=== PATIENT | female | born 1930 | race Caucasian/White ===

== ENCOUNTER 2017-05-22 21:32 | Emergency (ER) | payer OTHER ==
--- NOTE | 2017-05-22 21:51 | PDOC ---
Rapid Medical Evaluation Time Seen by Provider: 05/22/17 21:44 Medical Evaluation: Allergies Allergy/AdvReac Type Severity Reaction Status Date / Time No Known Allergies Allergy Verified 11/16/16 09:17 05/22/17 21:44 I have performed a brief in-person evaluation of this patient. The patient presents with a chief complaint of: Dry cough x3 days. Body aches, fevers, sore throat. Pertinent physical exam findings: PULM:crackles to right base NECK: JVD HEENT: tonsillar swelling. No erythema or exudates. I have ordered the following: CXR, influenza The patient will proceed to the ED for further evaluation. Discharge Disposition - Diagnosis Cough - Referrals Referrals: Diaz Johnson MD [Primary Care Provider] - - Patient Instructions - Post Discharge Activity
[2017-05-22 21:53] VITALS: BP 160/95; PULSE 60; TEMP 98.4; BMI 24.8
[2017-05-22 22:04] LABS: EOS % 9.1 % (0-4.5); HEMATOCRIT 40.8 % (32.4-45.2); HEMOGLOBIN 13.4 GM/dL (10.7-15.3); LYMPH % 23.2 % (8-40); MCH 28.7 pg (25.7-33.7); MCHC 32.8 g/dl (32.0-36.0); MEAN CELL VOLUME 87.4 fl (80-96); MEAN PLT VOLUME 7.7 fl (7.5-11.1); NEUT % 53.7 % (42.8-82.8); RBC 4.67 M/mm3 (3.60-5.2); RDW 13.8 % (11.6-15.6); WHITE BLOOD COUNT 7.1 K/mm3 (4.0-10.0)
[2017-05-22 22:42] LABS: ALBUMIN 3.4 g/dl (3.4-5.0); ALK PHOS 108 U/L (45-117); ANION GAP 7 (8-16); BILIRUBIN,TOTAL 0.4 mg/dL (0.2-1.0); BLOOD UREA NITROGEN 34 mg/dL (7-18); CALCIUM 8.9 mg/dL (8.5-10.1); CHLORIDE 102 mmol/L (98-107); CO2 29 mmol/L (21-32); GLUCOSE,RANDOM 100 mg/dL (74-106); POTASSIUM 3.8 mmol/L (3.5-5.1); SGOT/AST 19 U/L (15-37); SGPT/ALT 9 U/L (12-78); SODIUM 138 mmol/L (136-145); TOT PROT 8.1 g/dl (6.4-8.2)
[2017-05-22] MEDS ORDERED: ALBUTEROL SO4 2.5/IPRATROPIUM 0.5 INH SOL 3 ML VIAL.NEB. NEB ONE (23:09)
--- NOTE | 2017-05-22 23:09 | PDOC ---
History of Present Illness - General Chief Complaint: Respiratory Stated Complaint: COUGH Time Seen by Provider: 05/22/17 21:44 History Source: Patient Exam Limitations: No Limitations - History of Present Illness Initial Comments: This is an 86 YOF with h/o asthma, COPD, a-fib, gastritis, HTN, CO, and CVA, who presents c/o dry cough, sore throat, mild SOB, diffuse body aches, and headache for the past three days. She has been using her normal Advair inhaler as per usual at home, and also uses her home 3 LPM oxygen as needed (not all the time), but has not been taking any additional medications for her symptoms. She denies any fever, chills, nausea, vomiting, diarrhea, constipation, chest pain, new palpitations, leg swelling, or other new symptoms. She is not prone to getting pneumonia. She has gotten bronchitis in the past, but not since 2011. She had the pneumococcal vaccination in 2011. She also had her flu vaccination this year. She denies any current smoking. Past History - Past Medical History Allergies/Adverse Reactions: Allergies Allergy/AdvReac Type Severity Reaction Status Date / Time No Known Allergies Allergy Verified 05/22/17 21:49 Home Medications: Ambulatory Orders Amiodarone HCl 200 mg PO DAILY 05/22/17 Amlodipine Besylate [Norvasc -] 5 mg PO DAILY 05/22/17 Apixaban [Eliquis] 2.5 mg PO BID 05/22/17 Calcium Carbonate/Vitamin D3 [Calcium 600+D Softgel] 1 each PO DAILY 05/22/17 Fluticasone/Salmeterol [Advair Hfa 230-21 Mcg Inhaler] 12 gm IH DAILY 05/22/17 Furosemide [Lasix -] 40 mg PO DAILY 05/22/17 Lipase/Protease/Amylase [Clair Mcgee 36,000 Units Capsule] 1 each PO Q8H 05/22/17 Metoprolol Succinate 25 mg PO BID 05/22/17 Omeprazole 20 mg PO DAILY 05/22/17 Simvastatin 40 mg PO DAILY 05/22/17 Tiotropium [place] [Spiriva] 18 mcg IH PRN 05/22/17 Valsartan [Diovan] 160 mg PO DAILY 05/22/17 Azithromycin 250 mg PO DAILY 4 Days #4 tablet 05/23/17 Asthma: Yes Cancer: No Cardiac Disorders: Yes CVA: Yes (2012 - NO RESIDUAL) COPD: Yes CHF: No Dementia: No Diabetes: No GI Disorders: Yes (GASTRITIS) Disorders: No HTN: Yes Hypercholesterolemia: Yes Liver Disease: No Seizures: No Thyroid Disease: No - Surgical History Abdominal Surgery: No Appendectomy: No Cardiac Surgery: No Cholecystectomy: No Lung Surgery: No Neurologic Surgery: No Orthopedic Surgery: No - Immunization History Immunization Up to Date: No - Suicide/Smoking/Psychosocial Hx Smoking Status: Yes Smoking History: Never smoked Have you smoked in the past 12 months: No Number of Cigarettes Smoked Daily: 0 If you are a former smoker, when did you quit?: 1994 Information on smoking cessation initiated: No Hx Alcohol Use: No Drug/Substance Use Hx: No Substance Use Type: None Hx Substance Use Treatment: No Respiratory Specific PMHX - Complaint Specific PMHX Angina: No Review of Systems - Review of Systems Able to Perform ROS?: Yes Constitutional: Yes: Malaise. No: Chills, Fever, Unexplained wgt Loss HEENTM: Yes: Nose Congestion, Throat Pain Respiratory: Yes: Cough, Shortness of Breath (mild). No: Productive cough Cardiac (ROS): No: Chest Pain, Palpitations ABD/GI: No: Constipated, Diarrhea, Nausea, Vomiting : No: Burning, Dysuria Musculoskeletal: No: Back Pain, Neck Pain Integumentary: No: Bruising, Rash Neurological: Yes: Headache. No: Numbness, Tingling, Weakness, Dizziness Endocrine: No: Unexplained Weight Gain, Unexplained Weight Loss *Physical Exam - Vital Signs Last Vital Signs Temp Pulse Resp BP Pulse Ox 98.4 F 60 20 160/95 91 L 05/22/17 21:50 05/22/17 21:50 05/22/17 21:50 05/22/17 21:50 05/22/17 21:50 - Physical Exam General Appearance: Yes: Nourished, Appropriately Dressed. No: Apparent Distress HEENT: positive: EOMI, Normal Voice, Hearing Grossly Normal. negative: Scleral Icterus (R), Scleral Icterus (L), Nasal Congestion Neck: positive: Trachea midline, Supple. negative: Tender, Rigid Respiratory/Chest: positive: Lungs Clear, Normal Breath Sounds, Decreased Breath Sounds, Wheezing (mild bilateral expiratory). negative: Respiratory Distress, Crackles, Rhonchi, Stridor Cardiovascular: positive: Regular Rhythm, Regular Rate. negative: Edema, JVD, Murmur Gastrointestinal/Abdominal: positive: Normal Bowel Sounds, Soft. negative: Tender, Organomegaly, Pulsatile Mass, Guarding Musculoskeletal: positive: Normal Inspection. negative: Decreased Range of Motion, Vertebral Tenderness Extremity: positive: Normal Capillary Refill, Normal Inspection, Normal Range of Motion. negative: Tender, Cyanosis Integumentary: positive: Normal Color, Dry, Warm. 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 (grossly), Fully Oriented, Alert, Normal Mood/Affect, Normal Response, Motor Strength 09/07 ED Treatment Course - LABORATORY CBC & Chemistry Diagram: 05/22/17 21:50 05/22/17 21:50 - ADDITIONAL ORDERS Additional order review: Laboratory Results 05/22/17 21:50 Sodium 138 Potassium 3.8 Chloride 102 Carbon Dioxide 29 Anion Gap 7 L BUN 34 H Creatinine 2.0 H Creat Clearance w eGFR 23.74 Random Glucose 100 Calcium 8.9 Total Bilirubin 0.4 D AST 19 ALT 9 L Alkaline Phosphatase 108 Total Protein 8.1 Albumin 3.4 05/22/17 21:50 RBC 4.67 MCV 87.4 MCHC 32.8 RDW 13.8 MPV 7.7 Neutrophils % 53.7 Lymphocytes % 23.2 D Monocytes % 13.0 H Eosinophils % 9.1 H D Basophils % 1.0 Medical Decision Making - Medical Decision Making 05/23/17 00:21 On exam she has frequent non-productive cough, decreased breath sounds with faint wheezes. 2+ tonsils but no erythema or exudates, otherwise normal exam. DDX IBNLT bronchitis with concurrent COPD/asthma exacerbation, PNA, URI, etc. Ordered is CBCD, CMP, flu swab, CXR, DuoNebx2. 05/23/17 00:50 Lab work unremarkable, CXR without focal consolidations but with perihilar prominence. On repeat lung exam patient's breath sounds are improved; moving more air. Azithromycin dose ordered for here in the ED and patient will be DCed home with Z-pack Rx. Return precautions are discussed. *DC/Admit/Observation/Transfer Diagnosis at time of Disposition: Bronchitis, History of COPD Asthma Qualifiers: Asthma severity: unspecified severity Asthma persistence: unspecified Asthma complication type: unspecified Qualified Code(s): J45.909 - Unspecified asthma, uncomplicated - Discharge Dispostion Disposition: HOME Condition at time of disposition: Stable Admit: No - Prescriptions Prescriptions: Azithromycin 250 mg PO DAILY 4 Days #4 tablet - Referrals Referrals: Diaz Johnson MD [Primary Care Provider] - - Patient Instructions Printed Discharge Instructions: DI for Acute Bronchitis Additional Instructions: You were seen in the ER for cough and body aches. We did lab work and a chest x- ray as well as a flu swab. The lab work and flu swab do not have concerning results, but the chest x-ray results are consistent with bronchitis. We gave you two breathing treatments and a dose of antibiotics here in the ER. 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 Follow up with your regular doctor in the next two days, or return to the ER with any new or worsening symptoms. Print Language: VIETNAMESE - Post Discharge Activity
[2017-05-22 23:11] LABS: PLATELET COUNT 241 K/MM3 (134-434); PLATELET ESTIMATE ADEQUATE
--- NOTE | 2017-05-22 23:47 | PDOC ---
Attending Attestation - [facility] HPI: 05/22/17 23:56 The patient is a 86 year old female, with a significant past medical history of COPD/asthma, CVA, gastritis, Afib s/p pacemaker, CAD, (3L for 3 minutes PRN), who presents to the emergency department with sore throat, shortness of breath, dry cough, and generalized body aches which has been progressively worsening over the past 3 days. She states this feels like her prior bronchitis experiences. She uses Advair with little to no relief. She denies chest pain, headache and dizziness. She denies fever, chills, nausea , vomit, diarrhea and constipation. She denies dysuria, frequency, urgency and hematuria. PCP: Dr. Franklin - Physicial Exam PE: 05/22/17 23:56 GENERAL: Well developed, well nourished. Awake and alert. No acute distress. HEENT: (+) 2+ Tonsils without exudate or erythema. Normocephalic, atraumatic. PERRLA, EOMI. No conjunctival pallor. Sclera are non-icteric. Moist mucous membranes. NECK: Supple. Full ROM. No JVD. Carotid pulses 2+ and symmetric, without bruits. No thyromegaly. No lymphadenopathy. CARDIOVASCULAR: (+) Left upper hest wall pacemaker. Regular rate and rhythm. No murmurs, rubs, or gallops. Distal pulses are 2+ and symmetric. PULMONARY: (+) Decreased breath sounds bilaterally, persistent dry cough on exam. No wheezing, rales or rhonchi. ABDOMINAL: Soft. Non-tender. Non-distended. No rebound or guarding. No organomegaly. Normoactive bowel sounds. MUSCULOSKELETAL Normal range of motion at all joints. No bony deformities or tenderness. No CVA tenderness. EXTREMITIES: No cyanosis. No clubbing. No edema. No calf tenderness. SKIN: Warm and dry. Normal capillary refill. No rashes. No jaundice. NEUROLOGICAL: Alert, awake, appropriate. Cranial nerves 2-12 intact. Normoreflexic in the upper and lower extremities. Normal speech. Toes are down-going bilaterally. Gait is normal without ataxia. PSYCHIATRIC: Cooperative. Good eye contact. Appropriate mood and affect. __ Documentation prepared by Catina Joel, acting as manager medical affairs for Francisco Javier Anderson DO <Catina Joel - Last Filed: 05/22/17 23:56> - Resident Resident Name: Kasia Nesbitt - ED Attending Attestation I have performed the following: I have examined & evaluated the patient, The case was reviewed & discussed with the resident, I agree w/resident's findings & plan, Exceptions are as noted - Medical Decision Making 05/23/17 20:29 Pt treated and released. <Francisco Javier Anderson - Last Filed: 05/23/17 20:29>
[2017-05-23] MEDS ORDERED: AZITHROMYCIN 500 MG TABLET PO ONE (00:49)
[2017-05-23] MEDS ORDERED: AZITHROMYCIN 500 MG TABLET ONE (01:12)
== END 2017-05-23 01:25 | disposition home or self-care (01) ==
LOC: JER 21:32
PROC: 3E0F7GC Introduction of Other Therapeutic Substance into Respiratory Tract, Via Natural or Artificial Opening (ICD-10-PCS; principal; 2017-05-22)
DX: J40 Bronchitis, not specified as acute or chronic (principal); J44.1 Chronic obstructive pulmonary disease with (acute) exacerbation; J45.909 Unspecified asthma, uncomplicated; I48.91 Unspecified atrial fibrillation; Z79.01 Long term (current) use of anticoagulants; I10 Essential (primary) hypertension; I25.2 Old myocardial infarction; E78.00 Pure hypercholesterolemia, unspecified; Z86.73 Personal history of transient ischemic attack (TIA), and cerebral infarction without residual deficits
CPT/HCPCS: 36415; 71046-TC; 80053; 85025; 87804; 99282-25

== ENCOUNTER 2017-12-11 12:20 | Emergency (ER) | payer OTHER ==
[2017-12-11 12:33] VITALS: PULSE 60; TEMP 97.9; BMI 25.5
--- NOTE | 2017-12-11 13:45 | PDOC ---
History of Present Illness - General Chief Complaint: Pain Stated Complaint: R/O DVT (PCP SENT) Time Seen by Provider: 12/11/17 13:45 History Source: Patient Exam Limitations: No Limitations - History of Present Illness Initial Comments: 12/11/17 19:53 Ms. Owen is a 87 yo F with a hx of COPD, afib, CAD s/p pacemaker and gastritis who presents to the emergency department after referral from PCP for cellulitis vs DVT rule out of right lower extremity. She states the pain began in her distal leg portion 2 weeks ago and a rash appeared 3 days ago. The pain is 8/10 when sitting and 0/10 when standing. Concurrent to this, she developed pain in her left leg without rash. She states she tried using a cream (unknown name) and it provided mild relief for the left leg, but not the right. She denies bugs in the home. Denies the following: recent tracel, prolonged sitting , increased SOB, recent surgery, DVT hx, and prolonged immobilization. Shx: pacemaker 1 year ago Meds: metoprolol, eliquis, furosemide, spirivia, amlodipine, and simvastatin. Allergies: NKDA Social: denies smoking, alcohol, and drug use. 12/11/17 19:55 12/13/17 09:13 Past History - Past Medical History Allergies/Adverse Reactions: Allergies Allergy/AdvReac Type Severity Reaction Status Date / Time No Known Allergies Allergy Verified 12/11/17 12:29 Home Medications: Ambulatory Orders Amiodarone HCl 100 mg PO DAILY 05/22/17 Amlodipine Besylate [Norvasc -] 5 mg PO DAILY 05/22/17 Apixaban [Eliquis] 2.5 mg PO BID 05/22/17 Calcium Carbonate/Vitamin D3 [Calcium 600+D Softgel] 1 each PO DAILY 05/22/17 Fluticasone/Salmeterol [Advair Hfa 230-21 Mcg Inhaler] 12 gm IH DAILY 05/22/17 Furosemide [Lasix -] 40 mg PO DAILY 05/22/17 Lipase/Protease/Amylase [[place]air [place] 36,000 Units Capsule] 1 each PO Q8H 05/22/17 Metoprolol Succinate 25 mg PO BID 05/22/17 Omeprazole 40 mg PO DAILY 05/22/17 Simvastatin 40 mg PO DAILY 05/22/17 Tiotropium [place] [Spiriva] 18 mcg IH PRN 05/22/17 Valsartan [Diovan] 160 mg PO DAILY 05/22/17 Cephalexin [Keflex] 500 mg PO BID #14 capsule 12/11/17 Asthma: Yes Cancer: No Cardiac Disorders: Yes CVA: Yes (2011 - NO RESIDUAL) COPD: Yes CHF: No Dementia: No Diabetes: No GI Disorders: Yes (GASTRITIS) Disorders: No HTN: Yes Hypercholesterolemia: Yes Liver Disease: No Seizures: No Thyroid Disease: No - Surgical History Abdominal Surgery: No Appendectomy: No Cardiac Surgery: No Cholecystectomy: No Lung Surgery: No Neurologic Surgery: No Orthopedic Surgery: No - Immunization History Immunization Up to Date: No - Suicide/Smoking/Psychosocial Hx Smoking Status: Yes Smoking History: Former smoker Have you smoked in the past 12 months: No Number of Cigarettes Smoked Daily: 0 If you are a former smoker, when did you quit?: 1994 Information on smoking cessation initiated: No Hx Alcohol Use: No Drug/Substance Use Hx: No Substance Use Type: None Hx Substance Use Treatment: No Review of Systems - Review of Systems Constitutional: No: Chills, Diaphoresis, Fever HEENTM: No: Recent change in vision, Nose Pain, Throat Pain, Mouth Pain Respiratory: No: Cough, Shortness of Breath Cardiac (ROS): No: Chest Pain, Palpitations ABD/GI: No: Constipated, Diarrhea, Nausea, Rectal Bleeding, Vomiting, Tarry Stools : No: Burning, Dysuria, Hematuria Musculoskeletal: Yes: Muscle Pain (legs right and left). No: Back Pain Integumentary: Yes: Pruritus (left leg), Rash (right leg). No: Bruising Neurological: No: Headache Psychiatric: No: Change in Appetite Endocrine: No: Unexplained Weight Gain Hematologic/Lymphatic: No: Anemia *Physical Exam - Vital Signs Last Vital Signs Temp Pulse Resp BP Pulse Ox 97.9 F 60 20 147/68 93 L 12/11/17 12:29 12/11/17 12:29 12/11/17 12:29 12/11/17 12:29 12/11/17 12:29 - Physical Exam General Appearance: Yes: Nourished, Appropriately Dressed HEENT: positive: EOMI, JANETT Neck: negative: Lymphadenopathy (R), Lymphadenopathy (L) Respiratory/Chest: positive: Lungs Clear, Normal Breath Sounds Cardiovascular: positive: Regular Rhythm, Regular Rate, S1, S2 Vascular Pulses: Dorsalis-Pedis (R): 3+, Doralis-Pedis (L): 3+ Gastrointestinal/Abdominal: positive: Normal Bowel Sounds. negative: Tender Lymphatic: negative: Adenopathy Musculoskeletal: negative: CVA Tenderness Extremity: positive: Normal Capillary Refill, Calf Tenderness (tenderness to palpation in the right calf and mild tenderness to palpation on the left. ), Other (no swelling noted bilaterally. erythamatous rash located distal tibia to proximal foot on left side. 3 raised papule lesions consistent with insect bites on left leg in the proximal tibia. 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 OK interval 164 ms, qtc 462 ms, qrs 112 ms. av dual paced. no st elevations. ED Treatment Course - LABORATORY CBC & Chemistry Diagram: 12/11/17 16:57 12/11/17 16:57 Medical Decision Making - Medical Decision Making 12/13/17 09:20 Ms. Owen is a 87 yo F with a hx of afib, CAD, COPD, and gastritis presenting today for LLE rash and pain after referral from PCP for DVT vs cellulitis r/o. Based on hx and exam, ddx includes cellulitis vs DVT vs atopic dermatitis 2/2 insect bite vs nec fasc r/o. Initial vitals: Initial Vital Signs Temp Pulse Resp BP Pulse Ox 97.9 F 60 20 147/68 93 L 12/11/17 12:29 12/11/17 12:29 12/11/17 12:29 12/11/17 12:29 12/11/17 12:29 Work up: Laboratory Tests 12/11/17 12/11/17 16:57 16:57 WBC 9.9 RBC 4.75 Hgb 14.0 Hct 42.3 MCV 89.0 MCH 29.5 MCHC 33.1 RDW 13.4 Plt Count 229 MPV 8.5 D Absolute Neuts (auto) 6.5 Neutrophils % 65.6 D Lymphocytes % 19.3 Monocytes % 10.7 H Eosinophils % 3.4 Basophils % 1.0 Nucleated RBC % 0 Sodium 145 Potassium 3.9 Chloride 104 Carbon Dioxide 28 Anion Gap 13 BUN 37 H Creatinine 1.9 H Creat Clearance w eGFR 25.12 Random Glucose 81 Calcium 9.6 Total Bilirubin 0.4 AST 26 ALT 10 L Alkaline Phosphatase 101 Total Protein 8.3 H Albumin 3.6 Xray studies showed no abnormalities. Duplex US bilateral showed no DVT. Discharged to home with follow up care and keflex abx outpatient course. 12/13/17 09:20 *DC/Admit/Observation/Transfer Diagnosis at time of Disposition: Cellulitis Qualifiers: Site of cellulitis: extremity Site of cellulitis of extremity: lower extremity Laterality: right Qualified Code(s): L03.115 - Cellulitis of right lower limb - Discharge Dispostion Disposition: HOME Decision to Admit order: No - Prescriptions Prescriptions: Cephalexin [Keflex] 500 mg PO BID #14 capsule - Referrals Referrals: Diaz Johnson MD [Primary Care Provider] - - Patient Instructions Printed Discharge Instructions: DI for Cellulitis -- Adult Additional Instructions: You have been diagnosed with cellulitis. Please see your primary care doctor within 1 day after discharge for follow up care. If symptoms worsen or new concerning symptoms arise, please return to the emergency department. Print Language: ESTONIAN - Post Discharge Activity
--- NOTE | 2017-12-11 15:24 | PDOC ---
Attending Attestation - Resident Resident Name: Bandar Vaca - ED Attending Attestation I have performed the following: I have examined & evaluated the patient, The case was reviewed & discussed with the resident, I agree w/resident's findings & plan, Exceptions are as noted - HPI HPI: 12/11/17 15:24 87 yo F h/o Afib, COPD, CAD s/p PPM, gastritis p/w RLE rash Sent be PMD (Dr Franklin) Pain x 2 weeks, burning pain x 2 days No h/o DVT No immobilization No fevers or chills 12/11/17 18:26 - Physicial Exam PE: 12/11/17 15:23 GENERAL: The patient is in no acute distress. LUNGS: Breath sounds equal, clear to auscultation bilaterally. HEART:Regular rate and rhythm, normal S1 and S2 ABDOMEN: Soft, nontender EXTREMITIES: Normal range of motion, no edema. Right lower leg with erythema, tenderness, NEUROLOGICAL: Cranial nerves II through XII grossly intact. Normal speech. No focal neurological deficits. MUSCULOSKELETAL: Back non-tender to palpation, no CVA tenderness SKIN: Multiple arthropod lesions noted to right leg 12/11/17 18:27 - Medical Decision Making 12/11/17 18:28 EKG: Paced 60 bpm 87 yo F with right leg swelling and erythema (pt on NOAC) Duplex negative Xray pending Skin changes consistent with cellulitis Keflex upon discharge Clinical Impression: Cellulitis, initial presentation Arthropod bites, initial presentation
[2017-12-11 17:13] LABS: EOS % 3.4 % (0-4.5); HEMATOCRIT 42.3 % (32.4-45.2); LYMPH % 19.3 % (8-40); MCH 29.5 pg (25.7-33.7); MCHC 33.1 g/dl (32.0-36.0); MEAN PLT VOLUME 8.5 fl (7.5-11.1); MONO % 10.7 % (3.8-10.2); NEUT % 65.6 % (42.8-82.8); PLATELET COUNT 229 K/MM3 (134-434); RBC 4.75 M/mm3 (3.60-5.2); RDW 13.4 % (11.6-15.6); WHITE BLOOD COUNT 9.9 K/mm3 (4.0-10.0)
[2017-12-11 18:08] LABS: ALBUMIN 3.6 g/dl (3.4-5.0); ANION GAP 13 (8-16); BLOOD UREA NITROGEN 37 mg/dL (7-18); CALCIUM 9.6 mg/dL (8.5-10.1); CHLORIDE 104 mmol/L (98-107); CO2 28 mmol/L (21-32); GLUCOSE,RANDOM 81 mg/dL (74-106); SODIUM 145 mmol/L (136-145)
[2017-12-11 18:13] LABS: ALK PHOS 101 U/L (45-117); BILIRUBIN,TOTAL 0.4 mg/dL (0.2-1.0); CREATININE 1.9 mg/dL (0.55-1.02); SGPT/ALT 10 U/L (12-78); TOT PROT 8.3 g/dl (6.4-8.2)
[2017-12-11 18:21] LABS: POTASSIUM 3.9 mmol/L (3.5-5.1); SGOT/AST 26 U/L (15-37)
[2017-12-11 19:22] VITALS: BP 165/69
--- NOTE | 2017-12-12 16:49 | EKG ---
Test Reason : Blood Pressure : / mmHG Vent. Rate : 060 BPM Atrial Rate : 060 BPM P-R Int : 164 ms QRS Dur : 112 ms QT Int : 462 ms P-R-T Axes : 070 -60 074 degrees QTc Int : 462 ms AV dual-paced rhythm Biventricular pacemaker detected ABNORMAL ECG WHEN COMPARED WITH ECG OF 15-AUG-2015 22:08, ELECTRONIC VENTRICULAR PACEMAKER HAS REPLACED ATRIAL FIBRILLATION VENT. RATE HAS DECREASED BY 83 BPM Confirmed by JUSTEN THIBODEAUX MD ([id number]) on 12/12/2017 3:49:27 PM Referred By: Confirmed By:JUSTEN THIBODEAUX MD
== END 2017-12-11 20:11 | disposition home or self-care (01) ==
LOC: JER 12:20
DX: L03.115 Cellulitis of right lower limb (principal); I48.91 Unspecified atrial fibrillation; I25.10 Atherosclerotic heart disease of native coronary artery without angina pectoris; J44.9 Chronic obstructive pulmonary disease, unspecified
CPT/HCPCS: 36415; 71046-TC-FY; 73590-TC-LT-FY; 73590-TC-RT-FY; 73610-TC-LT-FY; 73610-TC-RT-FY; 73630-TC-LT; 73630-TC-RT-FY; 80053; 85025; 93005; 93010; 93970-TC; 99282-25

== ENCOUNTER 2018-05-18 11:17 | Inpatient (IN) | payer OTHER ==
[2018-05-18] MEDS ORDERED: ALBUTEROL SO4 2.5/IPRATROPIUM 0.5 INH SOL 3 ML VIAL.NEB. NEB ONE (11:35)
[2018-05-18] MEDS: ALBUTEROL SO4 2.5/IPRATROPIUM 0.5 INH SOL 3 ML VIAL.NEB. NEB SCH ×3 (11:59→12:30)
--- NOTE | 2018-05-18 12:00 | PDOC ---
History of Present Illness - General Chief Complaint: Respiratory Stated Complaint: DIFFICULTY BREATHING Time Seen by Provider: 05/18/18 11:37 History Source: Patient Exam Limitations: Language Barrier - History of Present Illness Initial Comments: 87 yo F w a pmh of COPD, afib, HTN, UT, CVA, CAD s/p pacemaker, Cellulitis of lower extremities and gastritis who presents to the emergency department with shortness of breath and difficulty breathing. The patient has no complaints and says she feels well. She does not look well and looks short of breath and having a hard time breathing. Her daughter and granddaughter at bedside say she is not a woman who complains and she has been sick and feeling unwell since April 28. She has had on and off chest pain associated with SOB. The chest pain occurs when she coughs, and the cough is productive. She has also had fevers, muscle aches, rigors, and diarrhea. Patient also endorses eye, lip and facial swelling recently. On re-assessment - I walked into the room and the patient was sitting comfortably eating a chicken panini and sami fries. She has no current complaints. She denies having a headache, blurry vision, neck pain, current chest pain, n/v/ c/d, back pain, abdominal pain. PSH: pacemaker 1 year ago, Unclog a clot from a vein, Femoral popliteal bypass, tubal ligation bladder lift( ?) Allergies: NKDA, NKA Social: denies current smoking, alcohol, and drug use. Former smoker (21 years ago). PCP: Diaz Johnson Urologist: Dr Hao Kincaid Past History - Past Medical History Allergies/Adverse Reactions: Allergies Allergy/AdvReac Type Severity Reaction Status Date / Time No Known Allergies Allergy Verified 05/18/18 11:21 Home Medications: Ambulatory Orders Amlodipine Besylate [Norvasc -] 5 mg PO DAILY 05/22/17 Apixaban [Eliquis] 2.5 mg PO BID 05/22/17 Calcium Carbonate/Vitamin D3 [Calcium 600+D Softgel] 1 each PO DAILY 05/22/17 Fluticasone/Salmeterol [Advair Hfa 230-21 Mcg Inhaler] 12 gm IH DAILY 05/22/17 Furosemide [Lasix -] 40 mg PO DAILY 05/22/17 Lipase/Protease/Amylase [Clair Mcgee 36,000 Units Capsule] 1 each PO Q8H 05/22/17 Metoprolol Succinate 25 mg PO BID 05/22/17 Omeprazole 40 mg PO DAILY 05/22/17 Simvastatin 40 mg PO DAILY 05/22/17 Tiotropium [place] [Spiriva] 18 mcg IH PRN 05/22/17 Valsartan [Diovan] 160 mg PO DAILY 05/22/17 Asthma: Yes Cancer: No Cardiac Disorders: Yes CVA: Yes (2011 - NO RESIDUAL) COPD: Yes CHF: No Dementia: No Diabetes: No GI Disorders: Yes (GASTRITIS) Disorders: No HTN: Yes Hypercholesterolemia: Yes Liver Disease: No Seizures: No Thyroid Disease: No - Surgical History Abdominal Surgery: No Appendectomy: No Cardiac Surgery: No Cholecystectomy: No Lung Surgery: No Neurologic Surgery: No Orthopedic Surgery: No - Immunization History Immunization Up to Date: No - Suicide/Smoking/Psychosocial Hx Smoking Status: Yes Smoking History: Former smoker Have you smoked in the past 12 months: No Number of Cigarettes Smoked Daily: 0 If you are a former smoker, when did you quit?: 1994 Information on smoking cessation initiated: No Hx Alcohol Use: No Drug/Substance Use Hx: No Substance Use Type: None Hx Substance Use Treatment: No Review of Systems - Review of Systems Able to Perform ROS?: Yes Comments:: CONSTITUTIONAL: Absent: fever, no chills, no fatigue EYES: Absent: visual changes ENT: Absent: ear pain, no sore throat CARDIOVASCULAR: Absent: chest pain, no palpitations RESPIRATORY: Absent: cough, no SOB GI: Absent: abdominal pain, no nausea, no vomiting, no constipation, no diarrhea GENITOURINARY: Absent: dysuria, no frequency, no hematuria MUSKULOSKELETAL: Absent: back pain, no arthralgia, no myalgia SKIN: Absent: rash NEURO: Absent: headache *Physical Exam - Vital Signs Last Vital Signs Temp Pulse Resp BP Pulse Ox 97.9 F 71 20 149/51 L 72 L 05/18/18 11:18 05/18/18 11:18 05/18/18 11:18 05/18/18 11:18 05/18/18 11:18 Patient is satting at 90% on 2L NC at bedside. - Physical Exam Comments: GENERAL: Well-appearing, well-nourished. No apparent distress. HEENT: Normocephalic, atraumatic. PERRL, EOM intact. CARDIOVASCULAR: Normal S1, S2. Tachycardic rate and regular rhythm. PULMONARY: Diffuse expiratory wheezes. No crackles, rales, or rhonchi. ABDOMEN: Soft, non-distended, non-tender. EXTREMITIES: Normal ROM in all four extremities. No gross deformities. SKIN: Warm, dry. No rash NEUROLOGICAL: No focal neurological deficits. Moderate Sedation - Procedure Monitoring Vital Signs: Procedure Monitoring Vital Signs Temperature 97.9 F 05/18/18 11:18 Pulse Rate 71 05/18/18 11:18 Respiratory Rate 20 05/18/18 11:18 Blood Pressure 149/51 L 05/18/18 11:18 O2 Sat by Pulse Oximetry (%) 72 L 05/18/18 11:18 ED Treatment Course - LABORATORY CBC & Chemistry Diagram: 05/18/18 12:00 05/18/18 13:35 Medical Decision Making - Medical Decision Making 87 yo F w a pmh of COPD, afib, HTN, UT, CVA, CAD s/p pacemaker, Cellulitis of lower extremities and gastritis who presents to the emergency department with shortness of breath and difficulty breathing. - Productive cough for 2 weeks. DDx IBNLT: COPD, CHF, ACS/UT, PNA, sepsis, gastroenteritis. Plan: Labs, EKG, CXR, Breathing treatments, Re-assess. EKG is Atrial sensed ventricular paced rhythm. CXR is very congested. productive cough and recent fevers. I suspect her recent URI/Bronchitis events triggered her COPD exacerbation. - There can also be an element of CHF in this picture. - Patient did better after breathing treatment. Bronchitis: Starting Abx with Ceftriaxone in ED. *DC/Admit/Observation/Transfer Diagnosis at time of Disposition: Bronchitis, COPD exacerbation - Discharge Dispostion Decision to Admit order: Yes - Referrals - Patient Instructions - Post Discharge Activity
[2018-05-18 12:30] LABS: BASO % 1.1 % (0-2.0); EOS % 2.9 % (0-4.5); HEMOGLOBIN 12.3 GM/dL (10.7-15.3); LYMPH % 19.5 % (8-40); MCH 29.4 pg (25.7-33.7); MCHC 33.2 g/dl (32.0-36.0); MEAN CELL VOLUME 88.7 fl (80-96); MEAN PLT VOLUME 8.2 fl (7.5-11.1); MONO % 8.6 % (3.8-10.2); NEUT % 67.9 % (42.8-82.8); PLATELET COUNT 263 K/MM3 (134-434); RBC 4.17 M/mm3 (3.60-5.2); RDW 14.8 % (11.6-15.6); WHITE BLOOD COUNT 8.8 K/mm3 (4.0-10.0)
[2018-05-18 12:39] LABS: INR 1.23 (0.83-1.09); PROTHROMBIN TIME (PATIENT) 14.6 SEC (9.7-13.0)
--- NOTE | 2018-05-18 12:51 | PDOC ---
Attending Attestation - HPI HPI: 05/18/18 12:53 The patient is a 87 year old female, with a significant past medical history of COPD (3L @ home O2), asthma, CVA, gastritis, Afib (s/p pacemaker), CAD, and [place], who presents to the emergency department with, worsening shortness of breath with associated orthopnea. As per patients family at bedside, she had been sick with a cough and chills for a month and over the course of the past few days she has become increasingly short of breath despite the use of her supplemental oxygen. Family notes she has been unable to sleep well at night secondary to her shortness of breath thus, she has been falling asleep sitting upright. She denies recent headache or dizziness. She denies recent diarrhea or constipation. She denies recent dysuria, frequency, urgency or hematuria. She denies recent chest pain or palpitations. Allergies: NKA Past surgical history: None reported. Social history: > Former smoker (21 years ago) Primary Care Physician: Dr. Diaz Johnson Urologist: Dr. Hao Kincaid <Karen Valdez - Last Filed: 05/18/18 12:53> - Resident Resident Name: Kristofer Vides - ED Attending Attestation I have performed the following: I have examined & evaluated the patient, The case was reviewed & discussed with the resident, I agree w/resident's findings & plan, Exceptions are as noted - Physicial Exam PE: GENERAL: Awake, alert, and fully oriented, in no acute distress HEAD: No signs of trauma EYES: PERRLA, EOMI, sclera anicteric, conjunctiva clear ENT: Auricles normal inspection, hearing grossly normal, nares patent, oropharynx clear without exudates. Moist mucosa NECK: Normal ROM, supple, no lymphadenopathy, JVD, or masses LUNGS: Dec air entry B/L with exp wheezes. HEART: Regular rate and rhythm, normal S1 and S2, no murmurs, rubs or gallops ABDOMEN: Soft, nontender, normoactive bowel sounds. No guarding, no rebound. No masses EXTREMITIES: Normal range of motion, 1+ pitting edema BLE. No clubbing or cyanosis. No cords, erythema, or tenderness NEUROLOGICAL: Cranial nerves II through XII grossly intact. Normal speech. Motor and sensation intact SKIN: Warm, Dry, normal turgor, no rashes or lesions noted. - Medical Decision Making Pt with dec air entry and wheezes on arrival in ED, but also with signs of CHF. Desatting on arrival, improved with initial neb. Will treat for asthma/COPD, await labs. Likely admit. <Martina White - Last Filed: 05/18/18 14:29> Attestations - Attestations 05/18/18 12:54 Documentation prepared by Karen Valdez, acting as certified medical records coder for Martina White MD. <Karen Valdez - Last Filed: 05/18/18 12:53>
[2018-05-18 14:25] LABS: ALBUMIN 2.8 g/dl (3.4-5.0); ALK PHOS 94 U/L (45-117); ANION GAP 6 MMOL/L (8-16); BILIRUBIN,TOTAL 0.3 mg/dL (0.2-1); BLOOD UREA NITROGEN 30 mg/dL (7-18); CALCIUM 8.9 mg/dL (8.5-10.1); CHLORIDE 102 mmol/L (98-107); CO2 32 mmol/L (21-32); CREATININE 1.9 mg/dL (0.55-1.3); GLUCOSE,RANDOM 148 mg/dL (74-106); N-TERMINAL BNP 1315.7 pg/ml (5-450); SGOT/AST 18 U/L (15-37); SGPT/ALT 9 U/L (13-61); SODIUM 141 mmol/L (136-145); TOT PROT 7.3 g/dl (6.4-8.2)
[2018-05-18] MEDS ORDERED: FUROSEMIDE 40 MG/4 ML INJECTABLE VIAL IVPUSH ONE (15:55)
[2018-05-18] MEDS ORDERED: CEFTRIAXONE 1,000 MG in DEXTROSE 5%-WATER - 50 ML IVPB ONE (15:58)
[2018-05-18] MEDS ORDERED: FUROSEMIDE 40 MG/4 ML INJECTABLE VIAL ONE (16:01)
[2018-05-18] MEDS ORDERED: CEFTRIAXONE 1 GM/50 ML BAG ONE (16:22)
[2018-05-18] MEDS ORDERED: methylPREDNISolone NA SUCC 125 MG/2 ML VIAL IVPB ONE (16:37)
[2018-05-18] MEDS ORDERED: methylPREDNISolone NA SUCC 125 MG/2 ML VIAL ONE (16:40)
--- NOTE | 2018-05-18 17:30 | HP ---
CHIEF COMPLAINT: Shortness of breath PCP: Dr. Franklin HISTORY OF PRESENT ILLNESS: Patient is an 87 year old female with history of asthma, COPD, Afib on eliquis, hypertension, prior HI and CVA presents with complaint of shortness of breath. Symptoms have been ongoing since the last week of April when patient endorses subjective fevers, chills, cough productive with whitish sputum. The patient had been hesitant to see a physician sooner, anticipating the symptoms would spontaneously resolve. Today, she continues to endorse worsening shortness of breath associated dry cough and chills. She endorses sharp chast pain associated with repeated coughing episodes. She denies hemoptysis, or stridor. She denies abdominal pain, nausea, vomiting, diarrhea, constipation, dysuria, hematuria. At baseline she ambulates with walker, and is able to walk approx. 1-2 blocks before becoming short of breath. She uses at least three pillows to sleep at night. ER course was notable for: (1) SoluMedrol 125mg IV push, Lasix 40mg IV push, DuoNebs, (2) Rocephin 1 gram IV (3) Chest radiograph Recent Travel: PAST MEDICAL HISTORY: asthma, COPD, Afib on eliquis, CAD s/p poaceamker, hypertension, prior HI and CVA PAST SURGICAL HISTORY: pacemaker placement 1 year ago, urethral sling, Social History: Smoking: former 1 pack per day smoker quit 20 years ago. 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 Family History: Mother: [place], at 82 years old Father: Patient unable to provide history as she never knew her father Allergies: Aspirin- patient reprots hives, and abdominal pain No Known Allergies Allergy (Verified 05/18/18 11:21) HOME MEDICATIONS: Home Medications Medication Instructions Recorded Amlodipine Besylate [Norvasc -] 5 mg PO DAILY 05/22/17 Apixaban [Eliquis] 2.5 mg PO BID 05/22/17 Calcium Carbonate/Vitamin D3 1 each PO DAILY 05/22/17 [Calcium 600+D Softgel] Fluticasone/Salmeterol [Advair Hfa 12 gm IH DAILY 05/22/17 230-21 Mcg Inhaler] Furosemide [Lasix -] 40 mg PO DAILY 05/22/17 Lipase/Protease/Amylase [Clair Mcgee 1 each PO Q8H 05/22/17 36,000 Units Capsule] Metoprolol Succinate 25 mg PO BID 05/22/17 Omeprazole 40 mg PO DAILY 05/22/17 Simvastatin 40 mg PO DAILY 05/22/17 Tiotropium [place] [Spiriva] 18 mcg IH PRN 05/22/17 Valsartan [Diovan] 160 mg PO DAILY 05/22/17 REVIEW OF SYSTEMS CONSTITUTIONAL: Admits: chills, malaise. Absent: fever, diaphoresis, generalized weakness, loss of appetite, weight change HEENT: Absent: rhinorrhea, nasal congestion, throat pain, throat swelling, difficulty swallowing, mouth swelling, ear pain, eye pain, visual changes CARDIOVASCULAR: Admits: chest pain (with coughing) Absent: syncope, palpitations, irregular heart rate, lightheadedness, peripheral edema RESPIRATORY: Admits: cough, shortness of breath, dyspnea with exertion, orthopnea, wheezing. Absent: stridor, hemoptysis GASTROINTESTINAL: Absent: abdominal pain, abdominal distension, nausea, vomiting, diarrhea, constipation, melena, hematochezia GENITOURINARY: Absent: dysuria, frequency, urgency, hesitancy, hematuria, flank pain, genital pain MUSCULOSKELETAL: Absent: myalgia, arthralgia, joint swelling, back pain, neck pain SKIN: Absent: rash, itching, pallor HEMATOLOGIC/IMMUNOLOGIC: Absent: easy bleeding, easy bruising, lymphadenopathy, frequent infections ENDOCRINE: Absent: unexplained weight gain, unexplained weight loss, heat intolerance, cold intolerance NEUROLOGIC: Absent: headache, focal weakness or paresthesias, dizziness, unsteady gait, seizure, mental status changes, bladder or bowel incontinence PSYCHIATRIC: Absent: anxiety, depression, suicidal or homicidal ideation, hallucinations. PHYSICAL EXAMINATION Vital Signs - 24 hr 05/18/18 05/18/18 05/18/18 11:18 12:42 13:14 Temperature 97.9 F Pulse Rate 71 Pulse Rate [ 66 Apical] Respiratory 20 24 H Rate Blood Pressure 149/51 L Blood Pressure 149/71 [Right Arm] O2 Sat by Pulse 72 L 90 L 93 L Oximetry (%) GENERAL: Awake, alert, and fully oriented, in no acute distress. HEAD: Normal with no signs of trauma. EYES: Pupils equal, round and reactive to light, extraocular movements intact, sclera anicteric. EARS, NOSE, THROAT: Oropharynx clear without exudates. Dry mucous membranes. NECK: Normal range of motion, supple without lymphadenopathy. LUNGS: Poor air entry B/L. Faint rhonchi, and expiratory wheezes auscultated at B/L lower lobes. No accessory muscle use. HEART: Regular rate and rhythm, normal S1 and S2 without murmur, rub or gallop. Chest pain reproducible upon palpation. ABDOMEN: Soft, nontender, not distended. Normoactive bowel sounds, no guarding, no rebound, no masses. No hepatomegaly or splenomegaly. MUSCULOSKELETAL: Normal range of motion at all joints. No bony deformities or tenderness. No CVA tenderness. UPPER EXTREMITIES: 2+ radial pulses, warm, well-perfused. LOWER EXTREMITIES: 2+ dorsalis pedis pulses, warm, well-perfused. No calf tenderness. 1+ peripheral edema B/L. NEUROLOGICAL: Cranial nerves II-XII intact. Normal speech. Strength 5/5 b/l upper and lower extremities. PSYCHIATRIC: Cooperative. Appropriate mood and affect upon my encounter SKIN: Warm, dry, Laboratory Results - last 24 hr 05/18/18 05/18/18 05/18/18 12:00 12:00 12:00 WBC 8.8 RBC 4.17 Hgb 12.3 Hct 37.0 MCV 88.7 MCH 29.4 MCHC 33.2 RDW 14.8 D Plt Count 263 MPV 8.2 Absolute Neuts (auto) 6.0 Neutrophils % 67.9 Lymphocytes % 19.5 Monocytes % 8.6 Eosinophils % 2.9 Basophils % 1.1 Nucleated RBC % 0 PT with INR 14.60 H INR 1.23 H Sodium Cancelled Potassium Cancelled Chloride Cancelled Carbon Dioxide Cancelled Anion Gap Cancelled BUN Cancelled Creatinine Cancelled Creat Clearance w eGFR Cancelled Random Glucose Cancelled Calcium Cancelled Total Bilirubin Cancelled AST Cancelled ALT Cancelled Alkaline Phosphatase Cancelled Creatine Kinase Cancelled Troponin I Cancelled B-Natriuretic Peptide Cancelled Total Protein Cancelled Albumin Cancelled Influenza A (Rapid) Influenza B (Rapid) 05/18/18 05/18/18 12:04 13:35 WBC RBC Hgb Hct MCV MCH MCHC RDW Plt Count MPV Absolute Neuts (auto) Neutrophils % Lymphocytes % Monocytes % Eosinophils % Basophils % Nucleated RBC % PT with INR INR Sodium 141 Potassium 4.0 Chloride 102 Carbon Dioxide 32 Anion Gap 6 L BUN 30 H Creatinine 1.9 H Creat Clearance w eGFR 25.12 Random Glucose 148 H Calcium 8.9 Total Bilirubin 0.3 AST 18 ALT 9 L Alkaline Phosphatase 94 Creatine Kinase 99 Troponin I < 0.02 B-Natriuretic Peptide 1315.7 H Total Protein 7.3 Albumin 2.8 L Influenza A (Rapid) Negative Influenza B (Rapid) Negative ASSESSMENT/PLAN: Patient is an 87 year old female with history of asthma, COPD, Afib on eliquis, hypertension, prior HI and CVA presents with complaint of shortness of breath. COPD exacerbation -Likely secondary to bronchitis vs. community acquired pneumonia. There may also be element of CHF exacerbation contributing to her shortness of breath. -Chest Xray shows B/L infiltrates -Influenza A, B negative -Patient received Ceftriaxone 1 gram IV in ED -Ceftriaxone 1 gram IV daily -Azithromycin 500mg IV daily -Patient received Solu-Medrol 125mg IV in ED -Solu-Medrol 60mg IV -Advair 1 puff IH daily -Spiriva 2 puffs IH daily -Albuterol nebulizer Q6H PRN -Nasal canula 2L. Maintain oxygen saturation greater than 90% Costochondritis -Chest pain reproducible upon palpation. Secondary to prolonged coughing -First troponin negative. Will follow troponins. -F/U EKG Congestive heart failure -BNP is 1315.7 (9747 on prior admission 08/2015) -Cardiac ECHO -Continue Lasix 40mg PO daily -Metoprolol 25mg PO BID Atrial fibrillation -[id number] score 7-8 -Metoprolol 25mg PO BID -Eliquis 2.5mg PO BID Hypertension -Amlodipine 5mg PO daily -Valsartan 160mg PO daily Hyperlipidemia -Simvastatin 40mg PO daily Acute on chronic kidney injury -BUN 30, Cr 1.9 (at baseline Cr) -Follow BMP GERD -Omeprazole 40mg PO daily FEN -No IV fluids -Within normal limits. Follow CMP -Sodium controlled diet. Prophylaxis -Patient is on Eliquis 2.5mg PO BID -Omeprazole 40mg PO daily Disposition -Admit to medical surgical floor Visit type - Emergency Visit Emergency Visit: Yes ED Registration Date: 05/18/18 Care time: The patient presented to the Emergency Department on the above date and was hospitalized for further evaluation of their emergent condition. - New Patient This patient is new to me today: Yes Date on this admission: 05/18/18 - Critical Care Critical Care patient: No
[2018-05-18] MEDS ORDERED: PATIENT'S OWN MEDICATION (NON-FORMULARY) (Tiotropium Bromide [Spiriva] 18 MCG) IH SCH (17:45)
--- NOTE | 2018-05-18 17:49 | PN ---
Teaching Attending Note Name of Resident: Heri Sampson ATTENDING PHYSICIAN STATEMENT I saw and evaluated the patient. I reviewed the resident's note and discussed the case with the resident. I agree with the resident's findings and plan as documented. SUBJECTIVE: OBJECTIVE: ASSESSMENT AND PLAN: Pt came with shortness of breath she has acute copd possible pneumonia chf htn atrial fibrillation hyperlipidemia OA Plan is dictated and see orders
--- NOTE | 2018-05-18 19:10 | HP ---
DATE OF ADMISSION: 05/18/2018 CHIEF COMPLAINT: Shortness of breath. HISTORY OF PRESENT ILLNESS: This is an 87-year-old female with a history of COPD, asthma, atrial fibrillation, on blood thinner, cardiac disease, status post pacemaker, hypertension, history of WI and CVA, lives with the family, came to the ER with shortness of breath, going on for a few days, and she was having cough with whitish sputum. She had not seen any physician in the last few days yet and she just tried to manage herself. She came to the ER. In the ER, she was found to have severe shortness of breath and she was immediately given a nebulizer treatment and IV Lasix push and DuoNeb and she quickly improved then. A repeat chest x-ray done in the ER also much different from the last one. Past medical as above. Ex-smoker, quit 20 years ago. The rest of the things are reviewed in the history by the resident. EXAMINATION: General: An elderly woman. She looks very comfortable at this time but mildly short of breath. HEENT: Neck supple. Negative JVD. Lungs: Bilateral she has rales, which are fine, all the way up to the mid lung, and mild wheezing expiratory. Extremities: Negative cyanosis, clubbing, edema. Abdomen: Soft, nontender. No organomegaly and no other symptoms. Neurological: She is alert and awake, oriented, and she is nonfocal. Her labs in the ER are pretty good, which is her white count is normal, hemoglobin normal, so is platelet count. Her PT/INR is slightly elevated but she is taking Eliquis. Her labs showed that her BUN and creatinine is slightly elevated, BUN 30 and creatinine 1.9. We reviewed the old chart. She is always on this number above 2, 2.1, and this is better than before. Her BNP is 1315, which is lower side for the heart failure. Her troponin is negative. In the past, on an old admission, she had BNP in the range of 15,000. Chest x-ray shows chronic congestion and possibly a mild effusion, both sides. ASSESSMENT: 1. Acute shortness of breath, possibly acute chronic obstructive pulmonary disease, possibly pneumonia or respiratory tract infection. 2. Atrial fibrillation. 3. Hypertension. 4. Chronic kidney disease. 5. History of heart failure. 6. Chronic esophageal reflux disease. 7. Osteoporosis. PLAN: Admit to the hospital, start on her dose of Lasix which she is taking at home, at 40 mg. Will continue her home medications including the Eliquis and amlodipine for blood pressure and also Spiriva and Advair, simvastatin, omeprazole, metoprolol, and also the valsartan for blood pressure. We will give IV Solu-Medrol, IV antibiotic with ceftriaxone, nebulizer treatment, and also Zithromax, and physical therapy also, a pulmonary consult with Dr. Pena, and we will follow her up after that. The case has been discussed with resident in detail. KERRIE DUTTON M.D. [id number]
[2018-05-18 20:04] VITALS: BMI 28.1
[2018-05-18] MEDS ORDERED: FLUTICASONE/SALMETEROL 100 MCG/50 MCG DISKUS IH SCH (22:00)
[2018-05-18] MEDS ORDERED: HEPARIN NA (PORCINE) 5,000 UNITS/ML 1ML VIAL SQ SCH (22:00)
[2018-05-18] MEDS: methylPREDNISolone NA SUCC 40 MG/1 ML VIAL IVPUSH SCH (22:25)
[2018-05-18] MEDS: APIXABAN 2.5 MG TABLET PO SCH (22:26)
[2018-05-18] MEDS: metoPROLOL SUCCINATE 25 MG TAB.SR.24H (FP) PO SCH (22:26)
--- NOTE | 2018-05-18 22:27 | EKG ---
Test Reason : Blood Pressure : / mmHG Vent. Rate : 067 BPM Atrial Rate : 067 BPM P-R Int : 106 ms QRS Dur : 110 ms QT Int : 434 ms P-R-T Axes : 032 -77 081 degrees QTc Int : 458 ms Atrial-sensed ventricular-paced rhythm Biventricular pacemaker detected ABNORMAL ECG WHEN COMPARED WITH ECG OF 11-DEC-2017 15:02, VENT. RATE HAS INCREASED BY 7 BPM Confirmed by ARTUR STATON, DILCIA ([id number]) on 05/18/2018 10:27:18 PM Referred By: Confirmed By:DILCIA SIDDIQUI MD
[2018-05-18] MEDS: FLUTICASONE/SALMETEROL 100 MCG/50 MCG DISKUS IH SCH (23:15)
[2018-05-19] MEDS: methylPREDNISolone NA SUCC 40 MG/1 ML VIAL IVPUSH SCH ×4 (02:24→21:31)
[2018-05-19 06:55] LABS: HEMATOCRIT 41.9 % (32.4-45.2); HEMOGLOBIN 13.1 GM/dL (10.7-15.3); MCH 27.9 pg (25.7-33.7); MCHC 31.2 g/dl (32.0-36.0); MEAN CELL VOLUME 89.6 fl (80-96); MEAN PLT VOLUME 8.1 fl (7.5-11.1); PLATELET COUNT 271 K/MM3 (134-434); RBC 4.68 M/mm3 (3.60-5.2); RDW 14.4 % (11.6-15.6); WHITE BLOOD COUNT 8.6 K/mm3 (4.0-10.0)
[2018-05-19 07:43] LABS: ALBUMIN 3.3 g/dl (3.4-5.0); ALK PHOS 117 U/L (45-117); ANION GAP 10 MMOL/L (8-16); BILIRUBIN,TOTAL 0.3 mg/dL (0.2-1); BLOOD UREA NITROGEN 39 mg/dL (7-18); CALCIUM 9.8 mg/dL (8.5-10.1); CHLORIDE 97 mmol/L (98-107); CO2 33 mmol/L (21-32); CREATININE 2.3 mg/dL (0.55-1.3); GLUCOSE,RANDOM 147 mg/dL (74-106); PHOSPHOROUS 4.5 mg/dL (2.5-4.9); POTASSIUM 3.8 mmol/L (3.5-5.1); SGOT/AST 20 U/L (15-37); SGPT/ALT 9 U/L (13-61); SODIUM 140 mmol/L (136-145); TOT PROT 8.6 g/dl (6.4-8.2)
[2018-05-19] MEDS: ALBUTEROL SO4 0.083% IH SOL 2.5 MG/3 ML VIAL.NEB. NEB PRN (08:16)
[2018-05-19] MEDS ORDERED: cefTRIAXone SODIUM 1 GM VIAL ONE (08:36)
[2018-05-19] MEDS ORDERED: PT OWN MED DRAWER 7, Y5N ONE (08:36)
[2018-05-19] MEDS ORDERED: DEXTROSE 5%-WATER - 50 ML IVPB ONE (08:37)
[2018-05-19] MEDS: LIPASE/PROTEASE/AMYLASE 36,000 UNIT CAPSULE PO SCH ×3 (08:46→17:56)
--- NOTE | 2018-05-19 09:15 | PN ---
Physical Exam: SUBJECTIVE: Patient seen and examined at bedside this morning. She is saturating well on 2L nasal canula, and endorses some improvement of her shortness of breath. Denies subjective fevers, chills, shortness of breath, chest pain, palpitations, abdominal pain, nausea, vomiting. OBJECTIVE: Vital Signs Period Temp Pulse Resp BP Sys/Perez Pulse Ox Last 24 Hr 97.6 F-98.1 F 20-80 20-24 133-149/51-75 72-93 GENERAL: Awake, alert, and fully oriented, in no acute distress. HEAD: Normal with no signs of trauma. EYES: Pupils equal, round and reactive to light, extraocular movements intact, sclera anicteric. EARS, NOSE, THROAT: Oropharynx clear without exudates. Dry mucous membranes. NECK: Normal range of motion, supple without lymphadenopathy. LUNGS: Poor air entry B/L. Faint rhonchi, and expiratory wheezes auscultated at B/L lower lobes. No accessory muscle use. HEART: Regular rate and rhythm, normal S1 and S2 without murmur, rub or gallop. Chest pain reproducible upon palpation. ABDOMEN: Soft, nontender, not distended. Normoactive bowel sounds, no guarding, no rebound, no masses. No hepatomegaly or splenomegaly. MUSCULOSKELETAL: Normal range of motion at all joints. No bony deformities or tenderness. No CVA tenderness. UPPER EXTREMITIES: 2+ radial pulses, warm, well-perfused. LOWER EXTREMITIES: 2+ dorsalis pedis pulses, warm, well-perfused. No calf tenderness. Trace peripheral edema B/L. NEUROLOGICAL: Cranial nerves II-XII intact. Normal speech. Strength 5/5 b/l upper and lower extremities. PSYCHIATRIC: Cooperative. Appropriate mood and affect upon my encounter SKIN: Warm, dry. Laboratory Results - last 24 hr 05/18/18 05/18/18 05/18/18 12:00 12:00 12:00 WBC 8.8 RBC 4.17 Hgb 12.3 Hct 37.0 MCV 88.7 MCH 29.4 MCHC 33.2 RDW 14.8 D Plt Count 263 MPV 8.2 Absolute Neuts (auto) 6.0 Neutrophils % 67.9 Lymphocytes % 19.5 Monocytes % 8.6 Eosinophils % 2.9 Basophils % 1.1 Nucleated RBC % 0 PT with INR 14.60 H INR 1.23 H Sodium Cancelled Potassium Cancelled Chloride Cancelled Carbon Dioxide Cancelled Anion Gap Cancelled BUN Cancelled Creatinine Cancelled Creat Clearance w eGFR Cancelled Random Glucose Cancelled Calcium Cancelled Phosphorus Magnesium Total Bilirubin Cancelled AST Cancelled ALT Cancelled Alkaline Phosphatase Cancelled Creatine Kinase Cancelled Troponin I Cancelled B-Natriuretic Peptide Cancelled Total Protein Cancelled Albumin Cancelled Influenza A (Rapid) Influenza B (Rapid) 05/18/18 05/18/18 05/18/18 12:04 13:35 19:45 WBC RBC Hgb Hct MCV MCH MCHC RDW Plt Count MPV Absolute Neuts (auto) Neutrophils % Lymphocytes % Monocytes % Eosinophils % Basophils % Nucleated RBC % PT with INR INR Sodium 141 Potassium 4.0 Chloride 102 Carbon Dioxide 32 Anion Gap 6 L BUN 30 H Creatinine 1.9 H Creat Clearance w eGFR 25.12 Random Glucose 148 H Calcium 8.9 Phosphorus Magnesium Total Bilirubin 0.3 AST 18 ALT 9 L Alkaline Phosphatase 94 Creatine Kinase 99 Troponin I < 0.02 0.02 B-Natriuretic Peptide 1315.7 H Total Protein 7.3 Albumin 2.8 L Influenza A (Rapid) Negative Influenza B (Rapid) Negative 05/19/18 05/19/18 06:00 06:00 WBC 8.6 RBC 4.68 Hgb 13.1 Hct 41.9 MCV 89.6 MCH 27.9 MCHC 31.2 L RDW 14.4 Plt Count 271 MPV 8.1 Absolute Neuts (auto) Neutrophils % Lymphocytes % Monocytes % Eosinophils % Basophils % Nucleated RBC % PT with INR INR Sodium 140 Potassium 3.8 Chloride 97 L Carbon Dioxide 33 H Anion Gap 10 BUN 39 H Creatinine 2.3 H Creat Clearance w eGFR 20.15 Random Glucose 147 H Calcium 9.8 Phosphorus 4.5 Magnesium 2.0 Total Bilirubin 0.3 AST 20 ALT 9 L Alkaline Phosphatase 117 Creatine Kinase Troponin I B-Natriuretic Peptide Total Protein 8.6 H Albumin 3.3 L Influenza A (Rapid) Influenza B (Rapid) Active Medications Generic Name Dose Route Start Last Admin Trade Name Freq PRN Reason Stop Dose Admin Albuterol Sulfate 1 amp 05/18/18 17:45 05/19/18 08:16 Ventolin 0.083% Nebulizer Soln - NEB 1 amp Q6H PRN Administration SHORT OF BREATH/WHEEZING Amlodipine Besylate 5 mg 05/19/18 10:00 Norvasc - PO DAILY [facility] Apixaban 2.5 mg 05/18/18 22:00 05/18/18 22:26 Eliquis - PO 2.5 mg BID [facility] Administration Atorvastatin Calcium 20 mg 05/19/18 22:00 Lipitor - PO HS [facility] Calcium Carbonate/Cholecalciferol 1 tab 05/19/18 10:00 Os-Russ 500+D - PO DAILY [facility] Furosemide 40 mg 05/19/18 10:00 Lasix - PO DAILY [facility] Azithromycin 500 mg in 250 mls @ 250 mls/hr 05/19/18 10:00 Zithromax 500mg Ivpb (Pre-Docked) IVPB DAILY [facility] Ceftriaxone Sodium 1 gm/ 50 mls @ 100 mls/hr 05/19/18 10:00 Dextrose IVPB DAILY [facility] Protocol Methylprednisolone Sodium Succinate 60 mg 05/18/18 21:00 05/19/18 08:46 Solu-Medrol - IVPUSH 60 mg Q6H-IV [facility] Administration Metoprolol Succinate 25 mg 05/18/18 22:00 05/18/18 22:26 Toprol Xl - PO 25 mg BID [facility] Administration Pancrelipase 1 cap 05/19/18 08:00 05/19/18 08:[address] 36,000 Units Capsule PO 1 cap TIDCM [facility] Administration Pantoprazole Sodium 40 mg 05/19/18 10:00 Protonix - PO DAILY [facility] Pneumococcal 13-Valent Conj Vacc 0.5 ml 05/19/18 10:00 Prevnar 13 Syringe - IM 05/19/18 10:01 .ONCE ONE Fluticasone/Salmeterol 1 puff 05/18/18 22:00 05/18/18 23:15 Advair 100mcg/50mcg - IH 1 puff BID [facility] Administration Tiotropium [place] 2 puff 05/19/18 10:00 Spiriva Respimat IH DAILY [facility] Valsartan 160 mg 05/19/18 10:00 Diovan - PO DAILY [facility] ASSESSMENT/PLAN: Patient is an 87 year old female with history of asthma, COPD, Afib on eliquis, hypertension, prior [place] and CVA presents with complaint of shortness of breath. COPD exacerbation -Likely secondary to bronchitis vs. community acquired pneumonia. There may also be element of CHF exacerbation contributing to her shortness of breath. -Chest Xray shows B/L infiltrates -Influenza A, B negative -Ceftriaxone 1 gram IV daily (day 2) -Azithromycin 500mg IV daily (day 2) -Solu-Medrol 60mg IV Q6H -Advair 1 puff IH daily -Spiriva 2 puffs IH daily -Albuterol nebulizer Q6H PRN -Nasal canula 2L. Maintain oxygen saturation greater than 90% Costochondritis -Chest pain reproducible upon palpation. Secondary to prolonged coughing -First troponin negative X2 -EKG shows atrial sensed ventricular paced rhythm at 73BPM Congestive heart failure -BNP is 1315.7 (9747 on prior admission 08/2015) -Cardiac ECHO shows LV normal in size with mild concentric hypertrophy. EF= 55 -60%. -Continue Lasix 40mg PO daily -Metoprolol 25mg PO BID Atrial fibrillation -[id number] score 7-8 -Metoprolol 25mg PO BID -Eliquis 2.5mg PO BID Hypertension -Amlodipine 5mg PO daily -Valsartan 160mg PO daily Hyperlipidemia -Simvastatin 40mg PO daily Acute on chronic kidney injury -BUN 39, Cr 12.3 (at baseline Cr) -Follow BMP GERD -Omeprazole 40mg PO daily FEN -No IV fluids -Within normal limits. Follow CMP -Sodium controlled diet. Prophylaxis -Patient is on Eliquis 2.5mg PO BID -Omeprazole 40mg PO daily Disposition -Continue care in medical surgical floor Visit type - Emergency Visit Emergency Visit: Yes ED Registration Date: 05/18/18 Care time: The patient presented to the Emergency Department on the above date and was hospitalized for further evaluation of their emergent condition. - New Patient This patient is new to me today: No - Critical Care Critical Care patient: No - Discharge Referral Referred to [facility] Med P.C.: No
--- NOTE | 2018-05-19 09:49 | EKG ---
Test Reason : Blood Pressure : / mmHG Vent. Rate : 073 BPM Atrial Rate : 073 BPM P-R Int : 124 ms QRS Dur : 112 ms QT Int : 444 ms P-R-T Axes : 031 -71 080 degrees QTc Int : 489 ms Atrial-sensed ventricular-paced rhythm Biventricular pacemaker detected ABNORMAL ECG WHEN COMPARED WITH ECG OF 18-MAY-2018 11:35, VENT. RATE HAS INCREASED BY 6 BPM Confirmed by MELINA STATON, CLAUDIA ([id number]) on 05/19/2018 9:49:16 AM Referred By: Confirmed By:CLAUDIA SUMMERS MD
[2018-05-19] MEDS ORDERED: PATIENT'S OWN MEDICATION (NON-FORMULARY) (Tiotropium Bromide [Spiriva] 18 MCG) IH SCH (10:00)
[2018-05-19] MEDS ORDERED: PNEUMOC 13-VAL CONJ-DIP CRM/PF 0.5 ML DISP.SYRIN IM ONE (10:00)
[2018-05-19] MEDS ORDERED: PATIENT'S OWN MEDICATION (NON-FORMULARY) (Fluticasone/Salmeterol [Advair Hfa 230-21 Mcg In IH SCH (10:00)
[2018-05-19] MEDS: VALSARTAN 160 MG TABLET (UD) PO SCH (10:24)
[2018-05-19] MEDS: PANTOPRAZOLE 40 MG TABLET (FP) PO SCH (10:24)
[2018-05-19] MEDS: FUROSEMIDE 40 MG TABLET (FP) PO SCH (10:24)
[2018-05-19] MEDS: CALCIUM 500MG/VIT-D 200 UNITS COMBO TABLET (FP) PO SCH (10:24)
[2018-05-19] MEDS: APIXABAN 2.5 MG TABLET PO SCH ×2 (10:24→22:32)
[2018-05-19] MEDS: metoPROLOL SUCCINATE 25 MG TAB.SR.24H (FP) PO SCH ×2 (10:24→22:32)
[2018-05-19] MEDS: amLODIPine BESYLATE 5 MG TABLET (FP) PO SCH (10:24)
[2018-05-19] MEDS: AZITHROMYCIN IVPB 500 MG/250 ML BAG IVPB SCH (10:25)
[2018-05-19] MEDS: CEFTRIAXONE 1 GM in DEXTROSE 5%-WATER - 50 ML IVPB SCH (10:26)
[2018-05-19] MEDS: FLUTICASONE/SALMETEROL 100 MCG/50 MCG DISKUS IH SCH ×2 (10:28→22:36)
[2018-05-19] MEDS: TIOTROPIUM BROMIDE 2.5 MCG (SPIRIVA) RESPIMAT INHALER IH SCH (14:02)
--- NOTE | 2018-05-19 15:46 | ECHO ---
Name: THOMAS RYAN Exam:Adult Echocardiogram Study Date: 05/19/2018 03:11 PM Age: 87 yrs Reason For Study: SOB Height: 58 in Weight: 130 lb BSA: 1.5 m2 MMode/2D Measurements & Calculations IVSd: 1.3 cm Ao root diam: 2.0 cm LVIDd: 4.0 cm ACS: 2.0 cm LVIDs: 3.7 cm LVPWd: 0.79 cm EDV(Teich): 69.6 ml RV S Tejas: 12.3 cm/sec ESV(Teich): 58.3 ml Doppler Measurements & Calculations TR max tejas: 363.5 cm/sec Med Peak E' Tejas: 6.2 cm/sec TR max P.9 mmHg Procedure A complete two-dimensional transthoracic echocardiogram was performed (2D, M-mode, Doppler and color flow Doppler). Technically limited study. Left Ventricle The left ventricle is normal in size. There is mild concentric left ventricular hypertrophy. Left portillo tricular systolic function is normal. Ejection Fraction = 55-60%. No regional wall motion abnormalities noted. Right Ventricle The right ventricle is normal size. The right ventricular systolic function is normal. RV systolic TD I is 12 cm/s. Atria The left atrial size is normal. Right atrial size is normal. Mitral Valve There is mild mitral annular calcification. There is mild mitral regurgitation. Tricuspid Valve The tricuspid valve is normal in structure and function. There is mild to moderate tricuspid regurgit ation. Pulmonary artery systolic pressure is at least 55 mmHg assuming RA pressure of 3 mmHg. Aortic Valve There is mild aortic sclerosis.;. No aortic regurgitation is present. Pulmonic Valve The pulmonic valve is not well visualized. Great Vessels The aortic root is normal size. Pericardium/Pleura There is no pericardial effusion. Interpretation Summary Technically limited study The left ventricle is normal in size. There is mild concentric left ventricular hypertrophy. Left ventricular systolic function is normal. No regional wall motion abnormalities noted. Ejection Fraction = 55-60%. The right ventricular systolic function is normal. The left atrial size is normal. Right atrial size is normal. There is mild mitral annular calcification. There is mild mitral regurgitation. There is mild to moderate tricuspid regurgitation. Pulmonary artery systolic pressure is at least 55 mmHg assuming RA pressure of 3 mmHg There is mild aortic sclerosis. There is no pericardial effusion. Previous study is not available for comparison El Deleon MD 05/19/2018 03:45 PM
--- NOTE | 2018-05-19 19:39 | PN ---
Teaching Attending Note Name of Resident: Heri Sampson ATTENDING PHYSICIAN STATEMENT I saw and evaluated the patient. I reviewed the resident's note and discussed the case with the resident. I agree with the resident's findings and plan as documented. SUBJECTIVE: Feeling okay, still has mild dyspnea. No fever/chills OBJECTIVE: Afebrile/Hemodynamically Stable. Last Vital Signs Temp Pulse Resp BP Pulse Ox 98.2 F 72 18 127/65 97 05/19/18 13:32 05/19/18 13:32 05/19/18 13:32 05/19/18 13:32 05/19/18 09:00 HEENT - Atraumatic, Normocephalic Heart - S1, S2, RRR Lungs - bibasal crackles, no wheeze Abdomen - soft, non-tender. Bowel Sounds normal. Extremities - no calf tenderness. LE edema ++ Neuro - AAO x 3. Tone/Power normal all 4 extremities. Laboratory Results - last 24 hr 05/18/18 05/19/18 05/19/18 19:45 06:00 06:00 WBC 8.6 RBC 4.68 Hgb 13.1 Hct 41.9 MCV 89.6 MCH 27.9 MCHC 31.2 L RDW 14.4 Plt Count 271 MPV 8.1 Sodium 140 Potassium 3.8 Chloride 97 L Carbon Dioxide 33 H Anion Gap 10 BUN 39 H Creatinine 2.3 H Creat Clearance w eGFR 20.15 Random Glucose 147 H Calcium 9.8 Phosphorus 4.5 Magnesium 2.0 Total Bilirubin 0.3 AST 20 ALT 9 L Alkaline Phosphatase 117 Troponin I 0.02 Total Protein 8.6 H Albumin 3.3 L Current Medications Generic Name Dose Route Start Last Admin Trade Name Freq PRN Reason Stop Dose Admin Albuterol Sulfate 1 amp 05/18/18 17:45 05/19/18 08:16 Ventolin 0.083% Nebulizer Soln - NEB 1 amp Q6H PRN Administration SHORT OF BREATH/WHEEZING Amlodipine Besylate 5 mg 05/19/18 10:00 05/19/18 10:24 Norvasc - PO 5 mg DAILY [facility] Administration Apixaban 2.5 mg 05/18/18 22:00 05/19/18 10:24 Eliquis - PO 2.5 mg BID [facility] Administration Atorvastatin Calcium 20 mg 05/19/18 22:00 Lipitor - PO HS [facility] Calcium Carbonate/Cholecalciferol 1 tab 05/19/18 10:00 05/19/18 10:24 Os-Russ 500+D - PO 1 tab DAILY [facility] Administration Furosemide 40 mg 05/19/18 10:00 05/19/18 10:24 Lasix - PO 40 mg DAILY [facility] Administration Azithromycin 500 mg in 250 mls @ 250 mls/hr 05/19/18 10:00 05/19/18 10:25 Zithromax 500mg Ivpb (Pre-Docked) IVPB 250 mls/hr DAILY [facility] Administration Ceftriaxone Sodium 1 gm/ 50 mls @ 100 mls/hr 05/19/18 10:00 05/19/18 10:26 Dextrose IVPB 100 mls/hr DAILY [facility] Administration Protocol Methylprednisolone Sodium Succinate 60 mg 05/18/18 21:00 05/19/18 14:08 Solu-Medrol - IVPUSH 60 mg Q6H-IV [facility] Administration Metoprolol Succinate 25 mg 05/18/18 22:00 05/19/18 10:24 Toprol Xl - PO 25 mg BID [facility] Administration Pancrelipase 1 cap 05/19/18 08:00 05/19/18 17:56 Clair Mcgee 36,000 Units Capsule PO 1 cap TIDCM [facility] Administration Pantoprazole Sodium 40 mg 05/19/18 10:00 05/19/18 10:24 Protonix - PO 40 mg DAILY [facility] Administration Fluticasone/Salmeterol 1 puff 05/18/18 22:00 05/19/18 10:28 Advair 100mcg/50mcg - IH 1 puff BID [facility] Administration Tiotropium [place] 2 puff 05/19/18 10:00 05/19/18 14:02 Spiriva Respimat IH 2 puff DAILY [facility] Administration Valsartan 160 mg 05/19/18 10:00 05/19/18 10:24 Diovan - PO 160 mg DAILY [facility] Administration ASSESSMENT AND PLAN: 87 year old female with history of Asthma/COPD, Atrial Fibrillation on Eliquis, Hypertension, CAD s/p IA, s/p PPM, and CVA presents with shortness of breath, subjective fevers/chills/cough. 1. Acute Exacerbation COPD with R sided Pneumonia Flu neg. Urine legionella/Strep Ags requested. Continue Ceftriaxone and Azithromycin. Continue Solumedrol, Advair, Spiriva, DuoNebs. Wean off O2 (to maintain SpO2 > 90%) 2. Acute decompensation of Chronic diastolic CHF Received 40mg Lasix IVP in ED Bibasal crackles on auscultation - will give another 20 mg IVP Lasix in addition to daily oral Lasix dose of 40mg and monitor response. Echo - normal EF, LVH Daily weight and I/Os. 3. CAD s/p IA - Continue BB, ARB 4. Atrial fibrillation Continue Metoprolol and Eliquis. 5. HTN - continue Amlodipine and Valsartan 6. HLD -Continue Simvastatin 7. CKD 3 - Appears stable. Will monitor after Lasix. 8. GERD - Continue PPI DVT Px - on Eliquis.
[2018-05-19] MEDS ORDERED: FUROSEMIDE 40 MG/4 ML INJECTABLE VIAL IVPUSH ONE (19:45)
[2018-05-19] MEDS: ATORVASTATIN CA 20 MG TABLET (FP) PO SCH (22:32)
[2018-05-20] MEDS: methylPREDNISolone NA SUCC 40 MG/1 ML VIAL IVPUSH SCH ×3 (02:18→14:14)
[2018-05-20 08:08] LABS: ALBUMIN 2.7 g/dl (3.4-5.0); ALK PHOS 102 U/L (45-117); ANION GAP 9 MMOL/L (8-16); BILIRUBIN,TOTAL 0.3 mg/dL (0.2-1); BLOOD UREA NITROGEN 57 mg/dL (7-18); CALCIUM 8.8 mg/dL (8.5-10.1); CHLORIDE 99 mmol/L (98-107); CO2 30 mmol/L (21-32); CREATININE 2.3 mg/dL (0.55-1.3); GLUCOSE,RANDOM 158 mg/dL (74-106); POTASSIUM 4.6 mmol/L (3.5-5.1); SGOT/AST 36 U/L (15-37); SGPT/ALT 8 U/L (13-61); SODIUM 138 mmol/L (136-145); TOT PROT 7.7 g/dl (6.4-8.2)
[2018-05-20] MEDS ORDERED: cefTRIAXone SODIUM 1 GM VIAL ONE (08:41)
[2018-05-20] MEDS ORDERED: DEXTROSE 5%-WATER - 50 ML IVPB ONE (08:42)
[2018-05-20] MEDS: ALBUTEROL SO4 0.083% IH SOL 2.5 MG/3 ML VIAL.NEB. NEB PRN (08:56)
[2018-05-20] MEDS: CEFTRIAXONE 1 GM in DEXTROSE 5%-WATER - 50 ML IVPB SCH (09:36)
[2018-05-20] MEDS: metoPROLOL SUCCINATE 25 MG TAB.SR.24H (FP) PO SCH ×2 (09:38→21:18)
[2018-05-20] MEDS: FUROSEMIDE 40 MG TABLET (FP) PO SCH (09:38)
[2018-05-20] MEDS: LIPASE/PROTEASE/AMYLASE 36,000 UNIT CAPSULE PO SCH ×3 (09:38→18:52)
[2018-05-20] MEDS: amLODIPine BESYLATE 5 MG TABLET (FP) PO SCH (09:38)
[2018-05-20] MEDS: AZITHROMYCIN IVPB 500 MG/250 ML BAG IVPB SCH (09:38)
[2018-05-20] MEDS: CALCIUM 500MG/VIT-D 200 UNITS COMBO TABLET (FP) PO SCH (09:38)
[2018-05-20] MEDS: PANTOPRAZOLE 40 MG TABLET (FP) PO SCH (09:38)
[2018-05-20] MEDS: VALSARTAN 160 MG TABLET (UD) PO SCH (09:38)
[2018-05-20] MEDS: TIOTROPIUM BROMIDE 2.5 MCG (SPIRIVA) RESPIMAT INHALER IH SCH (09:41)
[2018-05-20] MEDS: FLUTICASONE/SALMETEROL 100 MCG/50 MCG DISKUS IH SCH ×2 (09:41→21:22)
[2018-05-20] MEDS: APIXABAN 2.5 MG TABLET PO SCH ×2 (09:42→21:18)
[2018-05-20] MEDS ORDERED: predniSONE 20 MG TABLET (UD) PO ONE (14:32)
--- NOTE | 2018-05-20 14:56 | PN ---
Physical Exam: SUBJECTIVE: Patient seen and examined at bedside this morning. She endorses improvement of her shortness of breath. Denies subjective fevers, chills, shortness of breath, chest pain, palpitations, abdominal pain, nausea, vomiting. OBJECTIVE: Vital Signs Period Temp Pulse Resp BP Sys/Perez Pulse Ox Last 24 Hr 97.6 F-98.5 F 68-88 18-18 115-131/50-69 97 GENERAL: Awake, alert, and fully oriented, in no acute distress. HEAD: Normal with no signs of trauma. EYES: Pupils equal, round and reactive to light, extraocular movements intact, sclera anicteric. EARS, NOSE, THROAT: Oropharynx clear without exudates. Dry mucous membranes. NECK: Normal range of motion, supple without lymphadenopathy. LUNGS: Improving air entry B/L. Faint bibasilar crackles auscultated at B/L. No accessory muscle use. HEART: Regular rate and rhythm, normal S1 and S2 without murmur, rub or gallop. Chest pain reproducible upon palpation. ABDOMEN: Soft, nontender, not distended. Normoactive bowel sounds, no guarding, no rebound, no masses. No hepatomegaly or splenomegaly. MUSCULOSKELETAL: Normal range of motion at all joints. No bony deformities or tenderness. No CVA tenderness. UPPER EXTREMITIES: 2+ radial pulses, warm, well-perfused. LOWER EXTREMITIES: 2+ dorsalis pedis pulses, warm, well-perfused. No calf tenderness. Trace peripheral edema B/L. NEUROLOGICAL: Cranial nerves II-XII intact. Normal speech. Strength 5/5 b/l upper and lower extremities. PSYCHIATRIC: Cooperative. Appropriate mood and affect upon my encounter SKIN: Warm, dry. Laboratory Results - last 24 hr 05/20/18 06:30 Sodium 138 Potassium 4.6 Chloride 99 Carbon Dioxide 30 Anion Gap 9 BUN 57 H Creatinine 2.3 H Creat Clearance w eGFR 20.15 Random Glucose 158 H Calcium 8.8 Total Bilirubin 0.3 AST 36 ALT 8 L Alkaline Phosphatase 102 Total Protein 7.7 Albumin 2.7 L Active Medications Generic Name Dose Route Start Last Admin Trade Name Freq PRN Reason Stop Dose Admin Albuterol Sulfate 1 amp 05/18/18 17:45 05/20/18 08:56 Ventolin 0.083% Nebulizer Soln - NEB 1 amp Q6H PRN Administration SHORT OF BREATH/WHEEZING Amlodipine Besylate 5 mg 05/19/18 10:00 05/20/18 09:38 Norvasc - PO 5 mg DAILY [facility] Administration Apixaban 2.5 mg 05/18/18 22:00 05/20/18 09:42 Eliquis - PO 2.5 mg BID [facility] Administration Atorvastatin Calcium 20 mg 05/19/18 22:00 05/19/18 22:32 Lipitor - PO 20 mg HS [facility] Administration Calcium Carbonate/Cholecalciferol 1 tab 05/19/18 10:00 05/20/18 09:38 Os-Russ 500+D - PO 1 tab DAILY [facility] Administration Furosemide 40 mg 05/19/18 10:00 05/20/18 09:38 Lasix - PO 40 mg DAILY [facility] Administration Azithromycin 500 mg in 250 mls @ 250 mls/hr 05/19/18 10:00 05/20/18 09:38 Zithromax 500mg Ivpb (Pre-Docked) IVPB 250 mls/hr DAILY [facility] Administration Ceftriaxone Sodium 1 gm/ 50 mls @ 100 mls/hr 05/19/18 10:00 05/20/18 09:36 Dextrose IVPB 100 mls/hr DAILY [facility] Administration Protocol Metoprolol Succinate 25 mg 05/18/18 22:00 05/20/18 09:38 Toprol Xl - PO 25 mg BID [facility] Administration Pancrelipase 1 cap 05/19/18 08:00 05/20/18 14:15 Clair Mcgee 36,000 Units Capsule PO 1 cap TIDCM [facility] Administration Pantoprazole Sodium 40 mg 05/19/18 10:00 05/20/18 09:38 Protonix - PO 40 mg DAILY [facility] Administration Fluticasone/Salmeterol 1 puff 05/18/18 22:00 05/20/18 09:41 Advair 100mcg/50mcg - IH 1 puff BID [facility] Administration Tiotropium [place] 2 puff 05/19/18 10:00 05/20/18 09:41 Spiriva Respimat IH 2 puff DAILY [facility] Administration Valsartan 160 mg 05/19/18 10:00 05/20/18 09:38 Diovan - PO 160 mg DAILY [facility] Administration ASSESSMENT/PLAN: Patient is an 87 year old female with history of asthma, COPD, Afib on eliquis, hypertension, prior [place] and CVA presents with complaint of shortness of breath. COPD exacerbation -Likely secondary to bronchitis vs. community acquired pneumonia. There may also be element of CHF exacerbation contributing to her shortness of breath. -Chest Xray shows B/L infiltrates -Influenza A, B negative -Ceftriaxone 1 gram IV daily (day 3) -Azithromycin 500mg IV daily (day 3) -Prednisone 60mg PO daily -Advair 1 puff IH daily -Spiriva 2 puffs IH daily -Albuterol nebulizer Q6H PRN -Nasal canula 2L. Maintain oxygen saturation greater than 90% Costochondritis -Chest pain reproducible upon palpation. Secondary to prolonged coughing -First troponin negative X2 -EKG shows atrial sensed ventricular paced rhythm at 73BPM Congestive heart failure -BNP is 1315.7 (9747 on prior admission 08/2015) -Cardiac ECHO shows LV normal in size with mild concentric hypertrophy. EF= 55 -60%. -Continue Lasix 40mg PO daily -Metoprolol 25mg PO BID Atrial fibrillation -[id number] score 7-8 -Metoprolol 25mg PO BID -Eliquis 2.5mg PO BID Hypertension -Amlodipine 5mg PO daily -Valsartan 160mg PO daily Hyperlipidemia -Simvastatin 40mg PO daily Acute on chronic kidney injury -BUN 57, Cr 2.3 (at baseline Cr) -Follow BMP GERD -Omeprazole 40mg PO daily FEN -No IV fluids -Within normal limits. Follow CMP -Sodium controlled diet. Prophylaxis -Patient is on Eliquis 2.5mg PO BID -Omeprazole 40mg PO daily Disposition -Continue care in medical surgical floor Visit type - Emergency Visit Emergency Visit: Yes ED Registration Date: 05/18/18 Care time: The patient presented to the Emergency Department on the above date and was hospitalized for further evaluation of their emergent condition. - New Patient This patient is new to me today: No - Critical Care Critical Care patient: No - Discharge Referral Referred to [facility] Med P.C.: No
--- NOTE | 2018-05-20 17:35 | PN ---
Teaching Attending Note Name of Resident: Heri Sampson ATTENDING PHYSICIAN STATEMENT I saw and evaluated the patient. I reviewed the resident's note and discussed the case with the resident. I agree with the resident's findings and plan as documented. SUBJECTIVE: Much improved. No fever/chills OBJECTIVE: Afebrile/Hemodynamically Stable. Last Vital Signs Temp Pulse Resp BP Pulse Ox 98.1 F 81 18 110/52 L 97 05/20/18 14:55 05/20/18 14:55 05/20/18 14:55 05/20/18 14:55 05/20/18 09:00 HEENT - Atraumatic, Normocephalic Heart - S1, S2, RRR Lungs - bibasal crackles, no wheeze Abdomen - soft, non-tender. Bowel Sounds normal. Extremities - no calf tenderness. LE edema + Neuro - AAO x 3. Tone/Power normal all 4 extremities. Laboratory Results - last 24 hr 05/20/18 06:30 Sodium 138 Potassium 4.6 Chloride 99 Carbon Dioxide 30 Anion Gap 9 BUN 57 H Creatinine 2.3 H Creat Clearance w eGFR 20.15 Random Glucose 158 H Calcium 8.8 Total Bilirubin 0.3 AST 36 ALT 8 L Alkaline Phosphatase 102 Total Protein 7.7 Albumin 2.7 L Current Medications Generic Name Dose Route Start Last Admin Trade Name Osvaldoq PRN Reason Stop Dose Admin Albuterol Sulfate 1 amp 05/18/18 17:45 05/20/18 08:56 Ventolin 0.083% Nebulizer Soln - NEB 1 amp Q6H PRN Administration SHORT OF BREATH/WHEEZING Amlodipine Besylate 5 mg 05/19/18 10:00 05/20/18 09:38 Norvasc - PO 5 mg DAILY [facility] Administration Apixaban 2.5 mg 05/18/18 22:00 05/20/18 09:42 Eliquis - PO 2.5 mg BID [facility] Administration Atorvastatin Calcium 20 mg 05/19/18 22:00 05/19/18 22:32 Lipitor - PO 20 mg HS [facility] Administration Calcium Carbonate/Cholecalciferol 1 tab 05/19/18 10:00 05/20/18 09:38 Os-Russ 500+D - PO 1 tab DAILY [facility] Administration Furosemide 40 mg 05/19/18 10:00 05/20/18 09:38 Lasix - PO 40 mg DAILY [facility] Administration Azithromycin 500 mg in 250 mls @ 250 mls/hr 05/19/18 10:00 05/20/18 09:38 Zithromax 500mg Ivpb (Pre-Docked) IVPB 250 mls/hr DAILY [facility] Administration Ceftriaxone Sodium 1 gm/ 50 mls @ 100 mls/hr 05/19/18 10:00 05/20/18 09:36 Dextrose IVPB 100 mls/hr DAILY [facility] Administration Protocol Metoprolol Succinate 25 mg 05/18/18 22:00 05/20/18 09:38 Toprol Xl - PO 25 mg BID [facility] Administration Pancrelipase 1 cap 05/19/18 08:00 05/20/18 14:15 Clair Mcgee 36,000 Units Capsule PO 1 cap TIDCM [facility] Administration Pantoprazole Sodium 40 mg 05/19/18 10:00 05/20/18 09:38 Protonix - PO 40 mg DAILY [facility] Administration Fluticasone/Salmeterol 1 puff 05/18/18 22:00 05/20/18 09:41 Advair 100mcg/50mcg - IH 1 puff BID [facility] Administration Tiotropium [place] 2 puff 05/19/18 10:00 05/20/18 09:41 Spiriva Respimat IH 2 puff DAILY [facility] Administration Valsartan 160 mg 05/19/18 10:00 05/20/18 09:38 Diovan - PO 160 mg DAILY [facility] Administration ASSESSMENT AND PLAN: 87 year old female with history of CRF sec to COPD, Atrial Fibrillation on Eliquis, Hypertension, CAD s/p AR, s/p PPM, and CVA presents with shortness of breath, subjective fevers/chills/cough. 1. Acute on Chronic Respiratory Failure sec to Acute Exacerbation COPD with R sided Pneumonia Flu neg. Urine legionella/Strep Ags requested. Continue Ceftriaxone and Azithromycin. IV Solumedrol changed to Prednisone po. Continue Advair, Spiriva, DuoNebs. Supplemental O2 to maintain SpO2 > 90% Recommend follow up with Pulmonary on discharge. 2. Acute decompensation of Chronic Diastolic CHF Received several doses of IV Lasix - to continue on home dose Lasix 40mg oral. Echo - normal EF, LVH Daily weight and I/Os. 3. CAD s/p AR - Continue BB, ARB 4. Atrial fibrillation Continue Metoprolol and Eliquis. 5. HTN - continue Amlodipine and Valsartan 6. HLD - Continue Simvastatin 7. CKD 3 - Appears stable. 8. GERD - Continue PPI DVT Px - on Eliquis.
[2018-05-20] MEDS: ATORVASTATIN CA 20 MG TABLET (FP) PO SCH (21:18)
[2018-05-21 07:12] LABS: HEMATOCRIT 38.4 % (32.4-45.2); HEMOGLOBIN 12.4 GM/dL (10.7-15.3); MCH 29.1 pg (25.7-33.7); MCHC 32.4 g/dl (32.0-36.0); MEAN CELL VOLUME 89.7 fl (80-96); MEAN PLT VOLUME 8.3 fl (7.5-11.1); PLATELET COUNT 279 K/MM3 (134-434); RBC 4.28 M/mm3 (3.60-5.2); RDW 14.7 % (11.6-15.6); WHITE BLOOD COUNT 15.2 K/mm3 (4.0-10.0)
[2018-05-21 07:39] LABS: ALK PHOS 114 U/L (45-117); ANION GAP 5 MMOL/L (8-16); BILIRUBIN,TOTAL 0.7 mg/dL (0.2-1); BLOOD UREA NITROGEN 61 mg/dL (7-18); CALCIUM 8.7 mg/dL (8.5-10.1); CHLORIDE 101 mmol/L (98-107); CO2 34 mmol/L (21-32); CREATININE 2.2 mg/dL (0.55-1.3); GLUCOSE,RANDOM 126 mg/dL (74-106); POTASSIUM 3.4 mmol/L (3.5-5.1); SGOT/AST 21 U/L (15-37); SGPT/ALT 8 U/L (13-61); SODIUM 140 mmol/L (136-145); TOT PROT 7.4 g/dl (6.4-8.2)
[2018-05-21] MEDS ORDERED: POTASSIUM CHLORIDE TABS 10 MEQ TABLET.ER (FP) PO ONE (08:30)
[2018-05-21] MEDS ORDERED: cefTRIAXone SODIUM 1 GM VIAL ONE (08:36)
[2018-05-21] MEDS ORDERED: DEXTROSE 5%-WATER - 50 ML IVPB ONE (08:36)
[2018-05-21] MEDS ORDERED: PT OWN MED DRAWER 7, Y5N ONE (08:36)
[2018-05-21] MEDS: AZITHROMYCIN IVPB 500 MG/250 ML BAG IVPB SCH (11:00)
[2018-05-21] MEDS: CEFTRIAXONE 1 GM in DEXTROSE 5%-WATER - 50 ML IVPB SCH (11:02)
[2018-05-21] MEDS: APIXABAN 2.5 MG TABLET PO SCH (11:03)
[2018-05-21] MEDS: LIPASE/PROTEASE/AMYLASE 36,000 UNIT CAPSULE PO SCH ×2 (11:03→12:26)
[2018-05-21] MEDS: PANTOPRAZOLE 40 MG TABLET (FP) PO SCH (11:03)
[2018-05-21] MEDS: FUROSEMIDE 40 MG TABLET (FP) PO SCH (11:04)
[2018-05-21] MEDS: CALCIUM 500MG/VIT-D 200 UNITS COMBO TABLET (FP) PO SCH (11:05)
[2018-05-21] MEDS: VALSARTAN 160 MG TABLET (UD) PO SCH (11:11)
[2018-05-21] MEDS: FLUTICASONE/SALMETEROL 100 MCG/50 MCG DISKUS IH SCH (11:12)
[2018-05-21] MEDS: amLODIPine BESYLATE 5 MG TABLET (FP) PO SCH (11:13)
[2018-05-21] MEDS: TIOTROPIUM BROMIDE 2.5 MCG (SPIRIVA) RESPIMAT INHALER IH SCH (11:13)
[2018-05-21] MEDS: metoPROLOL SUCCINATE 25 MG TAB.SR.24H (FP) PO SCH (11:13)
[2018-05-21] MEDS ORDERED: predniSONE 20 MG TABLET (UD) PO ONE (11:25)
[2018-05-21 13:17] VITALS: TEMP 98.2
[2018-05-21 14:25] VITALS: BP 116/52
--- NOTE | 2018-05-21 14:42 | DS ---
Physical Exam: SUBJECTIVE: Patient seen and examined at bedside this morning. She endorses improvement of her shortness of breath. Denies subjective fevers, chills, shortness of breath, chest pain, palpitations, abdominal pain, nausea, vomiting. OBJECTIVE: Vital Signs Period Temp Pulse Resp BP Sys/Perez Pulse Ox Last 24 Hr 97.8 F-98.7 F 61-82 18-20 110-126/51-65 97-97 PHYSICAL EXAM GENERAL: Awake, alert, and fully oriented, in no acute distress. HEAD: Normal with no signs of trauma. EYES: Pupils equal, round and reactive to light, extraocular movements intact, sclera anicteric. EARS, NOSE, THROAT: Oropharynx clear without exudates. Dry mucous membranes. NECK: Normal range of motion, supple without lymphadenopathy. LUNGS: Improving air entry B/L. Faint bibasilar crackles auscultated at B/L. No accessory muscle use. HEART: Regular rate and rhythm, normal S1 and S2 without murmur, rub or gallop. Chest pain reproducible upon palpation. ABDOMEN: Soft, nontender, not distended. Normoactive bowel sounds, no guarding, no rebound, no masses. No hepatomegaly or splenomegaly. MUSCULOSKELETAL: Normal range of motion at all joints. No bony deformities or tenderness. No CVA tenderness. UPPER EXTREMITIES: 2+ radial pulses, warm, well-perfused. LOWER EXTREMITIES: 2+ dorsalis pedis pulses, warm, well-perfused. No calf tenderness. Trace peripheral edema B/L. NEUROLOGICAL: Cranial nerves II-XII intact. Normal speech. Strength 5/5 b/l upper and lower extremities. PSYCHIATRIC: Cooperative. Appropriate mood and affect upon my encounter SKIN: Warm, dry. LABS Laboratory Results - last 24 hr 05/21/18 05/21/18 06:00 06:00 WBC 15.2 H RBC 4.28 Hgb 12.4 Hct 38.4 MCV 89.7 MCH 29.1 MCHC 32.4 RDW 14.7 Plt Count 279 MPV 8.3 Sodium 140 Potassium 3.4 L Chloride 101 Carbon Dioxide 34 H Anion Gap 5 L BUN 61 H Creatinine 2.2 H Creat Clearance w eGFR 21.21 Random Glucose 126 H Calcium 8.7 Total Bilirubin 0.7 AST 21 ALT 8 L Alkaline Phosphatase 114 Total Protein 7.4 Albumin 3.0 L HOSPITAL COURSE: Date of Admission:05/18/18 Date of Discharge: 05/21/18 Patient is an 87 year old female with history of asthma, COPD (on home oxygen), Afib on eliquis, hypertension, prior [place] and CVA presents with complaint of shortness of breath. Admitted for acute on chronic COPD exacerbation likely secondary to bronchitis vs. community acquired pneumonia. Chest Xray showed bilateral infiltrates upon admission. Influenza A, B negative. She was started on Ceftriaxone and Azithromyicin, and SoluMedrol. She complained of chest pain, which was secondary to costochondritis, reproducible upon palpation. Troponin negative X2. Cardiac ECHO showed LV normal in size with mild concentric hypertrophy. EF= 55 -60%. Home lasix was continued. Afib rate controlled with Metoprolol, and Eliquis for anticoagulation. Hypertension managed with Amlodipine and Valsartan. Patient was provided portable home oxygen tank. Walker arranged for home delivery. Patient was discharged with Azithromycin and Ceftin for two additional days to complete 5 day total course, and 4 more days of Prednisone to complete 5 day taper. She was discharged with follow up with primary care physician. Minutes to complete discharge: 35 Discharge Summary Reason For Visit: ACUTE EXACERBATION OF CHRONIC OBSTRUCTIVE Current Active Problems Bronchitis (Acute) COPD exacerbation (Acute) Asthma (Chronic) CHF (congestive heart failure) (Chronic) History of COPD (Chronic) History of atrial fibrillation (Chronic) Condition: Stable - Instructions Diet, Activity, Other Instructions: You were admitted to hospital with shortness of breath, and were treated with antibiotics, steroids, and breathing treatments. You are being discharged home. Continue taking your home medications as directed. You will continue taking steroid Prednisone 40mg daily for the next 4 days. You will continue taking antibiotics: Ceftin 500mg every 12 hours for the next two days, and Azithromycin 500mg daily for the next two days. Continue using your home oxygen as directed. A rolling walker will be delivered to your residence. Follow up with your primary care physician Dr. Johnson within two- three days of discharge. Follow up with your light industrial within one week of discharge. Return to the nearest Emergency Department if your experience any worsening symptoms, fevers, chills, shortness of breath, chest pain, palpitations, abdominal pain, nausea, vomiting. Referrals: Diaz Johnson MD [Staff Physician] - Disposition: HOME - Home Medications Comprehensive Discharge Medication List: Ambulatory Orders Amlodipine Besylate [Norvasc -] 5 mg PO DAILY 05/22/17 Apixaban [Eliquis] 2.5 mg PO BID 05/22/17 Calcium Carbonate/Vitamin D3 [Calcium 600+D Softgel] 1 each PO DAILY 05/22/17 Fluticasone/Salmeterol [Advair Hfa 230-21 Mcg Inhaler] 12 gm IH DAILY 05/22/17 Furosemide [Lasix -] 40 mg PO DAILY 05/22/17 Lipase/Protease/Amylase [[place] 36,000 Units Capsule] 1 each PO Q8H 05/22/17 Metoprolol Succinate 25 mg PO BID 05/22/17 Omeprazole 40 mg PO DAILY 05/22/17 Simvastatin 40 mg PO DAILY 05/22/17 Tiotropium [place] [Spiriva] 18 mcg IH BID 05/22/17 Valsartan [Diovan] 160 mg PO DAILY 05/22/17 Azithromycin 500 mg PO DAILY 2 Days #2 tablet 05/21/18 Cefuroxime Axetil [Ceftin -] 500 mg PO Q12H 2 Days #4 tablet 05/21/18 Miscellaneous Medical Supply [Outpatient Order] 1 each ASDIR #1 misc Prednisone [Deltasone] 40 mg PO DAILY 4 Days #8 tablet 05/21/18 This patient is new to me today: No Emergency Visit: Yes ED Registration Date: 05/18/18 Care time: The patient presented to the Emergency Department on the above date and was hospitalized for further evaluation of their emergent condition. Critical Care patient: No - Discharge Referral Referred to [facility] No
--- NOTE | 2018-05-21 16:03 | PN ---
Teaching Attending Note Name of Resident: Heri Sampson ATTENDING PHYSICIAN STATEMENT I saw and evaluated the patient. I reviewed the resident's note and discussed the case with the resident. I agree with the resident's findings and plan as documented. SUBJECTIVE: Feels well - no further dyspnea. OBJECTIVE: Afebrile/Hemodynamically Stable. Last Vital Signs Temp Pulse Resp BP Pulse Ox 98.2 F 75 20 116/52 L 97 05/21/18 14:24 05/21/18 14:24 05/21/18 14:24 05/21/18 14:24 05/21/18 09:00 HEENT - Atraumatic, Normocephalic Heart - S1, S2, RRR Lungs - few bibasal crackles, no wheeze, good air entry Abdomen - soft, non-tender. Bowel Sounds normal. Extremities - no calf tenderness. LE edema + Neuro - AAO x 3. Tone/Power normal all 4 extremities. Laboratory Results - last 24 hr 05/21/18 05/21/18 06:00 06:00 WBC 15.2 H RBC 4.28 Hgb 12.4 Hct 38.4 MCV 89.7 MCH 29.1 MCHC 32.4 RDW 14.7 Plt Count 279 MPV 8.3 Sodium 140 Potassium 3.4 L Chloride 101 Carbon Dioxide 34 H Anion Gap 5 L BUN 61 H Creatinine 2.2 H Creat Clearance w eGFR 21.21 Random Glucose 126 H Calcium 8.7 Total Bilirubin 0.7 AST 21 ALT 8 L Alkaline Phosphatase 114 Total Protein 7.4 Albumin 3.0 L Current Medications Generic Name Dose Route Start Last Admin Trade Name Freq PRN Reason Stop Dose Admin Albuterol Sulfate 1 amp 05/18/18 17:45 05/20/18 08:56 Ventolin 0.083% Nebulizer Soln - NEB 1 amp Q6H PRN Administration SHORT OF BREATH/WHEEZING Amlodipine Besylate 5 mg 05/19/18 10:00 05/21/18 11:13 Norvasc - PO 5 mg DAILY KESHAWN Administration Apixaban 2.5 mg 05/18/18 22:00 05/21/18 11:03 Eliquis - PO 2.5 mg BID KESHAWN Administration Atorvastatin Calcium 20 mg 05/19/18 22:00 05/20/18 21:18 Lipitor - PO 20 mg HS KESHAWN Administration Calcium Carbonate/Cholecalciferol 1 tab 05/19/18 10:00 05/21/18 11:05 Os-Russ 500+D - PO 1 tab DAILY KESHAWN Administration Furosemide 40 mg 05/19/18 10:00 05/21/18 11:04 Lasix - PO 40 mg DAILY KESHAWN Administration Azithromycin 500 mg in 250 mls @ 250 mls/hr 05/19/18 10:00 05/21/18 11:00 Zithromax 500mg Ivpb (Pre-Docked) IVPB 250 mls/hr DAILY KESHAWN Administration Ceftriaxone Sodium 1 gm/ 50 mls @ 100 mls/hr 05/19/18 10:00 05/21/18 11:02 Dextrose IVPB 100 mls/hr DAILY KESHAWN Administration Protocol Metoprolol Succinate 25 mg 05/18/18 22:00 05/21/18 11:13 Toprol Xl - PO 25 mg BID KESHAWN Administration Pancrelipase 1 cap 05/19/18 08:00 05/21/18 12:[address] 36,000 Units Capsule PO 1 cap TIDCM KESHAWN Administration Pantoprazole Sodium 40 mg 05/19/18 10:00 05/21/18 11:03 Protonix - PO 40 mg DAILY KESHAWN Administration Fluticasone/Salmeterol 1 puff 05/18/18 22:00 05/21/18 11:12 Advair 100mcg/50mcg - IH 1 puff BID KESHAWN Administration Tiotropium [place] 2 puff 05/19/18 10:00 05/21/18 11:13 Spiriva Respimat IH 2 puff DAILY KESHAWN Administration Valsartan 160 mg 05/19/18 10:00 05/21/18 11:11 Diovan - PO 160 mg DAILY KESHAWN Administration ASSESSMENT AND PLAN: 87 year old female with history of CRF sec to COPD, Atrial Fibrillation on Eliquis, Hypertension, CAD s/p [place], s/p PPM, and CVA presents with shortness of breath, subjective fevers/chills/cough. 1. Acute on Chronic Respiratory Failure sec to Acute Exacerbation COPD with R sided Community Acquired Pneumonia Flu neg. Urine legionella/Strep Ags requested. Continue Ceftriaxone and Azithromycin. IV Solumedrol changed to Prednisone po. Continue Advair, Spiriva, DuoNebs. Supplemental O2 to maintain SpO2 > 90% Medically Stable for discharge on home O2 and Prednisone. Recommend follow up with Pulmonary on discharge. 2. Acute decompensation of Chronic Diastolic CHF Received several doses of IV Lasix - to continue on home dose Lasix 40mg oral. Echo - normal EF, LVH 3. CAD s/p [place] - Continue BB, ARB 4. Atrial fibrillation Continue Metoprolol and Eliquis. 5. HTN - continue Amlodipine and Valsartan 6. HLD - Continue Simvastatin 7. CKD 3 - Appears stable. 8. GERD - Continue PPI 9. Hypokalemia - repleted. 10. Leukocytosis - sec to Steroid. Medically optimized for discharge on home O2 and course of oral Prednisone with Pulmonary follow up.
[2018-05-21 17:19] VITALS: PULSE 78
== END 2018-05-21 19:17 | disposition home or self-care (01) | DRG 291 ==
LOC: JER 11:17 → JERBED 16:01 → J7W 19:25
PROVIDERS: ADMIT Internal Medicine
DX: I13.0 Hypertensive heart and chronic kidney disease with heart failure and stage 1 through stage 4 chronic kidney disease, or unspecified chronic kidney disease (principal); J18.9 Pneumonia, unspecified organism; I50.33 Acute on chronic diastolic (congestive) heart failure; J96.20 Acute and chronic respiratory failure, unspecified whether with hypoxia or hypercapnia; J44.1 Chronic obstructive pulmonary disease with (acute) exacerbation; L03.116 Cellulitis of left lower limb; L03.115 Cellulitis of right lower limb; N17.9 Acute kidney failure, unspecified; E78.5 Hyperlipidemia, unspecified; I48.91 Unspecified atrial fibrillation; I25.10 Atherosclerotic heart disease of native coronary artery without angina pectoris; I25.2 Old myocardial infarction; M94.0 Chondrocostal junction syndrome [Tietze]; K21.9 Gastro-esophageal reflux disease without esophagitis; M19.90 Unspecified osteoarthritis, unspecified site; N18.3 Chronic kidney disease, stage 3 (moderate); E87.6 Hypokalemia; D72.829 Elevated white blood cell count, unspecified; Z86.73 Personal history of transient ischemic attack (TIA), and cerebral infarction without residual deficits; Z87.891 Personal history of nicotine dependence; Z95.0 Presence of cardiac pacemaker
CPT/HCPCS: 36415; 71045-TC-FY; 71046-TC-FY; 80053; 82550; 83735; 83880; 84100; 84484; 85025; 85027; 85610; 87040; 87804; 90670; 93005; 93010; 93306-TC; 94640; 94761; 99283-25

== ENCOUNTER 2018-11-02 20:50 | Inpatient (IN) | payer OTHER ==
--- NOTE | 2018-11-02 21:09 | PDOC ---
History of Present Illness - General Chief Complaint: Chest Pain Stated Complaint: CHEST PAIN Time Seen by Provider: 11/02/18 21:09 History Source: Patient, Restaurant Assistant Used Exam Limitations: Language Barrier - History of Present Illness Initial Comments: 11/02/18 22:04 HPI/ROS performed with phone historical interpreter [id number] 88 year old female with PMH HTN, HLD, COPD/asthma on home O2 (3-4L), GERD, atrial fibrillation on Eliquis, pacer presented to ED for chest pain x2 weeks. Pt reported her pain is intermittent, substernal, non-radiating, aggravation by exertion, alleviated by rest. Pt admitted to shortness of breath, symmetrical lower extremity swelling and FRYE x1 month, worsening over the last week. Pt endorsed nonproductive cough. Pt denied fever, sputum production, nausea, vomiting. Pt also admitted to entire right sided back pain. Past History - Past Medical History Allergies/Adverse Reactions: Allergies Allergy/AdvReac Type Severity Reaction Status Date / Time No Known Allergies Allergy Verified 11/03/18 00:03 Home Medications: Ambulatory Orders Amlodipine Besylate [Norvasc -] 5 mg PO DAILY 05/22/17 Apixaban [Eliquis] 2.5 mg PO BID 05/22/17 Calcium Carbonate/Vitamin D3 [Calcium 600+D Softgel] 1 each PO WEEKLY 05/22/17 Fluticasone/Salmeterol [Advair Hfa 230-21 Mcg Inhaler] 12 gm IH DAILY 05/22/17 Furosemide [Lasix -] 20 mg PO DAILY 05/22/17 Lipase/Protease/Amylase [Clair Dr 36,000 Units Capsule] 1 each PO Q8H 05/22/17 Metoprolol Succinate 25 mg PO BID 05/22/17 Omeprazole 40 mg PO DAILY 05/22/17 Simvastatin 40 mg PO DAILY 05/22/17 Tiotropium [place] [Spiriva] 2.5 mcg IH BID 05/22/17 Ferrous Sulfate [Iron] 325 mg PO DAILY 11/03/18 Anemia: No Asthma: Yes Cancer: No Cardiac Disorders: Yes CVA: Yes (2011 - NO RESIDUAL) COPD: Yes CHF: No Dementia: No Diabetes: No GI Disorders: Yes (GASTRITIS) Disorders: No HTN: Yes Hypercholesterolemia: Yes Liver Disease: No Seizures: No Thyroid Disease: No - Surgical History Abdominal Surgery: No Appendectomy: No Cardiac Surgery: No Cholecystectomy: No Lung Surgery: No Neurologic Surgery: No Orthopedic Surgery: No - Immunization History Immunization Up to Date: No - Suicide/Smoking/Psychosocial Hx Smoking Status: Yes Smoking History: Former smoker Have you smoked in the past 12 months: No Number of Cigarettes Smoked Daily: 0 If you are a former smoker, when did you quit?: 1994 Information on smoking cessation initiated: No Hx Alcohol Use: No Drug/Substance Use Hx: No Substance Use Type: None Hx Substance Use Treatment: No Review of Systems - Review of Systems Able to Perform ROS?: Yes Comments:: 11/02/18 22:03 General: denied fever, chills, generalized weakness. HEENT: denied sore throat, rhinorrhea, ear pain. Heart: admitted to chest pain. denied palpitations, syncope, diaphoresis. Respiratory: admitted to shortness of breath, cough. denied sputum production, hemoptysis. Abdomen: denied abdominal pain, nausea, vomiting, diarrhea, constipation, blood in stool. : denied dysuria, increased urinary frequency, hematuria, urinary incontinence , flank pain. Back: admitted to back pain. Musculoskeletal: denied joint swelling and joint pain. Neurological: denied headache, dizziness, numbness, tingling, weakness. Skin: denied rash, laceration, abrasion. *Physical Exam - Vital Signs Last Vital Signs Temp Pulse Resp BP Pulse Ox 97.9 F 66 147/54 L 11/02/18 21:03 11/02/18 21:03 11/02/18 21:03 - Physical Exam Comments: 11/02/18 22:03 Constitutional: Well-nourished, Well-developed, appearing stated age. HEENT: head is normocephalic, atraumatic. EOMI. PERRLA. Neck: supple. Full ROM. Heart: regular rhythm. no murmurs, rubs or gallops. Lungs: bibasilar crackles. no wheezing. speaking full sentences. actively coughing. sounds congested. Abdomen: soft, nontender. normal bowel sounds. no rebound, guarding, masses. Back: no tenderness to palpation of paraspinal T-L spine. no midline T-L spine tenderness to palpation. no step offs. Extremities: peripheral pulses intact. 3+ pitting edema bilateral lower extremities. Neurological: CN 2-12 grossly intact. moves all four extremities. Psych: awake, alert, oriented x3. follows commands. answers questions appropriately. Heart Score/ECG Review - History History: Moderately suspicious - Electrocardiogram EKG: Non specific repolarization disturbance - Age Age: >/= 65 - Risk Factors Risk Factors Heart Score: Yes Hx Hypercholesterolemia, Yes Hx Hypertension, Yes Hx Obesity Based on the list above the patient has:: >/=3 risk factors or Hx atherosclerotic disease - Troponin Troponin: </= normal limit - Score Heart Score - Total: 6 ED Treatment Course - LABORATORY CBC & Chemistry Diagram: 11/04/18 06:00 11/04/18 06:00 Medical Decision Making - Medical Decision Making 11/02/18 21:59 88 year old female with above PMH presented to ED for exertional chest pain x2 weeks, SOB/FRYE x1 month worsening over the last week. Clinically appears fluid overloaded - examination significant for peripheral edema, pulmonary edema, hypoxia. PCP - Dr. Ruano Cardiology - Dr. Agatha Garza Chart review: -Admitted 05/18/18 for COPD exacerbation, bilateral infiltrates -ECHO showed EF 55-60% -Discharged 05/21/18 on Azithromycin, Ceftin and prednisone Initial Vital Signs Temp Pulse BP Pulse Ox 97.9 F 66 147/54 L 72 L 11/02/18 21:03 11/02/18 21:03 11/02/18 21:03 11/02/18 21:03 Afebrile. No tachycardia. No tachypnea. Mild systolic hypertension. Hypoxia on room air. -Pt placed on nonrebreather, currently satting 100% EKG performed at 2048: rate 66, AV dual paced rhythm, regular rhythm, left axis , normal intervals, flipped T V1/V2, flat T I/II/III/V6. EKG performed 05/19/18 shows no TWI in V2, with upright T in the lateral leads. Labs ordered: CBC, CMP, Mag, Troponin, BNP, ABG Imaging ordered: CXR Medications ordered: ASA 162 mg PO chew once 11/02/18 22:08 CBC WBC 8.5 K/mm3 (4.0-10.0) 11/02/18 21:14 RBC 4.10 M/mm3 (3.60-5.2) 11/02/18 21:14 Hgb 11.4 GM/dL (10.7-15.3) 11/02/18 21:14 Hct 35.2 % (32.4-45.2) 11/02/18 21:14 MCV 85.9 fl (80-96) 11/02/18 21:14 MCH 27.9 pg (25.7-33.7) 11/02/18 21:14 MCHC 32.5 g/dl (32.0-36.0) 11/02/18 21:14 RDW 15.6 % (11.6-15.6) 11/02/18 21:14 Plt Count 257 K/MM3 (134-434) 11/02/18 21:14 MPV 8.4 fl (7.5-11.1) 11/02/18 21:14 Absolute Neuts (auto) 6.0 K/mm3 (1.5-8.0) 11/02/18 21:14 Neutrophils % 70.8 % (42.8-82.8) 11/02/18 21:14 Lymphocytes % 16.4 % (8-40) 11/02/18 21:14 Monocytes % 8.4 % (3.8-10.2) 11/02/18 21:14 Eosinophils % 2.9 % (0-4.5) 11/02/18 21:14 Basophils % 1.5 % (0-2.0) 11/02/18 21:14 Nucleated RBC % 0 % (0-0) 11/02/18 21:14 No leukocytosis. No anemia. CMP hemolyzed. -Pending repeat 11/02/18 22:16 Coags hemolyzed -Will reorder with second troponin 11/02/18 22:17 ABG Results y ABG pH y 7.30 (7.35-7.45) L 11/02/18 21:53 r ABG pCO2 at Pt Temp r 62.7 mmHg (35-45) H 11/02/18 21:53 ABG pO2 at Pt Temp 190 mmHg (80-105) H 11/02/18 21:53 ABG HCO3 29.9 mmol/L (22-27) H 11/02/18 21:53 ABG O2 Sat (Measured) 99.6 % (95-98) H 11/02/18 21:53 ABG O2 Content 16.9 % vol (15-22) 11/02/18 21:53 ABG Base Excess 2.6 meq/l (-2-2) H 11/02/18 21:53 Respiratory acidosis -CO2 retention -Metabolic compensation COPD exacerbation suspected as some component of dyspnea. -Medications ordered: solumedrol Pt transitioned from nonrebreather to nasal cannula 4L to preserve respiratory drive. 11/02/18 22:36 CMP Sodium 141 mmol/L (136-145) 11/02/18 21:53 Potassium 4.8 mmol/L (3.5-5.1) 11/02/18 21:53 Chloride 105 mmol/L (98-107) 11/02/18 21:53 Carbon Dioxide 30 mmol/L (21-32) 11/02/18 21:53 Anion Gap 6 MMOL/L (8-16) L 11/02/18 21:53 BUN 39.0 mg/dL (7-18) H 11/02/18 21:53 Creatinine 2.6 mg/dL (0.55-1.3) H 11/02/18 21:53 Est GFR (CKD-EPI)AfAm 18.61 11/02/18 21:53 Est GFR (CKD-EPI)NonAf 16.06 11/02/18 21:53 Random Glucose 109 mg/dL (74-106) H 11/02/18 21:53 Calcium 8.8 mg/dL (8.5-10.1) 11/02/18 21:53 Magnesium 2.4 mg/dL (1.8-2.4) 11/02/18 21:53 Total Bilirubin 0.3 mg/dL (0.2-1) 11/02/18 21:53 AST 29 U/L (15-37) 11/02/18 21:53 ALT 13 U/L (13-61) 11/02/18 21:53 Alkaline Phosphatase 114 U/L (45-117) 11/02/18 21:53 Troponin I < 0.02 ng/ml (0.00-0.05) 11/02/18 21:53 B-Natriuretic Peptide 1841.8 pg/ml (5-450) H 11/02/18 21:53 Total Protein 7.3 g/dl (6.4-8.2) 11/02/18 21:53 Albumin 3.2 g/dl (3.4-5.0) L 11/02/18 21:53 No electrolyte abnormalities. PAULA - last Cr 2.2 - pt clinically appears fluid overloaded, will hold fluids at this time. No transaminitis Troponin undetectable BNP elevation - fits clinical picture of fluid overload Pt has mixed picture of COPD/CHF exacerbation. Pending CXR. -Medications ordered: Lasix 20 mg IV once 11/02/18 22:45 CXR shows pulmonary vascular congestion, possible bibasilar infiltrates, looks similar to prior when pt had bilateral pneumonia. -Will treat. -Pending official report Medications ordered: Ceftriazone 1g IV once, Azithromycin 500 PO once Labs ordered: blood cultures, PT/PTT/INR 11/02/18 23:45 Pt signed out to Dr. Cadet, IM resident. Pt to be admitted under Dr. Morales's service. Pending admission. 11/04/18 13:38 Follow up: *DC/Admit/Observation/Transfer Diagnosis at time of Disposition: COPD exacerbation, FRYE (dyspnea on exertion), Chest pain, Acute electrocardiogram changes, Acute on chronic diastolic CHF (congestive heart failure), Pneumonia - Discharge Dispostion Condition at time of disposition: Stable Decision to Admit order: Yes - Referrals - Patient Instructions - Post Discharge Activity
[2018-11-02] MEDS ORDERED: ASPIRIN 81 MG CHEWABLE TABLETS PO ONE (21:10)
[2018-11-02] MEDS ORDERED: ASPIRIN 81 MG CHEWABLE TABLETS ONE (21:38)
[2018-11-02 21:43] LABS: BASO % 1.5 % (0-2.0); EOS % 2.9 % (0-4.5); HEMATOCRIT 35.2 % (32.4-45.2); HEMOGLOBIN 11.4 GM/dL (10.7-15.3); LYMPH % 16.4 % (8-40); MCH 27.9 pg (25.7-33.7); MCHC 32.5 g/dl (32.0-36.0); MEAN CELL VOLUME 85.9 fl (80-96); MEAN PLT VOLUME 8.4 fl (7.5-11.1); MONO % 8.4 % (3.8-10.2); NEUT % 70.8 % (42.8-82.8); RDW 15.6 % (11.6-15.6); WHITE BLOOD COUNT 8.5 K/mm3 (4.0-10.0)
[2018-11-02 21:48] LABS: PLATELET COUNT 257 K/MM3 (134-434)
[2018-11-02 22:12] LABS: ARTERIAL BLD GAS O2 SATURATION 99.6 % (95-98); ARTERIAL BLOOD GAS BASE EXCESS 2.6 meq/l (-2-2); ARTERIAL BLOOD GAS PCO2 62.7 mmHg (35-45); ARTERIAL BLOOD GAS PO2 190 mmHg (80-105)
[2018-11-02 22:16] LABS: CARBOXYHEMOGLOBIN 1.2 % (0-2)
[2018-11-02] MEDS ORDERED: methylPREDNISolone NA SUCC 125 MG/2 ML VIAL IVPUSH ONE (22:18)
[2018-11-02 22:34] LABS: ALBUMIN 3.2 g/dl (3.4-5.0); ALK PHOS 114 U/L (45-117); ANION GAP 6 MMOL/L (8-16); BILIRUBIN,TOTAL 0.3 mg/dL (0.2-1); CALCIUM 8.8 mg/dL (8.5-10.1); CHLORIDE 105 mmol/L (98-107); CO2 30 mmol/L (21-32); CREATININE 2.6 mg/dL (0.55-1.3); GLUCOSE,RANDOM 109 mg/dL (74-106); MAGNESIUM 2.4 mg/dL (1.8-2.4); N-TERMINAL BNP 1841.8 pg/ml (5-450); POTASSIUM 4.8 mmol/L (3.5-5.1); SGOT/AST 29 U/L (15-37); SGPT/ALT 13 U/L (13-61); SODIUM 141 mmol/L (136-145); TOT PROT 7.3 g/dl (6.4-8.2)
[2018-11-02] MEDS ORDERED: CEFTRIAXONE 1 GM in DEXTROSE 5%-WATER - 100 ML IVPB ONE (22:44)
[2018-11-02] MEDS ORDERED: AZITHROMYCIN 250 MG TABLET PO ONE (22:44)
--- NOTE | 2018-11-02 22:49 | PDOC ---
Documentation entered by Niles Lazaro SCRIBE, acting as scribe for Corrie De Anda MD. Corrie De Anda MD: This documentation has been prepared by the Te[place] garrett Daniel, SCRIBE, under my direction and personally reviewed by me in its entirety. I confirm that the documentation accurately reflects all work, treatment, procedures, and medical decision making performed by me. Attending Attestation - Resident Resident Name: LiPrincess - ED Attending Attestation I have performed the following: I have examined & evaluated the patient, The case was reviewed & discussed with the resident, I agree w/resident's findings & plan - HPI HPI: 11/02/18 22:27 The patient is an 88 year old female with a past medical history of COPD (3-4L home O2), asthma, CVA, gastritis, afib (eliquis, s/p pacemaker), CAD, [place], HTN, HLD, and CHF here today for evaluation of chest pain. The patient reports that she has had 2 weeks of substernal chest pain that is worse with exercise and relieved with rest. She also notes dizziness when walking. Patient reports one month of worsening shortness of breath, dyspnea on exertion, orthopnea, and lower extremity edema. She also notes pain at the site of her pacemaker. Patient denies headache, lightheadedness. Denies fever, chills. Denies nausea, vomiting, diarrhea, abdominal pain. Allergies: NKA Social history: Patient confirms former tobacco use (states she quit 50+ years ago) PCP: Diaz Johnson - Physicial Exam PE: 11/02/18 22:35 GENERAL: Awake, alert, and fully oriented, in no acute distress. Comfortable on nasal canula. HEAD: No signs of trauma EYES: PERRLA, EOMI, sclera anicteric, conjunctiva clear ENT: Auricles normal inspection, hearing grossly normal, nares patent, oropharynx clear without exudates. Moist mucosa NECK: Normal ROM, supple, no lymphadenopathy, JVD, or masses LUNGS: +decreased breath sounds bilaterally. Breath sounds equal, clear to auscultation bilaterally. No wheezes, and no crackles HEART: Regular rate and rhythm, normal S1 and S2, no murmurs, rubs or gallops ABDOMEN: Soft, nontender, normoactive bowel sounds. No guarding, no rebound. No masses EXTREMITIES: + 2+ pitting edema in lower extremities bilaterally up to calves. + mild pitting edema in thighs. Normal range of motion. No clubbing or cyanosis. No cords, erythema, or tenderness NEUROLOGICAL: Cranial nerves II through XII grossly intact. Normal speech, normal gait SKIN: Warm, Dry, normal turgor, no rashes or lesions noted. - Medical Decision Making 11/02/18 22:34 I queried pt's [employer] pacemaker (Model [id number]/Serial [id number]) and she has a dual chamber pacer, that is working normally. She has 7 yrs left on her batteries on the pacer. Pt's labs are returning and she has elevated BNP; Trop is normal. Pt 's CXR looks similar to the last one in May 2018. She will be admitted for COPD exacerbation and CHF exacerbation. She will be treated with abx as well as lasix. Hospitalists paged for the patient. 11/02/18 23:44 BNP 1800; card enzymes otherwise normal. BUN/Cr elevated; Cr of 2.6 is at her upper limit
[2018-11-02] MEDS ORDERED: methylPREDNISolone NA SUCC 125 MG/2 ML VIAL ONE (23:18)
[2018-11-02] MEDS ORDERED: AZITHROMYCIN 250 MG TABLET ONE (23:18)
[2018-11-02] MEDS ORDERED: CEFTRIAXONE 1 GM/50 ML BAG ONE (23:18)
[2018-11-03 00:07] LABS: INR 1.13 (0.83-1.09); PROTHROMBIN TIME (PATIENT) 13.3 SEC (9.7-13.0)
[2018-11-03 00:10] LABS: ACTIVATED PTT 35.6 SECONDS (25.2-36.5)
--- NOTE | 2018-11-03 00:11 | HP ---
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 Pt reports worsening SOb worse with mild exertion (going to bathroom and back) ongoing over the past 2 weeks and longer. Pt has orthopnea, PND, b/l leg swelling chronically. Pt also reports reproducible retrosternal chest pain 10/10 , no nausea, no radiation. Since being in the ED, there has been resolution of the chest pain. Pt was brought in on a NRB maskand in the ED, pt was noted to desat to between 70s and 80s, While in the ED, I noted the pt desating down to 70s off oxygen (on her way to bathroom), went to the 80s on NC, but refused bipap and was sating on venti mask 50% sating at 94%. Pt reports being compliant on her meds, has been on a diuretic with good urine production. Pt reports non productive cough relieved with mentos. No fevers, chills, no hx of sick contacts. Last admission for PNA in May, last [facility] in May 2018 Initial abg-7.30/62.7/190/29.0/16.9 BNP-1841.8 EKG- 66 bpm (AV dual paced with frequent ventricular paced complexes), possible LAD, QTC-438, ECHO 05/2018: LV nl mild jeremie. 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 No: Sleep Apnea Gastrointestinal: Yes: GERD Renal/: Yes: Renal Inusuff - Smoking History Smoking history: Former smoker Have you smoked in the past 12 months: No Aproximately how many cigarettes per day: 0 If you are a former smoker, when did you quit?: 1994 - Alcohol/Substance Use Hx Alcohol Use: No Home Medications - Allergies Allergies/Adverse Reactions: Allergies Allergy/AdvReac Type Severity Reaction Status Date / Time No Known Allergies Allergy Verified 11/03/18 00:03 - Home Medications Home Medications: Ambulatory Orders Amlodipine Besylate [Norvasc -] 5 mg PO DAILY 05/22/17 Apixaban [Eliquis] 2.5 mg PO BID 05/22/17 Calcium Carbonate/Vitamin D3 [Calcium 600+D Softgel] 1 each PO WEEKLY 05/22/17 Fluticasone/Salmeterol [Advair Hfa 230-21 Mcg Inhaler] 12 gm IH DAILY 05/22/17 Furosemide [Lasix -] 20 mg PO DAILY 05/22/17 Lipase/Protease/Amylase [[place] 36,000 Units Capsule] 1 each PO Q8H 05/22/17 Metoprolol Succinate 25 mg PO BID 05/22/17 Omeprazole 40 mg PO DAILY 05/22/17 Simvastatin 40 mg PO DAILY 05/22/17 Tiotropium [place] [Spiriva] 2.5 mcg IH BID 05/22/17 Ferrous Sulfate [Iron] 325 mg PO DAILY 11/03/18 Review of Systems - Review of Systems Constitutional: denies: Chills, Diaphoresis, Fever, Lethargy, Loss of Appetite, Night Sweats Eyes: denies: Blurred Vision HENT: denies: Difficult Swallowing Neck: denies: Stiffness Cardiovascular: reports: Edema, Shortness of Breath. denies: Chest Pain, Palpitations Respiratory: reports: Cough, SOB, SOB on Exertion. denies: Wheezing Gastrointestinal: reports: Abdominal Pain Genitourinary: denies: Burning, Dysuria, Flank Pain Musculoskeletal: denies: Crepitus Neurological: reports: Other (Walks with walker). denies: Change in LOC, Change in Speech, Confusion, Numbness, Parasthesia, Syncope, Tremors Hematology/Lymphatic: denies: Easily Bruised Psychiatric: denies: Altered Sleep Pattern Physical Examination Vital Signs: Vital Signs Temperature 98.2 F 11/02/18 22:00 Pulse Rate 63 11/02/18 22:00 Respiratory Rate 18 11/02/18 22:00 Blood Pressure 150/77 11/02/18 22:00 O2 Sat by Pulse Oximetry (%) 100 11/02/18 22:00 Constitutional: Yes: Mild Distress Eyes: Yes: Conjunctiva Clear, EOM Intact, PERRL HENT: No: Thrush Neck: Yes: Supple Cardiovascular: Yes: Regular Rate and Rhythm, S1, S2 Respiratory: Yes: Diminished, Rales. No: Rhonchi, Wheezes Gastrointestinal: Yes: Normal Bowel Sounds, Soft, Abdomen, Obese Renal/: Yes: CVA Tenderness - Right Edema: Yes Edema: LLE: 2+, RLE: 2+ Peripheral Pulses WNL: No Integumentary: No: Bruising Neurological: Yes: Alert, Oriented. No: Aphasia, Asterixis, Confusion, Facial Droop, Lethargy, Loss of Sensation, Pre-Existing Deficit ...Motor Strength: WNL Psychiatric: Yes: Alert, Oriented Labs: CBC, BMP 11/02/18 21:14 11/02/18 21:53 Imaging - Results Chest X-ray: Image Reviewed Assessment/Plan Ambulatory Orders Amlodipine Besylate [Norvasc -] 5 mg PO DAILY 05/22/17 Apixaban [Eliquis] 2.5 mg PO BID 05/22/17 Calcium Carbonate/Vitamin D3 [Calcium 600+D Softgel] 1 each PO DAILY 05/22/17 Fluticasone/Salmeterol [Advair Hfa 230-21 Mcg Inhaler] 12 gm IH DAILY 05/22/17 Furosemide [Lasix -] 40 mg PO DAILY 05/22/17 Lipase/Protease/Amylase [Clair Dr 36,000 Units Capsule] 1 each PO Q8H 05/22/17 Metoprolol Succinate 25 mg PO BID 05/22/17 Omeprazole 40 mg PO DAILY 05/22/17 Simvastatin 40 mg PO DAILY 05/22/17 Tiotropium [place] [Spiriva] 18 mcg IH BID 05/22/17 Current Medications Albuterol/Ipratropium (Duoneb -) 1 amp NEB Q6H PRN PRN Reason: SHORTNESS OF BREATH Amlodipine Besylate (Norvasc -) 5 mg PO DAILY KES[facility]WN Apixaban (Eliquis -) 2.5 mg PO BID KESHAWN Furosemide (Lasix Injection -) 40 mg IVPUSH DAILY K[facility]WN Furosemide (Lasix Injection -) 20 mg IVPUSH ONCE ONE Stop: 11/03/18 00:57 Azithromycin 500 mg/ Dextrose 250 mls @ 250 mls/hr IVPB DAILY [facility] Methylprednisolone Sodium Succinate (Solu-Medrol -) 60 mg IVPB Q6H [facility] Metoprolol Succinate (Toprol Xl -) 25 mg PO BID [facility] Non-Formulary Medication (Omeprazole [Omeprazole]) 40 mg PO DAILY KESHAWN Non-Formulary Medication (Simvastatin [Simvastatin]) 40 mg PO DAILY [facility] Assessment/Plan: 88 year old female with PMH HTN, HLD, 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 Could have been precipitated by COPD Pt received 40 iv lasix, add 20iv Monitor ins and outs Fluid restriction 1.5L/day Cont 60mg daily CT chest R/O effusions vs infiltrates Echo #Chest pain R/O ACS Reproducible-Costochrondritis initial trops negative, repeat trops ECHO #PAULA on CKD Cr worsening Follows Dr Perkins Avoid nephrotoxic drugs #HTN Cont amlodipine Cont metoprolol Hold ACEI with worsening kidney function #HLD Cont simvastatin Lipid profile #GERD omeprazole #atrial fibrillation on Eliquis and pacer Currently rate controlled Cont metoprolol Eliquis 2.5mg bid Dr Pena solumepatrick 60Q6H Lasix 60mg given Consider 40mg daily azithro Tele bipap Visit type - Emergency Visit Emergency Visit: Yes ED Registration Date: 11/02/18 Care time: The patient presented to the Emergency Department on the above date and was hospitalized for further evaluation of their emergent condition. - New Patient This patient is new to me today: Yes Date on this admission: 11/02/18 - Critical Care Critical Care patient: No
--- NOTE | 2018-11-03 00:11 | PN ---
Teaching Attending Note Name of Resident: Gaby Cadet ATTENDING PHYSICIAN STATEMENT I saw and evaluated the patient. I reviewed the resident's note and discussed the case with the resident. I agree with the resident's findings and plan as documented. SUBJECTIVE: Seen and examined; please refer to resident note for further historical information. Briefly, this is an 88 y/o female presenting to the ER with SOB. She has a known history of CHF and was seen by Dr. Devi's group in 2015 when she was admittted and was found at that time to have a moderately to severely decreased LVEF (is on evidence based BB, CKD prohibits JOSSE/ARB) on 2015 echo; in 2018 repeat echo shows . She presents with the aforementioned SOB with CP, as well. Some dizziness with walking. HTN, COPD, HLD, GERD, Pacemaker 10 sys ROS done and negative aside from HPI PMH, PSH, FH, SH reviewed Home Medications Medication Instructions Recorded Amlodipine Besylate [Norvasc -] 5 mg PO DAILY 05/22/17 Apixaban [Eliquis] 2.5 mg PO BID 05/22/17 Calcium Carbonate/Vitamin D3 1 each PO DAILY 05/22/17 [Calcium 600+D Softgel] Fluticasone/Salmeterol [Advair Hfa 12 gm IH DAILY 05/22/17 230-21 Mcg Inhaler] Furosemide [Lasix -] 40 mg PO DAILY 05/22/17 Lipase/Protease/Amylase [Creon Dr 1 each PO Q8H 05/22/17 36,000 Units Capsule] Metoprolol Succinate 25 mg PO BID 05/22/17 Omeprazole 40 mg PO DAILY 05/22/17 Simvastatin 40 mg PO DAILY 05/22/17 Tiotropium [place] [Spiriva] 18 mcg IH BID 05/22/17 OBJECTIVE: VS, labs, imaging reviewed NAD, AAOx3, resting in bed on ventimask NC AT EOMI PERRLA LE edema +2 sym b/l, Paced on monitor, no gallops/rubs Lungs with scattered crackles and mild wheezes NT ND +BS CN2-12 wnl, no fnd Normal mood, appropriate behavior 08/2015 Echo: Normal LV size with mild LVH, mod-severe decreased LVEF, mod TR, mild MR, DC 03/2015 Myoview: No ischemia, LVEF 51% 05/2018 Echo: Limited study but normal LV size and LVED with no wmas and normal RV function. PASP is at least 55. ASSESSMENT AND PLAN: Patient presents with acute on chronic respiratory failure and respiratory acidosis likely 2/2 COPD and CHF. She will be admitted to the hospital for further treatment and monitoring. 1. Acute on Chronic Hypercapnic Respiratory Failure -Likely at least somewhat multifactorial; fluid overload on CXR (CT pending) with elevated BNP (though in the setting of worse CrCl) with some volume overload on exam (LE edema b/l, crackles, wheezes that may be cardiac vs. COPD) . No recent tobacco exposure. No PFTs on file. She got 40 lasix, steroids, abx in the ER. given no WBC, fever, sputum I feel PNA is less likely. We will give an additional 20 lasix and monitor for diuresis. Continue on IV lasix QD. Monitor renal function carefully. Strict Is and os, QD weights, optimize lytes. No need to repeat echo as done 6 months ago. 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 -Would be helpful to get old CV records; she had severe CHF in 2016 and looks like she has been optimized and had device since. -In terms of COPD, we will do steroids, azithro, and ATC nebs with PRN albuterol. Incentive spirometry and pulm consult. -BiPap ordered but patient refused; will counseling services manager 2. Acute decompensation of CHF -Discussed above 3. COPD Exacerbation -Discussed above 4. PAULA on CKD vs. Worsening CKD -CrCl worse than last admit but she does have reasons for worsening CKD overall ; would be helpful to have outpatient trend. -Calculate Feurea, QD BMP, consult nephrology. Given #1 diuresed. Followup AM BNP; if significantly worsens may have to hold off on further diuresis 5. CAD s/p WI -Continue BB 6. P-Atrial fibrillation (on AC w/ elevated CV score) -Continue Metoprolol and Eliquis. 7. HTN -Continue amlodipine 8. HLD -Continue Simvastatin 9. GERD -Continue PPI DVT px: eliquis
[2018-11-03] MEDS ORDERED: FUROSEMIDE 40 MG/4 ML INJECTABLE VIAL IVPUSH ONE (00:56)
[2018-11-03] MEDS ORDERED: ALBUTEROL SO4 2.5/IPRATROPIUM 0.5 INH SOL 3 ML VIAL.NEB. NEB PRN (00:58)
[2018-11-03] MEDS ORDERED: APIXABAN 5 MG TABLET PO ONE ×2 (01:49→08:02)
[2018-11-03] MEDS ORDERED: FUROSEMIDE 40 MG/4 ML INJECTABLE VIAL ONE ×2 (01:50→08:03)
[2018-11-03] MEDS ORDERED: TOPIRAMATE 25 MG TABLET (FP) ONE (01:50)
[2018-11-03 01:56] LABS: EPI CELLS 1.4 /HPF (0-5/HPF); HYALINE CASTS 0 /lpf (0-8); URINE APPEARANCE CLEAR; URINE BACTERIA 7.1 /hpf (NEGATIVE); URINE BILIRUBIN NEGATIVE (NEGATIVE); URINE COLOR YELLOW; URINE GLUCOSE (UA) NEGATIVE (NEGATIVE); URINE KETONE NEGATIVE (NEGATIVE); URINE LEUK ESTERASE NEGATIVE (NEGATIVE); URINE NITRITE NEGATIVE (NEGATIVE); URINE PROTEIN 2+ (NEGATIVE); URINE RBC 1 /hpf (0-4); URINE UROBILINOGEN 0.2 mg/dL (0.2-1.0); URINE WBC 1 /hpf (0-5)
[2018-11-03] MEDS: APIXABAN 2.5 MG TABLET PO SCH ×3 (01:59→23:02)
[2018-11-03] MEDS: metoPROLOL SUCCINATE 25 MG TAB.SR.24H (FP) PO SCH ×3 (01:59→23:02)
[2018-11-03] MEDS ORDERED: methylPREDNISolone NA SUCC 40 MG/1 ML VIAL ONE ×4 (03:20→21:35)
[2018-11-03] MEDS: methylPREDNISolone NA SUCC 40 MG/1 ML VIAL IVPB SCH ×4 (03:33→21:40)
[2018-11-03 06:56] LABS: BASO % 0.5 % (0-2.0); EOS % 0.2 % (0-4.5); HEMATOCRIT 38.3 % (32.4-45.2); HEMOGLOBIN 12.2 GM/dL (10.7-15.3); LYMPH % 5.3 % (8-40); MCHC 31.8 g/dl (32.0-36.0); MEAN PLT VOLUME 8.3 fl (7.5-11.1); MONO % 0.7 % (3.8-10.2); NEUT % 93.3 % (42.8-82.8); PLATELET COUNT 235 K/MM3 (134-434); RBC 4.35 M/mm3 (3.60-5.2); RDW 14.9 % (11.6-15.6); WHITE BLOOD COUNT 8.3 K/mm3 (4.0-10.0)
[2018-11-03 07:41] LABS: ALBUMIN 3.1 g/dl (3.4-5.0); ALK PHOS 106 U/L (45-117); ANION GAP 5 MMOL/L (8-16); BILIRUBIN,TOTAL 0.3 mg/dL (0.2-1); BLOOD UREA NITROGEN 40.4 mg/dL (7-18); CHLORIDE 102 mmol/L (98-107); CHOLESTEROL 115 mg/dL (50-200); CO2 33 mmol/L (21-32); CREATININE 2.5 mg/dL (0.55-1.3); GLUCOSE,RANDOM 151 mg/dL (74-106); HDL CHOLESTEROL 41 mg/dL (40-60); MAGNESIUM 2.3 mg/dL (1.8-2.4); PHOSPHOROUS 4.6 mg/dL (2.5-4.9); POTASSIUM 4.7 mmol/L (3.5-5.1); SGOT/AST 28 U/L (15-37); SGPT/ALT 13 U/L (13-61); SODIUM 140 mmol/L (136-145); TOT PROT 7.2 g/dl (6.4-8.2); TRIGLYCERIDES 73 mg/dL (0-150)
[2018-11-03] MEDS ORDERED: amLODIPine BESYLATE 5 MG TABLET (FP) ONE (08:02)
[2018-11-03] MEDS ORDERED: PANTOPRAZOLE 40 MG TABLET (FP) ONE (08:02)
[2018-11-03] MEDS ORDERED: AZITHROMYCIN IVPB 500 MG/250 ML BAG IVPB ONE (08:03)
[2018-11-03] MEDS: amLODIPine BESYLATE 5 MG TABLET (FP) PO SCH (09:04)
[2018-11-03] MEDS: PANTOPRAZOLE 40 MG TABLET (FP) PO SCH (09:05)
--- NOTE | 2018-11-03 09:34 | EKG ---
Test Reason : Blood Pressure : / mmHG Vent. Rate : 066 BPM Atrial Rate : 065 BPM P-R Int : 164 ms QRS Dur : 092 ms QT Int : 418 ms P-R-T Axes : 076 -58 007 degrees QTc Int : 438 ms AV dual-paced rhythm WITH FREQUENT ventricular-paced complexes Biventricular pacemaker detected ABNORMAL ECG WHEN COMPARED WITH ECG OF 18-MAY-2018 23:27, VENT. RATE HAS DECREASED BY 7 BPM Confirmed by MELINA STATON, CLAUDIA ([id number]) on 11/03/2018 9:34:11 AM Referred By: Confirmed By:CLAUDIA SUMMERS MD
[2018-11-03] MEDS ORDERED: AZITHROMYCIN IVPB 500 MG in DEXTROSE 5%-WATER - 250 ML IVPB SCH (10:00)
[2018-11-03] MEDS ORDERED: FUROSEMIDE 40 MG/4 ML INJECTABLE VIAL IVPUSH SCH ×2 (10:00)
[2018-11-03 11:03] LABS: ANISOCYTOSIS 2+; MACROCYTOSIS 1+; PLATELET ESTIMATE NORMAL; TARGET CELLS 1+
--- NOTE | 2018-11-03 13:59 | PN ---
Physical Exam: SUBJECTIVE: Patient seen and examined OBJECTIVE: Vital Signs Period Temp Pulse Resp BP Sys/Perez Pulse Ox Last 24 Hr 97.7 F-98.2 F 63-70 16-19 132-164/54-77 72-100 GENERAL: The patient is awake, alert, and fully oriented, in no acute distress. HEAD: Normal with no signs of trauma. EYES: PERRL, extraocular movements intact, sclera anicteric, conjunctiva clear. No ptosis. ENT: Ears normal, nares patent, oropharynx clear without exudates, moist mucous membranes. NECK: Trachea midline, full range of motion, supple. LUNGS: Breath sounds equal, clear to auscultation bilaterally, no wheezes, no crackles, no accessory muscle use. HEART: Regular rate and rhythm, S1, S2 without murmur, rub or gallop. ABDOMEN: Soft, nontender, nondistended, normoactive bowel sounds, no guarding, no rebound, no hepatosplenomegaly, no masses. EXTREMITIES: 2+ pulses, warm, well-perfused, no edema. NEUROLOGICAL: Cranial nerves II through XII grossly intact. Normal speech, gait not observed. PSYCH: Normal mood, normal affect. SKIN: Warm, dry, normal turgor, no rashes or lesions noted Laboratory Results - last 24 hr 11/02/18 11/02/18 11/02/18 21:14 21:14 21:14 WBC 8.5 RBC 4.10 Hgb 11.4 Hct 35.2 MCV 85.9 MCH 27.9 MCHC 32.5 RDW 15.6 Plt Count 257 MPV 8.4 Absolute Neuts (auto) 6.0 Neutrophils % 70.8 Neutrophils % (Manual) Band Neutrophils % Lymphocytes % 16.4 Lymphocytes % (Manual) Monocytes % 8.4 Monocytes % (Manual) Eosinophils % 2.9 Eosinophils % (Manual) Basophils % 1.5 Basophils % (Manual) Myelocytes % (Man) Promyelocytes % (Man) Blast Cells % (Manual) Nucleated RBC % 0 Metamyelocytes Hypochromia Platelet Estimate Polychromasia Poikilocytosis Anisocytosis Microcytosis Macrocytosis Spherocytes Target Cells Stomatocytes Acanthocytes (Spur) PT with INR Cancelled INR Cancelled PTT (Actin FS) Cancelled Anticoagulation Therapy Puncture Site ABG pH ABG pCO2 at Pt Temp ABG pO2 at Pt Temp ABG HCO3 ABG O2 Sat (Measured) ABG O2 Content ABG Base Excess Ankit Test Carboxyhemoglobin Methemoglobin O2 Delivery Device Oxygen Flow Rate Vent Mode Vent Rate Mechanical Rate Pressure Support Vent Sodium Cancelled Potassium Cancelled Chloride Cancelled Carbon Dioxide Cancelled Anion Gap Cancelled BUN Cancelled Creatinine Cancelled Est GFR (CKD-EPI)AfAm Cancelled Est GFR (CKD-EPI)NonAf Cancelled Random Glucose Cancelled Calcium Cancelled Phosphorus Magnesium Cancelled Total Bilirubin Cancelled AST Cancelled ALT Cancelled Alkaline Phosphatase Cancelled Troponin I Cancelled B-Natriuretic Peptide Cancelled Total Protein Cancelled Albumin Cancelled Triglycerides Cholesterol Total LDL Cholesterol HDL Cholesterol Urine Color Urine Appearance Urine pH Ur Specific [place] Urine Protein Urine Glucose (UA) Urine Ketones Urine Blood Urine Nitrite Urine Bilirubin Urine Urobilinogen Ur Leukocyte Esterase Urine WBC (Auto) Urine RBC (Auto) Urine Casts (Auto) U Epithel Cells (Auto) Urine Bacteria (Auto) Ur Random Creatinine Ur Random Sodium Ur Random Potassium Ur Random Chloride 11/02/18 11/02/18 11/02/18 21:53 21:53 21:53 WBC RBC Hgb Hct MCV MCH MCHC RDW Plt Count MPV Absolute Neuts (auto) Neutrophils % Neutrophils % (Manual) Band Neutrophils % Lymphocytes % Lymphocytes % (Manual) Monocytes % Monocytes % (Manual) Eosinophils % Eosinophils % (Manual) Basophils % Basophils % (Manual) Myelocytes % (Man) Promyelocytes % (Man) Blast Cells % (Manual) Nucleated RBC % Metamyelocytes Hypochromia Platelet Estimate Polychromasia Poikilocytosis Anisocytosis Microcytosis Macrocytosis Spherocytes Target Cells Stomatocytes Acanthocytes (Spur) PT with INR INR PTT (Actin FS) Anticoagulation Therapy No Result Required. Puncture Site No Result Required. ABG pH 7.30 L ABG pCO2 at Pt Temp 62.7 H ABG pO2 at Pt Temp 190 H ABG HCO3 29.9 H ABG O2 Sat (Measured) 99.6 H ABG O2 Content 16.9 ABG Base Excess 2.6 H Ankit Test No Result Required. Carboxyhemoglobin 1.2 Methemoglobin 0.3 O2 Delivery Device No Result Required. Oxygen Flow Rate No Result Required. Vent Mode No Result Required. Vent Rate No Result Required. Mechanical Rate No Result Required. Pressure Support Vent No Result Required. Sodium 141 Potassium 4.8 Chloride 105 Carbon Dioxide 30 Anion Gap 6 L BUN 39.0 H Creatinine 2.6 H Est GFR (CKD-EPI)AfAm 18.61 Est GFR (CKD-EPI)NonAf 16.06 Random Glucose 109 H Calcium 8.8 Phosphorus Magnesium 2.4 Total Bilirubin 0.3 AST 29 ALT 13 Alkaline Phosphatase 114 Troponin I < 0.02 B-Natriuretic Peptide 1841.8 H Total Protein 7.3 Albumin 3.2 L Triglycerides Cholesterol Total LDL Cholesterol HDL Cholesterol Urine Color Urine Appearance Urine pH Ur Specific [place] Urine Protein Urine Glucose (UA) Urine Ketones Urine Blood Urine Nitrite Urine Bilirubin Urine Urobilinogen Ur Leukocyte Esterase Urine WBC (Auto) Urine RBC (Auto) Urine Casts (Auto) U Epithel Cells (Auto) Urine Bacteria (Auto) Ur Random Creatinine Ur Random Sodium Ur Random Potassium Ur Random Chloride 11/02/18 11/03/18 11/03/18 22:30 01:35 01:35 WBC RBC Hgb Hct MCV MCH MCHC RDW Plt Count MPV Absolute Neuts (auto) Neutrophils % Neutrophils % (Manual) Band Neutrophils % Lymphocytes % Lymphocytes % (Manual) Monocytes % Monocytes % (Manual) Eosinophils % Eosinophils % (Manual) Basophils % Basophils % (Manual) Myelocytes % (Man) Promyelocytes % (Man) Blast Cells % (Manual) Nucleated RBC % Metamyelocytes Hypochromia Platelet Estimate Polychromasia Poikilocytosis Anisocytosis Microcytosis Macrocytosis Spherocytes Target Cells Stomatocytes Acanthocytes (Spur) PT with INR 13.30 H INR 1.13 H PTT (Actin FS) 35.6 Anticoagulation Therapy Puncture Site ABG pH ABG pCO2 at Pt Temp ABG pO2 at Pt Temp ABG HCO3 ABG O2 Sat (Measured) ABG O2 Content ABG Base Excess Ankit Test Carboxyhemoglobin Methemoglobin O2 Delivery Device Oxygen Flow Rate Vent Mode Vent Rate Mechanical Rate Pressure Support Vent Sodium Potassium Chloride Carbon Dioxide Anion Gap BUN Creatinine Est GFR (CKD-EPI)AfAm Est GFR (CKD-EPI)NonAf Random Glucose Calcium Phosphorus Magnesium Total Bilirubin AST ALT Alkaline Phosphatase Troponin I B-Natriuretic Peptide Total Protein Albumin Triglycerides Cholesterol Total LDL Cholesterol HDL Cholesterol Urine Color Yellow Urine Appearance Clear Urine pH 6.0 Ur Specific [place] 1.011 Urine Protein 2+ H Urine Glucose (UA) Negative Urine Ketones Negative Urine Blood Negative Urine Nitrite Negative Urine Bilirubin Negative Urine Urobilinogen 0.2 Ur Leukocyte Esterase Negative Urine WBC (Auto) 1 Urine RBC (Auto) 1 Urine Casts (Auto) 0 U Epithel Cells (Auto) 1.4 Urine Bacteria (Auto) 7.1 Ur Random Creatinine 66.0 Ur Random Sodium 37 L Ur Random Potassium 23.0 L Ur Random Chloride 26 L 11/03/18 11/03/18 11/03/18 01:35 06:30 06:30 WBC 8.3 RBC 4.35 Hgb 12.2 Hct 38.3 MCV 88.0 MCH 28.0 MCHC 31.8 L RDW 14.9 Plt Count 235 MPV 8.3 Absolute Neuts (auto) 7.7 Neutrophils % 93.3 H D Neutrophils % (Manual) 93.1 H Band Neutrophils % 2.0 Lymphocytes % 5.3 L D Lymphocytes % (Manual) 3.9 L Monocytes % 0.7 L D Monocytes % (Manual) 1 L Eosinophils % 0.2 D Eosinophils % (Manual) 0.0 Basophils % 0.5 Basophils % (Manual) 0.0 Myelocytes % (Man) 0 Promyelocytes % (Man) 0 Blast Cells % (Manual) 0 Nucleated RBC % 0 Metamyelocytes 0 Hypochromia 0 Platelet Estimate Normal Polychromasia 1+ Poikilocytosis 1+ Anisocytosis 2+ Microcytosis 1+ Macrocytosis 1+ Spherocytes 1+ Target Cells 1+ Stomatocytes 1+ Acanthocytes (Spur) 1+ PT with INR INR PTT (Actin FS) Anticoagulation Therapy Puncture Site ABG pH ABG pCO2 at Pt Temp ABG pO2 at Pt Temp ABG HCO3 ABG O2 Sat (Measured) ABG O2 Content ABG Base Excess Ankit Test Carboxyhemoglobin Methemoglobin O2 Delivery Device Oxygen Flow Rate Vent Mode Vent Rate Mechanical Rate Pressure Support Vent Sodium 140 Potassium 4.7 Chloride 102 Carbon Dioxide 33 H Anion Gap 5 L BUN 40.4 H Creatinine 2.5 H Est GFR (CKD-EPI)AfAm 19.51 Est GFR (CKD-EPI)NonAf 16.84 Random Glucose 151 H Calcium 9.0 Phosphorus 4.6 Magnesium 2.3 Total Bilirubin 0.3 AST 28 ALT 13 Alkaline Phosphatase 106 Troponin I 0.02 < 0.02 B-Natriuretic Peptide Total Protein 7.2 Albumin 3.1 L Triglycerides 73 Cholesterol 115 Total LDL Cholesterol 60 HDL Cholesterol 41 Urine Color Urine Appearance Urine pH Ur Specific [place] Urine Protein Urine Glucose (UA) Urine Ketones Urine Blood Urine Nitrite Urine Bilirubin Urine Urobilinogen Ur Leukocyte Esterase Urine WBC (Auto) Urine RBC (Auto) Urine Casts (Auto) U Epithel Cells (Auto) Urine Bacteria (Auto) Ur Random Creatinine Ur Random Sodium Ur Random Potassium Ur Random Chloride Active Medications Generic Name Dose Route Start Last Admin Trade Name Freq PRN Reason Stop Dose Admin Albuterol/Ipratropium 1 amp 11/03/18 00:58 Duoneb - NEB Q6H PRN SHORTNESS OF BREATH Amlodipine Besylate 5 mg 11/03/18 10:00 11/03/18 09:04 Norvasc - PO 5 mg DAILY KESHAWN Administration Apixaban 2.5 mg 11/03/18 01:15 11/03/18 09:04 Eliquis - PO 2.5 mg BID KESHAWN Administration Atorvastatin Calcium 20 mg 11/03/18 22:00 Lipitor - PO HS KESHAWN Furosemide 60 mg 11/03/18 10:00 11/03/18 09:04 Lasix Injection - IVPUSH 60 mg DAILY KESHAWN Administration Azithromycin 500 mg/ Dextrose 250 mls @ 250 mls/hr 11/03/18 10:00 11/03/18 09 :07 IVPB 250 mls/hr DAILY KESHAWN Administration Insulin Aspart 1 vial 11/03/18 16:30 Novolog Vial Sliding Scale - SQ ACHS KESHAWN Protocol Methylprednisolone Sodium Succinate 60 mg 11/03/18 03:00 11/03/18 09:04 Solu-Medrol - IVPB 60 mg Q6H-IV KESHAWN Administration Metoprolol Succinate 25 mg 11/03/18 01:15 11/03/18 09:06 Toprol Xl - PO 25 mg BID KESHAWN Administration Pantoprazole Sodium 40 mg 11/03/18 10:00 11/03/18 09:05 Protonix - PO 40 mg DAILY KESHAWN Administration ASSESSMENT/PLAN: Subjective - Review of Systems Pulmonary: Dyspnea, Cough Cardiovascular: Orthopnea, Paroxysmal Noc. Dyspnea Other Systems: Extr: B/l 1+ LE edema
--- NOTE | 2018-11-03 14:09 | PN ---
Physical Exam: SUBJECTIVE: Patient examined at bedside today. Continues to c/o SOB with decreased chest pain. Pt says she is lightheaded sometimes when trying to get out of bed. She is satting well with use of venti mask. Remains afebrile. PE significant for b/l chest congestion with mild cough which she states is improving. OBJECTIVE: Vital Signs Period Temp Pulse Resp BP Sys/Perez Pulse Ox Last 24 Hr 97.7 F-98.2 F 63-70 16-19 132-164/54-77 72-100 GENERAL: AAOx3. NAD HEENT: No lymphadenopathy. Normocephalic atraumatic. LUNGS: B/l chest congestion. No use of accessory muscles of breathing HEART: Regular rate and rhythm, S1, S2 heard without murmur, rub or gallop. ABDOMEN: Soft, NTND, + bowel sounds, no masses. EXTREMITIES: 2+ pulses, warm, well-perfused, 1+ LE edema SKIN: No rashes/ scars/ discolorations noted Laboratory Results - last 24 hr Laboratory Last Values WBC 8.3 K/mm3 (4.0-10.0) 11/03/18 06:30 RBC 4.35 M/mm3 (3.60-5.2) 11/03/18 06:30 Hgb 12.2 GM/dL (10.7-15.3) 11/03/18 06:30 Hct 38.3 % (32.4-45.2) 11/03/18 06:30 MCV 88.0 fl (80-96) 11/03/18 06:30 MCH 28.0 pg (25.7-33.7) 11/03/18 06:30 MCHC 31.8 g/dl (32.0-36.0) L 11/03/18 06:30 RDW 14.9 % (11.6-15.6) 11/03/18 06:30 Plt Count 235 K/MM3 (134-434) 11/03/18 06:30 MPV 8.3 fl (7.5-11.1) 11/03/18 06:30 Absolute Neuts (auto) 7.7 K/mm3 (1.5-8.0) 11/03/18 06:30 Neutrophils % 93.3 % (42.8-82.8) H D 11/03/18 06:30 Neutrophils % (Manual) 93.1 % (42.8-82.8) H 11/03/18 06:30 Band Neutrophils % 2.0 % 11/03/18 06:30 Lymphocytes % 5.3 % (8-40) L D 11/03/18 06:30 Lymphocytes % (Manual) 3.9 % (8-40) L 11/03/18 06:30 Monocytes % 0.7 % (3.8-10.2) L D 11/03/18 06:30 Monocytes % (Manual) 1 % (3.8-10.2) L 11/03/18 06:30 Eosinophils % 0.2 % (0-4.5) D 11/03/18 06:30 Eosinophils % (Manual) 0.0 % (0-4.5) 11/03/18 06:30 Basophils % 0.5 % (0-2.0) 11/03/18 06:30 Basophils % (Manual) 0.0 % (0-2.0) 11/03/18 06:30 Myelocytes % (Man) 0 % (0-2) 11/03/18 06:30 Promyelocytes % (Man) 0 % (0-2) 11/03/18 06:30 Blast Cells % (Manual) 0 % (0-0) 11/03/18 06:30 Nucleated RBC % 0 % (0-0) 11/03/18 06:30 Metamyelocytes 0 % (0-2) 11/03/18 06:30 Hypochromia 0 11/03/18 06:30 Platelet Estimate Normal 11/03/18 06:30 Polychromasia 1+ 11/03/18 06:30 Poikilocytosis 1+ 11/03/18 06:30 Anisocytosis 2+ 11/03/18 06:30 Microcytosis 1+ 11/03/18 06:30 Macrocytosis 1+ 11/03/18 06:30 Spherocytes 1+ 11/03/18 06:30 Target Cells 1+ 11/03/18 06:30 Stomatocytes 1+ 11/03/18 06:30 Acanthocytes (Spur) 1+ 11/03/18 06:30 PT with INR 13.30 SEC (9.7-13.0) H 11/02/18 22:30 INR 1.13 (0.83-1.09) H 11/02/18 22:30 PTT (Actin FS) 35.6 SECONDS (25.2-36.5) 11/02/18 22:30 Anticoagulation Therapy No Result Required. 11/02/18 21:53 Puncture Site No Result Required. 11/02/18 21:53 ABG pH 7.30 (7.35-7.45) L 11/02/18 21:53 ABG pCO2 at Pt Temp 62.7 mmHg (35-45) H 11/02/18 21:53 ABG pO2 at Pt Temp 190 mmHg (80-105) H 11/02/18 21:53 ABG HCO3 29.9 mmol/L (22-27) H 11/02/18 21:53 ABG O2 Sat (Measured) 99.6 % (95-98) H 11/02/18 21:53 ABG O2 Content 16.9 % vol (15-22) 11/02/18 21:53 ABG Base Excess 2.6 meq/l (-2-2) H 11/02/18 21:53 Ankit Test No Result Required. 11/02/18 21:53 Carboxyhemoglobin 1.2 % (0-2) 11/02/18 21:53 Methemoglobin 0.3 % (0-2) 11/02/18 21:53 O2 Delivery Device No Result Required. 11/02/18 21:53 Oxygen Flow Rate No Result Required. 11/02/18 21:53 Vent Mode No Result Required. 11/02/18 21:53 Vent Rate No Result Required. 11/02/18 21:53 Mechanical Rate No Result Required. 11/02/18 21:53 Pressure Support Vent No Result Required. 11/02/18 21:53 Sodium 140 mmol/L (136-145) 11/03/18 06:30 Potassium 4.7 mmol/L (3.5-5.1) 11/03/18 06:30 Chloride 102 mmol/L (98-107) 11/03/18 06:30 Carbon Dioxide 33 mmol/L (21-32) H 11/03/18 06:30 Anion Gap 5 MMOL/L (8-16) L 11/03/18 06:30 BUN 40.4 mg/dL (7-18) H 11/03/18 06:30 Creatinine 2.5 mg/dL (0.55-1.3) H 11/03/18 06:30 Est GFR (CKD-EPI)AfAm 19.51 11/03/18 06:30 Est GFR (CKD-EPI)NonAf 16.84 11/03/18 06:30 Random Glucose 151 mg/dL (74-106) H 11/03/18 06:30 Calcium 9.0 mg/dL (8.5-10.1) 11/03/18 06:30 Phosphorus 4.6 mg/dL (2.5-4.9) 11/03/18 06:30 Magnesium 2.3 mg/dL (1.8-2.4) 11/03/18 06:30 Total Bilirubin 0.3 mg/dL (0.2-1) 11/03/18 06:30 AST 28 U/L (15-37) 11/03/18 06:30 ALT 13 U/L (13-61) 11/03/18 06:30 Alkaline Phosphatase 106 U/L (45-117) 11/03/18 06:30 Troponin I < 0.02 ng/ml (0.00-0.05) 11/03/18 06:30 B-Natriuretic Peptide 1841.8 pg/ml (5-450) H 11/02/18 21:53 Total Protein 7.2 g/dl (6.4-8.2) 11/03/18 06:30 Albumin 3.1 g/dl (3.4-5.0) L 11/03/18 06:30 Triglycerides 73 mg/dL (0-150) 11/03/18 06:30 Cholesterol 115 mg/dL (50-200) 11/03/18 06:30 Total LDL Cholesterol 60 mg/dL (5-100) 11/03/18 06:30 HDL Cholesterol 41 mg/dL (40-60) 11/03/18 06:30 Urine Color Yellow 11/03/18 01:35 Urine Appearance Clear 11/03/18 01:35 Urine pH 6.0 (5.0-8.0) 11/03/18 01:35 Ur Specific [place] 1.011 (1.010-1.035) 11/03/18 01:35 Urine Protein 2+ (NEGATIVE) H 11/03/18 01:35 Urine Glucose (UA) Negative (NEGATIVE) 11/03/18 01:35 Urine Ketones Negative (NEGATIVE) 11/03/18 01:35 Urine Blood Negative (NEGATIVE) 11/03/18 01:35 Urine Nitrite Negative (NEGATIVE) 11/03/18 01:35 Urine Bilirubin Negative (NEGATIVE) 11/03/18 01:35 Urine Urobilinogen 0.2 mg/dL (0.2-1.0) 11/03/18 01:35 Ur Leukocyte Esterase Negative (NEGATIVE) 11/03/18 01:35 Urine WBC (Auto) 1 /hpf (0-5) 11/03/18 01:35 Urine RBC (Auto) 1 /hpf (0-4) 11/03/18 01:35 Urine Casts (Auto) 0 /lpf (0-8) 11/03/18 01:35 U Epithel Cells (Auto) 1.4 /HPF (0-5/HPF) 11/03/18 01:35 Urine Bacteria (Auto) 7.1 /hpf (NEGATIVE) 11/03/18 01:35 Ur Random Creatinine 66.0 mg/dL (30-150) 11/03/18 01:35 Ur Random Sodium 37 MMOL/L (40-220) L 11/03/18 01:35 Ur Random Potassium 23.0 MMOL/L (25-125) L 11/03/18 01:35 Ur Random Chloride 26 MMOL/L (110-250) L 11/03/18 01:35 Active Medications Generic Name Dose Route Start Last Admin Trade Name Freq PRN Reason Stop Dose Admin Albuterol/Ipratropium 1 amp 11/03/18 00:58 Duoneb - NEB Q6H PRN SHORTNESS OF BREATH Amlodipine Besylate 5 mg 11/03/18 10:00 11/03/18 09:04 Norvasc - PO 5 mg DAILY KESHAWN Administration Apixaban 2.5 mg 11/03/18 01:15 11/03/18 09:04 Eliquis - PO 2.5 mg BID KESHAWN Administration Atorvastatin Calcium 20 mg 11/03/18 22:00 Lipitor - PO HS KESHAWN Furosemide 60 mg 11/03/18 10:00 11/03/18 09:04 Lasix Injection - IVPUSH 60 mg DAILY KESHAWN Administration Azithromycin 500 mg/ Dextrose 250 mls @ 250 mls/hr 11/03/18 10:00 11/03/18 09 :07 IVPB 250 mls/hr DAILY KESHAWN Administration Insulin Aspart 1 vial 11/03/18 16:30 Novolog Vial Sliding Scale - SQ ACHS KESHAWN Protocol Methylprednisolone Sodium Succinate 60 mg 11/03/18 03:00 11/03/18 09:04 Solu-Medrol - IVPB 60 mg Q6H-IV KESHAWN Administration Metoprolol Succinate 25 mg 11/03/18 01:15 11/03/18 09:06 Toprol Xl - PO 25 mg BID KESHAWN Administration Pantoprazole Sodium 40 mg 11/03/18 10:00 11/03/18 09:05 Protonix - PO 40 mg DAILY KESHAWN Administration Imaging: Chest CT 11/03: Emphysematous changes as described above. Some degree of ILD is suspected. Trace pleural effusions bilaterally. Cardiomegaly. Prominence of the pulmonary artery trunk suggesting the possibility of pulmonary artery hypertension, correlate with echo. ASSESSMENT/PLAN: 88 y.o. F w/ PMH HTN, HLD, COPD/ asthma on home O2 (3-4L), GERD, afib on Eloquis , double lead pacemaker presenting with acute on chronic respiratory failure and resp acidosis likely 2/2 to COPD & CHF. Elevated BNP (1841) on admission with severe cough and chest congestion.Patient admitted to medicine team for medical management. 1. Acute on Chronic Hypercapnic Respiratory Failure -CXR 11/02: Congestive changes, rt pl effusion, base atelectic changes; large heart, degen changes -Chest CT: c/w emphysematous changes & likely ILD -S/p 40 Lasix, steroids, abx in ER -C/w Lasix 60 QD -Monitor renal labs -Incentive spirometer q15 min 2. COPD Exacerbation -Methylprednisolone 60q6h -Azithromycin 500 -Duoneb 4. PAULA on CKD vs. Worsening CKD -Trend renal labs, cr clearance -Daily BMP -Nephro Dr. Barrios consulted -F/u AM BNP 5. CAD s/p WA -Continue metoprolol 6. P-Atrial fibrillation on AC -C/w Metoprolol and Eliquis. 7. HTN -C/w amlodipine 8. HLD -Continue Simvastatin 9. GERD -C/w Protonix 40 DVT px: apixaban 2.5 PO BID Visit type - Emergency Visit Emergency Visit: No - New Patient This patient is new to [facility] today: No - Critical Care Critical Care patient: No
--- NOTE | 2018-11-03 14:35 | CONSULT ---
Consult Consult Specialty:: Nephrology Reason for Consultation:: CKD - History of Present Illness Chief Complaint: shortness of breath History of Present Illness: Pt is an 88 year old female with pmhx of HTN, HLD, COPD, asthma, gerd, a-fib and asthma who presents to the ER with shortness of breath. She has increase shortness of breath with minimal exertion. I was called to evaluate her for elevated creatinine. She does have history of CKD. She also had chest pain. She feels that the breathing is a little better today however she has not ambulated. She denies dysuria or hematuria. She denies fevers or chills. She does complain of lower ext edema. She denies nsaid use. Pt was on 20 mg of lasix at home. 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: Yes: CVA Cardio/Vascular: Yes: AFIB, CAD, CHF Pulmonary: Yes: COPD, O2 Dependent, Pneumonia Gastrointestinal: Yes: GERD Renal/: Yes: Renal Inusuff - Alcohol/Substance Use Hx Alcohol Use: No - Smoking History Smoking history: Former smoker Have you smoked in the past 12 months: No Aproximately how many cigarettes per day: 0 If you are a former smoker, when did you quit?: 1994 Home Medications - Allergies Allergies/Adverse Reactions: Allergies Allergy/AdvReac Type Severity Reaction Status Date / Time No Known Allergies Allergy Verified 11/03/18 00:03 - Home Medications Home Medications: Ambulatory Orders Amlodipine Besylate [Norvasc -] 5 mg PO DAILY 05/22/17 Apixaban [Eliquis] 2.5 mg PO BID 05/22/17 Calcium Carbonate/Vitamin D3 [Calcium 600+D Softgel] 1 each PO WEEKLY 05/22/17 Fluticasone/Salmeterol [Advair Hfa 230-21 Mcg Inhaler] 12 gm IH DAILY 05/22/17 Furosemide [Lasix -] 20 mg PO DAILY 05/22/17 Lipase/Protease/Amylase [Clair Mcgee 36,000 Units Capsule] 1 each PO Q8H 05/22/17 Metoprolol Succinate 25 mg PO BID 05/22/17 Omeprazole 40 mg PO DAILY 05/22/17 Simvastatin 40 mg PO DAILY 05/22/17 Tiotropium [place] [Spiriva] 2.5 mcg IH BID 05/22/17 Ferrous Sulfate [Iron] 325 mg PO DAILY 11/03/18 Family Disease History - Family Disease History Family History: Denies Review of Systems - Review of Systems Constitutional: reports: Malaise Eyes: reports: No Symptoms HENT: reports: No Symptoms Neck: reports: No Symptoms Cardiovascular: reports: No Symptoms, Edema, Shortness of Breath Respiratory: reports: SOB, SOB on Exertion Gastrointestinal: reports: No Symptoms Genitourinary: reports: No Symptoms Musculoskeletal: reports: No Symptoms Integumentary: reports: No Symptoms Neurological: reports: No Symptoms Endocrine: reports: No Symptoms Hematology/Lymphatic: reports: No Symptoms Psychiatric: reports: No Symptoms Physical Exam Vital Signs: Vital Signs Temperature 98.1 F 11/03/18 08:39 Pulse Rate 68 11/03/18 08:39 Respiratory Rate 11/03/18 08:39 Blood Pressure 164/77 11/03/18 08:39 O2 Sat by Pulse Oximetry (%) 93 L 11/03/18 08:39 Constitutional: Yes: Calm Eyes: Yes: Conjunctiva Clear HENT: Yes: Atraumatic Cardiovascular: Yes: S1, S2 Respiratory: Yes: On Nasal O2, Rhonchi Gastrointestinal: Yes: Soft Renal/: Yes: WNL Musculoskeletal: Yes: WNL Edema: Yes Edema: LLE: 1+, RLE: 1+ Neurological: Yes: Oriented Psychiatric: Yes: Oriented Labs: CBC, BMP 11/03/18 06:30 11/03/18 06:30 Laboratory Tests 08/16/15 08/17/15 05/22/17 06:35 07:00 21:50 WBC Hgb Creatinine 2.4 H 2.4 H 2.0 H Urine Protein Urine Blood 12/11/17 05/18/18 05/19/18 16:57 13:35 06:00 WBC Hgb Creatinine 1.9 H 1.9 H 2.3 H Urine Protein Urine Blood 05/20/18 05/21/18 11/02/18 06:30 06:00 21:53 WBC Hgb Creatinine 2.3 H 2.2 H 2.6 H Urine Protein Urine Blood 11/03/18 11/03/18 11/03/18 01:35 06:30 06:30 WBC 8.3 Hgb 12.2 Creatinine 2.5 H Urine Protein 2+ H Urine Blood Negative Imaging - Results Chest X-ray: Report Reviewed Assessment/Plan Current Medications Generic Name Dose Route Start Last Admin Trade Name Gee PRN Reason Stop Dose Admin Albuterol/Ipratropium 1 amp 11/03/18 00:58 Duoneb - NEB Q6H PRN SHORTNESS OF BREATH Amlodipine Besylate 5 mg 11/03/18 10:00 11/03/18 09:04 Norvasc - PO 5 mg DAILY KESHAWN Administration Apixaban 2.5 mg 11/03/18 01:15 11/03/18 09:04 Eliquis - PO 2.5 mg BID KESHAWN Administration Atorvastatin Calcium 20 mg 11/03/18 22:00 Lipitor - PO HS KESHAWN Furosemide 60 mg 11/03/18 10:00 11/03/18 09:04 Lasix Injection - IVPUSH 60 mg DAILY KESHAWN Administration Azithromycin 500 mg/ Dextrose 250 mls @ 250 mls/hr 11/03/18 10:00 11/03/18 09 :07 IVPB 250 mls/hr DAILY KESHAWN Administration Insulin Aspart 1 vial 11/03/18 16:30 Novolog Vial Sliding Scale - SQ ACHS KESHAWN Protocol Methylprednisolone Sodium Succinate 60 mg 11/03/18 03:00 11/03/18 09:04 Solu-Medrol - IVPB 60 mg Q6H-IV KESHAWN Administration Metoprolol Succinate 25 mg 11/03/18 01:15 11/03/18 09:06 Toprol Xl - PO 25 mg BID KESHAWN Administration Pantoprazole Sodium 40 mg 11/03/18 10:00 11/03/18 09:05 Protonix - PO 40 mg DAILY KESHAWN Administration Impression 1. CKD 2. PAULA 3. COPD 4. asthma 5. dyspnea 6. HTN 7. a-fib 8. CHF 9. 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
[2018-11-03] MEDS ORDERED: CALCIUM CARBONATE PO SCH (14:45)
[2018-11-03] MEDS ORDERED: [UNRECOGNIZED DRUG - OTHER] PO SCH (14:45)
[2018-11-03] MEDS ORDERED: VITAMIN D3 PO SCH (14:45)
[2018-11-03] MEDS ORDERED: ERGOCALCIFEROL (VIT D2) 50,000 UNIT (1.25 MG) CAPSULE PO SCH (15:30)
[2018-11-03] MEDS ORDERED: INSULIN SLIDING SCALE (NOVOLOG) 1 VIAL SQ SCH (16:30)
[2018-11-03] MEDS ORDERED: INSULIN (NOVOLOG) ASPART 100 UNITS/ML 10ML VIAL ONE (16:39)
[2018-11-03] MEDS: INSULIN SLIDING SCALE (NOVOLOG) 1 VIAL SQ SCH ×2 (16:40→23:13)
--- NOTE | 2018-11-03 16:58 | PN ---
Teaching Attending Note Name of Resident: Ksenia Albrecht ATTENDING PHYSICIAN STATEMENT I saw and evaluated the patient. I reviewed the resident's note and discussed the case with the resident. I agree with the resident's findings and plan as documented. SUBJECTIVE:states breathing is slightly improved. is noted to be standing next to her bed but states she is unable to walk without dyspnea. non productive cough. dneies Cp, fver, chills, N/V/C/D OBJECTIVE: Last Vital Signs Temp Pulse Resp BP Pulse Ox 98.1 F 65 21 H 122/69 96 11/03/18 08:39 11/03/18 15:31 11/03/18 15:31 11/03/18 15:31 11/03/18 15:31 General NAD CV S1 S2 RRR no murmur/rub/gallop Lungs coarse breath sounds. decreased breath sounds Abdomen soft NT/ND extremities 1+ pitting edema ASSESSMENT AND PLAN: 88yo F with PMH COPD on 2L NC at home, diastolic chf, HTN, Afib on eliquis, and dyslipidemia presenting to the Er with progressively worsening dyspnea on exertion and found to be hypoxic in the ER 1. Acute on Chronic hypoxic respiratory failure-due to COPD vs acute on chronic diastolic CHF. currently 96% on 50% face mask. started on solumedrol 60mg Q6H, lasix 40mg IV, azithromycin day [address] chest now showing much fluid but clinically patient appearing volume overloaded and could benefit from diuresis. echo ordered. pulmonary on board. titrate down supplemental oxygen as tolerated. daily weights, once patient goes to the floor will need a weight 2. Acute on CKD- baseline Cr 2.2. slighly above could be pre-renal. avoid nephrotoxic agents. renal on board 3. HTN- controlled. cont current management 4. Afib on eliquis 5. Dyslipidemia- on statin 6. DVT ppx- eliquis
--- NOTE | 2018-11-03 17:26 | PN ---
Progress Note (short form) - Note Progress Note: PULMONARY CONSULTATION DICTATED 11/03/18 IMP ACUTE ON CHRONIC HYPOXEMIC/HYPERCAPNEIC RESPIRATORY FAILURE COPD EXACERBATION AFIB S/P PPM GERD HLD HTN SEVERE PULMONARY HTN OSAS MODERATE RESPONDED WELL TO BIPAP IPAP11 EPAP 7 CKD PLAN O2 MEDROL INHALED BRONCHODILATORS NIPPV IF PT DEVELOPES INCREASED RESPIRATORY DISTRESS BIPAP IPAP 11 EPAP 7 AT NIGHT IF PT COMPLIES ECHO CAPRI HORTON Problem List - Problems (1) Sleep apnea Code(s): G47.30 - SLEEP APNEA, UNSPECIFIED (2) Acute electrocardiogram changes Code(s): R94.31 - ABNORMAL ELECTROCARDIOGRAM [ECG] [EKG] (3) COPD exacerbation Code(s): J44.1 - CHRONIC OBSTRUCTIVE PULMONARY DISEASE W (ACUTE) EXACERBATION (4) Chest pain Code(s): R07.9 - CHEST PAIN, UNSPECIFIED (5) CHF (congestive heart failure) Code(s): I50.9 - HEART FAILURE, UNSPECIFIED (6) History of atrial fibrillation Code(s): Z86.79 - PERSONAL HISTORY OF OTHER DISEASES OF THE CIRCULATORY SYSTEM (7) Pulmonary HTN Code(s): I27.20 - PULMONARY HYPERTENSION, UNSPECIFIED (8) Acute on chronic respiratory failure with hypoxia and hypercapnia Code(s): J96.21 - ACUTE AND CHRONIC RESPIRATORY FAILURE WITH HYPOXIA; J96.22 - ACUTE AND CHRONIC RESPIRATORY FAILURE WITH HYPERCAPNIA
--- NOTE | 2018-11-03 19:00 | CONS ---
DATE OF CONSULTATION: 11/03/2018 REFERRING PHYSICIAN: Tiffany Molina MD The patient is an 88-year-old female with past medical history of advanced COPD on home O2 at 3-4 L; likely underlying interstitial lung disease; hypertension; hyperlipidemia; GERD; atrial fibrillation status post pacemaker, on Eliquis; severe pulmonary hypertension; RSVP of 55; moderate obstructive sleep apnea, responded well to BiPAP 11/7, admitted to [facility] with increasing shortness of breath and dyspnea on exertion over the past 2 weeks. Patient denied any complaints of chest pain, nausea, vomiting, or diaphoresis. Patient had increasing orthopnea and PND and lower extremity edema. Patient presented to the emergency room with the above. In the ER, the patient was noted to be markedly hypoxic with O2 saturations of 70% to 80%. She was placed on O2 with good response. She refused to go on BiPAP. Patient was treated with steroids, inhaled bronchodilators, as well as Lasix with good response. The patient denies any recent travel. There is no history of DVT or PE in the past. PAST MEDICAL HISTORY: Again includes COPD, O2 dependent; hypertension; hyperlipidemia; obstructive sleep apnea, moderate, responded well to BiPAP 11/7; GERD; status post pacemaker; pulmonary hypertension. REVIEW OF SYSTEMS: Positive orthopnea. Positive dyspnea. Positive dyspnea on exertion. Positive chest pain. No fever. No chills. No hemoptysis. No abdominal pain. Positive lower extremity edema. CURRENT MEDICATIONS: Include Solu-Medrol 60 q.6, Advair; Zithromax, Eliquis, Spiriva, DuoNeb, Toprol, Creon, Norvasc, Lipitor, NovoLog, Feosol, Lasix, Protonix. PHYSICAL EXAMINATION: General: The patient is a well-developed, well-nourished female, awake, alert, currently in no acute distress. Vital Signs: She is afebrile. Heart rate is 65. Blood pressure is 122/69. Respiratory rate is 20. O2 saturation is 96% on Ventimask. HEENT: Exam is normocephalic, atraumatic. Neck: Supple. Heart: Irregular, irregular. S1, S2. Chest: A few bibasilar crackles. A few scattered wheezes. Abdomen: Soft. Bowel sounds are positive. Extremities: Trace bilateral extremity edema. LABORATORY DATA: WBC is 8.3, hemoglobin 12.2, hematocrit 38.3, with a platelet count of 235,000. INR is 1.13. Blood gas showed 7.30, pCO2 of 62.7, a pO2 of 190, bicarbonate of 29, a saturation of 99. Chemistries: BUN 40, creatinine 2.5. Chest CT: COPD changes, likely underlying interstitial lung disease. IMPRESSION: [id number], hypoxemic, hypercapnic respiratory failure secondary to: 1. Likely chronic obstructive pulmonary disease exacerbation. 2. Atrial fibrillation status post permanent pacemaker. 3. Likely ILD 4. Gastroesophageal reflux disease. 5. Chronic kidney disease. 6. Hypertension. 7. Hyperlipidemia. 8. Severe pulmonary hypertension. 9. Obstructive sleep apnea, moderate, responded well to bi-level positive airway pressure and continuous positive airway pressure titration. PLAN: Supplemental O2, short course of Medrol, inhaled bronchodilators, echo, Lasix, NIPPV if patient develops increasing respiratory distress.Bipap IPAP 11 EPAP 7 at night if pt complies. CATARINO HORTON M.D. [id number] MTDD
[2018-11-03] MEDS: LIPASE/PROTEASE/AMYLASE 36,000 UNIT CAPSULE PO SCH (21:33)
[2018-11-03] MEDS: ATORVASTATIN CA 20 MG TABLET (FP) PO SCH (23:02)
[2018-11-03] MEDS: FLUTICASONE/SALMETEROL 100 MCG/50 MCG DISKUS IH SCH (23:58)
[2018-11-04 00:24] VITALS: BMI 28.3
[2018-11-04] MEDS: methylPREDNISolone NA SUCC 40 MG/1 ML VIAL IVPB SCH ×4 (02:59→21:39)
[2018-11-04] MEDS: INSULIN SLIDING SCALE (NOVOLOG) 1 VIAL SQ SCH ×4 (06:02→22:15)
[2018-11-04 08:15] LABS: BASO % 0.1 % (0-2.0); HEMATOCRIT 37.3 % (32.4-45.2); HEMOGLOBIN 11.7 GM/dL (10.7-15.3); LYMPH % 5.3 % (8-40); MCH 27.4 pg (25.7-33.7); MCHC 31.3 g/dl (32.0-36.0); MEAN CELL VOLUME 87.7 fl (80-96); MEAN PLT VOLUME 8.8 fl (7.5-11.1); MONO % 1.5 % (3.8-10.2); NEUT % 93.1 % (42.8-82.8); PLATELET COUNT 260 K/MM3 (134-434); RBC 4.25 M/mm3 (3.60-5.2); RDW 14.9 % (11.6-15.6); WHITE BLOOD COUNT 8.8 K/mm3 (4.0-10.0)
[2018-11-04 08:51] LABS: ALBUMIN 3.1 g/dl (3.4-5.0); BILIRUBIN,TOTAL 0.5 mg/dL (0.2-1); BLOOD UREA NITROGEN 54.8 mg/dL (7-18); CALCIUM 9.3 mg/dL (8.5-10.1); CREATININE 2.4 mg/dL (0.55-1.3); POTASSIUM 4.9 mmol/L (3.5-5.1); TOT PROT 7.2 g/dl (6.4-8.2)
[2018-11-04] MEDS: LIPASE/PROTEASE/AMYLASE 36,000 UNIT CAPSULE PO SCH ×3 (09:30→18:38)
[2018-11-04] MEDS ORDERED: PATIENT'S OWN MEDICATION (NON-FORMULARY) (Fluticasone/Salmeterol [Advair Hfa 230-21 Mcg In IH SCH (10:00)
[2018-11-04] MEDS ORDERED: FUROSEMIDE 40 MG TABLET (FP) PO SCH (10:00)
[2018-11-04] MEDS: FLUTICASONE/SALMETEROL 100 MCG/50 MCG DISKUS IH SCH ×2 (10:06→21:47)
[2018-11-04] MEDS: AZITHROMYCIN IVPB 500 MG/250 ML BAG IVPB SCH (10:06)
[2018-11-04] MEDS: amLODIPine BESYLATE 5 MG TABLET (FP) PO SCH (10:06)
[2018-11-04] MEDS: FERROUS SO4 325 MG TABLET (FP) PO SCH (10:06)
[2018-11-04] MEDS: FUROSEMIDE 40 MG/4 ML INJECTABLE VIAL IVPUSH SCH (10:06)
[2018-11-04] MEDS: metoPROLOL SUCCINATE 25 MG TAB.SR.24H (FP) PO SCH ×2 (10:06→21:39)
[2018-11-04] MEDS: APIXABAN 2.5 MG TABLET PO SCH ×2 (10:06→21:40)
[2018-11-04] MEDS: PANTOPRAZOLE 40 MG TABLET (FP) PO SCH (10:06)
--- NOTE | 2018-11-04 10:27 | ECHO ---
Name: THOMAS RYAN Exam:Adult Echocardiogram Study Date: 11/03/2018 12:02 PM Age: 88 yrs Reason For Study: Chest pain ABNORMAL EKG Height: 59 in Weight: 133 lb BSA: 1.6 m2 MMode/2D Measurements & Calculations IVSd: 0.87 cm Ao root diam: 2.7 cm LVIDd: 4.6 cm LA dimension: 4.4 cm LVIDs: 3.2 cm LVPWd: 0.83 cm EDV(Teich): 97.7 ml LVOT diam: 2.0 cm ESV(Teich): 41.0 ml Doppler Measurements & Calculations MV E max tejas: 80.2 cm/sec Ao V2 max: 212.4 cm/sec MV A max tejas: 127.7 cm/sec Ao max P.0 mmHg MV E/A: 0.63 Ao V2 mean: 161.1 cm/sec MV dec time: 0.31 sec Ao mean P.6 mmHg Ao V2 VTI: 48.2 cm BRYAN(I,D): 1.1 cm2 BRYAN(V,D): 1.1 cm2 LV V1 max P.5 mmHg MR max tejas: 413.8 cm/sec LV V1 mean P.5 mmHg MR max P.0 mmHg LV V1 max: 79.2 cm/sec LV V1 mean: 58.3 cm/sec LV V1 VTI: 17.6 cm SV(LVOT): 54.3 ml TR max tejas: 289.6 cm/sec TR max P.7 mmHg PI end-d tejas: 128.2 cm/sec Med Peak E' Tejas: 3.9 cm/sec Med E/e': 20.6 Lat Peak E' Tejas: 5.7 cm/sec Lat E/e': 14.1 Procedure A complete two-dimensional transthoracic echocardiogram was performed (2D, M-mode, Doppler and color flow Doppler). Technically limited study. Left Ventricle The left ventricle is normal in size. Left ventricular systolic function is normal. Ejection Fraction = 55- 60%. Diastolic dysfunction, Grade II, consistent with elevated left atrial pressure. Ratio E/E'= 20. No regional wall motion abnormalities noted. Right Ventricle The right ventricle is normal size. The right ventricular systolic function is normal. RV systolic TD I is 11 cm/s. Atria The left atrial size is normal. Right atrial size is normal. Mitral Valve There is mild to moderate mitral annular calcification. There is trace to mild mitral regurgitation. Tricuspid Valve The tricuspid valve is normal in structure and function. There is mild to moderate tricuspid regurgit ation. Pulmonary artery systolic pressure is at least 44 mmHg if RA pressure is assumed 3 mmHg (although IVC is not well visualized). Aortic Valve There is mild aortic valve thickening. Mild to moderate valvular aortic stenosis. The calculated aort ic valve area using the continuity equation is 1.1 cm2. Aortic mean pressure gradient= 12 mmHg. DI (dimensionl ess index) is 0.36. No aortic regurgitation is present. Pulmonic Valve The pulmonic valve is not well visualized. Mild pulmonic valvular regurgitation. Great Vessels The aortic root is normal size. Pericardium/Pleura There is no pericardial effusion. Interpretation Summary Technically limited study The left ventricle is normal in size. Left ventricular systolic function is normal. No regional wall motion abnormalities noted. Ejection Fraction = 55-60%. Diastolic dysfunction, Grade II, consistent with elevated left atrial pressure. Ratio E/E'= 20 The right ventricular systolic function is normal. The left atrial size is normal. Right atrial size is normal. There is mild to moderate mitral annular calcification. There is trace to mild mitral regurgitation. There is mild to moderate tricuspid regurgitation. Pulmonary artery systolic pressure is at least 44 mmHg if RA pressure is assumed 3 mmHg (although IVC is not well visualized) There is mild aortic valve thickening. Mild to moderate valvular aortic stenosis. The calculated aortic valve area using the continuity equation is 1.1 cm2. Aortic mean pressure gradient= 12 mmHg DI (dimensionless index) is 0.36 No aortic regurgitation is present. Mild pulmonic valvular regurgitation. There is no pericardial effusion. When compared to study dated 05/19/18, aortic stenosis appears to be more evident. Clinical correlatio n is recommended El Deleon MD 11/04/2018 10:27 AM
[2018-11-04 10:39] LABS: ANISOCYTOSIS 0; MACROCYTOSIS 0; PLATELET ESTIMATE NORMAL
[2018-11-04] MEDS ORDERED: PT OWN MED DRAWER 7, Y5N ONE ×3 (11:53→18:37)
--- NOTE | 2018-11-04 12:25 | PN ---
Progress Note (short form) - Note Progress Note: PULMONARY States breathing better today. Less cough. No chest pain. Vital Signs Period Temp Pulse Resp BP Sys/Perez Pulse Ox Last 24 Hr 97.7 F-98.2 F 60-73 20-21 122-156/62-90 82-96 Gen: NAD on ventimask Heart: RRR Lung: scattered rhonchi Abd: soft, nontender Ext: no edema CBC, BMP 11/04/18 06:00 11/04/18 06:00 Active Medications Albuterol/Ipratropium (Duoneb -) 1 amp NEB Q6H PRN PRN Reason: SHORTNESS OF BREATH Amlodipine Besylate (Norvasc -) 5 mg PO DAILY [facility] Last Admin: 11/04/18 10:06 Dose: 5 mg Apixaban (Eliquis -) 2.5 mg PO BID [facility] Last Admin: 11/04/18 10:06 Dose: 2.5 mg Atorvastatin Calcium (Lipitor -) 20 mg PO HS [facility] Last Admin: 11/03/18 23:02 Dose: 20 mg Ergocalciferol (Drisdol -) 50,000 unit PO Q7D [facility] Last Admin: 11/03/18 15:57 Dose: 50,000 unit Ferrous Sulfate (Feosol -) 325 mg PO DAILY [facility] Last Admin: 11/04/18 10:06 Dose: 325 mg Furosemide (Lasix Injection -) 40 mg IVPUSH DAILY [facility] Last Admin: 11/04/18 10:06 Dose: 40 mg Azithromycin (Zithromax 500mg Ivpb (Pre-Docked)) 500 mg in 250 mls @ 250 mls/ hr IVPB DAILY [facility] Last Admin: 11/04/18 10:06 Dose: 250 mls/hr Insulin Aspart (Novolog Vial Sliding Scale -) 1 vial SQ ACHS [facility]; Protocol Last Admin: 11/04/18 12:21 Dose: 2 units Methylprednisolone Sodium Succinate (Solu-Medrol -) 60 mg IVPB Q6H-IV [facility] Last Admin: 11/04/18 10:05 Dose: 60 mg Metoprolol Succinate (Toprol Xl -) 25 mg PO BID [facility] Last Admin: 11/04/18 10:06 Dose: 25 mg Pancrelipase (Creon Dr 36,000 Units Capsule) 1 cap PO TIDCM [facility] Last Admin: 11/03/18 21:33 Dose: 1 cap Pantoprazole Sodium (Protonix -) 40 mg PO DAILY [facility] Last Admin: 11/04/18 10:06 Dose: 40 mg Fluticasone/Salmeterol (Advair 100mcg/50mcg -) 1 puff IH BID [facility] Last Admin: 11/04/18 10:06 Dose: 1 puff Tiotropium [place] (Spiriva Respimat) 2 puff IH DAILY [facility] A/P Acute on Chronic Hypoxic and Hypercapneic Respiratory Failure Acute COPD Exacerbation Pulmonary HTN GLORIA Atrial Fibrillation HTN Hyperlipidemia CKD - continue medrol - inhaled bronchodilators - O2 to keep SpO2 >90% - azithromycin - continue lasix - monitor urine output, creatinine - rate control - continue anticoagulation
--- NOTE | 2018-11-04 13:22 | PN ---
Teaching Attending Note Name of Resident: Ksenia Albrecht ATTENDING PHYSICIAN STATEMENT I saw and evaluated the patient. I reviewed the resident's note and discussed the case with the resident. I agree with the resident's findings and plan as documented. SUBJECTIVE: Ongoing dyspnea. Cough. No hemoptysis. No fever/chills. Refuses BiPAP. OBJECTIVE: Afebrile, Hemodynamically Stable. Last Vital Signs Temp Pulse Resp BP Pulse Ox 97.9 F 67 20 156/90 93 L 11/04/18 09:00 11/04/18 09:00 11/04/18 11:00 11/04/18 09:00 11/04/18 11:00 HEENT - Atraumatic, Normocephalic. Heart - S1, S2, soft SM Lungs - bibasal fine crackles, reduced air entry globally Abdomen - soft, non-tender. Bowel Sounds normal. Extremities - no edema, no calf tenderness. Laboratory Results - last 24 hr 11/03/18 11/03/18 11/04/18 16:36 23:04 05:30 WBC RBC Hgb Hct MCV MCH MCHC RDW Plt Count MPV Absolute Neuts (auto) Neutrophils % Neutrophils % (Manual) Band Neutrophils % Lymphocytes % Lymphocytes % (Manual) Monocytes % Monocytes % (Manual) Eosinophils % Eosinophils % (Manual) Basophils % Basophils % (Manual) Myelocytes % (Man) Promyelocytes % (Man) Blast Cells % (Manual) Nucleated RBC % Metamyelocytes Hypochromia Platelet Estimate Polychromasia Poikilocytosis Anisocytosis Microcytosis Macrocytosis Sodium Potassium Chloride Carbon Dioxide Anion Gap BUN Creatinine Est GFR (CKD-EPI)AfAm Est GFR (CKD-EPI)NonAf POC Glucometer 188 164 146 Random Glucose Hemoglobin A1c % Calcium Total Bilirubin AST ALT Alkaline Phosphatase Total Protein Albumin 11/04/18 11/04/18 11/04/18 06:00 06:00 06:00 WBC 8.8 RBC 4.25 Hgb 11.7 Hct 37.3 MCV 87.7 MCH 27.4 MCHC 31.3 L RDW 14.9 Plt Count 260 MPV 8.8 Absolute Neuts (auto) 8.2 H Neutrophils % 93.1 H Neutrophils % (Manual) 91.0 H Band Neutrophils % 1.0 Lymphocytes % 5.3 L Lymphocytes % (Manual) 7.0 L D Monocytes % 1.5 L D Monocytes % (Manual) 1 L Eosinophils % 0.0 D Eosinophils % (Manual) 0.0 Basophils % 0.1 Basophils % (Manual) 0.0 Myelocytes % (Man) 0 Promyelocytes % (Man) 0 Blast Cells % (Manual) 0 Nucleated RBC % 0 Metamyelocytes 0 Hypochromia 0 Platelet Estimate Normal Polychromasia 0 Poikilocytosis 0 Anisocytosis 0 Microcytosis 0 Macrocytosis 0 Sodium 140 Potassium 4.9 Chloride 99 Carbon Dioxide 35 H Anion Gap 6 L BUN 54.8 H Creatinine 2.4 H Est GFR (CKD-EPI)AfAm 20.50 Est GFR (CKD-EPI)NonAf 17.69 POC Glucometer Random Glucose 146 H Hemoglobin A1c % 6.5 H Calcium 9.3 Total Bilirubin 0.5 AST 29 ALT 14 Alkaline Phosphatase 107 Total Protein 7.2 Albumin 3.1 L 11/04/18 12:18 WBC RBC Hgb Hct MCV MCH MCHC RDW Plt Count MPV Absolute Neuts (auto) Neutrophils % Neutrophils % (Manual) Band Neutrophils % Lymphocytes % Lymphocytes % (Manual) Monocytes % Monocytes % (Manual) Eosinophils % Eosinophils % (Manual) Basophils % Basophils % (Manual) Myelocytes % (Man) Promyelocytes % (Man) Blast Cells % (Manual) Nucleated RBC % Metamyelocytes Hypochromia Platelet Estimate Polychromasia Poikilocytosis Anisocytosis Microcytosis Macrocytosis Sodium Potassium Chloride Carbon Dioxide Anion Gap BUN Creatinine Est GFR (CKD-EPI)AfAm Est GFR (CKD-EPI)NonAf POC Glucometer 178 Random Glucose Hemoglobin A1c % Calcium Total Bilirubin AST ALT Alkaline Phosphatase Total Protein Albumin Current Medications Generic Name Dose Route Start Last Admin Trade Name Freq PRN Reason Stop Dose Admin Albuterol/Ipratropium 1 amp 11/03/18 00:58 Duoneb - NEB Q6H PRN SHORTNESS OF BREATH Amlodipine Besylate 5 mg 11/03/18 10:00 11/04/18 10:06 Norvasc - PO 5 mg DAILY [facility] Administration Apixaban 2.5 mg 11/03/18 01:15 11/04/18 10:06 Eliquis - PO 2.5 mg BID [facility] Administration Atorvastatin Calcium 20 mg 11/03/18 22:00 11/03/18 23:02 Lipitor - PO 20 mg HS [facility] Administration Ergocalciferol 50,000 unit 11/03/18 15:30 11/03/18 15:57 Drisdol - PO 50,000 unit Q7D [facility] Administration Ferrous Sulfate 325 mg 11/04/18 10:00 11/04/18 10:06 Feosol - PO 325 mg DAILY [facility] Administration Furosemide 40 mg 11/04/18 10:00 11/04/18 10:06 Lasix Injection - IVPUSH 40 mg DAILY [facility] Administration Azithromycin 500 mg in 250 mls @ 250 mls/hr 11/04/18 10:00 11/04/18 10:06 Zithromax 500mg Ivpb (Pre-Docked) IVPB 250 mls/hr DAILY [facility] Administration Insulin Aspart 1 vial 11/03/18 16:30 11/04/18 12:21 Novolog Vial Sliding Scale - SQ 2 units ACHS [facility] Administration Protocol Methylprednisolone Sodium Succinate 60 mg 11/03/18 03:00 11/04/18 10:05 Solu-Medrol - IVPB 60 mg Q6H-IV [facility] Administration Metoprolol Succinate 25 mg 11/03/18 01:15 11/04/18 10:06 Toprol Xl - PO 25 mg BID [facility] Administration Pancrelipase 1 cap 11/03/18 17:30 11/04/18 12:[address] 36,000 Units Capsule PO 1 cap TIDCM [facility] Administration Pantoprazole Sodium 40 mg 11/03/18 10:00 11/04/18 10:06 Protonix - PO 40 mg DAILY [facility] Administration Fluticasone/Salmeterol 1 puff 11/03/18 22:00 11/04/18 10:06 Advair 100mcg/50mcg - IH 1 puff BID [facility] Administration Tiotropium [place] 2 puff 11/04/18 10:00 Spiriva Respimat IH DAILY [facility] ASSESSMENT AND PLAN: 88 year old female with CRF sec to COPD (on 2L O2 via NC at home), Chronic Diastolic CHF, HTN, Atrial Fibrillation on Eliquis, and HLD, presented with progressively worsening dyspnea on exertion and found to be hypoxic in the ER. 1. Acute on Chronic hypoxic/hypercapneic respiratory failure secondary to: A. Acute Exacerbation COPD Desaturating to 79% on 2L via NC - Supplemental O2 via mask. Refuses BiPAP. Continue IV Solumedrol, Azithromycin, Bronchodilator Nebs. Continue Spiriva, Advair Pulmonary consulted. B. Acute on Chronic Diastolic CHF with moderate Aortic Stenosis CXR - congestive changes, R sided effusion. Echo - normal EF, mild to moderate , Grade II Diastolic dysfunction. Continue IV Lasix diuresis. Daily I/Os, Weights 2. PAULA on CKD 3 - baseline Cr 2.2, currently 2.5. Possible cardiorenal component. Nephrology following. 3. HTN - continue Toprol XL and Norvasc. 4. Atrial Fibrillation - continue Toprol XL and Eliquis. 5. HLD - Continue Statin. DVT Px - on Eliquis. GI Px - Protonix
--- NOTE | 2018-11-04 13:46 | PN ---
Progress Note, Physician History of Present Illness: Pt seen and examined at bedside. She is awake and alert. She feels that her breathing has improved. - Current Medication List Current Medications: Active Medications Albuterol/Ipratropium (Duoneb -) 1 amp NEB Q6H PRN PRN Reason: SHORTNESS OF BREATH Amlodipine Besylate (Norvasc -) 5 mg PO DAILY [facility] Last Admin: 11/04/18 10:06 Dose: 5 mg Apixaban (Eliquis -) 2.5 mg PO BID [facility] Last Admin: 11/04/18 10:06 Dose: 2.5 mg Atorvastatin Calcium (Lipitor -) 20 mg PO HS [facility] Last Admin: 11/03/18 23:02 Dose: 20 mg Ergocalciferol (Drisdol -) 50,000 unit PO Q7D [facility] Last Admin: 11/03/18 15:57 Dose: 50,000 unit Ferrous Sulfate (Feosol -) 325 mg PO DAILY [facility] Last Admin: 11/04/18 10:06 Dose: 325 mg Furosemide (Lasix Injection -) 40 mg IVPUSH DAILY [facility] Last Admin: 11/04/18 10:06 Dose: 40 mg Azithromycin (Zithromax 500mg Ivpb (Pre-Docked)) 500 mg in 250 mls @ 250 mls/ hr IVPB DAILY [facility] Last Admin: 11/04/18 10:06 Dose: 250 mls/hr Insulin Aspart (Novolog Vial Sliding Scale -) 1 vial SQ ACHS [facility]; Protocol Last Admin: 11/04/18 12:21 Dose: 2 units Methylprednisolone Sodium Succinate (Solu-Medrol -) 60 mg IVPB Q6H-IV [facility] Last Admin: 11/04/18 10:05 Dose: 60 mg Metoprolol Succinate (Toprol Xl -) 25 mg PO BID [facility] Last Admin: 11/04/18 10:06 Dose: 25 mg Pancrelipase (Creon Dr 36,000 Units Capsule) 1 cap PO TIDCM [facility] Last Admin: 11/04/18 12:57 Dose: 1 cap Pantoprazole Sodium (Protonix -) 40 mg PO DAILY [facility] Last Admin: 11/04/18 10:06 Dose: 40 mg Fluticasone/Salmeterol (Advair 100mcg/50mcg -) 1 puff IH BID [facility] Last Admin: 11/04/18 10:06 Dose: 1 puff Tiotropium [place] (Spiriva Respimat) 2 puff IH DAILY [facility] - Objective Vital Signs: Vital Signs Temperature 97.9 F 11/04/18 09:00 Pulse Rate 67 11/04/18 09:00 Respiratory Rate 20 11/04/18 11:00 Blood Pressure 156/90 11/04/18 09:00 O2 Sat by Pulse Oximetry (%) 93 L 11/04/18 11:00 Constitutional: Yes: Calm Eyes: Yes: Conjunctiva Clear HENT: Yes: WNL Cardiovascular: Yes: S1, S2 Respiratory: Yes: On Nasal O2 Gastrointestinal: Yes: Soft Genitourinary: Yes: WNL Extremities: Yes: WNL Edema: Yes Edema: LLE: 1+, RLE: 1+ Neurological: Yes: Oriented Psychiatric: Yes: Oriented Labs: CBC, BMP 11/04/18 06:00 11/04/18 06:00 INR, PTT INR 1.13 (0.83-1.09) H 11/02/18 22:30 Assessment/Plan Current Medications Generic Name Dose Route Start Last Admin Trade Name Freq PRN Reason Stop Dose Admin Albuterol/Ipratropium 1 amp 11/03/18 00:58 Duoneb - NEB Q6H PRN SHORTNESS OF BREATH Amlodipine Besylate 5 mg 11/03/18 10:00 11/04/18 10:06 Norvasc - PO 5 mg DAILY [facility] Administration Apixaban 2.5 mg 11/03/18 01:15 11/04/18 10:06 Eliquis - PO 2.5 mg BID [facility] Administration Atorvastatin Calcium 20 mg 11/03/18 22:00 11/03/18 23:02 Lipitor - PO 20 mg HS [facility] Administration Ergocalciferol 50,000 unit 11/03/18 15:30 11/03/18 15:57 Drisdol - PO 50,000 unit Q7D [facility] Administration Ferrous Sulfate 325 mg 11/04/18 10:00 11/04/18 10:06 Feosol - PO 325 mg DAILY [facility] Administration Furosemide 40 mg 11/04/18 10:00 11/04/18 10:06 Lasix Injection - IVPUSH 40 mg DAILY [facility] Administration Azithromycin 500 mg in 250 mls @ 250 mls/hr 11/04/18 10:00 11/04/18 10:06 Zithromax 500mg Ivpb (Pre-Docked) IVPB 250 mls/hr DAILY [facility] Administration Insulin Aspart 1 vial 11/03/18 16:30 11/04/18 12:21 Novolog Vial Sliding Scale - SQ 2 units ACHS [facility] Administration Protocol Methylprednisolone Sodium Succinate 60 mg 11/03/18 03:00 11/04/18 10:05 Solu-Medrol - IVPB 60 mg Q6H-IV [facility] Administration Metoprolol Succinate 25 mg 11/03/18 01:15 11/04/18 10:06 Toprol Xl - PO 25 mg BID [facility] Administration Pancrelipase 1 cap 11/03/18 17:30 11/04/18 12:[address] 36,000 Units Capsule PO 1 cap TIDCM [facility] Administration Pantoprazole Sodium 40 mg 11/03/18 10:00 11/04/18 10:06 Protonix - PO 40 mg DAILY [facility] Administration Fluticasone/Salmeterol 1 puff 11/03/18 22:00 11/04/18 10:06 Advair 100mcg/50mcg - IH 1 puff BID [facility] Administration Tiotropium [place] 2 puff 11/04/18 10:00 Spiriva Respimat IH DAILY [facility] Impression 1. CKD 2. PAULA 3. COPD 4. asthma 5. dyspnea 6. HTN 7. a-fib 8. CHF 9. CAD Plan - renla function starting to improve - cont lasix - monitor lytes - may have a component of cardio renal - avoid nsaids - steroids may cause an elevation of bun, taper as tolerated - check echo
--- NOTE | 2018-11-04 16:34 | PN ---
Physical Exam: SUBJECTIVE: Patient seen and examined at bedside. Pt monitored on tele floor; consistently desaturates when not on oxygen. Currently she is on venti mask 40% . Still refusing BIPAP after re-educating on benefits of BIPAP therapy. OBJECTIVE: Vital Signs Period Temp Pulse Resp BP Sys/Perez Pulse Ox Last 24 Hr 97.7 F-98.2 F 60-73 18-20 127-156/62-90 82-95 GENERAL: Elderly woman in mild discomfort. Sitting up in bed. HEENT: Neck supple. LUNGS: Difficulty breathing. On venti mask 40%. Nonproductive cough present HEART: Regular rate and rhythm, S1, S2 without murmur, rub or gallop. ABDOMEN: Soft, nontender, nondistended, normoactive bowel sounds. EXTREMITIES: 2+ pulses, warm, well-perfused, no edema. NEUROLOGICAL: Normal speech and gait SKIN: Normal. No rashes or bruising noted Laboratory Results - last 24 hr Laboratory Last Values WBC 8.8 K/mm3 (4.0-10.0) 11/04/18 06:00 RBC 4.25 M/mm3 (3.60-5.2) 11/04/18 06:00 Hgb 11.7 GM/dL (10.7-15.3) 11/04/18 06:00 Hct 37.3 % (32.4-45.2) 11/04/18 06:00 MCV 87.7 fl (80-96) 11/04/18 06:00 MCH 27.4 pg (25.7-33.7) 11/04/18 06:00 MCHC 31.3 g/dl (32.0-36.0) L 11/04/18 06:00 RDW 14.9 % (11.6-15.6) 11/04/18 06:00 Plt Count 260 K/MM3 (134-434) 11/04/18 06:00 MPV 8.8 fl (7.5-11.1) 11/04/18 06:00 Absolute Neuts (auto) 8.2 K/mm3 (1.5-8.0) H 11/04/18 06:00 Neutrophils % 93.1 % (42.8-82.8) H 11/04/18 06:00 Neutrophils % (Manual) 91.0 % (42.8-82.8) H 11/04/18 06:00 Band Neutrophils % 1.0 % 11/04/18 06:00 Lymphocytes % 5.3 % (8-40) L 11/04/18 06:00 Lymphocytes % (Manual) 7.0 % (8-40) L D 11/04/18 06:00 Monocytes % 1.5 % (3.8-10.2) L D 11/04/18 06:00 Monocytes % (Manual) 1 % (3.8-10.2) L 11/04/18 06:00 Eosinophils % 0.0 % (0-4.5) D 11/04/18 06:00 Eosinophils % (Manual) 0.0 % (0-4.5) 11/04/18 06:00 Basophils % 0.1 % (0-2.0) 11/04/18 06:00 Basophils % (Manual) 0.0 % (0-2.0) 11/04/18 06:00 Myelocytes % (Man) 0 % (0-2) 11/04/18 06:00 Promyelocytes % (Man) 0 % (0-2) 11/04/18 06:00 Blast Cells % (Manual) 0 % (0-0) 11/04/18 06:00 Nucleated RBC % 0 % (0-0) 11/04/18 06:00 Metamyelocytes 0 % (0-2) 11/04/18 06:00 Hypochromia 0 11/04/18 06:00 Platelet Estimate Normal 11/04/18 06:00 Polychromasia 0 11/04/18 06:00 Poikilocytosis 0 11/04/18 06:00 Anisocytosis 0 11/04/18 06:00 Microcytosis 0 11/04/18 06:00 Macrocytosis 0 11/04/18 06:00 Spherocytes 1+ 11/03/18 06:30 Target Cells 1+ 11/03/18 06:30 Stomatocytes 1+ 11/03/18 06:30 Acanthocytes (Spur) 1+ 11/03/18 06:30 PT with INR 13.30 SEC (9.7-13.0) H 11/02/18 22:30 INR 1.13 (0.83-1.09) H 11/02/18 22:30 PTT (Actin FS) 35.6 SECONDS (25.2-36.5) 11/02/18 22:30 Anticoagulation Therapy No Result Required. 11/02/18 21:53 Puncture Site No Result Required. 11/02/18 21:53 ABG pH 7.30 (7.35-7.45) L 11/02/18 21:53 ABG pCO2 at Pt Temp 62.7 mmHg (35-45) H 11/02/18 21:53 ABG pO2 at Pt Temp 190 mmHg (80-105) H 11/02/18 21:53 ABG HCO3 29.9 mmol/L (22-27) H 11/02/18 21:53 ABG O2 Sat (Measured) 99.6 % (95-98) H 11/02/18 21:53 ABG O2 Content 16.9 % vol (15-22) 11/02/18 21:53 ABG Base Excess 2.6 meq/l (-2-2) H 11/02/18 21:53 Ankit Test No Result Required. 11/02/18 21:53 Carboxyhemoglobin 1.2 % (0-2) 11/02/18 21:53 Methemoglobin 0.3 % (0-2) 11/02/18 21:53 O2 Delivery Device No Result Required. 11/02/18 21:53 Oxygen Flow Rate No Result Required. 11/02/18 21:53 Vent Mode No Result Required. 11/02/18 21:53 Vent Rate No Result Required. 11/02/18 21:53 Mechanical Rate No Result Required. 11/02/18 21:53 Pressure Support Vent No Result Required. 11/02/18 21:53 Sodium 140 mmol/L (136-145) 11/04/18 06:00 Potassium 4.9 mmol/L (3.5-5.1) 11/04/18 06:00 Chloride 99 mmol/L (98-107) 11/04/18 06:00 Carbon Dioxide 35 mmol/L (21-32) H 11/04/18 06:00 Anion Gap 6 MMOL/L (8-16) L 11/04/18 06:00 BUN 54.8 mg/dL (7-18) H 11/04/18 06:00 Creatinine 2.4 mg/dL (0.55-1.3) H 11/04/18 06:00 Est GFR (CKD-EPI)AfAm 20.50 11/04/18 06:00 Est GFR (CKD-EPI)NonAf 17.69 11/04/18 06:00 POC Glucometer 178 UNITS (80-120) 11/04/18 12:18 Random Glucose 146 mg/dL (74-106) H 11/04/18 06:00 Hemoglobin A1c % 6.5 % (4.2-6.3) H 11/04/18 06:00 Calcium 9.3 mg/dL (8.5-10.1) 11/04/18 06:00 Phosphorus 4.6 mg/dL (2.5-4.9) 11/03/18 06:30 Magnesium 2.3 mg/dL (1.8-2.4) 11/03/18 06:30 Total Bilirubin 0.5 mg/dL (0.2-1) 11/04/18 06:00 AST 29 U/L (15-37) 11/04/18 06:00 ALT 14 U/L (13-61) 11/04/18 06:00 Alkaline Phosphatase 107 U/L (45-117) 11/04/18 06:00 Troponin I < 0.02 ng/ml (0.00-0.05) 11/03/18 06:30 B-Natriuretic Peptide 1841.8 pg/ml (5-450) H 11/02/18 21:53 Total Protein 7.2 g/dl (6.4-8.2) 11/04/18 06:00 Albumin 3.1 g/dl (3.4-5.0) L 11/04/18 06:00 Triglycerides 73 mg/dL (0-150) 11/03/18 06:30 Cholesterol 115 mg/dL (50-200) 11/03/18 06:30 Total LDL Cholesterol 60 mg/dL (5-100) 11/03/18 06:30 HDL Cholesterol 41 mg/dL (40-60) 11/03/18 06:30 Urine Color Yellow 11/03/18 01:35 Urine Appearance Clear 11/03/18 01:35 Urine pH 6.0 (5.0-8.0) 11/03/18 01:35 Ur Specific [place] 1.011 (1.010-1.035) 11/03/18 01:35 Urine Protein 2+ (NEGATIVE) H 11/03/18 01:35 Urine Glucose (UA) Negative (NEGATIVE) 11/03/18 01:35 Urine Ketones Negative (NEGATIVE) 11/03/18 01:35 Urine Blood Negative (NEGATIVE) 11/03/18 01:35 Urine Nitrite Negative (NEGATIVE) 11/03/18 01:35 Urine Bilirubin Negative (NEGATIVE) 11/03/18 01:35 Urine Urobilinogen 0.2 mg/dL (0.2-1.0) 11/03/18 01:35 Ur Leukocyte Esterase Negative (NEGATIVE) 11/03/18 01:35 Urine WBC (Auto) 1 /hpf (0-5) 11/03/18 01:35 Urine RBC (Auto) 1 /hpf (0-4) 11/03/18 01:35 Urine Casts (Auto) 0 /lpf (0-8) 11/03/18 01:35 U Epithel Cells (Auto) 1.4 /HPF (0-5/HPF) 11/03/18 01:35 Urine Bacteria (Auto) 7.1 /hpf (NEGATIVE) 11/03/18 01:35 Ur Random Creatinine 66.0 mg/dL (30-150) 11/03/18 01:35 Ur Random Sodium 37 MMOL/L (40-220) L 11/03/18 01:35 Ur Random Potassium 23.0 MMOL/L (25-125) L 11/03/18 01:35 Ur Random Chloride 26 MMOL/L (110-250) L 11/03/18 01:35 Active Medications Generic Name Dose Route Start Last Admin Trade Name Gee PRN Reason Stop Dose Admin Albuterol/Ipratropium 1 amp 11/03/18 00:58 11/04/18 11:35 Duoneb - NEB 1 amp Q6H PRN Administration SHORTNESS OF BREATH Amlodipine Besylate 5 mg 11/03/18 10:00 11/04/18 10:06 Norvasc - PO 5 mg DAILY [facility] Administration Apixaban 2.5 mg 11/03/18 01:15 11/04/18 10:06 Eliquis - PO 2.5 mg BID [facility] Administration Atorvastatin Calcium 20 mg 11/03/18 22:00 11/03/18 23:02 Lipitor - PO 20 mg HS [facility] Administration Ergocalciferol 50,000 unit 11/03/18 15:30 11/03/18 15:57 Drisdol - PO 50,000 unit Q7D [facility] Administration Ferrous Sulfate 325 mg 11/04/18 10:00 11/04/18 10:06 Feosol - PO 325 mg DAILY [facility] Administration Furosemide 40 mg 11/04/18 10:00 11/04/18 10:06 Lasix Injection - IVPUSH 40 mg DAILY [facility] Administration Azithromycin 500 mg in 250 mls @ 250 mls/hr 11/04/18 10:00 11/04/18 10:06 Zithromax 500mg Ivpb (Pre-Docked) IVPB 250 mls/hr DAILY [facility] Administration Insulin Aspart 1 vial 11/03/18 16:30 11/04/18 12:21 Novolog Vial Sliding Scale - SQ 2 units ACHS [facility] Administration Protocol Methylprednisolone Sodium Succinate 60 mg 11/03/18 03:00 11/04/18 15:00 Solu-Medrol - IVPB 60 mg Q6H-IV [facility] Administration Metoprolol Succinate 25 mg 11/03/18 01:15 11/04/18 10:06 Toprol Xl - PO 25 mg BID [facility] Administration Pancrelipase 1 cap 11/03/18 17:30 11/04/18 12:[address] 36,000 Units Capsule PO 1 cap TIDCM [facility] Administration Pantoprazole Sodium 40 mg 11/03/18 10:00 11/04/18 10:06 Protonix - PO 40 mg DAILY [facility] Administration Fluticasone/Salmeterol 1 puff 11/03/18 22:00 11/04/18 10:06 Advair 100mcg/50mcg - IH 1 puff BID [facility] Administration Tiotropium [place] 2 puff 11/04/18 10:00 Spiriva Respimat IH DAILY [facility] Imagin/30 CXR: congestive changes, right pleural effusion 11/[address]: c/w emphysematous changes & likely ILD, trace pleural effusions, PAH ASSESSMENT/PLAN: 88 y.o. F w/ PMH HTN, HLD, COPD/ asthma on home O2 (3-4L), GERD, GLORIA, afib on Eloquis, double lead pacemaker presenting with acute on chronic respiratory failure and resp acidosis likely 2/2 to COPD & CHF. Pt had severe cough and chest congestion on admission. Continues to have desaturations when off venti mask. Refuses BIPAP. Pulm following. #Acute on Chronic hypoxic/hypercapneic respiratory failure 2/2 COPD +/- ILD -Desaturations to 78%on 2L NC -Supplemental O2 via NRB venti mask -Pt refuses BIPAP #Acute COPD exacerbation -Desats to 78% on 2L via NC -Pt refusing BIPAP -C/w IV Solumedrol, Azithromycin, bronchodilator Nebs, Spiriva, Advair -Pulmonary following #Acute on chronic diastolic CHF -Echo 11/03: Normal EF. Grade II diastolic dysfunction. Mild annular calcifications. Mild MR, TR, aortic valve thickening, mild-mod valvular . PAH is min 44mmHg. -CXR 11/02: congestive changes, rt pl eff -C/w Lasix for diuresis -Monitor ins & outs #PAULA on CKD 3 -Baseline Cr 2.2, today 2.5, trend Cr -Daily BMP -Nephro on board #HTN -C/w amlodipine #HLD -C/w Simvastatin #GERD -Protonix #DVT PPX -Apixaban 2.5 PO BID #Dispo Home Visit type - Emergency Visit Emergency Visit: No - New Patient This patient is new to me today: No - Critical Care Critical Care patient: No
[2018-11-04] MEDS: TIOTROPIUM BROMIDE 2.5 MCG (SPIRIVA) RESPIMAT INHALER IH SCH (17:30)
[2018-11-04] MEDS: ATORVASTATIN CA 20 MG TABLET (FP) PO SCH (21:39)
[2018-11-05] MEDS: methylPREDNISolone NA SUCC 40 MG/1 ML VIAL IVPB SCH ×2 (04:41→09:54)
[2018-11-05] MEDS: INSULIN SLIDING SCALE (NOVOLOG) 1 VIAL SQ SCH ×4 (06:04→21:48)
[2018-11-05 07:58] LABS: BASO % 0.2 % (0-2.0); HEMATOCRIT 36.7 % (32.4-45.2); HEMOGLOBIN 11.6 GM/dL (10.7-15.3); LYMPH % 2.3 % (8-40); MCH 27.4 pg (25.7-33.7); MCHC 31.5 g/dl (32.0-36.0); MEAN PLT VOLUME 8.7 fl (7.5-11.1); MONO % 1.7 % (3.8-10.2); NEUT % 95.8 % (42.8-82.8); PLATELET COUNT 281 K/MM3 (134-434); RBC 4.22 M/mm3 (3.60-5.2); RDW 15.3 % (11.6-15.6); WHITE BLOOD COUNT 11.9 K/mm3 (4.0-10.0)
[2018-11-05] MEDS ORDERED: PT OWN MED DRAWER 7, Y5N ONE (08:13)
[2018-11-05] MEDS: LIPASE/PROTEASE/AMYLASE 36,000 UNIT CAPSULE PO SCH ×3 (08:15→17:39)
[2018-11-05 08:18] LABS: ALBUMIN 3.2 g/dl (3.4-5.0); BILIRUBIN,TOTAL 0.4 mg/dL (0.2-1); BLOOD UREA NITROGEN 63.5 mg/dL (7-18); CALCIUM 9.2 mg/dL (8.5-10.1); CREATININE 2.3 mg/dL (0.55-1.3); POTASSIUM 3.9 mmol/L (3.5-5.1); TOT PROT 7.1 g/dl (6.4-8.2)
[2018-11-05] MEDS: APIXABAN 2.5 MG TABLET PO SCH ×2 (09:54→21:48)
[2018-11-05] MEDS: FUROSEMIDE 40 MG/4 ML INJECTABLE VIAL IVPUSH SCH (09:54)
[2018-11-05] MEDS: amLODIPine BESYLATE 5 MG TABLET (FP) PO SCH (09:55)
[2018-11-05] MEDS: metoPROLOL SUCCINATE 25 MG TAB.SR.24H (FP) PO SCH ×2 (09:55→21:48)
[2018-11-05] MEDS: FERROUS SO4 325 MG TABLET (FP) PO SCH (09:55)
[2018-11-05] MEDS: PANTOPRAZOLE 40 MG TABLET (FP) PO SCH (09:55)
[2018-11-05] MEDS: FLUTICASONE/SALMETEROL 100 MCG/50 MCG DISKUS IH SCH ×2 (09:57→21:48)
[2018-11-05] MEDS: TIOTROPIUM BROMIDE 2.5 MCG (SPIRIVA) RESPIMAT INHALER IH SCH (09:58)
[2018-11-05 10:18] LABS: ANISOCYTOSIS 0; MACROCYTOSIS 0; PLATELET ESTIMATE NORMAL
[2018-11-05] MEDS: AZITHROMYCIN IVPB 500 MG/250 ML BAG IVPB SCH (10:34)
--- NOTE | 2018-11-05 11:36 | PN ---
Progress Note, Physician History of Present Illness: Pt seen and examined at bedside. She is awake and alert. She feels that her breathing is improving. She denies dysuria. - Current Medication List Current Medications: Active Medications Albuterol/Ipratropium (Duoneb -) 1 amp NEB Q6H PRN PRN Reason: SHORTNESS OF BREATH Last Admin: 11/04/18 11:35 Dose: 1 amp Amlodipine Besylate (Norvasc -) 5 mg PO DAILY [facility] Last Admin: 11/05/18 09:55 Dose: 5 mg Apixaban (Eliquis -) 2.5 mg PO BID [facility] Last Admin: 11/05/18 09:54 Dose: 2.5 mg Atorvastatin Calcium (Lipitor -) 20 mg PO HS [facility] Last Admin: 11/04/18 21:39 Dose: 20 mg Ergocalciferol (Drisdol -) 50,000 unit PO Q7D [facility] Last Admin: 11/03/18 15:57 Dose: 50,000 unit Ferrous Sulfate (Feosol -) 325 mg PO DAILY [facility] Last Admin: 11/05/18 09:55 Dose: 325 mg Furosemide (Lasix Injection -) 40 mg IVPUSH DAILY [facility] Last Admin: 11/05/18 09:54 Dose: 40 mg Azithromycin (Zithromax 500mg Ivpb (Pre-Docked)) 500 mg in 250 mls @ 250 mls/ hr IVPB DAILY [facility] Last Admin: 11/05/18 10:34 Dose: 250 mls/hr Insulin Aspart (Novolog Vial Sliding Scale -) 1 vial SQ ACHS [facility]; Protocol Last Admin: 11/05/18 06:04 Dose: 2 units Methylprednisolone Sodium Succinate (Solu-Medrol -) 60 mg IVPB Q6H-IV [facility] Last Admin: 11/05/18 09:54 Dose: 60 mg Metoprolol Succinate (Toprol Xl -) 25 mg PO BID [facility] Last Admin: 11/05/18 09:55 Dose: 25 mg Pancrelipase (Cre[place] Dr 36,000 Units Capsule) 1 cap PO TIDCM [facility] Last Admin: 11/05/18 08:15 Dose: Not Given Pantoprazole Sodium (Protonix -) 40 mg PO DAILY [facility] Last Admin: 11/05/18 09:55 Dose: 40 mg Fluticasone/Salmeterol (Advair 100mcg/50mcg -) 1 puff IH BID [facility] Last Admin: 11/05/18 09:57 Dose: 1 puff Tiotropium [place] (Spiriva Respimat) 2 puff IH DAILY [facility] Last Admin: 11/05/18 09:58 Dose: 2 puff - Objective Vital Signs: Vital Signs Temperature 98 F 11/05/18 09:00 Pulse Rate 76 11/05/18 09:00 Respiratory Rate 18 11/05/18 09:00 Blood Pressure 127/86 11/05/18 09:00 O2 Sat by Pulse Oximetry (%) 97 11/04/18 21:00 Constitutional: Yes: Calm Eyes: Yes: Conjunctiva Clear HENT: Yes: Atraumatic Neck: Yes: Supple Cardiovascular: Yes: S1, S2 Respiratory: Yes: CTA Bilaterally Gastrointestinal: Yes: Soft Genitourinary: Yes: WNL Musculoskeletal: Yes: WNL Edema: Yes Edema: LLE: 1+, RLE: 1+ Neurological: Yes: Oriented Psychiatric: Yes: Oriented Labs: CBC, BMP 11/05/18 06:30 11/05/18 06:30 INR, PTT INR 1.13 (0.83-1.09) H 11/02/18 22:30 Assessment/Plan Current Medications Generic Name Dose Route Start Last Admin Trade Name Freq PRN Reason Stop Dose Admin Albuterol/Ipratropium 1 amp 11/03/18 00:58 11/04/18 11:35 Duoneb - NEB 1 amp Q6H PRN Administration SHORTNESS OF BREATH Amlodipine Besylate 5 mg 11/03/18 10:00 11/05/18 09:55 Norvasc - PO 5 mg DAILY [facility] Administration Apixaban 2.5 mg 11/03/18 01:15 11/05/18 09:54 Eliquis - PO 2.5 mg BID [facility] Administration Atorvastatin Calcium 20 mg 11/03/18 22:00 11/04/18 21:39 Lipitor - PO 20 mg HS [facility] Administration Ergocalciferol 50,000 unit 11/03/18 15:30 11/03/18 15:57 Drisdol - PO 50,000 unit Q7D [facility] Administration Ferrous Sulfate 325 mg 11/04/18 10:00 11/05/18 09:55 Feosol - PO 325 mg DAILY [facility] Administration Furosemide 40 mg 11/04/18 10:00 11/05/18 09:54 Lasix Injection - IVPUSH 40 mg DAILY [facility] Administration Azithromycin 500 mg in 250 mls @ 250 mls/hr 11/04/18 10:00 11/05/18 10:34 Zithromax 500mg Ivpb (Pre-Docked) IVPB 250 mls/hr DAILY [facility] Administration Insulin Aspart 1 vial 11/03/18 16:30 11/05/18 06:04 Novolog Vial Sliding Scale - SQ 2 units ACHS [facility] Administration Protocol Methylprednisolone Sodium Succinate 60 mg 11/03/18 03:00 11/05/18 09:54 Solu-Medrol - IVPB 60 mg Q6H-IV [facility] Administration Metoprolol Succinate 25 mg 11/03/18 01:15 11/05/18 09:55 Toprol Xl - PO 25 mg BID [facility] Administration Pancrelipase 1 cap 11/03/18 17:30 11/05/18 08:[address] 36,000 Units Capsule PO Not Given TIDCM [facility] Pantoprazole Sodium 40 mg 11/03/18 10:00 11/05/18 09:55 Protonix - PO 40 mg DAILY [facility] Administration Fluticasone/Salmeterol 1 puff 11/03/18 22:00 11/05/18 09:57 Advair 100mcg/50mcg - IH 1 puff BID [facility] Administration Tiotropium [place] 2 puff 11/04/18 10:00 11/05/18 09:58 Spiriva Respimat IH 2 puff DAILY [facility] Administration Impression 1. CKD 2. PAULA 3. COPD 4. asthma 5. dyspnea 6. HTN 7. a-fib 8. CHF 9. 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
--- NOTE | 2018-11-05 11:38 | PN ---
Progress Note, Physician History of Present Illness: pulmonary alert,feeling better,less dyspneic,still episode of hypoxemia on nasal cannula 3L,-cp - Current Medication List Current Medications: Active Medications Albuterol/Ipratropium (Duoneb -) 1 amp NEB Q6H PRN PRN Reason: SHORTNESS OF BREATH Last Admin: 11/04/18 11:35 Dose: 1 amp Amlodipine Besylate (Norvasc -) 5 mg PO DAILY [facility] Last Admin: 11/05/18 09:55 Dose: 5 mg Apixaban (Eliquis -) 2.5 mg PO BID [facility] Last Admin: 11/05/18 09:54 Dose: 2.5 mg Atorvastatin Calcium (Lipitor -) 20 mg PO HS [facility] Last Admin: 11/04/18 21:39 Dose: 20 mg Ergocalciferol (Drisdol -) 50,000 unit PO Q7D [facility] Last Admin: 11/03/18 15:57 Dose: 50,000 unit Ferrous Sulfate (Feosol -) 325 mg PO DAILY [facility] Last Admin: 11/05/18 09:55 Dose: 325 mg Furosemide (Lasix Injection -) 40 mg IVPUSH DAILY [facility] Last Admin: 11/05/18 09:54 Dose: 40 mg Azithromycin (Zithromax 500mg Ivpb (Pre-Docked)) 500 mg in 250 mls @ 250 mls/ hr IVPB DAILY [facility] Last Admin: 11/05/18 10:34 Dose: 250 mls/hr Insulin Aspart (Novolog Vial Sliding Scale -) 1 vial SQ ACHS [facility]; Protocol Last Admin: 11/05/18 06:04 Dose: 2 units Methylprednisolone Sodium Succinate (Solu-Medrol -) 60 mg IVPB Q6H-IV [facility] Last Admin: 11/05/18 09:54 Dose: 60 mg Metoprolol Succinate (Toprol Xl -) 25 mg PO BID [facility] Last Admin: 11/05/18 09:55 Dose: 25 mg Pancrelipase (Creon Dr 36,000 Units Capsule) 1 cap PO TIDCM [facility] Last Admin: 11/05/18 08:15 Dose: Not Given Pantoprazole Sodium (Protonix -) 40 mg PO DAILY [facility] Last Admin: 11/05/18 09:55 Dose: 40 mg Fluticasone/Salmeterol (Advair 100mcg/50mcg -) 1 puff IH BID [facility] Last Admin: 11/05/18 09:57 Dose: 1 puff Tiotropium [place] (Spiriva Respimat) 2 puff IH DAILY [facility] Last Admin: 11/05/18 09:58 Dose: 2 puff - Objective Vital Signs: Vital Signs Temperature 98 F 11/05/18 09:00 Pulse Rate 76 11/05/18 09:00 Respiratory Rate 18 11/05/18 09:00 Blood Pressure 127/86 11/05/18 09:00 O2 Sat by Pulse Oximetry (%) 97 11/04/18 21:00 Constitutional: Yes: Well Nourished, Calm Eyes: Yes: WNL HENT: Yes: WNL Neck: Yes: WNL Cardiovascular: Yes: Pulse Irregular, S1, S2 Respiratory: Yes: Rhonchi (few scattered rhonchi) Extremities: Yes: WNL Edema: No Labs: CBC, BMP 11/05/18 06:30 11/05/18 06:30 INR, PTT INR 1.13 (0.83-1.09) H 11/02/18 22:30 Problem List - Problems (1) Sleep apnea Code(s): G47.30 - SLEEP APNEA, UNSPECIFIED (2) Acute electrocardiogram changes Code(s): R94.31 - ABNORMAL ELECTROCARDIOGRAM [ECG] [EKG] (3) COPD exacerbation Code(s): J44.1 - CHRONIC OBSTRUCTIVE PULMONARY DISEASE W (ACUTE) EXACERBATION (4) Chest pain Code(s): R07.9 - CHEST PAIN, UNSPECIFIED (5) CHF (congestive heart failure) Code(s): I50.9 - HEART FAILURE, UNSPECIFIED (6) History of atrial fibrillation Code(s): Z86.79 - PERSONAL HISTORY OF OTHER DISEASES OF THE CIRCULATORY SYSTEM (7) Pulmonary HTN Code(s): I27.20 - PULMONARY HYPERTENSION, UNSPECIFIED (8) Acute on chronic respiratory failure with hypoxia and hypercapnia Code(s): J96.21 - ACUTE AND CHRONIC RESPIRATORY FAILURE WITH HYPOXIA; J96.22 - ACUTE AND CHRONIC RESPIRATORY FAILURE WITH HYPERCAPNIA Assessment/Plan IMP ACUTE ON CHRONIC HYPOXEMIC/HYPERCAPNEIC RESPIRATORY FAILURE COPD EXACERBATION LIKELY UNDERLYING ILD AFIB S/P PPM GERD HLD HTN SEVERE PULMONARY HTN OSAS MODERATE RESPONDED WELL TO BIPAP IPAP11 EPAP 7 CKD PLAN O2 MEDROL TAPER INHALED BRONCHODILATORS NIPPV IF PT DEVELOPES INCREASED RESPIRATORY DISTRESS BIPAP IPAP 11 EPAP 7 AT NIGHT IF PT COMPLIES PT WOULD BE A GOOD CANDIDATE FOR HOME TRILOGY DEVICE WILL DISCUSS WITH PT AND DAUGHTER CAPRI HORTON Problem List - Problems (1) Sleep apnea Code(s): G47.30 - SLEEP APNEA, UNSPECIFIED (2) Acute electrocardiogram changes Code(s): R94.31 - ABNORMAL ELECTROCARDIOGRAM [ECG] [EKG] (3) COPD exacerbation Code(s): J44.1 - CHRONIC OBSTRUCTIVE PULMONARY DISEASE W (ACUTE) EXACERBATION (4) Chest pain Code(s): R07.9 - CHEST PAIN, UNSPECIFIED (5) CHF (congestive heart failure) Code(s): I50.9 - HEART FAILURE, UNSPECIFIED (6) History of atrial fibrillation Code(s): Z86.79 - PERSONAL HISTORY OF OTHER DISEASES OF THE CIRCULATORY SYSTEM (7) Pulmonary HTN Code(s): I27.20 - PULMONARY HYPERTENSION, UNSPECIFIED (8) Acute on chronic respiratory failure with hypoxia and hypercapnia Code(s): J96.21 - ACUTE AND CHRONIC RESPIRATORY FAILURE WITH HYPOXIA; J96.22 - ACUTE AND CHRONIC RESPIRATORY FAILURE WITH HYPERCAPNIA
--- NOTE | 2018-11-05 13:53 | PN ---
Teaching Attending Note Name of Resident: Iliana Steele ATTENDING PHYSICIAN STATEMENT I saw and evaluated the patient. I reviewed the resident's note and discussed the case with the resident. I agree with the resident's findings and plan as documented. SUBJECTIVE: Feeling better - much less dyspneic. Still refusing BiPAP. OBJECTIVE: Afebrile, Hemodynamically Stable. Last Vital Signs Temp Pulse Resp BP Pulse Ox 98 F 76 18 127/86 97 11/05/18 09:00 11/05/18 09:00 11/05/18 09:00 11/05/18 09:00 11/04/18 21:00 Heart - S1, S2, soft SM Lungs - bibasal fine crackles, reduced air entry globally Abdomen - soft, non-tender. Bowel Sounds normal. Extremities - no edema, no calf tenderness. Laboratory Results - last 24 hr 11/04/18 11/04/18 11/05/18 17:28 22:14 05:42 WBC RBC Hgb Hct MCV MCH MCHC RDW Plt Count MPV Absolute Neuts (auto) Neutrophils % Neutrophils % (Manual) Band Neutrophils % Lymphocytes % Lymphocytes % (Manual) Monocytes % Monocytes % (Manual) Eosinophils % Eosinophils % (Manual) Basophils % Basophils % (Manual) Myelocytes % (Man) Promyelocytes % (Man) Blast Cells % (Manual) Nucleated RBC % Metamyelocytes Hypochromia Platelet Estimate Polychromasia Poikilocytosis Anisocytosis Microcytosis Macrocytosis Stomatocytes Sodium Potassium Chloride Carbon Dioxide Anion Gap BUN Creatinine Est GFR (CKD-EPI)AfAm Est GFR (CKD-EPI)NonAf POC Glucometer 174 189 151 Random Glucose Calcium Total Bilirubin AST ALT Alkaline Phosphatase Total Protein Albumin 11/05/18 11/05/18 11/05/18 06:30 06:30 11:51 WBC 11.9 H RBC 4.22 Hgb 11.6 Hct 36.7 MCV 87.0 MCH 27.4 MCHC 31.5 L RDW 15.3 Plt Count 281 MPV 8.7 Absolute Neuts (auto) 11.4 H Neutrophils % 95.8 H Neutrophils % (Manual) 96.0 H Band Neutrophils % 0.0 Lymphocytes % 2.3 L D Lymphocytes % (Manual) 4.0 L D Monocytes % 1.7 L Monocytes % (Manual) 0 L D Eosinophils % 0.0 Eosinophils % (Manual) 0.0 Basophils % 0.2 Basophils % (Manual) 0.0 Myelocytes % (Man) 0 Promyelocytes % (Man) 0 Blast Cells % (Manual) 0 Nucleated RBC % 0 Metamyelocytes 0 Hypochromia 0 Platelet Estimate Normal Polychromasia 1+ Poikilocytosis 1+ Anisocytosis 0 Microcytosis 0 Macrocytosis 0 Stomatocytes 1+ Sodium 140 Potassium 3.9 Chloride 101 Carbon Dioxide 31 Anion Gap 8 BUN 63.5 H Creatinine 2.3 H Est GFR (CKD-EPI)AfAm 21.58 Est GFR (CKD-EPI)NonAf 18.62 POC Glucometer 242 Random Glucose 139 H Calcium 9.2 Total Bilirubin 0.4 AST 24 ALT 14 Alkaline Phosphatase 112 Total Protein 7.1 Albumin 3.2 L Current Medications Generic Name Dose Route Start Last Admin Trade Name Freq PRN Reason Stop Dose Admin Albuterol/Ipratropium 1 amp 11/03/18 00:58 11/04/18 11:35 Duoneb - NEB 1 amp Q6H PRN Administration SHORTNESS OF BREATH Amlodipine Besylate 5 mg 11/03/18 10:00 11/05/18 09:55 Norvasc - PO 5 mg DAILY [facility] Administration Apixaban 2.5 mg 11/03/18 01:15 11/05/18 09:54 Eliquis - PO 2.5 mg BID [facility] Administration Atorvastatin Calcium 20 mg 11/03/18 22:00 11/04/18 21:39 Lipitor - PO 20 mg HS [facility] Administration Ergocalciferol 50,000 unit 11/03/18 15:30 11/03/18 15:57 Drisdol - PO 50,000 unit Q7D [facility] Administration Ferrous Sulfate 325 mg 11/04/18 10:00 11/05/18 09:55 Feosol - PO 325 mg DAILY [facility] Administration Furosemide 40 mg 11/04/18 10:00 11/05/18 09:54 Lasix Injection - IVPUSH 40 mg DAILY [facility] Administration Azithromycin 500 mg in 250 mls @ 250 mls/hr 11/04/18 10:00 11/05/18 10:34 Zithromax 500mg Ivpb (Pre-Docked) IVPB 250 mls/hr DAILY [facility] Administration Insulin Aspart 1 vial 11/03/18 16:30 11/05/18 12:14 Novolog Vial Sliding Scale - SQ 4 units ACHS [facility] Administration Protocol Methylprednisolone Sodium Succinate 40 mg 11/05/18 18:00 Solu-Medrol - IVPB Q8H-IV [facility] Metoprolol Succinate 25 mg 11/03/18 01:15 11/05/18 09:55 Toprol Xl - PO 25 mg BID [facility] Administration Pancrelipase 1 cap 11/03/18 17:30 11/05/18 12:14 [place] 36,000 Units Capsule PO Not Given TIDCM [facility] Pantoprazole Sodium 40 mg 11/03/18 10:00 11/05/18 09:55 Protonix - PO 40 mg DAILY [facility] Administration Fluticasone/Salmeterol 1 puff 11/03/18 22:00 11/05/18 09:57 Advair 100mcg/50mcg - IH 1 puff BID [facility] Administration Tiotropium [place] 2 puff 11/04/18 10:00 11/05/18 09:58 Spiriva Respimat IH 2 puff DAILY [facility] Administration ASSESSMENT/PLAN: 88 year old female with CRF sec to COPD (on 2L O2 via NC at home), Chronic Diastolic CHF, HTN, Atrial Fibrillation on Eliquis, and HLD, presented with progressively worsening dyspnea on exertion and found to be hypoxic in the ER. 1. Acute on Chronic hypoxic/hypercapneic respiratory failure secondary to: A. Acute Exacerbation COPD Oxygen saturations much better on 2L via NC. Hx GLORIA - Refuses BiPAP. Will transition from IV Solumedrol to oral Prednisone. Continue Azithromycin, Bronchodilator Nebs. Continue Spiriva, Advair Pulmonary consulted - recommend Trilogy given non-compliance with BiPAP - pulmonary to arrange. B. Acute on Chronic Diastolic CHF with moderate Aortic Stenosis CXR - congestive changes, R sided effusion. Echo - normal EF, mild to moderate , Grade II Diastolic dysfunction. Continue IV Lasix diuresis. Daily I/Os, Weights Cardiology follow up as out-patient. 2. PAULA on CKD 3 - resolved, Creat currently at baseline 2.3. Lasix continued. Nephrology following. 3. HTN - continue Toprol XL and Norvasc. 4. Atrial Fibrillation - continue Toprol XL and Eliquis. 5. HLD - Continue Statin. DVT Px - on Eliquis. GI Px - Protonix
[2018-11-05] MEDS ORDERED: predniSONE 20 MG TABLET (UD) PO ONE (13:54)
--- NOTE | 2018-11-05 14:12 | PN ---
Physical Exam: SUBJECTIVE: Patient seen and examined today. She is walking around on nasal cannula 2L with some desaturations, lowest 81% overnight. Currently satting at 97%. Still refusing BIPAP but is amenable to a Trilogy machine recommended by pulm. OBJECTIVE: Vital Signs Period Temp Pulse Resp BP Sys/Perez Pulse Ox Last 24 Hr 97.3 F-98.6 F 62-76 18-20 125-152/55-86 95-97 GENERAL: AOx3 HEENT: NC in place LUNGS: Incr work of breathing. Coarse breath sounds b/l HEART: RRR. S1S1 heard. No murmurs appreciated ABDOMEN: Soft, nontender, nondistended, + bowel sounds EXTREMITIES: No edema noted SKIN: No rashes or dry skin Laboratory Results - last 24 hr Laboratory Last Values WBC 11.9 K/mm3 (4.0-10.0) H 11/05/18 06:30 RBC 4.22 M/mm3 (3.60-5.2) 11/05/18 06:30 Hgb 11.6 GM/dL (10.7-15.3) 11/05/18 06:30 Hct 36.7 % (32.4-45.2) 11/05/18 06:30 MCV 87.0 fl (80-96) 11/05/18 06:30 MCH 27.4 pg (25.7-33.7) 11/05/18 06:30 MCHC 31.5 g/dl (32.0-36.0) L 11/05/18 06:30 RDW 15.3 % (11.6-15.6) 11/05/18 06:30 Plt Count 281 K/MM3 (134-434) 11/05/18 06:30 MPV 8.7 fl (7.5-11.1) 11/05/18 06:30 Absolute Neuts (auto) 11.4 K/mm3 (1.5-8.0) H 11/05/18 06:30 Neutrophils % 95.8 % (42.8-82.8) H 11/05/18 06:30 Neutrophils % (Manual) 96.0 % (42.8-82.8) H 11/05/18 06:30 Band Neutrophils % 0.0 % 11/05/18 06:30 Lymphocytes % 2.3 % (8-40) L D 11/05/18 06:30 Lymphocytes % (Manual) 4.0 % (8-40) L D 11/05/18 06:30 Monocytes % 1.7 % (3.8-10.2) L 11/05/18 06:30 Monocytes % (Manual) 0 % (3.8-10.2) L D 11/05/18 06:30 Eosinophils % 0.0 % (0-4.5) 11/05/18 06:30 Eosinophils % (Manual) 0.0 % (0-4.5) 11/05/18 06:30 Basophils % 0.2 % (0-2.0) 11/05/18 06:30 Basophils % (Manual) 0.0 % (0-2.0) 11/05/18 06:30 Myelocytes % (Man) 0 % (0-2) 11/05/18 06:30 Promyelocytes % (Man) 0 % (0-2) 11/05/18 06:30 Blast Cells % (Manual) 0 % (0-0) 11/05/18 06:30 Nucleated RBC % 0 % (0-0) 11/05/18 06:30 Metamyelocytes 0 % (0-2) 11/05/18 06:30 Hypochromia 0 11/05/18 06:30 Platelet Estimate Normal 11/05/18 06:30 Polychromasia 1+ 11/05/18 06:30 Poikilocytosis 1+ 11/05/18 06:30 Anisocytosis 0 11/05/18 06:30 Microcytosis 0 11/05/18 06:30 Macrocytosis 0 11/05/18 06:30 Spherocytes 1+ 11/03/18 06:30 Target Cells 1+ 11/03/18 06:30 Stomatocytes 1+ 11/05/18 06:30 Acanthocytes (Spur) 1+ 11/03/18 06:30 PT with INR 13.30 SEC (9.7-13.0) H 11/02/18 22:30 INR 1.13 (0.83-1.09) H 11/02/18 22:30 PTT (Actin FS) 35.6 SECONDS (25.2-36.5) 11/02/18 22:30 Anticoagulation Therapy No Result Required. 11/02/18 21:53 Puncture Site No Result Required. 11/02/18 21:53 ABG pH 7.30 (7.35-7.45) L 11/02/18 21:53 ABG pCO2 at Pt Temp 62.7 mmHg (35-45) H 11/02/18 21:53 ABG pO2 at Pt Temp 190 mmHg (80-105) H 11/02/18 21:53 ABG HCO3 29.9 mmol/L (22-27) H 11/02/18 21:53 ABG O2 Sat (Measured) 99.6 % (95-98) H 11/02/18 21:53 ABG O2 Content 16.9 % vol (15-22) 11/02/18 21:53 ABG Base Excess 2.6 meq/l (-2-2) H 11/02/18 21:53 Ankit Test No Result Required. 11/02/18 21:53 Carboxyhemoglobin 1.2 % (0-2) 11/02/18 21:53 Methemoglobin 0.3 % (0-2) 11/02/18 21:53 O2 Delivery Device No Result Required. 11/02/18 21:53 Oxygen Flow Rate No Result Required. 11/02/18 21:53 Vent Mode No Result Required. 11/02/18 21:53 Vent Rate No Result Required. 11/02/18 21:53 Mechanical Rate No Result Required. 11/02/18 21:53 Pressure Support Vent No Result Required. 11/02/18 21:53 Sodium 140 mmol/L (136-145) 11/05/18 06:30 Potassium 3.9 mmol/L (3.5-5.1) 11/05/18 06:30 Chloride 101 mmol/L (98-107) 11/05/18 06:30 Carbon Dioxide 31 mmol/L (21-32) 11/05/18 06:30 Anion Gap 8 MMOL/L (8-16) 11/05/18 06:30 BUN 63.5 mg/dL (7-18) H 11/05/18 06:30 Creatinine 2.3 mg/dL (0.55-1.3) H 11/05/18 06:30 Est GFR (CKD-EPI)AfAm 21.58 11/05/18 06:30 Est GFR (CKD-EPI)NonAf 18.62 11/05/18 06:30 POC Glucometer 242 UNITS (80-120) 11/05/18 11:51 Random Glucose 139 mg/dL (74-106) H 11/05/18 06:30 Hemoglobin A1c % 6.5 % (4.2-6.3) H 11/04/18 06:00 Calcium 9.2 mg/dL (8.5-10.1) 11/05/18 06:30 Phosphorus 4.6 mg/dL (2.5-4.9) 11/03/18 06:30 Magnesium 2.3 mg/dL (1.8-2.4) 11/03/18 06:30 Total Bilirubin 0.4 mg/dL (0.2-1) 11/05/18 06:30 AST 24 U/L (15-37) 11/05/18 06:30 ALT 14 U/L (13-61) 11/05/18 06:30 Alkaline Phosphatase 112 U/L (45-117) 11/05/18 06:30 Troponin I < 0.02 ng/ml (0.00-0.05) 11/03/18 06:30 B-Natriuretic Peptide 1841.8 pg/ml (5-450) H 11/02/18 21:53 Total Protein 7.1 g/dl (6.4-8.2) 11/05/18 06:30 Albumin 3.2 g/dl (3.4-5.0) L 11/05/18 06:30 Triglycerides 73 mg/dL (0-150) 11/03/18 06:30 Cholesterol 115 mg/dL (50-200) 11/03/18 06:30 Total LDL Cholesterol 60 mg/dL (5-100) 11/03/18 06:30 HDL Cholesterol 41 mg/dL (40-60) 11/03/18 06:30 Urine Color Yellow 11/03/18 01:35 Urine Appearance Clear 11/03/18 01:35 Urine pH 6.0 (5.0-8.0) 11/03/18 01:35 Ur Specific Nelson 1.011 (1.010-1.035) 11/03/18 01:35 Urine Protein 2+ (NEGATIVE) H 11/03/18 01:35 Urine Glucose (UA) Negative (NEGATIVE) 11/03/18 01:35 Urine Ketones Negative (NEGATIVE) 11/03/18 01:35 Urine Blood Negative (NEGATIVE) 11/03/18 01:35 Urine Nitrite Negative (NEGATIVE) 11/03/18 01:35 Urine Bilirubin Negative (NEGATIVE) 11/03/18 01:35 Urine Urobilinogen 0.2 mg/dL (0.2-1.0) 11/03/18 01:35 Ur Leukocyte Esterase Negative (NEGATIVE) 11/03/18 01:35 Urine WBC (Auto) 1 /hpf (0-5) 11/03/18 01:35 Urine RBC (Auto) 1 /hpf (0-4) 11/03/18 01:35 Urine Casts (Auto) 0 /lpf (0-8) 11/03/18 01:35 U Epithel Cells (Auto) 1.4 /HPF (0-5/HPF) 11/03/18 01:35 Urine Bacteria (Auto) 7.1 /hpf (NEGATIVE) 11/03/18 01:35 Ur Random Creatinine 66.0 mg/dL (30-150) 11/03/18 01:35 Ur Random Sodium 37 MMOL/L (40-220) L 11/03/18 01:35 Ur Random Potassium 23.0 MMOL/L (25-125) L 11/03/18 01:35 Ur Random Chloride 26 MMOL/L (110-250) L 11/03/18 01:35 Active Medications Generic Name Dose Route Start Last Admin Trade Name Freq PRN Reason Stop Dose Admin Albuterol/Ipratropium 1 amp 11/03/18 00:58 11/04/18 11:35 Duoneb - NEB 1 amp Q6H PRN Administration SHORTNESS OF BREATH Amlodipine Besylate 5 mg 11/03/18 10:00 11/05/18 09:55 Norvasc - PO 5 mg DAILY [facility] Administration Apixaban 2.5 mg 11/03/18 01:15 11/05/18 09:54 Eliquis - PO 2.5 mg BID [facility] Administration Atorvastatin Calcium 20 mg 11/03/18 22:00 11/04/18 21:39 Lipitor - PO 20 mg HS [facility] Administration Ergocalciferol 50,000 unit 11/03/18 15:30 11/03/18 15:57 Drisdol - PO 50,000 unit Q7D [facility] Administration Ferrous Sulfate 325 mg 11/04/18 10:00 11/05/18 09:55 Feosol - PO 325 mg DAILY [facility] Administration Furosemide 40 mg 11/04/18 10:00 11/05/18 09:54 Lasix Injection - IVPUSH 40 mg DAILY KESHAWN Administration Azithromycin 500 mg in 250 mls @ 250 mls/hr 11/04/18 10:00 11/05/18 10:34 Zithromax 500mg Ivpb (Pre-Docked) IVPB 250 mls/hr DAILY KESHAWN Administration Insulin Aspart 1 vial 11/03/18 16:30 11/05/18 12:14 Novolog Vial Sliding Scale - SQ 4 units ACHS KESHAWN Administration Protocol Metoprolol Succinate 25 mg 11/03/18 01:15 11/05/18 09:55 Toprol Xl - PO 25 mg BID KESHAWN Administration Pancrelipase 1 cap 11/03/18 17:30 11/05/18 12:14 Crealissa Mcgee 36,000 Units Capsule PO Not Given TIDCM KESHAWN Pantoprazole Sodium 40 mg 11/03/18 10:00 11/05/18 09:55 Protonix - PO 40 mg DAILY KESHAWN Administration Prednisone 60 mg 11/05/18 13:54 Deltasone - PO 11/05/18 13:55 ONCE ONE Prednisone 40 mg 11/06/18 10:00 Deltasone - PO DAILY KESHAWN Fluticasone/Salmeterol 1 puff 11/03/18 22:00 11/05/18 09:57 Advair 100mcg/50mcg - IH 1 puff BID KESHAWN Administration Tiotropium [place] 2 puff 11/04/18 10:00 11/05/18 09:58 Spiriva Respimat IH 2 puff DAILY KESHAWN Administration ASSESSMENT/PLAN: 88 y.o. F w/ PMH HTN, HLD, COPD/ asthma on home O2 (3-4L), GERD, GLORIA, afib on Eloquis, double lead pacemaker presenting with acute on chronic respiratory failure and resp acidosis likely 2/2 to COPD & CHF. Pt continues to have nonproductive cough. Continues to have desaturations when off nasal cannula. BIPAP has been ruled ineffective due to patients acute on chronic respiratory failure as a consequence of COPD. Patient will require non-invasive home ventilator to help decrease work of breathing and improve pulmonary status. If left untreated, may cause harm to patient or . #Acute on Chronic hypoxic/hypercapneic respiratory failure 2/2 COPD +/- ILD -O2 sats improving on 2L NC -Pt refuses BIPAP #Acute COPD exacerbation -O2 Sats improving -Pt refusing BIPAP; Pulmonary recommends trilogy as alternative -Changing IV solumedrol to PO prednisone -C/w Azithromycin, bronchodilator Nebs, Spiriva, Advair #Acute on chronic diastolic CHF -Echo 11/03: Normal EF. Grade II diastolic dysfunction. Mild annular calcifications. Mild MR, TR, aortic valve thickening, mild-mod valvular . PAH is min 44mmHg. -CXR 11/02: congestive changes, rt pl eff -C/w Lasix -Outpatient Cardio f/i #PAULA on CKD 3 -Resolved #HTN -C/w amlodipine, metorpolol succinate #HLD -C/w Simvastatin #GERD -Protonix #DVT PPX -Apixaban 2.5 PO BID #Dispo Home Visit type - Emergency Visit Emergency Visit: No - New Patient This patient is new to me today: No - Critical Care Critical Care patient: No
[2018-11-05] MEDS ORDERED: methylPREDNISolone NA SUCC 40 MG/1 ML VIAL IVPB SCH (18:00)
[2018-11-05] MEDS: ATORVASTATIN CA 20 MG TABLET (FP) PO SCH (21:48)
[2018-11-06] MEDS: INSULIN SLIDING SCALE (NOVOLOG) 1 VIAL SQ SCH ×2 (06:05→11:58)
[2018-11-06 07:54] LABS: EOS % 0.1 % (0-4.5); HEMATOCRIT 35.5 % (32.4-45.2); HEMOGLOBIN 11.2 GM/dL (10.7-15.3); LYMPH % 2.6 % (8-40); MCH 27.5 pg (25.7-33.7); MCHC 31.7 g/dl (32.0-36.0); MEAN CELL VOLUME 86.7 fl (80-96); MEAN PLT VOLUME 8.6 fl (7.5-11.1); NEUT % 90.3 % (42.8-82.8); RBC 4.09 M/mm3 (3.60-5.2); WHITE BLOOD COUNT 9.8 K/mm3 (4.0-10.0)
[2018-11-06 08:35] LABS: PLATELET COUNT 248 K/MM3 (134-434)
[2018-11-06 08:38] LABS: BILIRUBIN,TOTAL 0.3 mg/dL (0.2-1); CALCIUM 9.2 mg/dL (8.5-10.1); CREATININE 2.3 mg/dL (0.55-1.3); POTASSIUM 3.4 mmol/L (3.5-5.1); TOT PROT 6.6 g/dl (6.4-8.2)
--- NOTE | 2018-11-06 09:01 | PN ---
Progress Note, Physician History of Present Illness: pulmonary alert,comfortable no distress,o2 sat 94% on 2LNC - Current Medication List Current Medications: Active Medications Albuterol/Ipratropium (Duoneb -) 1 amp NEB Q6H PRN PRN Reason: SHORTNESS OF BREATH Last Admin: 11/04/18 11:35 Dose: 1 amp Amlodipine Besylate (Norvasc -) 5 mg PO DAILY [facility] Last Admin: 11/05/18 09:55 Dose: 5 mg Apixaban (Eliquis -) 2.5 mg PO BID [facility] Last Admin: 11/05/18 21:48 Dose: 2.5 mg Atorvastatin Calcium (Lipitor -) 20 mg PO HS [facility] Last Admin: 11/05/18 21:48 Dose: 20 mg Ergocalciferol (Drisdol -) 50,000 unit PO Q7D [facility] Last Admin: 11/03/18 15:57 Dose: 50,000 unit Ferrous Sulfate (Feosol -) 325 mg PO DAILY [facility] Last Admin: 11/05/18 09:55 Dose: 325 mg Furosemide (Lasix -) 40 mg PO DAILY [facility] Azithromycin (Zithromax 500mg Ivpb (Pre-Docked)) 500 mg in 250 mls @ 250 mls/ hr IVPB DAILY [facility] Last Admin: 11/05/18 10:34 Dose: 250 mls/hr Insulin Aspart (Novolog Vial Sliding Scale -) 1 vial SQ ACHS [facility]; Protocol Last Admin: 11/06/18 06:05 Dose: 2 units Metoprolol Succinate (Toprol Xl -) 25 mg PO BID [facility] Last Admin: 11/05/18 21:48 Dose: 25 mg Pancrelipase (Creon Dr 36,000 Units Capsule) 1 cap PO TIDCM [facility] Last Admin: 11/05/18 17:39 Dose: 1 cap Pantoprazole Sodium (Protonix -) 40 mg PO DAILY [facility] Last Admin: 11/05/18 09:55 Dose: 40 mg Prednisone (Deltasone -) 40 mg PO DAILY [facility] Fluticasone/Salmeterol (Advair 100mcg/50mcg -) 1 puff IH BID [facility] Last Admin: 11/05/18 21:48 Dose: 1 puff Tiotropium [place] (Spiriva Respimat) 2 puff IH DAILY [facility] Last Admin: 11/05/18 09:58 Dose: 2 puff - Objective Vital Signs: Vital Signs Temperature 97.8 F 11/06/18 05:00 Pulse Rate 76 11/06/18 05:00 Respiratory Rate 20 11/06/18 05:00 Blood Pressure 142/72 11/06/18 05:00 O2 Sat by Pulse Oximetry (%) 92 L 11/05/18 21:00 Constitutional: Yes: Well Nourished, Calm Eyes: Yes: WNL HENT: Yes: WNL Neck: Yes: WNL Cardiovascular: Yes: Pulse Irregular, S1, S2 Respiratory: Yes: Rhonchi (FEW RHONCHI) Gastrointestinal: Yes: Normal Bowel Sounds, Soft Extremities: Yes: WNL Edema: No Labs: CBC, BMP 11/06/18 06:39 11/06/18 06:39 INR, PTT INR 1.13 (0.83-1.09) H 11/02/18 22:30 Problem List - Problems (1) Sleep apnea Code(s): G47.30 - SLEEP APNEA, UNSPECIFIED (2) Acute electrocardiogram changes Code(s): R94.31 - ABNORMAL ELECTROCARDIOGRAM [ECG] [EKG] (3) COPD exacerbation Code(s): J44.1 - CHRONIC OBSTRUCTIVE PULMONARY DISEASE W (ACUTE) EXACERBATION (4) Chest pain Code(s): R07.9 - CHEST PAIN, UNSPECIFIED (5) CHF (congestive heart failure) Code(s): I50.9 - HEART FAILURE, UNSPECIFIED (6) History of atrial fibrillation Code(s): Z86.79 - PERSONAL HISTORY OF OTHER DISEASES OF THE CIRCULATORY SYSTEM (7) Pulmonary HTN Code(s): I27.20 - PULMONARY HYPERTENSION, UNSPECIFIED (8) Acute on chronic respiratory failure with hypoxia and hypercapnia Code(s): J96.21 - ACUTE AND CHRONIC RESPIRATORY FAILURE WITH HYPOXIA; J96.22 - ACUTE AND CHRONIC RESPIRATORY FAILURE WITH HYPERCAPNIA Assessment/Plan IMP ACUTE ON CHRONIC HYPOXEMIC/HYPERCAPNEIC RESPIRATORY FAILURE IMPROVING COPD EXACERBATION IMPROVING LIKELY UNDERLYING ILD AFIB S/P PPM GERD HLD HTN SEVERE PULMONARY HTN OSAS MODERATE RESPONDED WELL TO BIPAP IPAP11 EPAP 7 CKD PLAN O2 PREDNISONE INHALED BRONCHODILATORS BIPAP IPAP 11 EPAP 7 AT NIGHT IF PT COMPLIES HOME TRILOGY DEVICE CAPRI HORTON Problem List - Problems (1) Sleep apnea Code(s): G47.30 - SLEEP APNEA, UNSPECIFIED (2) Acute electrocardiogram changes Code(s): R94.31 - ABNORMAL ELECTROCARDIOGRAM [ECG] [EKG] (3) COPD exacerbation Code(s): J44.1 - CHRONIC OBSTRUCTIVE PULMONARY DISEASE W (ACUTE) EXACERBATION (4) Chest pain Code(s): R07.9 - CHEST PAIN, UNSPECIFIED (5) CHF (congestive heart failure) Code(s): I50.9 - HEART FAILURE, UNSPECIFIED (6) History of atrial fibrillation Code(s): Z86.79 - PERSONAL HISTORY OF OTHER DISEASES OF THE CIRCULATORY SYSTEM (7) Pulmonary HTN Code(s): I27.20 - PULMONARY HYPERTENSION, UNSPECIFIED (8) Acute on chronic respiratory failure with hypoxia and hypercapnia Code(s): J96.21 - ACUTE AND CHRONIC RESPIRATORY FAILURE WITH HYPOXIA; J96.22 - ACUTE AND CHRONIC RESPIRATORY FAILURE WITH HYPERCAPNIA
[2018-11-06] MEDS ORDERED: POTASSIUM CHLORIDE TABS 20 MEQ TABLET.ER (FP) PO ONE (09:07)
--- NOTE | 2018-11-06 09:09 | PN ---
Progress Note, Physician History of Present Illness: Pt seen and examined at bedside. She is awake and alert. She feels that her breathing is improving. - Current Medication List Current Medications: Active Medications Albuterol/Ipratropium (Duoneb -) 1 amp NEB Q6H PRN PRN Reason: SHORTNESS OF BREATH Last Admin: 11/04/18 11:35 Dose: 1 amp Amlodipine Besylate (Norvasc -) 5 mg PO DAILY [facility] Last Admin: 11/05/18 09:55 Dose: 5 mg Apixaban (Eliquis -) 2.5 mg PO BID [facility] Last Admin: 11/05/18 21:48 Dose: 2.5 mg Atorvastatin Calcium (Lipitor -) 20 mg PO HS [facility] Last Admin: 11/05/18 21:48 Dose: 20 mg Ergocalciferol (Drisdol -) 50,000 unit PO Q7D [facility] Last Admin: 11/03/18 15:57 Dose: 50,000 unit Ferrous Sulfate (Feosol -) 325 mg PO DAILY [facility] Last Admin: 11/05/18 09:55 Dose: 325 mg Furosemide (Lasix -) 40 mg PO DAILY [facility] Azithromycin (Zithromax 500mg Ivpb (Pre-Docked)) 500 mg in 250 mls @ 250 mls/ hr IVPB DAILY [facility] Last Admin: 11/05/18 10:34 Dose: 250 mls/hr Insulin Aspart (Novolog Vial Sliding Scale -) 1 vial SQ ACHS [facility]; Protocol Last Admin: 11/06/18 06:05 Dose: 2 units Metoprolol Succinate (Toprol Xl -) 25 mg PO BID [facility] Last Admin: 11/05/18 21:48 Dose: 25 mg Pancrelipase (Creon Dr 36,000 Units Capsule) 1 cap PO TIDCM [facility] Last Admin: 11/05/18 17:39 Dose: 1 cap Pantoprazole Sodium (Protonix -) 40 mg PO DAILY [facility] Last Admin: 11/05/18 09:55 Dose: 40 mg Prednisone (Deltasone -) 40 mg PO DAILY [facility] Fluticasone/Salmeterol (Advair 100mcg/50mcg -) 1 puff IH BID [facility] Last Admin: 11/05/18 21:48 Dose: 1 puff Tiotropium [place] (Spiriva Respimat) 2 puff IH DAILY [facility] Last Admin: 11/05/18 09:58 Dose: 2 puff - Objective Vital Signs: Vital Signs Temperature 97.8 F 11/06/18 05:00 Pulse Rate 76 11/06/18 05:00 Respiratory Rate 20 11/06/18 05:00 Blood Pressure 142/72 11/06/18 05:00 O2 Sat by Pulse Oximetry (%) 92 L 11/05/18 21:00 Constitutional: Yes: Calm Eyes: Yes: Conjunctiva Clear HENT: Yes: Atraumatic Neck: Yes: Supple Cardiovascular: Yes: S1, S2 Respiratory: Yes: On Nasal O2, Wheezes Gastrointestinal: Yes: Soft Genitourinary: Yes: WNL Musculoskeletal: Yes: WNL Edema: Yes Edema: LLE: 1+, RLE: 1+ Integumentary: Yes: WNL Neurological: Yes: Oriented Psychiatric: Yes: Oriented Labs: CBC, BMP 11/06/18 06:39 11/06/18 06:39 INR, PTT INR 1.13 (0.83-1.09) H 11/02/18 22:30 Assessment/Plan Current Medications Generic Name Dose Route Start Last Admin Trade Name Freq PRN Reason Stop Dose Admin Albuterol/Ipratropium 1 amp 11/03/18 00:58 11/04/18 11:35 Duoneb - NEB 1 amp Q6H PRN Administration SHORTNESS OF BREATH Amlodipine Besylate 5 mg 11/03/18 10:00 11/05/18 09:55 Norvasc - PO 5 mg DAILY [facility] Administration Apixaban 2.5 mg 11/03/18 01:15 11/05/18 21:48 Eliquis - PO 2.5 mg BID [facility] Administration Atorvastatin Calcium 20 mg 11/03/18 22:00 11/05/18 21:48 Lipitor - PO 20 mg HS [facility] Administration Ergocalciferol 50,000 unit 11/03/18 15:30 11/03/18 15:57 Drisdol - PO 50,000 unit Q7D [facility] Administration Ferrous Sulfate 325 mg 11/04/18 10:00 11/05/18 09:55 Feosol - PO 325 mg DAILY [facility] Administration Furosemide 40 mg 11/06/18 10:00 Lasix - PO DAILY [facility] Azithromycin 500 mg in 250 mls @ 250 mls/hr 11/04/18 10:00 11/05/18 10:34 Zithromax 500mg Ivpb (Pre-Docked) IVPB 250 mls/hr DAILY [facility] Administration Insulin Aspart 1 vial 11/03/18 16:30 11/06/18 06:05 Novolog Vial Sliding Scale - SQ 2 units ACHS [facility] Administration Protocol Metoprolol Succinate 25 mg 11/03/18 01:15 11/05/18 21:48 Toprol Xl - PO 25 mg BID [facility] Administration Pancrelipase 1 cap 11/03/18 17:30 11/05/18 17:39 Crealissa Mcgee 36,000 Units Capsule PO 1 cap TIDCM [facility] Administration Pantoprazole Sodium 40 mg 11/03/18 10:00 11/05/18 09:55 Protonix - PO 40 mg DAILY [facility] Administration Potassium Chloride 40 meq 11/06/18 09:07 K-Dur - PO 11/06/18 09:08 ONCE ONE Prednisone 40 mg 11/06/18 10:00 Deltasone - PO DAILY [facility] Fluticasone/Salmeterol 1 puff 11/03/18 22:00 11/05/18 21:48 Advair 100mcg/50mcg - IH 1 puff BID [facility] Administration Tiotropium [place] 2 puff 11/04/18 10:00 11/05/18 09:58 Spiriva Respimat IH 2 puff DAILY [facility] Administration Impression 1. CKD 2. PAULA 3. COPD 4. asthma 5. dyspnea 6. HTN 7. a-fib 8. CHF 9. CAD Plan - replace potassium - renal function improving - po lasix, agree with 40 mg (she was taking 20mg at home) - steroids with taper - outpt follow up - avoid nsaids
[2018-11-06 09:13] VITALS: TEMP 98
[2018-11-06] MEDS: LIPASE/PROTEASE/AMYLASE 36,000 UNIT CAPSULE PO SCH ×2 (09:25→11:59)
[2018-11-06] MEDS: metoPROLOL SUCCINATE 25 MG TAB.SR.24H (FP) PO SCH (09:26)
[2018-11-06] MEDS: AZITHROMYCIN IVPB 500 MG/250 ML BAG IVPB SCH (09:27)
[2018-11-06] MEDS: PANTOPRAZOLE 40 MG TABLET (FP) PO SCH (09:28)
[2018-11-06] MEDS: FERROUS SO4 325 MG TABLET (FP) PO SCH (09:28)
[2018-11-06] MEDS: amLODIPine BESYLATE 5 MG TABLET (FP) PO SCH (09:28)
[2018-11-06] MEDS: FLUTICASONE/SALMETEROL 100 MCG/50 MCG DISKUS IH SCH (09:28)
[2018-11-06] MEDS: TIOTROPIUM BROMIDE 2.5 MCG (SPIRIVA) RESPIMAT INHALER IH SCH (09:28)
[2018-11-06] MEDS: APIXABAN 2.5 MG TABLET PO SCH (09:32)
[2018-11-06] MEDS ORDERED: predniSONE 20 MG TABLET (UD) PO SCH (10:00)
[2018-11-06] MEDS ORDERED: FUROSEMIDE 40 MG TABLET (FP) PO SCH (10:00)
--- NOTE | 2018-11-06 11:11 | PN ---
Teaching Attending Note Name of Resident: Ksenia Albrecht ATTENDING PHYSICIAN STATEMENT I saw and evaluated the patient. I reviewed the resident's note and discussed the case with the resident. I agree with the resident's findings and plan as documented. SUBJECTIVE: Feeling better - much less dyspneic. Still refusing BiPAP. OBJECTIVE: Afebrile, Hemodynamically Stable. Last Vital Signs Temp Pulse Resp BP Pulse Ox 98 F 86 18 137/70 92 L 11/06/18 09:00 11/06/18 09:00 11/06/18 09:00 11/06/18 09:00 11/05/18 21:00 Heart - S1, S2, soft SM Lungs - bibasal fine crackles, reduced air entry globally Abdomen - soft, non-tender. Bowel Sounds normal. Extremities - no edema, no calf tenderness. Laboratory Results - last 24 hr 11/05/18 11/05/18 11/05/18 11:51 16:27 21:25 WBC RBC Hgb Hct MCV MCH MCHC RDW Plt Count MPV Absolute Neuts (auto) Neutrophils % Lymphocytes % Monocytes % Eosinophils % Basophils % Nucleated RBC % Sodium Potassium Chloride Carbon Dioxide Anion Gap BUN Creatinine Est GFR (CKD-EPI)AfAm Est GFR (CKD-EPI)NonAf POC Glucometer 242 178 218 Random Glucose Calcium Total Bilirubin AST ALT Alkaline Phosphatase Total Protein Albumin 11/06/18 11/06/18 11/06/18 05:54 06:39 06:39 WBC 9.8 RBC 4.09 Hgb 11.2 Hct 35.5 MCV 86.7 MCH 27.5 MCHC 31.7 L RDW 15.0 Plt Count 248 MPV 8.6 Absolute Neuts (auto) 8.8 H Neutrophils % 90.3 H Lymphocytes % 2.6 L Monocytes % 7.0 D Eosinophils % 0.1 D Basophils % 0.0 Nucleated RBC % 0 Sodium 143 Potassium 3.4 L Chloride 101 Carbon Dioxide 35 H Anion Gap 6 L BUN 63.0 H Creatinine 2.3 H Est GFR (CKD-EPI)AfAm 21.58 Est GFR (CKD-EPI)NonAf 18.62 POC Glucometer 163 Random Glucose 139 H Calcium 9.2 Total Bilirubin 0.3 AST 19 ALT 12 L Alkaline Phosphatase 129 H Total Protein 6.6 Albumin 3.0 L Current Medications Generic Name Dose Route Start Last Admin Trade Name Freq PRN Reason Stop Dose Admin Albuterol/Ipratropium 1 amp 11/03/18 00:58 11/04/18 11:35 Duoneb - NEB 1 amp Q6H PRN Administration SHORTNESS OF BREATH Amlodipine Besylate 5 mg 11/03/18 10:00 11/06/18 09:28 Norvasc - PO 5 mg DAILY [facility] Administration Apixaban 2.5 mg 11/03/18 01:15 11/06/18 09:32 Eliquis - PO 2.5 mg BID [facility] Administration Atorvastatin Calcium 20 mg 11/03/18 22:00 11/05/18 21:48 Lipitor - PO 20 mg HS [facility] Administration Ergocalciferol 50,000 unit 11/03/18 15:30 11/03/18 15:57 Drisdol - PO 50,000 unit Q7D [facility] Administration Ferrous Sulfate 325 mg 11/04/18 10:00 11/06/18 09:28 Feosol - PO 325 mg DAILY [facility] Administration Furosemide 40 mg 11/06/18 10:00 11/06/18 09:28 Lasix - PO 40 mg DAILY [facility] Administration Azithromycin 500 mg in 250 mls @ 250 mls/hr 11/04/18 10:00 11/06/18 09:27 Zithromax 500mg Ivpb (Pre-Docked) IVPB 250 mls/hr DAILY [facility] Administration Insulin Aspart 1 vial 11/03/18 16:30 11/06/18 06:05 Novolog Vial Sliding Scale - SQ 2 units ACHS [facility] Administration Protocol Metoprolol Succinate 25 mg 11/03/18 01:15 11/06/18 09:26 Toprol Xl - PO 25 mg BID [facility] Administration Pancrelipase 1 cap 11/03/18 17:30 11/06/18 09:25 Clair Mcgee 36,000 Units Capsule PO 1 cap TIDCM [facility] Administration Pantoprazole Sodium 40 mg 11/03/18 10:00 11/06/18 09:28 Protonix - PO 40 mg DAILY [facility] Administration Prednisone 40 mg 11/06/18 10:00 11/06/18 09:26 Deltasone - PO 40 mg DAILY [facility] Administration Fluticasone/Salmeterol 1 puff 11/03/18 22:00 11/06/18 09:28 Advair 100mcg/50mcg - IH 1 puff BID [facility] Administration Tiotropium [place] 2 puff 11/04/18 10:00 11/06/18 09:28 Spiriva Respimat IH 2 puff DAILY [facility] Administration ASSESSMENT/PLAN: 88 year old female with CRF sec to COPD (on 2L O2 via NC at home), Chronic Diastolic CHF, HTN, Atrial Fibrillation on Eliquis, and HLD, presented with progressively worsening dyspnea on exertion and found to be hypoxic in the ER. 1. Acute on Chronic hypoxic/hypercapneic respiratory failure secondary to: A. Acute Exacerbation COPD Oxygen saturations much better on 2L via NC. Hx GLORIA - Refuses BiPAP. Medically optimized for discharge on tapering course of prednisone, Azithromycin to complete 5 days, and Bronchodilator Nebs. Continue Spiriva, Advair Pulmonary consulted - recommend Trilogy given non-compliance with BiPAP - case management arranging. B. Acute on Chronic Diastolic CHF with moderate Aortic Stenosis CXR - congestive changes, R sided effusion. Echo - normal EF, mild to moderate , Grade II Diastolic dysfunction. IV Lasix transitioned to PO Lasix 40mg. Daily I/Os, Weights Cardiology follow up as out-patient. 2. PAULA on CKD 3 - resolved, Creat currently at baseline 2.3. Lasix switched to po, dose increased from home dose 20mg to 40mg daily. Nephrology to follow as out-patient. 3. HTN - continue Toprol XL and Norvasc. 4. Atrial Fibrillation - continue Toprol XL and Eliquis. 5. HLD - Continue Statin. DVT Px - on Eliquis. GI Px - Protonix
[2018-11-06 14:18] VITALS: BP 140/70; PULSE 88
--- NOTE | 2018-11-06 14:31 | DS ---
Physical Exam: SUBJECTIVE: Patient assessed in her room today. She is up and walking around her room. Patient eating well and tolerating sodium controlled diet. Saturating at 94% on 2L nasal cannula. Patient educated on importance of at-home oxygen use and compliance with medications. OBJECTIVE: Vital Signs Period Temp Pulse Resp BP Sys/Perez Pulse Ox Last 24 Hr 97.8 F-98.2 F 61-88 18-20 122-142/53-72 92-94 PHYSICAL EXAM GENERAL: AOx3. Walking around room in no acute distress. HEENT: No lymphadenopathy noted LUNGS: Fine crackles at b/l lung bases HEART: Regular rate and rhythm, S1, S2 without murmurs ABDOMEN: Soft, nontender, nondistended, normoactive bowel sounds. EXTREMITIES: No edema. SKIN: No rashes or skin changes noted LABS Laboratory Results - last 24 hr Laboratory Last Values WBC 9.8 K/mm3 (4.0-10.0) 11/06/18 06:39 RBC 4.09 M/mm3 (3.60-5.2) 11/06/18 06:39 Hgb 11.2 GM/dL (10.7-15.3) 11/06/18 06:39 Hct 35.5 % (32.4-45.2) 11/06/18 06:39 MCV 86.7 fl (80-96) 11/06/18 06:39 MCH 27.5 pg (25.7-33.7) 11/06/18 06:39 MCHC 31.7 g/dl (32.0-36.0) L 11/06/18 06:39 RDW 15.0 % (11.6-15.6) 11/06/18 06:39 Plt Count 248 K/MM3 (134-434) 11/06/18 06:39 MPV 8.6 fl (7.5-11.1) 11/06/18 06:39 Absolute Neuts (auto) 8.8 K/mm3 (1.5-8.0) H 11/06/18 06:39 Neutrophils % 90.3 % (42.8-82.8) H 11/06/18 06:39 Neutrophils % (Manual) 96.0 % (42.8-82.8) H 11/05/18 06:30 Band Neutrophils % 0.0 % 11/05/18 06:30 Lymphocytes % 2.6 % (8-40) L 11/06/18 06:39 Lymphocytes % (Manual) 4.0 % (8-40) L D 11/05/18 06:30 Monocytes % 7.0 % (3.8-10.2) D 11/06/18 06:39 Monocytes % (Manual) 0 % (3.8-10.2) L D 11/05/18 06:30 Eosinophils % 0.1 % (0-4.5) D 11/06/18 06:39 Eosinophils % (Manual) 0.0 % (0-4.5) 11/05/18 06:30 Basophils % 0.0 % (0-2.0) 11/06/18 06:39 Basophils % (Manual) 0.0 % (0-2.0) 11/05/18 06:30 Myelocytes % (Man) 0 % (0-2) 11/05/18 06:30 Promyelocytes % (Man) 0 % (0-2) 11/05/18 06:30 Blast Cells % (Manual) 0 % (0-0) 11/05/18 06:30 Nucleated RBC % 0 % (0-0) 11/06/18 06:39 Metamyelocytes 0 % (0-2) 11/05/18 06:30 Hypochromia 0 11/05/18 06:30 Platelet Estimate Normal 11/05/18 06:30 Polychromasia 1+ 11/05/18 06:30 Poikilocytosis 1+ 11/05/18 06:30 Anisocytosis 0 11/05/18 06:30 Microcytosis 0 11/05/18 06:30 Macrocytosis 0 11/05/18 06:30 Spherocytes 1+ 11/03/18 06:30 Target Cells 1+ 11/03/18 06:30 Stomatocytes 1+ 11/05/18 06:30 Acanthocytes (Spur) 1+ 11/03/18 06:30 PT with INR 13.30 SEC (9.7-13.0) H 11/02/18 22:30 INR 1.13 (0.83-1.09) H 11/02/18 22:30 PTT (Actin FS) 35.6 SECONDS (25.2-36.5) 11/02/18 22:30 Anticoagulation Therapy No Result Required. 11/02/18 21:53 Puncture Site No Result Required. 11/02/18 21:53 ABG pH 7.30 (7.35-7.45) L 11/02/18 21:53 ABG pCO2 at Pt Temp 62.7 mmHg (35-45) H 11/02/18 21:53 ABG pO2 at Pt Temp 190 mmHg (80-105) H 11/02/18 21:53 ABG HCO3 29.9 mmol/L (22-27) H 11/02/18 21:53 ABG O2 Sat (Measured) 99.6 % (95-98) H 11/02/18 21:53 ABG O2 Content 16.9 % vol (15-22) 11/02/18 21:53 ABG Base Excess 2.6 meq/l (-2-2) H 11/02/18 21:53 Ankit Test No Result Required. 11/02/18 21:53 Carboxyhemoglobin 1.2 % (0-2) 11/02/18 21:53 Methemoglobin 0.3 % (0-2) 11/02/18 21:53 O2 Delivery Device No Result Required. 11/02/18 21:53 Oxygen Flow Rate No Result Required. 11/02/18 21:53 Vent Mode No Result Required. 11/02/18 21:53 Vent Rate No Result Required. 11/02/18 21:53 Mechanical Rate No Result Required. 11/02/18 21:53 Pressure Support Vent No Result Required. 11/02/18 21:53 Sodium 143 mmol/L (136-145) 11/06/18 06:39 Potassium 3.4 mmol/L (3.5-5.1) L 11/06/18 06:39 Chloride 101 mmol/L (98-107) 11/06/18 06:39 Carbon Dioxide 35 mmol/L (21-32) H 11/06/18 06:39 Anion Gap 6 MMOL/L (8-16) L 11/06/18 06:39 BUN 63.0 mg/dL (7-18) H 11/06/18 06:39 Creatinine 2.3 mg/dL (0.55-1.3) H 11/06/18 06:39 Est GFR (CKD-EPI)AfAm 21.58 11/06/18 06:39 Est GFR (CKD-EPI)NonAf 18.62 11/06/18 06:39 POC Glucometer 167 UNITS (80-120) 11/06/18 11:35 Random Glucose 139 mg/dL (74-106) H 11/06/18 06:39 Hemoglobin A1c % 6.5 % (4.2-6.3) H 11/04/18 06:00 Calcium 9.2 mg/dL (8.5-10.1) 11/06/18 06:39 Phosphorus 4.6 mg/dL (2.5-4.9) 11/03/18 06:30 Magnesium 2.3 mg/dL (1.8-2.4) 11/03/18 06:30 Total Bilirubin 0.3 mg/dL (0.2-1) 11/06/18 06:39 AST 19 U/L (15-37) 11/06/18 06:39 ALT 12 U/L (13-61) L 11/06/18 06:39 Alkaline Phosphatase 129 U/L (45-117) H 11/06/18 06:39 Troponin I < 0.02 ng/ml (0.00-0.05) 11/03/18 06:30 B-Natriuretic Peptide 1841.8 pg/ml (5-450) H 11/02/18 21:53 Total Protein 6.6 g/dl (6.4-8.2) 11/06/18 06:39 Albumin 3.0 g/dl (3.4-5.0) L 11/06/18 06:39 Triglycerides 73 mg/dL (0-150) 11/03/18 06:30 Cholesterol 115 mg/dL (50-200) 11/03/18 06:30 Total LDL Cholesterol 60 mg/dL (5-100) 11/03/18 06:30 HDL Cholesterol 41 mg/dL (40-60) 11/03/18 06:30 Urine Color Yellow 11/03/18 01:35 Urine Appearance Clear 11/03/18 01:35 Urine pH 6.0 (5.0-8.0) 11/03/18 01:35 Ur Specific [place] 1.011 (1.010-1.035) 11/03/18 01:35 Urine Protein 2+ (NEGATIVE) H 11/03/18 01:35 Urine Glucose (UA) Negative (NEGATIVE) 11/03/18 01:35 Urine Ketones Negative (NEGATIVE) 11/03/18 01:35 Urine Blood Negative (NEGATIVE) 11/03/18 01:35 Urine Nitrite Negative (NEGATIVE) 11/03/18 01:35 Urine Bilirubin Negative (NEGATIVE) 11/03/18 01:35 Urine Urobilinogen 0.2 mg/dL (0.2-1.0) 11/03/18 01:35 Ur Leukocyte Esterase Negative (NEGATIVE) 11/03/18 01:35 Urine WBC (Auto) 1 /hpf (0-5) 11/03/18 01:35 Urine RBC (Auto) 1 /hpf (0-4) 11/03/18 01:35 Urine Casts (Auto) 0 /lpf (0-8) 11/03/18 01:35 U Epithel Cells (Auto) 1.4 /HPF (0-5/HPF) 11/03/18 01:35 Urine Bacteria (Auto) 7.1 /hpf (NEGATIVE) 11/03/18 01:35 Ur Random Creatinine 66.0 mg/dL (30-150) 11/03/18 01:35 Ur Random Sodium 37 MMOL/L (40-220) L 11/03/18 01:35 Ur Random Potassium 23.0 MMOL/L (25-125) L 11/03/18 01:35 Ur Random Chloride 26 MMOL/L (110-250) L 11/03/18 01:35 HOSPITAL COURSE: 88 y.o. F w/ PMH HTN, HLD, COPD/ asthma on home O2 (3-4L), GERD, GLORIA, afib on Eloquis, double lead pacemaker presenting with acute on chronic respiratory failure and resp acidosis likely 2/2 to COPD & CHF. Pt continues to have nonproductive cough likely d/t chronic respiratory failure and interstitial lung disease. Saturating well on 2L nasal cannula. Patient refusing BIPAP, will go home with [facility] home ventilator. Date of Admission:11/02/18 Echo 11/03: Normal EF. Grade II diastolic dysfunction. Mild annular calcifications. Mild MR, TR, aortic valve thickening, mild-mod valvular . PAH is min 44mmHg. CXR 11/02: congestive changes, rt pl eff CT 11/03: Emphysematous changes as described above. Some degree of ILD is suspected. Trace pleural effusions bilaterally. Cardiomegaly. Prominence of the pulmonary artery trunk suggesting the possibility of pulmonary artery hypertension, correlate with echo Date of Discharge: 11/06/18 Minutes to complete discharge: 36 Discharge Summary Reason For Visit: DYSPNEAON EXERTION.ACUTE EXACBATION OF CHRONIC Current Active Problems Acute electrocardiogram changes (Acute) Acute on chronic diastolic CHF (congestive heart failure) (Acute) Acute on chronic respiratory failure with hypoxia and hypercapnia (Acute) COPD exacerbation (Acute) Chest pain (Acute) FRYE (dyspnea on exertion) (Acute) Pneumonia (Acute) Pulmonary HTN (Acute) Sleep apnea (Acute) Condition: Stable - Instructions Diet, Activity, Other Instructions: You presented to the hospital with shortness of breath, chest congestion and and cough. You had a chest X-ray which revealed congestion in both lungs and some fluid in your right lung. You were treated with IV steroids as well as inhaled medications and your symptoms resolved. Medication Changes: 1. Please take Lasix 40mg by mouth (you were previously on 20mg) 2. Please continue taking Zithromax (Azithromycin) 500mg for 2 more days. You will stop taking Zithromax on 11/08/18. 3.You are being discharged on a prednisone taper as follows: -40mg for 3 days (11/07-11/09) -30mg for 3 days (11/10-11/12) -20mg for 3 days (11/13-11/15) -10mg for 3 days (11/16-11/18) You will complete the steroid course on 11/18/18 Follow up with the following physicians: 1. Primary care provider in 1 week 2. Pulmonology (Dr. Pena) in 1 week--your CT scan revealed you have Interstitial Lung Disease. 3. Cardiology (Dr. Wayne) in 1 week to further manage your heart failure 4. Nephrology (Dr. Barrios) in 1 week You are being discharged to your home. You will be contacted by social work to set up your trilogy machine. Continue taking all your medications as prescribed. Please do not take aspirin or other NSAIDs in order to protect your kidney function. Please return to the ER if you have any signs or symptoms of shortness of breath , chest pain, dizziness, palpitations, vomiting, muscle pains or weakness. Please return to the ER if symptoms persist, worsen, or new symptoms arise. Referrals: Rodney Pena MD [Staff Physician] - Christal Wayne MD [Staff Physician] - Diaz Johnson MD [Primary Care Provider] - Michell Barrios MD [Staff Physician] - Disposition: HOME - Home Medications Comprehensive Discharge Medication List: Ambulatory Orders Amlodipine Besylate [Norvasc -] 5 mg PO DAILY 05/22/17 Apixaban [Eliquis] 2.5 mg PO BID 05/22/17 Calcium Carbonate/Vitamin D3 [Calcium 600+D Softgel] 1 each PO WEEKLY 05/22/17 Fluticasone/Salmeterol [Advair Hfa 230-21 Mcg Inhaler] 12 gm IH DAILY 05/22/17 Lipase/Protease/Amylase [Creon Dr 36,000 Units Capsule] 1 each PO Q8H 05/22/17 Metoprolol Succinate 25 mg PO BID 05/22/17 Omeprazole 40 mg PO DAILY 05/22/17 Simvastatin 40 mg PO DAILY 05/22/17 Tiotropium [place] [Spiriva] 2.5 mcg IH BID 05/22/17 Ferrous Sulfate [Iron] 325 mg PO DAILY 11/03/18 Azithromycin [Zithromax] 500 mg PO DAILY #2 tablet 11/06/18 Furosemide [Lasix] 40 mg PO DAILY #30 tablet 11/06/18 Prednisone See Taper PO DAILY #30 tablet 11/06/18 This patient is new to me today: No Emergency Visit: No Critical Care patient: No - Discharge Referral Referred to [facility] No
== END 2018-11-06 15:40 | disposition home or self-care (01) | DRG 291 ==
LOC: SUPCPDRO 20:50 → JER 20:50 → JERBED 22:28 → J4W 11-03 21:52
PROVIDERS: ADMIT Internal Medicine
DX: I13.0 Hypertensive heart and chronic kidney disease with heart failure and stage 1 through stage 4 chronic kidney disease, or unspecified chronic kidney disease (principal); J96.22 Acute and chronic respiratory failure with hypercapnia; I50.33 Acute on chronic diastolic (congestive) heart failure; J96.21 Acute and chronic respiratory failure with hypoxia; J44.1 Chronic obstructive pulmonary disease with (acute) exacerbation; N17.9 Acute kidney failure, unspecified; E78.5 Hyperlipidemia, unspecified; K21.9 Gastro-esophageal reflux disease without esophagitis; R07.9 Chest pain, unspecified; I48.91 Unspecified atrial fibrillation; I27.20 Pulmonary hypertension, unspecified; I35.0 Nonrheumatic aortic (valve) stenosis; N18.3 Chronic kidney disease, stage 3 (moderate); J45.909 Unspecified asthma, uncomplicated; I25.10 Atherosclerotic heart disease of native coronary artery without angina pectoris; G47.33 Obstructive sleep apnea (adult) (pediatric)
CPT/HCPCS: 36415; 36600; 71046-TC-FY; 71250-TC; 80053; 80061; 81003; 82375; 82436; 82565; 82803; 82962; 83036; 83050; 83721; 83735; 83880; 84100; 84133; 84300; 84484; 85025; 85610; 85730; 87040; 93005; 93010; 93306-TC; 94640; 94660; 99285-25

== ENCOUNTER 2018-12-24 09:18 | Inpatient (IN) | payer OTHER ==
[2018-12-24] MEDS: ALBUTEROL SO4 2.5/IPRATROPIUM 0.5 INH SOL 3 ML VIAL.NEB. NEB SCH ×4 (09:20→10:16)
[2018-12-24] MEDS ORDERED: methylPREDNISolone NA SUCC 125 MG/2 ML VIAL ONE (09:29)
[2018-12-24] MEDS ORDERED: ALBUTEROL SO4 2.5/IPRATROPIUM 0.5 INH SOL 3 ML VIAL.NEB. NEB ONE ×2 (09:29→09:47)
[2018-12-24] MEDS ORDERED: DEXAMETHASONE SOD PHOSPHATE 10 MG/1 ML VIAL ONE (09:29)
[2018-12-24] MEDS ORDERED: methylPREDNISolone NA SUCC 125 MG/2 ML VIAL IVPB ONE (09:30)
[2018-12-24] MEDS ORDERED: ACETAMINOPHEN 1000 MG/100 ML VIAL (NON FORMULARY) IVPB ONE (09:30)
[2018-12-24 09:43] VITALS: BMI 28.2
[2018-12-24] MEDS ORDERED: ACETAMINOPHEN INJECTION 100 ML IVPB ONE (09:47)
--- NOTE | 2018-12-24 09:53 | PDOC ---
Documentation entered by Valorie Tobias SCRIBE, acting as scribe for Moncho Guillen MD. Moncho Guillen MD: This documentation has been prepared by the Micheline garrett Sammi, SCRIBE, under my direction and personally reviewed by me in its entirety. I confirm that the documentation accurately reflects all work, treatment, procedures, and medical decision making performed by me. History of Present Illness - General Chief Complaint: Shortness of Breath Stated Complaint: COPD History Source: Patient, Care Provider, EMS - History of Present Illness Initial Comments: 12/24/18 09:36 The patient is an 88 year old danish speaking female, with a significant PMH of COPD (3-4L home O2), asthma, CVA, gastritis, afib (eliquis, s/p pacemaker), CAD, [place], HTN, HLD, and CHF, who was BIBA to the emergency department for evaluation of SOB. As per patients aide, the patient has been short of breath for the past several days. Pt endorses SOB and pleuritic chest pain. Pt reports several recent similar episodes. She is unable to give further history 2/2 respiratory distress. Per EMS, the patient has never been intubated. Occasionally uses CPAP. Allergies: Aspirin Social history: Patient confirms former tobacco use (states she quit 50+ years ago) PCP: Elizabeth Past History - Past Medical History Allergies/Adverse Reactions: Allergies Allergy/AdvReac Type Severity Reaction Status Date / Time aspirin Allergy Verified 12/24/18 09:29 Home Medications: Ambulatory Orders Amlodipine Besylate [Norvasc -] 5 mg PO DAILY 05/22/17 Apixaban [Eliquis] 2.5 mg PO BID 05/22/17 Calcium Carbonate/Vitamin D3 [Calcium 600+D Softgel] 1 each PO WEEKLY 05/22/17 Fluticasone/Salmeterol [Advair Hfa 230-21 Mcg Inhaler] 12 gm IH DAILY 05/22/17 Lipase/Protease/Amylase [Clair Mcgee 36,000 Units Capsule] 1 each PO Q8H 05/22/17 Metoprolol Succinate 25 mg PO BID 05/22/17 Omeprazole 40 mg PO DAILY 05/22/17 Simvastatin 40 mg PO DAILY 05/22/17 Tiotropium [place] [Spiriva] 2.5 mcg IH BID 05/22/17 Furosemide [Lasix] 40 mg PO DAILY #30 tablet 11/06/18 Valsartan [Diovan] 160 mg PO DAILY 12/24/18 Anemia: No Asthma: Yes Cancer: No Cardiac Disorders: Yes CVA: Yes (2012 - NO RESIDUAL) COPD: Yes CHF: No Dementia: No Diabetes: No GI Disorders: Yes (GASTRITIS) Disorders: No HTN: Yes Hypercholesterolemia: Yes Liver Disease: No Seizures: No Thyroid Disease: No - Surgical History Abdominal Surgery: No Appendectomy: No Cardiac Surgery: No Cholecystectomy: No Lung Surgery: No Neurologic Surgery: No Orthopedic Surgery: No - Immunization History Immunization Up to Date: No - Suicide/Smoking/Psychosocial Hx Smoking Status: Yes Smoking History: Former smoker Have you smoked in the past 12 months: No Number of Cigarettes Smoked Daily: 0 If you are a former smoker, when did you quit?: 1994 'Breaking Loose' booklet given: 11/04/18 Hx Alcohol Use: No Drug/Substance Use Hx: No Substance Use Type: None Hx Substance Use Treatment: No Respiratory Specific PMHX - Complaint Specific PMHX Angina: No Review of Systems - Review of Systems Comments:: 12/24/18 09:38 GENERAL/CONSTITUTIONAL: (+)fever. No chills. No weakness. HEAD, EYES, EARS, NOSE AND THROAT: No change in vision. No ear pain or discharge. No sore throat. CARDIOVASCULAR: (+) chest pain, no loss of consciousness RESPIRATORY: (+)SOB. No cough, wheezing, or hemoptysis. GASTROINTESTINAL: No nausea, vomiting, diarrhea or constipation. GENITOURINARY: No dysuria, frequency, or change in urination. MUSCULOSKELETAL: No joint or muscle swelling or pain. No neck or back pain. SKIN: No rash NEUROLOGIC: No vertigo, no change in strength/sensation. *Physical Exam - Physical Exam Comments: 12/24/18 09:59 GENERAL: Awake, alert, and fully oriented, in moderate respiratory distress HEAD: No signs of trauma EYES: PERRLA, EOMI, sclera anicteric, conjunctiva clear ENT: Auricles normal inspection, hearing grossly normal, nares patent, oropharynx clear without exudates. Moist mucosa NECK: Nontender, no stepoffs, Normal ROM, supple, no lymphadenopathy, JVD, or masses LUNGS: + poor air movement, mild expiratory wheezes HEART: Regular rate and rhythm, normal S1 and S2, no murmurs, rubs or gallops ABDOMEN: Soft, nontender, normoactive bowel sounds. No guarding, no rebound. No masses EXTREMITIES: Normal range of motion, no edema. No clubbing or cyanosis. No cords, erythema, or tenderness NEUROLOGICAL: Cranial nerves II through XII intact. 5/5 strength and sensation in all extremities, Normal speech, normal gait, normal cerebellar function SKIN: Warm, Dry, normal turgor, no rashes or lesions noted. Heart Score/ECG Review - ECG Impressions Comment:: 12/24/18 10:00 atrial fibrillation with RVR, rate 146, LBBB ED Treatment Course - LABORATORY CBC & Chemistry Diagram: 12/24/18 09:51 12/24/18 10:00 Medical Decision Making - Critical Care Time Total Critical Care Time (minutes): 60 Critical Care Statement: The care of this patient involved high complexity decision making to prevent further life threatening deterioration of the patient 's condition and/or to evaluate & treat vital organ system(s) failure or risk of failure. - Medical Decision Making 12/24/18 10:00 88 F with SOB and chest pain. Vitals in ED Notable for fever, tachycardia, hypoxia. Exam with poor aeration + wheezes. Possible COPD flare. Likely 2/2 infectious process given fever. Possible PNA. Also consider CHF, though pt with no signs of volume overload on exam. - Labs, trop, BNP - blood gas - CXR - Nebs, steroids - BiPAP 12/24/18 10:17 CXR with bilateral infiltrates, edema Pt on BiPAP IV Lasix ordered Will also cover for HCAP given fever 12/24/18 11:30 Pt still tachycardic to 170, will rate control with metoprolol 5mg IV + 25mg PO Pt admitted to Dr. Dias ICU consulted, case discussed with Dr. Tejada *DC/Admit/Observation/Transfer Diagnosis at time of Disposition: Acute on chronic diastolic CHF (congestive heart failure), Sepsis, Chest pain - Discharge Dispostion Decision to Admit order: Yes - Referrals Referrals: Diaz Johnson MD [Primary Care Provider] - - Patient Instructions - Post Discharge Activity - Attestations Physician Attestion: 12/24/18 11:31 I, Dr. Moncho Guillen MD, attest that this document has been prepared under my direction and personally reviewed by me in its entirety. I further attest, that it accurately reflects all work, treatment, procedures and medical decision -making performed by me.
[2018-12-24] MEDS ORDERED: FUROSEMIDE 40 MG/4 ML INJECTABLE VIAL IVPUSH ONE (10:16)
[2018-12-24] MEDS ORDERED: VANCOMYCIN 1 GM in D5W (PRE-DOCKED) 1,000 MG/250 ML IVPB ONE (10:20)
[2018-12-24] MEDS ORDERED: PIPERACILLIN/TAZOB 4.5 GM 4.5 GM/100 ML BAG IVPB ONE ×2 (10:20→10:23)
[2018-12-24] MEDS ORDERED: VANCOMYCIN 1 GRAM (PRE-DOCKED) 1,000 MG/250 ML BAG IVPB ONE (10:23)
[2018-12-24] MEDS ORDERED: FUROSEMIDE 40 MG/4 ML INJECTABLE VIAL ONE (10:23)
[2018-12-24 10:29] LABS: BASO % 0.6 % (0-2.0); EOS % 1.6 % (0-4.5); HEMATOCRIT 37.2 % (32.4-45.2); HEMOGLOBIN 11.7 GM/dL (10.7-15.3); LYMPH % 12.9 % (8-40); MCH 27.7 pg (25.7-33.7); MCHC 31.5 g/dl (32.0-36.0); MEAN CELL VOLUME 87.9 fl (80-96); MEAN PLT VOLUME 8.6 fl (7.5-11.1); MONO % 8.1 % (3.8-10.2); NEUT % 76.8 % (42.8-82.8); PLATELET COUNT 230 K/MM3 (134-434); RBC 4.23 M/mm3 (3.60-5.2); RDW 16.6 % (11.6-15.6); WHITE BLOOD COUNT 13.1 K/mm3 (4.0-10.0)
[2018-12-24 11:09] LABS: ALBUMIN 3.1 g/dl (3.4-5.0); BILIRUBIN,TOTAL 0.6 mg/dL (0.2-1); BLOOD UREA NITROGEN 32.1 mg/dL (7-18); CALCIUM 9.6 mg/dL (8.5-10.1); N-TERMINAL BNP 8304.6 pg/ml (5-450); POTASSIUM 4.1 mmol/L (3.5-5.1); TOT PROT 6.2 g/dl (6.4-8.2)
[2018-12-24 11:18] LABS: INR 1.18 (0.83-1.09); PROTHROMBIN TIME (PATIENT) 13.9 SEC (9.7-13.0)
[2018-12-24 11:21] LABS: ACTIVATED PTT 29.9 SECONDS (25.2-36.5)
[2018-12-24] MEDS ORDERED: METOPROLOL TARTRATE 5 MG/5 ML VIAL IVPUSH ONE ×2 (11:23→17:04)
[2018-12-24] MEDS ORDERED: METOPROLOL TARTRATE 25 MG TABLET (FP) PO ONE (11:23)
[2018-12-24 11:28] LABS: VENOUS PC02 66.2 mmHg (38-52); VENOUS PH 7.32 (7.31-7.41)
[2018-12-24 11:32] LABS: VENOUS PO2 < 49 mmHg (28-48)
[2018-12-24] MEDS ORDERED: METOPROLOL TARTRATE 5 MG/5 ML VIAL ONE ×2 (11:41→17:51)
[2018-12-24] MEDS ORDERED: METOPROLOL TARTRATE 25 MG TABLET (FP) ONE (11:41)
--- NOTE | 2018-12-24 12:21 | EKG ---
Test Reason : Blood Pressure : / mmHG Vent. Rate : 146 BPM Atrial Rate : 267 BPM P-R Int : 000 ms QRS Dur : 118 ms QT Int : 290 ms P-R-T Axes : 000 027 231 degrees QTc Int : 451 ms ATRIAL FIBRILLATION WITH RAPID VENTRICULAR RESPONSE WITH FREQUENT ventricular-paced complexes INCOMPLETE LEFT BUNDLE BRANCH BLOCK ABNORMAL ECG WHEN COMPARED WITH ECG OF 02-NOV-2018 20:48, VENT. RATE HAS INCREASED BY 80 BPM Confirmed by ARTUR STATON, DILCIA ([id number]) on 12/24/2018 12:20:53 PM Referred By: Confirmed By:DILCIA SIDDIQUI MD
--- NOTE | 2018-12-24 12:36 | CON.CARD ---
Consult Consult Specialty:: Cardiology Referred by:: Emergency Medicine Reason for Consultation:: Afib with RVR - History of Present Illness Chief Complaint: Dyspnea History of Present Illness: The patient is an 88 year old moldovan speaking female, with a significant PMH of COPD (3-4L home O2), asthma, CVA, gastritis, paroxysmal afib (eliquis, s/p pacemaker), CAD, [place], HTN, HLD, and systolic/diastolic CHF, CKD who was BIBA to the emergency department for evaluation of SOB. As per patients aide, the patient has been short of breath for the past several days along with pleuritic chest pain. Pt reports several recent similar episodes. She is unable to give further history 2/2 respiratory distress. Per EMS, the patient has never been intubated. Occasionally uses CPAP, found to be in rapid afib, given diuresis and IV Lopressor for rate-control. 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 No: Sleep Apnea Gastrointestinal: Yes: GERD Renal/: Yes: Renal Inusuff - Alcohol/Substance Use Hx Alcohol Use: No - Smoking History Smoking history: Former smoker Have you smoked in the past 12 months: No Aproximately how many cigarettes per day: 0 If you are a former smoker, when did you quit?: 1994 Home Medications - Allergies Allergies/Adverse Reactions: Allergies Allergy/AdvReac Type Severity Reaction Status Date / Time aspirin Allergy Verified 12/24/18 09:29 - Home Medications Home Medications: Ambulatory Orders Amlodipine Besylate [Norvasc -] 5 mg PO DAILY 05/22/17 Apixaban [Eliquis] 2.5 mg PO BID 05/22/17 Calcium Carbonate/Vitamin D3 [Calcium 600+D Softgel] 1 each PO WEEKLY 05/22/17 Fluticasone/Salmeterol [Advair Hfa 230-21 Mcg Inhaler] 12 gm IH DAILY 05/22/17 Lipase/Protease/Amylase [Clair Mcgee 36,000 Units Capsule] 1 each PO Q8H 05/22/17 Metoprolol Succinate 25 mg PO BID 05/22/17 Omeprazole 40 mg PO DAILY 05/22/17 Simvastatin 40 mg PO DAILY 05/22/17 Tiotropium [place] [Spiriva] 2.5 mcg IH BID 05/22/17 Furosemide [Lasix] 40 mg PO DAILY #30 tablet 11/06/18 Valsartan [Diovan] 160 mg PO DAILY 12/24/18 Review of Systems - Review of Systems Respiratory: reports: Exercise Intolerance, SOB, SOB on Exertion Vital Signs: Vital Signs Temperature 100.5 F H 12/24/18 10:16 Pulse Rate 167 H 12/24/18 10:36 Respiratory Rate 30 H 12/24/18 10:36 Blood Pressure 138/113 H 12/24/18 11:52 O2 Sat by Pulse Oximetry (%) 96 12/24/18 10:36 Constitutional: Yes: No Distress, Calm Neck: Yes: Supple Respiratory: Yes: Regular, Diminished, On Nasal O2 Gastrointestinal: Yes: Normal Bowel Sounds, Soft, Abdomen, Obese Cardiovascular: Yes: Tachycardia, Pulse Irregular JVD: No Carotid Bruit: No Heart Sounds: Yes: S1, S2 Edema: No - Other Data Labs, Other Data: CBC, BMP 12/24/18 09:51 12/24/18 10:00 INR, PTT INR 1.18 (0.83-1.09) H 12/24/18 09:43 Troponin, BNP 12/24/18 10:00 Troponin I 0.03 B-Natriuretic Peptide 8304.6 H Troponin, BNP 12/24/18 10:00 Troponin I 0.03 B-Natriuretic Peptide 8304.6 H Afib @ 146 ILBBB PVC Imaging - Results Chest X-ray: Report Reviewed (CHF and bilateral effusions) Problem List - Problems (1) Atrial fibrillation with rapid ventricular response Code(s): I48.91 - UNSPECIFIED ATRIAL FIBRILLATION (2) Chronic anticoagulation Code(s): Z79.01 - DETENTION (CURRENT) USE OF ANTICOAGULANTS (3) CKD (chronic kidney disease) Code(s): N18.9 - CHRONIC KIDNEY DISEASE, UNSPECIFIED Qualifiers: Chronic kidney disease stage: stage 3 (moderate) Qualified Code(s): N18.3 - Chronic kidney disease, stage 3 (moderate) (4) Acute on chronic diastolic CHF (congestive heart failure) Code(s): I50.33 - ACUTE ON CHRONIC DIASTOLIC (CONGESTIVE) HEART FAILURE (5) Acute on chronic respiratory failure with hypoxia and hypercapnia Code(s): J96.21 - ACUTE AND CHRONIC RESPIRATORY FAILURE WITH HYPOXIA; J96.22 - ACUTE AND CHRONIC RESPIRATORY FAILURE WITH HYPERCAPNIA (6) Pulmonary HTN Code(s): I27.20 - PULMONARY HYPERTENSION, UNSPECIFIED (7) History of COPD Code(s): Z87.09 - PERSONAL HISTORY OF OTHER DISEASES OF THE RESPIRATORY SYSTEM (8) Hyperlipidemia Code(s): E78.5 - HYPERLIPIDEMIA, UNSPECIFIED Qualifiers: Hyperlipidemia type: pure hypercholesterolemia Qualified Code(s): E78.00 - Pure hypercholesterolemia, unspecified; E78.0 - Pure hypercholesterolemia Assessment/Plan 11/03/2018 Echo: Normal LV size and fxn LVEF 55-60%, grade II DD, mild-mod TR RVSP 44 mmHg, mild-mod MG 12 mmHg 11/03/[address]: Emphysema, ILD, pulm HTN 08/16/2015 Echo: Normal LV size with mild cLVH, mod-severe decreased LVEF, mod TR , mild MR, OR 03/09/2015 P=Myoview: No ischemia, LVEF 51% 1. Acute on chronic hypercapneic, hypoxemic respiratory failure referable to 1. Acute on chronic LV diastolic failure with h/o resolved cardiomyopathy in context of 2. Paroxysmal atrial fibrillation with rapid ventricular response [id number] score of 7-8 now on NOAC 3. Home O2-dependent COPD 4. CAD negative MPI study for myocardial ischemia 03/09/2015 5. CLBBBB 6. HTN 7. Hypercholesterolemia 8. History of CVA 9. CKD PLAN: 1. IV diuresis with monitor diuretic response, renal fxn and electrolytes 2. Continue Toprol XL 25 bid with IV Cardizem or Lopressor as needed for rate- control, continue Lipitor 20 qhs and Eliquis 2.5 bid, resume Diovan as hemodynamics tolerate since renal fxn at baseline 3. BD, O2 as needed, observe off steroids and abx 4. Thank you for consultative opportunity
--- NOTE | 2018-12-24 13:48 | CONSULT ---
Consultation: CONSULT SERVICE: ICU Resident HISTORY OF PRESENT ILLNESS: 88yo F with h/o HTN, HLD, COPD (2LNC), pAF, CAD with mixed systolic and diastolic dysfunction and CKD who presents today with increased shortness of breath with chest pain noted to be with continued tachypnea. Pt was noted to be in respiratory distress and pt was place on BiPap 10/5 with interval relief. Upon my exam pt was speaking in full sentences and she reports her work of breathing has markedly improved. Pt also endorses palpitations and was found to be in rapid Atrial fibrillation with resulting CXR in decompensated CHF. Pt denies any sick contacts or any triggers for event at this time. Pt was given lasix and was rate controlled with Cardizem, which she complains about polyuria at this time. REVIEW OF SYSTEMS: As per HPI PHYSICAL EXAMINATION Vital Signs - 24 hr 12/24/18 12/24/18 12/24/18 09:26 09:33 09:53 Temperature 100.5 F H Pulse Rate 165 H 155 H Pulse Rate [ Radial] Respiratory 40 H Rate Blood Pressure 150/76 Blood Pressure [Left Arm] O2 Sat by Pulse 88 L 98 Oximetry (%) 12/24/18 12/24/18 12/24/18 10:14 10:16 10:36 Temperature 100.5 F H Pulse Rate Pulse Rate [ 160 H 167 H Radial] Respiratory 32 H 30 H Rate Blood Pressure Blood Pressure 128/85 110/80 [Left Arm] O2 Sat by Pulse 96 98 96 Oximetry (%) 12/24/18 11:52 Temperature Pulse Rate Pulse Rate [ Radial] Respiratory Rate Blood Pressure 138/113 H Blood Pressure [Left Arm] O2 Sat by Pulse Oximetry (%) GENERAL: NAD, Awake, alert, and fully oriented HEENT: NC/AT, BENITEZ, sclera anicteric, MMM NECK: No JVD noted. LUNGS: Diffuse rales noted bilaterally. No wheezes. No accessory muscle use. On Bipap 10/5/RR14/FiO2 50% HEART: Irregularly irregular rhythm with tachycardia (115), normal S1 and S2 without murmur ABDOMEN: Soft, NT/ND, normoactive bowel sounds, no guarding, no hepatojugular reflux MUSCULOSKELETAL: No CVA tenderness. EXTREMITIES: 2+ pulses, warm, well-perfused. No calf tenderness. Trace peripheral edema. PSYCHIATRIC: Cooperative. Good eye contact. Appropriate mood and affect. SKIN: Warm, dry, no rashes or lesions noted. Laboratory Results - last 24 hr 12/24/18 12/24/18 12/24/18 09:43 09:51 10:00 WBC 13.1 H RBC 4.23 Hgb 11.7 Hct 37.2 MCV 87.9 MCH 27.7 MCHC 31.5 L RDW 16.6 H Plt Count 230 MPV 8.6 Absolute Neuts (auto) 10.1 H Neutrophils % 76.8 Lymphocytes % 12.9 D Monocytes % 8.1 Eosinophils % 1.6 D Basophils % 0.6 D Nucleated RBC % 0 PT with INR 13.90 H INR 1.18 H PTT (Actin FS) 29.9 VBG pH POC VBG pCO2 POC VBG pO2 VBG HCO3 VBG O2 Sat (Daniella) VBG Base Excess Sodium 147 H Potassium 4.1 Chloride 105 Carbon Dioxide 33 H Anion Gap 9 BUN 32.1 H Creatinine 2.0 H Est GFR (CKD-EPI)AfAm 25.55 Est GFR (CKD-EPI)NonAf 22.05 Random Glucose 94 Lactic Acid Calcium 9.6 Total Bilirubin 0.6 AST 36 ALT 19 Alkaline Phosphatase 95 Troponin I 0.03 B-Natriuretic Peptide 8304.6 H Total Protein 6.2 L Albumin 3.1 L 12/24/18 12/24/18 10:00 10:00 WBC RBC Hgb Hct MCV MCH MCHC RDW Plt Count MPV Absolute Neuts (auto) Neutrophils % Lymphocytes % Monocytes % Eosinophils % Basophils % Nucleated RBC % PT with INR INR PTT (Actin FS) VBG pH 7.32 POC VBG pCO2 66.2 H POC VBG pO2 < 49 H VBG HCO3 33.3 H VBG O2 Sat (Daniella) 57.5 L VBG Base Excess 6.7 H Sodium Potassium Chloride Carbon Dioxide Anion Gap BUN Creatinine Est GFR (CKD-EPI)AfAm Est GFR (CKD-EPI)NonAf Random Glucose Lactic Acid 1.6 Calcium Total Bilirubin AST ALT Alkaline Phosphatase Troponin I B-Natriuretic Peptide Total Protein Albumin ASSESSMENT/PLAN: Acute on chronic hypercapneic hypoxic respiratory failure Acute on chronic heart failure, mixed systolic and diastolic Paroxysmal Atrial fibrillation with RVR COPD on home O2 CAD HTN HLD CKD --Given pt's improved clinical status would trial NC and if tolerates can observe on telemetry --Continue Lasix IVP for acute exacerbation likely 2/2 to flash edema from RVR and acute CHF --Echocardiogram to be repeated --Continue NIPPV as needed for work of breathing --Monitor UO and monitor Cr --Daily weights --Avoid steroids at this time due to increased water retention --Continue home rate control with cardizem and Lopressor IV PRN for breakthrough --Continue AC (CHADSvASc >6) FEN: Fluids: Avoid; active diuresis Electrolyte abnormalities: None Nutrition: 1L Fluid restriction PPX: DVT - already on AC GI - Not indicated Dispo: Can monitor on Telemetry given interval improvement of pt with therapy CAse discussed with Dr. Trenton Gilliam, DO - IM PGY-3 Visit type - Emergency Visit Emergency Visit: Yes ED Registration Date: 12/24/18 Care time: The patient presented to the Emergency Department on the above date and was hospitalized for further evaluation of their emergent condition. - New Patient This patient is new to me today: Yes Date on this admission: 12/24/18 - Critical Care Critical Care patient: No
[2018-12-24 14:47] LABS: EPI CELLS 0.8 /HPF (0-5/HPF); HYALINE CASTS 1 /lpf (0-8); URINE APPEARANCE CLEAR; URINE BACTERIA 2.2 /hpf (NEGATIVE); URINE BILIRUBIN NEGATIVE (NEGATIVE); URINE COLOR YELLOW; URINE GLUCOSE (UA) NEGATIVE (NEGATIVE); URINE KETONE NEGATIVE (NEGATIVE); URINE LEUK ESTERASE NEGATIVE (NEGATIVE); URINE NITRITE NEGATIVE (NEGATIVE); URINE PROTEIN 2+ (NEGATIVE); URINE RBC 1 /hpf (0-4); URINE UROBILINOGEN 0.2 mg/dL (0.2-1.0); URINE WBC 0 /hpf (0-5)
--- NOTE | 2018-12-24 14:47 | PN ---
Teaching Attending Note Name of Resident: Laith Gilliam ATTENDING PHYSICIAN STATEMENT I saw and evaluated the patient. I reviewed the resident's note and discussed the case with the resident. I agree with the resident's findings and plan as documented. SUBJECTIVE: Pt seen and examined in the ED. Briefly, 88yo female with h/o HTN, hyperlipidemia, COPD, chronic hypoxic respiratory failure on home O2, paroxysmal atrial fibrillation, CAD, LV systolic/diastolic dysfunction, CKD who was admitted with worsening shortness of breath and chest pain. Placed on BiPAP for respiratory distress. Found to be in rapid atrial fibrillation and decompensated CHF. Given lasix, rate control with improvement. Placed on nasal cannula during interview without distress. OBJECTIVE: Vital Signs Period Temp Pulse Resp BP Sys/Perez Pulse Ox Last 24 Hr 100.5 F-100.5 F 127-167 24-40 91-150/73-113 88-98 Intake & Output 12/21/18 12/22/18 12/23/18 12/24/18 23:59 23:59 23:59 23:59 Weight 61.235 kg Gen: mildly tachypneic on nasal cannula Heart: tachycardic, irregular Lung: decreased breath sounds at the bases Abd: soft, nontender Ext: trace edema CBC, BMP 12/24/18 09:51 12/24/18 10:00 Active Medications Apixaban (Eliquis -) 2.5 mg PO BID KESHAWN Atorvastatin Calcium (Lipitor -) 20 mg PO HS KESHAWN Furosemide (Lasix Injection -) 40 mg IVPUSH DAILY KESHAWN Metoprolol Succinate (Toprol Xl -) 25 mg PO BID KESHAWN Metoprolol Tartrate (Lopressor Injection -) 5 mg IVPUSH Q4H PRN PRN Reason: TACHYCARDIA ASSESSMENT AND PLAN: Acute on Chronic Hypoxic and Hypercapneic Respiratory Failure Acute on Chronic Systolic/Diastolic Heart Failure Atrial Fibrilllation with RVR COPD CAD HTN Hyperlipidemia CKD - continue lasix - monitor urine output, creatinine - daily weights - monitor CXR with diuresis - inhaled bronchodilators - can defer systemic steroids at this time - received empiric antibiotics - f/u UA, cultures - O2 to keep SpO2 >90% - BiPAP as needed to assist in work of breathing but appears improved at this time - rate control - continue anticoagulation - does not require ICU monitoring at this time, can monitor on telemetry - will follow with you, please call if any changes in clinical status Thank you for this consult Justin Chowdhury MD
[2018-12-24] MEDS: dilTIAZem HCL 50 MG/10 ML - 10 ML VIAL IVPUSH PRN (20:25)
[2018-12-24] MEDS: metoPROLOL SUCCINATE 25 MG TAB.SR.24H (FP) PO SCH (21:50)
[2018-12-24] MEDS: APIXABAN 2.5 MG TABLET PO SCH (21:50)
[2018-12-24] MEDS: ATORVASTATIN CA 20 MG TABLET (FP) PO SCH (21:50)
--- NOTE | 2018-12-24 22:15 | HP ---
CHIEF COMPLAINT: SOB PCP: Dr. Amezcua HISTORY OF PRESENT ILLNESS: 88 y/o F, pmh of COPD on home oxygen, asthma, CVA, Gastritis, A-fib on elliquis , pacemaker, CAD, NM, HTN, CHF, HLD, CKD, presents to the hospital c/o constant , sob on exertion of one day duration. Pt reports that she was at home when spontaneously she became sob and fell to the floor, until her daughter came to help her up and bring her to the hospital. Her symptoms worsened since onset till she was treated in the ED. She gives hx of previous admission in October for similar symptoms. She reports being hospitalized 3 times in the past year for sob of breath. She uses oxygen at home consistently. Currently, she reports improvement but is still short of breath. Denies f/c/n/v/chest pain, palpitations, diarrhea, dysuria, numbness and tingling. ER course was notable for: (1) lopressor and diuretics given (2) Oxygen nc (3) CXR- pleural effusions b/l Recent Travel: denies PAST MEDICAL HISTORY: COPD on home oxygen, asthma, CVA, Gastritis, A-fib on elliquis, pacemaker, CAD, NM, HTN, CHF, HLD, CKD, PAST SURGICAL HISTORY: pacemaker implant Social History: Smoking: former smoker for 56 years- 1ppd Alcohol: denies Drugs: denies Family History: Mother: from heart disease Allergies aspirin Allergy (Verified 12/24/18 09:29) HOME MEDICATIONS: Home Medications Medication Instructions Recorded Amlodipine Besylate [Norvasc -] 5 mg PO DAILY 05/22/17 Apixaban [Eliquis] 2.5 mg PO BID 05/22/17 Calcium Carbonate/Vitamin D3 1 each PO WEEKLY 05/22/17 [Calcium 600+D Softgel] Fluticasone/Salmeterol [Advair Hfa 12 gm IH DAILY 05/22/17 230-21 Mcg Inhaler] Lipase/Protease/Amylase [[place] 1 each PO Q8H 05/22/17 36,000 Units Capsule] Metoprolol Succinate 25 mg PO BID 05/22/17 Omeprazole 40 mg PO DAILY 05/22/17 Simvastatin 40 mg PO DAILY 05/22/17 Tiotropium [place] [Spiriva] 2.5 mcg IH BID 05/22/17 Furosemide [Lasix] 40 mg PO DAILY #30 tablet 11/06/18 Valsartan [Diovan] 160 mg PO DAILY 12/24/18 REVIEW OF SYSTEMS CONSTITUTIONAL: Admits: diaphoresis, Absent: fever, chills, generalized weakness, malaise, loss of appetite, weight change HEENT: Absent: eye pain, visual changes CARDIOVASCULAR: Absent: chest pain, syncope, palpitations, irregular heart rate, lightheadedness , RESPIRATORY: Admits: shortness of breath, dyspnea with exertion, cough, Absent: orthopnea, wheezing, stridor, hemoptysis GASTROINTESTINAL: Absent: abdominal pain, abdominal distension, nausea, vomiting, diarrhea, constipation, GENITOURINARY: Absent: dysuria, flank pain, genital pain MUSCULOSKELETAL: Absent: back pain, HEMATOLOGIC/IMMUNOLOGIC: Absent: frequent infections ENDOCRINE: Absent: unexplained weight gain/weight loss NEUROLOGIC: Absent: headache, , dizziness, unsteady gait, seizure, mental status changes, bladder or bowel incontinence PSYCHIATRIC: Absent: anxiety, PHYSICAL EXAMINATION Vital Signs - 24 hr Last Vital Signs Temp Pulse Resp BP Pulse Ox 98 F 114 H 20 113/85 94 L 12/24/18 22:08 12/24/18 22:08 12/24/18 22:08 12/24/18 22:08 12/24/18 18:19 GENERAL: Awake, alert, and fully oriented, in no acute distress. Mild sob EYES: Pupils equal, round and reactive to light, extraocular movements intact, EARS, NOSE, THROAT: oropharynx clear without exudates. Moist mucous membranes. NECK: supple without lymphadenopathy, JVD, or masses. LUNGS: Crackles on lower lung bases b/l. No wheezes HEART: Regular rate and rhythm, normal S1 and S2 without murmur, rub or gallop. ABDOMEN: Soft, nontender, not distended, normoactive bowel sounds, no guarding, no rebound, no masses. No hepatomegaly or splenomegaly. MUSCULOSKELETAL: No CVA tenderness. UPPER EXTREMITIES: 2+ pulses, warm, well-perfused. No cyanosis. No peripheral edema. LOWER EXTREMITIES: 2+ pulses, warm, well-perfused. No peripheral edema. NEUROLOGICAL: Normal speech. PSYCHIATRIC: Cooperative. Good eye contact. Appropriate mood and affect. Laboratory Results - last 24 hr CBC, BMP 12/24/18 09:51 12/24/18 10:00 ASSESSMENT/PLAN: 88 y/o F, pmh of COPD on home oxygen, asthma, CVA, Gastritis, A-fib on elliquis , pacemaker, CAD, NM, HTN, CHF, HLD, CKD, presents c/o sob likely 2/2 exacerbation #CHF exacerbation CXR- b/l pleural effusions PE crackles at lung bases b/l and dry cough Pt on Tele Lasiks 40 IVpush daily Oxygen NC 3L Vital Q4H BCx and UCx ordered #COPD oxygen nc 3L if needed- consider BiPaP #Tachy Metoprolol Tartrate 5mg PRN Diltiazem 10mg Q4H #HTN continue home med- Metoprolol succinate 25 po #A-Fib continue home meds- eliquis 2.5 BID po #HLD continue home meds- atorvastatin #DVT ppx already on eliquis FEN: Sodium controlled diet Dispo: continue lasiks, monitor a-fib, symptomatic management Visit type - Emergency Visit Emergency Visit: Yes ED Registration Date: 12/24/18 Care time: The patient presented to the Emergency Department on the above date and was hospitalized for further evaluation of their emergent condition. - New Patient This patient is new to me today: Yes Date on this admission: 01/02/19 - Critical Care Critical Care patient: No ATTENDING PHYSICIAN STATEMENT I saw and evaluated the patient. I reviewed the resident's note and discussed the case with the resident. I agree with the resident's findings and plan as documented. SUBJECTIVE: OBJECTIVE: ASSESSMENT AND PLAN:
[2018-12-24] MEDS: METOPROLOL TARTRATE 5 MG/5 ML VIAL IVPUSH PRN (23:39)
--- NOTE | 2018-12-24 23:46 | PN ---
Teaching Attending Note Name of Resident: Isiah Casey ATTENDING PHYSICIAN STATEMENT I saw and evaluated the patient. I reviewed the resident's note and discussed the case with the resident. I agree with the resident's findings and plan as documented. Seen and examined on telemetry; please refer to resident note for further historical information; day events noted. Initial issue with patient assignment , assuming care. She is an 88 y/o female with progressive SOB; initially on BiPap for documented mixed respiratory failure now improved and was weaned to NC. Seen by pulmonary and cardiology (Dr. Chowdhury, Dr. Devi; appreciate expert opinion). Telemetry events reviewed as of :12/25. Has a documented hx advanced COPD causing chronic hypoxic RF (3-4L home O2 ATC with occasinal CPAP use, last PFTs unknown, ILD seen on prior CT chest), documented asthma (no baseline peak flow known), CVA, gastritis, paroxysmal afib (on NOAC, s/p ppm), CAD, UT, HTN, HLD, and systolic/diastolic CHF, CKD-IV (creatinine currently @ baseline ~2). Reviewed today's EKG, November 2018 echo (normal LVEF, mild-mod TR w / RVSP 44, mild-mod with 12mmHg gradient), November 2018 CT chest (ILD seen, pulm HTN), Echo 2015 (mod-sev LVEF reduction with mod TR, mild MR), prior mibi 2014 (negative for ischemia). She was given nebs, IV lasix, steroids, and lopressor with improval of her presenting sx. Pulmonary recommended observing off of steroids and continuing nebs; CV agrees with IV diuresis and toprol XL 25 BID with IV cardizem and metorpolol. She will be monitored on the symphony service with pulmonary and CV consultation. Home Medications Medication Instructions Recorded Amlodipine Besylate [Norvasc -] 5 mg PO DAILY 05/22/17 Apixaban [Eliquis] 2.5 mg PO BID 05/22/17 Calcium Carbonate/Vitamin D3 1 each PO WEEKLY 05/22/17 [Calcium 600+D Softgel] Fluticasone/Salmeterol [Advair Hfa 12 gm IH DAILY 05/22/17 230-21 Mcg Inhaler] Lipase/Protease/Amylase [[place]air [place] 1 each PO Q8H 05/22/17 36,000 Units Capsule] Metoprolol Succinate 25 mg PO BID 05/22/17 Omeprazole 40 mg PO DAILY 05/22/17 Simvastatin 40 mg PO DAILY 05/22/[address] [place] [Spiriva] 2.5 mcg IH BID 05/22/17 Furosemide [Lasix] 40 mg PO DAILY #30 tablet 11/06/18 Valsartan [Diovan] 160 mg PO DAILY 12/24/18 VS, labs, imaging reviewed NAD, AAO, resting in bed NC AT EOMI PERRLA Lungs with scattered crackles, w/ sym exp NT ND +BS CN2-12 wnl, no fnd Normal mood, appropriate behavior ASSESSMENT AND PLAN: Patient presents with acute on chronic mixed respiratory failure secondary to acute on chronic HFpEF exacerbation (old HFrEF resolved) that is likely secondary to rate-related issues given the P-AF with RVR. She will be kept on IV diuretics per cardiology and kept on 25 MS BID with telemetry montioring of HR. Monitoring lytes, weights, renal function, closely while on diuresis. Can consider BiPap qHS. Transition back to PO lasix when clear with cardiology. Holding off on steroids as eitology of respiratory failure much more likely cardiac. ILD noted on prior CT, pulmonary HTN likely resultant from advanced COPD. Defer ultim # A on C Resp. Failure (mixed) 2/2 rate-related HFpEF exacerbation # Chronic hypoxic RF 2/2 advanced COPD (staging unknown), O2-dependent with intermittent documented CPAP use # P-AF on NOAC with RVR, rate now improved, s/p PPM # CLBBB # CAD # Hx HTN # Hx HLD # Hx CVA # Likely ILD # Pulmonary HTN # Valvular Heart Disease (, TR) # CKD-IV # Former tobacco abuser
[2018-12-25] MEDS ORDERED: METOPROLOL TARTRATE 5 MG/5 ML VIAL IVPUSH ONE (05:15)
[2018-12-25 07:54] LABS: BILIRUBIN,TOTAL 0.7 mg/dL (0.2-1); BLOOD UREA NITROGEN 52.2 mg/dL (7-18); CALCIUM 9.9 mg/dL (8.5-10.1); CREATININE 2.6 mg/dL (0.55-1.3); POTASSIUM 4.6 mmol/L (3.5-5.1); TOT PROT 6.3 g/dl (6.4-8.2)
[2018-12-25 08:00] LABS: BASO % 0.1 % (0-2.0); HEMATOCRIT 34.8 % (32.4-45.2); HEMOGLOBIN 11.4 GM/dL (10.7-15.3); LYMPH % 4.5 % (8-40); MCH 28.4 pg (25.7-33.7); MCHC 32.7 g/dl (32.0-36.0); MEAN CELL VOLUME 86.8 fl (80-96); MONO % 3.7 % (3.8-10.2); NEUT % 91.7 % (42.8-82.8); PLATELET COUNT 232 K/MM3 (134-434); RBC 4.01 M/mm3 (3.60-5.2); RDW 16.9 % (11.6-15.6); WHITE BLOOD COUNT 10.6 K/mm3 (4.0-10.0)
--- NOTE | 2018-12-25 09:16 | PN ---
Progress Note, Physician History of Present Illness: Remains in rapid afib with dyspnea. Ambulates with walker assistance. - Current Medication List Current Medications: Active Medications Apixaban (Eliquis -) 2.5 mg PO BID [facility] Last Admin: 12/24/18 21:50 Dose: 2.5 mg Atorvastatin Calcium (Lipitor -) 20 mg PO HS [facility] Last Admin: 12/24/18 21:50 Dose: 20 mg Diltiazem HCl (Cardizem Injection -) 10 mg IVPUSH Q4H PRN PRN Reason: TACHYCARDIA Last Admin: 12/24/18 20:25 Dose: 10 mg Furosemide (Lasix Injection -) 40 mg IVPUSH DAILY [facility] Metoprolol Succinate (Toprol Xl -) 25 mg PO BID [facility] Last Admin: 12/24/18 21:50 Dose: 25 mg Metoprolol Tartrate (Lopressor Injection -) 5 mg IVPUSH Q4H PRN PRN Reason: TACHYCARDIA Last Admin: 12/24/18 23:39 Dose: 5 mg - Objective Vital Signs: Vital Signs Temperature 98 F 12/25/18 05:00 Pulse Rate 122 H 12/25/18 05:15 Respiratory Rate 18 12/25/18 05:00 Blood Pressure 133/90 12/25/18 05:15 O2 Sat by Pulse Oximetry (%) 92 L 12/24/18 19:30 Constitutional: Yes: No Distress, Calm Neck: Yes: Supple Cardiovascular: Yes: Tachycardia, Pulse Irregular Respiratory: Yes: Regular, Diminished, On Nasal O2 Gastrointestinal: Yes: Normal Bowel Sounds, Soft Edema: No Labs: CBC, BMP 12/25/18 06:24 12/25/18 06:24 INR, PTT INR 1.18 (0.83-1.09) H 12/24/18 09:43 - ....Imaging EKG: Report Reviewed (Tele: Rapid afib) Problem List - Problems (1) Atrial fibrillation with rapid ventricular response Code(s): I48.91 - UNSPECIFIED ATRIAL FIBRILLATION (2) Chronic anticoagulation Code(s): Z79.01 - ORDERLY (CURRENT) USE OF ANTICOAGULANTS (3) CKD (chronic kidney disease) Code(s): N18.9 - CHRONIC KIDNEY DISEASE, UNSPECIFIED Qualifiers: Chronic kidney disease stage: stage 3 (moderate) Qualified Code(s): N18.3 - Chronic kidney disease, stage 3 (moderate) (4) Acute on chronic diastolic CHF (congestive heart failure) Code(s): I50.33 - ACUTE ON CHRONIC DIASTOLIC (CONGESTIVE) HEART FAILURE (5) Acute on chronic respiratory failure with hypoxia and hypercapnia Code(s): J96.21 - ACUTE AND CHRONIC RESPIRATORY FAILURE WITH HYPOXIA; J96.22 - ACUTE AND CHRONIC RESPIRATORY FAILURE WITH HYPERCAPNIA (6) Pulmonary HTN Code(s): I27.20 - PULMONARY HYPERTENSION, UNSPECIFIED (7) History of COPD Code(s): Z87.09 - PERSONAL HISTORY OF OTHER DISEASES OF THE RESPIRATORY SYSTEM (8) Hyperlipidemia Code(s): E78.5 - HYPERLIPIDEMIA, UNSPECIFIED Qualifiers: Hyperlipidemia type: pure hypercholesterolemia Qualified Code(s): E78.00 - Pure hypercholesterolemia, unspecified; E78.0 - Pure hypercholesterolemia Assessment/Plan 11/03/2018 Echo: Normal LV size and fxn LVEF 55-60%, grade II DD, mild-mod TR RVSP 44 mmHg, mild-mod MG 12 mmHg 11/03/[address]: Emphysema, ILD, pulm HTN 08/16/2015 Echo: Normal LV size with mild cLVH, mod-severe decreased LVEF, mod TR , mild MR, NV 03/09/2015 P=Myoview: No ischemia, LVEF 51% 1. Acute on chronic hypercapneic, hypoxemic respiratory failure referable to 1. Acute on chronic LV diastolic failure with h/o resolved cardiomyopathy in context of 2. Paroxysmal atrial fibrillation with rapid ventricular response [id number] score of 7-8 now on NOAC 3. Home O2-dependent COPD 4. CAD negative MPI study for myocardial ischemia 03/09/2015 5. CLBBBB 6. HTN 7. Hypercholesterolemia 8. History of CVA 9. Acute on CKD PLAN: 1. Resume oral diuresis with monitor diuretic response, renal fxn and electrolytes 2. Increase Lopressor 50 bid with IV Cardizem or Lopressor as needed for rate- control, continue Lipitor 20 qhs and Eliquis 2.5 bid, resume Diovan as hemodynamics tolerate once renal fxn at baseline 3. BD, O2 as needed, observe off steroids and abx
[2018-12-25] MEDS ORDERED: FUROSEMIDE 40 MG/4 ML INJECTABLE VIAL IVPUSH SCH (10:00)
[2018-12-25] MEDS ORDERED: METOPROLOL TARTRATE 25 MG TABLET (FP) PO ONE (10:41)
[2018-12-25] MEDS: metoPROLOL SUCCINATE 25 MG TAB.SR.24H (FP) PO SCH (11:24)
[2018-12-25] MEDS: APIXABAN 2.5 MG TABLET PO SCH ×2 (11:24→22:32)
--- NOTE | 2018-12-25 12:16 | PN ---
Progress Note, Physician History of Present Illness: PULMONARY AWAKE,STILL DYSPNEIC WITH MIN EXERTION.REMAINS IN RAPID AFIB - Current Medication List Current Medications: Active Medications Apixaban (Eliquis -) 2.5 mg PO BID [facility] Last Admin: 12/25/18 11:24 Dose: 2.5 mg Atorvastatin Calcium (Lipitor -) 20 mg PO HS [facility] Last Admin: 12/24/18 21:50 Dose: 20 mg Diltiazem HCl (Cardizem Injection -) 10 mg IVPUSH Q4H PRN PRN Reason: TACHYCARDIA Last Admin: 12/24/18 20:25 Dose: 10 mg Furosemide (Lasix -) 40 mg PO DAILY [facility] Metoprolol Tartrate (Lopressor Injection -) 5 mg IVPUSH Q4H PRN PRN Reason: TACHYCARDIA Last Admin: 12/24/18 23:39 Dose: 5 mg Metoprolol Tartrate (Lopressor -) 50 mg PO BID [facility] - Objective Vital Signs: Vital Signs Temperature 98 F 12/25/18 05:00 Pulse Rate 122 H 12/25/18 05:15 Respiratory Rate 18 12/25/18 05:00 Blood Pressure 133/90 12/25/18 05:15 O2 Sat by Pulse Oximetry (%) 92 L 12/24/18 19:30 Constitutional: Yes: Well Nourished, Calm, Other (MILDLY DYSPNEIC) Eyes: Yes: WNL HENT: Yes: WNL Neck: Yes: WNL Cardiovascular: Yes: Tachycardia, Pulse Irregular, S1, S2 Respiratory: Yes: Diminished Gastrointestinal: Yes: Normal Bowel Sounds, Soft Extremities: Yes: WNL Edema: No Labs: CBC, BMP 12/25/18 06:24 12/25/18 06:24 INR, PTT INR 1.18 (0.83-1.09) H 12/24/18 09:43 Problem List - Problems (1) Acute on chronic diastolic CHF (congestive heart failure) Code(s): I50.33 - ACUTE ON CHRONIC DIASTOLIC (CONGESTIVE) HEART FAILURE (2) Atrial fibrillation with rapid ventricular response Code(s): I48.91 - UNSPECIFIED ATRIAL FIBRILLATION (3) CKD (chronic kidney disease) Code(s): N18.9 - CHRONIC KIDNEY DISEASE, UNSPECIFIED Qualifiers: Chronic kidney disease stage: stage 3 (moderate) Qualified Code(s): N18.3 - Chronic kidney disease, stage 3 (moderate) (4) Chronic anticoagulation Code(s): Z79.01 - [employer]N [employer] OPERATOR (CURRENT) USE OF ANTICOAGULANTS (5) Acute on chronic respiratory failure with hypoxia and hypercapnia Code(s): J96.21 - ACUTE AND CHRONIC RESPIRATORY FAILURE WITH HYPOXIA; J96.22 - ACUTE AND CHRONIC RESPIRATORY FAILURE WITH HYPERCAPNIA (6) FRYE (dyspnea on exertion) Code(s): R06.09 - OTHER FORMS OF DYSPNEA (7) Pulmonary HTN Code(s): I27.20 - PULMONARY HYPERTENSION, UNSPECIFIED (8) History of COPD Code(s): Z87.09 - PERSONAL HISTORY OF OTHER DISEASES OF THE RESPIRATORY SYSTEM Assessment/Plan ASSESSMENT AND PLAN: Acute on Chronic Hypoxic and Hypercapneic Respiratory Failure Acute on Chronic Systolic/Diastolic Heart Failure Atrial Fibrilllation with RVR COPD CAD HTN Hyperlipidemia CKD - continue lasix - monitor urine output, creatinine - daily weights - f/u chest x-ray today - inhaled bronchodilators - O2 to keep SpO2 >90% - BiPAP as needed to assist in work of breathing but appears improved at this time - rate control as per Cardiology - anticoagulation DR HORTON
[2018-12-25] MEDS: METOPROLOL TARTRATE 5 MG/5 ML VIAL IVPUSH PRN (13:20)
[2018-12-25 14:01] LABS: ANISOCYTOSIS 0; MACROCYTOSIS 0; PLATELET ESTIMATE NORMAL
[2018-12-25 15:53] LABS: ARTERIAL BLD GAS O2 SATURATION 89.7 % (95-98); ARTERIAL BLOOD GAS BASE EXCESS 0.4 meq/l (-2-2); ARTERIAL BLOOD GAS PCO2 46.9 mmHg (35-45); ARTERIAL BLOOD GAS PO2 67.7 mmHg (80-100); ARTERIAL BLOOD GAS pH 7.36 (7.35-7.45)
[2018-12-25 16:05] LABS: ALLENS TEST POSITIVE
--- NOTE | 2018-12-25 16:24 | ECHO ---
Name: THOMAS RYAN Exam:Adult Echocardiogram Study Date: 12/25/2018 01:36 PM Age: 88 yrs Reason For Study: acute respiratory failure Height: 58 in Weight: 135 lb BSA: 1.5 m2 MMode/2D Measurements & Calculations IVSd: 1.4 cm Ao root diam: 3.0 cm LVIDd: 3.7 cm LVPWd: 1.4 cm EDV(Teich): 58.5 ml LVOT diam: 2.0 cm TAPSE: 1.2 cm RV S Tejas: 12.3 cm/sec Doppler Measurements & Calculations Ao V2 max: 170.4 cm/sec MVA(VTI): 1.4 cm2 Ao max P.6 mmHg MV V2 max: 130.3 cm/sec Ao V2 mean: 110.6 cm/sec MV max P.8 mmHg Ao mean P.9 mmHg MV V2 mean: 85.8 cm/sec Ao V2 VTI: 27.3 cm MV mean P.4 mmHg MV V2 VTI: 28.4 cm BRYAN(I,D): 1.4 cm2 BRYAN(V,D): 1.2 cm2 LV V1 max P.9 mmHg MR max tejas: 409.8 cm/sec LV V1 mean P.1 mmHg MR max P.5 mmHg LV V1 max: 68.1 cm/sec LV V1 mean: 50.5 cm/sec LV V1 VTI: 12.6 cm SV(LVOT): 38.5 ml TR max tejas: 274.5 cm/sec TR max P.5 mmHg RVSP(TR): 40.5 mmHg PA V2 max: 76.4 cm/sec Med Peak E' Tejas: 5.8 cm/sec PA max P.4 mmHg Lat Peak E' [place]: 6.4 cm/sec RAP systole: 10.0 mmHg Procedure A complete two-dimensional transthoracic echocardiogram was performed (2D, M-mode, Doppler and color flow Doppler). The study was technically difficult with many images being suboptimal in quality. Left Ventricle The left ventricular size, thickness and function are normal. The left ventricular ejection fraction is normal. Ejection Fraction = 55-60%. Regional wall motion abnormalities cannot be excluded due to limi lashay visualization. Right Ventricle The right ventricle is normal in size and function. Atria Normal left and right atrial size and function. Mitral Valve There is moderate mitral regurgitation. Tricuspid Valve There is moderate tricuspid regurgitation. Right ventricular systolic pressure is elevated at 30-40mm Hg. Aortic Valve Mild valvular aortic stenosis. No aortic regurgitation is present. Pulmonic Valve There is no pulmonic valvular regurgitation. Great Vessels The aortic root is normal size. Pericardium/Pleura There is no pericardial effusion. Interpretation Summary The study was technically difficult with many images being suboptimal in quality. The left ventricular size, thickness and function are normal The right ventricle is normal in size and function. There is moderate mitral regurgitation. There is moderate tricuspid regurgitation. Right ventricular systolic pressure is elevated at 30-40mmHg. Mild valvular aortic stenosis. MD Jose Alberto Burgos 12/25/2018 04:24 PM
--- NOTE | 2018-12-25 16:32 | PN ---
Physical Exam: SUBJECTIVE: Patient seen and examined at bedside. pt states that her breathing is improving. OBJECTIVE: Vital Signs Period Temp Pulse Resp BP Sys/Eprez Pulse Ox Last 24 Hr 97.5 F-98.4 F 112-143 18-24 104-133/60-90 92-96 GENERAL: The patient is awake, alert, and fully oriented, in no acute distress. pt is on NC LUNGS: Breath sounds equal, clear to auscultation bilaterally, no wheezes, no crackles, no accessory muscle use. HEART: tachycardic and irregular rhythm, S1, S2 without murmur, rub or gallop. ABDOMEN: Soft, nontender, nondistended, normoactive bowel sounds, no guarding, no rebound, no hepatosplenomegaly, no masses. EXTREMITIES: 2+ pulses, warm, well-perfused, no edema. SKIN: Warm, dry, normal turgor, no rashes or lesions noted Laboratory Results - last 24 hr 12/25/18 12/25/18 12/25/18 06:24 06:24 15:33 WBC 10.6 H RBC 4.01 Hgb 11.4 Hct 34.8 MCV 86.8 MCH 28.4 MCHC 32.7 RDW 16.9 H Plt Count 232 MPV 9.0 Absolute Neuts (auto) 9.7 H Neutrophils % 91.7 H Neutrophils % (Manual) 92.6 H Band Neutrophils % 0.0 Lymphocytes % 4.5 L D Lymphocytes % (Manual) 6.3 L D Monocytes % 3.7 L Monocytes % (Manual) 1 L D Eosinophils % 0.0 D Eosinophils % (Manual) 0.0 Basophils % 0.1 Basophils % (Manual) 0.0 Myelocytes % (Man) 0 Promyelocytes % (Man) 0 Blast Cells % (Manual) 0 Nucleated RBC % 0 Metamyelocytes 0 Hypochromia 0 Platelet Estimate Normal Platelet Comment Present Polychromasia 0 Poikilocytosis 0 Anisocytosis 0 Microcytosis 0 Macrocytosis 0 Puncture Site Left radial ABG pH 7.36 ABG pCO2 at Pt Temp 46.9 H ABG pO2 at Pt Temp 67.7 L ABG HCO3 25.6 ABG O2 Sat (Measured) 89.7 L ABG O2 Content 14.0 ABG Base Excess 0.4 Ankit Test Positive Oxygen Flow Rate Yes Sodium 141 Potassium 4.6 Chloride 101 Carbon Dioxide 31 Anion Gap 9 BUN 52.2 H Creatinine 2.6 H Est GFR (CKD-EPI)AfAm 18.61 Est GFR (CKD-EPI)NonAf 16.06 Random Glucose 147 H Calcium 9.9 Total Bilirubin 0.7 AST 40 H ALT 20 Alkaline Phosphatase 89 Total Protein 6.3 L Albumin 3.0 L Current Medications Apixaban (Eliquis -) 2.5 mg PO BID [facility] Last Admin: 12/25/18 11:24 Dose: 2.5 mg Atorvastatin Calcium (Lipitor -) 20 mg PO HS [facility] Last Admin: 12/24/18 21:50 Dose: 20 mg Diltiazem HCl (Cardizem Injection -) 10 mg IVPUSH Q4H PRN PRN Reason: TACHYCARDIA Last Admin: 12/24/18 20:25 Dose: 10 mg Furosemide (Lasix -) 40 mg PO DAILY [facility] Metoprolol Tartrate (Lopressor Injection -) 5 mg IVPUSH Q4H PRN PRN Reason: TACHYCARDIA Last Admin: 12/25/18 13:20 Dose: 5 mg Metoprolol Tartrate (Lopressor -) 50 mg PO BID [facility] ASSESSMENT/PLAN: 88 yo F PMH COPD on home O2, Afib on eliquis, CVA, CAD, LA, HTN, HLD, CKD ( baseline Cr ~ 2.3) presented to the hospital with SOB on exertion beginning 4 months ago. pt states that symptoms worsened day prior to admission. In ED pt was found hypoxic and in Afib w/ RVR Afib w/ RVR -s/p lopressor 5mg IV x 3 -c/w diltiazem 10 mg for rate control -cardiology recs appreciated -monitor on tele -continue w/ lopressor 50 bid -cardio recs appreciated Acute on chronic HFpEF -Echo shows normal LV fxn, moderateMR, moderate TR, RV Pressure elevated at 30- 40mmHg, mild -c/w lasix 40 -daily weights -I&O -cardiology recs appreciated Acute on chronic hypoxic respiratory failure -required bipap on admission -saturating well on 2L NC -likely 2/2 Afib w/ RVR vs volume overload -Pulmonary recs appreciated Leukocytosis -rxtive -Tmax on admission 100.5 -s/p Vanc , Zosyn in ED -UA , CXR reviewed -downtrending -continue to hold Abx HLD -c/w statin DVTppx -c/w home eliquis Dispo: monitor on tele until pt is medically optimized , possible cardiac rehab on DC Visit type - Emergency Visit Emergency Visit: No - New Patient This patient is new to me today: Yes Date on this admission: 12/25/18 - Critical Care Critical Care patient: No - Discharge Referral Referred to [facility] No ATTENDING PHYSICIAN STATEMENT I saw and evaluated the patient. I reviewed the resident's note and discussed the case with the resident. I agree with the resident's findings and plan as documented. SUBJECTIVE: OBJECTIVE: ASSESSMENT AND PLAN:
--- NOTE | 2018-12-25 16:42 | PN ---
Teaching Attending Note Name of Resident: Ilaina Steele ATTENDING PHYSICIAN STATEMENT I saw and evaluated the patient. I reviewed the resident's note and discussed the case with the resident. I agree with the resident's findings and plan as documented. SUBJECTIVE:c/o dyspnea. states she feels better than on arrival. denies Cp, fever, chills, N/v/C/D. claims medication compliance and that she did not miss any medications. no changes in diet. OBJECTIVE: Last Vital Signs Temp Pulse Resp BP Pulse Ox 98.4 F 125 H 20 106/88 96 12/25/18 14:00 12/25/18 14:00 12/25/18 14:00 12/25/18 14:00 12/25/18 09:00 Intake & Output 12/22/18 12/23/18 12/24/18 12/25/18 23:59 23:59 23:59 23:59 Intake Total 300 250 Balance 300 250 Weight 135 lb General NAD CV S1 S2 tachy irregular Lungs B/L crackles Abdomen soft NT/ND extremities 1+ pitting edema ASSESSMENT AND PLAN: 88yo f wtih PMH COPD on 2L NC, DM, Systolic CHF, and dyslipidemia presented to the Er wtih progressive worsening shortness of breath and found to be hypoxic with afib with RVR 1. Acute on chronic hypoxic respiratory failure- requiring bipap on arrival. currently on home 2L NC saturating 92%. likely due to volume overload vs afib with RVR. will cont to manage both. no indication for further steroids. pulmonary on board 2. Acute on chronic systolic CHF- started on lasix 40mg IV. will monitor electrolytes. daily weights. strict I&O. will d/w cardio if would be a candidate for entresto once stablized. check echo 3. afib with RVR- s/p metoprolol IV x3 and cardizem IV given. home dose of metoprolol given and still above goal. will increase dose. titrate as needed to optimize. echo pending. cardio on board 3. Leukocytosis- liekly reactive. had low grade fever 100.5. given vanco and zosyn in the ER. UA and CXR no signs of infection. leukocytosis trending down and afebrile. will hold abx at this time. f/u Cx 4. DM- hold oral agents. iss and bgm 5. dyslipidemia-statin 6. DVT ppx- on eliquis 7. spoke with daughter present at bedside. all questions answered. agreeable to outpatient cardiac rehab on release
[2018-12-25] MEDS: METOPROLOL TARTRATE 50 MG TABLET (FP) PO SCH (22:32)
[2018-12-25] MEDS: ATORVASTATIN CA 20 MG TABLET (FP) PO SCH (22:32)
[2018-12-26 07:42] LABS: HEMATOCRIT 36.8 % (32.4-45.2); HEMOGLOBIN 11.7 GM/dL (10.7-15.3); MCH 27.9 pg (25.7-33.7); MCHC 31.9 g/dl (32.0-36.0); MEAN CELL VOLUME 87.6 fl (80-96); MEAN PLT VOLUME 8.8 fl (7.5-11.1); PLATELET COUNT 258 K/MM3 (134-434); RDW 17.2 % (11.6-15.6); WHITE BLOOD COUNT 15.3 K/mm3 (4.0-10.0)
[2018-12-26 08:07] LABS: BLOOD UREA NITROGEN 69.6 mg/dL (7-18); CALCIUM 9.5 mg/dL (8.5-10.1); CREATININE 2.7 mg/dL (0.55-1.3); MAGNESIUM 2.6 mg/dL (1.8-2.4); PHOSPHOROUS 5.2 mg/dL (2.5-4.9)
[2018-12-26] MEDS: APIXABAN 2.5 MG TABLET PO SCH ×2 (10:06→22:12)
[2018-12-26] MEDS: FUROSEMIDE 40 MG TABLET (FP) PO SCH (10:06)
[2018-12-26] MEDS: METOPROLOL TARTRATE 50 MG TABLET (FP) PO SCH ×2 (10:06→22:12)
--- NOTE | 2018-12-26 10:27 | PN ---
Progress Note, Physician History of Present Illness: Remains in rapid afib with dyspnea. Ambulates with walker assistance. - Current Medication List Current Medications: Active Medications Apixaban (Eliquis -) 2.5 mg PO BID [facility] Last Admin: 12/26/18 10:06 Dose: 2.5 mg Atorvastatin Calcium (Lipitor -) 20 mg PO HS [facility] Last Admin: 12/25/18 22:32 Dose: 20 mg Diltiazem HCl (Cardizem Injection -) 10 mg IVPUSH Q4H PRN PRN Reason: TACHYCARDIA Last Admin: 12/24/18 20:25 Dose: 10 mg Furosemide (Lasix -) 40 mg PO DAILY [facility] Last Admin: 12/26/18 10:06 Dose: 40 mg Metoprolol Tartrate (Lopressor Injection -) 5 mg IVPUSH Q4H PRN PRN Reason: TACHYCARDIA Last Admin: 12/25/18 13:20 Dose: 5 mg Metoprolol Tartrate (Lopressor -) 50 mg PO BID [facility] Last Admin: 12/26/18 10:06 Dose: 50 mg - Objective Vital Signs: Vital Signs Temperature 97.6 F 12/26/18 05:51 Pulse Rate 106 H 12/26/18 05:51 Respiratory Rate 17 12/26/18 05:51 Blood Pressure 131/68 12/26/18 05:51 O2 Sat by Pulse Oximetry (%) 92 L 12/25/18 21:00 Constitutional: Yes: No Distress, Calm Neck: Yes: Supple Cardiovascular: Yes: Tachycardia, Pulse Irregular Respiratory: Yes: Regular, Diminished, On Nasal O2 Gastrointestinal: Yes: Normal Bowel Sounds, Soft Edema: Yes Edema: LLE: 1+, RLE: 1+ Labs: CBC, BMP 12/26/18 06:08 12/26/18 06:08 INR, PTT INR 1.18 (0.83-1.09) H 12/24/18 09:43 - ....Imaging Chest X-ray: Report Reviewed (Improved congestion) EKG: Report Reviewed (Tele: Rapid afib) Problem List - Problems (1) Atrial fibrillation with rapid ventricular response Code(s): I48.91 - UNSPECIFIED ATRIAL FIBRILLATION (2) Chronic anticoagulation Code(s): Z79.01 - SIGNAL MAINTENANCE TECHNICIAN (CURRENT) USE OF ANTICOAGULANTS (3) CKD (chronic kidney disease) Code(s): N18.9 - CHRONIC KIDNEY DISEASE, UNSPECIFIED Qualifiers: Chronic kidney disease stage: stage 3 (moderate) Qualified Code(s): N18.3 - Chronic kidney disease, stage 3 (moderate) (4) Acute on chronic diastolic CHF (congestive heart failure) Code(s): I50.33 - ACUTE ON CHRONIC DIASTOLIC (CONGESTIVE) HEART FAILURE (5) Acute on chronic respiratory failure with hypoxia and hypercapnia Code(s): J96.21 - ACUTE AND CHRONIC RESPIRATORY FAILURE WITH HYPOXIA; J96.22 - ACUTE AND CHRONIC RESPIRATORY FAILURE WITH HYPERCAPNIA (6) Pulmonary HTN Code(s): I27.20 - PULMONARY HYPERTENSION, UNSPECIFIED (7) History of COPD Code(s): Z87.09 - PERSONAL HISTORY OF OTHER DISEASES OF THE RESPIRATORY SYSTEM (8) Hyperlipidemia Code(s): E78.5 - HYPERLIPIDEMIA, UNSPECIFIED Qualifiers: Hyperlipidemia type: pure hypercholesterolemia Qualified Code(s): E78.00 - Pure hypercholesterolemia, unspecified; E78.0 - Pure hypercholesterolemia Assessment/Plan 11/03/2018 Echo: Normal LV size and fxn LVEF 55-60%, grade II DD, mild-mod TR RVSP 44 mmHg, mild-mod MG 12 mmHg 11/03/[address]: Emphysema, ILD, pulm HTN 08/16/2015 Echo: Normal LV size with mild cLVH, mod-severe decreased LVEF, mod TR , mild MR, W[place] 03/09/2015 P=Myoview: No ischemia, LVEF 51% 1. Acute on chronic hypercapneic, hypoxemic respiratory failure referable to 2. Acute on chronic LV diastolic failure with h/o resolved cardiomyopathy in context of 3. Paroxysmal atrial fibrillation with rapid ventricular response [id number] score of 7-8 now on NOAC 4. 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 CAD negative MPI study for myocardial ischemia 03/09/2015 6. CLBBBB 7. HTN 8. Hypercholesterolemia 9. History of CVA 10. Acute on CKD PLAN: 1. Resume oral diuresis Lasix 40 qd with monitor diuretic response, renal fxn and electrolytes 2. Increased Lopressor 50 bid and add Cardizem CD 120 qd with IV Cardizem or Lopressor as needed for rate-control, continue Lipitor 20 qhs and Eliquis 2.5 bid, resume Diovan as hemodynamics tolerate once renal fxn at baseline 3. BD, O2 as needed, observe off steroids and abx
--- NOTE | 2018-12-26 10:36 | PN ---
Progress Note, Physician History of Present Illness: PULMONARY ALERT,SITTING UP IN BED,LESS DYSPNEIC. HR 110 AFIB - Current Medication List Current Medications: Active Medications Apixaban (Eliquis -) 2.5 mg PO BID [facility] Last Admin: 12/26/18 10:06 Dose: 2.5 mg Atorvastatin Calcium (Lipitor -) 20 mg PO HS [facility] Last Admin: 12/25/18 22:32 Dose: 20 mg Diltiazem HCl (Cardizem Injection -) 10 mg IVPUSH Q4H PRN PRN Reason: TACHYCARDIA Last Admin: 12/24/18 20:25 Dose: 10 mg Furosemide (Lasix -) 40 mg PO DAILY [facility] Last Admin: 12/26/18 10:06 Dose: 40 mg Metoprolol Tartrate (Lopressor Injection -) 5 mg IVPUSH Q4H PRN PRN Reason: TACHYCARDIA Last Admin: 12/25/18 13:20 Dose: 5 mg Metoprolol Tartrate (Lopressor -) 50 mg PO BID [facility] Last Admin: 12/26/18 10:06 Dose: 50 mg - Objective Vital Signs: Vital Signs Temperature 97.6 F 12/26/18 05:51 Pulse Rate 106 H 12/26/18 05:51 Respiratory Rate 17 12/26/18 05:51 Blood Pressure 131/68 12/26/18 05:51 O2 Sat by Pulse Oximetry (%) 92 L 12/25/18 21:00 Constitutional: Yes: Well Nourished, Calm Eyes: Yes: WNL HENT: Yes: WNL Neck: Yes: WNL Cardiovascular: Yes: Tachycardia, Pulse Irregular, S1, S2 Respiratory: Yes: Diminished Gastrointestinal: Yes: Normal Bowel Sounds, Soft Extremities: Yes: WNL Edema: Yes Labs: CBC, BMP 12/26/18 06:08 12/26/18 06:08 INR, PTT INR 1.18 (0.83-1.09) H 12/24/18 09:43 - ....Imaging Chest X-ray: Report Reviewed, Image Reviewed (less congestion bilaterally) Problem List - Problems (1) Acute on chronic diastolic CHF (congestive heart failure) Code(s): I50.33 - ACUTE ON CHRONIC DIASTOLIC (CONGESTIVE) HEART FAILURE (2) Atrial fibrillation with rapid ventricular response Code(s): I48.91 - UNSPECIFIED ATRIAL FIBRILLATION (3) CKD (chronic kidney disease) Code(s): N18.9 - CHRONIC KIDNEY DISEASE, UNSPECIFIED Qualifiers: Qualified Code(s): N18.3 - Chronic kidney disease, stage 3 (moderate) (4) Chronic anticoagulation Code(s): Z79.01 - [facility] (CURRENT) USE OF ANTICOAGULANTS (5) Acute on chronic respiratory failure with hypoxia and hypercapnia Code(s): J96.21 - ACUTE AND CHRONIC RESPIRATORY FAILURE WITH HYPOXIA; J96.22 - ACUTE AND CHRONIC RESPIRATORY FAILURE WITH HYPERCAPNIA (6) FRYE (dyspnea on exertion) Code(s): R06.09 - OTHER FORMS OF DYSPNEA (7) Pulmonary HTN Code(s): I27.20 - PULMONARY HYPERTENSION, UNSPECIFIED (8) History of COPD Code(s): Z87.09 - PERSONAL HISTORY OF OTHER DISEASES OF THE RESPIRATORY SYSTEM Assessment/Plan ASSESSMENT AND PLAN: Acute on Chronic Hypoxic and Hypercapneic Respiratory Failure Acute on Chronic Systolic/Diastolic Heart Failure Atrial Fibrilllation with RVR PULMONARY HTN COPD CAD HTN Hyperlipidemia CKD - lasix - monitor urine output, creatinine - daily weights - inhaled bronchodilators - O2 to keep SpO2 >90% - BiPAP as needed to assist in work of breathing - rate control as per Cardiology - nancy HORTON
[2018-12-26] MEDS: dilTIAZem HCL 50 MG/10 ML - 10 ML VIAL IVPUSH PRN (11:03)
--- NOTE | 2018-12-26 12:35 | PN ---
Teaching Attending Note Name of Resident: Iliana Steele ATTENDING PHYSICIAN STATEMENT I saw and evaluated the patient. I reviewed the resident's note and discussed the case with the resident. I agree with the resident's findings and plan as documented. SUBJECTIVE:c/o shortness of breath assoc with palpitations. denies fever,c hills , cough, N/V/C/D, no orthopnea OBJECTIVE: Last Vital Signs Temp Pulse Resp BP Pulse Ox 98.2 F 110 H 18 121/76 92 L 12/26/18 10:00 12/26/18 10:00 12/26/18 10:00 12/26/18 10:00 12/26/18 09:00 General NAD CV S1 S2 tachy irregular Lungs CTA B/L no wheezing/rales/rhonchi Abdomen soft NT/ND extremities trace pitting edema ASSESSMENT AND PLAN: 88yo f wtih PMH COPD on 2L NC, DM, Systolic CHF, and dyslipidemia presented to the Er wtih progressive worsening shortness of breath and found to be hypoxic with afib with RVR 1. Acute on chronic hypoxic respiratory failure- requiring bipap on arrival. currently on home 3L NC saturating 92%. likely due to volume overload vs afib with RVR. will cont to manage both. no indication for further steroids. pulmonary on board 2. Acute on chronic systolic CHF-clinically euvolemic. switched to lasix po today. echo noted. cardio on board. 3. afib with RVR- remains uncontrolled. start standing dose of cardizem. on metoprolol. titrate as needed to optimize control. cardio on board 3. Leukocytosis- liekly reactive. normalized. no fevers. no signs of infection. hold abx. 4. DM- hold oral agents. iss and bgm 5. dyslipidemia-statin 6. DVT ppx- on eliquis
--- NOTE | 2018-12-26 14:29 | PN ---
Physical Exam: SUBJECTIVE: Patient seen and examined at bedside. pt states she feels sob. pt was seen sitting, talking, and eating breakfast OBJECTIVE: Vital Signs Period Temp Pulse Resp BP Sys/Perez Pulse Ox Last 24 Hr 97.6 F-99.1 F 106-115 17-20 100-131/63-82 92-92 GENERAL: The patient is awake, alert, and fully oriented, in no acute distress. LUNGS: Breath sounds equal, clear to auscultation bilaterally, no wheezes, no crackles, no accessory muscle use. HEART:tachycardic and irregular rhythm, S1, S2 without murmur, rub or gallop. ABDOMEN: Soft, nontender, nondistended, normoactive bowel sounds, no guarding EXTREMITIES: 2+ pulses, warm, well-perfused, no edema. SKIN: Warm, dry, normal turgor, no rashes or lesions noted Laboratory Results - last 24 hr 12/25/18 12/26/18 12/26/18 15:33 06:08 06:08 WBC 15.3 H RBC 4.20 Hgb 11.7 Hct 36.8 MCV 87.6 MCH 27.9 MCHC 31.9 L RDW 17.2 H Plt Count 258 MPV 8.8 Puncture Site Left radial ABG pH 7.36 ABG pCO2 at Pt Temp 46.9 H ABG pO2 at Pt Temp 67.7 L ABG HCO3 25.6 ABG O2 Sat (Measured) 89.7 L ABG O2 Content 14.0 ABG Base Excess 0.4 Ankit Test Positive Oxygen Flow Rate Yes Sodium 142 Potassium 5.0 Chloride 102 Carbon Dioxide 32 Anion Gap 8 BUN 69.6 H Creatinine 2.7 H Est GFR (CKD-EPI)AfAm 17.78 Est GFR (CKD-EPI)NonAf 15.34 Random Glucose 122 H Calcium 9.5 Phosphorus 5.2 H Magnesium 2.6 H Current Medications Apixaban (Eliquis -) 2.5 mg PO BID [facility] Last Admin: 12/26/18 10:06 Dose: 2.5 mg Atorvastatin Calcium (Lipitor -) 20 mg PO HS [facility] Last Admin: 12/25/18 22:32 Dose: 20 mg Diltiazem HCl (Cardizem Injection -) 10 mg IVPUSH Q4H PRN PRN Reason: TACHYCARDIA Last Admin: 12/26/18 11:03 Dose: 10 mg Diltiazem HCl (Cardizem Cd -) 120 mg PO DAILY [facility] Last Admin: 12/26/18 12:45 Dose: 120 mg Furosemide (Lasix -) 40 mg PO DAILY [facility] Last Admin: 12/26/18 10:06 Dose: 40 mg Metoprolol Tartrate (Lopressor Injection -) 5 mg IVPUSH Q4H PRN PRN Reason: TACHYCARDIA Last Admin: 12/25/18 13:20 Dose: 5 mg Metoprolol Tartrate (Lopressor -) 50 mg PO BID [facility] Last Admin: 12/26/18 10:06 Dose: 50 mg ASSESSMENT/PLAN: 88 yo F PMH COPD on home O2, Afib on eliquis, CVA, CAD, AR, HTN, HLD, CKD ( baseline Cr ~ 2.3) presented to the hospital with SOB on exertion beginning 4 months ago. pt states that symptoms worsened day prior to admission. In ED pt was found hypoxic and in Afib w/ RVR Afib w/ RVR -s/p lopressor 5mg IV x 3 -cardiology recs appreciated -monitor on tele -continue w/ lopressor 50 bid -c/w cardizem 20 mg qd as per cardio recs -cardio recs appreciated Acute on chronic HFpEF -Echo shows normal LV fxn, moderateMR, moderate TR, RV Pressure elevated at 30- 40mmHg, mild -c/w lasix 40 -daily weights -I&O -cardiology recs appreciated -rpt CXR reviewed by me and is improving Acute on chronic hypoxic respiratory failure -required bipap on admission, continue bipap as needed -saturating well on 3L NC -likely 2/2 Afib w/ RVR vs volume overload -Pulmonary recs appreciated Leukocytosis -rxtive -Tmax on admission 100.5. pt currently afebrile -s/p Vanc , Zosyn in ED -UA , CXR reviewed -downtrending -continue to hold Abx HLD -c/w statin DVTppx -c/w home eliquis Dispo: monitor on tele until pt is medically optimized , possible cardiac rehab on DC Visit type - Emergency Visit Emergency Visit: No - New Patient This patient is new to me today: No - Critical Care Critical Care patient: No - Discharge Referral Referred to [facility] Med P.C.: No ATTENDING PHYSICIAN STATEMENT I saw and evaluated the patient. I reviewed the resident's note and discussed the case with the resident. I agree with the resident's findings and plan as documented. SUBJECTIVE: OBJECTIVE: ASSESSMENT AND PLAN:
[2018-12-26] MEDS: ATORVASTATIN CA 20 MG TABLET (FP) PO SCH (22:13)
[2018-12-27 07:25] LABS: HEMOGLOBIN 12.3 GM/dL (10.7-15.3); MCHC 32.5 g/dl (32.0-36.0); MEAN CELL VOLUME 89.1 fl (80-96); MEAN PLT VOLUME 8.5 fl (7.5-11.1); PLATELET COUNT 274 K/MM3 (134-434); RBC 4.26 M/mm3 (3.60-5.2); RDW 17.1 % (11.6-15.6); WHITE BLOOD COUNT 14.5 K/mm3 (4.0-10.0)
--- NOTE | 2018-12-27 08:42 | PN ---
Progress Note, Physician History of Present Illness: PULMONARY AWAKE,SITTING UP ON BED,C/O SOB - Current Medication List Current Medications: Active Medications Apixaban (Eliquis -) 2.5 mg PO BID [facility] Last Admin: 12/26/18 22:12 Dose: 2.5 mg Atorvastatin Calcium (Lipitor -) 20 mg PO HS [facility] Last Admin: 12/26/18 22:13 Dose: 20 mg Diltiazem HCl (Cardizem Injection -) 10 mg IVPUSH Q4H PRN PRN Reason: TACHYCARDIA Last Admin: 12/26/18 11:03 Dose: 10 mg Diltiazem HCl (Cardizem Cd -) 120 mg PO DAILY [facility] Last Admin: 12/26/18 12:45 Dose: 120 mg Furosemide (Lasix -) 40 mg PO DAILY [facility] Last Admin: 12/26/18 10:06 Dose: 40 mg Metoprolol Tartrate (Lopressor Injection -) 5 mg IVPUSH Q4H PRN PRN Reason: TACHYCARDIA Last Admin: 12/25/18 13:20 Dose: 5 mg Metoprolol Tartrate (Lopressor -) 50 mg PO BID [facility] Last Admin: 12/26/18 22:12 Dose: 50 mg - Objective Vital Signs: Vital Signs Temperature 97.9 F 12/27/18 05:00 Pulse Rate 96 H 12/27/18 05:00 Respiratory Rate 20 12/27/18 05:00 Blood Pressure 132/84 12/27/18 05:00 O2 Sat by Pulse Oximetry (%) 95 12/26/18 21:00 Constitutional: Yes: Well Nourished, Calm Eyes: Yes: WNL HENT: Yes: WNL Neck: Yes: WNL Cardiovascular: Yes: Pulse Irregular, S1, S2 Respiratory: Yes: Diminished, Rales (FEW CRACKLES ISAI) Gastrointestinal: Yes: Normal Bowel Sounds, Soft Extremities: Yes: WNL Edema: No Labs: CBC, BMP 12/27/18 05:55 12/26/18 06:08 INR, PTT INR 1.18 (0.83-1.09) H 12/24/18 09:43 Problem List - Problems (1) Acute on chronic diastolic CHF (congestive heart failure) Code(s): I50.33 - ACUTE ON CHRONIC DIASTOLIC (CONGESTIVE) HEART FAILURE (2) Atrial fibrillation with rapid ventricular response Code(s): I48.91 - UNSPECIFIED ATRIAL FIBRILLATION (3) CKD (chronic kidney disease) Code(s): N18.9 - CHRONIC KIDNEY DISEASE, UNSPECIFIED Qualifiers: Chronic kidney disease stage: stage 3 (moderate) Qualified Code(s): N18.3 - Chronic kidney disease, stage 3 (moderate) (4) Chronic anticoagulation Code(s): Z79.01 - [employer]EM[employer] HEL[employer] (CURRENT) USE OF ANTICOAGULANTS (5) Acute on chronic respiratory failure with hypoxia and hypercapnia Code(s): J96.21 - ACUTE AND CHRONIC RESPIRATORY FAILURE WITH HYPOXIA; J96.22 - ACUTE AND CHRONIC RESPIRATORY FAILURE WITH HYPERCAPNIA (6) FRYE (dyspnea on exertion) Code(s): R06.09 - OTHER FORMS OF DYSPNEA (7) Pulmonary HTN Code(s): I27.20 - PULMONARY HYPERTENSION, UNSPECIFIED (8) History of COPD Code(s): Z87.09 - PERSONAL HISTORY OF OTHER DISEASES OF THE RESPIRATORY SYSTEM Assessment/Plan ASSESSMENT AND PLAN: Acute on Chronic Hypoxic and Hypercapneic Respiratory Failure Acute on Chronic Systolic/Diastolic Heart Failure Atrial Fibrilllation with RVR improved PULMONARY HTN COPD CAD HTN Hyperlipidemia CKD - lasix - monitor urine output, creatinine - daily weights - inhaled bronchodilators - O2 to keep SpO2 >90% - BiPAP as needed to assist in work of breathing - rate control as per Cardiology - nancy HORTON
[2018-12-27 09:09] LABS: BLOOD UREA NITROGEN 89.6 mg/dL (7-18); CALCIUM 9.5 mg/dL (8.5-10.1); CREATININE 2.9 mg/dL (0.55-1.3); MAGNESIUM 2.5 mg/dL (1.8-2.4); PHOSPHOROUS 4.9 mg/dL (2.5-4.9); POTASSIUM 4.9 mmol/L (3.5-5.1)
[2018-12-27] MEDS: FUROSEMIDE 40 MG TABLET (FP) PO SCH (09:26)
[2018-12-27] MEDS: METOPROLOL TARTRATE 50 MG TABLET (FP) PO SCH ×2 (09:26→22:47)
[2018-12-27] MEDS: APIXABAN 2.5 MG TABLET PO SCH ×2 (09:26→22:47)
--- NOTE | 2018-12-27 12:02 | PN ---
Progress Note (short form) - Note Progress Note: c/o abodminal distention. states this is her initial feeling when feeling too much fluid on her. SOB worse this AM but feeling better now. admits to no BM since arrival. nikolas CP, palpitation, N/V/D Current Medications Generic Name Dose Route Start Last Admin Trade Name Freq PRN Reason Stop Dose Admin Acetaminophen 650 mg 12/27/18 09:34 Tylenol - PO Q6H PRN pain Apixaban 2.5 mg 12/24/18 22:00 12/27/18 09:26 Eliquis - PO 2.5 mg BID [facility] Administration Atorvastatin Calcium 20 mg 12/24/18 22:00 12/26/18 22:13 Lipitor - PO 20 mg HS [facility] Administration Diltiazem HCl 10 mg 12/24/18 20:08 12/26/18 11:03 Cardizem Injection - IVPUSH 10 mg Q4H PRN Administration TACHYCARDIA Diltiazem HCl 120 mg 12/26/18 11:30 12/27/18 09:26 Cardizem Cd - PO 120 mg DAILY [facility] Administration Furosemide 40 mg 12/26/18 10:00 12/27/18 09:26 Lasix - PO 40 mg DAILY [facility] Administration Levalbuterol HCl 0.31 mg 12/27/18 14:00 Xopenex IH RTID [facility] Metoprolol Tartrate 5 mg 12/24/18 14:10 12/25/18 13:20 Lopressor Injection - IVPUSH 5 mg Q4H PRN Administration TACHYCARDIA Metoprolol Tartrate 50 mg 12/25/18 22:00 12/27/18 09:26 Lopressor - PO 50 mg BID [facility] Administration Last Vital Signs Temp Pulse Resp BP Pulse Ox 98.1 F 102 H 20 125/80 95 12/27/18 09:00 12/27/18 09:00 12/27/18 09:00 12/27/18 09:00 12/26/18 21:00 Intake & Output 12/24/18 12/25/18 12/26/18 12/27/18 23:59 23:59 23:59 23:59 Intake Total 969 214 2661 370 Balance 480 064 8914 370 Weight 135 lb 144 lb General NAD CV S1 S2 tachy irregular Lungs CTA B/L no wheezing/rales/rhonchi Abdomen soft NT/ND extremities 1+ pitting edema CBCD WBC 14.5 K/mm3 (4.0-10.0) H 12/27/18 05:55 RBC 4.26 M/mm3 (3.60-5.2) 12/27/18 05:55 Hgb 12.3 GM/dL (10.7-15.3) 12/27/18 05:55 Hct 38.0 % (32.4-45.2) 12/27/18 05:55 MCV 89.1 fl (80-96) 12/27/18 05:55 MCHC 32.5 g/dl (32.0-36.0) 12/27/18 05:55 RDW 17.1 % (11.6-15.6) H 12/27/18 05:55 Plt Count 274 K/MM3 (134-434) 12/27/18 05:55 MPV 8.5 fl (7.5-11.1) 12/27/18 05:55 CMP Sodium 138 mmol/L (136-145) 12/27/18 08:30 Potassium 4.9 mmol/L (3.5-5.1) 12/27/18 08:30 Chloride 102 mmol/L (98-107) 12/27/18 08:30 Carbon Dioxide 26 mmol/L (21-32) 12/27/18 08:30 Anion Gap 9 MMOL/L (8-16) 12/27/18 08:30 BUN 89.6 mg/dL (7-18) H 12/27/18 08:30 Creatinine 2.9 mg/dL (0.55-1.3) H 12/27/18 08:30 Calcium 9.5 mg/dL (8.5-10.1) 12/27/18 08:30 Total Bilirubin 0.7 mg/dL (0.2-1) 12/25/18 06:24 AST 40 U/L (15-37) H 12/25/18 06:24 ALT 20 U/L (13-61) 12/25/18 06:24 Alkaline Phosphatase 89 U/L (45-117) 12/25/18 06:24 Total Protein 6.3 g/dl (6.4-8.2) L 12/25/18 06:24 Albumin 3.0 g/dl (3.4-5.0) L 12/25/18 06:24 ASSESSMENT AND PLAN: 88yo f wtih PMH COPD on 2L NC, DM, Systolic CHF, and dyslipidemia presented to the Er wt progressive worsening shortness of breath and found to be hypoxic with afib with RVR 1. Acute on chronic hypoxic respiratory failure- requiring bipap on arrival. currently on home 3L NC saturating 92%. likely due to volume overload vs afib with RVR. will cont to manage both. no indication for further steroids. pulmonary on board 2. Acute on chronic systolic CHF-c/o of feeling more overloaded. weight increased 6 lbs and legs appear edematous. will give lasix 40mg IVP. monitor for improvmenet. cardio on board. 3. Acute on CKD- likely pre-renal. due to volume overload vs medication induced. monitor for now 4. constipation- start miralax and colace 5. afib with RVR- controlled. cont current management. titrate as needed to optimize HR.. cardio on board 6. Leukocytosis- liekly reactive. trending down. no fevers. no signs of infection. hold abx. 7. DM- hold oral agents. iss and bgm 8. dyslipidemia-statin 9. DVT ppx- on eliquis 10. spoke with daughter present at bedside. plan discussed. verbalilzed agreement with plan Visit type - Emergency Visit Emergency Visit: Yes ED Registration Date: 12/24/18 Care time: The patient presented to the Emergency Department on the above date and was hospitalized for further evaluation of their emergent condition. - New Patient This patient is new to me today: No - Critical Care Critical Care patient: No - Discharge Referral Referred to [facility] Med P.C.: No
--- NOTE | 2018-12-27 12:31 | PN ---
Progress Note (short form) - Note Progress Note: Chief Complaint: Events noted, notes reviewed, sitting in bed complaining of persistent dyspnea, denies any chest pain History of Present Illness: Seen and examined on telemetry. Events noted, notes reviewed, sitting in bed complaining of persistent dyspnea, denies any chest pain 11/03/2018 Echocardiography: Normal LV size and function, LVEF 55-60%, grade II DD, mild-moderate TR- RVSP 44 mmHg, mild-moderate - MG 12 mmHg 08/16/2015 Echocardiography: Normal LV size with mild cLVH, moderate-severe decrease in LVEF, moderate TR, mild MR 03/09/2015 Pharmacologic MPI study: No ischemia with low normal LVEF 51% Medications: Current Medications Acetaminophen (Tylenol -) 650 mg PO Q6H PRN PRN Reason: pain Apixaban (Eliquis -) 2.5 mg PO BID [facility] Last Admin: 12/27/18 09:26 Dose: 2.5 mg Atorvastatin Calcium (Lipitor -) 20 mg PO HS [facility] Last Admin: 12/26/18 22:13 Dose: 20 mg Diltiazem HCl (Cardizem Injection -) 10 mg IVPUSH Q4H PRN PRN Reason: TACHYCARDIA Last Admin: 12/26/18 11:03 Dose: 10 mg Diltiazem HCl (Cardizem Cd -) 120 mg PO DAILY [facility] Last Admin: 12/27/18 09:26 Dose: 120 mg Furosemide (Lasix -) 40 mg PO DAILY [facility] Last Admin: 12/27/18 09:26 Dose: 40 mg Levalbuterol HCl (Xopenex) 0.31 mg IH RTID [facility] Metoprolol Tartrate (Lopressor Injection -) 5 mg IVPUSH Q4H PRN PRN Reason: TACHYCARDIA Last Admin: 12/25/18 13:20 Dose: 5 mg Metoprolol Tartrate (Lopressor -) 50 mg PO BID [facility] Last Admin: 12/27/18 09:26 Dose: 50 mg Review of Systems Constitutional: denies: Chills or Fever Cardiovascular: as noted above Respiratory: reports: Cough but no Sputum Production Gastrointestinal: denies: Nausea, Vomiting, Diarrhea, Constipation or Abdominal Pain Genitourinary: denies: Dysuria Musculoskeletal: denies: Joint Pain Neurological: denies: Dizziness or Headache Vital Signs: Last Vital Signs Temp Pulse Resp BP Pulse Ox 98.1 F 102 H 20 125/80 95 12/27/18 09:00 12/27/18 09:00 12/27/18 09:00 12/27/18 09:00 12/26/18 21:00 Intake & Output 12/24/18 12/25/18 12/26/18 12/27/18 23:59 23:59 23:59 23:59 Intake Total 081 616 4559 370 Balance 175 349 0078 370 Weight 135 lb 144 lb Constitutional: No Distress, Calm Respiratory: Diminished Breath Sounds Bilaterally Cardiovascular: S1 S2 Irregularly Irregular Gastrointestinal: Soft Benign Normal Bowel Sounds Ext: No Edema Labs: CBC, BMP 12/27/18 05:55 12/27/18 08:30 Hepatic Panel Total Bilirubin 0.7 mg/dL (0.2-1) 12/25/18 06:24 AST 40 U/L (15-37) H 12/25/18 06:24 ALT 20 U/L (13-61) 12/25/18 06:24 Alkaline Phosphatase 89 U/L (45-117) 12/25/18 06:24 Albumin 3.0 g/dl (3.4-5.0) L 12/25/18 06:24 Assessment/Plan ASSESSMENT: 1. Acute on chronic hypercapneic, hypoxemic respiratory failure referable to 2. 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 CAD visual coronary artery calcification negative MPI study for myocardial ischemia 03/09/2015 angina pectoris 4. Paroxysmal atrial fibrillation with periods of rapid ventricular response [id number] score of 7-8 now on DOAC's 5. Advanced COPD on home oxygen therapy 6. CLBBB as above post WOOD PATTERNMAKER-P 7. HTN 8. Hypercholesterolemia 9. History of CVA 10. Acute on CKD PLAN: 1. Continue diuretics with close monitoring or renal function and electrolytes 2. Continue Lopressor 3. Continue Cardizem CD 4. Recommend the resumption of Diovan once renal function at baseline, hemodynamics permitting 5. Continue Eliquis 6. Continue Lipitor 7. Recommend obtaining a renal evaluation for the above noted CKD- with acute exacerbation Christal Wayne M.D.
[2018-12-27] MEDS ORDERED: FUROSEMIDE 40 MG/4 ML INJECTABLE VIAL IVPUSH ONE (13:32)
[2018-12-27] MEDS: LEVALBUTEROL HCL 0.31 MG/3 ML VIAL.NEB IH SCH ×2 (14:39→20:46)
[2018-12-27] MEDS: POLYETHYLENE GLYCOL 3350 119 GM BTL PO SCH (14:55)
[2018-12-27] MEDS: ACETAMINOPHEN 325 MG TABLET (FP) PO PRN (18:25)
[2018-12-27] MEDS: DOCUSATE SODIUM 100 MG CAPSULE (FP) PO SCH (22:47)
[2018-12-27] MEDS: ATORVASTATIN CA 20 MG TABLET (FP) PO SCH (22:47)
[2018-12-28 06:50] LABS: HEMATOCRIT 36.1 % (32.4-45.2); HEMOGLOBIN 11.7 GM/dL (10.7-15.3); MCH 28.1 pg (25.7-33.7); MCHC 32.3 g/dl (32.0-36.0); MEAN PLT VOLUME 8.5 fl (7.5-11.1); PLATELET COUNT 247 K/MM3 (134-434); RBC 4.15 M/mm3 (3.60-5.2); RDW 16.7 % (11.6-15.6)
[2018-12-28 07:16] LABS: BLOOD UREA NITROGEN 92.2 mg/dL (7-18); CALCIUM 9.7 mg/dL (8.5-10.1); CREATININE 2.9 mg/dL (0.55-1.3); POTASSIUM 4.1 mmol/L (3.5-5.1)
--- NOTE | 2018-12-28 08:36 | PN ---
Progress Note, Physician History of Present Illness: PULMONARY ALERT,STILL C/O SOB AT REST AND EXERTION,-CP - Current Medication List Current Medications: Active Medications Acetaminophen (Tylenol -) 650 mg PO Q6H PRN PRN Reason: pain Last Admin: 12/27/18 18:25 Dose: 650 mg Apixaban (Eliquis -) 2.5 mg PO BID [facility] Last Admin: 12/27/18 22:47 Dose: 2.5 mg Atorvastatin Calcium (Lipitor -) 20 mg PO HS [facility] Last Admin: 12/27/18 22:47 Dose: 20 mg Diltiazem HCl (Cardizem Injection -) 10 mg IVPUSH Q4H PRN PRN Reason: TACHYCARDIA Last Admin: 12/26/18 11:03 Dose: 10 mg Diltiazem HCl (Cardizem Cd -) 120 mg PO DAILY [facility] Last Admin: 12/27/18 09:26 Dose: 120 mg Docusate Sodium (Colace -) 300 mg PO HS [facility] Last Admin: 12/27/18 22:47 Dose: 300 mg Furosemide (Lasix -) 40 mg PO DAILY [facility] Last Admin: 12/27/18 09:26 Dose: 40 mg Levalbuterol HCl (Xopenex) 0.31 mg IH RTID [facility] Last Admin: 12/27/18 20:46 Dose: Not Given Melatonin (Melatonin) 3 mg PO HS [facility] Metoprolol Tartrate (Lopressor Injection -) 5 mg IVPUSH Q4H PRN PRN Reason: TACHYCARDIA Last Admin: 12/25/18 13:20 Dose: 5 mg Metoprolol Tartrate (Lopressor -) 50 mg PO BID [facility] Last Admin: 12/27/18 22:47 Dose: 50 mg Polyethylene Glycol (Miralax (For Daily Use) -) 17 gm PO DAILY [facility] Last Admin: 12/27/18 14:55 Dose: 17 grams - Objective Vital Signs: Vital Signs Temperature 97.9 F 12/28/18 06:00 Pulse Rate 105 H 12/28/18 06:00 Respiratory Rate 20 12/28/18 06:00 Blood Pressure 129/74 12/28/18 06:00 O2 Sat by Pulse Oximetry (%) 94 L 12/27/18 21:00 Constitutional: Yes: Well Nourished, Calm Eyes: Yes: WNL HENT: Yes: WNL Neck: Yes: WNL Cardiovascular: Yes: Pulse Irregular, S1, S2 Respiratory: Yes: Rales (BILATERAL CRACKLES1/3 UP) Gastrointestinal: Yes: Normal Bowel Sounds, Soft Extremities: Yes: WNL Edema: Yes Labs: CBC, BMP 12/28/18 05:45 12/28/18 05:45 INR, PTT INR 1.18 (0.83-1.09) H 12/24/18 09:43 Problem List - Problems (1) Acute on chronic diastolic CHF (congestive heart failure) Code(s): I50.33 - ACUTE ON CHRONIC DIASTOLIC (CONGESTIVE) HEART FAILURE (2) Atrial fibrillation with rapid ventricular response Code(s): I48.91 - UNSPECIFIED ATRIAL FIBRILLATION (3) CKD (chronic kidney disease) Code(s): N18.9 - CHRONIC KIDNEY DISEASE, UNSPECIFIED Qualifiers: Chronic kidney disease stage: stage 3 (moderate) Qualified Code(s): N18.3 - Chronic kidney disease, stage 3 (moderate) (4) Chronic anticoagulation Code(s): Z79.01 - BRAND PLANNER (CURRENT) USE OF ANTICOAGULANTS (5) Acute on chronic respiratory failure with hypoxia and hypercapnia Code(s): J96.21 - ACUTE AND CHRONIC RESPIRATORY FAILURE WITH HYPOXIA; J96.22 - ACUTE AND CHRONIC RESPIRATORY FAILURE WITH HYPERCAPNIA (6) FRYE (dyspnea on exertion) Code(s): R06.09 - OTHER FORMS OF DYSPNEA (7) Pulmonary HTN Code(s): I27.20 - PULMONARY HYPERTENSION, UNSPECIFIED (8) History of COPD Code(s): Z87.09 - PERSONAL HISTORY OF OTHER DISEASES OF THE RESPIRATORY SYSTEM Assessment/Plan ASSESSMENT AND PLAN: Acute on Chronic Hypoxic and Hypercapneic Respiratory Failure Acute on Chronic Systolic/Diastolic Heart Failure Atrial Fibrillation with RVR improved PULMONARY HTN COPD CAD HTN Hyperlipidemia CKD - continue lasix - monitor urine output, creatinine - daily weights - inhaled bronchodilators - O2 to keep SpO2 >90% - BiPAP as needed to assist in work of breathing - rate control as per Cardiology - nancy HORTON
[2018-12-28] MEDS ORDERED: PT OWN MED DRAWER 7, Y5N ONE (08:38)
[2018-12-28] MEDS: LEVALBUTEROL HCL 0.31 MG/3 ML VIAL.NEB IH SCH ×3 (08:38→21:51)
[2018-12-28] MEDS ORDERED: FUROSEMIDE 40 MG/4 ML INJECTABLE VIAL IVPUSH ONE ×2 (09:38→11:00)
[2018-12-28] MEDS: POLYETHYLENE GLYCOL 3350 119 GM BTL PO SCH (10:03)
[2018-12-28] MEDS: APIXABAN 2.5 MG TABLET PO SCH ×2 (10:03→21:48)
[2018-12-28] MEDS: METOPROLOL TARTRATE 50 MG TABLET (FP) PO SCH ×2 (10:03→21:48)
--- NOTE | 2018-12-28 10:59 | PN ---
Progress Note (short form) - Note Progress Note: Chief Complaint: Events noted, notes reviewed, resting in bed complaining of persistent dyspnea and abdominal distention, denies any chest pain History of Present Illness: Seen and examined on telemetry. Events noted, notes reviewed, resting in bed complaining of persistent dyspnea and abdominal distention, denies any chest pain 11/03/2018 Echocardiography: Normal LV size and function, LVEF 55-60%, grade II DD, mild-moderate TR- RVSP 44 mmHg, mild-moderate - MG 12 mmHg 08/16/2015 Echocardiography: Normal LV size with mild cLVH, moderate-severe decrease in LVEF, moderate TR, mild MR 03/09/2015 Pharmacologic MPI study: No ischemia with low normal LVEF 51% Medications: Current Medications Acetaminophen (Tylenol -) 650 mg PO Q6H PRN PRN Reason: pain Last Admin: 12/27/18 18:25 Dose: 650 mg Apixaban (Eliquis -) 2.5 mg PO BID [facility] Last Admin: 12/28/18 10:03 Dose: 2.5 mg Atorvastatin Calcium (Lipitor -) 20 mg PO HS [facility] Last Admin: 12/27/18 22:47 Dose: 20 mg Diltiazem HCl (Cardizem Injection -) 10 mg IVPUSH Q4H PRN PRN Reason: TACHYCARDIA Last Admin: 12/26/18 11:03 Dose: 10 mg Diltiazem HCl (Cardizem Cd -) 120 mg PO DAILY [facility] Last Admin: 12/28/18 10:03 Dose: 120 mg Docusate Sodium (Colace -) 300 mg PO HS [facility] Last Admin: 12/27/18 22:47 Dose: 300 mg Furosemide (Lasix -) 40 mg PO DAILY [facility] Last Admin: 12/27/18 09:26 Dose: 40 mg Levalbuterol HCl (Xopenex) 0.31 mg IH RTID [facility] Last Admin: 12/27/18 20:46 Dose: Not Given Melatonin (Melatonin) 3 mg PO [facility] Metoprolol Tartrate (Lopressor Injection -) 5 mg IVPUSH Q4H PRN PRN Reason: TACHYCARDIA Last Admin: 12/25/18 13:20 Dose: 5 mg Metoprolol Tartrate (Lopressor -) 50 mg PO BID [facility] Last Admin: 12/28/18 10:03 Dose: 50 mg Polyethylene Glycol (Miralax (For Daily Use) -) 17 gm PO DAILY [facility] Last Admin: 12/28/18 10:03 Dose: 17 grams Review of Systems Constitutional: denies: Chills or Fever Cardiovascular: as noted above Respiratory: reports: Cough but no Sputum Production Gastrointestinal: denies: Nausea, Vomiting, Diarrhea, Constipation or Abdominal Pain Genitourinary: denies: Dysuria Musculoskeletal: denies: Joint Pain Neurological: denies: Dizziness or Headache Vital Signs: Last Vital Signs Temp Pulse Resp BP Pulse Ox 97.8 F 100 H 20 137/87 94 L 12/28/18 09:00 12/28/18 09:00 12/28/18 09:00 12/28/18 09:00 12/28/18 09:00 Intake & Output 12/25/18 12/26/18 12/27/18 12/28/18 23:59 23:59 23:59 23:59 Intake Total 460 1480 930 10 Balance 460 1480 930 10 Weight 144 lb 143 lb 9.6 oz Constitutional: No Distress, Calm Respiratory: Diminished Breath Sounds Bilaterally Cardiovascular: S1 S2 Irregularly Irregular Gastrointestinal: Soft Benign Normal Bowel Sounds Ext: No Edema Labs: CBC, BMP 12/28/18 05:45 12/28/18 05:45 INR, PTT INR 1.18 (0.83-1.09) H 12/24/18 09:43 Assessment/Plan ASSESSMENT: 1. Acute on chronic hypercapneic, hypoxemic respiratory failure referable to 2. Acute on chronic class I-II NYHA classification LV diastolic failure- persistent symptoms, history of resolved cardiomyopathy post PERIOPERATIVE MANAGER-P 3. CAD visual coronary artery calcification negative MPI study for myocardial ischemia 03/09/2015 angina pectoris 4. Paroxysmal atrial fibrillation with periods of rapid ventricular response [id number] score of 7-8 now on DOAC's 5. Advanced COPD on home oxygen therapy 6. CLBBB as above post PERIOPERATIVE MANAGER-P 7. HTN 8. Hypercholesterolemia 9. History of CVA 10. Acute on CKD PLAN: 1. Continue diuretics- IV as needed with close monitoring or renal function and electrolytes 2. Continue Lopressor 3. Continue Cardizem CD 4. Recommend the resumption of Diovan once renal function at baseline, hemodynamics permitting 5. Continue Eliquis 6. Continue Lipitor 7. As outlined in prior note recommend obtaining a renal evaluation for the above noted CKD- with acute exacerbation Christal Wayne M.D.
--- NOTE | 2018-12-28 11:51 | PN ---
Physical Exam: SUBJECTIVE: Patient seen and examined at bedside this morning. Patient still reports abdominal discomfort/bloating. She reported having minimal bowel movement this morning. Reports some shortness of breath with exertion. Denies fever, chills, headache, chest pain, diarrhea, urinary symptoms. OBJECTIVE: Vital Signs Temperature 97.8 F 12/28/18 09:00 Pulse Rate 100 H 12/28/18 09:00 Respiratory Rate 20 12/28/18 09:00 Blood Pressure 137/87 12/28/18 09:00 O2 Sat by Pulse Oximetry (%) 94 L 12/28/18 09:00 GENERAL: The patient is awake, alert, and fully oriented, on 3L NC HEAD: Normal with no signs of trauma. EYES: PERRLA, EOMI, sclera anicteric, conjunctiva clear. ENT: moist mucous membranes. NECK: Full range of motion, supple. LUNGS: Fine crackles on bilateral bases HEART: Irregularly irregular, S1 S2 ABDOMEN: Soft, nontender, nondistended, normoactive bowel sounds. EXTREMITIES: 2+ pulses, warm, well-perfused, +1 pitting edema NEUROLOGICAL: Cranial nerves II through XII grossly intact. Normal speech, walks with walker PSYCH: Normal mood, normal affect. SKIN: Warm, dry, normal turgor, no rashes or lesions noted Laboratory Results - last 24 hr 12/28/18 12/28/18 05:45 05:45 WBC 9.0 RBC 4.15 Hgb 11.7 Hct 36.1 MCV 87.0 MCH 28.1 MCHC 32.3 RDW 16.7 H Plt Count 247 MPV 8.5 Sodium 139 Potassium 4.1 Chloride 100 Carbon Dioxide 27 Anion Gap 12 BUN 92.2 H Creatinine 2.9 H Est GFR (CKD-EPI)AfAm 16.31 Est GFR (CKD-EPI)NonAf 14.07 Random Glucose 93 Calcium 9.7 Active Medications Generic Name Dose Route Start Last Admin Trade Name Freq PRN Reason Stop Dose Admin Acetaminophen 650 mg 12/27/18 09:34 12/27/18 18:25 Tylenol - PO 650 mg Q6H PRN Administration pain Apixaban 2.5 mg 12/24/18 22:00 12/28/18 10:03 Eliquis - PO 2.5 mg BID [facility] Administration Atorvastatin Calcium 20 mg 12/24/18 22:00 12/27/18 22:47 Lipitor - PO 20 mg HS [facility] Administration Diltiazem HCl 10 mg 12/24/18 20:08 12/26/18 11:03 Cardizem Injection - IVPUSH 10 mg Q4H PRN Administration TACHYCARDIA Diltiazem HCl 120 mg 12/26/18 11:30 12/28/18 10:03 Cardizem Cd - PO 120 mg DAILY [facility] Administration Docusate Sodium 300 mg 12/27/18 22:00 12/27/18 22:47 Colace - PO 300 mg HS [facility] Administration Furosemide 40 mg 12/26/18 10:00 12/27/18 09:26 Lasix - PO 40 mg DAILY [facility] Administration Levalbuterol HCl 0.31 mg 12/27/18 14:00 12/27/18 20:46 Xopenex IH Not Given RTID [facility] Melatonin 3 mg 12/28/18 22:00 Melatonin PO HS [facility] Metoprolol Tartrate 5 mg 12/24/18 14:10 12/25/18 13:20 Lopressor Injection - IVPUSH 5 mg Q4H PRN Administration TACHYCARDIA Metoprolol Tartrate 50 mg 12/25/18 22:00 12/28/18 10:03 Lopressor - PO 50 mg BID [facility] Administration Polyethylene Glycol 17 gm 12/27/18 13:45 12/28/18 10:03 Miralax (For Daily Use) - PO 17 grams DAILY [facility] Administration ASSESSMENT/PLAN: Patient is an 88 year old female with past medical history of COPD on home O2, Afib on eliquis, CVA, CAD, HTN, HLD, CKD, presented to the ED due to dyspnea on exertion, found to be hypoxic and in Afib with RVR. #Acute on chronic hypoxic and hypercapneic respiratory failure -likely 2/2 CHF exacerbation -unlikely COPD, steroids not indicated at this time -Pulmonology and Cardiology on board -continue PO Lasix and PRN IV Lasix -Levalbuterol IH RTID -Continue supplemental O2 and NIPPV PRN to keep SpO2>90% #Acute decompensated diastolic CHF -Echo shows normal LV fxn, moderateMR, moderate TR, RV Pressure elevated at 30- 40mmHg, mild -Continue PO Lasix 40mg daily -Iv Lasix 40mg given again today -daily weights, I&O -Cardiology (Dr. Wayne) consulted. #Afib with RVR -Continue Cardizem Cd 120mg daily and Lopressor 50mg BID -Cardizem and Lopressor Iv PRN -Continue Eliquis 2.5mg BID -Cardiology consulted. #Acute on CKD -Cr stable at 2.9 today -likely from volume overload -baseline Cr 2.3 -will continue to monitor renal function -Avoid nephrotoxic agents #Leukocytosis, resolved -likely reactive, no signs of infection, afebrile overnight #HTN -On Cardizem, Lopressor and Lasix #HLD -Continue Lipitor 20mg Po HS #FEN -Not on any standing fluids -Electrolytes wnl, routine bmp monitoring -Sodium controlled diet #Prophylaxis -Eliquis 2.5mg BID #Disposition -full code -tele Visit type - Emergency Visit Emergency Visit: Yes ED Registration Date: 12/24/18 Care time: The patient presented to the Emergency Department on the above date and was hospitalized for further evaluation of their emergent condition. - New Patient This patient is new to me today: No - Critical Care Critical Care patient: No ATTENDING PHYSICIAN STATEMENT I saw and evaluated the patient. I reviewed the resident's note and discussed the case with the resident. I agree with the resident's findings and plan as documented. SUBJECTIVE: OBJECTIVE: ASSESSMENT AND PLAN:
[2018-12-28] MEDS: ACETAMINOPHEN 325 MG TABLET (FP) PO PRN (11:54)
--- NOTE | 2018-12-28 13:45 | PN ---
Teaching Attending Note Name of Resident: Kate Pacheco ATTENDING PHYSICIAN STATEMENT I saw and evaluated the patient. I reviewed the resident's note and discussed the case with the resident. I agree with the resident's findings and plan as documented. SUBJECTIVE:breathing is better but still c/o pedal edema. denies CP, cough, fever, chills, Palpitations. had small BM yesterday OBJECTIVE: Last Vital Signs Temp Pulse Resp BP Pulse Ox 97.8 F 100 H 20 137/87 94 L 12/28/18 09:00 12/28/18 09:00 12/28/18 09:00 12/28/18 09:00 12/28/18 09:00 Intake & Output 12/25/18 12/26/18 12/27/18 12/28/18 23:59 23:59 23:59 23:59 Intake Total 460 1480 930 370 Balance 460 1480 930 370 Weight 144 lb 143 lb 9.6 oz General NAD CV S1 s2 irregular Lungs decreased R base Extremities 1+ pitting edema B/L ASSESSMENT AND PLAN: 88yo f wtih PMH COPD on 2L NC, DM, Systolic CHF, and dyslipidemia presented to the Er wtih progressive worsening shortness of breath and found to be hypoxic with afib with RVR 1. Acute on chronic hypoxic respiratory failure- requiring bipap on arrival. currently on home 3L NC saturating 92%. likely due to volume overload vs afib with RVR. will cont to manage both. no indication for further steroids. pulmonary on board 2. Acute on chronic systolic CHF-slight decrease in weight. will give lasix 40mg IV x1. give as needed. monitor for improvement. cardio on board. 3. Acute on CKD- likely pre-renal. due to volume overload vs medication induced.stable. monitor for now 4. constipation- small BM. cont miralax and colace 5. afib with RVR- controlled. cont current management. titrate as needed to optimize HR. cardio on board 6. Leukocytosis- liekly reactive. trending down. no fevers. no signs of infection. hold abx. 7. DM- hold oral agents. iss and bgm 8. dyslipidemia-statin 9. DVT ppx- on eliquis
[2018-12-28] MEDS: FUROSEMIDE 40 MG TABLET (FP) PO SCH (15:07)
[2018-12-28] MEDS ORDERED: diphenhydrAMINE HCL 25 MG CAPSULE (FP) PO ONE (17:07)
[2018-12-28] MEDS: DOCUSATE SODIUM 100 MG CAPSULE (FP) PO SCH (21:48)
[2018-12-28] MEDS: MELATONIN 1 MG TABLET PO SCH (21:49)
[2018-12-28] MEDS: ATORVASTATIN CA 20 MG TABLET (FP) PO SCH (21:49)
[2018-12-29 06:57] LABS: BASO % 0.6 % (0-2.0); EOS % 2.5 % (0-4.5); HEMOGLOBIN 11.8 GM/dL (10.7-15.3); LYMPH % 15.7 % (8-40); MCH 28.3 pg (25.7-33.7); MCHC 32.7 g/dl (32.0-36.0); MEAN CELL VOLUME 86.4 fl (80-96); MEAN PLT VOLUME 8.4 fl (7.5-11.1); MONO % 7.7 % (3.8-10.2); NEUT % 73.5 % (42.8-82.8); PLATELET COUNT 261 K/MM3 (134-434); RBC 4.16 M/mm3 (3.60-5.2); RDW 16.9 % (11.6-15.6); WHITE BLOOD COUNT 8.3 K/mm3 (4.0-10.0)
[2018-12-29 07:05] LABS: BLOOD UREA NITROGEN 83.1 mg/dL (7-18); CALCIUM 9.5 mg/dL (8.5-10.1); CREATININE 2.7 mg/dL (0.55-1.3); POTASSIUM 3.7 mmol/L (3.5-5.1)
[2018-12-29] MEDS: LEVALBUTEROL HCL 0.31 MG/3 ML VIAL.NEB IH SCH ×3 (07:58→20:56)
[2018-12-29] MEDS: METOPROLOL TARTRATE 50 MG TABLET (FP) PO SCH ×2 (09:28→22:12)
[2018-12-29] MEDS: POLYETHYLENE GLYCOL 3350 119 GM BTL PO SCH (09:28)
[2018-12-29] MEDS: APIXABAN 2.5 MG TABLET PO SCH ×2 (09:28→22:12)
[2018-12-29] MEDS: FUROSEMIDE 40 MG TABLET (FP) PO SCH (09:28)
--- NOTE | 2018-12-29 10:06 | PN ---
Progress Note, Physician Chief Complaint: Events noted Intermittent dyspnea, but improved History of Present Illness: Patient was seen and examined. Awake and alert. Chart was reviewed Denies chest pain or palpitations As outlined - Current Medication List Current Medications: Active Medications Acetaminophen (Tylenol -) 650 mg PO Q6H PRN PRN Reason: pain Last Admin: 12/28/18 11:54 Dose: 650 mg Apixaban (Eliquis -) 2.5 mg PO BID [facility] Last Admin: 12/29/18 09:28 Dose: 2.5 mg Atorvastatin Calcium (Lipitor -) 20 mg PO HS [facility] Last Admin: 12/28/18 21:49 Dose: 20 mg Diltiazem HCl (Cardizem Injection -) 10 mg IVPUSH Q4H PRN PRN Reason: TACHYCARDIA Last Admin: 12/26/18 11:03 Dose: 10 mg Diltiazem HCl (Cardizem Cd -) 120 mg PO DAILY [facility] Last Admin: 12/29/18 09:27 Dose: 120 mg Docusate Sodium (Colace -) 300 mg PO HS [facility] Last Admin: 12/28/18 21:48 Dose: 300 mg Furosemide (Lasix -) 40 mg PO DAILY [facility] Last Admin: 12/29/18 09:28 Dose: 40 mg Levalbuterol HCl (Xopenex) 0.31 mg IH RTID [facility] Last Admin: 12/28/18 21:51 Dose: 0.31 mg Melatonin (Melatonin) 3 mg PO HS [facility] Last Admin: 12/28/18 21:49 Dose: 3 mg Metoprolol Tartrate (Lopressor Injection -) 5 mg IVPUSH Q4H PRN PRN Reason: TACHYCARDIA Last Admin: 12/25/18 13:20 Dose: 5 mg Metoprolol Tartrate (Lopressor -) 50 mg PO BID [facility] Last Admin: 12/29/18 09:28 Dose: 50 mg Polyethylene Glycol (Miralax (For Daily Use) -) 17 gm PO DAILY [facility] Last Admin: 12/29/18 09:28 Dose: 17 grams - Objective Vital Signs: Vital Signs Temperature 97.5 F L 12/29/18 05:00 Pulse Rate 120 H 12/29/18 05:00 Respiratory Rate 20 12/29/18 05:00 Blood Pressure 121/72 12/29/18 05:00 O2 Sat by Pulse Oximetry (%) 95 12/28/18 21:00 Eyes: Yes: PERRL HENT: Yes: Atraumatic Neck: Yes: Supple Cardiovascular: Yes: Tachycardia, Pulse Irregular, S1, S2 Respiratory: Yes: Diminished Gastrointestinal: Yes: Normal Bowel Sounds, Soft. No: Tenderness Edema: No Additional Findings/Remarks: Review of Systems Constitutional: denies: Chills or Fever Cardiovascular: denies: chest pain, palpitations (+) SOB Respiratory: (+) Cough, sputum, denies: hemoptysis Gastrointestinal: denies: Nausea, Vomiting, Diarrhea, Constipation or Abdominal Pain Genitourinary: denies: Dysuria Musculoskeletal: denies: Joint Pain Neurological: denies: Dizziness or Headache denies: seizure, syncope Labs: CBC, BMP 12/29/18 05:55 12/29/18 05:55 Problem List - Problems (1) Acute on chronic diastolic CHF (congestive heart failure) Code(s): I50.33 - ACUTE ON CHRONIC DIASTOLIC (CONGESTIVE) HEART FAILURE (2) CKD (chronic kidney disease) Code(s): N18.9 - CHRONIC KIDNEY DISEASE, UNSPECIFIED Qualifiers: Chronic kidney disease stage: stage 3 (moderate) Qualified Code(s): N18.3 - Chronic kidney disease, stage 3 (moderate) (3) Hyperlipidemia Code(s): E78.5 - HYPERLIPIDEMIA, UNSPECIFIED Qualifiers: Hyperlipidemia type: pure hypercholesterolemia Qualified Code(s): E78.00 - Pure hypercholesterolemia, unspecified; E78.0 - Pure hypercholesterolemia (4) Sepsis Code(s): A41.9 - SEPSIS, UNSPECIFIED ORGANISM (5) Acute on chronic respiratory failure with hypoxia and hypercapnia Code(s): J96.21 - ACUTE AND CHRONIC RESPIRATORY FAILURE WITH HYPOXIA; J96.22 - ACUTE AND CHRONIC RESPIRATORY FAILURE WITH HYPERCAPNIA (6) COPD exacerbation Code(s): J44.1 - CHRONIC OBSTRUCTIVE PULMONARY DISEASE W (ACUTE) EXACERBATION (7) FRYE (dyspnea on exertion) Code(s): R06.09 - OTHER FORMS OF DYSPNEA (8) Pulmonary HTN Code(s): I27.20 - PULMONARY HYPERTENSION, UNSPECIFIED (9) Sleep apnea Code(s): G47.30 - SLEEP APNEA, UNSPECIFIED (10) History of atrial fibrillation Code(s): Z86.79 - PERSONAL HISTORY OF OTHER DISEASES OF THE CIRCULATORY SYSTEM Assessment/Plan 1. Acute on chronic hypercapneic, hypoxemic respiratory failure 2. Acute on chronic class I-II NYHA classification LV diastolic failure- persistent symptoms, history of cardiomyopathy post CORPORATE TRAFFIC MANAGER-P 3. CAD visual coronary artery calcification negative MPI study for myocardial ischemia, angina pectoris 4. Paroxysmal atrial fibrillation with periods of rapid ventricular response [id number] score of 7-8 now on DOAC 5. Advanced COPD on home oxygen therapy 6. CLBBB as above post CORPORATE TRAFFIC MANAGER-P 7. HTN 8. Hypercholesterolemia 9. History of CVA 10. Acute on CKD PLAN: 1. Continue diuretics - IV as needed with close monitoring or renal function and electrolytes 2. Continue Lopressor and Cardizem CD for rate control 3. Recommend the resumption of Diovan once renal function at baseline 4. Continue Eliquis 5. Continue Lipitor 6. Renal input 7. Pulmonary treatment El Deleon MD
--- NOTE | 2018-12-29 10:12 | PN ---
Progress Note, Physician History of Present Illness: pulmonary alert,c/o increased sob today,-cp - Current Medication List Current Medications: Active Medications Acetaminophen (Tylenol -) 650 mg PO Q6H PRN PRN Reason: pain Last Admin: 12/28/18 11:54 Dose: 650 mg Apixaban (Eliquis -) 2.5 mg PO BID [facility] Last Admin: 12/29/18 09:28 Dose: 2.5 mg Atorvastatin Calcium (Lipitor -) 20 mg PO HS [facility] Last Admin: 12/28/18 21:49 Dose: 20 mg Diltiazem HCl (Cardizem Injection -) 10 mg IVPUSH Q4H PRN PRN Reason: TACHYCARDIA Last Admin: 12/26/18 11:03 Dose: 10 mg Diltiazem HCl (Cardizem Cd -) 120 mg PO DAILY [facility] Last Admin: 12/29/18 09:27 Dose: 120 mg Docusate Sodium (Colace -) 300 mg PO HS [facility] Last Admin: 12/28/18 21:48 Dose: 300 mg Furosemide (Lasix -) 40 mg PO DAILY [facility] Last Admin: 12/29/18 09:28 Dose: 40 mg Levalbuterol HCl (Xopenex) 0.31 mg IH RTID [facility] Last Admin: 12/28/18 21:51 Dose: 0.31 mg Melatonin (Melatonin) 3 mg PO HS [facility] Last Admin: 12/28/18 21:49 Dose: 3 mg Metoprolol Tartrate (Lopressor Injection -) 5 mg IVPUSH Q4H PRN PRN Reason: TACHYCARDIA Last Admin: 12/25/18 13:20 Dose: 5 mg Metoprolol Tartrate (Lopressor -) 50 mg PO BID [facility] Last Admin: 12/29/18 09:28 Dose: 50 mg Polyethylene Glycol (Miralax (For Daily Use) -) 17 gm PO DAILY [facility] Last Admin: 12/29/18 09:28 Dose: 17 grams - Objective Vital Signs: Vital Signs Temperature 97.5 F L 12/29/18 05:00 Pulse Rate 120 H 12/29/18 05:00 Respiratory Rate 20 12/29/18 05:00 Blood Pressure 121/72 12/29/18 05:00 O2 Sat by Pulse Oximetry (%) 95 12/28/18 21:00 Constitutional: Yes: Well Nourished, Calm Eyes: Yes: WNL HENT: Yes: WNL Neck: Yes: WNL Cardiovascular: Yes: Pulse Irregular, S1, S2 Respiratory: Yes: Rales (bibasailr crackles) Gastrointestinal: Yes: Normal Bowel Sounds, Soft Extremities: Yes: WNL Edema: Yes Labs: CBC, BMP 12/29/18 05:55 12/29/18 05:55 INR, PTT INR 1.18 (0.83-1.09) H 12/24/18 09:43 Problem List - Problems (1) Acute on chronic diastolic CHF (congestive heart failure) Code(s): I50.33 - ACUTE ON CHRONIC DIASTOLIC (CONGESTIVE) HEART FAILURE (2) Atrial fibrillation with rapid ventricular response Code(s): I48.91 - UNSPECIFIED ATRIAL FIBRILLATION (3) CKD (chronic kidney disease) Code(s): N18.9 - CHRONIC KIDNEY DISEASE, UNSPECIFIED Qualifiers: Qualified Code(s): N18.3 - Chronic kidney disease, stage 3 (moderate) (4) Chronic anticoagulation Code(s): Z79.01 - COLLECTION TEAM LEAD (CURRENT) USE OF ANTICOAGULANTS (5) Acute on chronic respiratory failure with hypoxia and hypercapnia Code(s): J96.21 - ACUTE AND CHRONIC RESPIRATORY FAILURE WITH HYPOXIA; J96.22 - ACUTE AND CHRONIC RESPIRATORY FAILURE WITH HYPERCAPNIA (6) FRYE (dyspnea on exertion) Code(s): R06.09 - OTHER FORMS OF DYSPNEA (7) Pulmonary HTN Code(s): I27.20 - PULMONARY HYPERTENSION, UNSPECIFIED (8) History of COPD Code(s): Z87.09 - PERSONAL HISTORY OF OTHER DISEASES OF THE RESPIRATORY SYSTEM Assessment/Plan ASSESSMENT AND PLAN: Acute on Chronic Hypoxic and Hypercapneic Respiratory Failure Acute on Chronic Systolic/Diastolic Heart Failure Atrial Fibrillation with RVR improved PULMONARY HTN COPD CAD HTN Hyperlipidemia CKD - lasix - monitor urine output, creatinine - daily weights - inhaled bronchodilators - O2 to keep SpO2 >90% - BiPAP as needed to assist in work of breathing - rate control as per Cardiology - eliquis - short course of jane HORTON
--- NOTE | 2018-12-29 12:49 | PN ---
Teaching Attending Note Name of Resident: Jorge Marshall ATTENDING PHYSICIAN STATEMENT I saw and evaluated the patient. I reviewed the resident's note and discussed the case with the resident. I agree with the resident's findings and plan as documented. SUBJECTIVE:c/o abdominal distention and difficulty breathing. denies CP, SOB, fever, chills, N/V/C/D. had BM yesterday OBJECTIVE: Last Vital Signs Temp Pulse Resp BP Pulse Ox 98.3 F 102 H 20 119/69 95 12/29/18 09:00 12/29/18 09:00 12/29/18 09:00 12/29/18 09:00 12/29/18 09:00 Intake & Output 12/26/18 12/27/18 12/28/18 12/29/18 23:59 23:59 23:59 23:59 Intake Total 1480 930 940 210 Balance 1480 930 940 210 Weight 144 lb 143 lb 9.6 oz 141 lb General NAD CV S1 s2 irregular Lungs decreased R base abdomen slightly distended. NT Extremities 1+ pitting edema LLE, trace RLE ASSESSMENT AND PLAN: 88yo f wtih PMH COPD on 2L NC, DM, Systolic CHF, and dyslipidemia presented to the Er wtih progressive worsening shortness of breath and found to be hypoxic with afib with RVR 1. Acute on chronic hypoxic respiratory failure- requiring bipap on arrival. currently on home 3L NC saturating 92%. likely due to volume overload vs afib with RVR. will cont to manage both. no indication for further steroids. pulmonary on board 2. Acute on chronic systolic CHF-clinically looking improved but remains overloaded. maoaghter states dry base weight is closer to 135. will give lasix 40mg IV x1 and monitor. can likely be stable on po tomorrow. water restrict to < 1L as pt reports drinking excess amounts of water. +SIMEON stockings and elevation of legs. cardio on board. 3. Acute on CKD- likely pre-renal. due to volume overload vs medication induced.stable. monitor for now 4. constipation-with some assoc abdominal distention. did have Bm yesterday. regularly goes daily. + BM last night. cont miralax and colace 5. afib with RVR- controlled. cont current management. titrate as needed to optimize HR. cardio on board 6. Leukocytosis- liekly reactive. trending down. no fevers. no signs of infection. hold abx. 7. DM- hold oral agents. iss and bgm 8. dyslipidemia-statin 9. DVT ppx- on eliquis 10. spoke with daughter and granddaughter present at bedside. all questions answered. informed of possibility of going home tomorrow. agreeable to cardiac rehab as outpatient
[2018-12-29] MEDS ORDERED: FUROSEMIDE 40 MG/4 ML INJECTABLE VIAL IVPUSH ONE (13:30)
--- NOTE | 2018-12-29 16:13 | PN ---
Physical Exam: SUBJECTIVE: 88 y/o F w PMH COPD on home O2, Afib on eliquis, CVA, CAD, HTN, HLD , CKD, whom presented to the ED w dyspnea on exertion, admitted for acute on chronic hypoxic and hypercapneic respiratory failure seen at bedside today JUSTINE 6. Today she c/o difficulty breathing and RIGHT shoulder pain. She denies CP, SOB. She says her difficulty breathing makes her tired. RIGHT shoulder pain is a known complaint of the pt. She reports she had PT 6 years ago for arthritis and this feels like the same presentation. Pain occurs on lateral raise of RIGHT arm, better w rest, worse w movement, and 6/10. She denies NVFD. OBJECTIVE: Vital Signs Temp Pulse Resp BP Pulse Ox 98.0 F 77 20 109/68 95 12/29/18 14:00 12/29/18 14:00 12/29/18 09:00 12/29/18 14:00 12/29/18 09:00 GENERAL: The patient is awake, alert, and fully oriented, in no acute distress. Speaking Khmer only. HEAD: NCAT EYES: ZAHRAA, EOMI, conjunctiva clear. No ptosis. Wearing corrective lenses. ENT: Ears normal, nares patent, oropharynx clear without exudates, moist mucous membranes. On NC 3L. NECK: Trachea midline, full range of motion, supple. LUNGS: Decreased air entry on RIGHT lower lobe. Clear to auscultation elsewhere. No wheezes, no crackles, no accessory muscle use. HEART: Irregular, S1, S2 without murmur, rub or gallop. ABDOMEN: Obese, soft, nontender, nondistended, normoactive bowel sounds, no guarding, no rebound, no hepatosplenomegaly, no masses. EXTREMITIES: 1+ pitting edema in LE BL. 2+ pulses irregular, warm, well- perfused NEUROLOGICAL: Cranial nerves II through XII grossly intact. Normal speech, gait not observed. PSYCH: Normal mood, normal affect. SKIN: Warm, dry, normal turgor, no rashes or lesions noted Laboratory Results - last 24 hr 12/29/18 12/29/18 05:55 05:55 WBC 8.3 RBC 4.16 Hgb 11.8 Hct 36.0 MCV 86.4 MCH 28.3 MCHC 32.7 RDW 16.9 H Plt Count 261 MPV 8.4 Absolute Neuts (auto) 6.1 Neutrophils % 73.5 Lymphocytes % 15.7 D Monocytes % 7.7 D Eosinophils % 2.5 D Basophils % 0.6 D Nucleated RBC % 0 Sodium 141 Potassium 3.7 Chloride 102 Carbon Dioxide 29 Anion Gap 9 BUN 83.1 H Creatinine 2.7 H Est GFR (CKD-EPI)AfAm 17.78 Est GFR (CKD-EPI)NonAf 15.34 Random Glucose 106 Calcium 9.5 Active Medications Acetaminophen (Tylenol -) 650 mg PO Q6H PRN PRN Reason: pain Last Admin: 12/28/18 11:54 Dose: 650 mg Apixaban (Eliquis -) 2.5 mg PO BID [facility] Last Admin: 12/29/18 09:28 Dose: 2.5 mg Atorvastatin Calcium (Lipitor -) 20 mg PO HS [facility] Last Admin: 12/28/18 21:49 Dose: 20 mg Diltiazem HCl (Cardizem Injection -) 10 mg IVPUSH Q4H PRN PRN Reason: TACHYCARDIA Last Admin: 12/26/18 11:03 Dose: 10 mg Diltiazem HCl (Cardizem Cd -) 120 mg PO DAILY [facility] Last Admin: 12/29/18 09:27 Dose: 120 mg Docusate Sodium (Colace -) 300 mg PO HS [facility] Last Admin: 12/28/18 21:48 Dose: 300 mg Furosemide (Lasix -) 40 mg PO DAILY [facility] Last Admin: 12/29/18 09:28 Dose: 40 mg Levalbuterol HCl (Xopenex) 0.31 mg IH RTID [facility] Last Admin: 12/29/18 07:58 Dose: 0.31 mg Melatonin (Melatonin) 3 mg PO HS [facility] Last Admin: 12/28/18 21:49 Dose: 3 mg Metoprolol Tartrate (Lopressor Injection -) 5 mg IVPUSH Q4H PRN PRN Reason: TACHYCARDIA Last Admin: 12/25/18 13:20 Dose: 5 mg Metoprolol Tartrate (Lopressor -) 50 mg PO BID [facility] Last Admin: 12/29/18 09:28 Dose: 50 mg Polyethylene Glycol (Miralax (For Daily Use) -) 17 gm PO DAILY [facility] Last Admin: 12/29/18 09:28 Dose: 17 grams ASSESSMENT/PLAN: 88 y/o F w PMH COPD on home O2, Afib on eliquis, CVA, CAD, HTN, HLD, CKD, whom presented to the ED w dyspnea on exertion, admitted for acute on chronic hypoxic and hypercapneic respiratory failure # Acute on chronic hypoxic and hypercapneic respiratory failure - Likely 2/2 CHF exacerbation - Unlikely COPD, steroids not indicated at this time - IV lasix 40mg PRN given today - Plan for PO lasix tomorrow - Water restricted to 1 L - Stockings recommended - Cont. PO Lasix and PRN IV Lasix - Levalbuterol IH RTID - Cont. 3L supplemental O2 to keep SpO2>90% - Pulmonology and cardiology consulted # Acute decompensated diastolic CHF - Echo shows normal LV function, moderate MR, moderate TR, RV Pressure elevated at 30-40mmHg, mild - Cont. PO Lasix 40mg daily - Iv Lasix 40mg given again today - Daily weights, I&O - Cardiology consulted (Dr. Wayne) # Afib with RVR - [id number] score of 7-8 now on DOAC - Cont. cardizem Cd 120mg daily and lopressor 50mg BID - Cardizem and lopressor Iv PRN - Cont. Eliquis 2.5mg BID - Cardiology consulted # Acute on CKD - Cr stable at 2.9 today - Likely from volume overload - Baseline Cr 2.3 - Cont. to monitor renal function - Avoid nephrotoxic agents # Constipation - BM overnight - Cont. Miralax and colace # Leukocytosis, resolved - Likely reactive - No signs of infection - Afebrile overnight # HTN - Cont. cardizem, lopressor and lasix #HLD -Continue Lipitor 20mg PO HS # DM - ISS - BGM # F/E/N - No standing fluid; monitor I/O strictly - Cont. to follow electrolytes - Sodium controlled diet # Prophylaxis - Eliquis 2.5 mg BID # Disposition - Full code - Cont. telemetry - Family agreeable to d/c to cardiac rehab as out-pt Jorge Marshall MD Visit type - Emergency Visit Emergency Visit: No - New Patient This patient is new to me today: No - Critical Care Critical Care patient: No - Discharge Referral Referred to [facility] Med P.C.: No ATTENDING PHYSICIAN STATEMENT I saw and evaluated the patient. I reviewed the resident's note and discussed the case with the resident. I agree with the resident's findings and plan as documented. SUBJECTIVE: OBJECTIVE: ASSESSMENT AND PLAN:
[2018-12-29] MEDS: ACETAMINOPHEN 325 MG TABLET (FP) PO PRN (22:11)
[2018-12-29] MEDS: ATORVASTATIN CA 20 MG TABLET (FP) PO SCH (22:12)
[2018-12-29] MEDS: DOCUSATE SODIUM 100 MG CAPSULE (FP) PO SCH (22:13)
[2018-12-29] MEDS: MELATONIN 1 MG TABLET PO SCH (22:13)
[2018-12-30] MEDS: LEVALBUTEROL HCL 0.31 MG/3 ML VIAL.NEB IH SCH ×3 (07:30→20:50)
[2018-12-30 09:07] LABS: BLOOD UREA NITROGEN 67.8 mg/dL (7-18); CALCIUM 9.2 mg/dL (8.5-10.1); CREATININE 2.6 mg/dL (0.55-1.3); MAGNESIUM 2.3 mg/dL (1.8-2.4); PHOSPHOROUS 4.5 mg/dL (2.5-4.9); POTASSIUM 3.3 mmol/L (3.5-5.1)
--- NOTE | 2018-12-30 10:06 | PN ---
Progress Note, Physician Chief Complaint: Events noted Intermittent dyspnea History of Present Illness: Patient was seen and examined. Awake and alert. Chart was reviewed Denies chest pain or palpitations - Current Medication List Current Medications: Active Medications Acetaminophen (Tylenol -) 650 mg PO Q6H PRN PRN Reason: pain Last Admin: 12/29/18 22:11 Dose: 650 mg Apixaban (Eliquis -) 2.5 mg PO BID [facility] Last Admin: 12/29/18 22:12 Dose: 2.5 mg Atorvastatin Calcium (Lipitor -) 20 mg PO [facility] Last Admin: 12/29/18 22:12 Dose: 20 mg Diltiazem HCl (Cardizem Injection -) 10 mg IVPUSH Q4H PRN PRN Reason: TACHYCARDIA Last Admin: 12/26/18 11:03 Dose: 10 mg Diltiazem HCl (Cardizem Cd -) 120 mg PO DAILY [facility] Last Admin: 12/29/18 09:27 Dose: 120 mg Docusate Sodium (Colace -) 300 mg PO [facility] Last Admin: 12/29/18 22:13 Dose: 300 mg Furosemide (Lasix -) 40 mg PO DAILY [facility] Last Admin: 12/29/18 09:28 Dose: 40 mg Levalbuterol HCl (Xopenex) 0.31 mg IH RTID [facility] Last Admin: 12/30/18 07:30 Dose: 0.31 mg Melatonin (Melatonin) 3 mg PO HS [facility] Last Admin: 12/29/18 22:13 Dose: 3 mg Metoprolol Tartrate (Lopressor Injection -) 5 mg IVPUSH Q4H PRN PRN Reason: TACHYCARDIA Last Admin: 12/25/18 13:20 Dose: 5 mg Metoprolol Tartrate (Lopressor -) 50 mg PO BID [facility] Last Admin: 12/29/18 22:12 Dose: 50 mg Polyethylene Glycol (Miralax (For Daily Use) -) 17 gm PO DAILY [facility] Last Admin: 12/29/18 09:28 Dose: 17 grams - Objective Vital Signs: Vital Signs Temperature 98 F 12/30/18 06:00 Pulse Rate 99 H 12/30/18 06:00 Respiratory Rate 20 12/30/18 06:00 Blood Pressure 128/72 12/30/18 06:00 O2 Sat by Pulse Oximetry (%) 96 08/26/19 21:00 Eyes: Yes: PERRL HENT: Yes: Atraumatic Neck: Yes: Supple Cardiovascular: Yes: Pulse Irregular, S1, S2 Respiratory: Yes: Diminished Gastrointestinal: Yes: Normal Bowel Sounds, Soft. No: Tenderness Edema: Yes Edema: LLE: Trace, RLE: Trace Additional Findings/Remarks: Review of Systems Constitutional: denies: Chills or Fever Cardiovascular: denies: chest pain, palpitations (+) SOB Respiratory: (+) Cough, sputum, denies: hemoptysis Gastrointestinal: denies: Nausea, Vomiting, Diarrhea, Constipation or Abdominal Pain Genitourinary: denies: Dysuria Musculoskeletal: denies: Joint Pain Neurological: denies: Dizziness or Headache denies: seizure, syncope Labs: CBC, BMP 12/29/18 05:55 12/30/18 06:48 Problem List - Problems (1) Acute on chronic diastolic CHF (congestive heart failure) Code(s): I50.33 - ACUTE ON CHRONIC DIASTOLIC (CONGESTIVE) HEART FAILURE (2) CKD (chronic kidney disease) Code(s): N18.9 - CHRONIC KIDNEY DISEASE, UNSPECIFIED Qualifiers: Chronic kidney disease stage: stage 3 (moderate) Qualified Code(s): N18.3 - Chronic kidney disease, stage 3 (moderate) (3) Hyperlipidemia Code(s): E78.5 - HYPERLIPIDEMIA, UNSPECIFIED Qualifiers: Hyperlipidemia type: pure hypercholesterolemia Qualified Code(s): E78.00 - Pure hypercholesterolemia, unspecified; E78.0 - Pure hypercholesterolemia (4) Sepsis Code(s): A41.9 - SEPSIS, UNSPECIFIED ORGANISM (5) Acute on chronic respiratory failure with hypoxia and hypercapnia Code(s): J96.21 - ACUTE AND CHRONIC RESPIRATORY FAILURE WITH HYPOXIA; J96.22 - ACUTE AND CHRONIC RESPIRATORY FAILURE WITH HYPERCAPNIA (6) COPD exacerbation Code(s): J44.1 - CHRONIC OBSTRUCTIVE PULMONARY DISEASE W (ACUTE) EXACERBATION (7) FRYE (dyspnea on exertion) Code(s): R06.09 - OTHER FORMS OF DYSPNEA (8) Pulmonary HTN Code(s): I27.20 - PULMONARY HYPERTENSION, UNSPECIFIED (9) Sleep apnea Code(s): G47.30 - SLEEP APNEA, UNSPECIFIED (10) History of atrial fibrillation Code(s): Z86.79 - PERSONAL HISTORY OF OTHER DISEASES OF THE CIRCULATORY SYSTEM Assessment/Plan 1. Acute on chronic hypercapneic, hypoxemic respiratory failure 2. Acute on chronic class I-II NYHA classification LV diastolic failure- persistent symptoms, history of cardiomyopathy post LOG SNAKER-P 3. CAD visual coronary artery calcification negative MPI study for myocardial ischemia, angina pectoris 4. Paroxysmal atrial fibrillation with periods of rapid ventricular response [id number] score of 7-8 now on DOAC 5. Advanced COPD on home oxygen therapy 6. CLBBB as above post LOG SNAKER-P 7. HTN 8. Hypercholesterolemia 9. History of CVA 10. Acute on CKD PLAN: 1. Continue diuretics - PO Lasix with close monitoring or renal function and electrolytes 2. Continue Lopressor and Cardizem CD for rate control 3. Recommend the resumption of Diovan once renal function improves 4. Continue Eliquis 5. Continue Lipitor 6. Consider renal input 7. Continue present pulmonary treatment El Deleon MD
[2018-12-30] MEDS: APIXABAN 2.5 MG TABLET PO SCH ×2 (10:39→22:02)
[2018-12-30] MEDS: POLYETHYLENE GLYCOL 3350 119 GM BTL PO SCH (10:39)
[2018-12-30] MEDS: METOPROLOL TARTRATE 50 MG TABLET (FP) PO SCH ×2 (10:39→22:03)
[2018-12-30] MEDS: FUROSEMIDE 40 MG TABLET (FP) PO SCH (10:39)
--- NOTE | 2018-12-30 11:02 | PN ---
Progress Note, Physician History of Present Illness: PULMONARY ALERT,ON NASAL CANNULA C/O SOB - Current Medication List Current Medications: Active Medications Acetaminophen (Tylenol -) 650 mg PO Q6H PRN PRN Reason: pain Last Admin: 12/29/18 22:11 Dose: 650 mg Apixaban (Eliquis -) 2.5 mg PO BID [facility] Last Admin: 12/30/18 10:39 Dose: 2.5 mg Atorvastatin Calcium (Lipitor -) 20 mg PO HS [facility] Last Admin: 12/29/18 22:12 Dose: 20 mg Diltiazem HCl (Cardizem Injection -) 10 mg IVPUSH Q4H PRN PRN Reason: TACHYCARDIA Last Admin: 12/26/18 11:03 Dose: 10 mg Diltiazem HCl (Cardizem Cd -) 120 mg PO DAILY [facility] Last Admin: 12/30/18 10:38 Dose: 120 mg Docusate Sodium (Colace -) 300 mg PO HS [facility] Last Admin: 12/29/18 22:13 Dose: 300 mg Furosemide (Lasix -) 40 mg PO DAILY [facility] Last Admin: 12/30/18 10:39 Dose: 40 mg Levalbuterol HCl (Xopenex) 0.31 mg IH RTID [facility] Last Admin: 12/30/18 07:30 Dose: 0.31 mg Melatonin (Melatonin) 3 mg PO HS [facility] Last Admin: 12/29/18 22:13 Dose: 3 mg Metoprolol Tartrate (Lopressor Injection -) 5 mg IVPUSH Q4H PRN PRN Reason: TACHYCARDIA Last Admin: 12/25/18 13:20 Dose: 5 mg Metoprolol Tartrate (Lopressor -) 50 mg PO BID [facility] Last Admin: 12/30/18 10:39 Dose: 50 mg Polyethylene Glycol (Miralax (For Daily Use) -) 17 gm PO DAILY [facility] Last Admin: 12/30/18 10:39 Dose: 17 grams - Objective Vital Signs: Vital Signs Temperature 98 F 12/30/18 06:00 Pulse Rate 99 H 12/30/18 06:00 Respiratory Rate 20 12/30/18 06:00 Blood Pressure 128/72 12/30/18 06:00 O2 Sat by Pulse Oximetry (%) 96 12/29/18 21:00 Constitutional: Yes: Well Nourished, Calm Eyes: Yes: WNL HENT: Yes: WNL Neck: Yes: WNL Cardiovascular: Yes: Pulse Irregular, S1, S2 Respiratory: Yes: Diminished, Rales (FEW BIBASIALR RALES) Gastrointestinal: Yes: Normal Bowel Sounds, Soft Extremities: Yes: WNL Edema: Yes Labs: CBC, BMP Problem List - Problems (1) Acute on chronic diastolic CHF (congestive heart failure) Code(s): I50.33 - ACUTE ON CHRONIC DIASTOLIC (CONGESTIVE) HEART FAILURE (2) Atrial fibrillation with rapid ventricular response Code(s): I48.91 - UNSPECIFIED ATRIAL FIBRILLATION (3) CKD (chronic kidney disease) Code(s): N18.9 - CHRONIC KIDNEY DISEASE, UNSPECIFIED Qualifiers: Chronic kidney disease stage: stage 3 (moderate) Qualified Code(s): N18.3 - Chronic kidney disease, stage 3 (moderate) (4) Chronic anticoagulation Code(s): Z79.01 - SENIOR CARE (CURRENT) USE OF ANTICOAGULANTS (5) Acute on chronic respiratory failure with hypoxia and hypercapnia Code(s): J96.21 - ACUTE AND CHRONIC RESPIRATORY FAILURE WITH HYPOXIA; J96.22 - ACUTE AND CHRONIC RESPIRATORY FAILURE WITH HYPERCAPNIA (6) FRYE (dyspnea on exertion) Code(s): R06.09 - OTHER FORMS OF DYSPNEA (7) Pulmonary HTN Code(s): I27.20 - PULMONARY HYPERTENSION, UNSPECIFIED (8) History of COPD Code(s): Z87.09 - PERSONAL HISTORY OF OTHER DISEASES OF THE RESPIRATORY SYSTEM Assessment/Plan ASSESSMENT AND PLAN: Acute on Chronic Hypoxic and Hypercapneic Respiratory Failure Acute on Chronic Systolic/Diastolic Heart Failure Atrial Fibrillation with RVR improved PULMONARY HTN COPD CAD HTN Hyperlipidemia CKD - lasix - monitor urine output, creatinine - daily weights - inhaled bronchodilators - O2 to keep SpO2 >90% - rate control as per Cardiology - eliquis - consider short course of steroids DR HORTON
[2018-12-30] MEDS ORDERED: POTASSIUM CHLORIDE TABS 20 MEQ TABLET.ER (FP) PO ONE (12:49)
--- NOTE | 2018-12-30 13:48 | CONSULT ---
Consultation: CONSULT SERVICE: Nephrology HISTORY OF PRESENT ILLNESS: 88yo F with h/o CKD (stage 3a), COPD (2LNC), pAF, CAD with mixed systolic and diastolic dysfunction, s/p AICD/PPM placement, HTN, and HLD who initially presented with shortness of breath and chest pain alongside of tachypnea and tachycardia. PT was admitted for decompensated heart failure 2/2 to [facility] with RVR. Pt was treated with lasix and rate controlled with Cardizem throughout her stay. We were asked to medically evaluate this patient due continued elevation in Cr from baseline (1.9-2.1). Today patient's breathing is improved, however she reports still feeling dyspneic. Pt has used PRN BiPap for work of breathing but has stayed on NC for the day. Pt reports drinking copious amounts of water without limitation. Pt remains +3Kg from admission weight today. Telemetry: Episodes of tachycardia above paced rhythm noted intermittently MedHx: As above Surgical Hx: PPM/AICD implantation SoHx: Tobacco - former smoker (56years @1ppd) Alcohol - Denies Illicit drugs - denies FamHx: Mother - - heart Dz REVIEW OF SYSTEMS: As per HPI PHYSICAL EXAMINATION Vital Signs - 24 hr 12/29/18 12/29/18 12/29/18 14:00 18:40 21:00 Temperature 98.0 F 99.1 F Pulse Rate 77 93 H Respiratory 20 Rate Blood Pressure 109/68 134/72 O2 Sat by Pulse 96 Oximetry (%) 12/29/18 12/30/18 12/30/18 22:00 01:31 06:00 Temperature 97.7 F 98.1 F 98 F Pulse Rate 91 H 89 99 H Respiratory 20 20 20 Rate Blood Pressure 121/69 134/78 128/72 O2 Sat by Pulse Oximetry (%) 12/30/18 12/30/18 09:00 10:00 Temperature 98.0 F Pulse Rate 94 H Respiratory 20 20 Rate Blood Pressure 123/77 O2 Sat by Pulse 99 Oximetry (%) GENERAL: NAD, Awake, alert, and fully oriented HEENT: NC/AT, BENITEZ, sclera anicteric, MMM NECK: No JVD appreciated at rest LUNGS:Bilateral rales in lower lobe drake. No wheezes. 3LNC currently HEART: RRR, normal S1 and S2 without murmur ABDOMEN: Soft, NT/ND, normoactive bowel sounds, no guarding MUSCULOSKELETAL: No CVA tenderness. EXTREMITIES: 2+ DP pulses, warm, well-perfused. No calf tenderness. 1+ peripheral edema b/l to the knees. PSYCHIATRIC: Cooperative. Good eye contact. Appropriate mood and affect. SKIN: Warm, dry, no rashes or lesions noted. Laboratory Results - last 24 hr 12/30/18 06:48 Sodium 144 Potassium 3.3 L Chloride 104 Carbon Dioxide 30 Anion Gap 10 BUN 67.8 H Creatinine 2.6 H Est GFR (CKD-EPI)AfAm 18.61 Est GFR (CKD-EPI)NonAf 16.06 Random Glucose 184 H Calcium 9.2 Phosphorus 4.5 Magnesium 2.3 Active Medications Generic Name Dose Route Start Last Admin Trade Name Freq PRN Reason Stop Dose Admin Acetaminophen 650 mg 12/27/18 09:34 12/29/18 22:11 Tylenol - PO 650 mg Q6H PRN Administration pain Apixaban 2.5 mg 12/24/18 22:00 12/30/18 10:39 Eliquis - PO 2.5 mg BID KESHAWN Administration Atorvastatin Calcium 20 mg 12/24/18 22:00 12/29/18 22:12 Lipitor - PO 20 mg HS KESHAWN Administration Diltiazem HCl 10 mg 12/24/18 20:08 12/26/18 11:03 Cardizem Injection - IVPUSH 10 mg Q4H PRN Administration TACHYCARDIA Diltiazem HCl 120 mg 12/26/18 11:30 12/30/18 10:38 Cardizem Cd - PO 120 mg DAILY KESHAWN Administration Docusate Sodium 300 mg 12/27/18 22:00 12/29/18 22:13 Colace - PO 300 mg HS KESHAWN Administration Furosemide 40 mg 12/26/18 10:00 12/30/18 10:39 Lasix - PO 40 mg DAILY KESHAWN Administration Levalbuterol HCl 0.31 mg 12/27/18 14:00 12/30/18 07:30 Xopenex IH 0.31 mg RTID KESHAWN Administration Melatonin 3 mg 12/28/18 22:00 12/29/18 22:13 Melatonin PO 3 mg HS KESHAWN Administration Metoprolol Tartrate 5 mg 12/24/18 14:10 12/25/18 13:20 Lopressor Injection - IVPUSH 5 mg Q4H PRN Administration TACHYCARDIA Metoprolol Tartrate 50 mg 12/25/18 22:00 12/30/18 10:39 Lopressor - PO 50 mg BID KESHAWN Administration Polyethylene Glycol 17 gm 12/27/18 13:45 12/30/18 10:39 Miralax (For Daily Use) - PO 17 grams DAILY KESHAWN Administration ASSESSMENT/PLAN: Acute on chronic renal insufficiency Acute on chronic heart failure, mixed systolic and diastolic Paroxysmal Atrial fibrillation with RVR COPD on home O2 CAD HTN HLD --Pt hypervolemic on exam; will give another Lasix 40mg PO now and change to 40mg PO BID to start tomorrow --Monitor daily weights; I&O's --Monitor Cr and HCO3 on labs --Renal ultrasound ordered for r/o obstruction --Ordered UA, UCr, UUrea for calculation of FeUrea --Restrict to 1.2 L of fluid in general --Rate control per cardiology --Rest per primary team FEN: Fluids: Avoid Electrolyte abnormalities: Hypokalemia with active lasix; (Kdur 40mEq given today) Nutrition: 1.2L Fluid restriction PPX: DVT - already on Eliquis for AC GI - Not indicated Case discussed with Dr. Sophie Gilliam, DO - IM PGY-3 Visit type - Emergency Visit Emergency Visit: Yes ED Registration Date: 12/24/18 Care time: The patient presented to the Emergency Department on the above date and was hospitalized for further evaluation of their emergent condition. - New Patient This patient is new to me today: No - Critical Care Critical Care patient: No ATTENDING PHYSICIAN STATEMENT I saw and evaluated the patient. I reviewed the resident's note and discussed the case with the resident. I agree with the resident's findings and plan as documented. SUBJECTIVE: OBJECTIVE: ASSESSMENT AND PLAN:
[2018-12-30] MEDS ORDERED: FUROSEMIDE 40 MG TABLET (FP) PO ONE (14:01)
--- NOTE | 2018-12-30 16:20 | PN ---
Teaching Attending Note Name of Resident: Laith Gilliam (Nephrology) ATTENDING PHYSICIAN STATEMENT I saw and evaluated the patient. I reviewed the resident's note and discussed the case with the resident. I agree with the resident's findings and plan as documented. Pt seen and examined at bedside. Called to evaluate pt for elevated creatinine and fluid overload. She has history of CKD and follows with Dr Perkins. She complains of lower ext edema. She is not compliant with fluid intake. She denies dysuria or hematuria. pmhx ckd htn allergies asa family hx denies social hx denies ros dyspnea on exertion Laboratory Tests 11/03/18 11/04/18 11/05/18 06:30 06:00 06:30 Creatinine 2.5 H 2.4 H 2.3 H Urine Protein Urine Blood 11/06/18 12/24/18 12/24/18 06:39 10:00 14:13 Creatinine 2.3 H 2.0 H Urine Protein 2+ H Urine Blood Negative 12/25/18 12/26/18 12/27/18 06:24 06:08 08:30 Creatinine 2.6 H 2.7 H 2.9 H Urine Protein Urine Blood 12/28/18 12/29/18 12/30/18 05:45 05:55 06:48 Creatinine 2.9 H 2.7 H 2.6 H Urine Protein Urine Blood Current Medications Generic Name Dose Route Start Last Admin Trade Name Freq PRN Reason Stop Dose Admin Acetaminophen 650 mg 12/27/18 09:34 12/29/18 22:11 Tylenol - PO 650 mg Q6H PRN Administration pain Apixaban 2.5 mg 12/24/18 22:00 12/30/18 10:39 Eliquis - PO 2.5 mg BID KESHAWN Administration Atorvastatin Calcium 20 mg 12/24/18 22:00 12/29/18 22:12 Lipitor - PO 20 mg HS KESHAWN Administration Diltiazem HCl 10 mg 12/24/18 20:08 12/26/18 11:03 Cardizem Injection - IVPUSH 10 mg Q4H PRN Administration TACHYCARDIA Diltiazem HCl 120 mg 12/26/18 11:30 12/30/18 10:38 Cardizem Cd - PO 120 mg DAILY KESHAWN Administration Docusate Sodium 300 mg 12/27/18 22:00 12/29/18 22:13 Colace - PO 300 mg HS KESHAWN Administration Furosemide 40 mg 12/31/18 06:00 Lasix - PO BID@0600,1400 KESHAWN Levalbuterol HCl 0.31 mg 12/27/18 14:00 12/30/18 14:47 Xopenex IH 0.31 mg RTID KESHAWN Administration Melatonin 3 mg 12/28/18 22:00 12/29/18 22:13 Melatonin PO 3 mg HS KESHAWN Administration Metoprolol Tartrate 5 mg 12/24/18 14:10 12/25/18 13:20 Lopressor Injection - IVPUSH 5 mg Q4H PRN Administration TACHYCARDIA Metoprolol Tartrate 50 mg 12/25/18 22:00 12/30/18 10:39 Lopressor - PO 50 mg BID KESHAWN Administration Polyethylene Glycol 17 gm 12/27/18 13:45 12/30/18 10:39 Miralax (For Daily Use) - PO 17 grams DAILY KESHAWN Administration cardio s1s2 pulm on nc 02, base crackles gi soft, obese ext plus 2 edema neuro awake and alert Impression 1. CKD 2. PAULA 3. COPD 4. asthma 5. dyspnea 6. HTN 7. a-fib 8. CHF 9. CAD Plan - cont lasix - monitor lytes - replace potassium - check mag - check renal ultrasound - follow lytes - discussed with residents - avoid nsaids
--- NOTE | 2018-12-30 16:59 | PN ---
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 Today patient's breathing is improved, however she reports still feeling dyspneic. Pt has used PRN BiPap but inconsistently. Pt restricted to 1L fluid but non compliant. Pt remains +3Kg from admission weight today. She denies NVFCD. OBJECTIVE: Vital Signs Temp Pulse Resp BP Pulse Ox 98.5 F 101 H 20 138/84 99 12/30/18 14:00 12/30/18 14:00 12/30/18 10:00 12/30/18 14:00 12/30/18 16:06 GENERAL: The patient is awake, alert, and fully oriented, in no acute distress. Speaking Serbian only. HEAD: NCAT EYES: ZAHRAA, EOMI, conjunctiva clear. No ptosis. Wearing corrective lenses. ENT: Ears normal, nares patent, oropharynx clear without exudates, moist mucous membranes. On NC 3L. NECK: Trachea midline, full range of motion, supple. LUNGS: Decreased air entry on RIGHT lower lobe. Clear to auscultation elsewhere. No wheezes, no crackles, no accessory muscle use. HEART: Irregular, S1, S2 without murmur, rub or gallop. ABDOMEN: Obese, soft, nontender, nondistended, normoactive bowel sounds, no guarding, no rebound, no hepatosplenomegaly, no masses. EXTREMITIES: 1+ pitting edema in LE BL. 2+ pulses irregular, warm, well- perfused NEUROLOGICAL: Cranial nerves II through XII grossly intact. Normal speech, gait not observed. PSYCH: Normal mood, normal affect. SKIN: Warm, dry, normal turgor, no rashes or lesions noted Laboratory Results - last 24 hr 12/30/18 06:48 Sodium 144 Potassium 3.3 L Chloride 104 Carbon Dioxide 30 Anion Gap 10 BUN 67.8 H Creatinine 2.6 H Est GFR (CKD-EPI)AfAm 18.61 Est GFR (CKD-EPI)NonAf 16.06 Random Glucose 184 H Calcium 9.2 Phosphorus 4.5 Magnesium 2.3 Active Medications Acetaminophen (Tylenol -) 650 mg PO Q6H PRN PRN Reason: pain Last Admin: 12/29/18 22:11 Dose: 650 mg Apixaban (Eliquis -) 2.5 mg PO BID [facility] Last Admin: 12/30/18 10:39 Dose: 2.5 mg Atorvastatin Calcium (Lipitor -) 20 mg PO HS [facility] Last Admin: 12/29/18 22:12 Dose: 20 mg Diltiazem HCl (Cardizem Injection -) 10 mg IVPUSH Q4H PRN PRN Reason: TACHYCARDIA Last Admin: 12/26/18 11:03 Dose: 10 mg Diltiazem HCl (Cardizem Cd -) 120 mg PO DAILY [facility] Last Admin: 12/30/18 10:38 Dose: 120 mg Docusate Sodium (Colace -) 300 mg PO HS [facility] Last Admin: 12/29/18 22:13 Dose: 300 mg Furosemide (Lasix -) 40 mg PO BID@0600,1400 [facility] Levalbuterol HCl (Xopenex) 0.31 mg IH RTID [facility] Last Admin: 12/30/18 14:47 Dose: 0.31 mg Melatonin (Melatonin) 3 mg PO HS [facility] Last Admin: 12/29/18 22:13 Dose: 3 mg Metoprolol Tartrate (Lopressor Injection -) 5 mg IVPUSH Q4H PRN PRN Reason: TACHYCARDIA Last Admin: 12/25/18 13:20 Dose: 5 mg Metoprolol Tartrate (Lopressor -) 50 mg PO BID [facility] Last Admin: 12/30/18 10:39 Dose: 50 mg Polyethylene Glycol (Miralax (For Daily Use) -) 17 gm PO DAILY [facility] Last Admin: 12/30/18 10:39 Dose: 17 grams ASSESSMENT/PLAN: 88 y/o F w PMH COPD on home O2, Afib on eliquis, CVA, CAD, HTN, HLD, CKD, whom presented to the ED w dyspnea on exertion, admitted for acute on chronic hypoxic and hypercapneic respiratory failure # Acute on chronic hypoxic and hypercapneic respiratory failure - Likely 2/2 CHF exacerbation - Symptoms not improving - Renal function worsening - Nephro consulted (Dr. Barrios) - Water restricted to 1 L; non-compliant. Will re-educate pt. - Stockings recommended - Cont. PO Lasix and PRN IV Lasix - Cont. 3L supplemental O2 to keep SpO2>90% - Pulmonology and cardiology consulted # Acute decompensated diastolic CHF - Echo shows normal LV function, moderate MR, moderate TR, RV Pressure elevated at 30-40mmHg, mild - Cont. PO Lasix 40mg daily - Daily weights, I&O - Cardiology consulted (Dr. Wayne) # Afib with RVR - [id number] score of 7-8 now on DOAC - Cont. cardizem Cd 120mg daily and lopressor 50mg BID - Cardizem and lopressor Iv PRN - Cont. Eliquis 2.5mg BID - Cardiology consulted # Acute on CKD - Cr decreasin (2.6 today) - Likely from volume overload - Baseline Cr 2.3 - Cont. to monitor renal function - Avoid nephrotoxic agents # Constipation - BM overnight - Cont. Miralax # Leukocytosis, resolved - Likely reactive - No signs of infection - Afebrile overnight # HTN - Cont. cardizem, lopressor and lasix # HLD -Continue Lipitor 20mg PO HS # DM - ISS - BGM # F/E/N - No standing fluid; monitor I/O strictly - Cont. to follow electrolytes - Sodium controlled diet # Prophylaxis - Eliquis 2.5 mg BID # Disposition - Full code - Cont. telemetry - Family agreeable to d/c to cardiac rehab as out-pt Jorge Marshall MD Visit type - Emergency Visit Emergency Visit: No - New Patient This patient is new to me today: No - Critical Care Critical Care patient: No - Discharge Referral Referred to [facility] Med [facility].C[facility] No ATTENDING PHYSICIAN STATEMENT I saw and evaluated the patient. I reviewed the resident's note and discussed the case with the resident. I agree with the resident's findings and plan as documented. SUBJECTIVE: OBJECTIVE: ASSESSMENT AND PLAN:
--- NOTE | 2018-12-30 19:39 | PN ---
Teaching Attending Note Name of Resident: Jorge Marshall ATTENDING PHYSICIAN STATEMENT I saw and evaluated the patient. I reviewed the resident's note and discussed the case with the resident. I agree with the resident's findings and plan as documented. SUBJECTIVE: Patient is feeling better with no acute distress. denies any palpitations. OBJECTIVE: Vital Signs Temperature 98.5 F 12/30/18 14:00 Pulse Rate 101 H 12/30/18 14:00 Respiratory Rate 20 12/30/18 10:00 Blood Pressure 138/84 12/30/18 14:00 O2 Sat by Pulse Oximetry (%) 99 12/30/18 16:06 GENERAL: The patient is awake, alert, and fully oriented, in no acute distress. HEAD: Normal with no signs of trauma. EYES: PERRL, extraocular movements intact, sclera anicteric, conjunctiva clear. ENT: Ears normal, oropharynx clear without exudates, moist mucous membranes. NECK: Trachea midline, full range of motion, supple. LUNGS: Breath sounds equal, clear to auscultation bilaterally, no wheezes, no crackles, no accessory muscle use. HEART: mild tachycardia , Regular rate and rhythm, S1, S2 without murmur, rub or gallop. ABDOMEN: Soft, nontender, nondistended, normoactive bowel sounds, no guarding, no rebound, no hepatosplenomegaly, no masses. EXTREMITIES: 2+ pulses, warm, well-perfused, no edema. NEUROLOGICAL: Cranial nerves II through XII grossly intact. Normal speech, gait not observed. PSYCH: Normal mood, normal affect. SKIN: Warm, dry, normal turgor, no rashes or lesions noted CBCD WBC 8.3 K/mm3 (4.0-10.0) 12/29/18 05:55 RBC 4.16 M/mm3 (3.60-5.2) 12/29/18 05:55 Hgb 11.8 GM/dL (10.7-15.3) 12/29/18 05:55 Hct 36.0 % (32.4-45.2) 12/29/18 05:55 MCV 86.4 fl (80-96) 12/29/18 05:55 MCHC 32.7 g/dl (32.0-36.0) 12/29/18 05:55 RDW 16.9 % (11.6-15.6) H 12/29/18 05:55 Plt Count 261 K/MM3 (134-434) 12/29/18 05:55 MPV 8.4 fl (7.5-11.1) 12/29/18 05:55 CMP Sodium 144 mmol/L (136-145) 12/30/18 06:48 Potassium 3.3 mmol/L (3.5-5.1) L 12/30/18 06:48 Chloride 104 mmol/L (98-107) 12/30/18 06:48 Carbon Dioxide 30 mmol/L (21-32) 12/30/18 06:48 Anion Gap 10 MMOL/L (8-16) 12/30/18 06:48 BUN 67.8 mg/dL (7-18) H 12/30/18 06:48 Creatinine 2.6 mg/dL (0.55-1.3) H 12/30/18 06:48 Random Glucose 184 mg/dL (74-106) H 12/30/18 06:48 Calcium 9.2 mg/dL (8.5-10.1) 12/30/18 06:48 Total Bilirubin 0.7 mg/dL (0.2-1) 12/25/18 06:24 AST 40 U/L (15-37) H 12/25/18 06:24 ALT 20 U/L (13-61) 12/25/18 06:24 Alkaline Phosphatase 89 U/L (45-117) 12/25/18 06:24 Total Protein 6.3 g/dl (6.4-8.2) L 12/25/18 06:24 Albumin 3.0 g/dl (3.4-5.0) L 12/25/18 06:24 CARDIAC ENZYMES Troponin I 0.03 ng/ml (0.00-0.05) 12/24/18 10:00 Current Medications Generic Name Dose Route Start Last Admin Trade Name Freq PRN Reason Stop Dose Admin Acetaminophen 650 mg 12/27/18 09:34 12/29/18 22:11 Tylenol - PO 650 mg Q6H PRN Administration pain Apixaban 2.5 mg 12/24/18 22:00 12/30/18 10:39 Eliquis - PO 2.5 mg BID KESHAWN Administration Atorvastatin Calcium 20 mg 12/24/18 22:00 12/29/18 22:12 Lipitor - PO 20 mg HS KESHAWN Administration Diltiazem HCl 10 mg 12/24/18 20:08 12/26/18 11:03 Cardizem Injection - IVPUSH 10 mg Q4H PRN Administration TACHYCARDIA Diltiazem HCl 120 mg 12/26/18 11:30 12/30/18 10:38 Cardizem Cd - PO 120 mg DAILY KESHAWN Administration Docusate Sodium 300 mg 12/27/18 22:00 12/29/18 22:13 Colace - PO 300 mg HS KESHAWN Administration Furosemide 40 mg 12/31/18 06:00 Lasix - PO BID@0600,1400 KESHAWN Levalbuterol HCl 0.31 mg 12/27/18 14:00 12/30/18 14:47 Xopenex IH 0.31 mg RTID KESHAWN Administration Melatonin 3 mg 12/28/18 22:00 12/29/18 22:13 Melatonin PO 3 mg HS KESHAWN Administration Metoprolol Tartrate 5 mg 12/24/18 14:10 12/25/18 13:20 Lopressor Injection - IVPUSH 5 mg Q4H PRN Administration TACHYCARDIA Metoprolol Tartrate 50 mg 12/25/18 22:00 12/30/18 10:39 Lopressor - PO 50 mg BID KESHAWN Administration Polyethylene Glycol 17 gm 12/27/18 13:45 12/30/18 10:39 Miralax (For Daily Use) - PO 17 grams DAILY KESHAWN Administration Home Medications Medication Instructions Recorded Amlodipine Besylate [Norvasc -] 5 mg PO DAILY 05/22/17 Apixaban [Eliquis] 2.5 mg PO BID 05/22/17 Calcium Carbonate/Vitamin D3 1 each PO WEEKLY 05/22/17 [Calcium 600+D Softgel] Fluticasone/Salmeterol [Advair Hfa 12 gm IH DAILY 05/22/17 230-21 Mcg Inhaler] Lipase/Protease/Amylase [Creon Dr 1 each PO Q8H 05/22/17 36,000 Units Capsule] Metoprolol Succinate 25 mg PO BID 05/22/17 Omeprazole 40 mg PO DAILY 05/22/17 Simvastatin 40 mg PO DAILY 05/22/17 Tiotropium [place] [Spiriva] 2.5 mcg IH BID 05/22/17 Furosemide [Lasix] 40 mg PO DAILY #30 tablet 11/06/18 Valsartan [Diovan] 160 mg PO DAILY 12/24/18 Azithromycin [Zithromax] 500 mg PO ONCE 12/25/18 Furosemide 20 mg PO DAILY 12/25/18 Prednisone 10 mg PO DAILY 12/25/18 Solifenacin Succinate [Vesicare -] 10 tab PO DAILY 12/25/18 ASSESSMENT AND PLAN: Patient is a 88yo female with PMHx COPD on 2L NC, DM, Systolic CHF, and dyslipidemia presented to the ED. wtih progressive worsening shortness of breath and found to be hypoxic /afib with RVR # Acute on chronic hypoxic ,hypercapneic respiratory failure-s/p bipap, now on home 3L NC saturating 92%. likely due to diastolic CHF #P-Afib with RVR. with [id number] score of 7-8 now on Eliquis continue # Acute on chronic [id number] improving on po lasix bid as per nephro. # Acute on CKD: due to volume overload added lasix 40mg po bid per nephro # constipation-improved. cont miralax and colace #T2DM- hold oral agents. iss and bgm # HLD: continue statin # Acute hypokalemia given 40meq Kdur, follow the levels. DVT ppx- on eliquis repeat labs in am
[2018-12-30] MEDS: DOCUSATE SODIUM 100 MG CAPSULE (FP) PO SCH (22:02)
[2018-12-30] MEDS: ATORVASTATIN CA 20 MG TABLET (FP) PO SCH (22:03)
[2018-12-30] MEDS: MELATONIN 1 MG TABLET PO SCH (22:03)
[2018-12-31] MEDS: FUROSEMIDE 40 MG TABLET (FP) PO SCH ×2 (06:01→14:04)
[2018-12-31 06:36] LABS: BASO % 0.5 % (0-2.0); HEMATOCRIT 34.6 % (32.4-45.2); HEMOGLOBIN 11.1 GM/dL (10.7-15.3); LYMPH % 11.6 % (8-40); MCH 27.9 pg (25.7-33.7); MCHC 32.2 g/dl (32.0-36.0); MEAN CELL VOLUME 86.8 fl (80-96); MEAN PLT VOLUME 8.1 fl (7.5-11.1); MONO % 10.8 % (3.8-10.2); NEUT % 73.1 % (42.8-82.8); PLATELET COUNT 259 K/MM3 (134-434); RBC 3.99 M/mm3 (3.60-5.2); RDW 16.6 % (11.6-15.6); WHITE BLOOD COUNT 9.6 K/mm3 (4.0-10.0)
[2018-12-31 06:54] LABS: ALBUMIN 2.8 g/dl (3.4-5.0); BILIRUBIN,TOTAL 0.6 mg/dL (0.2-1); BLOOD UREA NITROGEN 58.8 mg/dL (7-18); CALCIUM 9.2 mg/dL (8.5-10.1); CREATININE 2.2 mg/dL (0.55-1.3); MAGNESIUM 2.1 mg/dL (1.8-2.4); PHOSPHOROUS 3.9 mg/dL (2.5-4.9); POTASSIUM 3.3 mmol/L (3.5-5.1); TOT PROT 5.9 g/dl (6.4-8.2)
[2018-12-31] MEDS: LEVALBUTEROL HCL 0.31 MG/3 ML VIAL.NEB IH SCH ×2 (07:30→14:08)
--- NOTE | 2018-12-31 08:36 | PN ---
Progress Note, Physician Chief Complaint: Events noted Intermittent dyspnea improved History of Present Illness: Patient was seen and examined. Awake and alert. Chart was reviewed Denies chest pain or palpitations - Current Medication List Current Medications: Active Medications Acetaminophen (Tylenol -) 650 mg PO Q6H PRN PRN Reason: pain Last Admin: 12/29/18 22:11 Dose: 650 mg Apixaban (Eliquis -) 2.5 mg PO BID [facility] Last Admin: 12/30/18 22:02 Dose: 2.5 mg Atorvastatin Calcium (Lipitor -) 20 mg PO [facility] Last Admin: 12/30/18 22:03 Dose: 20 mg Diltiazem HCl (Cardizem Injection -) 10 mg IVPUSH Q4H PRN PRN Reason: TACHYCARDIA Last Admin: 12/26/18 11:03 Dose: 10 mg Diltiazem HCl (Cardizem Cd -) 120 mg PO DAILY [facility] Last Admin: 12/30/18 10:38 Dose: 120 mg Docusate Sodium (Colace -) 300 mg PO [facility] Last Admin: 12/30/18 22:02 Dose: 300 mg Furosemide (Lasix -) 40 mg PO BID@0600,1400 [facility] Last Admin: 12/31/18 06:01 Dose: 40 mg Levalbuterol HCl (Xopenex) 0.31 mg IH RTID [facility] Last Admin: 12/31/18 07:30 Dose: Not Given Melatonin (Melatonin) 3 mg PO HS [facility] Last Admin: 12/30/18 22:03 Dose: 3 mg Metoprolol Tartrate (Lopressor Injection -) 5 mg IVPUSH Q4H PRN PRN Reason: TACHYCARDIA Last Admin: 12/25/18 13:20 Dose: 5 mg Metoprolol Tartrate (Lopressor -) 50 mg PO BID [facility] Last Admin: 12/30/18 22:03 Dose: 50 mg Polyethylene Glycol (Miralax (For Daily Use) -) 17 gm PO DAILY [facility] Last Admin: 12/30/18 10:39 Dose: 17 grams - Objective Vital Signs: Vital Signs Temperature 998 F H 12/31/18 05:59 Pulse Rate 104 H 12/31/18 05:59 Respiratory Rate 20 12/31/18 05:59 Blood Pressure 121/85 12/31/18 05:59 O2 Sat by Pulse Oximetry (%) 99 12/31/18 00:06 Neck: Yes: Supple Cardiovascular: Yes: Pulse Irregular, S1, S2 Respiratory: Yes: Diminished Gastrointestinal: Yes: Normal Bowel Sounds, Soft. No: Tenderness Edema: Yes Edema: LLE: Trace, RLE: Trace Additional Findings/Remarks: Review of Systems Constitutional: denies: Chills or Fever Cardiovascular: denies: chest pain, palpitations (+) SOB Respiratory: (+) Cough, sputum, denies: hemoptysis Gastrointestinal: denies: Nausea, Vomiting, Diarrhea, Constipation or Abdominal Pain Genitourinary: denies: Dysuria Musculoskeletal: denies: Joint Pain Neurological: denies: Dizziness or Headache denies: seizure, syncope Labs: CBC, BMP 12/31/18 05:35 12/31/18 05:35 Problem List - Problems (1) Acute on chronic diastolic CHF (congestive heart failure) Code(s): I50.33 - ACUTE ON CHRONIC DIASTOLIC (CONGESTIVE) HEART FAILURE (2) CKD (chronic kidney disease) Code(s): N18.9 - CHRONIC KIDNEY DISEASE, UNSPECIFIED Qualifiers: Chronic kidney disease stage: stage 3 (moderate) Qualified Code(s): N18.3 - Chronic kidney disease, stage 3 (moderate) (3) Hyperlipidemia Code(s): E78.5 - HYPERLIPIDEMIA, UNSPECIFIED Qualifiers: Hyperlipidemia type: pure hypercholesterolemia Qualified Code(s): E78.00 - Pure hypercholesterolemia, unspecified; E78.0 - Pure hypercholesterolemia (4) Sepsis Code(s): A41.9 - SEPSIS, UNSPECIFIED ORGANISM (5) Acute on chronic respiratory failure with hypoxia and hypercapnia Code(s): J96.21 - ACUTE AND CHRONIC RESPIRATORY FAILURE WITH HYPOXIA; J96.22 - ACUTE AND CHRONIC RESPIRATORY FAILURE WITH HYPERCAPNIA (6) COPD exacerbation Code(s): J44.1 - CHRONIC OBSTRUCTIVE PULMONARY DISEASE W (ACUTE) EXACERBATION (7) FRYE (dyspnea on exertion) Code(s): R06.09 - OTHER FORMS OF DYSPNEA (8) Pulmonary HTN Code(s): I27.20 - PULMONARY HYPERTENSION, UNSPECIFIED (9) Sleep apnea Code(s): G47.30 - SLEEP APNEA, UNSPECIFIED (10) History of atrial fibrillation Code(s): Z86.79 - PERSONAL HISTORY OF OTHER DISEASES OF THE CIRCULATORY SYSTEM Assessment/Plan 1. Acute on chronic hypercapneic, hypoxemic respiratory failure 2. Acute on chronic class I-II NYHA classification LV diastolic failure- persistent symptoms, history of cardiomyopathy post WOOL DYER-P 3. CAD visual coronary artery calcification negative MPI study for myocardial ischemia, angina pectoris 4. Paroxysmal atrial fibrillation with periods of rapid ventricular response [id number] score of 7-8 now on DOAC 5. Advanced COPD on home oxygen therapy 6. CLBBB as above post WOOL DYER-P 7. HTN 8. Hypercholesterolemia 9. History of CVA 10. Acute on CKD PLAN: 1. Continue diuretics - PO Lasix with close monitoring or renal function and electrolytes. K supplement 2. Continue Lopressor and Cardizem CD for rate control 3. Recommend the resumption of Diovan once renal function improves 4. Continue Eliquis 5. Continue Lipitor 6. Renal input noted 7. Continue present pulmonary treatment El Deleon MD
[2018-12-31] MEDS ORDERED: PT OWN MED DRAWER 7, Y5N ONE (08:53)
[2018-12-31] MEDS: METOPROLOL TARTRATE 50 MG TABLET (FP) PO SCH (09:46)
[2018-12-31] MEDS: APIXABAN 2.5 MG TABLET PO SCH (09:46)
[2018-12-31] MEDS: POLYETHYLENE GLYCOL 3350 119 GM BTL PO SCH (09:49)
[2018-12-31] MEDS ORDERED: POTASSIUM CHLORIDE ORAL LIQUID 20 MEQ/15 ML PO SCH (10:30)
--- NOTE | 2018-12-31 10:53 | PN ---
Progress Note, Physician History of Present Illness: PULMONARY ALERT,FEELING BETTER,LESS DYSPNEIC - Current Medication List Current Medications: Active Medications Acetaminophen (Tylenol -) 650 mg PO Q6H PRN PRN Reason: pain Last Admin: 12/29/18 22:11 Dose: 650 mg Apixaban (Eliquis -) 2.5 mg PO BID [facility] Last Admin: 12/31/18 09:46 Dose: 2.5 mg Atorvastatin Calcium (Lipitor -) 20 mg PO HS [facility] Last Admin: 12/30/18 22:03 Dose: 20 mg Diltiazem HCl (Cardizem Injection -) 10 mg IVPUSH Q4H PRN PRN Reason: TACHYCARDIA Last Admin: 12/26/18 11:03 Dose: 10 mg Diltiazem HCl (Cardizem Cd -) 120 mg PO DAILY [facility] Last Admin: 12/31/18 09:46 Dose: 120 mg Docusate Sodium (Colace -) 300 mg PO HS [facility] Last Admin: 12/30/18 22:02 Dose: 300 mg Furosemide (Lasix -) 40 mg PO BID@0600,1400 [facility] Last Admin: 12/31/18 06:01 Dose: 40 mg Levalbuterol HCl (Xopenex) 0.31 mg IH RTID [facility] Last Admin: 12/31/18 07:30 Dose: Not Given Melatonin (Melatonin) 3 mg PO HS [facility] Last Admin: 12/30/18 22:03 Dose: 3 mg Metoprolol Tartrate (Lopressor Injection -) 5 mg IVPUSH Q4H PRN PRN Reason: TACHYCARDIA Last Admin: 12/25/18 13:20 Dose: 5 mg Metoprolol Tartrate (Lopressor -) 50 mg PO BID [facility] Last Admin: 12/31/18 09:46 Dose: 50 mg Polyethylene Glycol (Miralax (For Daily Use) -) 17 gm PO DAILY [facility] Last Admin: 12/31/18 09:49 Dose: 17 grams Potassium Chloride (Potassium Chloride Oral Liquid) 40 meq PO BID [facility] Stop: 12/31/18 22:01 - Objective Vital Signs: Vital Signs Temperature 98.4 F 12/31/18 09:45 Pulse Rate 102 H 12/31/18 09:45 Respiratory Rate 22 H 12/31/18 09:45 Blood Pressure 135/81 12/31/18 09:45 O2 Sat by Pulse Oximetry (%) 99 08/28/19 09:00 Constitutional: Yes: Well Nourished, Calm Eyes: Yes: WNL HENT: Yes: WNL Neck: Yes: WNL Cardiovascular: Yes: Pulse Irregular, S1, S2 Respiratory: Yes: Diminished, Rales (FEW BIBASILAR RALES) Gastrointestinal: Yes: Normal Bowel Sounds, Soft Extremities: Yes: WNL Edema: Yes Labs: CBC, BMP 12/31/18 05:35 12/31/18 05:35 INR, PTT INR 1.18 (0.83-1.09) H 12/24/18 09:43 Problem List - Problems (1) Acute on chronic diastolic CHF (congestive heart failure) Code(s): I50.33 - ACUTE ON CHRONIC DIASTOLIC (CONGESTIVE) HEART FAILURE (2) Atrial fibrillation with rapid ventricular response Code(s): I48.91 - UNSPECIFIED ATRIAL FIBRILLATION (3) CKD (chronic kidney disease) Code(s): N18.9 - CHRONIC KIDNEY DISEASE, UNSPECIFIED Qualifiers: Chronic kidney disease stage: stage 3 (moderate) Qualified Code(s): N18.3 - Chronic kidney disease, stage 3 (moderate) (4) Chronic anticoagulation Code(s): Z79.01 - VOLUNTEER MANAGER (CURRENT) USE OF ANTICOAGULANTS (5) Acute on chronic respiratory failure with hypoxia and hypercapnia Code(s): J96.21 - ACUTE AND CHRONIC RESPIRATORY FAILURE WITH HYPOXIA; J96.22 - ACUTE AND CHRONIC RESPIRATORY FAILURE WITH HYPERCAPNIA (6) FRYE (dyspnea on exertion) Code(s): R06.09 - OTHER FORMS OF DYSPNEA (7) Pulmonary HTN Code(s): I27.20 - PULMONARY HYPERTENSION, UNSPECIFIED (8) History of COPD Code(s): Z87.09 - PERSONAL HISTORY OF OTHER DISEASES OF THE RESPIRATORY SYSTEM Assessment/Plan ASSESSMENT AND PLAN: Acute on Chronic Hypoxic and Hypercapneic Respiratory Failure Acute on Chronic Systolic/Diastolic Heart Failure Atrial Fibrillation with RVR improved PULMONARY HTN COPD CAD HTN Hyperlipidemia CKD - lasix - monitor urine output, creatinine - daily weights - inhaled bronchodilators - O2 to keep SpO2 >90% - rate control as per Cardiology - nancy HORTON
--- NOTE | 2018-12-31 13:06 | PN ---
Progress Note, Physician History of Present Illness: Pt seen and examined at bedside. She is awake and alert. She feels that her breathing is improved and her edema is getting better. - Current Medication List Current Medications: Active Medications Acetaminophen (Tylenol -) 650 mg PO Q6H PRN PRN Reason: pain Last Admin: 12/29/18 22:11 Dose: 650 mg Apixaban (Eliquis -) 2.5 mg PO BID [facility] Last Admin: 12/31/18 09:46 Dose: 2.5 mg Atorvastatin Calcium (Lipitor -) 20 mg PO HS [facility] Last Admin: 12/30/18 22:03 Dose: 20 mg Diltiazem HCl (Cardizem Injection -) 10 mg IVPUSH Q4H PRN PRN Reason: TACHYCARDIA Last Admin: 12/26/18 11:03 Dose: 10 mg Diltiazem HCl (Cardizem Cd -) 120 mg PO DAILY [facility] Last Admin: 12/31/18 09:46 Dose: 120 mg Docusate Sodium (Colace -) 300 mg PO HS [facility] Last Admin: 12/30/18 22:02 Dose: 300 mg Furosemide (Lasix -) 40 mg PO BID@0600,1400 [facility] Last Admin: 12/31/18 06:01 Dose: 40 mg Levalbuterol HCl (Xopenex) 0.31 mg IH RTID [facility] Last Admin: 12/31/18 07:30 Dose: Not Given Melatonin (Melatonin) 3 mg PO HS [facility] Last Admin: 12/30/18 22:03 Dose: 3 mg Metoprolol Tartrate (Lopressor Injection -) 5 mg IVPUSH Q4H PRN PRN Reason: TACHYCARDIA Last Admin: 12/25/18 13:20 Dose: 5 mg Metoprolol Tartrate (Lopressor -) 50 mg PO BID [facility] Last Admin: 12/31/18 09:46 Dose: 50 mg Polyethylene Glycol (Miralax (For Daily Use) -) 17 gm PO DAILY [facility] Last Admin: 12/31/18 09:49 Dose: 17 grams Potassium Chloride (Potassium Chloride Oral Liquid) 40 meq PO BID [facility] Stop: 12/31/18 22:01 Last Admin: 12/31/18 11:42 Dose: 40 meq - Objective Vital Signs: Vital Signs Temperature 98.4 F 12/31/18 09:45 Pulse Rate 102 H 12/31/18 09:45 Respiratory Rate 22 H 12/31/18 09:45 Blood Pressure 135/81 12/31/18 09:45 O2 Sat by Pulse Oximetry (%) 99 12/31/18 09:00 Constitutional: Yes: Calm Eyes: Yes: Conjunctiva Clear HENT: Yes: Atraumatic Neck: Yes: Supple Cardiovascular: Yes: S1, S2 Respiratory: Yes: On Nasal O2 Gastrointestinal: Yes: Soft, Abdomen, Obese Genitourinary: Yes: WNL Edema: Yes Edema: LLE: 1+, RLE: 1+ Neurological: Yes: Oriented Psychiatric: Yes: Oriented Labs: CBC, BMP 12/31/18 05:35 12/31/18 05:35 INR, PTT INR 1.18 (0.83-1.09) H 12/24/18 09:43 Problem List - Problems (1) CKD (chronic kidney disease) Code(s): N18.9 - CHRONIC KIDNEY DISEASE, UNSPECIFIED Qualifiers: Chronic kidney disease stage: stage 3 (moderate) Qualified Code(s): N18.3 - Chronic kidney disease, stage 3 (moderate) Assessment/Plan Current Medications Generic Name Dose Route Start Last Admin Trade Name Freq PRN Reason Stop Dose Admin Acetaminophen 650 mg 12/27/18 09:34 12/29/18 22:11 Tylenol - PO 650 mg Q6H PRN Administration pain Apixaban 2.5 mg 12/24/18 22:00 12/31/18 09:46 Eliquis - PO 2.5 mg BID [facility] Administration Atorvastatin Calcium 20 mg 12/24/18 22:00 12/30/18 22:03 Lipitor - PO 20 mg HS [facility] Administration Diltiazem HCl 10 mg 12/24/18 20:08 12/26/18 11:03 Cardizem Injection - IVPUSH 10 mg Q4H PRN Administration TACHYCARDIA Diltiazem HCl 120 mg 12/26/18 11:30 12/31/18 09:46 Cardizem Cd - PO 120 mg DAILY [facility] Administration Docusate Sodium 300 mg 12/27/18 22:00 12/30/18 22:02 Colace - PO 300 mg HS [facility] Administration Furosemide 40 mg 12/31/18 06:00 12/31/18 06:01 Lasix - PO 40 mg BID@0600,1400 [facility] Administration Levalbuterol HCl 0.31 mg 12/27/18 14:00 12/31/18 07:30 Xopenex IH Not Given RTID [facility] Melatonin 3 mg 12/28/18 22:00 12/30/18 22:03 Melatonin PO 3 mg HS [facility] Administration Metoprolol Tartrate 5 mg 12/24/18 14:10 12/25/18 13:20 Lopressor Injection - IVPUSH 5 mg Q4H PRN Administration TACHYCARDIA Metoprolol Tartrate 50 mg 12/25/18 22:00 12/31/18 09:46 Lopressor - PO 50 mg BID [facility] Administration Polyethylene Glycol 17 gm 12/27/18 13:45 12/31/18 09:49 Miralax (For Daily Use) - PO 17 grams DAILY [facility] Administration Potassium Chloride 40 meq 12/31/18 10:30 12/31/18 11:42 Potassium Chloride Oral Liquid PO 12/31/18 22:01 40 meq BID [facility] Administration Impression 1. CKD 2. PAULA 3. COPD 4. asthma 5. dyspnea 6. HTN 7. a-fib 8. CHF 9. CAD Plan - volume status is improving - replace potassium - cont lasix - pt needs outpt follow up, explained that she needs to follow up closely - follow up renal ultrasound - avoid nsaids
[2018-12-31 15:46] VITALS: BP 126/58; PULSE 93; TEMP 98.8
--- NOTE | 2018-12-31 16:14 | PN ---
Teaching Attending Note Name of Resident: Jorge Marshall ATTENDING PHYSICIAN STATEMENT I saw and evaluated the patient. I reviewed the resident's note and discussed the case with the resident. I agree with the resident's findings and plan as documented. SUBJECTIVE: Mild dyspnea, still non-compliant with BiPAP. Non-compliant with Trilogy at home. OBJECTIVE: Afebrile, Hemodynamically Stable. appears comfortable on supplemental O2 via NC. Last Vital Signs Temp Pulse Resp BP Pulse Ox 98.8 F 93 H 22 H 126/58 L 99 12/31/18 14:00 12/31/18 14:00 12/31/18 09:45 12/31/18 14:00 12/31/18 09:00 HEENT - Atraumatic, Normocephalic. Heart - S1, S2, RRR Lungs - decreased air entry. Abdomen - Soft, non-tender. Bowel Sounds normal. Extremities - Edema+, No calf tenderness. Laboratory Results - last 24 hr 12/31/18 12/31/18 05:35 05:35 WBC 9.6 RBC 3.99 Hgb 11.1 Hct 34.6 MCV 86.8 MCH 27.9 MCHC 32.2 RDW 16.6 H Plt Count 259 MPV 8.1 Absolute Neuts (auto) 7.0 Neutrophils % 73.1 Lymphocytes % 11.6 D Monocytes % 10.8 H Eosinophils % 4.0 Basophils % 0.5 Nucleated RBC % 0 Sodium 144 Potassium 3.3 L Chloride 102 Carbon Dioxide 34 H Anion Gap 8 BUN 58.8 H Creatinine 2.2 H Est GFR (CKD-EPI)AfAm 22.77 Est GFR (CKD-EPI)NonAf 19.65 Random Glucose 92 Calcium 9.2 Phosphorus 3.9 Magnesium 2.1 Total Bilirubin 0.6 AST 44 H ALT 38 Alkaline Phosphatase 108 Total Protein 5.9 L Albumin 2.8 L Current Medications Generic Name Dose Route Start Last Admin Trade Name Freq PRN Reason Stop Dose Admin Acetaminophen 650 mg 12/27/18 09:34 12/29/18 22:11 Tylenol - PO 650 mg Q6H PRN Administration pain Apixaban 2.5 mg 12/24/18 22:00 12/31/18 09:46 Eliquis - PO 2.5 mg BID [facility] Administration Atorvastatin Calcium 20 mg 12/24/18 22:00 12/30/18 22:03 Lipitor - PO 20 mg HS [facility] Administration Diltiazem HCl 10 mg 12/24/18 20:08 12/26/18 11:03 Cardizem Injection - IVPUSH 10 mg Q4H PRN Administration TACHYCARDIA Diltiazem HCl 120 mg 12/26/18 11:30 12/31/18 09:46 Cardizem Cd - PO 120 mg DAILY [facility] Administration Docusate Sodium 300 mg 12/27/18 22:00 12/30/18 22:02 Colace - PO 300 mg HS [facility] Administration Furosemide 40 mg 12/31/18 06:00 12/31/18 14:04 Lasix - PO 40 mg BID@0600,1400 [facility] Administration Levalbuterol HCl 0.31 mg 12/27/18 14:00 12/31/18 14:08 Xopenex IH 0.31 mg RTID [facility] Administration Melatonin 3 mg 12/28/18 22:00 12/30/18 22:03 Melatonin PO 3 mg HS [facility] Administration Metoprolol Tartrate 5 mg 12/24/18 14:10 12/25/18 13:20 Lopressor Injection - IVPUSH 5 mg Q4H PRN Administration TACHYCARDIA Metoprolol Tartrate 50 mg 12/25/18 22:00 12/31/18 09:46 Lopressor - PO 50 mg BID [facility] Administration Polyethylene Glycol 17 gm 12/27/18 13:45 12/31/18 09:49 Miralax (For Daily Use) - PO 17 grams DAILY [facility] Administration Potassium Chloride 40 meq 12/31/18 10:30 12/31/18 11:42 Potassium Chloride Oral Liquid PO 12/31/18 22:01 40 meq BID [facility] Administration Home Medications Medication Instructions Recorded Amlodipine Besylate [Norvasc -] 5 mg PO DAILY 05/22/17 Apixaban [Eliquis] 2.5 mg PO BID 05/22/17 Calcium Carbonate/Vitamin D3 1 each PO WEEKLY 05/22/17 [Calcium 600+D Softgel] Fluticasone/Salmeterol [Advair Hfa 12 gm IH DAILY 05/22/17 230-21 Mcg Inhaler] Lipase/Protease/Amylase [Creon Dr 1 each PO Q8H 05/22/17 36,000 Units Capsule] Metoprolol Succinate 25 mg PO BID 05/22/17 Omeprazole 40 mg PO DAILY 05/22/17 Simvastatin 40 mg PO DAILY 05/22/17 Tiotropium [place] [Spiriva] 2.5 mcg IH BID 05/22/17 Furosemide [Lasix] 40 mg PO DAILY #30 tablet 11/06/18 Valsartan [Diovan] 160 mg PO DAILY 12/24/18 Azithromycin [Zithromax] 500 mg PO ONCE 12/25/18 Furosemide 20 mg PO DAILY 12/25/18 Prednisone 10 mg PO DAILY 12/25/18 Solifenacin Succinate [Vesicare -] 10 tab PO DAILY 12/25/18 ASSESSMENT AND PLAN: 88 year old female with history of CRF sec to COPD (on 2L O2 via NC), Chronic Diastolic CHF, CAD, HTN, Dyslipidemia, presented with progressive shortness of breath and found to be hypoxic/hypercapneic, with Atrial fibrillation with RVR. 1. Acute on Chronic Hypoxic/Hypercapneic Respiratory Failure secondary to CHF decompensation Continue Lasix BID Daily weight measurements advised. Cardiology follow up. 2. Atrial fibrillation with RVR. Continue Metoprolol, Cardizem, Eliquis 3. CRF sec to COPD/Pulmonary HTN - on Home O2. Pulmonary follow up. 4. DM 2 - On novolog sliding scale. Oral anti-hyperglycemics held. 5. HLD - continue Statin. 6. Hypokalemia - repleted. Outpatient monitoring. 7. PAULA on CKD - resolved. Creat at baseline. Nephrology follow up on discharge. 8. HTN - controlled on Metoprolol and Diltiazem. Diovan (valsartan) held for now. DVT Px - on Eliquis.
--- NOTE | 2018-12-31 18:05 | DS ---
Physical Exam: SUBJECTIVE: Patient seen and examined OBJECTIVE: Vital Signs Period Temp Pulse Resp BP Sys/Perez Pulse Ox Last 24 Hr 97.8 F-998 F 91-104 20-22 118-139/58-107 99-99 PHYSICAL EXAM GENERAL: The patient is awake, alert, and fully oriented, in no acute distress. HEAD: Normal with no signs of trauma. EYES: PERRL, extraocular movements intact, sclera anicteric, conjunctiva clear. ENT: Ears normal, nares patent, oropharynx clear without exudates, moist mucous membranes. NECK: Trachea midline, full range of motion, supple. LUNGS: Breath sounds equal, clear to auscultation bilaterally, no wheezes, no crackles, no accessory muscle use. HEART: Regular rate and rhythm, S1, S2 without murmur, rub or gallop. ABDOMEN: Soft, nontender, nondistended, normoactive bowel sounds, no guarding, no rebound, no hepatosplenomegaly, no masses. EXTREMITIES: 2+ pulses, warm, well-perfused, no edema. NEUROLOGICAL: Cranial nerves II through XII grossly intact. Normal speech, gait not observed. PSYCH: Normal mood, normal affect. SKIN: Warm, dry, normal turgor, no rashes or lesions noted. LABS Laboratory Results - last 24 hr 12/31/18 12/31/18 05:35 05:35 WBC 9.6 RBC 3.99 Hgb 11.1 Hct 34.6 MCV 86.8 MCH 27.9 MCHC 32.2 RDW 16.6 H Plt Count 259 MPV 8.1 Absolute Neuts (auto) 7.0 Neutrophils % 73.1 Lymphocytes % 11.6 D Monocytes % 10.8 H Eosinophils % 4.0 Basophils % 0.5 Nucleated RBC % 0 Sodium 144 Potassium 3.3 L Chloride 102 Carbon Dioxide 34 H Anion Gap 8 BUN 58.8 H Creatinine 2.2 H Est GFR (CKD-EPI)AfAm 22.77 Est GFR (CKD-EPI)NonAf 19.65 Random Glucose 92 Calcium 9.2 Phosphorus 3.9 Magnesium 2.1 Total Bilirubin 0.6 AST 44 H ALT 38 Alkaline Phosphatase 108 Total Protein 5.9 L Albumin 2.8 L HOSPITAL COURSE: Date of Admission:12/24/18 Date of Discharge: 12/31/18 Jorge Marshall MD Discharge Summary Reason For Visit: COPD Current Active Problems Acute on chronic diastolic CHF (congestive heart failure) (Acute) Atrial fibrillation with rapid ventricular response (Acute) CKD (chronic kidney disease) (Acute) Chest pain (Acute) Chronic anticoagulation (Acute) Hyperlipidemia (Acute) Sepsis (Acute) Condition: Stable - Instructions Diet, Activity, Other Instructions: YOUR VISIT You came to the hospital with shortness of breath. You were admitted to care for your current medical conditions, including lung and heart problems. While here you were also seen by a kidney doctor. It was recommended you limit the total water your drink in a day to 1 L. Your potassium was low and we gave you potassium treatment. You will need to have this checked on Saturday at Dr. Johnson's office. MEDICATIONS Please continue to take your home medications as prescribed. We have increased your home Lasix dose: Lasix 40 mg twice a day by mouth ADDITIONAL CARE Please make an appointment to have your labs drawn for THIS Saturday01/02/19 to check your potassium levels. Please make an appointment to see your primary care provider, Dr. Johnson, 1 week from today. Please make an appointment to see your kidney doctor, Dr. Barrios, 1 week from today. ADDITIONAL INFORMATION Please call 911 or come to the emergency room if you experience vision change, chest pain, shortness of breath, unusual bleeding, loss of alertness, loss of energy or any other alarming symptoms Referrals: Diaz Johnson MD [Primary Care Provider] - 1 Week Michell Barrios MD [Staff Physician] - 1 Week Disposition: HOME - Home Medications Comprehensive Discharge Medication List: Ambulatory Orders Amlodipine Besylate [Norvasc -] 5 mg PO DAILY 05/22/17 Apixaban [Eliquis] 2.5 mg PO BID 05/22/17 Calcium Carbonate/Vitamin D3 [Calcium 600+D Softgel] 1 each PO WEEKLY 05/22/17 Fluticasone/Salmeterol [Advair Hfa 230-21 Mcg Inhaler] 12 gm IH DAILY 05/22/17 Lipase/Protease/Amylase [[place] 36,000 Units Capsule] 1 each PO Q8H 05/22/17 Metoprolol Succinate 25 mg PO BID 05/22/17 Omeprazole 40 mg PO DAILY 05/22/17 Simvastatin 40 mg PO DAILY 05/22/17 Tiotropium [place] [Spiriva] 2.5 mcg IH BID 05/22/17 Furosemide 20 mg PO DAILY 12/25/18 Solifenacin Succinate [Vesicare -] 10 tab PO DAILY 12/25/18 Furosemide [Lasix] 40 mg PO Q12H 30 Days #60 tablet 12/31/18 - Discharge Referral Referred to [facility] No ATTENDING PHYSICIAN STATEMENT I saw and evaluated the patient. I reviewed the resident's note and discussed the case with the resident. I agree with the resident's findings and plan as documented. SUBJECTIVE: OBJECTIVE: ASSESSMENT AND PLAN:
== END 2018-12-31 18:36 | disposition home or self-care (01) | DRG 291 ==
LOC: JER 09:18 → JERBED 11:31 → J4W 19:31
PROVIDERS: ADMIT Internal Medicine
PROC: 5A09357 Assistance with Respiratory Ventilation, Less than 24 Consecutive Hours, Continuous Positive Airway Pressure (ICD-10-PCS; principal; 2018-12-24)
DX: I13.0 Hypertensive heart and chronic kidney disease with heart failure and stage 1 through stage 4 chronic kidney disease, or unspecified chronic kidney disease (principal); I50.43 Acute on chronic combined systolic (congestive) and diastolic (congestive) heart failure; J96.21 Acute and chronic respiratory failure with hypoxia; J96.22 Acute and chronic respiratory failure with hypercapnia; J84.9 Interstitial pulmonary disease, unspecified; N17.9 Acute kidney failure, unspecified; N18.3 Chronic kidney disease, stage 3 (moderate); J43.9 Emphysema, unspecified; G47.30 Sleep apnea, unspecified; N18.9 Chronic kidney disease, unspecified; E87.6 Hypokalemia; I48.0 Paroxysmal atrial fibrillation; E78.5 Hyperlipidemia, unspecified; E66.09 Other obesity due to excess calories; Z68.29 Body mass index [BMI] 29.0-29.9, adult; I44.7 Left bundle-branch block, unspecified; I36.1 Nonrheumatic tricuspid (valve) insufficiency; I34.0 Nonrheumatic mitral (valve) insufficiency; I25.10 Atherosclerotic heart disease of native coronary artery without angina pectoris; D72.829 Elevated white blood cell count, unspecified; I25.2 Old myocardial infarction; Z99.81 Dependence on supplemental oxygen; Z79.01 Long term (current) use of anticoagulants; Z86.73 Personal history of transient ischemic attack (TIA), and cerebral infarction without residual deficits; Z87.891 Personal history of nicotine dependence; K21.9 Gastro-esophageal reflux disease without esophagitis; I27.20 Pulmonary hypertension, unspecified; K59.00 Constipation, unspecified; Z95.810 Presence of automatic (implantable) cardiac defibrillator; Z91.19 Patient's noncompliance with other medical treatment and regimen
CPT/HCPCS: 36415; 36600; 71045-TC-FY; 76775-TC; 80048; 80053; 81003; 82803; 83605; 83735; 83880; 84100; 84484; 85025; 85027; 85610; 85730; 87040; 87086; 93005; 93010; 93306-TC; 94660; 97116-GP; 97161-GP; 99285-25; J0131

== ENCOUNTER 2019-01-13 09:34 | Inpatient (IN) | payer OTHER ==
--- NOTE | 2019-01-13 10:01 | PDOC ---
History of Present Illness - General Stated Complaint: SOB Time Seen by Provider: 01/13/19 09:59 Past History - Past Medical History Allergies/Adverse Reactions: Allergies Allergy/AdvReac Type Severity Reaction Status Date / Time aspirin Allergy Verified 12/24/18 09:29 Home Medications: Ambulatory Orders Amlodipine Besylate [Norvasc -] 5 mg PO DAILY 05/22/17 Apixaban [Eliquis] 2.5 tab PO BID 05/22/17 Fluticasone/Salmeterol [Advair Hfa 230-21 Mcg Inhaler] 12 gm IH DAILY 05/22/17 Lipase/Protease/Amylase [Clair [place]gee 36,000 Units Capsule] 1 each PO Q8H 05/22/17 Metoprolol Succinate 25 mg PO BID 05/22/17 Omeprazole 40 mg PO DAILY 05/22/17 Simvastatin 40 mg PO DAILY 05/22/17 Tiotropium [place] [Spiriva] 2.5 mcg IH BID 05/22/17 Furosemide 40 mg PO DAILY 12/25/18 Furosemide [Lasix -] 20 mg PO HS 01/13/19 Valsartan [Diovan] 160 mg PO DAILY 01/13/19 Anemia: No Asthma: Yes Cancer: No Cardiac Disorders: Yes (AF, PPM, CAD, PR) CVA: Yes COPD: Yes CHF: No Dementia: No Diabetes: No GI Disorders: Yes (GASTRITIS) Disorders: No HTN: Yes Hypercholesterolemia: Yes Liver Disease: No Seizures: No Thyroid Disease: No - Surgical History Abdominal Surgery: No Appendectomy: No Cardiac Surgery: Yes (PACEMAKER) Cholecystectomy: No Lung Surgery: No Neurologic Surgery: No Orthopedic Surgery: No - Immunization History Immunization Up to Date: No - Suicide/Smoking/Psychosocial Hx Smoking Status: Yes Smoking History: Unknown if ever smoked Have you smoked in the past 12 months: No Number of Cigarettes Smoked Daily: 0 If you are a former smoker, when did you quit?: 1994 'Breaking Loose' booklet given: 11/04/18 Hx Alcohol Use: No Drug/Substance Use Hx: No Substance Use Type: None Hx Substance Use Treatment: No ED Treatment Course - LABORATORY CBC & Chemistry Diagram: 01/13/19 10:58 01/13/19 10:58 Medical Decision Making - Medical Decision Making HPI: 88yo F with PMH of CHF, COPD (3L home O2), asthma, CVA, gastritis, afib (eliquis , s/p pacemaker), CAD, PR, HTN, HLD, GERD, and CKD who complaining of SOB. Granddaughter is at the bedside providing collateral history. Patient has been short of breath for the past couple days, but especially last night. Has been unable to lay flat at bedtime. While she has some leg swelling at baseline, it has significantly worsened today. Reports 12/13 epigastric pain which she has had since December which granddaughter says is making her shortness of breath worse. Was recently admitted to our hospital with similar presentation (12/24/18- 12/31/18). Furosemide dose was recently increased to 40mg and patient reports compliance. Also adherent to fluid restriction. No chest pain. Has had a chronic nonproductive cough. While patient used to be able to walk around the house, she can no longer walk across the room without feeling short of breath. Denies fevers, but endorses chills. PCP: Dr. Johnson ROS: Constitutional: no fever, +chills HEENT: no throat pain, no dysphagia Cardiovascular: no chest pain, no palpitations Respiratory: +cough, +shortness of breath Gastrointestinal: +abdominal pain, no nausea Genitourinary: no dysuria, no hematuria Musculoskeletal: no myalgia, no arthralgia Skin: no rash, no itching Neurologic: no headache, no weakness PE: General: Awake, alert, and fully oriented, anxious Head: No signs of trauma Eyes: EOMI, sclera anicteric ENT: Dry mucus membranes Neck: Normal ROM, supple Lungs: Rales present at bilateral bases Cardio: Irregular rhythm, S1 and S2 present Abdomen: Tender to palpation in epigastrium. Soft, nondistended. No guarding, no rebound, no masses Extremities: Normal range of motion, Distal pulses present. 2+ pitting edema in BLE. No calf tenderness SKIN: Warm, Dry, normal turgor Neurologic: Cranial nerves II through XII grossly intact. Normal speech ED Course/MDM: DDX including but not limited to COPD/asthma/CHF exacerbation, ACS, PE, PNA, GERD Labs, EKG, CXR Duonebs Solu-medrol Lasix Presentation consistent with COPD vs. CHF exacerbation. Plan for admission 01/13/19 10:01 Patient at first reluctant to go on BiPAP as it makes her anxious, however, she is now amenable. Placed on Bipap; patient is tolerating 01/13/19 10:27 EKG: rate 124, QTc 517, Afib with RVR, LBBB Diltiazem 10mg ordered for rate control 01/13/19 10:33 Patient appearing more comfortable. She reports improvement in her shortness of breath. Updated granddaughter at the bedside who would like to leave her contact number in the documentation, 01/13/19 10:54 CBC WBC 10.5 K/mm3 (4.0-10.0) H 01/13/19 10:58 RBC 4.18 M/mm3 (3.60-5.2) 01/13/19 10:58 Hgb 11.5 GM/dL (10.7-15.3) 01/13/19 10:58 Hct 36.1 % (32.4-45.2) 01/13/19 10:58 MCV 86.4 fl (80-96) 01/13/19 10:58 MCH 27.4 pg (25.7-33.7) 01/13/19 10:58 MCHC 31.8 g/dl (32.0-36.0) L 01/13/19 10:58 RDW 17.1 % (11.6-15.6) H 01/13/19 10:58 Plt Count 313 K/MM3 (134-434) D 01/13/19 10:58 MPV 8.3 fl (7.5-11.1) 01/13/19 10:58 Absolute Neuts (auto) 8.6 K/mm3 (1.5-8.0) H 01/13/19 10:58 Neutrophils % 81.8 % (42.8-82.8) 01/13/19 10:58 Lymphocytes % 9.9 % (8-40) 01/13/19 10:58 Monocytes % 5.9 % (3.8-10.2) 01/13/19 10:58 Eosinophils % 1.2 % (0-4.5) 01/13/19 10:58 Basophils % 1.2 % (0-2.0) 01/13/19 10:58 Nucleated RBC % 0 % (0-0) 01/13/19 10:58 Mild leukocytosis Pending chemistries 01/13/19 11:28 CMP Sodium 141 mmol/L (136-145) 01/13/19 10:58 Potassium 3.7 mmol/L (3.5-5.1) 01/13/19 10:58 Chloride 97 mmol/L (98-107) L 01/13/19 10:58 Carbon Dioxide 30 mmol/L (21-32) 01/13/19 10:58 Anion Gap 15 MMOL/L (8-16) 01/13/19 10:58 BUN 81.0 mg/dL (7-18) H 01/13/19 10:58 Creatinine 3.6 mg/dL (0.55-1.3) H 01/13/19 10:58 Est GFR (CKD-EPI)AfAm 12.56 01/13/19 10:58 Est GFR (CKD-EPI)NonAf 10.83 01/13/19 10:58 Random Glucose 97 mg/dL (74-106) 01/13/19 10:58 Calcium 9.4 mg/dL (8.5-10.1) 01/13/19 10:58 Magnesium 2.2 mg/dL (1.8-2.4) 01/13/19 10:58 Total Bilirubin 0.9 mg/dL (0.2-1) 01/13/19 10:58 AST 49 U/L (15-37) H 01/13/19 10:58 ALT 21 U/L (13-61) 01/13/19 10:58 Alkaline Phosphatase 152 U/L (45-117) H 01/13/19 10:58 Creatine Kinase 108 U/L (26-192) 01/13/19 10:58 Troponin I 0.04 ng/ml (0.00-0.05) 01/13/19 10:58 B-Natriuretic Peptide 6216.3 pg/ml (5-450) H 01/13/19 10:58 Total Protein 6.4 g/dl (6.4-8.2) 01/13/19 10:58 Albumin 3.1 g/dl (3.4-5.0) L 01/13/19 10:58 Electrolytes unremarkable Elevated BUN and Cr Tpn 0.04 indeterminate BNP 6216 01/13/19 12:33 Patient still in RVR, 30mg po and 10mg IV diltiazem ordered Plan for admission Microblog sent 01/13/19 12:[address] Sampson. Patient will be evaluated by him. Awaiting the name of the attending physician. 01/13/19 13:[address] Ramirez Respiratory called re: abg orders. Per their request, I re-ordered the repeat ABG and the other labels will be cancelled. 01/13/19 14:10 CXR as read by radiology: "Single AP view of the chest was been submitted. Since the prior study of 12/26/2018 again is the prominent mediastinum with pacemaker, sclerotic knob and fullness of the right hilum. There are congestive changes. There are progressive bibasilar pleural effusions with basilar atelectasis or infiltrates. Correlation recommended Impression: Worse. Progressive bibasilar changes. " 01/13/19 22:16 *DC/Admit/Observation/Transfer Diagnosis at time of Disposition: COPD exacerbation CHF exacerbation Qualifiers: Heart failure type: unspecified Qualified Code(s): I50.9 - Heart failure, unspecified - Discharge Dispostion Condition at time of disposition: Guarded Decision to Admit order: Yes - Referrals - Patient Instructions - Post Discharge Activity
[2019-01-13] MEDS ORDERED: ALBUTEROL SO4 2.5/IPRATROPIUM 0.5 INH SOL 3 ML VIAL.NEB. NEB ONE ×2 (10:18→10:30)
[2019-01-13] MEDS ORDERED: FUROSEMIDE 40 MG/4 ML INJECTABLE VIAL IVPUSH ONE ×2 (10:19→11:11)
[2019-01-13] MEDS ORDERED: methylPREDNISolone NA SUCC 125 MG/2 ML VIAL IVPB ONE (10:19)
[2019-01-13] MEDS ORDERED: FUROSEMIDE 40 MG/4 ML INJECTABLE VIAL ONE ×3 (10:31→16:52)
[2019-01-13] MEDS ORDERED: methylPREDNISolone NA SUCC 125 MG/2 ML VIAL ONE (10:31)
[2019-01-13] MEDS ORDERED: dilTIAZem HCL 50 MG/10 ML - 10 ML VIAL IVPUSH ONE ×2 (10:33→12:41)
[2019-01-13] MEDS ORDERED: dilTIAZem HCL 125 MG/25 ML - 25 ML VIAL ONE ×2 (10:40→12:56)
[2019-01-13 11:16] LABS: BASO % 1.2 % (0-2.0); EOS % 1.2 % (0-4.5); HEMATOCRIT 36.1 % (32.4-45.2); HEMOGLOBIN 11.5 GM/dL (10.7-15.3); LYMPH % 9.9 % (8-40); MCH 27.4 pg (25.7-33.7); MCHC 31.8 g/dl (32.0-36.0); MEAN CELL VOLUME 86.4 fl (80-96); MEAN PLT VOLUME 8.3 fl (7.5-11.1); MONO % 5.9 % (3.8-10.2); NEUT % 81.8 % (42.8-82.8); PLATELET COUNT 313 K/MM3 (134-434); RBC 4.18 M/mm3 (3.60-5.2); RDW 17.1 % (11.6-15.6); WHITE BLOOD COUNT 10.5 K/mm3 (4.0-10.0)
[2019-01-13 11:25] VITALS: BMI 31.1
[2019-01-13 11:32] LABS: INR 1.84 (0.83-1.09); PROTHROMBIN TIME (PATIENT) 21.9 SEC (9.7-13.0)
[2019-01-13 11:34] LABS: ACTIVATED PTT 34.3 SECONDS (25.2-36.5)
--- NOTE | 2019-01-13 11:53 | PDOC ---
Attending Attestation - Resident Resident Name: Martina Cannon - ED Attending Attestation I have performed the following: I have examined & evaluated the patient, The case was reviewed & discussed with the resident, I agree w/resident's findings & plan - HPI HPI: 01/13/19 11:30 88y/o F h/o COPD and CHF, Afib with recent admission for SOB predominantly COPD exacerbation completed prednisone course now p/w several days progressive sob/ orthopnea/FRYE and chest pain with leg swelling. Seen by covering physician for Dr. Johnson and lasix increased from 40mg daily to 40+20mg daily with increased urine output but progressive SOB/leg swelling. presents now for persistent SOB. - Physicial Exam PE: 01/13/19 11:54 tachycardia, hypoxia, tachypnea alert, obese, speaking 3-4 words + crackles to mid-lung field b/l, slight wheeze at the bases irregular tachycardia abd soft/nt 2+ pitting edema b/l - Critical Care Time Total Critical Care Time: 60 Critical Care Statement: The care of this patient involved high complexity decision making to prevent further life threatening deterioration of the patient 's condition and/or to evaluate & treat vital organ system(s) failure or risk of failure. - Medical Decision Making 01/13/19 12:08 88y/o F arrived in moderate to severe acute hypoxic respiratory distress, likely CHF exacerbation +/- COPD component. placed on bipap with improved respiratory effort and saturation lasix, ekg, continue bipap nebs, restart steroids, check ABG rate control afib with rvr labs will need admission for diuresis and resp monitoring 01/13/19 12:14 cxr with congestion/pulm edema. ZAC with Cr 3.6. ABG pending. Heart Score/ECG Review #1 ECG reviewed & interpreted by me at: 10:27 Compared to previous ECG there are: No significant change 01/13/19 12:13 afib with rvr a 124. LBBB. qtc 517
[2019-01-13 11:55] LABS: ALBUMIN 3.1 g/dl (3.4-5.0); BILIRUBIN,TOTAL 0.9 mg/dL (0.2-1); CALCIUM 9.4 mg/dL (8.5-10.1); CREATININE 3.6 mg/dL (0.55-1.3); MAGNESIUM 2.2 mg/dL (1.8-2.4); N-TERMINAL BNP 6216.3 pg/ml (5-450); POTASSIUM 3.7 mmol/L (3.5-5.1); TOT PROT 6.4 g/dl (6.4-8.2)
[2019-01-13] MEDS ORDERED: dilTIAZem HCL 30 MG TABLET (FP) PO ONE (12:41)
[2019-01-13] MEDS ORDERED: dilTIAZem HCL 30 MG TABLET (FP) ONE (12:55)
[2019-01-13 12:59] LABS: ARTERIAL BLD GAS O2 SATURATION 32.1 % (95-98); ARTERIAL BLOOD GAS BASE EXCESS 4.5 meq/l (-2-2); ARTERIAL BLOOD GAS PCO2 60.1 mmHg (35-45); ARTERIAL BLOOD GAS pH 7.34 (7.35-7.45); CARBOXYHEMOGLOBIN 0.8 % (0-2)
[2019-01-13 13:02] LABS: ARTERIAL BLOOD GAS PO2 < 49 mmHg (80-100)
--- NOTE | 2019-01-13 13:41 | HP ---
CHIEF COMPLAINT: shortness of breath PCP: Dr. Franklin HISTORY OF PRESENT ILLNESS: Patient is an 88 year old female with history of COPD (on home oxygen 3L), congestive heart failure (last transthoracic echo 12/2017 reveals grossly normal LV ejection fraction, elevated RV pressure at 30-40), Afib (on Eliquis, s /p permanant pacemaker), coronary artery disease, hypertension, hyperlipidemia, chronic kidney disease (stage IV, baseline Cr approx 2.3), past stroke, presents with complaint of shortness of breath. Endorses compliance with fluid restriction, and home medications. Endorses progressive bilateral lower extremity swelling worsening over past two days. She admits orthopnea at baseline which has progressed to dyspnea sitting upright. She admits worsened exercise tolerance, becoming short of breath walking across a room at home. Endorses chronic, nonproductive cough that has not changed. Denies subjective fevers, chills, or sick contacts. ER course was notable for: (1) Chest radiograph (2) BiLevel; ABG revealing hypoxic, respiratory acidosis. (3) PAULA; Cr 3.6 (2.2 upon last discharge) Recent Travel: denies PAST MEDICAL HISTORY: COPD (on home oxygen 3L), congestive heart failure (last transthoracic echo 12/2017 reveals grossly normal LV ejection fraction, elevated RV pressure at 30-40), Afib (on Eliquis, s/p permanant pacemaker), coronary artery disease, hypertension, hyperlipidemia, chronic kidney disease ( stage IV, baseline Cr approx 2.3), past stroke, PAST SURGICAL HISTORY: permanent pacemaker placement Social History: Smoking: former smoker Alcohol: denies Drugs: denies Family History: Mother: unknown cardiac history; heart failure Allergies aspirin Allergy (Verified 12/24/18 09:29) HOME MEDICATIONS: Home Medications Medication Instructions Recorded Amlodipine Besylate [Norvasc -] 5 mg PO DAILY 05/22/17 Apixaban [Eliquis] 2.5 tab PO BID 05/22/17 Fluticasone/Salmeterol [Advair Hfa 12 gm IH DAILY 05/22/17 230-21 Mcg Inhaler] Lipase/Protease/Amylase [[place]air [place] 1 each PO Q8H 05/22/17 36,000 Units Capsule] Metoprolol Succinate 25 mg PO BID 05/22/17 Omeprazole 40 mg PO DAILY 01/17/18 Simvastatin 40 mg PO DAILY 05/22/17 Tiotropium [place] [Spiriva] 2.5 mcg IH BID 05/22/17 Furosemide 40 mg PO DAILY 12/25/18 Furosemide [Lasix -] 20 mg PO HS 01/13/19 Valsartan [Diovan] 160 mg PO DAILY 01/13/19 REVIEW OF SYSTEMS CONSTITUTIONAL: Absent: fever, chills, diaphoresis, generalized weakness, malaise, loss of appetite, weight change HEENT: Absent: rhinorrhea, nasal congestion, throat pain, throat swelling, difficulty swallowing, mouth swelling, ear pain, eye pain, visual changes CARDIOVASCULAR: Admits: peripheral edema. Absent: chest pain, syncope, palpitations, irregular heart rate, lightheadedness, peripheral edema RESPIRATORY: Admits: shortness of breaht, cough, dyspnea with exertion, orthopnea. Absent: wheezing, stridor, hemoptysis GASTROINTESTINAL: Absent: abdominal pain, abdominal distension, nausea, vomiting, diarrhea, constipation, melena, hematochezia GENITOURINARY: Absent: dysuria, frequency, urgency, hesitancy, hematuria, flank pain, genital pain MUSCULOSKELETAL: Absent: myalgia, arthralgia, joint swelling, back pain, neck pain SKIN: Absent: rash, itching, pallor HEMATOLOGIC/IMMUNOLOGIC: Absent: easy bleeding, easy bruising, lymphadenopathy, frequent infections ENDOCRINE: Absent: unexplained weight gain, unexplained weight loss, heat intolerance, cold intolerance NEUROLOGIC: Absent: headache, focal weakness or paresthesias, dizziness, unsteady gait, seizure, mental status changes, bladder or bowel incontinence PSYCHIATRIC: Absent: anxiety, depression, suicidal or homicidal ideation, hallucinations. PHYSICAL EXAMINATION Vital Signs - 24 hr 01/13/19 01/13/19 01/13/19 10:05 10:22 10:28 Temperature 97.9 F Pulse Rate 133 H 133 H Pulse Rate [ 133 H Left Radial] Respiratory 27 H 24 H Rate Blood Pressure 133/99 Blood Pressure 133/99 [Right Arm] O2 Sat by Pulse 91 L 91 L 96 Oximetry (%) 01/13/19 12:20 Temperature 97.5 F L Pulse Rate Pulse Rate [ 117 H Left Radial] Respiratory 19 Rate Blood Pressure Blood Pressure 110/82 [Right Arm] O2 Sat by Pulse Oximetry (%) GENERAL: Awake, alert, oriented, in no apparent distress. On BiLEvel ventilation. HEAD: Normocephalic, atraumatic EYES: Pupils equal, round and reactive to light, extraocular movements intact, sclera anicteric, conjunctiva clear. EARS, NOSE, THROAT: Oropharynx clear without exudates. Moist mucous membranes. NECK: Supple without lymphadenopathy or masses. LUNGS: Good inspiratory effort, with poor air entry bilaterally. Crackles auscultated bilateral lower lobes. No accessory muscle use. HEART: Irregular rate and rhythm. Normal S1 and S2 without murmur, rub or gallop. ABDOMEN: Soft, nontender to light and deep palpation, not distended. Normoactive bowel sounds. No hepatomegaly. MUSCULOSKELETAL: Normal range of motion at all joints. No bony deformities or tenderness. UPPER EXTREMITIES: 2+ radial pulses, warm, well-perfused. LOWER EXTREMITIES: 1+ dorsalis pedis pulses bilaterally, warm, well-perfused. 2 + peripheral edema up to knees. NEUROLOGICAL: Cranial nerves II-XII intact. Normal speech. Moving all four extremities equally. PSYCHIATRIC: Cooperative. Appropriate mood and affect. SKIN: Warm, dry. Laboratory Results - last 24 hr 01/13/19 01/13/19 01/13/19 10:58 10:58 10:58 WBC 10.5 H RBC 4.18 Hgb 11.5 Hct 36.1 MCV 86.4 MCH 27.4 MCHC 31.8 L RDW 17.1 H Plt Count 313 D MPV 8.3 Absolute Neuts (auto) 8.6 H Neutrophils % 81.8 Lymphocytes % 9.9 Monocytes % 5.9 Eosinophils % 1.2 Basophils % 1.2 Nucleated RBC % 0 PT with INR INR PTT (Actin FS) Cancelled Anticoagulation Therapy Puncture Site ABG pH ABG pCO2 at Pt Temp ABG pO2 at Pt Temp ABG HCO3 ABG O2 Sat (Measured) ABG O2 Content ABG Base Excess Ankit Test Carboxyhemoglobin Methemoglobin O2 Delivery Device Oxygen Flow Rate Vent Mode Vent Rate Mechanical Rate Pressure Support Vent Sodium Potassium Chloride Carbon Dioxide Anion Gap BUN Creatinine Est GFR (CKD-EPI)AfAm Est GFR (CKD-EPI)NonAf Random Glucose Calcium Magnesium Total Bilirubin AST ALT Alkaline Phosphatase Creatine Kinase 108 Troponin I 0.04 B-Natriuretic Peptide Total Protein Albumin 01/13/19 01/13/19 01/13/19 10:58 10:58 12:29 WBC RBC Hgb Hct MCV MCH MCHC RDW Plt Count MPV Absolute Neuts (auto) Neutrophils % Lymphocytes % Monocytes % Eosinophils % Basophils % Nucleated RBC % PT with INR 21.90 H INR 1.84 H PTT (Actin FS) 34.3 Anticoagulation Therapy No Result Required. Puncture Site No Result Required. ABG pH 7.34 L ABG pCO2 at Pt Temp 60.1 H ABG pO2 at Pt Temp < 49 L* ABG HCO3 31.4 H ABG O2 Sat (Measured) 32.1 L ABG O2 Content No Result Required. ABG Base Excess 4.5 H Ankit Test No Result Required. Carboxyhemoglobin 0.8 Methemoglobin < 1.0 O2 Delivery Device No Result Required. Oxygen Flow Rate No Result Required. Vent Mode No Result Required. Vent Rate No Result Required. Mechanical Rate No Result Required. Pressure Support Vent No Result Required. Sodium 141 Potassium 3.7 Chloride 97 L Carbon Dioxide 30 Anion Gap 15 BUN 81.0 H Creatinine 3.6 H Est GFR (CKD-EPI)AfAm 12.56 Est GFR (CKD-EPI)NonAf 10.83 Random Glucose 97 Calcium 9.4 Magnesium 2.2 Total Bilirubin 0.9 AST 49 H ALT 21 Alkaline Phosphatase 152 H Creatine Kinase Troponin I B-Natriuretic Peptide 6216.3 H Total Protein 6.4 Albumin 3.1 L ASSESSMENT/PLAN: Patient is an 88 year old female with history of COPD (on home oxygen 3L), congestive heart failure (last transthoracic echo 12/2017 reveals grossly normal LV ejection fraction, elevated RV pressure at 30-40), Afib (on Eliquis, s /p permanant pacemaker), coronary artery disease, hypertension, hyperlipidemia, chronic kidney disease (stage IV, baseline Cr approx 2.3), past stroke, presents with complaint of shortness of breath. Acute hypoxic, hypercapnic respiratory failure secondary to congestive heart failure exacerbation -Patient endorses worsening orthopnea, bilateral lower extremity edema -Chest radiograph reveals worsening congestive changes bilaterally. Follow up chest radiograph in morning. -ABG reveals hypoxia, respiratory acidosis (pH 7.34, PaCO2 60.1, PaO2 < 49, HCO3 31). Patient was placed on BiLevel ventilation at 10/ 5 FiO2 40%, RR 14. Will follow repeat ABG within 1 hour. -Cardiac transthoracic ECHO revealed grossly normal LV ejection fraction, moderate MR, TR, elevated RV pressure at 30-40mmhg). Follow repeat ECHO. -BNP 6216 (8304 upon prior admission last month) -Patient received Lasix 60mg IV in the ED. Reinstate Lasix 40mg IV BID -Telemetry monitoring -Monitor intake and output closely. -Daily weights. -Cardiology consult (Dr. Adrienne Gallegos) Atrial fibrillation -EKG upon admission reveals Afib with RVR at 124 BPM, with LBBB (seen on prior ECG) -Rate control with Diltiazem Cd 120mg PO daily, Metoprlol 50mg PO BID -Eliquis 2.5mg PO BID -Telemetry monitoring Acute on chronic CKD (stage IV) -BUN 81/ Cr 3.6 -Patient had recent renal ultrasound which was unrevealing -Will obtain UA, urine sodium ,creatinine -Follow urine output Hypertension -Diltiazem Cd 120mg PO daily -Metoprlol 50mg PO BID Hyperlipidemia -Atorvastatin 20mg PO HS Diabetes mellitus -Insulin sliding scale ACHS -Fingerstick bloodglucose monitoring ACHS FEN -No IV fluids indicated -Follow BMP, replete as indicated -Sodium controlled diet, renal modification Prophylaxis -Eliquis 2.5mg PO BID Disposition -Admit to Telemetry floor Visit type - Emergency Visit Emergency Visit: Yes ED Registration Date: 01/13/19 Care time: The patient presented to the Emergency Department on the above date and was hospitalized for further evaluation of their emergent condition. - New Patient This patient is new to me today: No - Critical Care Critical Care patient: No ATTENDING PHYSICIAN STATEMENT I saw and evaluated the patient. I reviewed the resident's note and discussed the case with the resident. I agree with the resident's findings and plan as documented. SUBJECTIVE: OBJECTIVE: ASSESSMENT AND PLAN:
[2019-01-13] MEDS ORDERED: amLODIPine BESYLATE 5 MG TABLET (FP) PO SCH (14:00)
[2019-01-13] MEDS ORDERED: PATIENT'S OWN MEDICATION (NON-FORMULARY) (Fluticasone/Salmeterol [Advair Hfa 230-21 Mcg In IH SCH (14:00)
[2019-01-13] MEDS ORDERED: FUROSEMIDE 40 MG/4 ML INJECTABLE VIAL IVPUSH SCH ×2 (14:15→20:00)
--- NOTE | 2019-01-13 14:40 | EKG ---
Test Reason : Blood Pressure : / mmHG Vent. Rate : 124 BPM Atrial Rate : 136 BPM P-R Int : 000 ms QRS Dur : 132 ms QT Int : 360 ms P-R-T Axes : 000 009 177 degrees QTc Int : 517 ms POOR DATA QUALITY, INTERPRETATION MAY BE ADVERSELY AFFECTED ATRIAL FIBRILLATION WITH RAPID VENTRICULAR RESPONSE LEFT BUNDLE BRANCH BLOCK ABNORMAL ECG WHEN COMPARED WITH ECG OF 24-DEC-2018 09:27, ATRIAL FIBRILLATION HAS REPLACED ELECTRONIC VENTRICULAR PACEMAKER Confirmed by Melvin Lancaster MD ([id number]) on 01/13/2019 2:39:35 PM Referred By: Confirmed By:Melvin Lancaster MD
[2019-01-13 14:46] LABS: ARTERIAL BLD GAS O2 SATURATION 97.1 % (95-98); ARTERIAL BLOOD GAS BASE EXCESS 3.5 meq/l (-2-2); ARTERIAL BLOOD GAS PCO2 47.2 mmHg (35-45); ARTERIAL BLOOD GAS PO2 99.2 mmHg (80-100)
[2019-01-13 14:47] LABS: ALLENS TEST POSITIVE
[2019-01-13] MEDS ORDERED: amLODIPine BESYLATE 5 MG TABLET (FP) ONE (14:58)
[2019-01-13] MEDS: FUROSEMIDE 40 MG/4 ML INJECTABLE VIAL IVPUSH SCH (16:45)
--- NOTE | 2019-01-13 18:53 | PN ---
Teaching Attending Note Name of Resident: Heri Sampson ATTENDING PHYSICIAN STATEMENT I saw and evaluated the patient. I reviewed the resident's note and discussed the case with the resident. I agree with the resident's findings and plan as documented. SUBJECTIVE: Feeling better, less SOB. No CP/palpitations/fever/chills. OBJECTIVE: Afebrile, Hemodynamically Stable. Comfortable on BiPAP. Last Vital Signs Temp Pulse Resp BP Pulse Ox 97.6 F 109 H 19 109/86 95 01/13/19 14:35 01/13/19 14:35 01/13/19 14:35 01/13/19 14:35 01/13/19 14:35 HEENT - Atramatic, using BiPAP Heart - S1, S2, RRR Lungs - decreased air entry bilaterally, no wheeze. Abdomen - mild distension, non-tender. Bowel sounds normal. Extremities - Pitting edema ++. No calf tenderness. Neuro - AAO x 3. Tone/Power normal all 4 extremities. Laboratory Results - last 24 hr 01/13/19 01/13/19 01/13/19 10:58 10:58 10:58 WBC 10.5 H RBC 4.18 Hgb 11.5 Hct 36.1 MCV 86.4 MCH 27.4 MCHC 31.8 L RDW 17.1 H Plt Count 313 D MPV 8.3 Absolute Neuts (auto) 8.6 H Neutrophils % 81.8 Lymphocytes % 9.9 Monocytes % 5.9 Eosinophils % 1.2 Basophils % 1.2 Nucleated RBC % 0 PT with INR INR PTT (Actin FS) Cancelled Anticoagulation Therapy Puncture Site ABG pH ABG pCO2 at Pt Temp ABG pO2 at Pt Temp ABG HCO3 ABG O2 Sat (Measured) ABG O2 Content ABG Base Excess Ankit Test Carboxyhemoglobin Methemoglobin O2 Delivery Device Oxygen Flow Rate Vent Mode Vent Rate Mechanical Rate Pressure Support Vent Sodium Potassium Chloride Carbon Dioxide Anion Gap BUN Creatinine Est GFR (CKD-EPI)AfAm Est GFR (CKD-EPI)NonAf Random Glucose Calcium Magnesium Total Bilirubin AST ALT Alkaline Phosphatase Creatine Kinase 108 Troponin I 0.04 B-Natriuretic Peptide Total Protein Albumin 01/13/19 01/13/19 01/13/19 10:58 10:58 12:29 WBC RBC Hgb Hct MCV MCH MCHC RDW Plt Count MPV Absolute Neuts (auto) Neutrophils % Lymphocytes % Monocytes % Eosinophils % Basophils % Nucleated RBC % PT with INR 21.90 H INR 1.84 H PTT (Actin FS) 34.3 Anticoagulation Therapy No Result Required. Puncture Site No Result Required. ABG pH 7.34 L ABG pCO2 at Pt Temp 60.1 H ABG pO2 at Pt Temp < 49 L* ABG HCO3 31.4 H ABG O2 Sat (Measured) 32.1 L ABG O2 Content No Result Required. ABG Base Excess 4.5 H Ankit Test No Result Required. Carboxyhemoglobin 0.8 Methemoglobin < 1.0 O2 Delivery Device No Result Required. Oxygen Flow Rate No Result Required. Vent Mode No Result Required. Vent Rate No Result Required. Mechanical Rate No Result Required. Pressure Support Vent No Result Required. Sodium 141 Potassium 3.7 Chloride 97 L Carbon Dioxide 30 Anion Gap 15 BUN 81.0 H Creatinine 3.6 H Est GFR (CKD-EPI)AfAm 12.56 Est GFR (CKD-EPI)NonAf 10.83 Random Glucose 97 Calcium 9.4 Magnesium 2.2 Total Bilirubin 0.9 AST 49 H ALT 21 Alkaline Phosphatase 152 H Creatine Kinase Troponin I B-Natriuretic Peptide 6216.3 H Total Protein 6.4 Albumin 3.1 L 01/13/19 14:22 WBC RBC Hgb Hct MCV MCH MCHC RDW Plt Count MPV Absolute Neuts (auto) Neutrophils % Lymphocytes % Monocytes % Eosinophils % Basophils % Nucleated RBC % PT with INR INR PTT (Actin FS) Anticoagulation Therapy No Result Required. Puncture Site Right radial ABG pH 7.40 ABG pCO2 at Pt Temp 47.2 H ABG pO2 at Pt Temp 99.2 ABG HCO3 28.4 H ABG O2 Sat (Measured) 97.1 ABG O2 Content 16.0 ABG Base Excess 3.5 H Ankit Test Positive Carboxyhemoglobin 1.0 Methemoglobin < 1.0 O2 Delivery Device No Result Required. Oxygen Flow Rate No Vent Mode No Result Required. Vent Rate No Result Required. Mechanical Rate No Result Required. Pressure Support Vent No Result Required. Sodium Potassium Chloride Carbon Dioxide Anion Gap BUN Creatinine Est GFR (CKD-EPI)AfAm Est GFR (CKD-EPI)NonAf Random Glucose Calcium Magnesium Total Bilirubin AST ALT Alkaline Phosphatase Creatine Kinase Troponin I B-Natriuretic Peptide Total Protein Albumin Current Medications Generic Name Dose Route Start Last Admin Trade Name Freq PRN Reason Stop Dose Admin Amlodipine Besylate 5 mg 01/13/19 14:00 01/13/19 15:00 Norvasc - PO 5 mg DAILY [facility] Administration Apixaban 2.25 mg 01/13/19 22:00 Eliquis - PO BID [facility] Atorvastatin Calcium 20 mg 01/13/19 22:00 Lipitor - PO HS [facility] Diltiazem HCl 120 mg 01/14/19 10:00 Cardizem Cd - PO DAILY KESHAWN Furosemide 40 mg 01/13/19 15:45 01/13/19 16:45 Lasix Injection - IVPUSH 40 mg BIDLASIX KESHAWN Administration Metoprolol Succinate 50 mg 01/13/19 22:00 Toprol Xl - PO BID [facility] Non-Formulary Medication 12 gm 01/13/19 14:00 Fluticasone/Salmeterol [Advair Hfa 230-21 Mcg Inhaler] IH DAILY [facility] Pantoprazole Sodium 40 mg 01/14/19 10:00 Protonix - PO DAILY [facility] Tiotropium [place] 2 puff 01/14/19 10:00 Spiriva Respimat IH DAILY [facility] Home Medications Medication Instructions Recorded Amlodipine Besylate [Norvasc -] 5 mg PO DAILY 05/22/17 Apixaban [Eliquis] 2.5 tab PO BID 05/22/17 Fluticasone/Salmeterol [Advair Hfa 12 gm IH DAILY 05/22/17 230-21 Mcg Inhaler] Lipase/Protease/Amylase [Creon Dr 1 each PO Q8H 05/22/17 36,000 Units Capsule] Metoprolol Succinate 25 mg PO BID 05/22/17 Omeprazole 40 mg PO DAILY 05/22/17 Simvastatin 40 mg PO DAILY 05/22/17 Tiotropium [place] [Spiriva] 2.5 mcg IH BID 05/22/17 Furosemide 40 mg PO DAILY 12/25/18 Furosemide [Lasix -] 20 mg PO HS 01/13/19 Valsartan [Diovan] 160 mg PO DAILY 01/13/19 ASSESSMENT AND PLAN: 88 year old female with history of CRF on COPD (on home oxygen, 3L), chronic diastolic heart failure, Atrial fibrillation (on Eliquis, s/p PPM), coronary artery disease, hypertension, hyperlipidemia, CKD 4, Hx CVA, presents with shortness of breath worse on exertion, with associated cough. No sputum/ hemoptysis. 1. Acute Hypoxic/Hypercapneic Respiratory Failure secondary to acute diastolic CHF decompensation Pitting edema. CXR - worsening congestive changes Elevated BNP Improving with IV Lasix and BiPAP - Continue. Telemonitoring, I/Os, daily weights. Cardiology consult. 2. Atrial fibrillation with RVR Received IV cardizem in ED. Continue Diltiazem, Metoprolol Continue Eliquis. 3. PAULA on CKD 3/4 ? sec to cardiorenal syndrome UA, urine lytes Will request Nephrology consult if no improvement after IV Lasix. ARB held. 4. HTN - Continue Diltiazem, Metoprolol. Valsartan held. Need to clarify home med: Norvasc vs Diltiazem. 5. HLD -Continue Atorvastatin 6. CRF sec to COPD/Pulmonary HTN - on Home O2. Appears not to be in COPD exacerbation. Continue Bronchodilator Nebs, Spiriva. Received IV Solumedrol in ED, will hold further steroid for now. DVT Px - on Eliquis.
[2019-01-13] MEDS ORDERED: APIXABAN 2.5 MG TABLET PO SCH ×3 (22:00→22:36)
[2019-01-13] MEDS ORDERED: metoPROLOL SUCCINATE 25 MG TAB.SR.24H (FP) PO SCH (22:00)
[2019-01-13] MEDS: ATORVASTATIN CA 20 MG TABLET (FP) PO SCH (22:33)
[2019-01-13] MEDS: metoPROLOL SUCCINATE 25 MG TAB.SR.24H (FP) PO SCH (22:34)
[2019-01-13] MEDS: APIXABAN 2.5 MG TABLET PO SCH (22:40)
[2019-01-14] MEDS ORDERED: MELATONIN 5 MG TABLETS PO ONE ×2 (05:03→23:13)
[2019-01-14 06:25] LABS: HEMATOCRIT 33.5 % (32.4-45.2); HEMOGLOBIN 10.5 GM/dL (10.7-15.3); MCH 27.4 pg (25.7-33.7); MCHC 31.5 g/dl (32.0-36.0); MEAN CELL VOLUME 86.9 fl (80-96); MEAN PLT VOLUME 8.6 fl (7.5-11.1); PLATELET COUNT 317 K/MM3 (134-434); RBC 3.85 M/mm3 (3.60-5.2); RDW 16.9 % (11.6-15.6)
[2019-01-14] MEDS: FUROSEMIDE 40 MG/4 ML INJECTABLE VIAL IVPUSH SCH (06:29)
[2019-01-14 06:59] LABS: ALBUMIN 2.9 g/dl (3.4-5.0); BLOOD UREA NITROGEN 99.7 mg/dL (7-18); CALCIUM 9.8 mg/dL (8.5-10.1); CREATININE 4.3 mg/dL (0.55-1.3); MAGNESIUM 2.4 mg/dL (1.8-2.4); PHOSPHOROUS 8.5 mg/dL (2.5-4.9); POTASSIUM 4.2 mmol/L (3.5-5.1); TOT PROT 6.2 g/dl (6.4-8.2)
--- NOTE | 2019-01-14 09:50 | CON.CARD ---
Consult Consult Specialty:: Cardiology Referred by:: Hospitalist Medicine Reason for Consultation:: Dyspnea, rapid afib, volume overload - History of Present Illness Chief Complaint: Dyspnea, LE edema History of Present Illness: The patient is an 88 year old icelandic speaking female, with a significant PMH of COPD (3-4L home O2) with h/o flares, asthma, CVA, gastritis, paroxysmal afib (eliquis, s/p pacemaker), CAD, WI, HTN, HLD, and diastolic CHF, CKD who presented to the emergency department for evaluation of SOB, rapid afib, orthopnea, FRYE, chest tightness and LE edema despite uptitration of oral diuretics. Symptoms improving with IV diuresis and rate-control of afib. 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 No: Sleep Apnea Gastrointestinal: Yes: GERD Renal/: Yes: Renal Inusuff ...: No - Alcohol/Substance Use Hx Alcohol Use: No - Smoking History Smoking history: Unknown if ever smoked Have you smoked in the past 12 months: No Aproximately how many cigarettes per day: 0 If you are a former smoker, when did you quit?: 1994 Home Medications - Allergies Allergies/Adverse Reactions: Allergies Allergy/AdvReac Type Severity Reaction Status Date / Time aspirin Allergy Verified 12/24/18 09:29 - Home Medications Home Medications: Ambulatory Orders Amlodipine Besylate [Norvasc -] 5 mg PO DAILY 05/22/17 Apixaban [Eliquis] 2.5 tab PO BID 05/22/17 Fluticasone/Salmeterol [Advair Hfa 230-21 Mcg Inhaler] 12 gm IH DAILY 05/22/17 Lipase/Protease/Amylase [Clair Mcgee 36,000 Units Capsule] 1 each PO Q8H 05/22/17 Metoprolol Succinate 25 mg PO BID 05/22/17 Omeprazole 40 mg PO DAILY 05/22/17 Simvastatin 40 mg PO DAILY 05/22/17 Tiotropium [place] [Spiriva] 2.5 mcg IH BID 05/22/17 Furosemide 40 mg PO DAILY 12/25/18 Furosemide [Lasix -] 20 mg PO HS 01/13/19 Valsartan [Diovan] 160 mg PO DAILY 01/13/19 Review of Systems - Review of Systems Cardiovascular: reports: Edema, Shortness of Breath Respiratory: reports: Orthopnea, SOB, SOB on Exertion Vital Signs: Vital Signs Temperature 97.6 F 01/14/19 06:00 Pulse Rate 99 H 01/14/19 06:00 Respiratory Rate 20 01/14/19 06:00 Blood Pressure 110/64 01/14/19 06:00 O2 Sat by Pulse Oximetry (%) 94 L 01/14/19 00:39 Constitutional: Yes: No Distress, Calm Neck: Yes: Supple Respiratory: Yes: Regular, Diminished, On Nasal O2 Gastrointestinal: Yes: Normal Bowel Sounds, Soft, Abdomen, Obese Cardiovascular: Yes: Tachycardia, Pulse Irregular JVD: No Carotid Bruit: No Heart Sounds: Yes: S1, S2 Murmur: Yes: Systolic Murmur, Grade 1 Edema: Yes Edema: LLE: 2+, RLE: 2+ - Other Data Labs, Other Data: CBC, BMP 01/14/19 05:30 01/14/19 05:30 INR, PTT INR 1.84 (0.83-1.09) H 01/13/19 10:58 Troponin, BNP 01/13/19 01/13/19 01/13/19 10:58 10:58 18:45 Troponin I 0.04 0.03 B-Natriuretic Peptide 6216.3 H Troponin, BNP 01/13/19 01/13/19 01/13/19 10:58 10:58 18:45 Troponin I 0.04 0.03 B-Natriuretic Peptide 6216.3 H Rapid afib @ 124 LBBB Ejection Fraction %: LVEF > or = 40 % Imaging - Results Chest X-ray: Report Reviewed ([place] effusions R>L, CHF) Problem List - Problems (1) Shwnc-up-uyiqwoi kidney injury Code(s): N17.9 - ACUTE KIDNEY FAILURE, UNSPECIFIED; N18.9 - CHRONIC KIDNEY DISEASE, UNSPECIFIED Qualifiers: Chronic kidney disease stage: stage 4 (severe) (2) Acute on chronic diastolic CHF (congestive heart failure) Code(s): I50.33 - ACUTE ON CHRONIC DIASTOLIC (CONGESTIVE) HEART FAILURE (3) Acute on chronic respiratory failure with hypoxia and hypercapnia Code(s): J96.21 - ACUTE AND CHRONIC RESPIRATORY FAILURE WITH HYPOXIA; J96.22 - ACUTE AND CHRONIC RESPIRATORY FAILURE WITH HYPERCAPNIA (4) Atrial fibrillation with rapid ventricular response Code(s): I48.91 - UNSPECIFIED ATRIAL FIBRILLATION (5) Chronic anticoagulation Code(s): Z79.01 - CARE HOME (CURRENT) USE OF ANTICOAGULANTS (6) FRYE (dyspnea on exertion) Code(s): R06.09 - OTHER FORMS OF DYSPNEA (7) Hyperlipidemia Code(s): E78.5 - HYPERLIPIDEMIA, UNSPECIFIED Qualifiers: Hyperlipidemia type: pure hypercholesterolemia Qualified Code(s): E78.00 - Pure hypercholesterolemia, unspecified; E78.0 - Pure hypercholesterolemia (8) Pulmonary HTN Code(s): I27.20 - PULMONARY HYPERTENSION, UNSPECIFIED (9) Sleep apnea Code(s): G47.30 - SLEEP APNEA, UNSPECIFIED Assessment/Plan 12/25/2018 Echo: Normal LV and RV size and fxn, mod MR, TR RVSP 30-40 mmHg, mild 12/31/2018 Normal renal US 11/03/2018 Echo: Normal LV size and fxn LVEF 55-60%, grade II DD, mild-mod TR RVSP 44 mmHg, mild-mod MG 12 mmHg 11/03/[address]: Emphysema, ILD, pulm HTN 08/16/2015 Echo: Normal LV size with mild cLVH, mod-severe decreased LVEF, mod TR , mild MR, PA 03/09/2015 P=Myoview: No ischemia, LVEF 51% 1. Acute on chronic hypercapneic, hypoxemic respiratory failure referable to 2. Acute on chronic LV diastolic failure with h/o resolved cardiomyopathy in context of 3. Paroxysmal atrial fibrillation with rapid ventricular response [id number] score of 7-8 now on NOAC 4. 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 CAD negative MPI study for myocardial ischemia 03/09/2015 6. CLBBBB 7. HTN 8. Hypercholesterolemia 9. History of CVA 10. Acute on CKD due to hemodynamic alterations PLAN: 1. IV diuresis with monitor diuretic response, renal fxn and electrolytes 2. Continue metoprolol 50 bid and Cardizem CD 120 qd with IV Cardizem or Lopressor as needed for rate-control, continue Lipitor 20 qhs and Eliquis 2.5 bid, resume Diovan as hemodynamics tolerate once renal fxn at baseline 3. BD, O2, Bipap as needed, observe off steroids and abx 4. Counselled on diet and medication compliance 5. Thank you for consultative opportunity
[2019-01-14] MEDS: PANTOPRAZOLE 40 MG TABLET (FP) PO SCH (09:52)
[2019-01-14] MEDS: APIXABAN 2.5 MG TABLET PO SCH ×2 (09:52→22:50)
[2019-01-14] MEDS: metoPROLOL SUCCINATE 25 MG TAB.SR.24H (FP) PO SCH ×2 (10:00→22:50)
[2019-01-14] MEDS: TIOTROPIUM BROMIDE 2.5 MCG (SPIRIVA) RESPIMAT INHALER IH SCH (10:00)
--- NOTE | 2019-01-14 12:49 | CONSULT ---
Consult Consult Specialty:: Nephrology Reason for Consultation:: PAULA - History of Present Illness Chief Complaint: shortness of breath History of Present Illness: Pt is an 88 year old female with pmhx of ckd, copd on 3 l o2, chf, asthma, cva, a-fib and cad who presented with shortness of breath. She was found to have fluid overload and admitted to the hospital. She was recently discharged on a higher dose of lasix. It is unclear how much she was actually taking. She denies dysuria or hematuria. - History Source History Provided By: Patient, Medical Record - Past Medical History SIFTER AND MILLER: Yes: CVA Cardio/Vascular: Yes: AFIB, CAD, CHF Pulmonary: Yes: COPD, O2 Dependent, Pneumonia. No: Sleep Apnea Gastrointestinal: Yes: GERD Renal/: Yes: Renal Inusuff ...: No - Alcohol/Substance Use Hx Alcohol Use: No - Smoking History Smoking history: Unknown if ever smoked Have you smoked in the past 12 months: No Aproximately how many cigarettes per day: 0 If you are a former smoker, when did you quit?: 1994 Home Medications - Allergies Allergies/Adverse Reactions: Allergies Allergy/AdvReac Type Severity Reaction Status Date / Time aspirin Allergy Verified 12/24/18 09:29 - Home Medications Home Medications: Ambulatory Orders Amlodipine Besylate [Norvasc -] 5 mg PO DAILY 05/22/17 Apixaban [Eliquis] 2.5 tab PO BID 05/22/17 Fluticasone/Salmeterol [Advair Hfa 230-21 Mcg Inhaler] 12 gm IH DAILY 05/22/17 Lipase/Protease/Amylase [Clair Mcgee 36,000 Units Capsule] 1 each PO Q8H 05/22/17 Metoprolol Succinate 25 mg PO BID 05/22/17 Omeprazole 40 mg PO DAILY 05/22/17 Simvastatin 40 mg PO DAILY 05/22/17 Tiotropium [place] [Spiriva] 2.5 mcg IH BID 05/22/17 Furosemide 40 mg PO DAILY 12/25/18 Furosemide [Lasix -] 20 mg PO HS 01/13/19 Valsartan [Diovan] 160 mg PO DAILY 01/13/19 Family Disease History - Family Disease History Family History: Denies Review of Systems - Review of Systems Constitutional: reports: Malaise Eyes: reports: No Symptoms HENT: reports: No Symptoms Neck: reports: No Symptoms Cardiovascular: reports: Edema, Shortness of Breath Respiratory: reports: SOB, SOB on Exertion Gastrointestinal: reports: No Symptoms Genitourinary: reports: No Symptoms Musculoskeletal: reports: No Symptoms Neurological: reports: No Symptoms Endocrine: reports: No Symptoms Hematology/Lymphatic: reports: No Symptoms Physical Exam Vital Signs: Vital Signs Temperature 97.5 F L 01/14/19 10:00 Pulse Rate 109 H 01/14/19 10:00 Respiratory Rate 22 H 01/14/19 10:00 Blood Pressure 95/77 01/14/19 10:00 O2 Sat by Pulse Oximetry (%) 94 L 01/14/19 00:39 Constitutional: Yes: Calm Eyes: Yes: Conjunctiva Clear HENT: Yes: Atraumatic Cardiovascular: Yes: S1, S2 Respiratory: Yes: On Nasal O2, Rhonchi Gastrointestinal: Yes: Soft, Abdomen, Obese Renal/: Yes: WNL Musculoskeletal: Yes: WNL Edema: Yes Edema: LLE: 2+, RLE: 2+ Neurological: Yes: Oriented Psychiatric: Yes: Oriented Labs: CBC, BMP 01/14/19 05:30 01/14/19 05:30 Laboratory Tests 12/30/18 12/31/18 01/13/19 06:48 05:35 10:58 Creatinine 2.6 H 2.2 H 3.6 H 01/14/19 05:30 Creatinine 4.3 H Imaging - Results Chest X-ray: Report Reviewed Problem List - Problems (1) Mliof-ef-[id number] kidney injury Code(s): N17.9 - ACUTE KIDNEY FAILURE, UNSPECIFIED; N18.9 - CHRONIC KIDNEY DISEASE, UNSPECIFIED Qualifiers: Chronic kidney disease stage: stage 4 (severe) (2) CHF exacerbation Code(s): I50.9 - HEART FAILURE, UNSPECIFIED Qualifiers: Heart failure type: unspecified Qualified Code(s): I50.9 - Heart failure, unspecified (3) COPD exacerbation Code(s): J44.1 - CHRONIC OBSTRUCTIVE PULMONARY DISEASE W (ACUTE) EXACERBATION Assessment/Plan Current Medications Generic Name Dose Route Start Last Admin Trade Name Freq PRN Reason Stop Dose Admin Apixaban 2.5 mg 01/13/19 22:00 01/14/19 09:52 Eliquis - PO 2.5 mg BID [facility] Administration Atorvastatin Calcium 20 mg 01/13/19 22:00 01/13/19 22:33 Lipitor - PO 20 mg HS [facility]WN Administration Diltiazem HCl 120 mg 01/14/19 10:00 01/14/19 09:52 Cardizem Cd - PO 120 mg DAILY [facility] Administration Furosemide 40 mg 01/13/19 15:45 01/14/19 06:29 Lasix Injection - IVPUSH 40 mg BIDLASIX [facility]WN Administration Metoprolol Succinate 50 mg 01/13/19 22:00 01/13/19 22:34 Toprol Xl - PO 50 mg BID [facility] Administration Non-Formulary Medication 12 gm 01/13/19 14:00 Fluticasone/Salmeterol [Advair Hfa 230-21 Mcg Inhaler] IH DAILY [facility] Pantoprazole Sodium 40 mg 01/14/19 10:00 01/14/19 09:52 Protonix - PO 40 mg DAILY [facility] Administration Tiotropium [place] 2 puff 01/14/19 10:00 Spiriva Respimat IH DAILY [facility]ES[facility]WN Impression 1. CKD 2. PAULA 3. COPD 4. asthma 5. dyspnea 6. HTN 7. a-fib 8. CHF 9. CAD Plan - cont lasix - place contreras - renal function is worsening however she is overloaded - monitor lytes - discussed with medical team - check renal ultrasound - repeat ua and lytes - avoid nsaids
--- NOTE | 2019-01-14 13:08 | PN ---
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 Pt seen at bedside today, with daughter Adelaida ("Martha" [phone]). Pt SOB improved. C/o epigastric pain that is sharp, intermittent, nonradiatin. Pt given protonix. Stat Trop, EKG, and lipase ordered. OBJECTIVE: Vital Signs Period Temp Pulse Resp BP Sys/Perez Pulse Ox Last 24 Hr 97.5 F-97.6 F 85-110 19-25 95-120/57-88 94-100 GENERAL: The patient is awake, alert, and fully oriented, on bipap, in no acute distress. Speaking Macedonian only. HEAD: NCAT EYES: ZAHRAA, EOMI, conjunctiva clear. No ptosis. Wearing corrective lenses. ENT: Ears normal, nares patent, oropharynx clear without exudates, moist mucous membranes. On NC 3L. NECK: Trachea midline, full range of motion, supple. LUNGS: Decreased air entry on RIGHT lower lobe. Clear to auscultation elsewhere. No wheezes, no crackles, no accessory muscle use. HEART: Irregular, S1, S2 without murmur, rub or gallop. ABDOMEN: Obese, soft, nontender, nondistended, normoactive bowel sounds, no guarding, no rebound, no hepatosplenomegaly, no masses. EXTREMITIES: 1+ pitting edema in LE BL. 2+ pulses irregular, warm, well- perfused NEUROLOGICAL: Cranial nerves II through XII grossly intact. Normal speech, gait not observed. PSYCH: Normal mood, normal affect. SKIN: Warm, dry, normal turgor, no rashes or lesions noted Laboratory Results - last 24 hr 01/13/19 01/13/19 01/13/19 14:22 18:45 19:00 WBC RBC Hgb Hct MCV MCH MCHC RDW Plt Count MPV Anticoagulation Therapy No Result Required. Puncture Site Right radial ABG pH 7.40 ABG pCO2 at Pt Temp 47.2 H ABG pO2 at Pt Temp 99.2 ABG HCO3 28.4 H ABG O2 Sat (Measured) 97.1 ABG O2 Content 16.0 ABG Base Excess 3.5 H Ankit Test Positive Carboxyhemoglobin 1.0 Methemoglobin < 1.0 O2 Delivery Device No Result Required. Oxygen Flow Rate No Vent Mode No Result Required. Vent Rate No Result Required. Mechanical Rate No Result Required. Pressure Support Vent No Result Required. Sodium Potassium Chloride Carbon Dioxide Anion Gap BUN Creatinine Est GFR (CKD-EPI)AfAm Est GFR (CKD-EPI)NonAf POC Glucometer 129 Random Glucose Calcium Phosphorus Magnesium Total Bilirubin AST ALT Alkaline Phosphatase Troponin I 0.03 Total Protein Albumin 01/13/19 01/14/19 01/14/19 21:40 05:30 05:30 WBC 4.0 RBC 3.85 Hgb 10.5 L Hct 33.5 MCV 86.9 MCH 27.4 MCHC 31.5 L RDW 16.9 H Plt Count 317 MPV 8.6 Anticoagulation Therapy Puncture Site ABG pH ABG pCO2 at Pt Temp ABG pO2 at Pt Temp ABG HCO3 ABG O2 Sat (Measured) ABG O2 Content ABG Base Excess Ankit Test Carboxyhemoglobin Methemoglobin O2 Delivery Device Oxygen Flow Rate Vent Mode Vent Rate Mechanical Rate Pressure Support Vent Sodium 137 Potassium 4.2 Chloride 95 L Carbon Dioxide 29 Anion Gap 13 BUN 99.7 H Creatinine 4.3 H Est GFR (CKD-EPI)AfAm 10.13 Est GFR (CKD-EPI)NonAf 8.74 POC Glucometer 150 Random Glucose 155 H Calcium 9.8 Phosphorus 8.5 H Magnesium 2.4 Total Bilirubin 1.0 AST 41 H ALT 20 Alkaline Phosphatase 139 H Troponin I Total Protein 6.2 L Albumin 2.9 L Active Medications Acetaminophen (Tylenol -) 650 mg PO Q6H PRN PRN Reason: PAIN LEVEL 1-5 Albuterol Sulfate (Ventolin 0.083% Nebulizer Soln -) 1 amp NEB Q4H PRN PRN Reason: SHORT OF BREATH/WHEEZING Apixaban (Eliquis -) 2.5 mg PO BID [facility] Last Admin: 01/14/19 22:50 Dose: 2.5 mg Atorvastatin Calcium (Lipitor -) 20 mg PO HS [facility] Last Admin: 01/14/19 22:50 Dose: 20 mg Diltiazem HCl (Cardizem Cd -) 120 mg PO DAILY [facility] Last Admin: 01/14/19 09:52 Dose: 120 mg Furosemide (Lasix Injection -) 40 mg IVPUSH BIDLASIX [facility] Last Admin: 01/14/19 06:29 Dose: 40 mg Metoprolol Succinate (Toprol Xl -) 50 mg PO BID [facility] Last Admin: 01/14/19 22:50 Dose: 50 mg Non-Formulary Medication (Fluticasone/Salmeterol [Advair Hfa 230-21 Mcg Inhaler] ) 12 gm IH DAILY [facility] Pantoprazole Sodium (Protonix -) 40 mg PO DAILY [facility] Last Admin: 01/14/19 09:52 Dose: 40 mg Tiotropium [place] (Spiriva Respimat) 2 puff IH DAILY [facility] Last Admin: 01/14/19 10:00 Dose: Not Given ASSESSMENT/PLAN: 88 year old female with history of CRF on COPD (on home oxygen, 3L), chronic diastolic heart failure, Atrial fibrillation (on Eliquis, s/p PPM), coronary artery disease, hypertension, Chronic LBBB, hyperlipidemia, CKD 4, and Hx CVA, whom presents with shortness of breath worse on exertion, with associated cough. No sputum/hemoptysis. # Acute Hypoxic/Hypercapneic Respiratory Failure 2/2 acute diastolic CHF decompensation due to non-compliance with prescribed Lasix. - Pt reports taking previous home dose of 20 mg Lasix instead of 40mg - Pitting edema - CXR - worsening congestive changes - Elevated BNP - Improved with BiPAP, now comfortable on NC - Continue IV Lasix. - Telemonitoring, I/Os, daily weights. - Cardiology consulted # Atrial fibrillation with RVR - Continue Diltiazem, Metoprolol - Continue Eliquis. # PAULA on CKD 3/CKD 4 - MOst likely 2/2 cardiorenal syndrome - Worsening Cr - US Bladder/Kidneys requested. - Continue IV lasix diuresis. I/Os. - ARB held. - Nephrology consulted > Cont.lasix > Goldstein > Monitor electrolytes > Renal US > Repeat UA > Avoid NSAIDs # HTN - Continue Diltiazem, Metoprolol. - Valsartan held. # HLD - Cont atorvastatin # DM - ISS Novolog # Chronic Respiratory Failure 2/2 COPD/Pulmonary HTN - On Home O2. - Current presentation appears not to be in COPD exacerbation - Cont. bronchodilator nebs, Spiriva. - Received IV Solumedrol in ED, will hold further steroid for now. # F/E/N - No standing fluids - Cont. to monitor electrolytes - Low sodium/diabetic diet # DVT prophylaxis - on Eliquis. Jorge Marshall MD Visit type - Emergency Visit Emergency Visit: No - New Patient This patient is new to me today: No - Critical Care Critical Care patient: No - Discharge Referral Referred to [facility] No ATTENDING PHYSICIAN STATEMENT I saw and evaluated the patient. I reviewed the resident's note and discussed the case with the resident. I agree with the resident's findings and plan as documented. SUBJECTIVE: OBJECTIVE: ASSESSMENT AND PLAN:
[2019-01-14] MEDS ORDERED: FAMOTIDINE 20 MG/50 ML IVPB 20 MG/50 ML MG IVPB ONE (13:10)
[2019-01-14] MEDS ORDERED: PANTOPRAZOLE SODIUM 40 MG VIAL IVPUSH ONE (16:31)
--- NOTE | 2019-01-14 17:43 | PN ---
Teaching Attending Note Name of Resident: Jorge Marshall ATTENDING PHYSICIAN STATEMENT I saw and evaluated the patient. I reviewed the resident's note and discussed the case with the resident. I agree with the resident's findings and plan as documented. SUBJECTIVE: Feeling better, less SOB. No CP/palpitations/fever/chills. Complains of intermittent epigastric discomfort. OBJECTIVE: Afebrile, Hemodynamically Stable. Comfortable on 4L O2. Last Vital Signs Temp Pulse Resp BP Pulse Ox 97.9 F 67 20 143/55 L 94 L 01/14/19 14:23 01/14/19 14:23 01/14/19 14:23 01/14/19 14:23 01/14/19 00:39 Heart - S1, S2, RRR Lungs - decreased air entry bilaterally, wit bibasal crackles. Abdomen - mild distension. Bowel sounds normal. Extremities - Pitting edema ++. No calf tenderness. Neuro - AAO x 3. Tone/Power normal all 4 extremities. Laboratory Results - last 24 hr 01/13/19 01/13/19 01/13/19 18:45 19:00 21:40 WBC RBC Hgb Hct MCV MCH MCHC RDW Plt Count MPV Sodium Potassium Chloride Carbon Dioxide Anion Gap BUN Creatinine Est GFR (CKD-EPI)AfAm Est GFR (CKD-EPI)NonAf POC Glucometer 129 150 Random Glucose Calcium Phosphorus Magnesium Total Bilirubin AST ALT Alkaline Phosphatase Troponin I 0.03 Total Protein Albumin 01/14/19 01/14/19 05:30 05:30 WBC 4.0 RBC 3.85 Hgb 10.5 L Hct 33.5 MCV 86.9 MCH 27.4 MCHC 31.5 L RDW 16.9 H Plt Count 317 MPV 8.6 Sodium 137 Potassium 4.2 Chloride 95 L Carbon Dioxide 29 Anion Gap 13 BUN 99.7 H Creatinine 4.3 H Est GFR (CKD-EPI)AfAm 10.13 Est GFR (CKD-EPI)NonAf 8.74 POC Glucometer Random Glucose 155 H Calcium 9.8 Phosphorus 8.5 H Magnesium 2.4 Total Bilirubin 1.0 AST 41 H ALT 20 Alkaline Phosphatase 139 H Troponin I Total Protein 6.2 L Albumin 2.9 L Current Medications Generic Name Dose Route Start Last Admin Trade Name Freq PRN Reason Stop Dose Admin Acetaminophen 650 mg 01/14/19 16:03 Tylenol - PO Q6H PRN PAIN LEVEL 1-5 Apixaban 2.5 mg 01/13/19 22:00 01/14/19 09:52 Eliquis - PO 2.5 mg BID KESHAWN Administration Atorvastatin Calcium 20 mg 01/13/19 22:00 01/13/19 22:33 Lipitor - PO 20 mg HS KESHAWN Administration Diltiazem HCl 120 mg 01/14/19 10:00 01/14/19 09:52 Cardizem Cd - PO 120 mg DAILY KESHAWN Administration Furosemide 40 mg 01/13/19 15:45 01/14/19 06:29 Lasix Injection - IVPUSH 40 mg BIDLASIX KESHAWN Administration Metoprolol Succinate 50 mg 01/13/19 22:00 01/13/19 22:34 Toprol Xl - PO 50 mg BID KESHAWN Administration Non-Formulary Medication 12 gm 01/13/19 14:00 Fluticasone/Salmeterol [Advair Hfa 230-21 Mcg Inhaler] IH DAILY [facility] Pantoprazole Sodium 40 mg 01/14/19 10:00 01/14/19 09:52 Protonix - PO 40 mg DAILY KESHAWN Administration Tiotropium [place] 2 puff 01/14/19 10:00 Spiriva Respimat IH DAILY [facility] Home Medications Medication Instructions Recorded Amlodipine Besylate [Norvasc -] 5 mg PO DAILY 05/22/17 Apixaban [Eliquis] 2.5 tab PO BID 05/22/17 Fluticasone/Salmeterol [Advair Hfa 12 gm IH DAILY 05/22/17 230-21 Mcg Inhaler] Lipase/Protease/Amylase [[place] 1 each PO Q8H 05/22/17 36,000 Units Capsule] Metoprolol Succinate 25 mg PO BID 05/22/17 Omeprazole 40 mg PO DAILY 05/22/17 Simvastatin 40 mg PO DAILY 05/22/17 Tiotropium [place] [Spiriva] 2.5 mcg IH BID 05/22/17 Furosemide 40 mg PO DAILY 12/25/18 ASSESSMENT AND PLAN: 88 year old female with history of CRF on COPD (on home oxygen, 3L), chronic diastolic heart failure, Atrial fibrillation (on Eliquis, s/p PPM), coronary artery disease, hypertension, Chronic LBBB, hyperlipidemia, CKD 4, Hx CVA, presents with shortness of breath worse on exertion, with associated cough. No sputum/hemoptysis. 1. Acute Hypoxic/Hypercapneic Respiratory Failure secondary to acute diastolic CHF decompensation due to non-compliance with prescribed Lasix. Pitting edema. CXR - worsening congestive changes Elevated BNP Improved with BiPAP, now comfortable on NC Continue IV Lasix. Telemonitoring, I/Os, daily weights. Cardiology consulted 2. Atrial fibrillation with RVR Continue Diltiazem, Metoprolol Continue Eliquis. 3. PAULA on CKD 3/4 ? sec to cardiorenal syndrome Worsening creatinine US Bladder/Kidneys requested. Continue IV lasix diuresis. I/Os. ARB held. Nephrology consulted. 4. HTN - Continue Diltiazem, Metoprolol. Valsartan held. 5. HLD - Continue Atorvastatin 6. DM 2 - Continue sliding scale Novolog 7. CRF sec to COPD/Pulmonary HTN - on Home O2. Appears not to be in COPD exacerbation. Continue Bronchodilator Nebs, Spiriva. Received IV Solumedrol in ED, will hold further steroid for now. DVT Px - on Eliquis.
[2019-01-14] MEDS: ATORVASTATIN CA 20 MG TABLET (FP) PO SCH (22:50)
[2019-01-15] MEDS: ACETAMINOPHEN 325 MG TABLET (FP) PO PRN ×4 (00:01→21:21)
[2019-01-15] MEDS ORDERED: MAG HYDROX/AL HYDROX/SIMETH 30 ML UNIT-DOSE CUP PO ONE ×2 (02:36→23:26)
[2019-01-15 07:33] LABS: ALBUMIN 2.9 g/dl (3.4-5.0); ALK PHOS 187 U/L (45-117); ANION GAP 17 MMOL/L (8-16); BILIRUBIN,TOTAL 1.1 mg/dL (0.2-1); CALCIUM 8.9 mg/dL (8.5-10.1); CHLORIDE 90 mmol/L (98-107); CO2 25 mmol/L (21-32); CREATININE 5.5 mg/dL (0.55-1.3); GLUCOSE,RANDOM 121 mg/dL (74-106); MAGNESIUM 2.8 mg/dL (1.8-2.4); POTASSIUM 4.5 mmol/L (3.5-5.1); SGOT/AST 60 U/L (15-37); SGPT/ALT 23 U/L (13-61); SODIUM 133 mmol/L (136-145); TOT PROT 5.9 g/dl (6.4-8.2)
[2019-01-15 07:38] LABS: BASO % 0.4 % (0-2.0); BLOOD UREA NITROGEN 131.6 mg/dL (7-18); HEMATOCRIT 33.4 % (32.4-45.2); HEMOGLOBIN 10.7 GM/dL (10.7-15.3); LYMPH % 5.6 % (8-40); MCH 27.5 pg (25.7-33.7); MCHC 31.9 g/dl (32.0-36.0); MEAN CELL VOLUME 86.1 fl (80-96); MEAN PLT VOLUME 8.5 fl (7.5-11.1); MONO % 5.3 % (3.8-10.2); NEUT % 88.7 % (42.8-82.8); PHOSPHOROUS > 9.0 mg/dL (2.5-4.9); PLATELET COUNT 321 K/MM3 (134-434); RBC 3.87 M/mm3 (3.60-5.2); RDW 17.1 % (11.6-15.6); WHITE BLOOD COUNT 10.3 K/mm3 (4.0-10.0)
[2019-01-15] MEDS: APIXABAN 2.5 MG TABLET PO SCH ×2 (09:13→21:21)
[2019-01-15] MEDS: PANTOPRAZOLE 40 MG TABLET (FP) PO SCH (09:13)
[2019-01-15] MEDS: metoPROLOL SUCCINATE 25 MG TAB.SR.24H (FP) PO SCH ×2 (09:13→21:21)
--- NOTE | 2019-01-15 09:41 | PN ---
Progress Note, Physician History of Present Illness: SOB, rapid afib, orthopnea, FRYE, chest tightness and LE edema improving with IV diuresis and rate-control of afib, feels fatigued. - Current Medication List Current Medications: Active Medications Acetaminophen (Tylenol -) 650 mg PO Q6H PRN PRN Reason: PAIN LEVEL 1-5 Last Admin: 01/15/19 07:00 Dose: 650 mg Albuterol Sulfate (Ventolin 0.083% Nebulizer Soln -) 1 amp NEB Q4H PRN PRN Reason: SHORT OF BREATH/WHEEZING Apixaban (Eliquis -) 2.5 mg PO BID [facility] Last Admin: 01/15/19 09:13 Dose: 2.5 mg Atorvastatin Calcium (Lipitor -) 20 mg PO HS [facility] Last Admin: 01/14/19 22:50 Dose: 20 mg Budesonide/Formoterol Fumarate (Symbicort 80/4.5mcg -) 2 puff IH BID [facility] Diltiazem HCl (Cardizem Cd -) 120 mg PO DAILY [facility] Last Admin: 01/15/19 09:13 Dose: 120 mg Furosemide (Lasix Injection -) 40 mg IVPUSH BIDLASIX [facility] Last Admin: 01/14/19 06:29 Dose: 40 mg Metoprolol Succinate (Toprol Xl -) 50 mg PO BID [facility] Last Admin: 01/15/19 09:13 Dose: 50 mg Pantoprazole Sodium (Protonix -) 40 mg PO DAILY [facility] Last Admin: 01/15/19 09:13 Dose: 40 mg Tiotropium [place] (Spiriva Respimat) 2 puff IH DAILY [facility] Last Admin: 01/14/19 10:00 Dose: Not Given - Objective Vital Signs: Vital Signs Temperature 98.5 F 01/15/19 08:07 Pulse Rate 46 L 01/15/19 08:07 Respiratory Rate 20 01/15/19 08:07 Blood Pressure 136/87 01/15/19 08:07 O2 Sat by Pulse Oximetry (%) 100 01/15/19 09:06 Constitutional: Yes: No Distress, Calm Neck: Yes: Supple Cardiovascular: Yes: Pulse Irregular Respiratory: Yes: Regular, Diminished, On Nasal O2 Gastrointestinal: Yes: Soft, Abdomen, Obese Edema: Yes Edema: LLE: 1+, RLE: 1+ Labs: CBC, BMP 01/15/19 05:35 01/15/19 05:35 INR, PTT INR 1.84 (0.83-1.09) H 01/13/19 10:58 - ....Imaging Chest X-ray: Report Reviewed (Improvement in congestion and bilateral pleural effusions) EKG: Report Reviewed (Tele: Paroxysmal Afib with occ paced beats) Problem List - Problems (1) [id number] kidney injury Code(s): N17.9 - ACUTE KIDNEY FAILURE, UNSPECIFIED; N18.9 - CHRONIC KIDNEY DISEASE, UNSPECIFIED Qualifiers: Chronic kidney disease stage: stage 4 (severe) (2) Acute on chronic diastolic CHF (congestive heart failure) Code(s): I50.33 - ACUTE ON CHRONIC DIASTOLIC (CONGESTIVE) HEART FAILURE (3) Acute on chronic respiratory failure with hypoxia and hypercapnia Code(s): J96.21 - ACUTE AND CHRONIC RESPIRATORY FAILURE WITH HYPOXIA; J96.22 - ACUTE AND CHRONIC RESPIRATORY FAILURE WITH HYPERCAPNIA (4) Atrial fibrillation with rapid ventricular response Code(s): I48.91 - UNSPECIFIED ATRIAL FIBRILLATION (5) Chronic anticoagulation Code(s): Z79.01 - SPRING FORMER HAND (CURRENT) USE OF ANTICOAGULANTS (6) FRYE (dyspnea on exertion) Code(s): R06.09 - OTHER FORMS OF DYSPNEA (7) Hyperlipidemia Code(s): E78.5 - HYPERLIPIDEMIA, UNSPECIFIED Qualifiers: Hyperlipidemia type: pure hypercholesterolemia Qualified Code(s): E78.00 - Pure hypercholesterolemia, unspecified; E78.0 - Pure hypercholesterolemia (8) Pulmonary HTN Code(s): I27.20 - PULMONARY HYPERTENSION, UNSPECIFIED (9) Sleep apnea Code(s): G47.30 - SLEEP APNEA, UNSPECIFIED Assessment/Plan 12/25/2018 Echo: Normal LV and RV size and fxn, mod MR, TR RVSP 30-40 mmHg, mild 12/31/2018 Normal renal US 11/03/2018 Echo: Normal LV size and fxn LVEF 55-60%, grade II DD, mild-mod TR RVSP 44 mmHg, mild-mod MG 12 mmHg 11/03/[address]: Emphysema, ILD, pulm HTN 08/16/2015 Echo: Normal LV size with mild cLVH, mod-severe decreased LVEF, mod TR , mild MR, DE 03/09/2015 P=Myoview: No ischemia, LVEF 51% 1. Acute on chronic hypercapneic, hypoxemic respiratory failure referable to 2. Acute on chronic LV diastolic failure with h/o resolved cardiomyopathy in context of 3. Paroxysmal atrial fibrillation with rapid ventricular response [id number] score of 7-8 now on NOAC 4. 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 CAD negative MPI study for myocardial ischemia 03/09/2015 6. Post pacemaker 7. HTN 8. Hypercholesterolemia 9. History of CVA 10. Acute on CKD due to hemodynamic alterations PLAN: 1. Oral diuresis with monitor diuretic response, renal fxn and electrolytes, wrap legs 2. Continue metoprolol 50 bid and Cardizem CD 120 qd with IV Cardizem or Lopressor as needed for rate-control, continue Lipitor 20 qhs and Eliquis 2.5 bid, resume Diovan as hemodynamics tolerate once renal fxn at baseline 3. BD, O2, Bipap as needed, observe off steroids and abx 4. Counselled on diet and medication compliance 5. F/u renal US and electrolytes
[2019-01-15] MEDS ORDERED: PT OWN MED DRAWER 7, Y5N ONE (11:07)
[2019-01-15] MEDS: TIOTROPIUM BROMIDE 2.5 MCG (SPIRIVA) RESPIMAT INHALER IH SCH (11:12)
[2019-01-15] MEDS: BUDESONIDE/FORMETEROL FUMARATE 80/4.5 mcg INHALER IH SCH ×2 (11:12→21:23)
--- NOTE | 2019-01-15 13:00 | PN ---
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 Pt seen at bedside this morning. She c/o epigastric pain that is on/off, relieved by PPI, like yesterday but persistent. No nausea/vomiting. No CP/ palpitations/fever/chills. OBJECTIVE: Vital Signs Period Temp Pulse Resp BP Sys/Perez Pulse Ox Last 24 Hr 97.0 F-98.5 F 46-99 20-20 96-143/41-87 97-100 GENERAL: The patient is awake, alert, and fully oriented, on bipap, in no acute distress. Speaking [place] only. HEAD: NCAT EYES: ZAHRAA, EOMI, conjunctiva clear. No ptosis. Wearing corrective lenses. ENT: Ears normal, nares patent, oropharynx clear without exudates, moist mucous membranes. On NC 3L. NECK: Trachea midline, full range of motion, supple. LUNGS: Decreased air entry on RIGHT lower lobe. Clear to auscultation elsewhere. No wheezes, no crackles, no accessory muscle use. HEART: Irregular, S1, S2 without murmur, rub or gallop. ABDOMEN: Obese, soft, nontender, nondistended, normoactive bowel sounds, no guarding, no rebound, no hepatosplenomegaly, no masses. EXTREMITIES: 1+ pitting edema in LE BL. 2+ pulses irregular, warm, well- perfused NEUROLOGICAL: Cranial nerves II through XII grossly intact. Normal speech, gait not observed. PSYCH: Normal mood, normal affect. SKIN: Warm, dry, normal turgor, no rashes or lesions noted Laboratory Results - last 24 hr 01/14/19 01/15/19 01/15/19 16:29 05:35 05:35 WBC 10.3 H RBC 3.87 Hgb 10.7 Hct 33.4 MCV 86.1 MCH 27.5 MCHC 31.9 L RDW 17.1 H Plt Count 321 MPV 8.5 Absolute Neuts (auto) 9.1 H Neutrophils % 88.7 H Lymphocytes % 5.6 L D Monocytes % 5.3 Eosinophils % 0.0 D Basophils % 0.4 Nucleated RBC % 0 Sodium 133 L Potassium 4.5 Chloride 90 L Carbon Dioxide 25 Anion Gap 17 H BUN 131.6 H* Creatinine 5.5 H Est GFR (CKD-EPI)AfAm 7.52 Est GFR (CKD-EPI)NonAf 6.49 POC Glucometer Random Glucose 121 H Calcium 8.9 Phosphorus > 9.0 H* Magnesium 2.8 H Total Bilirubin 1.1 H AST 60 H ALT 23 Alkaline Phosphatase 187 H Troponin I 0.04 Total Protein 5.9 L Albumin 2.9 L Lipase 385 01/15/19 10:54 WBC RBC Hgb Hct MCV MCH MCHC RDW Plt Count MPV Absolute Neuts (auto) Neutrophils % Lymphocytes % Monocytes % Eosinophils % Basophils % Nucleated RBC % Sodium Potassium Chloride Carbon Dioxide Anion Gap BUN Creatinine Est GFR (CKD-EPI)AfAm Est GFR (CKD-EPI)NonAf POC Glucometer 151 Random Glucose Calcium Phosphorus Magnesium Total Bilirubin AST ALT Alkaline Phosphatase Troponin I Total Protein Albumin Lipase Active Medications Acetaminophen (Tylenol -) 650 mg PO Q6H PRN PRN Reason: PAIN LEVEL 1-5 Last Admin: 01/15/19 07:00 Dose: 650 mg Albuterol Sulfate (Ventolin 0.083% Nebulizer Soln -) 1 amp NEB Q4H PRN PRN Reason: SHORT OF BREATH/WHEEZING Apixaban (Eliquis -) 2.5 mg PO BID [facility] Last Admin: 01/15/19 09:13 Dose: 2.5 mg Atorvastatin Calcium (Lipitor -) 20 mg PO HS [facility] Last Admin: 01/14/19 22:50 Dose: 20 mg Budesonide/Formoterol Fumarate (Symbicort 80/4.5mcg -) 2 puff IH BID [facility] Last Admin: 01/15/19 11:12 Dose: 2 puff Diltiazem HCl (Cardizem Cd -) 120 mg PO DAILY [facility] Last Admin: 01/15/19 09:13 Dose: 120 mg Metoprolol Succinate (Toprol Xl -) 50 mg PO BID [facility] Last Admin: 01/15/19 09:13 Dose: 50 mg Pantoprazole Sodium (Protonix -) 40 mg PO DAILY [facility] Last Admin: 01/15/19 09:13 Dose: 40 mg Tiotropium [place] (Spiriva Respimat) 2 puff IH DAILY [facility] Last Admin: 01/15/19 11:12 Dose: 2 puff Torsemide (Demadex -) 20 mg PO DAILY [facility] ASSESSMENT/PLAN: 88 year old female with history of CRF on COPD (on home oxygen, 3L), chronic diastolic heart failure, Atrial fibrillation (on Eliquis, s/p PPM), coronary artery disease, hypertension, Chronic LBBB, hyperlipidemia, CKD 4, and Hx CVA, whom presents with shortness of breath worse on exertion, with associated cough. No sputum/hemoptysis. # Acute Hypoxic/Hypercapneic Respiratory Failure 2/2 acute diastolic CHF decompensation due to non-compliance with prescribed Lasix. - CXR - worsening congestive changes - Elevated BNP - Improved with BiPAP - Cardiology consulted: IV Lasix changed to oral torsemide - Telemonitoring, I/Os, daily weights. # Abnormal EKG - Prolonged QTc n 14 Jan 2019 [phone] and [phone] 23:32; avoid QT prolonging agents - Multiple PVC # PAULA on CKD 3/CKD 4 - MOst likely 2/2 cardiorenal syndrome - BUN 131.6. Cr 5.5 - US Bladder/Kidneys requested. - Continue IV lasix diuresis. I/Os. - ARB held. - Nephrology consulted # A fib with RVR - Cont. diltiazem, metoprolol and Eliquis # HTN - Continue Diltiazem, Metoprolol. - Valsartan held. # HLD - Cont atorvastatin # DM - ISS Novolog # Chronic Respiratory Failure 2/2 COPD/Pulmonary HTN - On Home O2. - Current presentation appears not to be in COPD exacerbation - Cont. bronchodilator nebs, Spiriva. - Received IV Solumedrol in ED, will hold further steroid for now. # F/E/N - No standing fluids - Cont. to monitor electrolytes - Low sodium/diabetic diet # DVT prophylaxis - on Eliquis. Jorge Marshall MD Visit type - Emergency Visit Emergency Visit: No - New Patient This patient is new to me today: No - Critical Care Critical Care patient: No - Discharge Referral Referred to [facility] No ATTENDING PHYSICIAN STATEMENT I saw and evaluated the patient. I reviewed the resident's note and discussed the case with the resident. I agree with the resident's findings and plan as documented. SUBJECTIVE: OBJECTIVE: ASSESSMENT AND PLAN:
--- NOTE | 2019-01-15 13:39 | PN ---
Teaching Attending Note Name of Resident: Jorge Marshall ATTENDING PHYSICIAN STATEMENT I saw and evaluated the patient. I reviewed the resident's note and discussed the case with the resident. I agree with the resident's findings and plan as documented. SUBJECTIVE: Tolerating BiPAP. Complains of intermittent epigastric discomfort. No nausea/vomiting. No CP/palpitations/fever/chills. OBJECTIVE: Afebrile, Hemodynamically Stable. Comfortable on BiPAP. Last Vital Signs Temp Pulse Resp BP Pulse Ox 98.5 F 46 L 20 136/87 97 01/15/19 08:07 01/15/19 08:07 01/15/19 08:07 01/15/19 08:07 01/15/19 12:12 Heart - S1, S2, RRR Lungs - decreased air entry bilaterally, with bibasal crackles. Abdomen - mild distension, epigastric tenderness. Bowel sounds normal. Extremities - Pitting edema ++. No calf tenderness. Neuro - AAO x 3. Tone/Power normal all 4 extremities. Laboratory Results - last 24 hr 01/14/19 01/15/19 01/15/19 16:29 05:35 05:35 WBC 10.3 H RBC 3.87 Hgb 10.7 Hct 33.4 MCV 86.1 MCH 27.5 MCHC 31.9 L RDW 17.1 H Plt Count 321 MPV 8.5 Absolute Neuts (auto) 9.1 H Neutrophils % 88.7 H Lymphocytes % 5.6 L D Monocytes % 5.3 Eosinophils % 0.0 D Basophils % 0.4 Nucleated RBC % 0 Sodium 133 L Potassium 4.5 Chloride 90 L Carbon Dioxide 25 Anion Gap 17 H BUN 131.6 H* Creatinine 5.5 H Est GFR (CKD-EPI)AfAm 7.52 Est GFR (CKD-EPI)NonAf 6.49 POC Glucometer Random Glucose 121 H Calcium 8.9 Phosphorus > 9.0 H* Magnesium 2.8 H Total Bilirubin 1.1 H AST 60 H ALT 23 Alkaline Phosphatase 187 H Troponin I 0.04 Total Protein 5.9 L Albumin 2.9 L Lipase 385 01/15/19 10:54 WBC RBC Hgb Hct MCV MCH MCHC RDW Plt Count MPV Absolute Neuts (auto) Neutrophils % Lymphocytes % Monocytes % Eosinophils % Basophils % Nucleated RBC % Sodium Potassium Chloride Carbon Dioxide Anion Gap BUN Creatinine Est GFR (CKD-EPI)AfAm Est GFR (CKD-EPI)NonAf POC Glucometer 151 Random Glucose Calcium Phosphorus Magnesium Total Bilirubin AST ALT Alkaline Phosphatase Troponin I Total Protein Albumin Lipase Current Medications Generic Name Dose Route Start Last Admin Trade Name Freq PRN Reason Stop Dose Admin Acetaminophen 650 mg 01/14/19 16:03 01/15/19 07:00 Tylenol - PO 650 mg Q6H PRN Administration PAIN LEVEL 1-5 Albuterol Sulfate 1 amp 01/14/19 17:48 Ventolin 0.083% Nebulizer Soln - NEB Q4H PRN SHORT OF BREATH/WHEEZING Apixaban 2.5 mg 01/13/19 22:00 01/15/19 09:13 Eliquis - PO 2.5 mg BID KESHAWN Administration Atorvastatin Calcium 20 mg 01/13/19 22:00 01/14/19 22:50 Lipitor - PO 20 mg HS KESHAWN Administration Budesonide/Formoterol Fumarate 2 puff 01/15/19 10:00 01/15/19 11:12 Symbicort 80/4.5mcg - IH 2 puff BID KESHAWN Administration Diltiazem HCl 120 mg 01/14/19 10:00 01/15/19 09:13 Cardizem Cd - PO 120 mg DAILY KESHAWN Administration Metoprolol Succinate 50 mg 01/13/19 22:00 01/15/19 09:13 Toprol Xl - PO 50 mg BID KESHAWN Administration Pantoprazole Sodium 40 mg 01/14/19 10:00 01/15/19 09:13 Protonix - PO 40 mg DAILY KESHAWN Administration Tiotropium [place] 2 puff 01/14/19 10:00 01/15/19 11:12 Spiriva Respimat IH 2 puff DAILY KESHAWN Administration Torsemide 20 mg 01/16/19 10:00 Demadex - PO DAILY [facility] Home Medications Medication Instructions Recorded Amlodipine Besylate [Norvasc -] 5 mg PO DAILY 05/22/17 Apixaban [Eliquis] 2.5 tab PO BID 05/22/17 Fluticasone/Salmeterol [Advair Hfa 12 gm IH DAILY 05/22/17 230-21 Mcg Inhaler] Lipase/Protease/Amylase [Clair Mcgee 1 each PO Q8H 05/22/17 36,000 Units Capsule] Metoprolol Succinate 25 mg PO BID 05/22/17 Omeprazole 40 mg PO DAILY 05/22/17 Simvastatin 40 mg PO DAILY 05/22/17 Tiotropium [place] [Spiriva] 2.5 mcg IH BID 05/22/17 Furosemide 40 mg PO DAILY 12/25/18 ASSESSMENT AND PLAN: 88 year old female with history of CRF on COPD (on home oxygen, 3L), chronic diastolic heart failure, Atrial fibrillation (on Eliquis, s/p PPM), coronary artery disease, hypertension, Chronic LBBB, hyperlipidemia, CKD 4, Hx CVA, presents with shortness of breath worse on exertion, with associated cough. No sputum/hemoptysis. 1. Acute Hypoxic/Hypercapneic Respiratory Failure secondary to acute diastolic CHF decompensation due to non-compliance with prescribed Lasix. Pitting edema ++ CXR - worsening congestive changes Elevated BNP Improved with BiPAP, now comfortable on NC IV Lasix changed to oral torsemide by Cardiology. Telemonitoring, I/Os, daily weights. Cardiology following. 2. Atrial fibrillation with RVR Continue Diltiazem, Metoprolol Continue Eliquis. 3. PAULA on CKD 3/4 ? sec to cardiorenal syndrome Worsening creatinine US Bladder/Kidneys - Continue IV lasix diuresis. I/Os. Nephrology following. 4. HTN - Continue Diltiazem, Metoprolol. 5. HLD - Continue Atorvastatin 6. CRF sec to COPD/Pulmonary HTN - on Home O2. Appears not to be in COPD exacerbation. Continue Bronchodilator Nebs, Spiriva. Received IV Solumedrol in ED, will hold further steroid for now. 7. Non-specific epigastric pain/tenderness ?gastritis. AST 60. Continue PPI. Abdominal US requested. DVT Px - on Eliquis.
--- NOTE | 2019-01-15 15:29 | EKG ---
Test Reason : Blood Pressure : / mmHG Vent. Rate : 078 BPM Atrial Rate : 073 BPM P-R Int : 000 ms QRS Dur : 134 ms QT Int : 446 ms P-R-T Axes : 000 000 216 degrees QTc Int : 508 ms ATRIAL FIBRILLATION LEFT BUNDLE BRANCH BLOCK ABNORMAL ECG Confirmed by JUSTEN THIBODEAUX MD ([id number]) on 01/15/2019 3:28:46 PM Referred By: Confirmed By:JUTSEN THIBODEAUX MD
--- NOTE | 2019-01-15 16:04 | PN ---
Progress Note, Physician History of Present Illness: Pt seen and examined at bedside. SHe is awake and alert. She still complains of lower ext edema. She refused the contreras yesterday. - Current Medication List Current Medications: Active Medications Acetaminophen (Tylenol -) 650 mg PO Q6H PRN PRN Reason: PAIN LEVEL 1-5 Last Admin: 01/15/19 15:51 Dose: 650 mg Albuterol Sulfate (Ventolin 0.083% Nebulizer Soln -) 1 amp NEB Q4H PRN PRN Reason: SHORT OF BREATH/WHEEZING Apixaban (Eliquis -) 2.5 mg PO BID [facility] Last Admin: 01/15/19 09:13 Dose: 2.5 mg Atorvastatin Calcium (Lipitor -) 20 mg PO HS [facility] Last Admin: 01/14/19 22:50 Dose: 20 mg Budesonide/Formoterol Fumarate (Symbicort 80/4.5mcg -) 2 puff IH BID [facility] Last Admin: 01/15/19 11:12 Dose: 2 puff Diltiazem HCl (Cardizem Cd -) 120 mg PO DAILY [facility] [place] Last Admin: 01/15/19 09:13 Dose: 120 mg Metoprolol Succinate (Toprol Xl -) 50 mg PO BID [facility] [place] Last Admin: 01/15/19 09:13 Dose: 50 mg Pantoprazole Sodium (Protonix -) 40 mg PO DAILY [facility] [place] Last Admin: 01/15/19 09:13 Dose: 40 mg Tiotropium [place] (Spiriva Respimat) 2 puff IH DAILY [facility] [place] Last Admin: 01/15/19 11:12 Dose: 2 puff Torsemide (Demadex -) 20 mg PO DAILY [facility] - Objective Vital Signs: Vital Signs Temperature 98.6 F 01/15/19 14:00 Pulse Rate 85 01/15/19 14:00 Respiratory Rate 20 01/15/19 14:00 Blood Pressure 103/57 L 01/15/19 14:00 O2 Sat by Pulse Oximetry (%) 97 01/15/19 12:12 Constitutional: Yes: Calm Eyes: Yes: Conjunctiva Clear HENT: Yes: Atraumatic Cardiovascular: Yes: S1, S2 Respiratory: Yes: CTA Bilaterally Gastrointestinal: Yes: Soft, Abdomen, Obese Genitourinary: Yes: WNL Musculoskeletal: Yes: WNL Edema: Yes Edema: LLE: 2+, RLE: 2+ Neurological: Yes: Oriented Psychiatric: Yes: Oriented Labs: CBC, BMP 01/15/19 05:35 01/15/19 05:35 INR, PTT INR 1.84 (0.83-1.09) H 01/13/19 10:58 Problem List - Problems (1) [id number] kidney injury Code(s): N17.9 - ACUTE KIDNEY FAILURE, UNSPECIFIED; N18.9 - CHRONIC KIDNEY DISEASE, UNSPECIFIED Qualifiers: Chronic kidney disease stage: stage 4 (severe) (2) CHF exacerbation Code(s): I50.9 - HEART FAILURE, UNSPECIFIED Qualifiers: Heart failure type: unspecified Qualified Code(s): I50.9 - Heart failure, unspecified (3) COPD exacerbation Code(s): J44.1 - CHRONIC OBSTRUCTIVE PULMONARY DISEASE W (ACUTE) EXACERBATION Assessment/Plan Current Medications Generic Name Dose Route Start Last Admin Trade Name Freq PRN Reason Stop Dose Admin Acetaminophen 650 mg 01/14/19 16:03 01/15/19 15:51 Tylenol - PO 650 mg Q6H PRN Administration PAIN LEVEL 1-5 Albuterol Sulfate 1 amp 01/14/19 17:48 Ventolin 0.083% Nebulizer Soln - NEB Q4H PRN SHORT OF BREATH/WHEEZING Apixaban 2.5 mg 01/13/19 22:00 01/15/19 09:13 Eliquis - PO 2.5 mg BID KESHAWN Administration Atorvastatin Calcium 20 mg 01/13/19 22:00 01/14/19 22:50 Lipitor - PO 20 mg HS KESHAWN Administration Budesonide/Formoterol Fumarate 2 puff 01/15/19 10:00 01/15/19 11:12 Symbicort 80/4.5mcg - IH 2 puff BID KESHAWN Administration Diltiazem HCl 120 mg 01/14/19 10:00 01/15/19 09:13 Cardizem Cd - PO 120 mg DAILY KESHAWN Administration Metoprolol Succinate 50 mg 01/13/19 22:00 01/15/19 09:13 Toprol Xl - PO 50 mg BID KESHAWN Administration Pantoprazole Sodium 40 mg 01/14/19 10:00 01/15/19 09:13 Protonix - PO 40 mg DAILY KESHAWN Administration Tiotropium [place] 2 puff 01/14/19 10:00 01/15/19 11:12 Spiriva Respimat IH 2 puff DAILY KESHAWN Administration Torsemide 20 mg 01/16/19 10:00 Demadex - PO DAILY KESHAWN Impression 1. CKD 2. PAULA 3. COPD 4. asthma 5. dyspnea 6. HTN 7. a-fib 8. CHF 9. CAD Plan - cont diuretics - repeat labs in am - may need HD therapy, discussed with pt and family at length - place contreras and monitor output, she agrees - get renal ultrasound - follow urine studies - cont lasix - place contreras - renal function is worsening however she is overloaded - monitor lytes - discussed with medical team - check renal ultrasound - repeat ua and lytes - avoid nsaids
[2019-01-15] MEDS ORDERED: FUROSEMIDE 40 MG/4 ML INJECTABLE VIAL IVPUSH ONE (16:12)
[2019-01-15 17:54] LABS: EPI CELLS 15.9 /HPF (0-5/HPF); HYALINE CASTS 107 /lpf (0-8); URINE APPEARANCE TURBID; URINE BILIRUBIN NEGATIVE (NEGATIVE); URINE COLOR DK YELLOW; URINE GLUCOSE (UA) NEGATIVE (NEGATIVE); URINE KETONE NEGATIVE (NEGATIVE); URINE LEUK ESTERASE NEGATIVE (NEGATIVE); URINE NITRITE NEGATIVE (NEGATIVE); URINE PROTEIN 2+ (NEGATIVE); URINE RBC 2 /hpf (0-4); URINE WBC 2 /hpf (0-5)
[2019-01-15 18:31] LABS: URINE BACTERIA FEW /hpf (NEGATIVE)
[2019-01-15 18:32] LABS: URINE CRYSTALS MODERATE /hpf
[2019-01-15] MEDS: ALBUTEROL SO4 0.083% IH SOL 2.5 MG/3 ML VIAL.NEB. NEB PRN (20:50)
[2019-01-15] MEDS: ATORVASTATIN CA 20 MG TABLET (FP) PO SCH (21:21)
[2019-01-15] MEDS ORDERED: PANTOPRAZOLE SODIUM 40 MG VIAL IVPUSH ONE (21:57)
[2019-01-15] MEDS ORDERED: FAMOTIDINE 20 MG/50 ML IVPB 20 MG/50 ML MG IVPB ONE (23:28)
[2019-01-16 08:04] LABS: BASO % 0.3 % (0-2.0); HEMATOCRIT 35.9 % (32.4-45.2); HEMOGLOBIN 11.2 GM/dL (10.7-15.3); LYMPH % 7.4 % (8-40); MCHC 31.3 g/dl (32.0-36.0); MEAN CELL VOLUME 86.3 fl (80-96); MEAN PLT VOLUME 8.9 fl (7.5-11.1); MONO % 5.4 % (3.8-10.2); NEUT % 86.9 % (42.8-82.8); PLATELET COUNT 368 K/MM3 (134-434); RBC 4.16 M/mm3 (3.60-5.2); RDW 16.9 % (11.6-15.6); WHITE BLOOD COUNT 13.6 K/mm3 (4.0-10.0)
[2019-01-16 08:48] LABS: ALBUMIN 2.9 g/dl (3.4-5.0); ALK PHOS 204 U/L (45-117); ANION GAP 19 MMOL/L (8-16); CALCIUM 8.6 mg/dL (8.5-10.1); CHLORIDE 89 mmol/L (98-107); CO2 22 mmol/L (21-32); CREATININE 6.6 mg/dL (0.55-1.3); GLUCOSE,RANDOM 87 mg/dL (74-106); SGOT/AST 113 U/L (15-37); SGPT/ALT 38 U/L (13-61); SODIUM 130 mmol/L (136-145)
[2019-01-16 09:01] LABS: BLOOD UREA NITROGEN > 150.0 mg/dL (7-18); PHOSPHOROUS > 9.0 mg/dL (2.5-4.9)
[2019-01-16] MEDS ORDERED: TORSEMIDE 20 MG TABLET (FP) PO SCH (10:00)
--- NOTE | 2019-01-16 10:05 | PN ---
Progress Note, Physician History of Present Illness: SOB, rapid afib, orthopnea, FRYE, chest tightness and LE edema improving with oral diuresis and rate-control of afib, renal function continues to worsen, oliguric. - Current Medication List Current Medications: Active Medications Acetaminophen (Tylenol -) 650 mg PO Q6H PRN PRN Reason: PAIN LEVEL 1-5 Last Admin: 01/15/19 21:21 Dose: 650 mg Albuterol Sulfate (Ventolin 0.083% Nebulizer Soln -) 1 amp NEB Q4H PRN PRN Reason: SHORT OF BREATH/WHEEZING Last Admin: 01/15/19 20:50 Dose: 1 amp Apixaban (Eliquis -) 2.5 mg PO BID [facility] Last Admin: 01/15/19 21:21 Dose: 2.5 mg Atorvastatin Calcium (Lipitor -) 20 mg PO HS [facility] Last Admin: 01/15/19 21:21 Dose: 20 mg Budesonide/Formoterol Fumarate (Symbicort 80/4.5mcg -) 2 puff IH BID [facility] Last Admin: 01/15/19 21:23 Dose: 2 puff Diltiazem HCl (Cardizem Cd -) 120 mg PO DAILY [facility] Last Admin: 01/15/19 09:13 Dose: 120 mg Metoprolol Succinate (Toprol Xl -) 50 mg PO BID [facility] Last Admin: 01/15/19 21:21 Dose: 50 mg Pantoprazole Sodium (Protonix -) 40 mg PO DAILY [facility] Last Admin: 01/15/19 09:13 Dose: 40 mg Tiotropium [place] (Spiriva Respimat) 2 puff IH DAILY [facility] Last Admin: 01/15/19 11:12 Dose: 2 puff - Objective Vital Signs: Vital Signs Temperature 97.6 F 01/16/19 07:00 Pulse Rate 74 01/16/19 07:00 Respiratory Rate 20 01/16/19 07:00 Blood Pressure 109/72 01/16/19 07:00 O2 Sat by Pulse Oximetry (%) 97 01/16/19 08:04 Constitutional: Yes: No Distress, Calm Neck: Yes: Supple Cardiovascular: Yes: Pulse Irregular Respiratory: Yes: Regular, Diminished, On Nasal O2 Gastrointestinal: Yes: Soft, Abdomen, Obese Edema: Yes Edema: LLE: 1+, RLE: 1+ Labs: CBC, BMP 01/16/19 06:19 01/16/19 06:19 INR, PTT INR 1.84 (0.83-1.09) H 01/13/19 10:58 - ....Imaging Chest X-ray: Report Reviewed (CHF) EKG: Report Reviewed (Tele: occ paced) Problem List - Problems (1) [id number] kidney injury Code(s): N17.9 - ACUTE KIDNEY FAILURE, UNSPECIFIED; N18.9 - CHRONIC KIDNEY DISEASE, UNSPECIFIED Qualifiers: Chronic kidney disease stage: stage 4 (severe) (2) Acute on chronic diastolic CHF (congestive heart failure) Code(s): I50.33 - ACUTE ON CHRONIC DIASTOLIC (CONGESTIVE) HEART FAILURE (3) Acute on chronic respiratory failure with hypoxia and hypercapnia Code(s): J96.21 - ACUTE AND CHRONIC RESPIRATORY FAILURE WITH HYPOXIA; J96.22 - ACUTE AND CHRONIC RESPIRATORY FAILURE WITH HYPERCAPNIA (4) Atrial fibrillation with rapid ventricular response Code(s): I48.91 - UNSPECIFIED ATRIAL FIBRILLATION (5) Chronic anticoagulation Code(s): Z79.01 - VEGETABLE GROWER (CURRENT) USE OF ANTICOAGULANTS (6) FRYE (dyspnea on exertion) Code(s): R06.09 - OTHER FORMS OF DYSPNEA (7) Hyperlipidemia Code(s): E78.5 - HYPERLIPIDEMIA, UNSPECIFIED Qualifiers: Hyperlipidemia type: pure hypercholesterolemia Qualified Code(s): E78.00 - Pure hypercholesterolemia, unspecified; E78.0 - Pure hypercholesterolemia (8) Pulmonary HTN Code(s): I27.20 - PULMONARY HYPERTENSION, UNSPECIFIED (9) Sleep apnea Code(s): G47.30 - SLEEP APNEA, UNSPECIFIED Assessment/Plan 12/25/2018 Echo: Normal LV and RV size and fxn, mod MR, TR RVSP 30-40 mmHg, mild 12/31/2018 Normal renal US 11/03/2018 Echo: Normal LV size and fxn LVEF 55-60%, grade II DD, mild-mod TR RVSP 44 mmHg, mild-mod MG 12 mmHg 11/03/[address]: Emphysema, ILD, pulm HTN 08/16/2015 Echo: Normal LV size with mild cLVH, mod-severe decreased LVEF, mod TR , mild MR, OH 03/09/2015 P=Myoview: No ischemia, LVEF 51% 1. Acute on chronic hypercapneic, hypoxemic respiratory failure referable to 2. Acute on chronic LV diastolic failure with h/o resolved cardiomyopathy in context of 3. Paroxysmal atrial fibrillation with rapid ventricular response [id number] score of 7-8 now on NOAC 4. 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 CAD negative MPI study for myocardial ischemia 03/09/2015 6. Post pacemaker 7. HTN 8. Hypercholesterolemia 9. History of CVA 10. Acute on CKD due to hemodynamic alterations 11. Hyponatremia PLAN: 1. Oral diuresis with monitor diuretic response, renal fxn and electrolytes, wrap legs, may require HD 2. Continue metoprolol 50 bid and Cardizem CD 120 qd with IV Cardizem or Lopressor as needed for rate-control, continue Lipitor 20 qhs, but hold Eliquis 2.5 bid pending dialysis catheter, resume Diovan as hemodynamics tolerate once renal fxn at baseline 3. BD, O2, Bipap as needed, observe off steroids and abx 4. Counselled on diet and medication compliance 5. F/u renal US and electrolytes
[2019-01-16 10:12] LABS: INR 2.6 (0.83-1.09)
[2019-01-16 10:14] LABS: ACTIVATED PTT 30.7 SECONDS (25.2-36.5)
[2019-01-16] MEDS: APIXABAN 2.5 MG TABLET PO SCH (11:23)
[2019-01-16] MEDS: metoPROLOL SUCCINATE 25 MG TAB.SR.24H (FP) PO SCH ×2 (11:26→22:53)
[2019-01-16] MEDS: PANTOPRAZOLE 40 MG TABLET (FP) PO SCH (11:26)
[2019-01-16] MEDS: TIOTROPIUM BROMIDE 2.5 MCG (SPIRIVA) RESPIMAT INHALER IH SCH (11:26)
[2019-01-16] MEDS: BUDESONIDE/FORMETEROL FUMARATE 80/4.5 mcg INHALER IH SCH (11:27)
[2019-01-16] MEDS: ALBUTEROL SO4 0.083% IH SOL 2.5 MG/3 ML VIAL.NEB. NEB PRN ×2 (11:40→22:40)
--- NOTE | 2019-01-16 12:48 | PN ---
Progress Note, Physician History of Present Illness: Pt seen and examined at bedside. She is awake and alert. She complains of shortness of breath. - Current Medication List Current Medications: Active Medications Acetaminophen (Tylenol -) 650 mg PO Q6H PRN PRN Reason: PAIN LEVEL 1-5 Last Admin: 01/15/19 21:21 Dose: 650 mg Albuterol Sulfate (Ventolin 0.083% Nebulizer Soln -) 1 amp NEB Q4H PRN PRN Reason: SHORT OF BREATH/WHEEZING Last Admin: 01/15/19 20:50 Dose: 1 amp Atorvastatin Calcium (Lipitor -) 20 mg PO HS [facility] Last Admin: 01/15/19 21:21 Dose: 20 mg Budesonide/Formoterol Fumarate (Symbicort 80/4.5mcg -) 2 puff IH BID [facility] Last Admin: 01/16/19 11:27 Dose: 2 puff Diltiazem HCl (Cardizem Cd -) 120 mg PO DAILY [facility] Last Admin: 01/16/19 11:26 Dose: 120 mg Metoprolol Succinate (Toprol Xl -) 50 mg PO BID [facility] Last Admin: 01/16/19 11:26 Dose: 50 mg Pantoprazole Sodium (Protonix -) 40 mg PO DAILY [facility] Last Admin: 01/16/19 11:26 Dose: 40 mg Tiotropium [place] (Spiriva Respimat) 2 puff IH DAILY [facility] Last Admin: 01/16/19 11:26 Dose: 2 puff - Objective Vital Signs: Vital Signs Temperature 97.6 F 01/16/19 07:00 Pulse Rate 74 01/16/19 07:00 Respiratory Rate 20 01/16/19 07:00 Blood Pressure 109/72 01/16/19 07:00 O2 Sat by Pulse Oximetry (%) 97 01/16/19 08:04 Constitutional: Yes: Calm Eyes: Yes: Conjunctiva Clear HENT: Yes: Atraumatic Neck: Yes: Supple Cardiovascular: Yes: S1, S2 Respiratory: Yes: On Nasal O2, Rhonchi Gastrointestinal: Yes: Soft Genitourinary: Yes: Goldstein Present, Oliguria Musculoskeletal: Yes: WNL Edema: Yes Edema: LLE: 2+, RLE: 2+ Neurological: Yes: Oriented Psychiatric: Yes: Oriented Labs: CBC, BMP 01/16/19 06:19 01/16/19 06:19 INR, PTT INR 2.60 (0.83-1.09) H 01/16/19 06:19 Problem List - Problems (1) Qrtep-aq-jlhtupa kidney injury Code(s): N17.9 - ACUTE KIDNEY FAILURE, UNSPECIFIED; N18.9 - CHRONIC KIDNEY DISEASE, UNSPECIFIED (2) CHF exacerbation Code(s): I50.9 - HEART FAILURE, UNSPECIFIED Qualifiers: Qualified Code(s): I50.9 - Heart failure, unspecified (3) COPD exacerbation Code(s): J44.1 - CHRONIC OBSTRUCTIVE PULMONARY DISEASE W (ACUTE) EXACERBATION Assessment/Plan Current Medications Generic Name Dose Route Start Last Admin Trade Name Freq PRN Reason Stop Dose Admin Acetaminophen 650 mg 01/14/19 16:03 01/15/19 21:21 Tylenol - PO 650 mg Q6H PRN Administration PAIN LEVEL 1-5 Albuterol Sulfate 1 amp 01/14/19 17:48 01/15/19 20:50 Ventolin 0.083% Nebulizer Soln - NEB 1 amp Q4H PRN Administration SHORT OF BREATH/WHEEZING Atorvastatin Calcium 20 mg 01/13/19 22:00 01/15/19 21:21 Lipitor - PO 20 mg HS KESHAWN Administration Budesonide/Formoterol Fumarate 2 puff 01/15/19 10:00 01/16/19 11:27 Symbicort 80/4.5mcg - IH 2 puff BID KESHAWN Administration Diltiazem HCl 120 mg 01/14/19 10:00 01/16/19 11:26 Cardizem Cd - PO 120 mg DAILY KESHAWN Administration Metoprolol Succinate 50 mg 01/13/19 22:00 01/16/19 11:26 Toprol Xl - PO 50 mg BID KESHAWN Administration Pantoprazole Sodium 40 mg 01/14/19 10:00 01/16/19 11:26 Protonix - PO 40 mg DAILY KESHAWN Administration Tiotropium [place] 2 puff 01/14/19 10:00 01/16/19 11:26 Spiriva Respimat IH 2 puff DAILY KESHAWN Administration Impression 1. CKD 2. PAULA 3. COPD 4. asthma 5. dyspnea 6. HTN 7. a-fib 8. CHF 9. CAD Plan - spoke to pt and her daughter at length, explained risks of HD and they agrees - called vascular for access - HD today once she get a shiley - renal workup in progress - renal ultrasound reviewed - cxr congested - avoid nsaids
--- NOTE | 2019-01-16 12:52 | PN ---
Teaching Attending Note Name of Resident: Jorge Marshall ATTENDING PHYSICIAN STATEMENT I saw and evaluated the patient. I reviewed the resident's note and discussed the case with the resident. I agree with the resident's findings and plan as documented. SUBJECTIVE: Feels cold. Dyspnea improved. Worsening LE edema. Complains of abdominal tenderness .No nausea/vomiting. No CP/palpitations/fever/chills. OBJECTIVE: Afebrile, Hemodynamically Stable. Last Vital Signs Temp Pulse Resp BP Pulse Ox 97.6 F 74 20 109/72 97 01/16/19 07:00 01/16/19 07:00 01/16/19 07:00 01/16/19 07:00 01/16/19 08:04 Heart - S1, S2, RRR Lungs - decreased air entry bilaterally, with bibasal crackles. Abdomen - mild distension, epigastric tenderness. Bowel sounds normal. Extremities - Pitting edema ++. No calf tenderness. Neuro - AAO x 3. Tone/Power Normal all 4 extremities. Laboratory Results - last 24 hr 01/15/19 01/15/19 01/15/19 15:30 16:16 23:06 WBC RBC Hgb Hct MCV MCH MCHC RDW Plt Count MPV Absolute Neuts (auto) Neutrophils % Lymphocytes % Monocytes % Eosinophils % Basophils % Nucleated RBC % PT with INR INR PTT (Actin FS) Sodium Potassium Chloride Carbon Dioxide Anion Gap BUN Creatinine Est GFR (CKD-EPI)AfAm Est GFR (CKD-EPI)NonAf POC Glucometer 128 114 Random Glucose Calcium Phosphorus Magnesium Total Bilirubin AST ALT Alkaline Phosphatase Total Protein Albumin Urine Color Dk yellow Urine Appearance Turbid Urine pH 5.0 Ur Specific [place] 1.019 Urine Protein 2+ H Urine Glucose (UA) Negative Urine Ketones Negative Urine Blood Negative Urine Nitrite Negative Urine Bilirubin Negative Urine Urobilinogen 1.0 Ur Leukocyte Esterase Negative Urine WBC (Auto) 2 Urine RBC (Auto) 2 Urine Casts (Auto) 107 U Pathogenic Cast Auto Negative U Epithel Cells (Auto) 15.9 U Sm Round Cell (Auto) Negative Urine Crystals (Auto) Moderate Urine Bacteria (Auto) Few 01/16/19 01/16/19 01/16/19 05:55 06:19 06:19 WBC 13.6 H RBC 4.16 Hgb 11.2 Hct 35.9 MCV 86.3 MCH 27.0 MCHC 31.3 L RDW 16.9 H Plt Count 368 MPV 8.9 Absolute Neuts (auto) 11.8 H Neutrophils % 86.9 H Lymphocytes % 7.4 L D Monocytes % 5.4 Eosinophils % 0.0 Basophils % 0.3 Nucleated RBC % 0 PT with INR INR PTT (Actin FS) Sodium 130 L Potassium 5.0 Chloride 89 L Carbon Dioxide 22 Anion Gap 19 H BUN > 150.0 H* Creatinine 6.6 H Est GFR (CKD-EPI)AfAm 6.03 Est GFR (CKD-EPI)NonAf 5.21 POC Glucometer 106 Random Glucose 87 Calcium 8.6 Phosphorus > 9.0 H* Magnesium 3.0 H Total Bilirubin 1.0 AST 113 H ALT 38 Alkaline Phosphatase 204 H Total Protein 6.0 L Albumin 2.9 L Urine Color Urine Appearance Urine pH Ur Specific [place] Urine Protein Urine Glucose (UA) Urine Ketones Urine Blood Urine Nitrite Urine Bilirubin Urine Urobilinogen Ur Leukocyte Esterase Urine WBC (Auto) Urine RBC (Auto) Urine Casts (Auto) U Pathogenic Cast Auto U Epithel Cells (Auto) U Sm Round Cell (Auto) Urine Crystals (Auto) Urine Bacteria (Auto) 01/16/19 06:19 WBC RBC Hgb Hct MCV MCH MCHC RDW Plt Count MPV Absolute Neuts (auto) Neutrophils % Lymphocytes % Monocytes % Eosinophils % Basophils % Nucleated RBC % PT with INR 31.00 H INR 2.60 H PTT (Actin FS) 30.7 Sodium Potassium Chloride Carbon Dioxide Anion Gap BUN Creatinine Est GFR (CKD-EPI)AfAm Est GFR (CKD-EPI)NonAf POC Glucometer Random Glucose Calcium Phosphorus Magnesium Total Bilirubin AST ALT Alkaline Phosphatase Total Protein Albumin Urine Color Urine Appearance Urine pH Ur Specific [place] Urine Protein Urine Glucose (UA) Urine Ketones Urine Blood Urine Nitrite Urine Bilirubin Urine Urobilinogen Ur Leukocyte Esterase Urine WBC (Auto) Urine RBC (Auto) Urine Casts (Auto) U Pathogenic Cast Auto U Epithel Cells (Auto) U Sm Round Cell (Auto) Urine Crystals (Auto) Urine Bacteria (Auto) Current Medications Generic Name Dose Route Start Last Admin Trade Name Freq PRN Reason Stop Dose Admin Acetaminophen 650 mg 01/14/19 16:03 01/15/19 21:21 Tylenol - PO 650 mg Q6H PRN Administration PAIN LEVEL 1-5 Albuterol Sulfate 1 amp 01/14/19 17:48 01/15/19 20:50 Ventolin 0.083% Nebulizer Soln - NEB 1 amp Q4H PRN Administration SHORT OF BREATH/WHEEZING Atorvastatin Calcium 20 mg 01/13/19 22:00 01/15/19 21:21 Lipitor - PO 20 mg HS KESHAWN Administration Budesonide/Formoterol Fumarate 2 puff 01/15/19 10:00 01/16/19 11:27 Symbicort 80/4.5mcg - IH 2 puff BID KESHAWN Administration Diltiazem HCl 120 mg 01/14/19 10:00 01/16/19 11:26 Cardizem Cd - PO 120 mg DAILY KESHAWN Administration Metoprolol Succinate 50 mg 01/13/19 22:00 01/16/19 11:26 Toprol Xl - PO 50 mg BID KESHAWN Administration Pantoprazole Sodium 40 mg 01/14/19 10:00 01/16/19 11:26 Protonix - PO 40 mg DAILY KESHAWN Administration Tiotropium [place] 2 puff 01/14/19 10:00 01/16/19 11:26 Spiriva Respimat IH 2 puff DAILY KESHAWN Administration Home Medications Medication Instructions Recorded Amlodipine Besylate [Norvasc -] 5 mg PO DAILY 05/22/17 Apixaban [Eliquis] 2.5 tab PO BID 05/22/17 Fluticasone/Salmeterol [Advair Hfa 12 gm IH DAILY 05/22/17 230-21 Mcg Inhaler] Lipase/Protease/Amylase [Creon Dr 1 each PO Q8H 05/22/17 36,000 Units Capsule] Metoprolol Succinate 25 mg PO BID 05/22/17 Omeprazole 40 mg PO DAILY 05/22/17 Simvastatin 40 mg PO DAILY 05/22/17 Tiotropium [place] [Spiriva] 2.5 mcg IH BID 05/22/17 Furosemide 40 mg PO DAILY 12/25/18 ASSESSMENT AND PLAN: 88 year old female with history of CRF on COPD (on home oxygen, 3L), chronic diastolic heart failure, Atrial fibrillation (on Eliquis, s/p PPM), coronary artery disease, hypertension, Chronic LBBB, hyperlipidemia, CKD 4, Hx CVA, presents with shortness of breath worse on exertion, with associated cough. No sputum/hemoptysis. 1. Acute Hypoxic/Hypercapneic Respiratory Failure secondary to acute diastolic CHF decompensation due to non-compliance with prescribed Lasix. Pitting edema ++ CXR - worsening congestive changes Elevated BNP Improved with BiPAP, now comfortable on NC IV Lasix ineffectual in promoting diuresis. Urine contreras output only 100ml over 24 hours. Urine dark, blood tinged. Continue Telemonitoring, I/Os, daily weights. Cardiology following. 2. PAULA on CKD 3/4 ? sec to cardiorenal syndrome Worsening BUN/creatinine, poor urine output US Kidneys - atrophy, no obstruction As per Nephrology, will need HD emergently. Vascular Sx contacted to place HD catheter for initiation of HD. Family at bedside in agreement. 3. Atrial fibrillation with RVR Continue Diltiazem, Metoprolol Eliquis held for HD catheter insertion. 4. HTN - Continue Diltiazem, Metoprolol. 5. HLD - Continue Atorvastatin 6. CRF sec to COPD/Pulmonary HTN - on Home O2. Appears not to be in COPD exacerbation. Continue Bronchodilator Nebs, Spiriva. Received IV Solumedrol in ED, will hold further steroid for now. 7. Non-specific epigastric pain/tenderness ?gastritis. Continue PPI. AST up to 113 ?due to congestion. Abdominal US - contracted GB with thickened GB wall, without cholelithiasis. Afebrile, but WBC increasing. Will watch for possible cholecystitis. Low threshold for surgical consult. DVT Px - on Eliquis (held for HD catheter insertion)
[2019-01-16] MEDS ORDERED: SODIUM CHLORIDE 250 ML IV PRN (15:31)
--- NOTE | 2019-01-16 15:31 | CONSULT ---
- Consultation REQUESTING PROVIDER: James STATON CONSULT REQUEST: We have been asked to surgically evaluate this patient for ? abdominal pain ? PCP:Giacomo Ramirez MD HISTORY OF PRESENT ILLNESS: 88 y/o female w/# serious comorbid medical conditions presented w/ shortness of breath among other complaints and ?? abdominal pain ??; there is n/v/obstipation/constipation; hx obtained from family member. Patient cannot localize or quantify pain; she has been eating poorly. PMHx: CHF/AF?HTN/COPD/HLD PSHx: PPM Home Medications Medication Instructions Recorded Amlodipine Besylate [Norvasc -] 5 mg PO DAILY 05/22/17 Apixaban [Eliquis] 2.5 tab PO BID 05/22/17 Fluticasone/Salmeterol [Advair Hfa 12 gm IH DAILY 05/22/17 230-21 Mcg Inhaler] Lipase/Protease/Amylase [Creon Dr 1 each PO Q8H 05/22/17 36,000 Units Capsule] Metoprolol Succinate 25 mg PO BID 05/22/17 Omeprazole 40 mg PO DAILY 05/22/17 Simvastatin 40 mg PO DAILY 05/22/17 Tiotropium Start [Spiriva] 2.5 mcg IH BID 05/22/17 Furosemide 40 mg PO DAILY 12/25/18 Allergies Allergy/AdvReac Type Severity Reaction Status Date / Time aspirin Allergy Verified 12/24/18 09:29 REVIEW OF SYSTEMS: CONSTITUTIONAL: Present: fever, chills, diaphoresis, generalized weakness, malaise, loss of appetite, weight change CARDIOVASCULAR: Present: syncope, palpitations, irregular heart rate, lightheadedness, peripheral edema RESPIRATORY: Present: cough, shortness of breath, dyspnea with exertion, wheezing, stridor, GASTROINTESTINAL: Absent: abdominal pain, abdominal distension, nausea, vomiting, diarrhea, constipation, melena, hematochezia GENITOURINARY: Absent: dysuria, frequency, urgency, hesitancy, hematuria, flank pain, genital pain MUSCULOSKELETAL: Absent: myalgia, arthralgia, joint swelling, back pain, neck pain SKIN: Absent: rash, itching, pallor HEMATOLOGIC/IMMUNOLOGIC: Absent: easy bleeding, easy bruising, lymphadenopathy NEUROLOGIC: Absent: headache, focal weakness, paresthesias, dizziness, unsteady gait, seizure, mental status changes, bladder or bowel incontinence PSYCHIATRIC: Absent: anxiety, depression, suicidal or homicidal ideation, hallucinations. PHYSICAL EXAM: GENERAL: Awake, alert, and not fully oriented, in no acute distress. HEAD: Normal with no signs of trauma. EYES:, sclera anicteric, conjunctiva clear. NECK: Normal ROM, supple without lymphadenopathy, JVD, or masses. ABDOMEN: Soft, nontender, not distended, normoactive bowel sounds, no guarding, no rebound, no masses. No organomegaly. No hernias MUSCULOSKELETAL: Normal ROM at all joints. No bony deformities or tenderness. No CVA tenderness. UPPER EXTREMITIES: 2+ pulses, warm, well-perfused. No cyanosis. Cap refill <2 seconds. LOWER EXTREMITIES: 2+ pulses, warm, well-perfused. No calf tenderness. Present peripheral edema. NEUROLOGICAL: Normal speech, gait not observed. PSYCH: Cooperative. Good eye contact. Appropriate mood and affect. SKIN: Warm, dry, normal turgor, no rashes or lesions noted. Vital Signs Temperature 97.6 F 01/16/19 07:00 Pulse Rate 74 01/16/19 07:00 Respiratory Rate 20 01/16/19 07:00 Blood Pressure 109/72 01/16/19 07:00 O2 Sat by Pulse Oximetry (%) 97 01/16/19 08:04 Lab Results WBC 13.6 K/mm3 (4.0-10.0) H 01/16/19 06:19 RBC 4.16 M/mm3 (3.60-5.2) 01/16/19 06:19 Hgb 11.2 GM/dL (10.7-15.3) 01/16/19 06:19 Hct 35.9 % (32.4-45.2) 01/16/19 06:19 MCV 86.3 fl (80-96) 01/16/19 06:19 MCHC 31.3 g/dl (32.0-36.0) L 01/16/19 06:19 RDW 16.9 % (11.6-15.6) H 01/16/19 06:19 Plt Count 368 K/MM3 (134-434) 01/16/19 06:19 Sodium 130 mmol/L (136-145) L 01/16/19 06:19 Potassium 5.0 mmol/L (3.5-5.1) 01/16/19 06:19 Chloride 89 mmol/L (98-107) L 01/16/19 06:19 Carbon Dioxide 22 mmol/L (21-32) 01/16/19 06:19 Anion Gap 19 MMOL/L (8-16) H 01/16/19 06:19 BUN > 150.0 mg/dL (7-18) H* 01/16/19 06:19 Creatinine 6.6 mg/dL (0.55-1.3) H 01/16/19 06:19 Random Glucose 87 mg/dL (74-106) 01/16/19 06:19 Calcium 8.6 mg/dL (8.5-10.1) 01/16/19 06:19 Blood Type O POSITIVE 01/16/19 13:53 Antibody Screen Negative 01/16/19 13:53 INR 2.60 (0.83-1.09) H 01/16/19 06:19 IMP: no evidence of an acute surgical abdomen; pain most likely due to underlying medical comorbidities PLAN: Suggest when able CT scan a/p; in the interim correct e-lyte abnormalities ; will f/u. Moncho Hightower MD FACS
--- NOTE | 2019-01-16 16:52 | PROC ---
Central Line Insertion - Procedure Note TIME OUT performed prior to this procedure with verbal confirmation of correct patient identity, correct side, agreement of the procedure, correct patient position, availability of necessary equipment. The consent form is complete and accurate. Risk of possible infection, bleeding and pneumothorax have been discussed with the patient. Safety precautions based on patient history or medication use has been addressed. Indication: Other (Dialysis) Consent on Chart: Yes Central Line: Dialysis Cath, Dual Lumen Position: Supine Area prepped with Chlorhexidine solution then draped using sterile barrier protection. Anesthesia: Lidocaine 1% Technique used: Modified Seldinger Ultrasound Guided Assistance: Yes Site: Right Internal Jugular Dark venous non-pulsatile flow noted from hub of needle. The catheter was introduced. Guide wire removed intact. Each port aspirated then flushed with sterile normal saline and capped. Line secured to skin with silk suture. Biopatch placed around base of line. Sterile occlusive dressing applied. No complications. Patient tolerated the procedure well. STAT chest xray ordered to confirm position and rule out pneumothorax
--- NOTE | 2019-01-16 17:21 | PN ---
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 Pt seen at bedside along with daughter and son in room. Today she is resting comfortably, wrapped in blankets. She reports she is cold. She has continued abdominal pain. Pain is less severe today. OBJECTIVE: Vital Signs Period Temp Pulse Resp BP Sys/Perez Pulse Ox Last 24 Hr 97.4 F-97.6 F 74-86 20-22 99-109/72-79 94-97 GENERAL: The patient is awake, alert, and fully oriented, on bipap, in no acute distress. Speaking Occitan only. HEAD: NCAT EYES: ZAHRAA, EOMI, conjunctiva clear. No ptosis. Wearing corrective lenses. ENT: Ears normal, nares patent, oropharynx clear without exudates, moist mucous membranes. On NC 3L. NECK: Trachea midline, full range of motion, supple. LUNGS: Decreased air entry on RIGHT lower lobe. Clear to auscultation elsewhere. No wheezes, no crackles, no accessory muscle use. HEART: Irregular, S1, S2 without murmur, rub or gallop. ABDOMEN: Obese, soft, tender to palpation at epigastrium, nondistended, normoactive bowel sounds, no guarding, no rebound, no hepatosplenomegaly, no masses. Pain occurs episodically with peristaltic character. EXTREMITIES: 2+ pitting edema in LE BL. 2+ pulses irregular, warm, well- perfused NEUROLOGICAL: Cranial nerves II through XII grossly intact. Normal speech, gait not observed. PSYCH: Normal mood, normal affect. SKIN: Warm, dry, normal turgor, no rashes or lesions noted Laboratory Results - last 24 hr 01/15/19 01/15/19 01/16/19 15:30 23:06 05:55 WBC RBC Hgb Hct MCV MCH MCHC RDW Plt Count MPV Absolute Neuts (auto) Neutrophils % Lymphocytes % Monocytes % Eosinophils % Basophils % Nucleated RBC % PT with INR INR PTT (Actin FS) Sodium Potassium Chloride Carbon Dioxide Anion Gap BUN Creatinine Est GFR (CKD-EPI)AfAm Est GFR (CKD-EPI)NonAf POC Glucometer 114 106 Random Glucose Calcium Phosphorus Magnesium Total Bilirubin AST ALT Alkaline Phosphatase Total Protein Albumin Urine Color Dk yellow Urine Appearance Turbid Urine pH 5.0 Ur Specific [place] 1.019 Urine Protein 2+ H Urine Glucose (UA) Negative Urine Ketones Negative Urine Blood Negative Urine Nitrite Negative Urine Bilirubin Negative Urine Urobilinogen 1.0 Ur Leukocyte Esterase Negative Urine WBC (Auto) 2 Urine RBC (Auto) 2 Urine Casts (Auto) 107 U Pathogenic Cast Auto Negative U Epithel Cells (Auto) 15.9 U Sm Round Cell (Auto) Negative Urine Crystals (Auto) Moderate Urine Bacteria (Auto) Few Blood Type Antibody Screen 01/16/19 01/16/19 01/16/19 06:19 06:19 06:19 WBC 13.6 H RBC 4.16 Hgb 11.2 Hct 35.9 MCV 86.3 MCH 27.0 MCHC 31.3 L RDW 16.9 H Plt Count 368 MPV 8.9 Absolute Neuts (auto) 11.8 H Neutrophils % 86.9 H Lymphocytes % 7.4 L D Monocytes % 5.4 Eosinophils % 0.0 Basophils % 0.3 Nucleated RBC % 0 PT with INR 31.00 H INR 2.60 H PTT (Actin FS) 30.7 Sodium 130 L Potassium 5.0 Chloride 89 L Carbon Dioxide 22 Anion Gap 19 H BUN > 150.0 H* Creatinine 6.6 H Est GFR (CKD-EPI)AfAm 6.03 Est GFR (CKD-EPI)NonAf 5.21 POC Glucometer Random Glucose 87 Calcium 8.6 Phosphorus > 9.0 H* Magnesium 3.0 H Total Bilirubin 1.0 AST 113 H ALT 38 Alkaline Phosphatase 204 H Total Protein 6.0 L Albumin 2.9 L Urine Color Urine Appearance Urine pH Ur Specific [place] Urine Protein Urine Glucose (UA) Urine Ketones Urine Blood Urine Nitrite Urine Bilirubin Urine Urobilinogen Ur Leukocyte Esterase Urine WBC (Auto) Urine RBC (Auto) Urine Casts (Auto) U Pathogenic Cast Auto U Epithel Cells (Auto) U Sm Round Cell (Auto) Urine Crystals (Auto) Urine Bacteria (Auto) Blood Type Antibody Screen 01/16/19 13:53 WBC RBC Hgb Hct MCV MCH MCHC RDW Plt Count MPV Absolute Neuts (auto) Neutrophils % Lymphocytes % Monocytes % Eosinophils % Basophils % Nucleated RBC % PT with INR INR PTT (Actin FS) Sodium Potassium Chloride Carbon Dioxide Anion Gap BUN Creatinine Est GFR (CKD-EPI)AfAm Est GFR (CKD-EPI)NonAf POC Glucometer Random Glucose Calcium Phosphorus Magnesium Total Bilirubin AST ALT Alkaline Phosphatase Total Protein Albumin Urine Color Urine Appearance Urine pH Ur Specific [place] Urine Protein Urine Glucose (UA) Urine Ketones Urine Blood Urine Nitrite Urine Bilirubin Urine Urobilinogen Ur Leukocyte Esterase Urine WBC (Auto) Urine RBC (Auto) Urine Casts (Auto) U Pathogenic Cast Auto U Epithel Cells (Auto) U Sm Round Cell (Auto) Urine Crystals (Auto) Urine Bacteria (Auto) Blood Type O POSITIVE Antibody Screen Negative Active Medications Acetaminophen (Tylenol -) 650 mg PO Q6H PRN PRN Reason: PAIN LEVEL 1-5 Last Admin: 01/15/19 21:21 Dose: 650 mg Albuterol Sulfate (Ventolin 0.083% Nebulizer Soln -) 1 amp NEB Q4H PRN PRN Reason: SHORT OF BREATH/WHEEZING Last Admin: 01/16/19 11:40 Dose: 1 amp Atorvastatin Calcium (Lipitor -) 20 mg PO HS [facility] Last Admin: 01/15/19 21:21 Dose: 20 mg Budesonide/Formoterol Fumarate (Symbicort 80/4.5mcg -) 2 puff IH BID [facility] Last Admin: 01/16/19 11:27 Dose: 2 puff Diltiazem HCl (Cardizem Cd -) 120 mg PO DAILY [facility] Last Admin: 01/16/19 11:26 Dose: 120 mg Sodium Chloride (Normal Saline -) 250 mls @ 3,000 mls/hr IV PRN PRN PRN Reason: Hypotension during Dialysis Stop: 01/17/19 15:31 Metoprolol Succinate (Toprol Xl -) 50 mg PO BID [facility] Last Admin: 01/16/19 11:26 Dose: 50 mg Pantoprazole Sodium (Protonix -) 40 mg PO DAILY [facility] Last Admin: 01/16/19 11:26 Dose: 40 mg Tiotropium [place] (Spiriva Respimat) 2 puff IH DAILY [facility] Last Admin: 01/16/19 11:26 Dose: 2 puff ASSESSMENT/PLAN: 88 year old female with history of CRF on COPD (on home oxygen, 3L), chronic diastolic heart failure, Atrial fibrillation (on Eliquis, s/p PPM), coronary artery disease, hypertension, Chronic LBBB, hyperlipidemia, CKD 4, and Hx CVA, whom presents with shortness of breath worse on exertion, with associated cough. # Acute Hypoxic/Hypercapneic Respiratory Failure 2/2 acute diastolic CHF decompensation due to non-compliance with prescribed Lasix. - Pt reports taking previous home dose of 20 mg Lasix instead of 40mg - Pitting edema worse 2+ today - Urine output only 100 cc over 24 hr and dark - CXR - worsening congestive changes - Elevated BNP - Improved with BiPAP, now comfortable on NC - Continue IV Lasix. - Telemonitoring, I/Os, daily weights. - Cardiology consulted # Atrial fibrillation with RVR - Continue Diltiazem, Metoprolol - HOLD Eliquis: HD catheter placement anticipated # PAULA on CKD 3/CKD 4 - Most likely 2/2 cardiorenal syndrome - Urine output 100 cc - Worsening Cr - Nephrology consulted: Will need HD emergently, HD catheter placement pending, family at bedside in agreement with need for HD - US Bladder/Kidneys pending: renal atrophy, no obstruction - Continue IV lasix diuresis. I/Os. # Abdominal tenderness - Non-specific epigastric pain/tenderness partially relieved by PPI - AST 113 - Abdominal US: Contracted GB with thickened GB wall, withOUT cholelithiasis - Afebrile - Leukocytosis increasing - Monitor for possible cholecystitis - Surgery consulted # HTN - Continue Diltiazem, Metoprolol. - Valsartan held. # HLD - Cont atorvastatin # DM - ISS Novolog # Chronic Respiratory Failure 2/2 COPD/Pulmonary HTN - On Home O2. - Current presentation appears not to be in COPD exacerbation - Cont. bronchodilator nebs, Spiriva. - Received IV Solumedrol in ED, will hold further steroid for now. # F/E/N - No standing fluids - Cont. to monitor electrolytes - Low sodium/diabetic diet # DVT prophylaxis - Eliquis; temporarily held # Disposition - Telemetry Jorge Marshall MD Visit type - Emergency Visit Emergency Visit: No - New Patient This patient is new to me today: No - Critical Care Critical Care patient: No - Discharge Referral Referred to [facility] Med [facility].C[facility] No ATTENDING PHYSICIAN STATEMENT I saw and evaluated the patient. I reviewed the resident's note and discussed the case with the resident. I agree with the resident's findings and plan as documented. SUBJECTIVE: OBJECTIVE: ASSESSMENT AND PLAN:
[2019-01-16] MEDS: ATORVASTATIN CA 20 MG TABLET (FP) PO SCH (22:53)
[2019-01-17] MEDS: BUDESONIDE/FORMETEROL FUMARATE 80/4.5 mcg INHALER IH SCH ×3 (01:40→21:40)
[2019-01-17] MEDS: HALOPERIDOL 0.5 MG TABLET PO ONE ×2 (02:05→08:45)
[2019-01-17] MEDS ORDERED: HALOPERIDOL LACTATE 5 MG/ML IM ONE (02:20)
[2019-01-17] MEDS ORDERED: SODIUM CHLORIDE 250 ML IV PRN (09:54)
--- NOTE | 2019-01-17 09:58 | PN ---
Progress Note (short form) - Note Progress Note: Renal Coverage for Dr. Barrios Seen and examined in the hallway pt remains agigated overnight denies any sob s/p first dialysis yesterday with 2.5L UF will get additional HD today Vital Signs Temperature 98.2 F 01/17/19 07:00 Pulse Rate 115 H 01/17/19 07:00 Respiratory Rate 20 01/17/19 07:00 Blood Pressure 112/77 01/17/19 07:00 O2 Sat by Pulse Oximetry (%) 95 01/16/19 20:20 Intake & Output 01/14/19 01/15/19 01/16/19 01/17/19 23:59 23:59 23:59 23:59 Intake Total 130 770 980 Output Total 20 2925 Balance 130 750 -1945 NAD awake and alert RRR Dec BS + edema in LE CBC, BMP 01/16/19 06:19 01/16/19 06:19 Current Medications Acetaminophen (Tylenol -) 650 mg PO Q6H PRN PRN Reason: PAIN LEVEL 1-5 Last Admin: 01/15/19 21:21 Dose: 650 mg Albuterol Sulfate (Ventolin 0.083% Nebulizer Soln -) 1 amp NEB Q4H PRN PRN Reason: SHORT OF BREATH/WHEEZING Last Admin: 01/16/19 22:40 Dose: 1 amp Atorvastatin Calcium (Lipitor -) 20 mg PO HS [facility] Last Admin: 01/16/19 22:53 Dose: 20 mg Budesonide/Formoterol Fumarate (Symbicort 80/4.5mcg -) 2 puff IH BID [facility] Last Admin: 01/17/19 01:40 Dose: Not Given Diltiazem HCl (Cardizem Cd -) 120 mg PO DAILY [facility] Last Admin: 01/16/19 11:26 Dose: 120 mg Sodium Chloride (Normal Saline -) 250 mls @ 3,000 mls/hr IV PRN PRN PRN Reason: Hypotension during Dialysis Stop: 01/17/19 15:31 Sodium Chloride (Normal Saline -) 250 mls @ 3,000 mls/hr IV PRN PRN PRN Reason: Hypotension during Dialysis Stop: 01/18/19 09:54 Metoprolol Succinate (Toprol Xl -) 50 mg PO BID [facility] Last Admin: 09/13/19 22:53 Dose: 50 mg Pantoprazole Sodium (Protonix -) 40 mg PO DAILY [facility] Last Admin: 01/16/19 11:26 Dose: 40 mg Tiotropium [place] (Spiriva Respimat) 2 puff IH DAILY [facility] Last Admin: 01/16/19 11:26 Dose: 2 puff Impression 1. CKD 2. PAULA 3. COPD 4. asthma 5. dyspnea 6. HTN 7. a-fib 8. CHF 9. CAD will plan for second dialysis today. best have 2.5 hours HD and 1 hour UF. Continue fluid restriction and low salt diet continue diltiazem for HR control dose all meds for CrCl < 10 Sudeep Almanza DO
[2019-01-17] MEDS: ALBUTEROL SO4 0.083% IH SOL 2.5 MG/3 ML VIAL.NEB. NEB PRN (10:25)
[2019-01-17] MEDS: PANTOPRAZOLE 40 MG TABLET (FP) PO SCH ×2 (10:59→17:44)
[2019-01-17] MEDS: TIOTROPIUM BROMIDE 2.5 MCG (SPIRIVA) RESPIMAT INHALER IH SCH (10:59)
[2019-01-17] MEDS: metoPROLOL SUCCINATE 25 MG TAB.SR.24H (FP) PO SCH ×2 (10:59→21:33)
--- NOTE | 2019-01-17 11:41 | PN ---
Teaching Attending Note Name of Resident: Alicia Blair ATTENDING PHYSICIAN STATEMENT I saw and evaluated the patient. I reviewed the resident's note and discussed the case with the resident. I agree with the resident's findings and plan as documented. SUBJECTIVE: Confused, agitated overnight. No nausea/vomiting. No CP/palpitations /fever/chills. OBJECTIVE: Afebrile, Hemodynamically Stable. Delirious. Last Vital Signs Temp Pulse Resp BP Pulse Ox 98.2 F 115 H 20 112/77 95 01/17/19 07:00 01/17/19 07:00 01/17/19 07:00 01/17/19 07:00 01/16/19 20:20 Heart - S1, S2, RRR Lungs - decreased air entry bilaterally, with bibasal crackles. Abdomen - mild distension, no further tenderness today. Bowel sounds normal. Extremities - Pitting edema +. No calf tenderness. Neuro - Delirious. Confused. Tone/Power Normal all 4 extremities. Laboratory Results - last 24 hr 01/16/19 01/17/19 13:53 07:03 POC Glucometer 120 Blood Type O POSITIVE Antibody Screen Negative Current Medications Generic Name Dose Route Start Last Admin Trade Name Freq PRN Reason Stop Dose Admin Acetaminophen 650 mg 01/14/19 16:03 01/15/19 21:21 Tylenol - PO 650 mg Q6H PRN Administration PAIN LEVEL 1-5 Albuterol Sulfate 1 amp 01/14/19 17:48 01/16/19 22:40 Ventolin 0.083% Nebulizer Soln - NEB 1 amp Q4H PRN Administration SHORT OF BREATH/WHEEZING Atorvastatin Calcium 20 mg 01/13/19 22:00 01/16/19 22:53 Lipitor - PO 20 mg HS [facility] Administration Budesonide/Formoterol Fumarate 2 puff 01/15/19 10:00 01/17/19 10:59 Symbicort 80/4.5mcg - IH Not Given BID [facility] Diltiazem HCl 120 mg 01/14/19 10:00 01/17/19 10:59 Cardizem Cd - PO Not Given DAILY [facility] Sodium Chloride 250 mls @ 3,000 mls/hr 01/16/19 15:31 Normal Saline - IV 01/17/19 15:31 PRN PRN Hypotension during Dialysis Sodium Chloride 250 mls @ 3,000 mls/hr 01/17/19 09:54 Normal Saline - IV 01/18/19 09:54 PRN PRN Hypotension during Dialysis Metoprolol Succinate 50 mg 01/13/19 22:00 01/17/19 10:59 Toprol Xl - PO Not Given BID [facility] Pantoprazole Sodium 40 mg 01/14/19 10:00 01/17/19 10:59 Protonix - PO Not Given DAILY [facility] Tiotropium [place] 2 puff 01/14/19 10:00 01/17/19 10:59 Spiriva Respimat IH Not Given DAILY [facility] Home Medications Medication Instructions Recorded Amlodipine Besylate [Norvasc -] 5 mg PO DAILY 05/22/17 Apixaban [Eliquis] 2.5 tab PO BID 05/22/17 Fluticasone/Salmeterol [Advair Hfa 12 gm IH DAILY 05/22/17 230-21 Mcg Inhaler] Lipase/Protease/Amylase [Creon Dr 1 each PO Q8H 05/22/17 36,000 Units Capsule] Metoprolol Succinate 25 mg PO BID 05/22/17 Omeprazole 40 mg PO DAILY 05/22/17 Simvastatin 40 mg PO DAILY 05/22/17 Tiotropium [place] [Spiriva] 2.5 mcg IH BID 05/22/17 Furosemide 40 mg PO DAILY 12/25/18 ASSESSMENT AND PLAN: 88 year old female with history of CRF on COPD (on home oxygen, 3L), chronic diastolic heart failure, Atrial fibrillation (on Eliquis, s/p PPM), coronary artery disease, hypertension, Chronic LBBB, hyperlipidemia, CKD 4, Hx CVA, presents with shortness of breath worse on exertion, with associated cough. No sputum/hemoptysis. 1. Acute Hypoxic/Hypercapneic Respiratory Failure secondary to acute diastolic CHF decompensation due to non-compliance with prescribed Lasix. Pitting edema ++ CXR - worsening congestive changes Elevated BNP Improved with BiPAP, now comfortable on NC IV Lasix ineffectual in promoting diuresis - s/p HD yesterday Plan for further HD today. Continue Telemonitoring, I/Os, daily weights. Cardiology/Nephrology following. 2. PAULA on CKD 3/4 ? sec to cardiorenal syndrome Worsening BUN/creatinine, poor urine output US Kidneys - atrophy, no obstruction s/p HD yesterday via R IJ catheter placed by Surgery. Plan for further HD today. 3. Atrial fibrillation with RVR Continue Diltiazem, Metoprolol Eliquis held for HD catheter insertion. 4. HTN - Continue Diltiazem, Metoprolol. 5. HLD - Continue Atorvastatin 6. CRF sec to COPD/Pulmonary HTN - on Home O2. Appears not to be in COPD exacerbation. Continue Bronchodilator Nebs, Spiriva. Received IV Solumedrol in ED, will hold further steroid for now. 7. Non-specific epigastric pain/tenderness ?gastritis. Continue PPI. AST up to 113 ?due to congestion. Abdominal US - contracted GB with thickened GB wall, without cholelithiasis. Afebrile, but WBC increasing. Will watch for possible cholecystitis. Surgery consulted - recommends CT A/P once able. DVT Px - on Eliquis Awaiting today's labs
[2019-01-17 13:58] LABS: HEMATOCRIT 32.7 % (32.4-45.2); HEMOGLOBIN 10.5 GM/dL (10.7-15.3); LYMPH % 5.2 % (8-40); MCH 27.4 pg (25.7-33.7); MCHC 32.1 g/dl (32.0-36.0); MEAN CELL VOLUME 85.2 fl (80-96); MEAN PLT VOLUME 8.8 fl (7.5-11.1); NEUT % 85.8 % (42.8-82.8); PLATELET COUNT 294 K/MM3 (134-434); RBC 3.84 M/mm3 (3.60-5.2); RDW 17.5 % (11.6-15.6); WHITE BLOOD COUNT 10.2 K/mm3 (4.0-10.0)
[2019-01-17 14:23] LABS: ALBUMIN 3.2 g/dl (3.4-5.0); BILIRUBIN,TOTAL 1.4 mg/dL (0.2-1); BLOOD UREA NITROGEN 102.7 mg/dL (7-18); CALCIUM 8.8 mg/dL (8.5-10.1); CREATININE 5.4 mg/dL (0.55-1.3); MAGNESIUM 2.8 mg/dL (1.8-2.4); PHOSPHOROUS 7.7 mg/dL (2.5-4.9); POTASSIUM 4.7 mmol/L (3.5-5.1); TOT PROT 6.4 g/dl (6.4-8.2)
--- NOTE | 2019-01-17 15:55 | PN ---
Physical Exam: SUBJECTIVE: Patient seen and examined this AM. Agitated, Denies nausea or vomiting but refuses further questioning. OBJECTIVE: Vital Signs Period Temp Pulse Resp BP Sys/Perez Pulse Ox Last 24 Hr 97.4 F-98.6 F 64-115 18-20 94-124/55-81 95-96 GENERAL: A&Ox3, Agitated HEAD: NCAT EYES: EOMI LUNGS: Diminished breath sounds at the bases HEART: Regular rate and rhythm, S1, S2 without murmur ABDOMEN: Soft, nontender, nondistended, + bowel sounds, no guarding, no rebound EXTREMITIES: 1+ pitting edema NEUROLOGICAL: Cranial nerves II through XII grossly intact. Agitated and confused. SKIN: Warm, dry Laboratory Results - last 24 hr 01/16/19 01/17/19 01/17/19 10:40 07:03 13:00 WBC 10.2 H RBC 3.84 Hgb 10.5 L Hct 32.7 MCV 85.2 MCH 27.4 MCHC 32.1 RDW 17.5 H Plt Count 294 D MPV 8.8 Absolute Neuts (auto) 8.8 H Neutrophils % 85.8 H Lymphocytes % 5.2 L D Monocytes % 9.0 Eosinophils % 0.0 Basophils % 0.0 Nucleated RBC % 0 Sodium Potassium Chloride Carbon Dioxide Anion Gap BUN Creatinine Est GFR (CKD-EPI)AfAm Est GFR (CKD-EPI)NonAf POC Glucometer 120 Random Glucose Calcium Phosphorus Magnesium Total Bilirubin AST ALT Alkaline Phosphatase Total Protein Albumin Double Strand DNA Ab <1 01/17/19 13:00 WBC RBC Hgb Hct MCV MCH MCHC RDW Plt Count MPV Absolute Neuts (auto) Neutrophils % Lymphocytes % Monocytes % Eosinophils % Basophils % Nucleated RBC % Sodium 133 L Potassium 4.7 Chloride 92 L Carbon Dioxide 28 Anion Gap 14 BUN 102.7 H Creatinine 5.4 H Est GFR (CKD-EPI)AfAm 7.69 Est GFR (CKD-EPI)NonAf 6.64 POC Glucometer Random Glucose 143 H Calcium 8.8 Phosphorus 7.7 H Magnesium 2.8 H Total Bilirubin 1.4 H AST 158 H ALT 55 Alkaline Phosphatase 195 H Total Protein 6.4 Albumin 3.2 L Double Strand DNA Ab Active Medications Acetaminophen (Tylenol -) 650 mg PO Q6H PRN PRN Reason: PAIN LEVEL 1-5 Last Admin: 01/15/19 21:21 Dose: 650 mg Albuterol Sulfate (Ventolin 0.083% Nebulizer Soln -) 1 amp NEB Q4H PRN PRN Reason: SHORT OF BREATH/WHEEZING Last Admin: 01/17/19 10:25 Dose: 1 amp Apixaban (Eliquis -) 2.5 mg PO BID [facility] Atorvastatin Calcium (Lipitor -) 20 mg PO HS [facility] Last Admin: 01/16/19 22:53 Dose: 20 mg Budesonide/Formoterol Fumarate (Symbicort 80/4.5mcg -) 2 puff IH BID [facility] Last Admin: 01/17/19 10:59 Dose: Not Given Diltiazem HCl (Cardizem Cd -) 120 mg PO DAILY [facility] Last Admin: 01/17/19 10:59 Dose: Not Given Sodium Chloride (Normal Saline -) 250 mls @ 3,000 mls/hr IV PRN PRN PRN Reason: Hypotension during Dialysis Stop: 01/17/19 15:31 Sodium Chloride (Normal Saline -) 250 mls @ 3,000 mls/hr IV PRN PRN PRN Reason: Hypotension during Dialysis Stop: 01/18/19 09:54 Metoprolol Succinate (Toprol Xl -) 50 mg PO BID [facility] Last Admin: 01/17/19 10:59 Dose: Not Given Pantoprazole Sodium (Protonix -) 40 mg PO DAILY [facility] Last Admin: 01/17/19 10:59 Dose: Not Given Tiotropium [place] (Spiriva Respimat) 2 puff IH DAILY [facility] Last Admin: 01/17/19 10:59 Dose: Not Given ASSESSMENT/PLAN: 88 y/o F with PMHx of COPD (on 3L home O2), Diastolic CHF, AFib (s/p PPM on Eliquis), CAD, HTN, HLD, CKD 4, CVA, who presents with SOB + nonproductive cough. #Acute Hypoxic Hypercapneic Respiratory Failure -Due to acute CHF exacerbation in the setting of diuretic noncompliance -Refuses Bipap overnight -S/P HD yesterday; plan for HD today as well -Continue IV Furosemide although output of 350 ccs overnight is minimal -Tele -Strict I&Os, daily weights -Cardiology, Nephrology consulted, appreciate rec's #AFib, Controlled -Continue Diltiazem, Metoprolol, DOAC #Acute on CKD s/p catheter placement with HD x 2 sessions -[place] due to cardiorenal syndrome with worsening Cr and minimal urine output -Nephrology consulted #HTN -Continue Diltiazem, Metoprolol. #HLD -Statin #DM -BGMs ISS ACHS #COPD -Currently not in exacerbation -On Home O2; continue supplemental O2 to maintain SpO2 88-92% -Continue home dose Bronchodilators #FEN -No standing fluids -Replete Lytes PRN -Renal Diet #PPx -DVT: DOAC Dispo: Monitor on Tele Visit type - Emergency Visit Emergency Visit: Yes ED Registration Date: 01/13/19 Care time: The patient presented to the Emergency Department on the above date and was hospitalized for further evaluation of their emergent condition. - New Patient This patient is new to me today: Yes Date on this admission: 01/17/19 - Critical Care Critical Care patient: No ATTENDING PHYSICIAN STATEMENT I saw and evaluated the patient. I reviewed the resident's note and discussed the case with the resident. I agree with the resident's findings and plan as documented. SUBJECTIVE: OBJECTIVE: ASSESSMENT AND PLAN:
[2019-01-17 20:07] LABS: HEP B CORE AB, TOT Negative (Negative)
[2019-01-17] MEDS: ATORVASTATIN CA 20 MG TABLET (FP) PO SCH (21:33)
[2019-01-17] MEDS: APIXABAN 2.5 MG TABLET PO SCH (21:33)
[2019-01-18] MEDS: ALBUTEROL SO4 0.083% IH SOL 2.5 MG/3 ML VIAL.NEB. NEB PRN (00:15)
[2019-01-18] MEDS: APIXABAN 2.5 MG TABLET PO SCH ×2 (10:01→23:09)
[2019-01-18] MEDS: TIOTROPIUM BROMIDE 2.5 MCG (SPIRIVA) RESPIMAT INHALER IH SCH (10:01)
[2019-01-18] MEDS: PANTOPRAZOLE 40 MG TABLET (FP) PO SCH (10:01)
[2019-01-18] MEDS: BUDESONIDE/FORMETEROL FUMARATE 80/4.5 mcg INHALER IH SCH ×2 (10:02→23:09)
[2019-01-18] MEDS: metoPROLOL SUCCINATE 25 MG TAB.SR.24H (FP) PO SCH ×2 (10:02→23:09)
[2019-01-18] MEDS ORDERED: SODIUM CHLORIDE 250 ML IV PRN (12:05)
--- NOTE | 2019-01-18 12:05 | PN ---
Progress Note (short form) - Note Progress Note: Renal Coverage for Dr. Barrios Seen and examined at the bedside lethargic, sleeping. family at the bedside reports continued confusion no overnight events Vital Signs Temperature 98 F 01/18/19 01:19 Pulse Rate 94 H 01/18/19 01:19 Respiratory Rate 20 01/18/19 01:19 Blood Pressure 111/64 01/18/19 01:19 O2 Sat by Pulse Oximetry (%) 91 L 01/17/19 21:00 Intake & Output 01/15/19 01/16/19 01/17/19 01/18/19 23:59 23:59 23:59 23:59 Intake Total 770 980 300 200 Output Total 20 2925 500 Balance 750 -1945 -200 200 NAD awake and alert RRR Dec BS + edema in LE CBC, BMP 01/17/19 13:00 01/17/19 13:00 Current Medications Acetaminophen (Tylenol -) 650 mg PO Q6H PRN PRN Reason: PAIN LEVEL 1-5 Last Admin: 01/15/19 21:21 Dose: 650 mg Albuterol Sulfate (Ventolin 0.083% Nebulizer Soln -) 1 amp NEB Q4H PRN PRN Reason: SHORT OF BREATH/WHEEZING Last Admin: 01/18/19 00:15 Dose: 1 amp Apixaban (Eliquis -) 2.5 mg PO BID [facility] Last Admin: 01/18/19 10:01 Dose: Not Given Atorvastatin Calcium (Lipitor -) 20 mg PO HS [facility] Last Admin: 01/17/19 21:33 Dose: 20 mg Budesonide/Formoterol Fumarate (Symbicort 80/4.5mcg -) 2 puff IH BID [facility] Last Admin: 01/18/19 10:02 Dose: Not Given Diltiazem HCl (Cardizem Cd -) 120 mg PO DAILY [facility] Last Admin: 01/18/19 10:01 Dose: Not Given Sodium Chloride (Normal Saline -) 250 mls @ 3,000 mls/hr IV PRN PRN PRN Reason: Hypotension during Dialysis Stop: 01/17/19 15:31 Sodium Chloride (Normal Saline -) 250 mls @ 3,000 mls/hr IV PRN PRN PRN Reason: Hypotension during Dialysis Stop: 01/18/19 09:54 Metoprolol Succinate (Toprol Xl -) 50 mg PO BID [facility] Last Admin: 01/18/19 10:02 Dose: Not Given Pantoprazole Sodium (Protonix -) 40 mg PO DAILY [facility] Last Admin: 01/18/19 10:01 Dose: Not Given Tiotropium [place] (Spiriva Respimat) 2 puff IH DAILY [facility] Last Admin: 01/18/19 10:01 Dose: Not Given Impression 1. CKD 2. PAULA 3. COPD 4. asthma 5. dyspnea 6. HTN 7. a-fib 8. CHF 9. CAD no acute need for DUST MIXER today, will plan for next dialysis in AM BUN remains elevated and likely indicates mild uremia as contributor to AMS Renal diet and 1.2L fluid restriction dose all meds for CrCl < 10 Sudeep Almanza DO
--- NOTE | 2019-01-18 15:04 | PN ---
Progress Note (short form) - Note Progress Note: SUBJECTIVE: Unable to participate in medical interview due to confusion. No nausea/vomiting. No CP/palpitations/fever/chills. OBJECTIVE: Afebrile, Hemodynamically Stable. Delirious. Confused, lethargic, less combative. Last Vital Signs Temp Pulse Resp BP Pulse Ox 98 F 94 H 20 111/64 91 L 01/18/19 01:19 01/18/19 01:19 01/18/19 01:01/18/19 01:01/17/19 21:00 Heart - S1, S2, RRR Lungs - decreased air entry bilaterally, with bibasal crackles. Abdomen - mild distension, soft. Bowel sounds normal. Extremities - Pitting edema +. No calf tenderness. Neuro - Delirious. Confused. Less agitated. Tone/Power Normal all 4 extremities. Laboratory Results - last 24 hr 01/16/19 10:40 ALISA Screen Negative Double Strand DNA Ab <1 Hep A IgM Ab Confirm Negative Hepatitis A Ab Total Positive H Hep Bs Antigen Negative Hep Bs Antibody Non reactive Hep B Core Total Ab Negative Hep B Core IgM Ab Negative Hepatitis Be Antibody Negative Hepatitis Be Antigen Negative Current Medications Generic Name Dose Route Start Last Admin Trade Name Freq PRN Reason Stop Dose Admin Acetaminophen 650 mg 01/14/19 16:03 01/15/19 21:21 Tylenol - PO 650 mg Q6H PRN Administration PAIN LEVEL 1-5 Albuterol Sulfate 1 amp 01/14/19 17:48 01/18/19 00:15 Ventolin 0.083% Nebulizer Soln - NEB 1 amp Q4H PRN Administration SHORT OF BREATH/WHEEZING Apixaban 2.5 mg 01/17/19 22:00 01/18/19 10:01 Eliquis - PO Not Given BID KESHAWN Atorvastatin Calcium 20 mg 01/13/19 22:00 01/17/19 21:33 Lipitor - PO 20 mg HS KESHAWN Administration Budesonide/Formoterol Fumarate 2 puff 01/15/19 10:00 01/18/19 10:02 Symbicort 80/4.5mcg - IH Not Given BID KESHAWN Diltiazem HCl 120 mg 01/14/19 10:00 01/18/19 10:01 Cardizem Cd - PO Not Given DAILY KESHAWN Sodium Chloride 250 mls @ 3,000 mls/hr 01/16/19 15:31 Normal Saline - IV 01/17/19 15:31 PRN PRN Hypotension during Dialysis Sodium Chloride 250 mls @ 3,000 mls/hr 01/17/19 09:54 Normal Saline - IV 01/18/19 09:54 PRN PRN Hypotension during Dialysis Sodium Chloride 250 mls @ 3,000 mls/hr 01/18/19 12:05 Normal Saline - IV 01/19/19 12:05 PRN PRN Hypotension during Dialysis Metoprolol Succinate 50 mg 01/13/19 22:00 01/18/19 10:02 Toprol Xl - PO Not Given BID KESHAWN Pantoprazole Sodium 40 mg 01/14/19 10:00 01/18/19 10:01 Protonix - PO Not Given DAILY KESHAWN Tiotropium [place] 2 puff 01/14/19 10:00 01/18/19 10:01 Spiriva Respimat IH Not Given DAILY [facility] Home Medications Medication Instructions Recorded Amlodipine Besylate [Norvasc -] 5 mg PO DAILY 05/22/17 Apixaban [Eliquis] 2.5 tab PO BID 05/22/17 Fluticasone/Salmeterol [Advair Hfa 12 gm IH DAILY 05/22/17 230-21 Mcg Inhaler] Lipase/Protease/Amylase [Creon Dr 1 each PO Q8H 05/22/17 36,000 Units Capsule] Metoprolol Succinate 25 mg PO BID 05/22/17 Omeprazole 40 mg PO DAILY 05/22/17 Simvastatin 40 mg PO DAILY 05/22/17 Tiotropium [place] [Spiriva] 2.5 mcg IH BID 05/22/17 Furosemide 40 mg PO DAILY 12/25/18 ASSESSMENT AND PLAN: 88 year old female with history of CRF on COPD (on home oxygen, 3L), chronic diastolic heart failure, Atrial fibrillation (on Eliquis, s/p PPM), coronary artery disease, hypertension, Chronic LBBB, hyperlipidemia, CKD 4, Hx CVA, presents with shortness of breath worse on exertion, with associated cough. No sputum/hemoptysis. 1. Acute Hypoxic/Hypercapneic Respiratory Failure secondary to acute diastolic CHF decompensation due to non-compliance with prescribed Lasix. Pitting edema ++ CXR - worsening congestive changes Elevated BNP Respiratory status improved with BiPAP, now comfortable on NC IV Lasix ineffectual in promoting diuresis - initiated on HD 01/16 and 01/17 with some improvement in fluid status and respiratory function. Continue Telemonitoring, I/Os, daily weights. Cardiology/Nephrology following. 2. Acute Delirium secondary to uremia due to PAULA on CKD 3/4 ? sec to cardiorenal syndrome BUN > 100 Urine output remains poor. US Kidneys - atrophy, no obstruction s/p HD 01/16 and 01/17 via R IJ catheter placed by Surgery. Plan for further HD 01/19 Nephrology following. 3. Atrial fibrillation with RVR Continue Diltiazem, Metoprolol Eliquis resumed after HD catheter insertion. 4. HTN - Continue Diltiazem, Metoprolol. 5. HLD - Continue Atorvastatin 6. CRF sec to COPD/Pulmonary HTN - on Home O2. Appears not to be in COPD exacerbation. Continue Bronchodilator Nebs, Spiriva. Received IV Solumedrol in ED, will hold further steroid for now. 7. Non-specific epigastric pain/tenderness ?gastritis. Continue PPI. AST up to 158 ?due to congestion. Abdominal US - contracted GB with thickened GB wall, without cholelithiasis. Afebrile, but WBC increasing. Will watch for possible cholecystitis. Surgery consulted - recommends CT A/P once able/stable. DVT Px - on Eliquis Visit type - Emergency Visit Emergency Visit: Yes ED Registration Date: 01/13/19 Care time: The patient presented to the Emergency Department on the above date and was hospitalized for further evaluation of their emergent condition. - New Patient This patient is new to me today: No - Critical Care Critical Care patient: No - Discharge Referral Referred to [facility] Med P.C.: No
--- NOTE | 2019-01-18 16:41 | PN ---
Progress Note, Physician History of Present Illness: Volume status improved after HD, urine output increasing, confused due to uremia , refuses telemetry. - Current Medication List Current Medications: Active Medications Acetaminophen (Tylenol -) 650 mg PO Q6H PRN PRN Reason: PAIN LEVEL 1-5 Last Admin: 01/15/19 21:21 Dose: 650 mg Albuterol Sulfate (Ventolin 0.083% Nebulizer Soln -) 1 amp NEB Q4H PRN PRN Reason: SHORT OF BREATH/WHEEZING Last Admin: 01/18/19 00:15 Dose: 1 amp Apixaban (Eliquis -) 2.5 mg PO BID [facility] Last Admin: 01/18/19 10:01 Dose: Not Given Atorvastatin Calcium (Lipitor -) 20 mg PO HS [facility] Last Admin: 01/17/19 21:33 Dose: 20 mg Budesonide/Formoterol Fumarate (Symbicort 80/4.5mcg -) 2 puff IH BID [facility] Last Admin: 01/18/19 10:02 Dose: Not Given Diltiazem HCl (Cardizem Cd -) 120 mg PO DAILY [facility] Last Admin: 01/18/19 10:01 Dose: Not Given Sodium Chloride (Normal Saline -) 250 mls @ 3,000 mls/hr IV PRN PRN PRN Reason: Hypotension during Dialysis Stop: 01/17/19 15:31 Sodium Chloride (Normal Saline -) 250 mls @ 3,000 mls/hr IV PRN PRN PRN Reason: Hypotension during Dialysis Stop: 01/18/19 09:54 Sodium Chloride (Normal Saline -) 250 mls @ 3,000 mls/hr IV PRN PRN PRN Reason: Hypotension during Dialysis Stop: 01/19/19 12:05 Metoprolol Succinate (Toprol Xl -) 50 mg PO BID [facility] Last Admin: 01/18/19 10:02 Dose: Not Given Pantoprazole Sodium (Protonix -) 40 mg PO DAILY [facility] Last Admin: 01/18/19 10:01 Dose: Not Given Tiotropium [place] (Spiriva Respimat) 2 puff IH DAILY [facility] Last Admin: 01/18/19 10:01 Dose: Not Given - Objective Vital Signs: Vital Signs Temperature 98 F 01/18/19 12:05 Pulse Rate 96 H 01/18/19 12:05 Respiratory Rate 20 01/18/19 12:05 Blood Pressure 132/77 01/18/19 12:05 O2 Sat by Pulse Oximetry (%) 90 L 01/18/19 12:05 Constitutional: Yes: No Distress, Calm Neck: Yes: Supple Cardiovascular: Yes: Pulse Irregular Respiratory: Yes: Regular, Diminished, On Nasal O2 Gastrointestinal: Yes: Soft, Hypoactive Bowel Sounds Edema: No Labs: CBC, BMP 01/17/19 13:00 01/17/19 13:00 INR, PTT INR 2.60 (0.83-1.09) H 01/16/19 06:19 Problem List - Problems (1) [id number] kidney injury Code(s): N17.9 - ACUTE KIDNEY FAILURE, UNSPECIFIED; N18.9 - CHRONIC KIDNEY DISEASE, UNSPECIFIED Qualifiers: Chronic kidney disease stage: stage 4 (severe) (2) Acute on chronic diastolic CHF (congestive heart failure) Code(s): I50.33 - ACUTE ON CHRONIC DIASTOLIC (CONGESTIVE) HEART FAILURE (3) Acute on chronic respiratory failure with hypoxia and hypercapnia Code(s): J96.21 - ACUTE AND CHRONIC RESPIRATORY FAILURE WITH HYPOXIA; J96.22 - ACUTE AND CHRONIC RESPIRATORY FAILURE WITH HYPERCAPNIA (4) Atrial fibrillation with rapid ventricular response Code(s): I48.91 - UNSPECIFIED ATRIAL FIBRILLATION (5) Chronic anticoagulation Code(s): Z79.01 - 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) USE OF ANTICOAGULANTS (6) FRYE (dyspnea on exertion) Code(s): R06.09 - OTHER FORMS OF DYSPNEA (7) Hyperlipidemia Code(s): E78.5 - HYPERLIPIDEMIA, UNSPECIFIED Qualifiers: Hyperlipidemia type: pure hypercholesterolemia Qualified Code(s): E78.00 - Pure hypercholesterolemia, unspecified; E78.0 - Pure hypercholesterolemia (8) Pulmonary HTN Code(s): I27.20 - PULMONARY HYPERTENSION, UNSPECIFIED (9) Sleep apnea Code(s): G47.30 - SLEEP APNEA, UNSPECIFIED (10) Toxic metabolic encephalopathy Code(s): G92 - TOXIC ENCEPHALOPATHY Assessment/Plan 01/16/2019 Renal US: atrophic kidneys no hydro 12/25/2018 Echo: Normal LV and RV size and fxn, mod MR, TR RVSP 30-40 mmHg, mild 12/31/2018 Normal renal US 11/03/2018 Echo: Normal LV size and fxn LVEF 55-60%, grade II DD, mild-mod TR RVSP 44 mmHg, mild-mod MG 12 mmHg 11/03/[address]: Emphysema, ILD, pulm HTN 08/16/2015 Echo: Normal LV size with mild cLVH, mod-severe decreased LVEF, mod TR , mild MR, HI 03/09/2015 P=Myoview: No ischemia, LVEF 51% 1. Toxic metabolic encephelopathy due to uremia 2. Acute on chronic hypercapneic, hypoxemic respiratory failure referable to 3. Acute on chronic LV diastolic failure with h/o resolved cardiomyopathy in context of 4. Paroxysmal atrial fibrillation with rapid ventricular response [id number] score of 7-8 now on NOAC 5. 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 CAD negative MPI study for myocardial ischemia 03/09/2015 7. Post pacemaker 8. HTN 9. Hypercholesterolemia 10. History of CVA 11. Acute on CKD due to hemodynamic alterations on HD 12. Hyponatremia PLAN: 1. Volume removal via HD per renal with monitor urine output, renal fxn and electrolytes 2. Continue metoprolol 50 bid and Cardizem CD 120 qd with IV Cardizem or Lopressor as needed for rate-control, continue Lipitor 20 qhs, Eliquis 2.5 bid, resume Diovan as hemodynamics tolerate once renal fxn at baseline 3. BD, O2, Bipap as needed, observe off steroids and abx 4. Care d/w family
[2019-01-18] MEDS: ATORVASTATIN CA 20 MG TABLET (FP) PO SCH (23:09)
[2019-01-19 08:57] LABS: HEMATOCRIT 34.2 % (32.4-45.2); HEMOGLOBIN 10.8 GM/dL (10.7-15.3); MCHC 31.6 g/dl (32.0-36.0); MEAN CELL VOLUME 85.3 fl (80-96); MEAN PLT VOLUME 8.3 fl (7.5-11.1); PLATELET COUNT 281 K/MM3 (134-434); RBC 4.01 M/mm3 (3.60-5.2); RDW 17.5 % (11.6-15.6); WHITE BLOOD COUNT 10.5 K/mm3 (4.0-10.0)
[2019-01-19] MEDS ORDERED: PT OWN MED DRAWER 7, Y5N ONE (09:22)
[2019-01-19 09:30] LABS: CALCIUM 9.1 mg/dL (8.5-10.1); CREATININE 3.9 mg/dL (0.55-1.3); POTASSIUM 3.7 mmol/L (3.5-5.1)
[2019-01-19] MEDS: PANTOPRAZOLE 40 MG TABLET (FP) PO SCH (09:47)
--- NOTE | 2019-01-19 11:23 | PN ---
Progress Note, Physician History of Present Illness: Volume status improved after HD most recently this AM, urine output increasing, sensorium and uremia improving, refuses meds now. - Current Medication List Current Medications: Active Medications Acetaminophen (Tylenol -) 650 mg PO Q6H PRN PRN Reason: PAIN LEVEL 1-5 Last Admin: 01/15/19 21:21 Dose: 650 mg Albuterol Sulfate (Ventolin 0.083% Nebulizer Soln -) 1 amp NEB Q4H PRN PRN Reason: SHORT OF BREATH/WHEEZING Last Admin: 01/18/19 00:15 Dose: 1 amp Apixaban (Eliquis -) 2.5 mg PO BID [facility] Last Admin: 01/18/19 23:09 Dose: Not Given Atorvastatin Calcium (Lipitor -) 20 mg PO HS [facility] Last Admin: 01/18/19 23:09 Dose: Not Given Budesonide/Formoterol Fumarate (Symbicort 80/4.5mcg -) 2 puff IH BID [facility] Last Admin: 01/18/19 23:09 Dose: Not Given Diltiazem HCl (Cardizem Cd -) 120 mg PO DAILY [facility] Last Admin: 01/18/19 10:01 Dose: Not Given Sodium Chloride (Normal Saline -) 250 mls @ 3,000 mls/hr IV PRN PRN PRN Reason: Hypotension during Dialysis Stop: 01/17/19 15:31 Sodium Chloride (Normal Saline -) 250 mls @ 3,000 mls/hr IV PRN PRN PRN Reason: Hypotension during Dialysis Stop: 01/18/19 09:54 Sodium Chloride (Normal Saline -) 250 mls @ 3,000 mls/hr IV PRN PRN PRN Reason: Hypotension during Dialysis Stop: 01/19/19 12:05 Metoprolol Succinate (Toprol Xl -) 50 mg PO BID [facility] Last Admin: 01/18/19 23:09 Dose: Not Given Pantoprazole Sodium (Protonix -) 40 mg PO DAILY [facility] Last Admin: 01/19/19 09:47 Dose: 40 mg Tiotropium [place] (Spiriva Respimat) 2 puff IH DAILY [facility] Last Admin: 01/18/19 10:01 Dose: Not Given - Objective Vital Signs: Vital Signs Temperature 98 F 01/19/19 04:49 Pulse Rate 91 H 01/19/19 11:10 Respiratory Rate 16 09/16/19 10:00 Blood Pressure 114/87 01/19/19 10:00 O2 Sat by Pulse Oximetry (%) 96 01/19/19 11:10 Constitutional: Yes: No Distress, Calm Neck: Yes: Supple Cardiovascular: Yes: Pulse Irregular Respiratory: Yes: Regular, Diminished, On Nasal O2 Gastrointestinal: Yes: Soft, Hypoactive Bowel Sounds Edema: No Labs: CBC, BMP 01/19/19 07:30 01/19/19 07:30 INR, PTT INR 2.60 (0.83-1.09) H 01/16/19 06:19 - ....Imaging EKG: Report Reviewed (Tele: [employer] v-paced) Problem List - Problems (1) [id number] kidney injury Code(s): N17.9 - ACUTE KIDNEY FAILURE, UNSPECIFIED; N18.9 - CHRONIC KIDNEY DISEASE, UNSPECIFIED Qualifiers: Chronic kidney disease stage: stage 4 (severe) (2) Acute on chronic diastolic CHF (congestive heart failure) Code(s): I50.33 - ACUTE ON CHRONIC DIASTOLIC (CONGESTIVE) HEART FAILURE (3) Acute on chronic respiratory failure with hypoxia and hypercapnia Code(s): J96.21 - ACUTE AND CHRONIC RESPIRATORY FAILURE WITH HYPOXIA; J96.22 - ACUTE AND CHRONIC RESPIRATORY FAILURE WITH HYPERCAPNIA (4) Atrial fibrillation with rapid ventricular response Code(s): I48.91 - UNSPECIFIED ATRIAL FIBRILLATION (5) Chronic anticoagulation Code(s): Z79.01 - NURSING HOME (CURRENT) USE OF ANTICOAGULANTS (6) FRYE (dyspnea on exertion) Code(s): R06.09 - OTHER FORMS OF DYSPNEA (7) Hyperlipidemia Code(s): E78.5 - HYPERLIPIDEMIA, UNSPECIFIED Qualifiers: Hyperlipidemia type: pure hypercholesterolemia Qualified Code(s): E78.00 - Pure hypercholesterolemia, unspecified; E78.0 - Pure hypercholesterolemia (8) Pulmonary HTN Code(s): I27.20 - PULMONARY HYPERTENSION, UNSPECIFIED (9) Sleep apnea Code(s): G47.30 - SLEEP APNEA, UNSPECIFIED (10) Toxic metabolic encephalopathy Code(s): G92 - TOXIC ENCEPHALOPATHY Assessment/Plan 01/16/2019 Renal US: atrophic kidneys no hydro 12/25/2018 Echo: Normal LV and RV size and fxn, mod MR, TR RVSP 30-40 mmHg, mild 12/31/2018 Normal renal US 11/03/2018 Echo: Normal LV size and fxn LVEF 55-60%, grade II DD, mild-mod TR RVSP 44 mmHg, mild-mod MG 12 mmHg 11/03/[address]: Emphysema, ILD, pulm HTN 08/16/2015 Echo: Normal LV size with mild cLVH, mod-severe decreased LVEF, mod TR , mild MR, AR 03/09/2015 P=Myoview: No ischemia, LVEF 51% 1. Toxic metabolic encephelopathy due to uremia 2. Acute on chronic hypercapneic, hypoxemic respiratory failure referable to 3. Acute on chronic LV diastolic failure with h/o resolved cardiomyopathy in context of 4. Paroxysmal atrial fibrillation with rapid ventricular response [id number] score of 7-8 now on NOAC 5. 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 CAD negative MPI study for myocardial ischemia 03/09/2015 7. Post pacemaker 8. HTN 9. Hypercholesterolemia 10. History of CVA 11. Acute on CKD due to hemodynamic alterations on HD 12. Hyponatremia PLAN: 1. Volume removal via HD per renal with monitor urine output, renal fxn and electrolytes 2. Continue metoprolol 50 bid and Cardizem CD 120 qd with IV Cardizem or Lopressor as needed for rate-control, continue Lipitor 20 qhs, Eliquis 2.5 bid, resume Diovan as hemodynamics tolerate once renal fxn at baseline 3. BD, O2, Bipap as needed, observe off steroids and abx 4. Care d/w family
[2019-01-19] MEDS: APIXABAN 2.5 MG TABLET PO SCH ×3 (11:26→23:35)
[2019-01-19] MEDS: TIOTROPIUM BROMIDE 2.5 MCG (SPIRIVA) RESPIMAT INHALER IH SCH (11:26)
[2019-01-19] MEDS: BUDESONIDE/FORMETEROL FUMARATE 80/4.5 mcg INHALER IH SCH ×2 (11:26→23:35)
[2019-01-19] MEDS: metoPROLOL SUCCINATE 25 MG TAB.SR.24H (FP) PO SCH ×3 (11:26→23:35)
--- NOTE | 2019-01-19 12:22 | PN ---
Progress Note, Physician History of Present Illness: Pt seen and examined at bedside. She is awake but confused. She feels breathing is improved. Family are at bedside. - Current Medication List Current Medications: Active Medications Acetaminophen (Tylenol -) 650 mg PO Q6H PRN PRN Reason: PAIN LEVEL 1-5 Last Admin: 01/15/19 21:21 Dose: 650 mg Albuterol Sulfate (Ventolin 0.083% Nebulizer Soln -) 1 amp NEB Q4H PRN PRN Reason: SHORT OF BREATH/WHEEZING Last Admin: 01/18/19 00:15 Dose: 1 amp Apixaban (Eliquis -) 2.5 mg PO BID [facility] Last Admin: 01/19/19 11:26 Dose: Not Given Atorvastatin Calcium (Lipitor -) 20 mg PO HS [facility] Last Admin: 01/18/19 23:09 Dose: Not Given Budesonide/Formoterol Fumarate (Symbicort 80/4.5mcg -) 2 puff IH BID [facility] Last Admin: 01/19/19 11:26 Dose: Not Given Diltiazem HCl (Cardizem Cd -) 120 mg PO DAILY [facility] Last Admin: 01/19/19 11:27 Dose: Not Given Sodium Chloride (Normal Saline -) 250 mls @ 3,000 mls/hr IV PRN PRN PRN Reason: Hypotension during Dialysis Stop: 01/17/19 15:31 Sodium Chloride (Normal Saline -) 250 mls @ 3,000 mls/hr IV PRN PRN PRN Reason: Hypotension during Dialysis Stop: 01/18/19 09:54 Sodium Chloride (Normal Saline -) 250 mls @ 3,000 mls/hr IV PRN PRN PRN Reason: Hypotension during Dialysis Stop: 01/19/19 12:05 Metoprolol Succinate (Toprol Xl -) 50 mg PO BID [facility] Last Admin: 01/19/19 11:26 Dose: Not Given Pantoprazole Sodium (Protonix -) 40 mg PO DAILY [facility] Last Admin: 01/19/19 09:47 Dose: 40 mg Tiotropium [place] (Spiriva Respimat) 2 puff IH DAILY [facility] Last Admin: 01/19/19 11:26 Dose: Not Given - Objective Vital Signs: Vital Signs Temperature 98 F 01/19/19 04:49 Pulse Rate 104 H 09/16/19 11:15 Respiratory Rate 16 01/19/19 11:15 Blood Pressure 129/82 01/19/19 11:15 O2 Sat by Pulse Oximetry (%) 96 01/19/19 11:10 Constitutional: Yes: Calm Eyes: Yes: Conjunctiva Clear HENT: Yes: Atraumatic Neck: Yes: Supple Cardiovascular: Yes: S1, S2 Respiratory: Yes: On Nasal O2 Gastrointestinal: Yes: Soft, Abdomen, Obese Genitourinary: Yes: [place]stein Present, Other (urine output is improved) Musculoskeletal: Yes: WNL Edema: LLE: Trace, RLE: Trace Neurological: Yes: Confusion Labs: CBC, BMP 01/19/19 07:30 01/19/19 07:30 INR, PTT INR 2.60 (0.83-1.09) H 01/16/19 06:19 Problem List - Problems (1) [id number] kidney injury Code(s): N17.9 - ACUTE KIDNEY FAILURE, UNSPECIFIED; N18.9 - CHRONIC KIDNEY DISEASE, UNSPECIFIED Qualifiers: Chronic kidney disease stage: stage 4 (severe) (2) CHF exacerbation Code(s): I50.9 - HEART FAILURE, UNSPECIFIED Qualifiers: Heart failure type: unspecified Qualified Code(s): I50.9 - Heart failure, unspecified (3) COPD exacerbation Code(s): J44.1 - CHRONIC OBSTRUCTIVE PULMONARY DISEASE W (ACUTE) EXACERBATION Assessment/Plan Current Medications Generic Name Dose Route Start Last Admin Trade Name Freq PRN Reason Stop Dose Admin Acetaminophen 650 mg 01/14/19 16:03 01/15/19 21:21 Tylenol - PO 650 mg Q6H PRN Administration PAIN LEVEL 1-5 Albuterol Sulfate 1 amp 01/14/19 17:48 01/18/19 00:15 Ventolin 0.083% Nebulizer Soln - NEB 1 amp Q4H PRN Administration SHORT OF BREATH/WHEEZING Apixaban 2.5 mg 01/17/19 22:00 01/19/19 11:26 Eliquis - PO Not Given BID KESHAWN Atorvastatin Calcium 20 mg 01/13/19 22:00 01/18/19 23:09 Lipitor - PO Not Given HS KESHAWN Budesonide/Formoterol Fumarate 2 puff 01/15/19 10:00 01/19/19 11:26 Symbicort 80/4.5mcg - IH Not Given BID KESHAWN Diltiazem HCl 120 mg 01/14/19 10:00 01/19/19 11:27 Cardizem Cd - PO Not Given DAILY KESHAWN Sodium Chloride 250 mls @ 3,000 mls/hr 01/16/19 15:31 Normal Saline - IV 01/17/19 15:31 PRN PRN Hypotension during Dialysis Sodium Chloride 250 mls @ 3,000 mls/hr 01/17/19 09:54 Normal Saline - IV 01/18/19 09:54 PRN PRN Hypotension during Dialysis Sodium Chloride 250 mls @ 3,000 mls/hr 01/18/19 12:05 Normal Saline - IV 01/19/19 12:05 PRN PRN Hypotension during Dialysis Metoprolol Succinate 50 mg 01/13/19 22:00 01/19/19 11:26 Toprol Xl - PO Not Given BID KESHAWN Pantoprazole Sodium 40 mg 01/14/19 10:00 01/19/19 09:47 Protonix - PO 40 mg DAILY [facility] Administration Tiotropium [place] 2 puff 01/14/19 10:00 01/19/19 11:26 Spiriva Respimat IH Not Given DAILY KESHAWN Impression 1. CKD 2. PAULA 3. COPD 4. asthma 5. dyspnea 6. HTN 7. a-fib 8. CHF 9. CAD Plan - follow serologies - HD today - urine output is improving - repeat labs in am - am cxr - cont to monitor urine output - check phos - renal diet for now - avoid nsaids
--- NOTE | 2019-01-19 14:58 | PN ---
Teaching Attending Note Name of Resident: Jorge Marshall ATTENDING PHYSICIAN STATEMENT I saw and evaluated the patient. I reviewed the resident's note and discussed the case with the resident. I agree with the resident's findings and plan as documented. SUBJECTIVE: Unable to participate in medical interview due to confusion. No nausea/vomiting. No CP/palpitations/fever/chills. OBJECTIVE: Afebrile, Hemodynamically Stable. Less delirious, still confused, less combative. Producing urine. Last Vital Signs Temp Pulse Resp BP Pulse Ox 98 F 104 H 16 129/82 96 01/19/19 04:49 01/19/19 11:15 01/19/19 11:15 01/19/19 11:15 01/19/19 11:10 Heart - S1, S2, RRR Lungs - decreased air entry bilaterally, with bibasal crackles. Abdomen - mild distension, soft. Bowel sounds normal. Extremities - Pitting edema +. No calf tenderness. Neuro - Less Delirious. Still Confused. Less agitated. Tone/Power Normal all 4 extremities. Laboratory Results - last 24 hr 01/18/19 01/19/19 01/19/19 22:40 05:21 07:30 WBC RBC Hgb Hct MCV MCH MCHC RDW Plt Count MPV Sodium 137 Potassium 3.7 Chloride 96 L Carbon Dioxide 32 Anion Gap 9 BUN 63.0 H Creatinine 3.9 H Est GFR (CKD-EPI)AfAm 11.40 Est GFR (CKD-EPI)NonAf 9.83 POC Glucometer 80 141 Random Glucose 140 H Calcium 9.1 01/19/19 07:30 WBC 10.5 H RBC 4.01 Hgb 10.8 Hct 34.2 MCV 85.3 MCH 27.0 MCHC 31.6 L RDW 17.5 H Plt Count 281 MPV 8.3 Sodium Potassium Chloride Carbon Dioxide Anion Gap BUN Creatinine Est GFR (CKD-EPI)AfAm Est GFR (CKD-EPI)NonAf POC Glucometer Random Glucose Calcium Current Medications Generic Name Dose Route Start Last Admin Trade Name Freq PRN Reason Stop Dose Admin Acetaminophen 650 mg 01/14/19 16:03 01/15/19 21:21 Tylenol - PO 650 mg Q6H PRN Administration PAIN LEVEL 1-5 Albuterol Sulfate 1 amp 01/14/19 17:48 01/18/19 00:15 Ventolin 0.083% Nebulizer Soln - NEB 1 amp Q4H PRN Administration SHORT OF BREATH/WHEEZING Apixaban 2.5 mg 01/17/19 22:00 01/19/19 11:26 Eliquis - PO Not Given BID KESHAWN Atorvastatin Calcium 20 mg 01/13/19 22:00 01/18/19 23:09 Lipitor - PO Not Given HS KESHAWN Budesonide/Formoterol Fumarate 2 puff 01/15/19 10:00 01/19/19 11:26 Symbicort 80/4.5mcg - IH Not Given BID KESHAWN Diltiazem HCl 120 mg 01/14/19 10:00 01/19/19 11:27 Cardizem Cd - PO Not Given DAILY KESHAWN Sodium Chloride 250 mls @ 3,000 mls/hr 01/16/19 15:31 Normal Saline - IV 01/17/19 15:31 PRN PRN Hypotension during Dialysis Sodium Chloride 250 mls @ 3,000 mls/hr 01/17/19 09:54 Normal Saline - IV 01/18/19 09:54 PRN PRN Hypotension during Dialysis Sodium Chloride 250 mls @ 3,000 mls/hr 01/18/19 12:05 Normal Saline - IV 01/19/19 12:05 PRN PRN Hypotension during Dialysis Metoprolol Succinate 50 mg 01/13/19 22:00 01/19/19 11:26 Toprol Xl - PO Not Given BID KESHAWN Pantoprazole Sodium 40 mg 01/14/19 10:00 01/19/19 09:47 Protonix - PO 40 mg DAILY KESHAWN Administration Tiotropium [place] 2 puff 01/14/19 10:00 01/19/19 11:26 Spiriva Respimat IH Not Given DAILY [facility] Home Medications Medication Instructions Recorded Amlodipine Besylate [Norvasc -] 5 mg PO DAILY 05/22/17 Apixaban [Eliquis] 2.5 tab PO BID 05/22/17 Fluticasone/Salmeterol [Advair Hfa 12 gm IH DAILY 05/22/17 230-21 Mcg Inhaler] Lipase/Protease/Amylase [Clair Mcgee 1 each PO Q8H 05/22/17 36,000 Units Capsule] Metoprolol Succinate 25 mg PO BID 05/22/17 Omeprazole 40 mg PO DAILY 05/22/17 Simvastatin 40 mg PO DAILY 05/22/17 Tiotropium [place] [Spiriva] 2.5 mcg IH BID 05/22/17 Furosemide 40 mg PO DAILY 12/25/18 ASSESSMENT AND PLAN: 88 year old female with history of CRF on COPD (on home oxygen, 3L), chronic diastolic heart failure, Atrial fibrillation (on Eliquis, s/p PPM), coronary artery disease, hypertension, Chronic LBBB, hyperlipidemia, CKD 4, Hx CVA, presents with shortness of breath worse on exertion, with associated cough. No sputum/hemoptysis. 1. Acute Hypoxic/Hypercapneic Respiratory Failure secondary to acute diastolic CHF decompensation due to non-compliance with prescribed Lasix. Respiratory status improved with BIPAP and fluid removal on HD IV Lasix ineffectual in promoting diuresis - initiated on HD 01/16, 01/17, and again at 01/19, with improvement in fluid status and respiratory function. Producing good volume urine. Continue Telemonitoring, I/Os, daily weights. Cardiology/Nephrology following. 2. Acute Delirium secondary to uremia due to PAULA on CKD 3/4 ? sec to cardiorenal syndrome BUN improving, less confused, still not at baseline mental status. US Kidneys - atrophy, no obstruction s/p HD 01/16, 01/17, 01/19 via R IJ catheter placed by Surgery. Nephrology following. 3. Atrial fibrillation with RVR - Continue Diltiazem, Metoprolol Eliquis resumed at dose of 2.5mg BID after HD catheter insertion. 4. HTN - Continue Diltiazem, Metoprolol. 5. HLD - Continue Atorvastatin 6. CRF sec to COPD/Pulmonary HTN - on Home O2. Appears not to be in COPD exacerbation. Continue Bronchodilator Nebs, Spiriva. Received IV Solumedrol in ED, will hold further steroid for now. 7. Non-specific epigastric pain/tenderness ?gastritis. Continue PPI. AST up to 158 ?due to congestion. Abdominal US - contracted GB with thickened GB wall, without cholelithiasis. Afebrile, but WBC increasing. Will watch for possible cholecystitis. Surgery consulted - recommends CT A/P once able/stable. DVT Px - on Eliquis
--- NOTE | 2019-01-19 15:32 | PN ---
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 Pt seen at bedside along with daughter Venessa and friend Sade in room. She is s /p dialysis, resting. She is not oriented and replies with agitated language, explaining she is tired and not comfortable. Pt's personality has changed drastically over the weekend. OBJECTIVE: Vital Signs Temp Pulse Resp BP Pulse Ox 98.5 F 108 H 20 109/67 96 01/19/19 17:00 01/19/19 17:00 01/19/19 17:00 01/19/19 17:00 01/19/19 11:10 GENERAL: The patient is drowsy, not oriented but answering questions in terse replies. Speaking Greenlandic only. HEAD: NCAT EYES: ZAHRAA, EOMI, conjunctiva clear. No ptosis. Wearing corrective lenses. ENT: Ears normal, nares patent, oropharynx clear without exudates, moist mucous membranes. On NC 3L. NECK: Trachea midline, full range of motion, supple. LUNGS: Decreased air entry on RIGHT lower lobe. Clear to auscultation elsewhere. No wheezes, no crackles, no accessory muscle use. HEART: Irregular, S1, S2 without murmur, rub or gallop. ABDOMEN: Obese, soft, tender to palpation at epigastrium, nondistended, normoactive bowel sounds, no guarding, no rebound, no hepatosplenomegaly, no masses. Pain occurs episodically with peristaltic character. EXTREMITIES: 2+ pitting edema in LE BL. 2+ pulses irregular, warm, well- perfused NEUROLOGICAL: Cranial nerves II through XII grossly intact. Normal speech, gait not observed. PSYCH: Normal mood, normal affect. SKIN: Warm, dry, normal turgor, no rashes or lesions noted Laboratory Results - last 24 hr 01/18/19 01/19/19 01/19/19 22:40 05:21 07:30 WBC RBC Hgb Hct MCV MCH MCHC RDW Plt Count MPV Sodium 137 Potassium 3.7 Chloride 96 L Carbon Dioxide 32 Anion Gap 9 BUN 63.0 H Creatinine 3.9 H Est GFR (CKD-EPI)AfAm 11.40 Est GFR (CKD-EPI)NonAf 9.83 POC Glucometer 80 141 Random Glucose 140 H Calcium 9.1 01/19/19 07:30 WBC 10.5 H RBC 4.01 Hgb 10.8 Hct 34.2 MCV 85.3 MCH 27.0 MCHC 31.6 L RDW 17.5 H Plt Count 281 MPV 8.3 Sodium Potassium Chloride Carbon Dioxide Anion Gap BUN Creatinine Est GFR (CKD-EPI)AfAm Est GFR (CKD-EPI)NonAf POC Glucometer Random Glucose Calcium Active Medications Acetaminophen (Tylenol -) 650 mg PO Q6H PRN PRN Reason: PAIN LEVEL 1-5 Last Admin: 01/15/19 21:21 Dose: 650 mg Albuterol Sulfate (Ventolin 0.083% Nebulizer Soln -) 1 amp NEB Q4H PRN PRN Reason: SHORT OF BREATH/WHEEZING Last Admin: 01/18/19 00:15 Dose: 1 amp Apixaban (Eliquis -) 2.5 mg PO BID [facility] Last Admin: 01/19/19 13:00 Dose: 2.5 mg Atorvastatin Calcium (Lipitor -) 20 mg PO HS [facility] Last Admin: 01/18/19 23:09 Dose: Not Given Budesonide/Formoterol Fumarate (Symbicort 80/4.5mcg -) 2 puff IH BID [facility] Last Admin: 01/19/19 11:26 Dose: Not Given Diltiazem HCl (Cardizem Cd -) 120 mg PO DAILY [facility] Last Admin: 01/19/19 13:00 Dose: 120 mg Sodium Chloride (Normal Saline -) 250 mls @ 3,000 mls/hr IV PRN PRN PRN Reason: Hypotension during Dialysis Stop: 01/19/19 12:05 Metoprolol Succinate (Toprol Xl -) 50 mg PO BID [facility] Last Admin: 01/19/19 13:00 Dose: 50 mg Pantoprazole Sodium (Protonix -) 40 mg PO DAILY [facility] Last Admin: 01/19/19 09:47 Dose: 40 mg Tiotropium [place] (Spiriva Respimat) 2 puff IH DAILY [facility] Last Admin: 01/19/19 11:26 Dose: Not Given ASSESSMENT/PLAN: 88 year old female with history of CRF on COPD (on home oxygen, 3L, currently using bipap), chronic diastolic heart failure, Atrial fibrillation (on Eliquis, s/p PPM), coronary artery disease, hypertension, Chronic LBBB, hyperlipidemia, CKD 4, and Hx CVA, whom presents with shortness of breath worse on exertion, with associated cough. # Acute Hypoxic/Hypercapneic Respiratory Failure 2/2 acute diastolic CHF decompensation due to non-compliance with prescribed Lasix. - Pt reports taking previous home dose of 20 mg Lasix instead of 40mg - Respiratory status improved with BIPAP and fluid removal on HD - HD x3: Jan 16, , 2018 - Pitting edema 2+ today - Urine output improved to 700 cc over 24 - CXR - worsening congestive changes - Elevated BNP - Improved with BiPAP, now comfortable on NC - Continue IV Lasix. - Telemonitoring, I/Os, daily weights. - Cardiology consulted # Acute delirium 2/2 uremia d/t PAULA on CKD 4 and cardiorenal syndrome - RIGHT IJ catheter placed by surgery - BUN improving - Less confused, still not at baseline mental status - US Kidneys: Atrophy, no obstruction - Nephrology consulted # Atrial fibrillation with RVR - Continue Diltiazem, Metoprolol - Eliquis 2.5 mg BID, resumed # PAULA on CKD 3/CKD 4 - Most likely 2/2 cardiorenal syndrome - Urine output 100 cc - Worsening Cr - Nephrology consulted: Will need HD emergently, HD catheter placement pending, family at bedside in agreement with need for HD - US Bladder/Kidneys pending: renal atrophy, no obstruction - Continue IV lasix diuresis. I/Os. # Abdominal tenderness - Non-specific epigastric pain/tenderness partially relieved by PPI - AST 113 - Abdominal US: Contracted GB with thickened GB wall, withOUT cholelithiasis - Afebrile - Leukocytosis increasing - Monitor for possible cholecystitis - Surgery consulted # HTN - Continue Diltiazem, Metoprolol. - Valsartan held. # HLD - Cont atorvastatin # DM - ISS Novolog # Chronic Respiratory Failure 2/2 COPD/Pulmonary HTN - On bipap - Current presentation appears not to be in COPD exacerbation - Cont. bronchodilator nebs, Spiriva. - Received IV Solumedrol in ED, will hold further steroid for now. # F/E/N - No standing fluids - Cont. to monitor electrolytes - Low sodium/diabetic diet # DVT prophylaxis - Eliquis; temporarily held # Disposition - Telemetry Jorge Marshall MD Visit type - Emergency Visit Emergency Visit: No - New Patient This patient is new to me today: No - Critical Care Critical Care patient: No - Discharge Referral Referred to [facility] Med P.C.: No ATTENDING PHYSICIAN STATEMENT I saw and evaluated the patient. I reviewed the resident's note and discussed the case with the resident. I agree with the resident's findings and plan as documented. SUBJECTIVE: OBJECTIVE: ASSESSMENT AND PLAN:
[2019-01-19] MEDS ORDERED: diphenhydrAMINE HCL 25 MG CAPSULE (FP) PO ONE (15:58)
[2019-01-19] MEDS: ATORVASTATIN CA 20 MG TABLET (FP) PO SCH (23:35)
[2019-01-20] MEDS ORDERED: MELATONIN 5 MG TABLETS PO ONE ×2 (00:31→22:04)
[2019-01-20 08:55] LABS: ALBUMIN 2.9 g/dl (3.4-5.0); BILIRUBIN,TOTAL 1.1 mg/dL (0.2-1); BLOOD UREA NITROGEN 37.3 mg/dL (7-18); CALCIUM 7.9 mg/dL (8.5-10.1); CREATININE 2.7 mg/dL (0.55-1.3); POTASSIUM 3.3 mmol/L (3.5-5.1); TOT PROT 6.1 g/dl (6.4-8.2)
[2019-01-20] MEDS: PANTOPRAZOLE 40 MG TABLET (FP) PO SCH (09:41)
[2019-01-20] MEDS: APIXABAN 2.5 MG TABLET PO SCH ×2 (09:41→22:21)
[2019-01-20] MEDS: metoPROLOL SUCCINATE 25 MG TAB.SR.24H (FP) PO SCH ×2 (09:42→22:21)
[2019-01-20] MEDS: BUDESONIDE/FORMETEROL FUMARATE 80/4.5 mcg INHALER IH SCH ×2 (09:43→22:23)
[2019-01-20] MEDS: TIOTROPIUM BROMIDE 2.5 MCG (SPIRIVA) RESPIMAT INHALER IH SCH (13:29)
--- NOTE | 2019-01-20 14:07 | PN ---
Progress Note, Physician Chief Complaint: Events noted Awake and alert History of Present Illness: Patient was seen and examined. Chart was reviewed Denies chest pain, SOB or palpitations - Current Medication List Current Medications: Active Medications Acetaminophen (Tylenol -) 650 mg PO Q6H PRN PRN Reason: PAIN LEVEL 1-5 Last Admin: 01/15/19 21:21 Dose: 650 mg Albuterol Sulfate (Ventolin 0.083% Nebulizer Soln -) 1 amp NEB Q4H PRN PRN Reason: SHORT OF BREATH/WHEEZING Last Admin: 01/18/19 00:15 Dose: 1 amp Apixaban (Eliquis -) 2.5 mg PO BID [facility] Last Admin: 01/20/19 09:41 Dose: 2.5 mg Atorvastatin Calcium (Lipitor -) 20 mg PO HS [facility] Last Admin: 01/19/19 23:35 Dose: 20 mg Budesonide/Formoterol Fumarate (Symbicort 80/4.5mcg -) 2 puff IH BID [facility] Last Admin: 01/20/19 09:43 Dose: 2 puff Diltiazem HCl (Cardizem Cd -) 120 mg PO DAILY [facility] Last Admin: 01/20/19 09:43 Dose: 120 mg Sodium Chloride (Normal Saline -) 250 mls @ 3,000 mls/hr IV PRN PRN PRN Reason: Hypotension during Dialysis Stop: 01/19/19 12:05 Metoprolol Succinate (Toprol Xl -) 50 mg PO BID [facility] Last Admin: 01/20/19 09:42 Dose: 50 mg Pantoprazole Sodium (Protonix -) 40 mg PO DAILY [facility] Last Admin: 01/20/19 09:41 Dose: 40 mg Tiotropium [place] (Spiriva Respimat) 2 puff IH DAILY [facility] Last Admin: 01/20/19 13:29 Dose: 2 puff - Objective Vital Signs: Vital Signs Temperature 98.2 F 01/20/19 10:13 Pulse Rate 95 H 01/20/19 10:13 Respiratory Rate 20 01/20/19 10:13 Blood Pressure 119/58 L 01/20/19 10:13 O2 Sat by Pulse Oximetry (%) 94 L 01/20/19 09:00 Neck: Yes: Supple Cardiovascular: Yes: Pulse Irregular, S1, S2 Respiratory: Yes: Diminished Gastrointestinal: Yes: Normal Bowel Sounds, Soft. No: Tenderness Edema: No Labs: CBC, BMP 01/19/19 07:30 01/20/19 08:15 Problem List - Problems (1) [id number] kidney injury Code(s): N17.9 - ACUTE KIDNEY FAILURE, UNSPECIFIED; N18.9 - CHRONIC KIDNEY DISEASE, UNSPECIFIED Qualifiers: Chronic kidney disease stage: stage 4 (severe) (2) COPD exacerbation Code(s): J44.1 - CHRONIC OBSTRUCTIVE PULMONARY DISEASE W (ACUTE) EXACERBATION (3) Toxic metabolic encephalopathy Code(s): G92 - TOXIC ENCEPHALOPATHY (4) Acute on chronic diastolic CHF (congestive heart failure) Code(s): I50.33 - ACUTE ON CHRONIC DIASTOLIC (CONGESTIVE) HEART FAILURE (5) Acute on chronic respiratory failure with hypoxia and hypercapnia Code(s): J96.21 - ACUTE AND CHRONIC RESPIRATORY FAILURE WITH HYPOXIA; J96.22 - ACUTE AND CHRONIC RESPIRATORY FAILURE WITH HYPERCAPNIA (6) FRYE (dyspnea on exertion) Code(s): R06.09 - OTHER FORMS OF DYSPNEA (7) Hyperlipidemia Code(s): E78.5 - HYPERLIPIDEMIA, UNSPECIFIED Qualifiers: Hyperlipidemia type: pure hypercholesterolemia Qualified Code(s): E78.00 - Pure hypercholesterolemia, unspecified; E78.0 - Pure hypercholesterolemia (8) Pulmonary HTN Code(s): I27.20 - PULMONARY HYPERTENSION, UNSPECIFIED (9) Sepsis Code(s): A41.9 - SEPSIS, UNSPECIFIED ORGANISM (10) Sleep apnea Code(s): G47.30 - SLEEP APNEA, UNSPECIFIED (11) Paroxysmal atrial fibrillation Code(s): I48.0 - PAROXYSMAL ATRIAL FIBRILLATION Assessment/Plan 1. Toxic metabolic encephalopathy due to uremia 2. Acute on chronic hypercapneic, hypoxemic respiratory failure 3. Acute on chronic LV diastolic failure with h/o resolved cardiomyopathy 4. Paroxysmal atrial fibrillation with rapid ventricular response [id number] score of 7-8 now on NOAC 5. 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 CAD negative MPI study for myocardial ischemia 7. Post cardiac pacemaker 8. HTN 9. Hypercholesterolemia 10. History of CVA 11. Acute on CKD on HD 12. Hyponatremia PLAN: 1. Volume removal via HD per renal with monitor urine output, renal function and electrolytes 2. Continue Metoprolol 50 mg BID and Cardizem CD 120 mg QD with IV Cardizem or Lopressor as needed for rate-control, continue Lipitor 20 mg QHS and Eliquis 2.5 mg BID. Resume Diovan as renal function stabilizes 3. Bronchodilator, O2 and BIPAP as needed Continue present management El Deleon MD
--- NOTE | 2019-01-20 14:24 | PN ---
Physical Exam: SUBJECTIVE: 88 y/o F w PMH CKD stage 3a, COPD currently using bipap, pAF, CAD with mixed systolic and diastolic dysfunction, s/p AICD/PPM placement, HTN, and HLD whom initially presented w SOB and admitted for acute on chronic hypoxic and hypercapneic respiratory failure d/t decompensated HF 2/2 to [facility] with RVR. Pt seen at bedside, resting comfortably. She is arousable but somnolent. Pt orientable but after 2-3 attempts. She did not participate in interview this morning. OBJECTIVE: Vital Signs Period Temp Pulse Resp BP Sys/Perez Pulse Ox Last 24 Hr 97.5 F-98.5 F 93-110 20-23 100-131/47-73 94-95 GENERAL: The patient is drowsy, not oriented but responding to verbal commands. Speaking Swedish only. HEAD: NCAT EYES: ZAHRAA, EOMI, conjunctiva clear. No ptosis. Wearing corrective lenses. ENT: Ears normal, nares patent, oropharynx clear without exudates, moist mucous membranes. On NC 3L. NECK: Trachea midline, full range of motion, supple. LUNGS: Decreased air entry on RIGHT lower lobe. Clear to auscultation elsewhere. No wheezes, no crackles, no accessory muscle use. HEART: Irregular, S1, S2 without murmur, rub or gallop. ABDOMEN: Obese, soft, tender to palpation at epigastrium, nondistended, normoactive bowel sounds, no guarding, no rebound, no hepatosplenomegaly, no masses. Pain occurs episodically with peristaltic character. EXTREMITIES: 2+ pitting edema in LE BL. 2+ pulses irregular, warm, well- perfused NEUROLOGICAL: Cranial nerves II through XII grossly intact. Normal speech, gait not observed. PSYCH: Normal mood, normal affect. SKIN: RIGHT IJ catheter, Warm, dry, normal turgor, no rashes or lesions noted Laboratory Results - last 24 hr 01/16/19 01/20/19 10:40 08:15 Sodium 139 Potassium 3.3 L Chloride 100 Carbon Dioxide 30 Anion Gap 10 BUN 37.3 H Creatinine 2.7 H Est GFR (CKD-EPI)AfAm 17.78 Est GFR (CKD-EPI)NonAf 15.34 Random Glucose 141 H Calcium 7.9 L Total Bilirubin 1.1 H AST 88 H ALT 52 Alkaline Phosphatase 192 H Total Protein 6.1 L Albumin 2.9 L HCV Quantitation Hcv not detected HCV RNA log copies/mL TNP Active Medications Acetaminophen (Tylenol -) 650 mg PO Q6H PRN PRN Reason: PAIN LEVEL 1-5 Last Admin: 01/15/19 21:21 Dose: 650 mg Albuterol Sulfate (Ventolin 0.083% Nebulizer Soln -) 1 amp NEB Q4H PRN PRN Reason: SHORT OF BREATH/WHEEZING Last Admin: 01/20/19 21:30 Dose: 1 amp Apixaban (Eliquis -) 2.5 mg PO BID [facility] Last Admin: 01/20/19 22:21 Dose: 2.5 mg Atorvastatin Calcium (Lipitor -) 20 mg PO HS [facility] Last Admin: 01/20/19 22:21 Dose: 20 mg Budesonide/Formoterol Fumarate (Symbicort 80/4.5mcg -) 2 puff IH BID [facility] Last Admin: 01/20/19 22:23 Dose: 2 puff Diltiazem HCl (Cardizem Cd -) 120 mg PO DAILY [facility] Last Admin: 01/20/19 09:43 Dose: 120 mg Sodium Chloride (Normal Saline -) 250 mls @ 3,000 mls/hr IV PRN PRN PRN Reason: Hypotension during Dialysis Stop: 01/19/19 12:05 Metoprolol Succinate (Toprol Xl -) 50 mg PO BID [facility] Last Admin: 01/20/19 22:21 Dose: 50 mg Pantoprazole Sodium (Protonix -) 40 mg PO DAILY [facility] Last Admin: 01/20/19 09:41 Dose: 40 mg Tiotropium [place] (Spiriva Respimat) 2 puff IH DAILY [facility] Last Admin: 01/20/19 13:29 Dose: 2 puff ASSESSMENT/PLAN: 88 year old female with history of CRF on COPD (on home oxygen, 3L, currently using bipap), chronic diastolic heart failure, Atrial fibrillation (on Eliquis, s/p PPM), coronary artery disease, hypertension, Chronic LBBB, hyperlipidemia, CKD 4, and Hx CVA, whom presents with shortness of breath worse on exertion, with associated cough. Pt now receiving HD 2/2 rapid BUN increase and worsening kidney function. # Acute Hypoxic/Hypercapneic Respiratory Failure 2/2 acute diastolic CHF decompensation due to non-compliance with prescribed Lasix. - Pt reports taking previous home dose of 20 mg Lasix instead of 40mg - Respiratory status improved with BIPAP and fluid removal on HD - HD x3: Jan 16, , 2018 - Pitting edema 2+ today - Urine output improved to 700 cc over 24 - CXR - worsening congestive changes - Elevated BNP - Improved with BiPAP, now comfortable on NC - Continue IV Lasix. - Telemonitoring, I/Os, daily weights. - Cardiology consulted # Acute toxic metabolic encephalopathy - RIGHT IJ catheter placed by surgery - Most likely 2/2 uremia - ABG pending (assess for hypercapnea) - BUN improving - Less confused, still not at baseline mental status - Insomnia: melatonin - US Kidneys: Atrophy, no obstruction - Nephrology consulted # Atrial fibrillation with RVR - Continue Diltiazem, Metoprolol - Eliquis 2.5 mg BID, resumed # PAULA on CKD 4 - Most likely 2/2 cardiorenal syndrome - Urine output 100 cc - Worsening Cr - Nephrology consulted: Will need HD emergently, HD catheter placement pending, family at bedside in agreement with need for HD - US Bladder/Kidneys pending: renal atrophy, no obstruction - Continue IV lasix diuresis. I/Os. # Abdominal tenderness - Non-specific epigastric pain/tenderness partially relieved by PPI - AST 113 - Abdominal US: Contracted GB with thickened GB wall, withOUT cholelithiasis - Afebrile - Leukocytosis increasing - Monitor for possible cholecystitis - Surgery consulted # HTN - Continue Diltiazem, Metoprolol. - Valsartan held. # HLD - Cont atorvastatin # DM - ISS Novolog # Chronic Respiratory Failure 2/2 COPD/Pulmonary HTN - Refusing bipap - 97% on 3L NC - Current presentation appears not to be in COPD exacerbation - Cont. bronchodilator nebs, Spiriva. - Received IV Solumedrol in ED, will hold further steroid for now. # F/E/N - No standing fluids - Cont. to monitor electrolytes - Low sodium/diabetic diet # DVT prophylaxis - Eliquis # Disposition - Telemetry Jorge Marshall MD Visit type - Emergency Visit Emergency Visit: No - New Patient This patient is new to me today: No - Critical Care Critical Care patient: No - Discharge Referral Referred to [facility] Med P.C.: No ATTENDING PHYSICIAN STATEMENT I saw and evaluated the patient. I reviewed the resident's note and discussed the case with the resident. I agree with the resident's findings and plan as documented. SUBJECTIVE: OBJECTIVE: ASSESSMENT AND PLAN:
--- NOTE | 2019-01-20 14:57 | PN ---
Teaching Attending Note Name of Resident: Jorge Marshall ATTENDING PHYSICIAN STATEMENT I saw and evaluated the patient. I reviewed the resident's note and discussed the case with the resident. I agree with the resident's findings and plan as documented. SUBJECTIVE:c/o difficulty breathing, also some difficulty sleeping at night. denies Cp, SOB, fever, chills, N/V/C/D OBJECTIVE: Last Vital Signs Temp Pulse Resp BP Pulse Ox 98.2 F 95 H 20 119/58 L 94 L 01/20/19 10:13 01/20/19 10:13 01/20/19 10:13 01/20/19 10:13 01/20/19 09:00 Intake & Output 01/17/19 01/18/19 01/19/19 01/20/19 23:59 23:59 23:59 23:59 Intake Total 300 435 550 0 Output Total 500 600 600 550 Balance -200 -165 -50 -550 Weight 135 lb 9.6 oz 136 lb 6.4 oz General NAD, breathing comfortable, not tachypnic CV S1 S2 irregular Lungs decrease base, poor inspiratory effort Abdomen soft NT/ND Extremities 1+ pitting edema B/L ASSESSMENT AND PLAN: 88 year old female with history of CRF on COPD (on home oxygen, 3L), chronic diastolic heart failure, Atrial fibrillation (on Eliquis, s/p PPM), coronary artery disease, hypertension, Chronic LBBB, hyperlipidemia, CKD 4, Hx CVA, presents with shortness of breath worse on exertion, with associated cough. No sputum/hemoptysis. 1. Acute on chronic Hypoxic/Hypercapneic Respiratory Failure secondary to acute diastolic CHF decompensation due to non-compliance with prescribed Lasix. currently 97% on 3L NC. no response to lasix and started on HD. x3 sessions at this point. will need to f/u with nephro about half-way HD if needed. Respiratory status improved with BIPAP and fluid removal on HD. Cardiology/ Nephrology following. 2. Acute toxic metabolic encephalopathy- due to uremia. has intermittent confusion. as per daughter at bedside, has episodes of confusion and forgetfulness but other periods where she is at baseline. also not being able to sleep at bedtime is making her more lethargic during the day. has had HD and no longer seems uremic. will give melatonin. can check ABG to evaluate for hypercapnia playing a role here. 3. Atrial fibrillation with RVR - Continue Diltiazem, Metoprolol. Eliquis resumed at dose of 2.5mg BID after HD catheter insertion. 4. HTN - Continue Diltiazem, Metoprolol. 5. HLD - Continue Atorvastatin 6. CRF sec to COPD/Pulmonary HTN - on Home O2. Appears not to be in COPD exacerbation. Continue Bronchodilator Nebs, Spiriva. Received IV Solumedrol in ED, will hold further steroid for now. 7. Non-specific epigastric pain/tenderness- some elevated bili which has now trended down. no longer tender. u/s showing some thickened gallbladder. will hold off on further workup at this time. 8. DVT Px - on Eliquis 9. spoke with daughter at bedside extensively. concerned for mothers frequent hospitalizations this year (4th admission) and unable to care for her at home. addressed placement as option if unable to care for her. which she refused. also does not have funds for private [employer]. PT eval for assessment. VNS can be arranged but explained hours with this is also limited. also explained expectations as mother is aging and due to multiple comorbidities will likely require more hospitalizations but with added help in the home with prolong time in between. will have SW speak with her as well. verbalized understanding
[2019-01-20] MEDS ORDERED: POTASSIUM CHLORIDE TABS 10 MEQ TABLET.ER (FP) PO ONE (15:09)
--- NOTE | 2019-01-20 15:12 | PN ---
Progress Note, Physician History of Present Illness: Pt seen and examined at bedside. She is awake and appears more comfortable. - Current Medication List Current Medications: Active Medications Acetaminophen (Tylenol -) 650 mg PO Q6H PRN PRN Reason: PAIN LEVEL 1-5 Last Admin: 01/15/19 21:21 Dose: 650 mg Albuterol Sulfate (Ventolin 0.083% Nebulizer Soln -) 1 amp NEB Q4H PRN PRN Reason: SHORT OF BREATH/WHEEZING Last Admin: 01/18/19 00:15 Dose: 1 amp Apixaban (Eliquis -) 2.5 mg PO BID [facility] Last Admin: 01/20/19 09:41 Dose: 2.5 mg Atorvastatin Calcium (Lipitor -) 20 mg PO HS [facility] Last Admin: 01/19/19 23:35 Dose: 20 mg Budesonide/Formoterol Fumarate (Symbicort 80/4.5mcg -) 2 puff IH BID [facility] Last Admin: 01/20/19 09:43 Dose: 2 puff Diltiazem HCl (Cardizem Cd -) 120 mg PO DAILY [facility] Last Admin: 01/20/19 09:43 Dose: 120 mg Sodium Chloride (Normal Saline -) 250 mls @ 3,000 mls/hr IV PRN PRN PRN Reason: Hypotension during Dialysis Stop: 01/19/19 12:05 Metoprolol Succinate (Toprol Xl -) 50 mg PO BID [facility] Last Admin: 01/20/19 09:42 Dose: 50 mg Pantoprazole Sodium (Protonix -) 40 mg PO DAILY [facility] Last Admin: 01/20/19 09:41 Dose: 40 mg Tiotropium [place] (Spiriva Respimat) 2 puff IH DAILY [facility] Last Admin: 01/20/19 13:29 Dose: 2 puff - Objective Vital Signs: Vital Signs Temperature 98.2 F 01/20/19 10:13 Pulse Rate 95 H 01/20/19 10:13 Respiratory Rate 20 01/20/19 10:13 Blood Pressure 119/58 L 01/20/19 10:13 O2 Sat by Pulse Oximetry (%) 94 L 01/20/19 09:00 Constitutional: Yes: Calm Eyes: Yes: Conjunctiva Clear HENT: Yes: Atraumatic Neck: Yes: Supple Cardiovascular: Yes: S1, S2 Respiratory: Yes: On Nasal O2 Gastrointestinal: Yes: Soft, Abdomen, Obese Genitourinary: Yes: Goldstein Present Musculoskeletal: Yes: WNL Edema: Yes Edema: LLE: 1+, RLE: 1+ Neurological: Yes: Oriented Psychiatric: Yes: Oriented Labs: CBC, BMP 01/19/19 07:30 01/20/19 08:15 INR, PTT INR 2.60 (0.83-1.09) H 01/16/19 06:19 Problem List - Problems (1) [id number] kidney injury Code(s): N17.9 - ACUTE KIDNEY FAILURE, UNSPECIFIED; N18.9 - CHRONIC KIDNEY DISEASE, UNSPECIFIED Qualifiers: Chronic kidney disease stage: stage 4 (severe) (2) CHF exacerbation Code(s): I50.9 - HEART FAILURE, UNSPECIFIED Qualifiers: Heart failure type: unspecified Qualified Code(s): I50.9 - Heart failure, unspecified (3) COPD exacerbation Code(s): J44.1 - CHRONIC OBSTRUCTIVE PULMONARY DISEASE W (ACUTE) EXACERBATION Assessment/Plan Current Medications Generic Name Dose Route Start Last Admin Trade Name Freq PRN Reason Stop Dose Admin Acetaminophen 650 mg 01/14/19 16:03 01/15/19 21:21 Tylenol - PO 650 mg Q6H PRN Administration PAIN LEVEL 1-5 Albuterol Sulfate 1 amp 01/14/19 17:48 01/18/19 00:15 Ventolin 0.083% Nebulizer Soln - NEB 1 amp Q4H PRN Administration SHORT OF BREATH/WHEEZING Apixaban 2.5 mg 01/17/19 22:00 01/20/19 09:41 Eliquis - PO 2.5 mg BID KESHAWN Administration Atorvastatin Calcium 20 mg 01/13/19 22:00 01/19/19 23:35 Lipitor - PO 20 mg HS KESHAWN Administration Budesonide/Formoterol Fumarate 2 puff 01/15/19 10:00 01/20/19 09:43 Symbicort 80/4.5mcg - IH 2 puff BID KESHAWN Administration Diltiazem HCl 120 mg 01/14/19 10:00 01/20/19 09:43 Cardizem Cd - PO 120 mg DAILY K[facility]HAWN Administration Sodium Chloride 250 mls @ 3,000 mls/hr 01/18/19 12:05 Normal Saline - IV 01/19/19 12:05 PRN PRN Hypotension during Dialysis Metoprolol Succinate 50 mg 01/13/19 22:00 01/20/19 09:42 Toprol Xl - PO 50 mg BID KESHAWN Administration Pantoprazole Sodium 40 mg 01/14/19 10:00 01/20/19 09:41 Protonix - PO 40 mg DAILY KESHAWN Administration Potassium Chloride 10 meq 01/20/19 15:09 K-Dur - PO 01/20/19 15:10 ONCE ONE Tiotropium [place] 2 puff 01/14/19 10:00 01/20/19 13:29 Spiriva Respimat IH 2 puff DAILY KESHAWN Administration Impression 1. CKD 2. PAULA 3. COPD 4. asthma 5. dyspnea 6. HTN 7. a-fib 8. CHF 9. CAD Plan - follow serologies - repeat labs in am - replace potassium - will evaluate for HD tomorrow - urine output improving - cxr reviewed - renal diet for now
[2019-01-20 17:11] LABS: ARTERIAL BLD GAS O2 SATURATION 97.1 % (95-98); ARTERIAL BLOOD GAS BASE EXCESS 3.1 meq/l (-2-2); ARTERIAL BLOOD GAS PCO2 49.1 mmHg (35-45); ARTERIAL BLOOD GAS PO2 94.9 mmHg (80-100); ARTERIAL BLOOD GAS pH 7.38 (7.35-7.45)
[2019-01-20 17:38] LABS: ALLENS TEST POSITIVE
[2019-01-20] MEDS: ALBUTEROL SO4 0.083% IH SOL 2.5 MG/3 ML VIAL.NEB. NEB PRN (21:30)
[2019-01-20] MEDS: ATORVASTATIN CA 20 MG TABLET (FP) PO SCH (22:21)
[2019-01-21 08:07] LABS: BASO % 0.7 % (0-2.0); EOS % 4.1 % (0-4.5); HEMATOCRIT 32.8 % (32.4-45.2); HEMOGLOBIN 10.3 GM/dL (10.7-15.3); LYMPH % 10.9 % (8-40); MCHC 31.4 g/dl (32.0-36.0); MEAN PLT VOLUME 8.2 fl (7.5-11.1); MONO % 12.5 % (3.8-10.2); NEUT % 71.8 % (42.8-82.8); PLATELET COUNT 225 K/MM3 (134-434); RBC 3.82 M/mm3 (3.60-5.2); RDW 17.3 % (11.6-15.6); WHITE BLOOD COUNT 8.5 K/mm3 (4.0-10.0)
[2019-01-21 09:00] LABS: ALBUMIN 2.8 g/dl (3.4-5.0); BILIRUBIN,TOTAL 0.8 mg/dL (0.2-1); BLOOD UREA NITROGEN 44.8 mg/dL (7-18); CALCIUM 8.3 mg/dL (8.5-10.1); CREATININE 2.9 mg/dL (0.55-1.3); MAGNESIUM 2.3 mg/dL (1.8-2.4); PHOSPHOROUS 4.1 mg/dL (2.5-4.9); POTASSIUM 3.7 mmol/L (3.5-5.1); TOT PROT 5.8 g/dl (6.4-8.2)
--- NOTE | 2019-01-21 10:13 | PN ---
Progress Note, Physician History of Present Illness: Volume status improved after HD, urine output increasing, sensorium and uremia improving, agreeable for meds now. - Current Medication List Current Medications: Active Medications Acetaminophen (Tylenol -) 650 mg PO Q6H PRN PRN Reason: PAIN LEVEL 1-5 Last Admin: 01/15/19 21:21 Dose: 650 mg Albuterol Sulfate (Ventolin 0.083% Nebulizer Soln -) 1 amp NEB Q4H PRN PRN Reason: SHORT OF BREATH/WHEEZING Last Admin: 01/20/19 21:30 Dose: 1 amp Apixaban (Eliquis -) 2.5 mg PO BID [facility] Last Admin: 01/20/19 22:21 Dose: 2.5 mg Atorvastatin Calcium (Lipitor -) 20 mg PO HS [facility] Last Admin: 01/20/19 22:21 Dose: 20 mg Budesonide/Formoterol Fumarate (Symbicort 80/4.5mcg -) 2 puff IH BID [facility] Last Admin: 01/20/19 22:23 Dose: 2 puff Diltiazem HCl (Cardizem Cd -) 120 mg PO DAILY [facility] Last Admin: 01/20/19 09:43 Dose: 120 mg Sodium Chloride (Normal Saline -) 250 mls @ 3,000 mls/hr IV PRN PRN PRN Reason: Hypotension during Dialysis Stop: 01/19/19 12:05 Metoprolol Succinate (Toprol Xl -) 50 mg PO BID [facility] Last Admin: 01/20/19 22:21 Dose: 50 mg Pantoprazole Sodium (Protonix -) 40 mg PO DAILY [facility] Last Admin: 01/20/19 09:41 Dose: 40 mg Tiotropium [place] (Spiriva Respimat) 2 puff IH DAILY [facility] Last Admin: 01/20/19 13:29 Dose: 2 puff - Objective Vital Signs: Vital Signs Temperature 98 F 01/21/19 09:17 Pulse Rate 88 01/21/19 09:17 Respiratory Rate 20 01/21/19 09:17 Blood Pressure 108/76 01/21/19 09:17 O2 Sat by Pulse Oximetry (%) 97 01/21/19 04:05 Constitutional: Yes: No Distress, Calm Neck: Yes: Supple Cardiovascular: Yes: Regular Rate and Rhythm Respiratory: Yes: Regular, Diminished Gastrointestinal: Yes: Normal Bowel Sounds, Soft Edema: Yes Edema: LLE: 1+, RLE: 1+ Labs: CBC, BMP 01/21/19 06:23 01/21/19 06:23 INR, PTT INR 2.60 (0.83-1.09) H 01/16/19 06:19 - ....Imaging Chest X-ray: Report Reviewed (Mild congestion, pacemaker) Problem List - Problems (1) [id number] kidney injury Code(s): N17.9 - ACUTE KIDNEY FAILURE, UNSPECIFIED; N18.9 - CHRONIC KIDNEY DISEASE, UNSPECIFIED Qualifiers: Chronic kidney disease stage: stage 4 (severe) (2) Acute on chronic diastolic CHF (congestive heart failure) Code(s): I50.33 - ACUTE ON CHRONIC DIASTOLIC (CONGESTIVE) HEART FAILURE (3) Acute on chronic respiratory failure with hypoxia and hypercapnia Code(s): J96.21 - ACUTE AND CHRONIC RESPIRATORY FAILURE WITH HYPOXIA; J96.22 - ACUTE AND CHRONIC RESPIRATORY FAILURE WITH HYPERCAPNIA (4) Atrial fibrillation with rapid ventricular response Code(s): I48.91 - UNSPECIFIED ATRIAL FIBRILLATION (5) Chronic anticoagulation Code(s): Z79.01 - [employer] (CURRENT) USE OF ANTICOAGULANTS (6) FRYE (dyspnea on exertion) Code(s): R06.09 - OTHER FORMS OF DYSPNEA (7) Hyperlipidemia Code(s): E78.5 - HYPERLIPIDEMIA, UNSPECIFIED Qualifiers: Hyperlipidemia type: pure hypercholesterolemia Qualified Code(s): E78.00 - Pure hypercholesterolemia, unspecified; E78.0 - Pure hypercholesterolemia (8) Pulmonary HTN Code(s): I27.20 - PULMONARY HYPERTENSION, UNSPECIFIED (9) Sleep apnea Code(s): G47.30 - SLEEP APNEA, UNSPECIFIED (10) Toxic metabolic encephalopathy Code(s): G92 - TOXIC ENCEPHALOPATHY Assessment/Plan 01/16/2019 Renal US: atrophic kidneys no hydro 12/25/2018 Echo: Normal LV and RV size and fxn, mod MR, TR RVSP 30-40 mmHg, mild 12/31/2018 Normal renal US 11/03/2018 Echo: Normal LV size and fxn LVEF 55-60%, grade II DD, mild-mod TR RVSP 44 mmHg, mild-mod MG 12 mmHg 11/03/[address]: Emphysema, ILD, pulm HTN 08/16/2015 Echo: Normal LV size with mild cLVH, mod-severe decreased LVEF, mod TR , mild MR, [place] 03/09/2015 P=Myoview: No ischemia, LVEF 51% 1. Toxic metabolic encephalopathy due to uremia 2. Acute on chronic hypercapneic, hypoxemic respiratory failure 3. Acute on chronic LV diastolic failure with h/o resolved cardiomyopathy 4. Paroxysmal atrial fibrillation with rapid ventricular response [id number] score of 7-8 now on NOAC 5. 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 CAD negative MPI study for myocardial ischemia 7. Post cardiac pacemaker 8. HTN 9. Hypercholesterolemia 10. History of CVA 11. Acute on CKD on HD 12. Hyponatremia resolved PLAN: 1. Volume removal via HD per renal with monitor urine output, renal function and electrolytes 2. Continue Metoprolol 50 mg BID and Cardizem CD 120 mg QD with IV Cardizem or Lopressor as needed for rate-control, continue Lipitor 20 mg QHS and Eliquis 2.5 mg BID. Resume Diovan as renal function stabilizes 3. Bronchodilator, O2 and BIPAP as needed
[2019-01-21] MEDS: APIXABAN 2.5 MG TABLET PO SCH ×2 (10:18→21:57)
[2019-01-21] MEDS: PANTOPRAZOLE 40 MG TABLET (FP) PO SCH (10:18)
[2019-01-21] MEDS: BUDESONIDE/FORMETEROL FUMARATE 80/4.5 mcg INHALER IH SCH ×2 (10:18→21:58)
[2019-01-21] MEDS: TIOTROPIUM BROMIDE 2.5 MCG (SPIRIVA) RESPIMAT INHALER IH SCH (10:18)
[2019-01-21] MEDS: metoPROLOL SUCCINATE 25 MG TAB.SR.24H (FP) PO SCH ×2 (10:18→21:57)
--- NOTE | 2019-01-21 12:28 | PN ---
Teaching Attending Note Name of Resident: Jorge Marshall ATTENDING PHYSICIAN STATEMENT I saw and evaluated the patient. I reviewed the resident's note and discussed the case with the resident. I agree with the resident's findings and plan as documented. SUBJECTIVE:c/o difficulty sleeping at night as aid keeps waking her up for vital checks. denies Cp, SOb, fever, chills, cough, N/v/C/D OBJECTIVE: Last Vital Signs Temp Pulse Resp BP Pulse Ox 98 F 88 20 108/76 92 L 01/21/19 09:17 01/21/19 09:17 01/21/19 09:17 01/21/19 09:17 01/21/19 09:45 Intake & Output 01/18/19 01/19/19 01/20/19 01/21/19 23:59 23:59 23:59 23:59 Intake Total 435 550 680 0 Output Total 600 600 950 350 Balance -165 -50 -270 -350 Weight 135 lb 9.6 oz 136 lb 6.4 oz 138 lb General NAD, alert, refuses to answer questions to determine orientation CV S1 S2 irregular Lungs decrease base, poor inspiratory effort Abdomen soft RUQ tenderness Extremities 1+ pitting edema B/L ASSESSMENT AND PLAN: 88 year old female with history of CRF on COPD (on home oxygen, 3L), chronic diastolic heart failure, Atrial fibrillation (on Eliquis, s/p PPM), coronary artery disease, hypertension, Chronic LBBB, hyperlipidemia, CKD 4, Hx CVA, presents with shortness of breath worse on exertion, with associated cough. No sputum/hemoptysis. 1. Acute on chronic Hypoxic/Hypercapneic Respiratory Failure secondary to acute diastolic CHF decompensation due to non-compliance with prescribed Lasix. currently 97% on 3L NC. no response to lasix and started on HD. x3 sessions at this point. UOP improved. likely no plan for HD today. will f/u if HD catheter can be removed. Respiratory status improved with BIPAP and fluid removal on HD. Cardiology/ Nephrology following. 2. Acute toxic metabolic encephalopathy- due to uremia. today is alert but selectively not responding to my questions but having full conversation with daughter who is re-asking my questions. no indication for HD today for uremia which seems to have resolved. 3. Atrial fibrillation with RVR - Continue Diltiazem, Metoprolol. Eliquis resumed at dose of 2.5mg BID after HD catheter insertion. 4. HTN - Continue Diltiazem, Metoprolol. 5. HLD - Continue Atorvastatin 6. CRF sec to COPD/Pulmonary HTN - on Home O2. Appears not to be in COPD exacerbation. Continue Bronchodilator Nebs, Spiriva. Received IV Solumedrol in ED, will hold further steroid for now. 7. Non-specific epigastric pain/tenderness- Bili trended down, having RUQ tenderness. will get CT to further evaluate. will call back surgery if needed. 8. DVT Px - on Eliquis 9. PT assessment. family and patient refusing EDUARD but willing for PT eval to determine ability to go home once medically optimized
--- NOTE | 2019-01-21 13:23 | PN ---
Progress Note, Physician History of Present Illness: Pt seen and examined at bedside. She is awake and alert. She is making urine. - Current Medication List Current Medications: Active Medications Acetaminophen (Tylenol -) 650 mg PO Q6H PRN PRN Reason: PAIN LEVEL 1-5 Last Admin: 01/15/19 21:21 Dose: 650 mg Albuterol Sulfate (Ventolin 0.083% Nebulizer Soln -) 1 amp NEB Q4H PRN PRN Reason: SHORT OF BREATH/WHEEZING Last Admin: 01/20/19 21:30 Dose: 1 amp Apixaban (Eliquis -) 2.5 mg PO BID [facility] Last Admin: 01/21/19 10:18 Dose: 2.5 mg Atorvastatin Calcium (Lipitor -) 20 mg PO HS [facility] Last Admin: 01/20/19 22:21 Dose: 20 mg Budesonide/Formoterol Fumarate (Symbicort 80/4.5mcg -) 2 puff IH BID [facility] Last Admin: 01/21/19 10:18 Dose: 2 puff Diltiazem HCl (Cardizem Cd -) 120 mg PO DAILY [facility] Last Admin: 01/21/19 10:17 Dose: 120 mg Sodium Chloride (Normal Saline -) 250 mls @ 3,000 mls/hr IV PRN PRN PRN Reason: Hypotension during Dialysis Stop: 01/19/19 12:05 Metoprolol Succinate (Toprol Xl -) 50 mg PO BID [facility] Last Admin: 01/21/19 10:18 Dose: 50 mg Pantoprazole Sodium (Protonix -) 40 mg PO DAILY [facility] Last Admin: 01/21/19 10:18 Dose: 40 mg Tiotropium [place] (Spiriva Respimat) 2 puff IH DAILY [facility] Last Admin: 01/21/19 10:18 Dose: 2 puff - Objective Vital Signs: Vital Signs Temperature 98 F 01/21/19 09:17 Pulse Rate 88 01/21/19 09:17 Respiratory Rate 20 01/21/19 09:17 Blood Pressure 108/76 01/21/19 09:17 O2 Sat by Pulse Oximetry (%) 92 L 01/21/19 09:45 Constitutional: Yes: Calm Eyes: Yes: Conjunctiva Clear HENT: Yes: Atraumatic Neck: Yes: Supple Cardiovascular: Yes: S1, S2 Respiratory: Yes: On Nasal O2 Gastrointestinal: Yes: Soft, Abdomen, Obese Genitourinary: Yes: Goldstein Present Musculoskeletal: Yes: WNL Edema: Yes Edema: LLE: 1+, RLE: 1+ Neurological: Yes: Oriented Psychiatric: Yes: Oriented Labs: CBC, BMP 01/21/19 06:23 01/21/19 06:23 INR, PTT INR 2.60 (0.83-1.09) H 01/16/19 06:19 Problem List - Problems (1) [id number] kidney injury Code(s): N17.9 - ACUTE KIDNEY FAILURE, UNSPECIFIED; N18.9 - CHRONIC KIDNEY DISEASE, UNSPECIFIED Qualifiers: Chronic kidney disease stage: stage 4 (severe) (2) CHF exacerbation Code(s): I50.9 - HEART FAILURE, UNSPECIFIED Qualifiers: Heart failure type: unspecified Qualified Code(s): I50.9 - Heart failure, unspecified (3) COPD exacerbation Code(s): J44.1 - CHRONIC OBSTRUCTIVE PULMONARY DISEASE W (ACUTE) EXACERBATION Assessment/Plan Current Medications Generic Name Dose Route Start Last Admin Trade Name Freq PRN Reason Stop Dose Admin Acetaminophen 650 mg 01/14/19 16:03 01/15/19 21:21 Tylenol - PO 650 mg Q6H PRN Administration PAIN LEVEL 1-5 Albuterol Sulfate 1 amp 01/14/19 17:48 01/20/19 21:30 Ventolin 0.083% Nebulizer Soln - NEB 1 amp Q4H PRN Administration SHORT OF BREATH/WHEEZING Apixaban 2.5 mg 01/17/19 22:00 01/21/19 10:18 Eliquis - PO 2.5 mg BID KESHAWN Administration Atorvastatin Calcium 20 mg 01/13/19 22:00 01/20/19 22:21 Lipitor - PO 20 mg HS KESHAWN Administration Budesonide/Formoterol Fumarate 2 puff 01/15/19 10:00 01/21/19 10:18 Symbicort 80/4.5mcg - IH 2 puff BID KESHAWN Administration Diltiazem HCl 120 mg 01/14/19 10:00 01/21/19 10:17 Cardizem Cd - PO 120 mg DAILY [facility] Administration Sodium Chloride 250 mls @ 3,000 mls/hr 01/18/19 12:05 Normal Saline - IV 01/19/19 12:05 PRN PRN Hypotension during Dialysis Metoprolol Succinate 50 mg 01/13/19 22:00 01/21/19 10:18 Toprol Xl - PO 50 mg BID KESHAWN Administration Pantoprazole Sodium 40 mg 01/14/19 10:00 01/21/19 10:18 Protonix - PO 40 mg DAILY KESHAWN Administration Tiotropium [place] 2 puff 01/14/19 10:00 01/21/19 10:18 Spiriva Respimat IH 2 puff DAILY KESHAWN Administration Impression 1. CKD 2. PAULA 3. COPD 4. asthma 5. dyspnea 6. HTN 7. a-fib 8. CHF 9. CAD Plan - will hold off HD today - monitor urine output - will give lasix - follow serologies - urine output improving - renal diet for now
--- NOTE | 2019-01-21 13:33 | PN ---
Physical Exam: SUBJECTIVE: 88 y/o F w PMH CKD stage 3a, COPD currently using bipap, pAF, CAD with mixed systolic and diastolic dysfunction, s/p AICD/PPM placement, HTN, and HLD whom initially presented w SOB and admitted for acute on chronic hypoxic and hypercapneic respiratory failure d/t decompensated HF 2/2 to Af with RVR. Pt seen at bedside eating breakfast. She is alert and much improved since yesterday but not oriented. She responds to questions sardonically. She did not participate in interview this morning. OBJECTIVE: Vital Signs Period Temp Pulse Resp BP Sys/Perez Pulse Ox Last 24 Hr 97.6 F-98.4 F 74-88 20-22 97-124/52-76 92-98 GENERAL: The patient is alert, not oriented but responding to verbal commands. Speaking [place] only. HEAD: NCAT EYES: ZAHRAA, EOMI, conjunctiva clear. No ptosis. Wearing corrective lenses. ENT: Ears normal, nares patent, oropharynx clear without exudates, moist mucous membranes. On NC 3L. NECK: Trachea midline, full range of motion, supple. LUNGS: Decreased air entry on RIGHT lower lobe. Clear to auscultation elsewhere. No wheezes, no crackles, no accessory muscle use. HEART: Irregular, S1, S2 without murmur, rub or gallop. ABDOMEN: Obese, soft, tender to palpation at epigastrium, nondistended, normoactive bowel sounds, no guarding, no rebound, no hepatosplenomegaly, no masses. Pain occurs episodically with peristaltic character. EXTREMITIES: 2+ pitting edema in LE BL. 2+ pulses irregular, warm, well- perfused NEUROLOGICAL: Cranial nerves II through XII grossly intact. Normal speech, gait not observed. PSYCH: Normal mood, normal affect. SKIN: RIGHT IJ catheter, Warm, dry, normal turgor, no rashes or lesions noted Laboratory Results - last 24 hr 01/16/19 01/20/19 01/20/19 10:40 16:41 23:15 WBC RBC Hgb Hct MCV MCH MCHC RDW Plt Count MPV Absolute Neuts (auto) Neutrophils % Lymphocytes % Monocytes % Eosinophils % Basophils % Nucleated RBC % Anticoagulation Therapy No Result Required. Puncture Site Right radial ABG pH 7.38 ABG pCO2 at Pt Temp 49.1 H ABG pO2 at Pt Temp 94.9 ABG HCO3 28.3 H ABG O2 Sat (Measured) 97.1 ABG O2 Content 14.0 ABG Base Excess 3.1 H Ankit Test Positive O2 Delivery Device No Result Required. Oxygen Flow Rate 3l Vent Mode No Result Required. Vent Rate No Result Required. Mechanical Rate No Result Required. Pressure Support Vent No Result Required. Sodium Potassium Chloride Carbon Dioxide Anion Gap BUN Creatinine Est GFR (CKD-EPI)AfAm Est GFR (CKD-EPI)NonAf Random Glucose Calcium Phosphorus Magnesium Total Bilirubin AST ALT Alkaline Phosphatase Ammonia 72.80 H Total Protein Total Protein (PEP) 6.1 Albumin Albumin (PEP) 3.1 Globulin 3.0 Albumin/Globulin Ratio 1.0 Beta Globulins 0.9 OZZIE M-Osbaldo Not observed 01/21/19 01/21/19 06:23 06:23 WBC 8.5 RBC 3.82 Hgb 10.3 L Hct 32.8 MCV 86.0 MCH 27.0 MCHC 31.4 L RDW 17.3 H Plt Count 225 MPV 8.2 Absolute Neuts (auto) 6.1 Neutrophils % 71.8 Lymphocytes % 10.9 D Monocytes % 12.5 H Eosinophils % 4.1 D Basophils % 0.7 D Nucleated RBC % 0 Anticoagulation Therapy Puncture Site ABG pH ABG pCO2 at Pt Temp ABG pO2 at Pt Temp ABG HCO3 ABG O2 Sat (Measured) ABG O2 Content ABG Base Excess Ankit Test O2 Delivery Device Oxygen Flow Rate Vent Mode Vent Rate Mechanical Rate Pressure Support Vent Sodium 138 Potassium 3.7 Chloride 99 Carbon Dioxide 30 Anion Gap 9 BUN 44.8 H Creatinine 2.9 H Est GFR (CKD-EPI)AfAm 16.31 Est GFR (CKD-EPI)NonAf 14.07 Random Glucose 99 Calcium 8.3 L Phosphorus 4.1 Magnesium 2.3 Total Bilirubin 0.8 AST 51 H ALT 40 Alkaline Phosphatase 154 H Ammonia Total Protein 5.8 L Total Protein (PEP) Albumin 2.8 L Albumin (PEP) Globulin Albumin/Globulin Ratio Beta Globulins OZZIE M-Osbaldo Active Medications Acetaminophen (Tylenol -) 650 mg PO Q6H PRN PRN Reason: PAIN LEVEL 1-5 Last Admin: 01/15/19 21:21 Dose: 650 mg Albuterol Sulfate (Ventolin 0.083% Nebulizer Soln -) 1 amp NEB Q4H PRN PRN Reason: SHORT OF BREATH/WHEEZING Last Admin: 01/20/19 21:30 Dose: 1 amp Apixaban (Eliquis -) 2.5 mg PO BID [facility] Last Admin: 01/21/19 10:18 Dose: 2.5 mg Atorvastatin Calcium (Lipitor -) 20 mg PO HS [facility] Last Admin: 01/20/19 22:21 Dose: 20 mg Budesonide/Formoterol Fumarate (Symbicort 80/4.5mcg -) 2 puff IH BID [facility] Last Admin: 01/21/19 10:18 Dose: 2 puff Diltiazem HCl (Cardizem Cd -) 120 mg PO DAILY [facility] Last Admin: 01/21/19 10:17 Dose: 120 mg Sodium Chloride (Normal Saline -) 250 mls @ 3,000 mls/hr IV PRN PRN PRN Reason: Hypotension during Dialysis Stop: 01/19/19 12:05 Metoprolol Succinate (Toprol Xl -) 50 mg PO BID [facility] Last Admin: 01/21/19 10:18 Dose: 50 mg Pantoprazole Sodium (Protonix -) 40 mg PO DAILY [facility] Last Admin: 01/21/19 10:18 Dose: 40 mg Tiotropium [place] (Spiriva Respimat) 2 puff IH DAILY [facility] Last Admin: 01/21/19 10:18 Dose: 2 puff ASSESSMENT/PLAN: 88 year old female with history of CRF on COPD (on home oxygen, 3L, currently using bipap), chronic diastolic heart failure, Atrial fibrillation (on Eliquis, s/p PPM), coronary artery disease, hypertension, Chronic LBBB, hyperlipidemia, CKD 4, and Hx CVA, whom presents with shortness of breath worse on exertion, with associated cough. Pt now receiving HD 2/2 rapid BUN increase and worsening kidney function. # Acute Hypoxic/Hypercapneic Respiratory Failure 2/2 acute diastolic CHF decompensation due to non-compliance with prescribed Lasix. - Pt reports taking previous home dose of 20 mg Lasix instead of 40mg - Respiratory status improved with BIPAP and fluid removal on HD - HD x3: Jan 16, , 2018 - Pitting edema 2+ today - Urine output improved to 700 cc over 24 - CXR - worsening congestive changes - Elevated BNP - Cont lasix - Improved with BiPAP, now comfortable on NC - Telemonitoring, I/Os, daily weights. - Cardiology consulted: Metoprolol 50 mg BID and Cardizem CD 120 mg QD with IV Cardizem or Lopressor as needed for rate-control, continue Lipitor 20 mg QHS and Eliquis 2.5 mg BID. Resume Diovan as renal function stabilizes # Acute toxic metabolic encephalopathy - RIGHT IJ catheter placed by surgery - Most likely 2/2 uremia - ABG pending (assess for hypercapnea) - BUN improving - Less confused, still not at baseline mental status - Insomnia: melatonin - US Kidneys: Atrophy, no obstruction - Nephrology consulted # Atrial fibrillation with RVR - Continue Diltiazem, Metoprolol - Eliquis 2.5 mg BID, resumed # PAULA on CKD 4 - Most likely 2/2 cardiorenal syndrome - Pt making urine - Cr improving - Nephrology consulted: No HD today - US Bladder/Kidneys pending: renal atrophy, no obstruction - Continue IV lasix diuresis. I/Os. # Abdominal tenderness - Non-specific epigastric pain/tenderness partially relieved by PPI - AST 113 - Abd CT pending - Abdominal US: Contracted GB with thickened GB wall, withOUT cholelithiasis - Afebrile - Leukocytosis increasing - Monitor for possible cholecystitis - Surgery consulted # HTN - Continue Diltiazem, Metoprolol. - Valsartan held. # HLD - Cont atorvastatin # DM - ISS Novolog # Chronic Respiratory Failure 2/2 COPD/Pulmonary HTN - Refusing bipap - 97% on 3L NC - Current presentation appears not to be in COPD exacerbation - Cont. bronchodilator nebs, Spiriva. - Received IV Solumedrol in ED, will hold further steroid for now. # F/E/N - No standing fluids - Cont. to monitor electrolytes - Low sodium/diabetic diet # DVT prophylaxis - Eliquis # Disposition - Telemetry - Family and patient refusing EDUARD but willing for PT eval to determine ability to go home once medically optimized Jorge Marshall MD Visit type - Emergency Visit Emergency Visit: No - New Patient This patient is new to me today: No - Critical Care Critical Care patient: No - Discharge Referral Referred to [facility] Med P.C.: No ATTENDING PHYSICIAN STATEMENT I saw and evaluated the patient. I reviewed the resident's note and discussed the case with the resident. I agree with the resident's findings and plan as documented. SUBJECTIVE: OBJECTIVE: ASSESSMENT AND PLAN:
[2019-01-21] MEDS ORDERED: FUROSEMIDE 40 MG/4 ML INJECTABLE VIAL IVPUSH ONE (15:00)
[2019-01-21] MEDS ORDERED: MELATONIN 5 MG TABLETS PO ONE (20:54)
[2019-01-21] MEDS: ATORVASTATIN CA 20 MG TABLET (FP) PO SCH (21:57)
[2019-01-22] MEDS: PANTOPRAZOLE 40 MG TABLET (FP) PO SCH (09:36)
[2019-01-22] MEDS: metoPROLOL SUCCINATE 25 MG TAB.SR.24H (FP) PO SCH ×2 (09:36→21:37)
[2019-01-22] MEDS: TIOTROPIUM BROMIDE 2.5 MCG (SPIRIVA) RESPIMAT INHALER IH SCH (09:37)
[2019-01-22] MEDS: APIXABAN 2.5 MG TABLET PO SCH ×2 (09:37→21:38)
[2019-01-22] MEDS: BUDESONIDE/FORMETEROL FUMARATE 80/4.5 mcg INHALER IH SCH ×2 (09:37→21:38)
[2019-01-22 09:40] LABS: BLOOD UREA NITROGEN 55.6 mg/dL (7-18); CALCIUM 8.6 mg/dL (8.5-10.1); POTASSIUM 3.6 mmol/L (3.5-5.1)
--- NOTE | 2019-01-22 10:13 | PN ---
Progress Note, Physician History of Present Illness: Volume status improved after HD, urine output increasing, resuming diuresis, sensorium and uremia improving. - Current Medication List Current Medications: Active Medications Acetaminophen (Tylenol -) 650 mg PO Q6H PRN PRN Reason: PAIN LEVEL 1-5 Last Admin: 01/15/19 21:21 Dose: 650 mg Albuterol Sulfate (Ventolin 0.083% Nebulizer Soln -) 1 amp NEB Q4H PRN PRN Reason: SHORT OF BREATH/WHEEZING Last Admin: 01/20/19 21:30 Dose: 1 amp Apixaban (Eliquis -) 2.5 mg PO BID [facility] Last Admin: 01/22/19 09:37 Dose: 2.5 mg Atorvastatin Calcium (Lipitor -) 20 mg PO HS [facility] Last Admin: 01/21/19 21:57 Dose: 20 mg Budesonide/Formoterol Fumarate (Symbicort 80/4.5mcg -) 2 puff IH BID [facility] Last Admin: 01/22/19 09:37 Dose: 2 puff Diltiazem HCl (Cardizem Cd -) 120 mg PO DAILY [facility] Last Admin: 01/22/19 09:36 Dose: 120 mg Sodium Chloride (Normal Saline -) 250 mls @ 3,000 mls/hr IV PRN PRN PRN Reason: Hypotension during Dialysis Stop: 01/19/19 12:05 Metoprolol Succinate (Toprol Xl -) 50 mg PO BID [facility] Last Admin: 01/22/19 09:36 Dose: 50 mg Pantoprazole Sodium (Protonix -) 40 mg PO DAILY [facility] Last Admin: 01/22/19 09:36 Dose: 40 mg Tiotropium [place] (Spiriva Respimat) 2 puff IH DAILY [facility] Last Admin: 01/22/19 09:37 Dose: 2 puff - Objective Vital Signs: Vital Signs Temperature 98 F 01/22/19 08:17 Pulse Rate 98 H 01/22/19 08:17 Respiratory Rate 18 01/22/19 08:17 Blood Pressure 124/80 01/22/19 08:17 O2 Sat by Pulse Oximetry (%) 93 L 01/21/19 21:00 Constitutional: Yes: No Distress, Calm Neck: Yes: Supple Cardiovascular: Yes: Regular Rate and Rhythm Respiratory: Yes: Regular, Diminished, On Nasal O2 Gastrointestinal: Yes: Normal Bowel Sounds, Soft Edema: Yes Edema: LLE: 1+, RLE: 1+ Labs: CBC, BMP 01/21/19 06:23 01/22/19 08:50 INR, PTT INR 2.60 (0.83-1.09) H 01/16/19 06:19 - ....Imaging Cat Scan: Report Reviewed (Chronic lung disease, right pleural effusion, possible duodenitis) EKG: Report Reviewed (Tele: occ paced) Problem List - Problems (1) Xmcle-gs-wbpitau kidney injury Code(s): N17.9 - ACUTE KIDNEY FAILURE, UNSPECIFIED; N18.9 - CHRONIC KIDNEY DISEASE, UNSPECIFIED Qualifiers: Chronic kidney disease stage: stage 4 (severe) (2) Acute on chronic diastolic CHF (congestive heart failure) Code(s): I50.33 - ACUTE ON CHRONIC DIASTOLIC (CONGESTIVE) HEART FAILURE (3) Acute on chronic respiratory failure with hypoxia and hypercapnia Code(s): J96.21 - ACUTE AND CHRONIC RESPIRATORY FAILURE WITH HYPOXIA; J96.22 - ACUTE AND CHRONIC RESPIRATORY FAILURE WITH HYPERCAPNIA (4) Atrial fibrillation with rapid ventricular response Code(s): I48.91 - UNSPECIFIED ATRIAL FIBRILLATION (5) Chronic anticoagulation Code(s): Z79.01 - CARE HOME (CURRENT) USE OF ANTICOAGULANTS (6) FRYE (dyspnea on exertion) Code(s): R06.09 - OTHER FORMS OF DYSPNEA (7) Hyperlipidemia Code(s): E78.5 - HYPERLIPIDEMIA, UNSPECIFIED Qualifiers: Hyperlipidemia type: pure hypercholesterolemia Qualified Code(s): E78.00 - Pure hypercholesterolemia, unspecified; E78.0 - Pure hypercholesterolemia (8) Pulmonary HTN Code(s): I27.20 - PULMONARY HYPERTENSION, UNSPECIFIED (9) Sleep apnea Code(s): G47.30 - SLEEP APNEA, UNSPECIFIED (10) Toxic metabolic encephalopathy Code(s): G92 - TOXIC ENCEPHALOPATHY Assessment/Plan 01/16/2019 Renal US: atrophic kidneys no hydro 12/25/2018 Echo: Normal LV and RV size and fxn, mod MR, TR RVSP 30-40 mmHg, mild 12/31/2018 Normal renal US 11/03/2018 Echo: Normal LV size and fxn LVEF 55-60%, grade II DD, mild-mod TR RVSP 44 mmHg, mild-mod MG 12 mmHg 11/03/[address]: Emphysema, ILD, pulm HTN 08/16/2015 Echo: Normal LV size with mild cLVH, mod-severe decreased LVEF, mod TR , mild MR, RI 03/09/2015 P=Myoview: No ischemia, LVEF 51% 1. Toxic metabolic encephalopathy due to uremia 2. Acute on chronic hypercapneic, hypoxemic respiratory failure 3. Acute on chronic LV diastolic failure with h/o resolved cardiomyopathy 4. Paroxysmal atrial fibrillation with rapid ventricular response [id number] score of 7-8 now on NOAC 5. 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 CAD negative MPI study for myocardial ischemia 7. Post cardiac pacemaker 8. HTN 9. Hypercholesterolemia 10. History of CVA 11. Acute on CKD on HD 12. Hyponatremia resolved PLAN: 1. Volume removal via HD and diuresis per renal with monitor urine output, renal function and electrolytes 2. Continue Metoprolol 50 mg BID and Cardizem CD 120 mg QD with IV Cardizem or Lopressor as needed for rate-control, continue Lipitor 20 mg QHS and Eliquis 2.5 mg BID. Resume Diovan as renal function stabilizes 3. Bronchodilator, O2 and BIPAP as needed, wrap legs
--- NOTE | 2019-01-22 10:59 | PN ---
Progress Note (short form) - Note Progress Note: Attending Surgeon Seen in f/u; eating; no nausea and/or vomiting; no c/o abdominal pain; passing flatus but no BM in 2 days; daughter present at bedside. VSS AF abdo-soft; non tender; o/w negative. CT scan a/p reviewed IMP: resolved abdominal pain of ?? origin. PLAN: GI evaluation for completeness; clinical course is not c/w acute appendicitis or the other CT findings Moncho Hightower MD FACS
--- NOTE | 2019-01-22 13:50 | PN ---
Progress Note (short form) - Note Progress Note: Rt DILLON lee placed at bedside 01/16/19 Nephroology note appreciated with regards to renal function improving Holding off on HD at this time Monitoring urine output. If recovers, please call surgery to remove rosa
--- NOTE | 2019-01-22 14:45 | PN ---
Progress Note, Physician History of Present Illness: Pt seen and examined at bedside. She complains of lower ext edema. She did not respond much to lasix yesterday. - Current Medication List Current Medications: Active Medications Acetaminophen (Tylenol -) 650 mg PO Q6H PRN PRN Reason: PAIN LEVEL 1-5 Last Admin: 01/15/19 21:21 Dose: 650 mg Albuterol Sulfate (Ventolin 0.083% Nebulizer Soln -) 1 amp NEB Q4H PRN PRN Reason: SHORT OF BREATH/WHEEZING Last Admin: 01/20/19 21:30 Dose: 1 amp Apixaban (Eliquis -) 2.5 mg PO BID [facility] Last Admin: 01/22/19 09:37 Dose: 2.5 mg Atorvastatin Calcium (Lipitor -) 20 mg PO HS [facility] Last Admin: 01/21/19 21:57 Dose: 20 mg Budesonide/Formoterol Fumarate (Symbicort 80/4.5mcg -) 2 puff IH BID [facility] Last Admin: 01/22/19 09:37 Dose: 2 puff Diltiazem HCl (Cardizem Cd -) 120 mg PO DAILY [facility] Last Admin: 01/22/19 09:36 Dose: 120 mg Metoprolol Succinate (Toprol Xl -) 50 mg PO BID [facility] Last Admin: 01/22/19 09:36 Dose: 50 mg Pantoprazole Sodium (Protonix -) 40 mg PO DAILY [facility] Last Admin: 01/22/19 09:36 Dose: 40 mg Tiotropium [place] (Spiriva Respimat) 2 puff IH DAILY [facility] Last Admin: 01/22/19 09:37 Dose: 2 puff - Objective Vital Signs: Vital Signs Temperature 98 F 01/22/19 08:17 Pulse Rate 98 H 01/22/19 08:17 Respiratory Rate 18 01/22/19 08:17 Blood Pressure 124/80 01/22/19 08:17 O2 Sat by Pulse Oximetry (%) 93 L 01/21/19 21:00 Constitutional: Yes: Calm Eyes: Yes: Conjunctiva Clear HENT: Yes: Atraumatic Neck: Yes: Supple Cardiovascular: Yes: S1, S2 Respiratory: Yes: On Nasal O2 Gastrointestinal: Yes: Soft, Abdomen, Obese Genitourinary: Yes: Goldstein Present, Oliguria Musculoskeletal: Yes: WNL Edema: Yes Edema: LLE: 2+, RLE: 2+ Neurological: Yes: Oriented Psychiatric: Yes: Oriented Labs: CBC, BMP 01/21/19 06:23 01/22/19 08:50 INR, PTT INR 2.60 (0.83-1.09) H 01/16/19 06:19 Problem List - Problems (1) Dhmzy-br-tonevlv kidney injury Code(s): N17.9 - ACUTE KIDNEY FAILURE, UNSPECIFIED; N18.9 - CHRONIC KIDNEY DISEASE, UNSPECIFIED Qualifiers: Chronic kidney disease stage: stage 4 (severe) (2) CHF exacerbation Code(s): I50.9 - HEART FAILURE, UNSPECIFIED Qualifiers: Heart failure type: unspecified Qualified Code(s): I50.9 - Heart failure, unspecified (3) COPD exacerbation Code(s): J44.1 - CHRONIC OBSTRUCTIVE PULMONARY DISEASE W (ACUTE) EXACERBATION Assessment/Plan Current Medications Generic Name Dose Route Start Last Admin Trade Name Freq PRN Reason Stop Dose Admin Acetaminophen 650 mg 01/14/19 16:03 01/15/19 21:21 Tylenol - PO 650 mg Q6H PRN Administration PAIN LEVEL 1-5 Albuterol Sulfate 1 amp 01/14/19 17:48 01/20/19 21:30 Ventolin 0.083% Nebulizer Soln - NEB 1 amp Q4H PRN Administration SHORT OF BREATH/WHEEZING Apixaban 2.5 mg 01/17/19 22:00 01/22/19 09:37 Eliquis - PO 2.5 mg BID KESHAWN Administration Atorvastatin Calcium 20 mg 01/13/19 22:00 01/21/19 21:57 Lipitor - PO 20 mg HS KESHAWN Administration Budesonide/Formoterol Fumarate 2 puff 01/15/19 10:00 01/22/19 09:37 Symbicort 80/4.5mcg - IH 2 puff BID KESHAWN Administration Diltiazem HCl 120 mg 01/14/19 10:00 01/22/19 09:36 Cardizem Cd - PO 120 mg DAILY KESHAWN Administration Metoprolol Succinate 50 mg 01/13/19 22:00 01/22/19 09:36 Toprol Xl - PO 50 mg BID KESHAWN Administration Pantoprazole Sodium 40 mg 01/14/19 10:00 01/22/19 09:36 Protonix - PO 40 mg DAILY KESHAWN Administration Tiotropium [place] 2 puff 01/14/19 10:00 01/22/19 09:37 Spiriva Respimat IH 2 puff DAILY KESHAWN Administration Impression 1. CKD 2. PAULA 3. COPD 4. asthma 5. dyspnea 6. HTN 7. a-fib 8. CHF 9. CAD Plan - pt remains oliguric - will dialyze today - will re-evaluate in am - will also add standing order of lasix - follow serologies, still pending - renal diet for now
[2019-01-22] MEDS ORDERED: POTASSIUM CHLORIDE TABS 10 MEQ TABLET.ER (FP) PO ONE (15:00)
--- NOTE | 2019-01-22 15:01 | PN ---
Teaching Attending Note Name of Resident: Jorge Marshall ATTENDING PHYSICIAN STATEMENT I saw and evaluated the patient. I reviewed the resident's note and discussed the case with the resident. I agree with the resident's findings and plan as documented. SUBJECTIVE:asymptomatic. denies Cp, SOB, fever, chills, N/V/C/D OBJECTIVE: Last Vital Signs Temp Pulse Resp BP Pulse Ox 98 F 98 H 18 124/80 93 L 01/22/19 08:17 01/22/19 08:17 01/22/19 08:17 01/22/19 08:01/21/19 21:00 Intake & Output 01/19/19 01/20/19 01/21/19 01/22/19 23:59 23:59 23:59 23:59 Intake Total 550 680 10 0 Output Total 600 950 350 400 Balance -50 -270 -340 -400 Weight 135 lb 9.6 oz 136 lb 6.4 oz 138 lb 140 lb General NAD CV S1 S2 irregular Lungs decrease base, poor inspiratory effort Abdomen soft RUQ tenderness Extremities 1+ pitting edema B/L ASSESSMENT AND PLAN: 88 year old female with history of CRF on COPD (on home oxygen, 3L), chronic diastolic heart failure, Atrial fibrillation (on Eliquis, s/p PPM), coronary artery disease, hypertension, Chronic LBBB, hyperlipidemia, CKD 4, Hx CVA, presents with shortness of breath worse on exertion, with associated cough. No sputum/hemoptysis. 1. Acute on chronic Hypoxic/Hypercapneic Respiratory Failure secondary to acute diastolic CHF decompensation due to non-compliance with prescribed Lasix. currently 97% on 3L NC. no response to lasix and started on HD. x3 sessions at this point. received lasix IV yesterday with low response. will discuss with nephro about lasix challenge at this time. likely no plan for HD today. will f/ u if HD catheter can be removed. Respiratory status improved with BIPAP and fluid removal on HD. Cardiology/ Nephrology following. 2. Acute toxic metabolic encephalopathy- due to uremia. alert and at baseline. 3. Atrial fibrillation with RVR - Continue Diltiazem, Metoprolol. Eliquis 2.5mg BID 4. HTN - Continue Diltiazem, Metoprolol. 5. HLD - Continue Atorvastatin 6. CRF sec to COPD/Pulmonary HTN - on Home O2. Appears not to be in COPD exacerbation. Continue Bronchodilator Nebs, Spiriva. Received IV Solumedrol in ED, will hold further steroid for now. 7. Non-specific epigastric pain/tenderness- Bili trended down, having RUQ tenderness. will get CT to further evaluate. will call back surgery if needed. 8. DVT Px - on Eliquis 9. PT assessment. family and patient refusing EDUARD but willing for PT eval to determine ability to go home once medically optimized
[2019-01-22] MEDS ORDERED: SODIUM CHLORIDE 250 ML IV PRN (15:46)
--- NOTE | 2019-01-22 17:08 | PN ---
Physical Exam: SUBJECTIVE: 88 y/o F w PMH CKD stage 3a, COPD currently using bipap, pAF, CAD with mixed systolic and diastolic dysfunction, s/p AICD/PPM placement, HTN, and HLD whom initially presented w SOB and admitted for acute on chronic hypoxic and hypercapneic respiratory failure d/t decompensated HF 2/2 to [facility] with RVR. Pt seen at bedside eating breakfast. She is alert and much improved since yesterday but not oriented. She responds to questions sardonically. She did not participate in interview this morning. OBJECTIVE: Vital Signs Period Temp Pulse Resp BP Sys/Perez Pulse Ox Last 24 Hr 97.4 F-98.1 F 65-104 18-92 98-124/61-80 93-99 GENERAL: The patient is alert nd oriented x3. Speaking [place] Citizen only. HEAD: NCAT EYES: ZAHRAA, EOMI, conjunctiva clear. No ptosis. Wearing corrective lenses. ENT: Ears normal, nares patent, oropharynx clear without exudates, moist mucous membranes. On NC 3L. NECK: Trachea midline, full range of motion, supple. LUNGS: Decreased air entry on RIGHT lower lobe. Clear to auscultation elsewhere. No wheezes, no crackles, no accessory muscle use. HEART: Irregular, S1, S2 without murmur, rub or gallop. ABDOMEN: Obese, soft, nontender today to palpation, nondistended, normoactive bowel sounds, no guarding, no rebound, no hepatosplenomegaly, no masses. EXTREMITIES: 2+ pitting edema in LE BL. 2+ pulses irregular, warm, well- perfused NEUROLOGICAL: Cranial nerves II through XII grossly intact. Normal speech, gait not observed. PSYCH: Normal mood, normal affect. SKIN: RIGHT IJ catheter, Warm, dry, normal turgor, no rashes or lesions noted Laboratory Results - last 24 hr 01/22/19 08:50 Sodium 139 Potassium 3.6 Chloride 99 Carbon Dioxide 29 Anion Gap 11 BUN 55.6 H Creatinine 3.0 H Est GFR (CKD-EPI)AfAm 15.65 Est GFR (CKD-EPI)NonAf 13.50 Random Glucose 195 H Calcium 8.6 Lipase 614 H Active Medications Acetaminophen (Tylenol -) 650 mg PO Q6H PRN PRN Reason: PAIN LEVEL 1-5 Last Admin: 01/15/19 21:21 Dose: 650 mg Albuterol Sulfate (Ventolin 0.083% Nebulizer Soln -) 1 amp NEB Q4H PRN PRN Reason: SHORT OF BREATH/WHEEZING Last Admin: 01/20/19 21:30 Dose: 1 amp Apixaban (Eliquis -) 2.5 mg PO BID [facility] Last Admin: 01/22/19 21:38 Dose: 2.5 mg Atorvastatin Calcium (Lipitor -) 20 mg PO HS [facility] Last Admin: 01/22/19 21:38 Dose: 20 mg Budesonide/Formoterol Fumarate (Symbicort 80/4.5mcg -) 2 puff IH BID [facility] Last Admin: 01/22/19 21:38 Dose: 2 puff Diltiazem HCl (Cardizem Cd -) 120 mg PO DAILY [facility] Last Admin: 01/22/19 09:36 Dose: 120 mg Sodium Chloride (Normal Saline -) 250 mls @ 3,000 mls/hr IV PRN PRN PRN Reason: Hypotension during Dialysis Stop: 01/23/19 15:45 Metoprolol Succinate (Toprol Xl -) 50 mg PO BID [facility] Last Admin: 01/22/19 21:37 Dose: 50 mg Pantoprazole Sodium (Protonix -) 40 mg PO DAILY [facility] Last Admin: 01/22/19 09:36 Dose: 40 mg Tiotropium [place] (Spiriva Respimat) 2 puff IH DAILY [facility] Last Admin: 01/22/19 09:37 Dose: 2 puff ASSESSMENT/PLAN: 88 year old female with history of CRF on COPD (on home oxygen, 3L, currently using bipap), chronic diastolic heart failure, Atrial fibrillation (on Eliquis, s/p PPM), coronary artery disease, hypertension, Chronic LBBB, hyperlipidemia, CKD 4, and Hx CVA, whom presents with shortness of breath worse on exertion, with associated cough. Pt now receiving HD 2/2 rapid BUN increase and worsening kidney function. # Acute Hypoxic/Hypercapneic Respiratory Failure 2/2 acute diastolic CHF decompensation due to non-compliance with prescribed Lasix. - Pt reports taking previous home dose of 20 mg Lasix instead of 40mg - Respiratory status improved with BIPAP and fluid removal on HD - HD x3: Jan 16, , 2018 - Pitting edema 2+ today - Urine output improved to 700 cc over 24 - CXR - worsening congestive changes - Elevated BNP - Cont lasix - Improved with BiPAP, now comfortable on NC - Telemonitoring, I/Os, daily weights. - Cardiology consulted: Metoprolol 50 mg BID and Cardizem CD 120 mg QD with IV Cardizem or Lopressor as needed for rate-control, continue Lipitor 20 mg QHS and Eliquis 2.5 mg BID. Resume Diovan as renal function stabilizes # Acute toxic metabolic encephalopathy - RIGHT IJ catheter in place - Most likely 2/2 uremia - ABG pending (assess for hypercapnea) - BUN improving - Less confused, still not at baseline mental status - Insomnia: melatonin - US Kidneys: Atrophy, no obstruction - Nephrology consulted # Atrial fibrillation with RVR - Continue Diltiazem, Metoprolol - Eliquis 2.5 mg BID, resumed # PAULA on CKD 4 - Most likely 2/2 cardiorenal syndrome - Oliguric but pt making urine ~ 300 cc - Cr improving - Nephrology consulted: Plan for HD today - US Bladder/Kidneys pending: renal atrophy, no obstruction - Continue IV lasix diuresis. I/Os. # Abdominal tenderness - Non-specific epigastric pain/tenderness partially relieved by PPI - AST 113 - Abd CT pending - Abdominal US: Contracted GB with thickened GB wall, withOUT cholelithiasis - Afebrile - Leukocytosis increasing - Monitor for possible cholecystitis - Surgery consulted: GI evaluation for completeness; clinical course is not c/w acute appendicitis or the other CT findings # HTN - Continue Diltiazem, Metoprolol. - Valsartan held. # HLD - Cont atorvastatin # DM - ISS Novolog # Chronic Respiratory Failure 2/2 COPD/Pulmonary HTN - Refusing bipap - 97% on 3L NC - Current presentation appears not to be in COPD exacerbation - Cont. bronchodilator nebs, Spiriva. - Received IV Solumedrol in ED, will hold further steroid for now. # F/E/N - No standing fluids - Cont. to monitor electrolytes - Low sodium/diabetic diet # DVT prophylaxis - Eliquis # Disposition - Telemetry - Family and patient refusing EDUARD but willing for PT eval to determine ability to go home once medically optimized Jorge Marshall MD Visit type - Emergency Visit Emergency Visit: No - New Patient This patient is new to me today: No - Critical Care Critical Care patient: No - Discharge Referral Referred to [facility] No ATTENDING PHYSICIAN STATEMENT I saw and evaluated the patient. I reviewed the resident's note and discussed the case with the resident. I agree with the resident's findings and plan as documented. SUBJECTIVE: OBJECTIVE: ASSESSMENT AND PLAN:
[2019-01-22] MEDS ORDERED: MELATONIN 5 MG TABLETS PO ONE ×2 (21:24→21:33)
[2019-01-22] MEDS: ATORVASTATIN CA 20 MG TABLET (FP) PO SCH (21:38)
[2019-01-23 07:41] LABS: BLOOD UREA NITROGEN 29.2 mg/dL (7-18); CALCIUM 8.8 mg/dL (8.5-10.1); CREATININE 2.2 mg/dL (0.55-1.3); POTASSIUM 3.9 mmol/L (3.5-5.1)
--- NOTE | 2019-01-23 10:02 | PN ---
Progress Note, Physician History of Present Illness: Patient reports LE edema, HD resumed, remains oliguric, resuming diuresis, sensorium and uremia improving. - Current Medication List Current Medications: Active Medications Acetaminophen (Tylenol -) 650 mg PO Q6H PRN PRN Reason: PAIN LEVEL 1-5 Last Admin: 01/15/19 21:21 Dose: 650 mg Albuterol Sulfate (Ventolin 0.083% Nebulizer Soln -) 1 amp NEB Q4H PRN PRN Reason: SHORT OF BREATH/WHEEZING Last Admin: 01/20/19 21:30 Dose: 1 amp Apixaban (Eliquis -) 2.5 mg PO BID [facility] Last Admin: 01/22/19 21:38 Dose: 2.5 mg Atorvastatin Calcium (Lipitor -) 20 mg PO HS [facility] Last Admin: 01/22/19 21:38 Dose: 20 mg Budesonide/Formoterol Fumarate (Symbicort 80/4.5mcg -) 2 puff IH BID [facility] Last Admin: 01/22/19 21:38 Dose: 2 puff Diltiazem HCl (Cardizem Cd -) 120 mg PO DAILY [facility] Last Admin: 01/22/19 09:36 Dose: 120 mg Sodium Chloride (Normal Saline -) 250 mls @ 3,000 mls/hr IV PRN PRN PRN Reason: Hypotension during Dialysis Stop: 01/23/19 15:45 Metoprolol Succinate (Toprol Xl -) 50 mg PO BID [facility] Last Admin: 01/22/19 21:37 Dose: 50 mg Pantoprazole Sodium (Protonix -) 40 mg PO DAILY [facility] Last Admin: 01/22/19 09:36 Dose: 40 mg Tiotropium [place] (Spiriva Respimat) 2 puff IH DAILY [facility] Last Admin: 01/22/19 09:37 Dose: 2 puff - Objective Vital Signs: Vital Signs Temperature 98.3 F 01/23/19 06:00 Pulse Rate 67 01/23/19 07:55 Respiratory Rate 20 01/23/19 02:00 Blood Pressure 105/71 01/23/19 06:00 O2 Sat by Pulse Oximetry (%) 97 01/23/19 07:55 Constitutional: Yes: No Distress, Calm Neck: Yes: Supple Cardiovascular: Yes: Regular Rate and Rhythm Respiratory: Yes: Regular, Diminished Gastrointestinal: Yes: Normal Bowel Sounds, Soft, Abdomen, Obese Edema: Yes Edema: LLE: 2+, RLE: 2+ Labs: CBC, BMP 01/21/19 06:23 01/23/19 05:42 INR, PTT INR 2.60 (0.83-1.09) H 01/16/19 06:19 - ....Imaging EKG: Report Reviewed (Tele:) Problem List - Problems (1) Fyodz-ir-rlzvfce kidney injury Code(s): N17.9 - ACUTE KIDNEY FAILURE, UNSPECIFIED; N18.9 - CHRONIC KIDNEY DISEASE, UNSPECIFIED Qualifiers: Chronic kidney disease stage: stage 4 (severe) (2) Acute on chronic diastolic CHF (congestive heart failure) Code(s): I50.33 - ACUTE ON CHRONIC DIASTOLIC (CONGESTIVE) HEART FAILURE (3) Acute on chronic respiratory failure with hypoxia and hypercapnia Code(s): J96.21 - ACUTE AND CHRONIC RESPIRATORY FAILURE WITH HYPOXIA; J96.22 - ACUTE AND CHRONIC RESPIRATORY FAILURE WITH HYPERCAPNIA (4) Atrial fibrillation with rapid ventricular response Code(s): I48.91 - UNSPECIFIED ATRIAL FIBRILLATION (5) Chronic anticoagulation Code(s): Z79.01 - PENITENTIARY (CURRENT) USE OF ANTICOAGULANTS (6) FRYE (dyspnea on exertion) Code(s): R06.09 - OTHER FORMS OF DYSPNEA (7) Hyperlipidemia Code(s): E78.5 - HYPERLIPIDEMIA, UNSPECIFIED Qualifiers: Hyperlipidemia type: pure hypercholesterolemia Qualified Code(s): E78.00 - Pure hypercholesterolemia, unspecified; E78.0 - Pure hypercholesterolemia (8) Pulmonary HTN Code(s): I27.20 - PULMONARY HYPERTENSION, UNSPECIFIED (9) Sleep apnea Code(s): G47.30 - SLEEP APNEA, UNSPECIFIED (10) Toxic metabolic encephalopathy Code(s): G92 - TOXIC ENCEPHALOPATHY Assessment/Plan 01/16/2019 Renal US: atrophic kidneys no hydro 12/25/2018 Echo: Normal LV and RV size and fxn, mod MR, TR RVSP 30-40 mmHg, mild 12/31/2018 Normal renal US 11/03/2018 Echo: Normal LV size and fxn LVEF 55-60%, grade II DD, mild-mod TR RVSP 44 mmHg, mild-mod MG 12 mmHg 11/03/[address]: Emphysema, ILD, pulm HTN 08/16/2015 Echo: Normal LV size with mild cLVH, mod-severe decreased LVEF, mod TR , mild MR, CA 03/09/2015 P=Myoview: No ischemia, LVEF 51% 1. Toxic metabolic encephalopathy due to uremia 2. Acute on chronic hypercapneic, hypoxemic respiratory failure 3. Acute on chronic LV diastolic failure with h/o resolved cardiomyopathy 4. Paroxysmal atrial fibrillation with rapid ventricular response [id number] score of 7-8 now on NOAC 5. 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 CAD negative MPI study for myocardial ischemia 7. Post cardiac pacemaker 8. HTN 9. Hypercholesterolemia 10. History of CVA 11. Acute on CKD on HD 12. Hyponatremia resolved PLAN: 1. Volume removal via HD and diuresis per renal with monitor urine output, renal function and electrolytes 2. Continue Metoprolol 50 mg BID and Cardizem CD 120 mg QD with IV Cardizem or Lopressor as needed for rate-control, continue Lipitor 20 mg QHS and Eliquis 2.5 mg BID. Resume Diovan as renal function stabilizes 3. Bronchodilator, O2 and BIPAP as needed, wrap legs
[2019-01-23] MEDS: APIXABAN 2.5 MG TABLET PO SCH ×2 (11:11→21:45)
[2019-01-23] MEDS: BUDESONIDE/FORMETEROL FUMARATE 80/4.5 mcg INHALER IH SCH ×2 (11:11→21:46)
[2019-01-23] MEDS: PANTOPRAZOLE 40 MG TABLET (FP) PO SCH (11:11)
[2019-01-23] MEDS: TIOTROPIUM BROMIDE 2.5 MCG (SPIRIVA) RESPIMAT INHALER IH SCH (11:11)
[2019-01-23] MEDS: metoPROLOL SUCCINATE 25 MG TAB.SR.24H (FP) PO SCH ×2 (11:11→21:45)
--- NOTE | 2019-01-23 12:13 | PN ---
Progress Note, Physician History of Present Illness: Pt seen and examined at bedside. She is awake and alert. She complains of lower ext edema. - Current Medication List Current Medications: Active Medications Acetaminophen (Tylenol -) 650 mg PO Q6H PRN PRN Reason: PAIN LEVEL 1-5 Last Admin: 01/15/19 21:21 Dose: 650 mg Albuterol Sulfate (Ventolin 0.083% Nebulizer Soln -) 1 amp NEB Q4H PRN PRN Reason: SHORT OF BREATH/WHEEZING Last Admin: 01/20/19 21:30 Dose: 1 amp Apixaban (Eliquis -) 2.5 mg PO BID [facility] Last Admin: 01/23/19 11:11 Dose: 2.5 mg Atorvastatin Calcium (Lipitor -) 20 mg PO HS [facility] Last Admin: 01/22/19 21:38 Dose: 20 mg Budesonide/Formoterol Fumarate (Symbicort 80/4.5mcg -) 2 puff IH BID [facility] Last Admin: 01/23/19 11:11 Dose: 2 puff Diltiazem HCl (Cardizem Cd -) 120 mg PO DAILY [facility] Last Admin: 01/23/19 11:11 Dose: 120 mg Sodium Chloride (Normal Saline -) 250 mls @ 3,000 mls/hr IV PRN PRN PRN Reason: Hypotension during Dialysis Stop: 01/23/19 15:45 Metoprolol Succinate (Toprol Xl -) 50 mg PO BID [facility] Last Admin: 01/23/19 11:11 Dose: 50 mg Pantoprazole Sodium (Protonix -) 40 mg PO DAILY [facility] Last Admin: 01/23/19 11:11 Dose: 40 mg Tiotropium [place] (Spiriva Respimat) 2 puff IH DAILY [facility] Last Admin: 01/23/19 11:11 Dose: 2 puff - Objective Vital Signs: Vital Signs Temperature 98.3 F 01/23/19 06:00 Pulse Rate 67 01/23/19 07:55 Respiratory Rate 20 01/23/19 02:00 Blood Pressure 105/71 01/23/19 06:00 O2 Sat by Pulse Oximetry (%) 97 01/23/19 07:55 Constitutional: Yes: Calm Eyes: Yes: Conjunctiva Clear HENT: Yes: Atraumatic Neck: Yes: Supple Cardiovascular: Yes: S1, S2 Respiratory: Yes: CTA Bilaterally Gastrointestinal: Yes: Soft Genitourinary: Yes: [place]stein Present, Oliguria Edema: Yes Edema: LLE: 2+, RLE: 2+ Neurological: Yes: Oriented Psychiatric: Yes: Oriented Labs: CBC, BMP 01/21/19 06:23 01/23/19 05:42 INR, PTT INR 2.60 (0.83-1.09) H 01/16/19 06:19 Problem List - Problems (1) Opckt-ru-[id number] kidney injury Code(s): N17.9 - ACUTE KIDNEY FAILURE, UNSPECIFIED; N18.9 - CHRONIC KIDNEY DISEASE, UNSPECIFIED Qualifiers: Chronic kidney disease stage: stage 4 (severe) (2) CHF exacerbation Code(s): I50.9 - HEART FAILURE, UNSPECIFIED Qualifiers: Heart failure type: unspecified Qualified Code(s): I50.9 - Heart failure, unspecified (3) COPD exacerbation Code(s): J44.1 - CHRONIC OBSTRUCTIVE PULMONARY DISEASE W (ACUTE) EXACERBATION Assessment/Plan Current Medications Generic Name Dose Route Start Last Admin Trade Name Freq PRN Reason Stop Dose Admin Acetaminophen 650 mg 01/14/19 16:03 01/15/19 21:21 Tylenol - PO 650 mg Q6H PRN Administration PAIN LEVEL 1-5 Albuterol Sulfate 1 amp 01/14/19 17:48 01/20/19 21:30 Ventolin 0.083% Nebulizer Soln - NEB 1 amp Q4H PRN Administration SHORT OF BREATH/WHEEZING Apixaban 2.5 mg 01/17/19 22:00 01/23/19 11:11 Eliquis - PO 2.5 mg BID KESHAWN Administration Atorvastatin Calcium 20 mg 01/13/19 22:00 01/22/19 21:38 Lipitor - PO 20 mg HS KESHAWN Administration Budesonide/Formoterol Fumarate 2 puff 01/15/19 10:00 01/23/19 11:11 Symbicort 80/4.5mcg - IH 2 puff BID KESHAWN Administration Diltiazem HCl 120 mg 01/14/19 10:00 01/23/19 11:11 Cardizem Cd - PO 120 mg DAILY KESHAWN Administration Sodium Chloride 250 mls @ 3,000 mls/hr 01/22/19 15:46 Normal Saline - IV 01/23/19 15:45 PRN PRN Hypotension during Dialysis Metoprolol Succinate 50 mg 01/13/19 22:00 01/23/19 11:11 Toprol Xl - PO 50 mg BID KESHAWN Administration Pantoprazole Sodium 40 mg 01/14/19 10:00 01/23/19 11:11 Protonix - PO 40 mg DAILY KESHAWN Administration Tiotropium [place] 2 puff 01/14/19 10:00 01/23/19 11:11 Spiriva Respimat IH 2 puff DAILY KESHAWN Administration Laboratory Tests 01/16/19 01/16/19 01/21/19 10:40 10:40 06:23 OZZIE M-Osbaldo Pending ALISA Screen Negative c-ANCA Pending Pending Proteinase 3 (PR3) Pending Pending p-ANCA Pending Pending Atypical p-ANCA Pending Pending Myeloperoxidase Ab Pending Pending Double Strand DNA Ab <1 Impression 1. CKD 2. PAULA 3. COPD 4. asthma 5. dyspnea 6. HTN 7. a-fib 8. CHF 9. CAD Plan - pt diayzed yesterday - restart IV lasix - monitor urine output - check inr, spoke to surgery to remove catheter - if renal function does not stabilize will place permacath next week - follow serologies, still pending - renal diet for now
--- NOTE | 2019-01-23 12:32 | PN ---
Teaching Attending Note Name of Resident: Jorge Marshall ATTENDING PHYSICIAN STATEMENT I saw and evaluated the patient. I reviewed the resident's note and discussed the case with the resident. I agree with the resident's findings and plan as documented. SUBJECTIVE:no new complaints. denies Cp, SOB, fever, chills, N/V/C/D OBJECTIVE: Last Vital Signs Temp Pulse Resp BP Pulse Ox 98.3 F 67 20 105/71 97 01/23/19 06:00 01/23/19 07:55 01/23/19 02:00 01/23/19 06:00 01/23/19 07:55 Intake & Output 01/20/19 01/21/19 01/22/19 01/23/19 23:59 23:59 23:59 23:59 Intake Total 680 10 10 0 Output Total 578 273 8068 Balance -270 -340 -1390 0 Weight 136 lb 6.4 oz 138 lb 140 lb 140 lb 12.8 oz General NAD CV S1 S2 irregular Lungs decrease base, poor inspiratory effort Abdomen soft RUQ tenderness Extremities 1+ pitting edema B/L ASSESSMENT AND PLAN: 88 year old female with history of CRF on COPD (on home oxygen, 3L), chronic diastolic heart failure, Atrial fibrillation (on Eliquis, s/p PPM), coronary artery disease, hypertension, Chronic LBBB, hyperlipidemia, CKD 4, Hx CVA, presents with shortness of breath worse on exertion, with associated cough. No sputum/hemoptysis. 1. Acute on chronic Hypoxic/Hypercapneic Respiratory Failure secondary to acute diastolic CHF decompensation due to non-compliance with prescribed Lasix. currently 97% on 3L NC. no response to lasix and started on HD. x4 sessions at this point. had HD session yesterday and tolerated well. plan to re-start lasix IV and will see if responds over the weekend. if she does not will need permacath placement and outpatient HD arranged. Respiratory status improved with BIPAP and fluid removal on HD. Cardiology/ Nephrology following. 2. Acute toxic metabolic encephalopathy- due to uremia. alert and at baseline. 3. Atrial fibrillation with RVR - Continue Diltiazem, Metoprolol. Eliquis 2.5mg BID 4. HTN - Continue Diltiazem, Metoprolol. 5. HLD - Continue Atorvastatin 6. CRF sec to COPD/Pulmonary HTN - on Home O2. Appears not to be in COPD exacerbation. Continue Bronchodilator Nebs, Spiriva. Received IV Solumedrol in ED, will hold further steroid for now. 7. Non-specific epigastric pain/tenderness- Bili trended down, having RUQ tenderness. will get CT to further evaluate. will call back surgery if needed. 8. DVT Px - on Eliquis 9. PT assessment. family and patient refusing EDUARD but willing for PT eval to determine ability to go home once medically optimized ASSESSMENT AND PLAN:
--- NOTE | 2019-01-23 14:00 | PN ---
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 No acute events overnight. She is s/p HS with 1 L of fluid removed. Pt seen at bedside resting comfortably. She denies further abdominal pain. Pt appears back to baseline. She denies NVFD. Shiley to be removed today. OBJECTIVE: Vital Signs Period Temp Pulse Resp BP Sys/Perez Pulse Ox Last 24 Hr 97.6 F-98.3 F 59-98 18-20 91-122/49-73 95-97 GENERAL: The patient is alert nd oriented x3. Speaking Serbian only. HEAD: NCAT EYES: ZAHRAA, EOMI, conjunctiva clear. No ptosis. Wearing corrective lenses. ENT: Ears normal, nares patent, oropharynx clear without exudates, moist mucous membranes. On NC 3L. NECK: Trachea midline, full range of motion, supple. LUNGS: Decreased air entry on RIGHT lower lobe. Clear to auscultation elsewhere. No wheezes, no crackles, no accessory muscle use. HEART: Irregular, S1, S2 without murmur, rub or gallop. ABDOMEN: Obese, soft, nontender today to palpation, nondistended, normoactive bowel sounds, no guarding, no rebound, no hepatosplenomegaly, no masses. EXTREMITIES: 2+ pitting edema in LE BL. 2+ pulses irregular, warm, well- perfused NEUROLOGICAL: Cranial nerves II through XII grossly intact. Normal speech, gait not observed. PSYCH: Normal mood, normal affect. SKIN: RIGHT IJ catheter, Warm, dry, normal turgor, no rashes or lesions noted Laboratory Results - last 24 hr 01/23/19 05:42 Sodium 137 Potassium 3.9 Chloride 98 Carbon Dioxide 29 Anion Gap 10 BUN 29.2 H Creatinine 2.2 H Est GFR (CKD-EPI)AfAm 22.77 Est GFR (CKD-EPI)NonAf 19.65 Random Glucose 101 Calcium 8.8 Active Medications Acetaminophen (Tylenol -) 650 mg PO Q6H PRN PRN Reason: PAIN LEVEL 1-5 Last Admin: 01/15/19 21:21 Dose: 650 mg Apixaban (Eliquis -) 2.5 mg PO BID [facility] Last Admin: 01/24/19 10:17 Dose: 2.5 mg Atorvastatin Calcium (Lipitor -) 20 mg PO HS [facility] Last Admin: 01/23/19 21:45 Dose: 20 mg Budesonide/Formoterol Fumarate (Symbicort 80/4.5mcg -) 2 puff IH BID [facility] Last Admin: 01/24/19 10:18 Dose: 2 puff Diltiazem HCl (Cardizem Cd -) 120 mg PO DAILY [facility] Last Admin: 01/24/19 10:17 Dose: 120 mg Furosemide (Lasix Injection -) 40 mg IVPUSH BID@0600,1400 [facility] Metoprolol Succinate (Toprol Xl -) 50 mg PO BID [facility] Last Admin: 01/24/19 10:17 Dose: 50 mg Pantoprazole Sodium (Protonix -) 40 mg PO DAILY [facility] Last Admin: 01/24/19 10:17 Dose: 40 mg Tiotropium [place] (Spiriva Respimat) 2 puff IH DAILY [facility] Last Admin: 01/24/19 10:18 Dose: 2 puff ASSESSMENT/PLAN: 88 year old female with history of CRF on COPD (on home oxygen, 3L, currently using bipap), chronic diastolic heart failure, Atrial fibrillation (on Eliquis, s/p PPM), coronary artery disease, hypertension, Chronic LBBB, hyperlipidemia, CKD 4, and Hx CVA, whom presents with shortness of breath worse on exertion, with associated cough. Pt now receiving HD 2/2 rapid BUN increase and worsening kidney function. # Acute Hypoxic/Hypercapneic Respiratory Failure 2/2 acute diastolic CHF decompensation due to non-compliance with prescribed Lasix. - Pt reports taking previous home dose of 20 mg Lasix instead of 40mg - Respiratory status improved with BIPAP and fluid removal on HD - HD x3: Jan 16, , 2018 - Pitting edema 2+ today - Urine output improved to 700 cc over 24 - CXR - worsening congestive changes - Elevated BNP - Cont lasix - Improved with BiPAP, now comfortable on NC - Telemonitoring, I/Os, daily weights. - Cardiology consulted: Metoprolol 50 mg BID and Cardizem CD 120 mg QD with IV Cardizem or Lopressor as needed for rate-control, continue Lipitor 20 mg QHS and Eliquis 2.5 mg BID. Resume Diovan as renal function stabilizes # Acute toxic metabolic encephalopathy - RIGHT IJ catheter in place - Most likely 2/2 uremia - ABG pCO2 49.1 on 01/20/19 - BUN improving - Less confused, still not at baseline mental status - Insomnia: melatonin - US Kidneys: Atrophy, no obstruction - Nephrology consulted # Atrial fibrillation with RVR - Continue Diltiazem, Metoprolol - Eliquis 2.5 mg BID, resumed # PAULA on CKD 4 - Shiley to be removed today - Most likely 2/2 cardiorenal syndrome - Oliguric but pt making urine ~ 300 cc - Cr improving - Nephrology consulted: Plan for HD today - US Bladder/Kidneys pending: renal atrophy, no obstruction - Continue IV lasix diuresis. I/Os. # Abdominal tenderness - Non-specific epigastric pain/tenderness partially relieved by PPI - AST 113 - Abd CT pending - Abdominal US: Contracted GB with thickened GB wall, withOUT cholelithiasis - Afebrile - Leukocytosis increasing - Monitor for possible cholecystitis - Surgery consulted: GI evaluation for completeness; clinical course is not c/w acute appendicitis or the other CT findings # HTN - Continue Diltiazem, Metoprolol. - Valsartan held. # HLD - Cont atorvastatin # DM - ISS Novolog # Chronic Respiratory Failure 2/2 COPD/Pulmonary HTN - Refusing bipap - 97% on 3L NC - Current presentation appears not to be in COPD exacerbation - Cont. bronchodilator nebs, Spiriva. - Received IV Solumedrol in ED, will hold further steroid for now. # F/E/N - No standing fluids - Cont. to monitor electrolytes - Low sodium/diabetic diet # DVT prophylaxis - Eliquis # Disposition - Telemetry - Family and patient refusing EDUARD but willing for PT eval to determine ability to go home once medically optimized Jorge Marshall MD Visit type - Emergency Visit Emergency Visit: No - New Patient This patient is new to me today: No - Critical Care Critical Care patient: No - Discharge Referral Referred to [facility] No ATTENDING PHYSICIAN STATEMENT I saw and evaluated the patient. I reviewed the resident's note and discussed the case with the resident. I agree with the resident's findings and plan as documented. SUBJECTIVE: OBJECTIVE: ASSESSMENT AND PLAN:
[2019-01-23 14:40] LABS: INR 1.82 (0.83-1.09); PROTHROMBIN TIME (PATIENT) 21.6 SEC (9.7-13.0)
[2019-01-23 14:43] LABS: ACTIVATED PTT 32.4 SECONDS (25.2-36.5)
[2019-01-23] MEDS: FUROSEMIDE 40 MG/4 ML INJECTABLE VIAL IVPUSH SCH (15:41)
--- NOTE | 2019-01-23 15:42 | PROC ---
Procedure Note Procedure: INR, PTT INR 1.82 (0.83-1.09) H 01/23/19 14:10 Shiley cath removed form right IJ with distal tip intact. Direct pressure held for 5 minutes --> + hemostasis. 2x2 folded into fourths and covered with tegaderm. Patient tolerated well.
[2019-01-23 18:07] LABS: ATYPICAL pANCA <1:20 titer (Neg:<1:20); C-ANCA <1:20 titer (Neg:<1:20)
[2019-01-23] MEDS: ALBUTEROL SO4 0.083% IH SOL 2.5 MG/3 ML VIAL.NEB. NEB PRN (21:32)
[2019-01-23] MEDS: ATORVASTATIN CA 20 MG TABLET (FP) PO SCH (21:45)
--- NOTE | 2019-01-24 08:16 | PN ---
Progress Note, Physician Chief Complaint: Elderly man multiple Co-morbidities remained art base line History of Present Illness: 88 year old female with history of CRF on COPD (on home oxygen, 3L), chronic diastolic heart failure, Atrial fibrillation (on Eliquis, s/p PPM), coronary artery disease, hypertension, Chronic LBBB, hyperlipidemia, CKD 4, Hx CVA, presents with shortness of breath worse on exertion, with associated cough. No sputum/hemoptysis. - Current Medication List Current Medications: Active Medications Acetaminophen (Tylenol -) 650 mg PO Q6H PRN PRN Reason: PAIN LEVEL 1-5 Last Admin: 01/15/19 21:21 Dose: 650 mg Albuterol Sulfate (Ventolin 0.083% Nebulizer Soln -) 1 amp NEB Q4H PRN PRN Reason: SHORT OF BREATH/WHEEZING Last Admin: 01/23/19 21:32 Dose: 1 amp Apixaban (Eliquis -) 2.5 mg PO BID [facility] Last Admin: 01/23/19 21:45 Dose: 2.5 mg Atorvastatin Calcium (Lipitor -) 20 mg PO HS [facility] Last Admin: 01/23/19 21:45 Dose: 20 mg Budesonide/Formoterol Fumarate (Symbicort 80/4.5mcg -) 2 puff IH BID [facility] Last Admin: 01/23/19 21:46 Dose: 2 puff Diltiazem HCl (Cardizem Cd -) 120 mg PO DAILY [facility] Last Admin: 01/23/19 11:11 Dose: 120 mg Furosemide (Lasix Injection -) 40 mg IVPUSH DAILY [facility] Last Admin: 01/23/19 15:41 Dose: 40 mg Metoprolol Succinate (Toprol Xl -) 50 mg PO BID [facility] Last Admin: 01/23/19 21:45 Dose: 50 mg Pantoprazole Sodium (Protonix -) 40 mg PO DAILY [facility] Last Admin: 01/23/19 11:11 Dose: 40 mg Tiotropium [place] (Spiriva Respimat) 2 puff IH DAILY [facility] Last Admin: 01/23/19 11:11 Dose: 2 puff - Objective Vital Signs: Vital Signs Temperature 98.4 F 01/24/19 06:00 Pulse Rate 82 01/24/19 06:00 Respiratory Rate 20 01/24/19 06:00 Blood Pressure 104/82 01/24/19 06:00 O2 Sat by Pulse Oximetry (%) 96 01/24/19 00:34 Constitutional: Yes: No Distress, Calm Eyes: Yes: Conjunctiva Clear, EOM Intact HENT: Yes: Atraumatic Neck: Yes: Trachea Midline Cardiovascular: Yes: Regular Rate and Rhythm, Pulse Irregular, S1, S2 Respiratory: Yes: Regular, On Nasal O2 Gastrointestinal: Yes: Normal Bowel Sounds, Soft Edema: RUE: 1+, LLE: 1+ Peripheral Pulses: Left Doralis Pedis: 1+, Right Dorsalis Pedis: 1+ Neurological: Yes: Alert, Oriented, Cran Nerves II-XII Intact Labs: CBC, BMP 01/21/19 06:23 01/23/19 05:42 INR, PTT INR 1.82 (0.83-1.09) H 01/23/19 14:10 Problem List - Problems (1) Hyperlipidemia Code(s): E78.5 - HYPERLIPIDEMIA, UNSPECIFIED Qualifiers: Hyperlipidemia type: pure hypercholesterolemia Qualified Code(s): E78.00 - Pure hypercholesterolemia, unspecified; E78.0 - Pure hypercholesterolemia (2) Acute on chronic respiratory failure with hypoxia and hypercapnia Assessment/Plan: 1. Acute on chronic Hypoxic/Hypercapneic Respiratory Failure secondary to acute diastolic CHF decompensation due to non-compliance with prescribed Lasix. currently 97% on 3L NC. no response to lasix and started on HD. x4 sessions at this point. had HD session yesterday and tolerated well. plan to re-start lasix IV and will see if responds over the weekend. if she does not will need permacath placement and outpatient HD arranged. Respiratory status improved with BIPAP and fluid removal on HD. Cardiology/ Nephrology following. Code(s): J96.21 - ACUTE AND CHRONIC RESPIRATORY FAILURE WITH HYPOXIA; J96.22 - ACUTE AND CHRONIC RESPIRATORY FAILURE WITH HYPERCAPNIA (3) Eqluv-vh-kxodvhi kidney injury Assessment/Plan: Renal functions are stable Code(s): N17.9 - ACUTE KIDNEY FAILURE, UNSPECIFIED; N18.9 - CHRONIC KIDNEY DISEASE, UNSPECIFIED Qualifiers: Chronic kidney disease stage: stage 4 (severe) (4) COPD exacerbation Assessment/Plan: CRF sec to COPD/Pulmonary HTN - on Home O2. Appears not to be in COPD exacerbation. Continue Bronchodilator Nebs, Spiriva. F/U pulmonary recommondations Code(s): J44.1 - CHRONIC OBSTRUCTIVE PULMONARY DISEASE W (ACUTE) EXACERBATION (5) Atrial fibrillation with rapid ventricular response Assessment/Plan: Atrial fibrillation with RVR on admission - Continue Diltiazem, Metoprolol. Eliquis 2.5mg BID Code(s): I48.91 - UNSPECIFIED ATRIAL FIBRILLATION (6) HTN (hypertension) Assessment/Plan: cont home meds Code(s): I10 - ESSENTIAL (PRIMARY) HYPERTENSION
[2019-01-24] MEDS: metoPROLOL SUCCINATE 25 MG TAB.SR.24H (FP) PO SCH ×2 (10:17→22:06)
[2019-01-24] MEDS: FUROSEMIDE 40 MG/4 ML INJECTABLE VIAL IVPUSH SCH (10:17)
[2019-01-24] MEDS: APIXABAN 2.5 MG TABLET PO SCH ×2 (10:17→22:05)
[2019-01-24] MEDS: PANTOPRAZOLE 40 MG TABLET (FP) PO SCH (10:17)
[2019-01-24] MEDS: BUDESONIDE/FORMETEROL FUMARATE 80/4.5 mcg INHALER IH SCH ×2 (10:18→22:09)
[2019-01-24] MEDS: TIOTROPIUM BROMIDE 2.5 MCG (SPIRIVA) RESPIMAT INHALER IH SCH (10:18)
--- NOTE | 2019-01-24 13:08 | PN ---
Progress Note, Physician Chief Complaint: Pt A&O; no chest pain, dyspnea, or palitations. Her legs are "always swollen", though less so when wakes up in the morning.Her daughter is with her today. History of Present Illness: 88y/o F h/o COPD and diastolic CHF, Afib with recent admission for SOB predominantly COPD exacerbation completed prednisone course now p/w several days progressive sob/orthopnea/FRYE and chest pain with leg swelling. Seen by covering physician for Dr. Johnson and lasix increased from 40mg daily to 40+ 20mg daily with increased urine output but progressive SOB/leg swelling. presents now for persistent SOB. - Current Medication List Current Medications: Active Medications Acetaminophen (Tylenol -) 650 mg PO Q6H PRN PRN Reason: PAIN LEVEL 1-5 Last Admin: 01/15/19 21:21 Dose: 650 mg Albuterol Sulfate (Ventolin 0.083% Nebulizer Soln -) 1 amp NEB Q4H PRN PRN Reason: SHORT OF BREATH/WHEEZING Last Admin: 01/23/19 21:32 Dose: 1 amp Apixaban (Eliquis -) 2.5 mg PO BID [facility] Last Admin: 01/24/19 10:17 Dose: 2.5 mg Atorvastatin Calcium (Lipitor -) 20 mg PO HS [facility] Last Admin: 01/23/19 21:45 Dose: 20 mg Budesonide/Formoterol Fumarate (Symbicort 80/4.5mcg -) 2 puff IH BID [facility] Last Admin: 01/24/19 10:18 Dose: 2 puff Diltiazem HCl (Cardizem Cd -) 120 mg PO DAILY [facility] Last Admin: 01/24/19 10:17 Dose: 120 mg Furosemide (Lasix Injection -) 40 mg IVPUSH DAILY [facility] Last Admin: 01/24/19 10:17 Dose: 40 mg Metoprolol Succinate (Toprol Xl -) 50 mg PO BID [facility] Last Admin: 01/24/19 10:17 Dose: 50 mg Pantoprazole Sodium (Protonix -) 40 mg PO DAILY [facility] Last Admin: 01/24/19 10:17 Dose: 40 mg Tiotropium [place] (Spiriva Respimat) 2 puff IH DAILY [facility] Last Admin: 01/24/19 10:18 Dose: 2 puff - Objective Vital Signs: Vital Signs Temperature 98.4 F 01/24/19 06:00 Pulse Rate 82 01/24/19 06:00 Respiratory Rate 20 01/24/19 09:00 Blood Pressure 104/82 01/24/19 06:00 O2 Sat by Pulse Oximetry (%) 99 01/24/19 09:00 Constitutional: Yes: Calm Eyes: Yes: WNL HENT: Yes: WNL Neck: Yes: WNL Cardiovascular: Yes: Pulse Irregular, S1 (varies in intensity), S2 Respiratory: Yes: Diminished Gastrointestinal: Yes: Soft, Abdomen, Obese ...Rectal Exam: Yes: Deferred Genitourinary: No: Anuria Breast(s): Yes: WNL Musculoskeletal: Yes: Muscle Weakness Extremities: Yes: Cool Edema: Yes Edema: LLE: 1+, RLE: 1+ Peripheral Pulses WNL: Yes Integumentary: Yes: WNL Neurological: Yes: WNL Psychiatric: Yes: WNL Labs: CBC, BMP 01/21/19 06:23 01/23/19 05:42 INR, PTT INR 1.82 (0.83-1.09) H 01/23/19 14:10 Abnormal Lab Results 01/23/19 14:10 PT with INR 21.60 H INR 1.82 H Problem List - Problems (1) Czhzy-bl-tewhytw kidney injury Assessment/Plan: f/u with regional transfer liaison regarding ongoing hemodialysis. May require permacath. Code(s): N17.9 - ACUTE KIDNEY FAILURE, UNSPECIFIED; N18.9 - CHRONIC KIDNEY DISEASE, UNSPECIFIED Qualifiers: Chronic kidney disease stage: stage 4 (severe) (2) COPD exacerbation Code(s): J44.1 - CHRONIC OBSTRUCTIVE PULMONARY DISEASE W (ACUTE) EXACERBATION (3) HTN (hypertension) Code(s): I10 - ESSENTIAL (PRIMARY) HYPERTENSION (4) Paroxysmal atrial fibrillation Assessment/Plan: On metoprolol and diltiazem. On apixaban for anticoagulation. Code(s): I48.0 - PAROXYSMAL ATRIAL FIBRILLATION (5) Acute on chronic diastolic CHF (congestive heart failure) Code(s): I50.33 - ACUTE ON CHRONIC DIASTOLIC (CONGESTIVE) HEART FAILURE
--- NOTE | 2019-01-24 14:08 | PN ---
Progress Note, Physician History of Present Illness: Pt seen and examined at bedside. She feels that her breathing is comfortable. - Current Medication List Current Medications: Active Medications Acetaminophen (Tylenol -) 650 mg PO Q6H PRN PRN Reason: PAIN LEVEL 1-5 Last Admin: 01/15/19 21:21 Dose: 650 mg Albuterol Sulfate (Ventolin 0.083% Nebulizer Soln -) 1 amp NEB Q4H PRN PRN Reason: SHORT OF BREATH/WHEEZING Last Admin: 01/23/19 21:32 Dose: 1 amp Apixaban (Eliquis -) 2.5 mg PO BID [facility] Last Admin: 01/24/19 10:17 Dose: 2.5 mg Atorvastatin Calcium (Lipitor -) 20 mg PO HS [facility] Last Admin: 01/23/19 21:45 Dose: 20 mg Budesonide/Formoterol Fumarate (Symbicort 80/4.5mcg -) 2 puff IH BID [facility] Last Admin: 01/24/19 10:18 Dose: 2 puff Diltiazem HCl (Cardizem Cd -) 120 mg PO DAILY [facility] Last Admin: 01/24/19 10:17 Dose: 120 mg Furosemide (Lasix Injection -) 40 mg IVPUSH DAILY [facility] Last Admin: 01/24/19 10:17 Dose: 40 mg Metoprolol Succinate (Toprol Xl -) 50 mg PO BID [facility] Last Admin: 01/24/19 10:17 Dose: 50 mg Pantoprazole Sodium (Protonix -) 40 mg PO DAILY [facility] Last Admin: 01/24/19 10:17 Dose: 40 mg Tiotropium [place] (Spiriva Respimat) 2 puff IH DAILY [facility] Last Admin: 01/24/19 10:18 Dose: 2 puff - Objective Vital Signs: Vital Signs Temperature 98.4 F 01/24/19 06:00 Pulse Rate 82 01/24/19 06:00 Respiratory Rate 20 01/24/19 09:00 Blood Pressure 104/82 01/24/19 06:00 O2 Sat by Pulse Oximetry (%) 99 01/24/19 09:00 Constitutional: Yes: Calm Eyes: Yes: Conjunctiva Clear HENT: Yes: Atraumatic Neck: Yes: Supple Cardiovascular: Yes: S1, S2 Respiratory: Yes: CTA Bilaterally Gastrointestinal: Yes: Soft Genitourinary: Yes: WNL Musculoskeletal: Yes: WNL Edema: Yes Edema: LLE: 2+, RLE: 2+ Neurological: Yes: Oriented Psychiatric: Yes: Oriented Labs: CBC, BMP 01/21/19 06:23 01/23/19 05:42 INR, PTT INR 1.82 (0.83-1.09) H 01/23/19 14:10 Problem List - Problems (1) Vlgho-ie-qpgkisd kidney injury Code(s): N17.9 - ACUTE KIDNEY FAILURE, UNSPECIFIED; N18.9 - CHRONIC KIDNEY DISEASE, UNSPECIFIED Qualifiers: Chronic kidney disease stage: stage 4 (severe) (2) CHF exacerbation Code(s): I50.9 - HEART FAILURE, UNSPECIFIED Qualifiers: Heart failure type: unspecified Qualified Code(s): I50.9 - Heart failure, unspecified (3) COPD exacerbation Code(s): J44.1 - CHRONIC OBSTRUCTIVE PULMONARY DISEASE W (ACUTE) EXACERBATION Assessment/Plan Current Medications Generic Name Dose Route Start Last Admin Trade Name Freq PRN Reason Stop Dose Admin Acetaminophen 650 mg 01/14/19 16:03 01/15/19 21:21 Tylenol - PO 650 mg Q6H PRN Administration PAIN LEVEL 1-5 Albuterol Sulfate 1 amp 01/14/19 17:48 01/23/19 21:32 Ventolin 0.083% Nebulizer Soln - NEB 1 amp Q4H PRN Administration SHORT OF BREATH/WHEEZING Apixaban 2.5 mg 01/17/19 22:00 01/24/19 10:17 Eliquis - PO 2.5 mg BID [facility] Administration Atorvastatin Calcium 20 mg 01/13/19 22:00 01/23/19 21:45 Lipitor - PO 20 mg HS [facility] Administration Budesonide/Formoterol Fumarate 2 puff 01/15/19 10:00 01/24/19 10:18 Symbicort 80/4.5mcg - IH 2 puff BID [facility] Administration Diltiazem HCl 120 mg 01/14/19 10:00 01/24/19 10:17 Cardizem Cd - PO 120 mg DAILY [facility] Administration Furosemide 40 mg 01/23/19 12:30 01/24/19 10:17 Lasix Injection - IVPUSH 40 mg DAILY [facility] Administration Metoprolol Succinate 50 mg 01/13/19 22:00 01/24/19 10:17 Toprol Xl - PO 50 mg BID [facility] Administration Pantoprazole Sodium 40 mg 01/14/19 10:00 01/24/19 10:17 Protonix - PO 40 mg DAILY [facility] Administration Tiotropium [place] 2 puff 01/14/19 10:00 01/24/19 10:18 Spiriva Respimat IH 2 puff DAILY [facility] Administration Laboratory Tests 01/16/19 01/16/19 01/21/19 10:40 10:40 06:23 OZZIE M-Osbaldo Not observed c-ANCA <1:20 Proteinase 3 (PR3) <3.5 p-ANCA <1:20 Atypical p-ANCA <1:20 Myeloperoxidase Ab <9.0 Double Strand DNA Ab <1 Impression 1. CKD 2. PAULA 3. COPD 4. asthma 5. dyspnea 6. HTN 7. a-fib 8. CHF 9. CAD Plan - cont lasix, will give BID - monitor renal function - monitor urine output - if renal function does not stabilize will place permacath next week - serologies neg so far - renal diet for now
[2019-01-24] MEDS ORDERED: INSULIN (LEVEMIR) 100 UNITS/ML UNITS SQ ONE (18:23)
[2019-01-24] MEDS ORDERED: INSULIN (NOVOLOG) ASPART 100 UNITS/ML 10ML VIAL ONE (18:23)
[2019-01-24] MEDS: ATORVASTATIN CA 20 MG TABLET (FP) PO SCH (22:05)
[2019-01-25 06:53] LABS: BASO % 0.6 % (0-2.0); EOS % 1.2 % (0-4.5); HEMATOCRIT 34.1 % (32.4-45.2); HEMOGLOBIN 10.5 GM/dL (10.7-15.3); LYMPH % 8.1 % (8-40); MCH 26.5 pg (25.7-33.7); MCHC 30.8 g/dl (32.0-36.0); MEAN CELL VOLUME 85.8 fl (80-96); NEUT % 78.1 % (42.8-82.8); PLATELET COUNT 191 K/MM3 (134-434); RBC 3.97 M/mm3 (3.60-5.2); RDW 16.9 % (11.6-15.6)
[2019-01-25 07:14] LABS: INR 1.69 (0.83-1.09); PROTHROMBIN TIME (PATIENT) 20.1 SEC (9.7-13.0)
[2019-01-25 07:22] LABS: ALBUMIN 3.2 g/dl (3.4-5.0); BILIRUBIN,TOTAL 0.8 mg/dL (0.2-1); BLOOD UREA NITROGEN 54.5 mg/dL (7-18); CALCIUM 8.9 mg/dL (8.5-10.1); CREATININE 3.1 mg/dL (0.55-1.3); POTASSIUM 3.7 mmol/L (3.5-5.1); TOT PROT 6.3 g/dl (6.4-8.2)
--- NOTE | 2019-01-25 08:38 | PN ---
Teaching Attending Note Name of Resident: Samantha Dash ATTENDING PHYSICIAN STATEMENT I saw and evaluated the patient. I reviewed the resident's note and discussed the case with the resident. I agree with the resident's findings and plan as documented. SUBJECTIVE: Feels comfortable no c/o SOB or chest pian OBJECTIVE: Vital Signs Temperature 97.7 F 01/25/19 06:00 Pulse Rate 69 01/25/19 06:00 Respiratory Rate 20 01/25/19 06:00 Blood Pressure 118/70 01/25/19 06:00 O2 Sat by Pulse Oximetry (%) 98 01/25/19 00:58 Elderly F not distress HEENT: MM moist no anemia NECK: No JVd No Bruit CHEST: Basal crepts Cardiovascular: Regular Rate and Rhythm, Pulse Irregular, S1, S2 Gastrointestinal: Normal Bowel Sounds, Soft LE : Edema: B/L +1 1+ Neurological: Alert, Oriented, Cran Nerves II-XII Intact CBC, BMP 01/25/19 05:42 01/25/19 05:42 Active Medications Acetaminophen (Tylenol -) 650 mg PO Q6H PRN PRN Reason: PAIN LEVEL 1-5 Last Admin: 01/15/19 21:21 Dose: 650 mg Apixaban (Eliquis -) 2.5 mg PO BID [facility] Last Admin: 01/24/19 22:05 Dose: 2.5 mg Atorvastatin Calcium (Lipitor -) 20 mg PO HS [facility] Last Admin: 01/24/19 22:05 Dose: 20 mg Budesonide/Formoterol Fumarate (Symbicort 80/4.5mcg -) 2 puff IH BID [facility] Last Admin: 01/24/19 22:09 Dose: 2 puff Diltiazem HCl (Cardizem Cd -) 120 mg PO DAILY [facility] Last Admin: 01/24/19 10:17 Dose: 120 mg Furosemide (Lasix Injection -) 40 mg IVPUSH BID@0600,1400 [facility] Metoprolol Succinate (Toprol Xl -) 50 mg PO BID [facility] Last Admin: 01/24/19 22:06 Dose: 50 mg Pantoprazole Sodium (Protonix -) 40 mg PO DAILY [facility] Last Admin: 01/24/19 10:17 Dose: 40 mg Tiotropium [place] (Spiriva Respimat) 2 puff IH DAILY [facility] Last Admin: 01/24/19 10:18 Dose: 2 puff ASSESSMENT AND PLAN:88 year old female with history of CRF on COPD (on home oxygen, 3L), chronic diastolic heart failure, Atrial fibrillation (on Eliquis, s /p PPM), coronary artery disease, hypertension, Chronic LBBB, hyperlipidemia, CKD 4, Hx CVA, presents with shortness of breath worse on exertion, with associated cough. No sputum/hemoptysis. Problem List - Problems (1) Hyperlipidemia Code(s): E78.5 - HYPERLIPIDEMIA, UNSPECIFIED Qualifiers: Hyperlipidemia type: pure hypercholesterolemia Qualified Code(s): E78.00 - Pure hypercholesterolemia, unspecified; E78.0 - Pure hypercholesterolemia (2) Acute on chronic respiratory failure with hypoxia and hypercapnia Assessment/Plan: 1. Acute on chronic Hypoxic/Hypercapneic Respiratory Failure secondary to acute diastolic CHF decompensation due to non-compliance with prescribed Lasix. currently 97% on 3L NC. no response to lasix and started on HD. x4 sessions at this point. had HD session yesterday and tolerated well. plan to re-start lasix IV and will see if responds over the weekend. if she does not will need permacath placement and outpatient HD arranged. Respiratory status improved with BIPAP and fluid removal on HD. Cardiology/ Nephrology following. Code(s): J96.21 - ACUTE AND CHRONIC RESPIRATORY FAILURE WITH HYPOXIA; J96.22 - ACUTE AND CHRONIC RESPIRATORY FAILURE WITH HYPERCAPNIA (3) Ncyor-ow-ghjoegu kidney injury Assessment/Plan: Renal functions are stable , shilley was removed on Saturday re evaluation by Nephrology and Vascular for possible access Port for HD. Code(s): N17.9 - ACUTE KIDNEY FAILURE, UNSPECIFIED; N18.9 - CHRONIC KIDNEY DISEASE, UNSPECIFIED Qualifiers: Chronic kidney disease stage: stage 4 (severe) (4) COPD exacerbation Assessment/Plan: CRF sec to COPD/Pulmonary HTN - on Home O2. Appears not to be in COPD exacerbation. Continue Bronchodilator Nebs, Spiriva. F/U pulmonary recommondations Code(s): J44.1 - CHRONIC OBSTRUCTIVE PULMONARY DISEASE W (ACUTE) EXACERBATION (5) Atrial fibrillation with rapid ventricular response Assessment/Plan: Atrial fibrillation with RVR on admission - Continue Diltiazem, Metoprolol. Eliquis 2.5mg BID Code(s): I48.91 - UNSPECIFIED ATRIAL FIBRILLATION (6) HTN (hypertension) Assessment/Plan: cont home meds Code(s): I10 - ESSENTIAL (PRIMARY) HYPERTENSION
[2019-01-25] MEDS: PANTOPRAZOLE 40 MG TABLET (FP) PO SCH (10:14)
[2019-01-25] MEDS: metoPROLOL SUCCINATE 25 MG TAB.SR.24H (FP) PO SCH ×2 (10:14→22:42)
[2019-01-25] MEDS: APIXABAN 2.5 MG TABLET PO SCH ×2 (10:14→22:43)
[2019-01-25] MEDS: TIOTROPIUM BROMIDE 2.5 MCG (SPIRIVA) RESPIMAT INHALER IH SCH (10:15)
[2019-01-25] MEDS: BUDESONIDE/FORMETEROL FUMARATE 80/4.5 mcg INHALER IH SCH ×2 (10:15→22:43)
[2019-01-25] MEDS: FUROSEMIDE 40 MG/4 ML INJECTABLE VIAL IVPUSH SCH ×2 (10:16→16:56)
--- NOTE | 2019-01-25 11:20 | PN ---
Physical Exam: SUBJECTIVE: Patient seen and examined. She is currently denying chest pain and shortness of breath. OBJECTIVE: Vital Signs Period Temp Pulse Resp BP Sys/Perez Pulse Ox Last 24 Hr 97.7 F-98.2 F 69-99 20-20 116-130/68-103 98-98 GENERAL: The patient is awake, alert, and fully oriented, in no acute distress. HEAD: Normal with no signs of trauma. EYES: PERRL, extraocular movements intact, sclera anicteric, conjunctiva clear. No ptosis. Eyeglasses worn. ENT: Ears normal, nares patent, moist mucous membranes. 3L NC. NECK: Trachea midline, full range of motion, supple. LUNGS: Breath sounds equal, clear to auscultation bilaterally, no wheezes, no crackles, no accessory muscle use. HEART: Regular rate and irregular rhythm, S1, S2 without murmur, rub or gallop. ABDOMEN: Soft, nontender, nondistended, normoactive bowel sounds EXTREMITIES: 2+ pulses, warm, well-perfused, bilateral LE +2 pitting edema. NEUROLOGICAL: Cranial nerves II through XII grossly intact. Normal speech, gait not observed. PSYCH: Normal mood, normal affect. SKIN: Warm, dry, normal turgor, no rashes or lesions noted contreras 500cc output yesterday 1kg weight increase since yesterday Laboratory Results - last 24 hr 01/24/19 01/24/19 01/24/19 12:28 16:51 22:07 WBC RBC Hgb Hct MCV MCH MCHC RDW Plt Count MPV Absolute Neuts (auto) Neutrophils % Lymphocytes % Monocytes % Eosinophils % Basophils % Nucleated RBC % PT with INR INR Sodium Potassium Chloride Carbon Dioxide Anion Gap BUN Creatinine Est GFR (CKD-EPI)AfAm Est GFR (CKD-EPI)NonAf POC Glucometer 148 212 176 Random Glucose Calcium Total Bilirubin AST ALT Alkaline Phosphatase Total Protein Albumin 01/25/19 01/25/19 01/25/19 05:42 05:42 05:42 WBC 11.0 H RBC 3.97 Hgb 10.5 L Hct 34.1 MCV 85.8 MCH 26.5 MCHC 30.8 L RDW 16.9 H Plt Count 191 MPV 8.0 Absolute Neuts (auto) 8.6 H Neutrophils % 78.1 Lymphocytes % 8.1 D Monocytes % 12.0 H Eosinophils % 1.2 Basophils % 0.6 Nucleated RBC % 0 PT with INR 20.10 H INR 1.69 H Sodium 138 Potassium 3.7 Chloride 99 Carbon Dioxide 30 Anion Gap 8 BUN 54.5 H Creatinine 3.1 H Est GFR (CKD-EPI)AfAm 15.04 Est GFR (CKD-EPI)NonAf 12.98 POC Glucometer Random Glucose 94 Calcium 8.9 Total Bilirubin 0.8 AST 26 ALT 22 Alkaline Phosphatase 172 H Total Protein 6.3 L Albumin 3.2 L 01/25/19 06:26 WBC RBC Hgb Hct MCV MCH MCHC RDW Plt Count MPV Absolute Neuts (auto) Neutrophils % Lymphocytes % Monocytes % Eosinophils % Basophils % Nucleated RBC % PT with INR INR Sodium Potassium Chloride Carbon Dioxide Anion Gap BUN Creatinine Est GFR (CKD-EPI)AfAm Est GFR (CKD-EPI)NonAf POC Glucometer 109 Random Glucose Calcium Total Bilirubin AST ALT Alkaline Phosphatase Total Protein Albumin Active Medications Generic Name Dose Route Start Last Admin Trade Name Freq PRN Reason Stop Dose Admin Acetaminophen 650 mg 01/14/19 16:03 01/15/19 21:21 Tylenol - PO 650 mg Q6H PRN Administration PAIN LEVEL 1-5 Apixaban 2.5 mg 01/17/19 22:00 01/25/19 10:14 Eliquis - PO 2.5 mg BID KESHAWN Administration Atorvastatin Calcium 20 mg 01/13/19 22:00 01/24/19 22:05 Lipitor - PO 20 mg HS KESHAWN Administration Budesonide/Formoterol Fumarate 2 puff 01/15/19 10:00 01/25/19 10:15 Symbicort 80/4.5mcg - IH 2 puff BID KESHAWN Administration Diltiazem HCl 120 mg 01/14/19 10:00 01/25/19 10:15 Cardizem Cd - PO 120 mg DAILY KESHAWN Administration Furosemide 40 mg 01/25/19 14:08 01/25/19 10:16 Lasix Injection - IVPUSH 40 mg BID@0600,1400 KESHAWN Administration Metoprolol Succinate 50 mg 01/13/19 22:00 01/25/19 10:14 Toprol Xl - PO 50 mg BID KESHAWN Administration Pantoprazole Sodium 40 mg 01/14/19 10:00 01/25/19 10:14 Protonix - PO 40 mg DAILY KESHAWN Administration Tiotropium [place] 2 puff 01/14/19 10:00 01/25/19 10:15 Spiriva Respimat IH 2 puff DAILY EKSHAWN Administration ASSESSMENT/PLAN: Ms. Owen is an 88 y/o female with history of CRF on COPD (on home oxygen, 3L, currently using bipap), chronic diastolic heart failure, Atrial fibrillation (on Eliquis, s/p PPM), coronary artery disease, hypertension, chronic LBBB, hyperlipidemia, CKD 4, and CVA, who presents with FRYE, with associated cough. Pt received HD 2/2 rapid BUN increase and worsening kidney function. #acute hypoxic/hypercapneic respiratory failure 2/2 acute diastolic CHF decompensation from non-compliance with prescribed Lasix. Pt reports taking previous home dose of 20 mg Lasix instead of 40mg. Respiratory status improved with BIPAP and fluid removal on HD. Continued urine output. -improved with BiPAP, now comfortable on NC 3L -IV Lasix 40mg BID -continue daily weights, I/Os -cardiology consulted: Metoprolol 50 mg BID and Cardizem CD 120 mg QD with IV Cardizem or Lopressor as needed for rate-control, continue Lipitor 20 mg QHS and Eliquis 2.5 mg BID. Resume Diovan as renal function stabilizes #acute toxic metabolic encephalopathy 2/2 uremia Near baseline mental status. ABG pCO2 49.1 on 01/20/19. BUN 54.5 (>150 on 01/16/19 ). -prepared for permacath placement tomorrow if necessary -for insomnia use melatonin, pt becomes more confused and agitated with haldol #atrial fibrillation with RVR -continue diltiazem, metoprolol -Eliquis 2.5 mg BID, resumed #PAULA on CKD 4 Most likely 2/2 cardiorenal syndrome. Has been making urine. BUN 54.5 (>150 on ). U/S renal atrophy, no obstruction -continue IV lasix diuresis -fluid restriction 1L/daily -nephrology #abdominal tenderness, improved Non-specific epigastric pain/tenderness partially relieved by PPI. CT abdomen pericholecystic fluid, duodenal inflammation and thickening, RLQ inflammation. Abdominal U/S: Contracted GB with thickened GB wall, without cholelithiasis. Afebrile. Mild leukocytosis 11.0. -surgery consulted: consider GI consult, clinical course is not c/w acute appendicitis or the other CT findings #HTN -continue Diltiazem, Metoprolol. -valsartan held #HLD -continue atorvastatin #DM -BGM -SSI #chronic respiratory failure 2/2 COPD/pulmonary HTN -97% on 3L NC -current presentation appears not to be in COPD exacerbation -continue Spiriva, nebulizers -received IV Solumedrol in ED, will hold further steroid for now. FEN low sodium/diabetic diet DVT Ppx Eliquis Visit type - Emergency Visit Emergency Visit: Yes ED Registration Date: 01/13/19 Care time: The patient presented to the Emergency Department on the above date and was hospitalized for further evaluation of their emergent condition. - New Patient This patient is new to me today: Yes Date on this admission: 01/25/19 - Critical Care Critical Care patient: No - Discharge Referral Referred to [facility] No ATTENDING PHYSICIAN STATEMENT I saw and evaluated the patient. I reviewed the resident's note and discussed the case with the resident. I agree with the resident's findings and plan as documented. SUBJECTIVE: OBJECTIVE: ASSESSMENT AND PLAN:
--- NOTE | 2019-01-25 15:57 | PN ---
Progress Note, Physician History of Present Illness: Pt seen and examined at bedside. She is awake and alert. She feels that her breathing is comfortable. - Current Medication List Current Medications: Active Medications Acetaminophen (Tylenol -) 650 mg PO Q6H PRN PRN Reason: PAIN LEVEL 1-5 Last Admin: 01/15/19 21:21 Dose: 650 mg Apixaban (Eliquis -) 2.5 mg PO BID [facility] Last Admin: 01/25/19 10:14 Dose: 2.5 mg Atorvastatin Calcium (Lipitor -) 20 mg PO HS [facility] Last Admin: 01/24/19 22:05 Dose: 20 mg Budesonide/Formoterol Fumarate (Symbicort 80/4.5mcg -) 2 puff IH BID [facility] Last Admin: 01/25/19 10:15 Dose: 2 puff Diltiazem HCl (Cardizem Cd -) 120 mg PO DAILY [facility] Last Admin: 01/25/19 10:15 Dose: 120 mg Furosemide (Lasix Injection -) 40 mg IVPUSH BID@0600,1400 [facility] Last Admin: 01/25/19 10:16 Dose: 40 mg Metoprolol Succinate (Toprol Xl -) 50 mg PO BID [facility] Last Admin: 01/25/19 10:14 Dose: 50 mg Pantoprazole Sodium (Protonix -) 40 mg PO DAILY [facility] Last Admin: 01/25/19 10:14 Dose: 40 mg Tiotropium [place] (Spiriva Respimat) 2 puff IH DAILY [facility] Last Admin: 01/25/19 10:15 Dose: 2 puff - Objective Vital Signs: Vital Signs Temperature 98.5 F 01/25/19 10:00 Pulse Rate 92 H 01/25/19 10:00 Respiratory Rate 20 01/25/19 10:00 Blood Pressure 112/62 01/25/19 10:00 O2 Sat by Pulse Oximetry (%) 98 01/25/19 09:00 Constitutional: Yes: Calm Eyes: Yes: Conjunctiva Clear HENT: Yes: Atraumatic Cardiovascular: Yes: S1, S2 Respiratory: Yes: CTA Bilaterally, On Nasal O2 Gastrointestinal: Yes: Soft, Abdomen, Obese Genitourinary: Yes: WNL Musculoskeletal: Yes: WNL Extremities: Yes: WNL Edema: Yes Edema: LLE: 2+, RLE: 2+ Neurological: Yes: Oriented Psychiatric: Yes: Oriented Labs: CBC, BMP 01/25/19 05:42 01/25/19 05:42 INR, PTT INR 1.69 (0.83-1.09) H 01/25/19 05:42 Problem List - Problems (1) [id number] kidney injury Code(s): N17.9 - ACUTE KIDNEY FAILURE, UNSPECIFIED; N18.9 - CHRONIC KIDNEY DISEASE, UNSPECIFIED Qualifiers: Chronic kidney disease stage: stage 4 (severe) (2) CHF exacerbation Code(s): I50.9 - HEART FAILURE, UNSPECIFIED Qualifiers: Heart failure type: unspecified Qualified Code(s): I50.9 - Heart failure, unspecified (3) COPD exacerbation Code(s): J44.1 - CHRONIC OBSTRUCTIVE PULMONARY DISEASE W (ACUTE) EXACERBATION Assessment/Plan Current Medications Generic Name Dose Route Start Last Admin Trade Name Freq PRN Reason Stop Dose Admin Acetaminophen 650 mg 01/14/19 16:03 01/15/19 21:21 Tylenol - PO 650 mg Q6H PRN Administration PAIN LEVEL 1-5 Apixaban 2.5 mg 01/17/19 22:00 01/25/19 10:14 Eliquis - PO 2.5 mg BID KESHAWN Administration Atorvastatin Calcium 20 mg 01/13/19 22:00 01/24/19 22:05 Lipitor - PO 20 mg HS KESHAWN Administration Budesonide/Formoterol Fumarate 2 puff 01/15/19 10:00 01/25/19 10:15 Symbicort 80/4.5mcg - IH 2 puff BID KESHAWN Administration Diltiazem HCl 120 mg 01/14/19 10:00 01/25/19 10:15 Cardizem Cd - PO 120 mg DAILY KESHAWN Administration Furosemide 40 mg 01/25/19 14:08 01/25/19 10:16 Lasix Injection - IVPUSH 40 mg BID@0600,1400 KESHAWN Administration Metoprolol Succinate 50 mg 01/13/19 22:00 01/25/19 10:14 Toprol Xl - PO 50 mg BID KESHAWN Administration Pantoprazole Sodium 40 mg 01/14/19 10:00 01/25/19 10:14 Protonix - PO 40 mg DAILY KESHAWN Administration Tiotropium [place] 2 puff 01/14/19 10:00 01/25/19 10:15 Spiriva Respimat IH 2 puff DAILY KESHAWN Administration Impression 1. CKD 2. PAULA 3. COPD 4. asthma 5. dyspnea 6. HTN 7. a-fib 8. CHF 9. CAD Plan - cont lasix - repeat labs in am - repeat coags as well - monitor urine output - discussed posibility of halfway hd with pt and her daughter - serologies neg so far - renal diet for now
[2019-01-25] MEDS ORDERED: diphenhydrAMINE HCL 25 MG CAPSULE (FP) PO ONE (17:15)
[2019-01-25] MEDS ORDERED: MELATONIN 5 MG TABLETS PO ONE (21:36)
[2019-01-25] MEDS: ATORVASTATIN CA 20 MG TABLET (FP) PO SCH (22:42)
[2019-01-26] MEDS: FUROSEMIDE 40 MG/4 ML INJECTABLE VIAL IVPUSH SCH ×2 (05:52→14:08)
[2019-01-26 06:36] LABS: BASO % 0.8 % (0-2.0); EOS % 1.7 % (0-4.5); HEMATOCRIT 33.2 % (32.4-45.2); HEMOGLOBIN 10.3 GM/dL (10.7-15.3); LYMPH % 9.4 % (8-40); MCH 26.4 pg (25.7-33.7); MCHC 30.9 g/dl (32.0-36.0); MEAN CELL VOLUME 85.5 fl (80-96); MEAN PLT VOLUME 8.3 fl (7.5-11.1); NEUT % 77.1 % (42.8-82.8); PLATELET COUNT 212 K/MM3 (134-434); RBC 3.88 M/mm3 (3.60-5.2); RDW 17.3 % (11.6-15.6); WHITE BLOOD COUNT 11.5 K/mm3 (4.0-10.0)
[2019-01-26 06:51] LABS: INR 1.49 (0.83-1.09); PROTHROMBIN TIME (PATIENT) 17.6 SEC (9.7-13.0)
[2019-01-26 06:58] LABS: ALBUMIN 3.2 g/dl (3.4-5.0); BILIRUBIN,TOTAL 0.6 mg/dL (0.2-1); BLOOD UREA NITROGEN 58.5 mg/dL (7-18); CALCIUM 8.9 mg/dL (8.5-10.1); CREATININE 3.2 mg/dL (0.55-1.3); POTASSIUM 3.7 mmol/L (3.5-5.1); TOT PROT 6.4 g/dl (6.4-8.2)
--- NOTE | 2019-01-26 07:57 | PN ---
Progress Note, Physician History of Present Illness: 88y/o F h/o COPD and diastolic CHF, Afib with recent admission for SOB predominantly COPD exacerbation completed prednisone course now p/w several days progressive sob/orthopnea/FRYE and chest pain with leg swelling. Seen by covering physician for Dr. Johnson and lasix increased from 40mg daily to 40+ 20mg daily with increased urine output but progressive SOB/leg swelling. presents now for persistent SOB. - Current Medication List Current Medications: Active Medications Acetaminophen (Tylenol -) 650 mg PO Q6H PRN PRN Reason: PAIN LEVEL 1-5 Last Admin: 01/15/19 21:21 Dose: 650 mg Apixaban (Eliquis -) 2.5 mg PO BID [facility] Last Admin: 01/25/19 22:43 Dose: 2.5 mg Atorvastatin Calcium (Lipitor -) 20 mg PO HS [facility] Last Admin: 01/25/19 22:42 Dose: 20 mg Budesonide/Formoterol Fumarate (Symbicort 80/4.5mcg -) 2 puff IH BID [facility] Last Admin: 01/25/19 22:43 Dose: 2 puff Diltiazem HCl (Cardizem Cd -) 120 mg PO DAILY [facility] Last Admin: 01/25/19 10:15 Dose: 120 mg Furosemide (Lasix Injection -) 40 mg IVPUSH BID@0600,1400 [facility] Last Admin: 01/26/19 05:52 Dose: 40 mg Metoprolol Succinate (Toprol Xl -) 50 mg PO BID [facility] Last Admin: 01/25/19 22:42 Dose: 50 mg Pantoprazole Sodium (Protonix -) 40 mg PO DAILY [facility] Last Admin: 01/25/19 10:14 Dose: 40 mg Tiotropium [place] (Spiriva Respimat) 2 puff IH DAILY [facility] Last Admin: 01/25/19 10:15 Dose: 2 puff - Objective Vital Signs: Vital Signs Temperature 97.9 F 01/26/19 06:00 Pulse Rate 88 01/26/19 06:00 Respiratory Rate 20 01/26/19 06:00 Blood Pressure 105/72 01/26/19 06:00 O2 Sat by Pulse Oximetry (%) 98 01/26/19 00:18 Eyes: Yes: WNL, Conjunctiva Clear, EOM Intact HENT: Yes: WNL, Atraumatic, Normocephalic Neck: Yes: WNL, Supple, Trachea Midline Cardiovascular: Yes: WNL, Regular Rate and Rhythm Respiratory: Yes: WNL, Regular, CTA Bilaterally Gastrointestinal: Yes: WNL, Normal Bowel Sounds Genitourinary: Yes: WNL Musculoskeletal: Yes: WNL Extremities: Yes: WNL Edema: No Integumentary: Yes: WNL Neurological: Yes: WNL, Alert, Oriented ...Motor Strength: WNL Psychiatric: Yes: WNL Labs: CBC, BMP 01/26/19 05:30 01/26/19 05:30 INR, PTT INR 1.49 (0.83-1.09) H 01/26/19 05:30 Assessment/Plan Problems (1) Yetlj-sg-[id number] kidney injury Assessment/Plan: f/u with sales support coordinator regarding ongoing hemodialysis. May require permacath. Code(s): N17.9 - ACUTE KIDNEY FAILURE, UNSPECIFIED; N18.9 - CHRONIC KIDNEY DISEASE, UNSPECIFIED Qualifiers: Chronic kidney disease stage: stage 4 (severe) (2) COPD exacerbation Code(s): J44.1 - CHRONIC OBSTRUCTIVE PULMONARY DISEASE W (ACUTE) EXACERBATION (3) HTN (hypertension) Code(s): I10 - ESSENTIAL (PRIMARY) HYPERTENSION (4) Paroxysmal atrial fibrillation Assessment/Plan: On metoprolol and diltiazem. On apixaban for anticoagulation. Code(s): I48.0 - PAROXYSMAL ATRIAL FIBRILLATION (5) Acute on chronic diastolic CHF (congestive heart failure) Code(s): I50.33 - ACUTE ON CHRONIC DIASTOLIC (CONGESTIVE) HEART FAILURE
--- NOTE | 2019-01-26 10:49 | PN ---
Physical Exam: SUBJECTIVE: Patient seen and examined OBJECTIVE: Vital Signs Period Temp Pulse Resp BP Sys/Perez Pulse Ox Last 24 Hr 97.5 F-98.6 F 82-91 20-20 103-123/57-72 96-98 GENERAL: The patient is awake, alert, and fully oriented, in no acute distress. HEAD: Normal with no signs of trauma. EYES: PERRL, extraocular movements intact, sclera anicteric, conjunctiva clear. No ptosis. ENT: Ears normal, nares patent, oropharynx clear without exudates, moist mucous membranes. NECK: Trachea midline, full range of motion, supple. LUNGS: Breath sounds equal, clear to auscultation bilaterally, no wheezes, no crackles, no accessory muscle use. HEART: Regular rate and rhythm, S1, S2 without murmur, rub or gallop. ABDOMEN: Soft, nontender, nondistended, normoactive bowel sounds, no guarding, no rebound, no hepatosplenomegaly, no masses. EXTREMITIES: 2+ pulses, warm, well-perfused, no edema. NEUROLOGICAL: Cranial nerves II through XII grossly intact. Normal speech, gait not observed. PSYCH: Normal mood, normal affect. SKIN: Warm, dry, normal turgor, no rashes or lesions noted Laboratory Results - last 24 hr 01/25/19 01/25/19 01/25/19 11:41 17:11 22:50 WBC RBC Hgb Hct MCV MCH MCHC RDW Plt Count MPV Absolute Neuts (auto) Neutrophils % Lymphocytes % Monocytes % Eosinophils % Basophils % Nucleated RBC % PT with INR INR Sodium Potassium Chloride Carbon Dioxide Anion Gap BUN Creatinine Est GFR (CKD-EPI)AfAm Est GFR (CKD-EPI)NonAf POC Glucometer 168 123 133 Random Glucose Calcium Total Bilirubin AST ALT Alkaline Phosphatase Total Protein Albumin 01/26/19 01/26/19 01/26/19 05:30 05:30 05:30 WBC 11.5 H RBC 3.88 Hgb 10.3 L Hct 33.2 MCV 85.5 MCH 26.4 MCHC 30.9 L RDW 17.3 H Plt Count 212 MPV 8.3 Absolute Neuts (auto) 8.8 H Neutrophils % 77.1 Lymphocytes % 9.4 Monocytes % 11.0 H Eosinophils % 1.7 Basophils % 0.8 Nucleated RBC % 0 PT with INR 17.60 H INR 1.49 H Sodium 141 Potassium 3.7 Chloride 102 Carbon Dioxide 29 Anion Gap 11 BUN 58.5 H Creatinine 3.2 H Est GFR (CKD-EPI)AfAm 14.48 Est GFR (CKD-EPI)NonAf 12.49 POC Glucometer Random Glucose 98 Calcium 8.9 Total Bilirubin 0.6 AST 23 ALT 20 Alkaline Phosphatase 183 H Total Protein 6.4 Albumin 3.2 L Active Medications Generic Name Dose Route Start Last Admin Trade Name Freq PRN Reason Stop Dose Admin Acetaminophen 650 mg 01/14/19 16:03 01/15/19 21:21 Tylenol - PO 650 mg Q6H PRN Administration PAIN LEVEL 1-5 Apixaban 2.5 mg 01/17/19 22:00 01/25/19 22:43 Eliquis - PO 2.5 mg BID KESHAWN Administration Atorvastatin Calcium 20 mg 01/13/19 22:00 01/25/19 22:42 Lipitor - PO 20 mg HS KESHAWN Administration Budesonide/Formoterol Fumarate 2 puff 01/15/19 10:00 01/25/19 22:43 Symbicort 80/4.5mcg - IH 2 puff BID KESHAWN Administration Diltiazem HCl 120 mg 01/14/19 10:00 01/25/19 10:15 Cardizem Cd - PO 120 mg DAILY KESHAWN Administration Furosemide 40 mg 01/25/19 14:08 01/26/19 05:52 Lasix Injection - IVPUSH 40 mg BID@0600,1400 KESHAWN Administration Metoprolol Succinate 50 mg 01/13/19 22:00 01/25/19 22:42 Toprol Xl - PO 50 mg BID KESHAWN Administration Pantoprazole Sodium 40 mg 01/14/19 10:00 01/25/19 10:14 Protonix - PO 40 mg DAILY KESHAWN Administration Tiotropium [place] 2 puff 01/14/19 10:00 01/25/19 10:15 Spiriva Respimat IH 2 puff DAILY KESHAWN Administration ASSESSMENT/PLAN: ATTENDING PHYSICIAN STATEMENT I saw and evaluated the patient. I reviewed the resident's note and discussed the case with the resident. I agree with the resident's findings and plan as documented. SUBJECTIVE: OBJECTIVE: ASSESSMENT AND PLAN:
[2019-01-26] MEDS: metoPROLOL SUCCINATE 25 MG TAB.SR.24H (FP) PO SCH (11:01)
[2019-01-26] MEDS: PANTOPRAZOLE 40 MG TABLET (FP) PO SCH (11:01)
[2019-01-26] MEDS: APIXABAN 2.5 MG TABLET PO SCH (11:02)
[2019-01-26] MEDS: BUDESONIDE/FORMETEROL FUMARATE 80/4.5 mcg INHALER IH SCH (11:03)
[2019-01-26] MEDS: TIOTROPIUM BROMIDE 2.5 MCG (SPIRIVA) RESPIMAT INHALER IH SCH (11:03)
--- NOTE | 2019-01-26 12:56 | PN ---
Progress Note, Physician History of Present Illness: Pt seen and examined at bedside. She is awake and alert. She feels that her breathing is improved. - Current Medication List Current Medications: Active Medications Acetaminophen (Tylenol -) 650 mg PO Q6H PRN PRN Reason: PAIN LEVEL 1-5 Last Admin: 01/15/19 21:21 Dose: 650 mg Apixaban (Eliquis -) 2.5 mg PO BID [facility] Last Admin: 01/26/19 11:02 Dose: 2.5 mg Atorvastatin Calcium (Lipitor -) 20 mg PO HS [facility] Last Admin: 01/25/19 22:42 Dose: 20 mg Budesonide/Formoterol Fumarate (Symbicort 80/4.5mcg -) 2 puff IH BID [facility] Last Admin: 01/26/19 11:03 Dose: 2 puff Diltiazem HCl (Cardizem Cd -) 120 mg PO DAILY [facility] Last Admin: 01/26/19 11:01 Dose: 120 mg Furosemide (Lasix Injection -) 40 mg IVPUSH BID@0600,1400 [facility] Last Admin: 01/26/19 05:52 Dose: 40 mg Metoprolol Succinate (Toprol Xl -) 50 mg PO BID [facility] Last Admin: 01/26/19 11:01 Dose: 50 mg Pantoprazole Sodium (Protonix -) 40 mg PO DAILY [facility] Last Admin: 01/26/19 11:01 Dose: 40 mg Tiotropium [place] (Spiriva Respimat) 2 puff IH DAILY [facility] Last Admin: 01/26/19 11:03 Dose: 2 puff - Objective Vital Signs: Vital Signs Temperature 97.8 F 01/26/19 11:00 Pulse Rate 90 01/26/19 11:00 Respiratory Rate 18 01/26/19 11:00 Blood Pressure 106/70 01/26/19 11:00 O2 Sat by Pulse Oximetry (%) 97 01/26/19 09:00 Constitutional: Yes: Calm Eyes: Yes: Conjunctiva Clear HENT: Yes: Atraumatic Neck: Yes: Supple Cardiovascular: Yes: S1, S2 Respiratory: Yes: On Nasal O2 Genitourinary: Yes: Contreras Present Musculoskeletal: Yes: WNL Edema: Yes Edema: LLE: 1+, RLE: 1+ Neurological: Yes: Oriented Psychiatric: Yes: Oriented Labs: CBC, BMP 01/26/19 05:30 01/26/19 05:30 INR, PTT INR 1.49 (0.83-1.09) H 01/26/19 05:30 Problem List - Problems (1) [id number] kidney injury Code(s): N17.9 - ACUTE KIDNEY FAILURE, UNSPECIFIED; N18.9 - CHRONIC KIDNEY DISEASE, UNSPECIFIED Qualifiers: Chronic kidney disease stage: stage 4 (severe) (2) CHF exacerbation Code(s): I50.9 - HEART FAILURE, UNSPECIFIED Qualifiers: Heart failure type: unspecified Qualified Code(s): I50.9 - Heart failure, unspecified (3) COPD exacerbation Code(s): J44.1 - CHRONIC OBSTRUCTIVE PULMONARY DISEASE W (ACUTE) EXACERBATION Assessment/Plan Current Medications Generic Name Dose Route Start Last Admin Trade Name Freq PRN Reason Stop Dose Admin Acetaminophen 650 mg 01/14/19 16:03 01/15/19 21:21 Tylenol - PO 650 mg Q6H PRN Administration PAIN LEVEL 1-5 Apixaban 2.5 mg 01/17/19 22:00 01/26/19 11:02 Eliquis - PO 2.5 mg BID KESHAWN Administration Atorvastatin Calcium 20 mg 01/13/19 22:00 01/25/19 22:42 Lipitor - PO 20 mg HS KESHAWN Administration Budesonide/Formoterol Fumarate 2 puff 01/15/19 10:00 01/26/19 11:03 Symbicort 80/4.5mcg - IH 2 puff BID KESHAWN Administration Diltiazem HCl 120 mg 01/14/19 10:00 01/26/19 11:01 Cardizem Cd - PO 120 mg DAILY KESHAWN Administration Furosemide 40 mg 01/25/19 14:08 01/26/19 05:52 Lasix Injection - IVPUSH 40 mg BID@0600,1400 KESHAWN Administration Metoprolol Succinate 50 mg 01/13/19 22:00 01/26/19 11:01 Toprol Xl - PO 50 mg BID KESHAWN Administration Pantoprazole Sodium 40 mg 01/14/19 10:00 01/26/19 11:01 Protonix - PO 40 mg DAILY KESHAWN Administration Tiotropium [place] 2 puff 01/14/19 10:00 01/26/19 11:03 Spiriva Respimat IH 2 puff DAILY KESHAWN Administration Impression 1. CKD 2. PAULA 3. COPD 4. asthma 5. dyspnea 6. HTN 7. a-fib 8. CHF 9. CAD Plan - cont lasix - can d/c contreras - pt is making urine - will need larger doses of PO lasix at home, can give 40 BID - will need close follow up with renal as outpt - serologies neg so far - renal diet for now
--- NOTE | 2019-01-26 14:23 | PN ---
Teaching Attending Note Name of Resident: Samantha Dash ATTENDING PHYSICIAN STATEMENT I saw and evaluated the patient. I reviewed the resident's note and discussed the case with the resident. I agree with the resident's findings and plan as documented. SUBJECTIVE: Patient has no complaints. OBJECTIVE: Vital Signs Period Temp Pulse Resp BP Sys/Perez Pulse Ox Last 24 Hr 97.5 F-97.9 F 82-90 18-20 104-123/57-72 96-98 HEART: S1S2, RRR LUNGS: Clear ABDOMEN: Obese, soft, non-tender, non-distended, normal BS EXTREMITIES: 2+ edema Laboratory Results - last 24 hr 01/25/19 01/25/19 01/26/19 17:11 22:50 05:30 WBC 11.5 H RBC 3.88 Hgb 10.3 L Hct 33.2 MCV 85.5 MCH 26.4 MCHC 30.9 L RDW 17.3 H Plt Count 212 MPV 8.3 Absolute Neuts (auto) 8.8 H Neutrophils % 77.1 Lymphocytes % 9.4 Monocytes % 11.0 H Eosinophils % 1.7 Basophils % 0.8 Nucleated RBC % 0 PT with INR INR Sodium Potassium Chloride Carbon Dioxide Anion Gap BUN Creatinine Est GFR (CKD-EPI)AfAm Est GFR (CKD-EPI)NonAf POC Glucometer 123 133 Random Glucose Calcium Total Bilirubin AST ALT Alkaline Phosphatase Total Protein Albumin 01/26/19 01/26/19 01/26/19 05:30 05:30 11:15 WBC RBC Hgb Hct MCV MCH MCHC RDW Plt Count MPV Absolute Neuts (auto) Neutrophils % Lymphocytes % Monocytes % Eosinophils % Basophils % Nucleated RBC % PT with INR 17.60 H INR 1.49 H Sodium 141 Potassium 3.7 Chloride 102 Carbon Dioxide 29 Anion Gap 11 BUN 58.5 H Creatinine 3.2 H Est GFR (CKD-EPI)AfAm 14.48 Est GFR (CKD-EPI)NonAf 12.49 POC Glucometer 93 Random Glucose 98 Calcium 8.9 Total Bilirubin 0.6 AST 23 ALT 20 Alkaline Phosphatase 183 H Total Protein 6.4 Albumin 3.2 L Current Medications Generic Name Dose Route Start Last Admin Trade Name Freq PRN Reason Stop Dose Admin Acetaminophen 650 mg 01/14/19 16:03 01/15/19 21:21 Tylenol - PO 650 mg Q6H PRN Administration PAIN LEVEL 1-5 Apixaban 2.5 mg 01/17/19 22:00 01/26/19 11:02 Eliquis - PO 2.5 mg BID KESHAWN Administration Atorvastatin Calcium 20 mg 01/13/19 22:00 01/25/19 22:42 Lipitor - PO 20 mg HS KESHAWN Administration Budesonide/Formoterol Fumarate 2 puff 01/15/19 10:00 01/26/19 11:03 Symbicort 80/4.5mcg - IH 2 puff BID KESHAWN Administration Diltiazem HCl 120 mg 01/14/19 10:00 01/26/19 11:01 Cardizem Cd - PO 120 mg DAILY KESHAWN Administration Furosemide 40 mg 01/25/19 14:08 01/26/19 14:08 Lasix Injection - IVPUSH 40 mg BID@0600,1400 KESHAWN Administration Metoprolol Succinate 50 mg 01/13/19 22:00 01/26/19 11:01 Toprol Xl - PO 50 mg BID EKSHAWN Administration Pantoprazole Sodium 40 mg 01/14/19 10:00 01/26/19 11:01 Protonix - PO 40 mg DAILY KESHAWN Administration Tiotropium [place] 2 puff 01/14/19 10:00 01/26/19 11:03 Spiriva Respimat IH 2 puff DAILY KESHAWN Administration ASSESSMENT AND PLAN: This is an 88 year old woman with a history of chronic hypoxic and hypercapneic respiratory failure, COPD, chronic diastolic heart failure, atrial fibrillation , pacemaker, HTN, CAD, LBBB, hyperlipidemia, stage 4 CKD, CVA who presented to the ED with cough and shortness of breath. 1. Acute metabolic encephalopathy - Resolved 2. Acute on chronic hypoxic and hypercapneic respiratory failure secondary to acute on chronic diastolic heart failure, acute exacerbation of COPD - Continue oxygen - Continue Symbicort, Spiriva - Continue Lasix 3. Hyperlipidemia - Continue Lipitor 4. Acute kidney injury - Resolved 5. Stage 4 CKD 6. Atrial fibrillation with RVR - Continue Cardizem CD, Toprol XL, Eliquis 7. HTN - Continue Cardizem CD, Toprol XL, Lasix 8. CAD - Continue Toprol XL, Lipitor 9. History of pacemaker 10. History of CVA 11. Disposition - Ok for discharge home on oxygen, Lasix
--- NOTE | 2019-01-26 14:59 | DS ---
Physical Exam: SUBJECTIVE: Patient seen and examined. She denies chest pain or abdominal pain. She has been eating well. Her shortness of breath is much improved. She has some pedal edema which is her baseline. OBJECTIVE: Vital Signs Period Temp Pulse Resp BP Sys/Perez Pulse Ox Last 24 Hr 97.5 F-97.9 F 82-90 18-20 104-123/57-72 96-98 PHYSICAL EXAM GENERAL: The patient is awake, alert, and fully oriented, in no acute distress. HEAD: Normal with no signs of trauma. EYES: PERRL, extraocular movements intact, sclera anicteric, conjunctiva clear. ENT: Ears normal, nares patent, moist mucous membranes. NECK: Trachea midline, full range of motion, supple. LUNGS: Breath sounds equal, clear to auscultation bilaterally, no wheezes, no crackles, no accessory muscle use. HEART: Regular rate and rhythm, S1, S2 without murmur, rub or gallop. ABDOMEN: Soft, nontender, nondistended, normoactive bowel sounds EXTREMITIES: 2+ pulses, warm, well-perfused, no edema. NEUROLOGICAL: Cranial nerves II through XII grossly intact. Normal speech, gait not observed. PSYCH: Normal mood, normal affect. SKIN: Warm, dry, normal turgor, no rashes or lesions noted. urine output 1300cc LABS Laboratory Results - last 24 hr 01/25/19 01/25/19 01/26/19 17:11 22:50 05:30 WBC 11.5 H RBC 3.88 Hgb 10.3 L Hct 33.2 MCV 85.5 MCH 26.4 MCHC 30.9 L RDW 17.3 H Plt Count 212 MPV 8.3 Absolute Neuts (auto) 8.8 H Neutrophils % 77.1 Lymphocytes % 9.4 Monocytes % 11.0 H Eosinophils % 1.7 Basophils % 0.8 Nucleated RBC % 0 PT with INR INR Sodium Potassium Chloride Carbon Dioxide Anion Gap BUN Creatinine Est GFR (CKD-EPI)AfAm Est GFR (CKD-EPI)NonAf POC Glucometer 123 133 Random Glucose Calcium Total Bilirubin AST ALT Alkaline Phosphatase Total Protein Albumin 01/26/19 01/26/19 01/26/19 05:30 05:30 11:15 WBC RBC Hgb Hct MCV MCH MCHC RDW Plt Count MPV Absolute Neuts (auto) Neutrophils % Lymphocytes % Monocytes % Eosinophils % Basophils % Nucleated RBC % PT with INR 17.60 H INR 1.49 H Sodium 141 Potassium 3.7 Chloride 102 Carbon Dioxide 29 Anion Gap 11 BUN 58.5 H Creatinine 3.2 H Est GFR (CKD-EPI)AfAm 14.48 Est GFR (CKD-EPI)NonAf 12.49 POC Glucometer 93 Random Glucose 98 Calcium 8.9 Total Bilirubin 0.6 AST 23 ALT 20 Alkaline Phosphatase 183 H Total Protein 6.4 Albumin 3.2 L HOSPITAL COURSE: Ms. Owen is an 88 y/o female with history of chronic respiratory failure on COPD (3L at home), chronic diastolic heart failure, Atrial fibrillation (on Eliquis, s/p PPM), coronary artery disease, hypertension, chronic LBBB, hyperlipidemia, CKD 4, and CVA, presented with FRYE and cough. She was found to not have been taking the correct dosage of Lasix at home. She was diuresed with IV Lasix, then she began having altered mental status. She was uremic, so the patient received 4 sessions of HD and greatly improved. Pt received HD 2/2 rapid BUN increase and worsening kidney function. Date of Admission:01/13/19 Date of Discharge: 01/26/19 Discharge Summary Reason For Visit: COPD,CHF,ATRIAL FIB W RAPID VENT RESP Current Active Problems Xlqqy-go-wkinpce kidney injury (Acute) CHF exacerbation (Acute) COPD exacerbation (Acute) HTN (hypertension) (Acute) Paroxysmal atrial fibrillation (Acute) Toxic metabolic encephalopathy (Acute) Condition: Improved - Instructions Diet, Activity, Other Instructions: YOUR VISIT You came to the hospital because you were experiencing shortness of breath. You were admitted to the hospital for care of these symptoms. Your medications were adjusted and you had dialysis which improved your breathing. You also had abdominal pain and a scan did not show anything emergent that was causing the pain. This is something you should follow up with Dr. Hightower to see if you need more workup. MEDICATIONS Continue to take Lipitor (atorvastatin) according to instructions on the bottle. Continue to take Eliquis (apixaban) according to instructions on the bottle. Continue to take Prilosec (omeprazole) according to instructions on the bottle. Continue to take your inhalers according to the instructions. Start taking Cardizem (diltiazem) 120mg once a day. Your dose of Toprol XL (metoprolol) was increased to 50mg twice a day. Stop taking Norvasc (amlodipine). ADDITIONAL CARE Please make an appointment to see your primary care provider, Dr. Franklin, 1 week from today. Please make an appointment to see a nephologist 1 week from today. A referral to Dr. Barrios has been provided. Please make an appointment to see a library specialist 1 week from today. A referral to Dr. Devi has been provided. Please make an appointment to see a surgeon 1 week from today. A referral to Dr. Hightower has been provided. He will determine if you need more workup for the abdominal pain you were experiencing. ADDITIONAL INFORMATION Please call 911 or come directly to the emergency department if you experience unusual headache, vision change, shortness of breath, chest pain, numbness, tingling, loss of alertness/awareness, loss of function, unusual bleeding or any alarming symptoms. Referrals: Moncho Hightower MD [Staff Physician] - Diaz Johnson MD [Primary Care Provider] - Michell Barrios MD [Staff Physician] - Luis Antonio Devi MD [Staff Physician] - Disposition: HOME - Home Medications Comprehensive Discharge Medication List: Ambulatory Orders Apixaban [Eliquis] 2.5 tab PO BID 05/22/17 Fluticasone/Salmeterol [Advair Hfa 230-21 Mcg Inhaler] 12 gm IH DAILY 05/22/17 Lipase/Protease/Amylase [Creon Dr 36,000 Units Capsule] 1 each PO Q8H 05/22/17 Omeprazole 40 mg PO DAILY 05/22/17 Simvastatin 40 mg PO DAILY 05/22/17 Tiotropium [place] [Spiriva] 2.5 mcg IH BID 05/22/17 Diltiazem Cd [Cardizem Cd -] 120 mg PO DAILY 30 Days #30 cap.cd.24h 01/26/19 Furosemide [Lasix] 40 mg PO BID 30 Days #60 tablet 01/26/19 Metoprolol Succinate [Toprol Xl] 50 mg PO BID 30 Days #60 tab.er.24h 01/26/19 - Discharge Referral Referred to [facility] No ATTENDING PHYSICIAN STATEMENT I saw and evaluated the patient. I reviewed the resident's note and discussed the case with the resident. I agree with the resident's findings and plan as documented. SUBJECTIVE: OBJECTIVE: ASSESSMENT AND PLAN:
[2019-01-26 16:15] VITALS: BP 101/58; PULSE 80; TEMP 98.5
== END 2019-01-26 17:27 | disposition home health service (06) | DRG 291 ==
LOC: JER 09:34 → JERBED 12:36 → J4W 21:29
PROVIDERS: ATTEND Internal Medicine
PROC: 5A09557 Assistance with Respiratory Ventilation, Greater than 96 Consecutive Hours, Continuous Positive Airway Pressure (ICD-10-PCS; principal; 2019-01-13)
PROC: 05HM33Z Insertion of Infusion Device into Right Internal Jugular Vein, Percutaneous Approach (ICD-10-PCS; 2019-01-16)
DX: I13.0 Hypertensive heart and chronic kidney disease with heart failure and stage 1 through stage 4 chronic kidney disease, or unspecified chronic kidney disease (principal); G93.41 Metabolic encephalopathy; I50.33 Acute on chronic diastolic (congestive) heart failure; J96.21 Acute and chronic respiratory failure with hypoxia; J96.22 Acute and chronic respiratory failure with hypercapnia; E87.2 Acidosis; N17.9 Acute kidney failure, unspecified; J44.1 Chronic obstructive pulmonary disease with (acute) exacerbation; N18.4 Chronic kidney disease, stage 4 (severe); E87.1 Hypo-osmolality and hyponatremia; J44.9 Chronic obstructive pulmonary disease, unspecified; I48.0 Paroxysmal atrial fibrillation; E78.5 Hyperlipidemia, unspecified; I25.10 Atherosclerotic heart disease of native coronary artery without angina pectoris; Z95.0 Presence of cardiac pacemaker; I27.20 Pulmonary hypertension, unspecified; G47.30 Sleep apnea, unspecified; D72.829 Elevated white blood cell count, unspecified; J45.909 Unspecified asthma, uncomplicated; E87.70 Fluid overload, unspecified; K21.9 Gastro-esophageal reflux disease without esophagitis
CPT/HCPCS: 36415; 36430; 36600; 71045-TC-FY; 74176-TC; 76705-TC; 76775-TC; 80048; 80053; 81003; 82140; 82375; 82550; 82803; 82962; 83050; 83520; 83690; 83735; 83880; 84100; 84155; 84165; 84484; 85025; 85027; 85610; 85730; 86038; 86225; 86256; 86704; 86706; 86707; 86708; 86709; 86850; 86900; 86901; 87340; 87522; 93005; 93010; 94640; 94660; 97116-GP; 97162-GP; 99285-25; P9017; Q9967

== ENCOUNTER 2019-02-12 13:03 | Inpatient (IN) | payer OTHER ==
--- NOTE | 2019-02-12 14:14 | PDOC ---
History of Present Illness - General Chief Complaint: Edema Stated Complaint: LEG PAIN Time Seen by Provider: 02/12/19 13:56 Past History - Past Medical History Allergies/Adverse Reactions: Allergies Allergy/AdvReac Type Severity Reaction Status Date / Time aspirin Allergy Verified 12/24/18 09:29 Home Medications: Ambulatory Orders Apixaban [Eliquis] 2.5 tab PO BID 05/22/17 Fluticasone/Salmeterol [Advair Hfa 230-21 Mcg Inhaler] 12 gm IH DAILY 05/22/17 Omeprazole 40 mg PO DAILY 05/22/17 Simvastatin 40 mg PO DAILY 05/22/17 Tiotropium [place] [Spiriva] 2.5 mcg IH BID 05/22/17 Diltiazem Cd [Cardizem Cd -] 120 mg PO DAILY 30 Days #30 cap.cd.24h 01/26/19 Furosemide [Lasix] 40 mg PO BID 30 Days #60 tablet 01/26/19 Metoprolol Succinate [Toprol Xl] 50 mg PO BID 30 Days #60 tab.er.24h 01/26/19 Anemia: No Asthma: Yes Cancer: No Cardiac Disorders: Yes (AF, PPM, CAD, NE) CVA: Yes COPD: Yes CHF: No Dementia: No Diabetes: No GI Disorders: Yes (GASTRITIS) Disorders: No HTN: Yes Hypercholesterolemia: Yes Liver Disease: No Seizures: No Thyroid Disease: No - Surgical History Abdominal Surgery: No Appendectomy: No Cardiac Surgery: Yes (PACEMAKER) Cholecystectomy: No Lung Surgery: No Neurologic Surgery: No Orthopedic Surgery: No - Immunization History Td Vaccination: No TDAP Vaccination: No Immunization Up to Date: No - Psycho Social/Smoking Cessation Hx Smoking Status: Yes Smoking History: Unknown if ever smoked Have you smoked in the past 12 months: No Number of Cigarettes Smoked Daily: 0 If you are a former smoker, when did you quit?: 1994 'Breaking Loose' booklet given: 11/04/18 Hx Alcohol Use: No Drug/Substance Use Hx: No Substance Use Type: None Hx Substance Use Treatment: No *Physical Exam - Vital Signs Last Vital Signs Temp Pulse Resp BP Pulse Ox 97.5 F L 71 16 103/56 L 100 02/12/19 13:05 02/12/19 13:05 02/12/19 13:05 02/12/19 13:05 02/12/19 13:05 ED Treatment Course - LABORATORY CBC & Chemistry Diagram: 02/13/19 05:35 02/13/19 05:35 - RADIOLOGY Radiology Studies Ordered: Category Date Time Status CHEST X-RAY PORTABLE* [RAD] Stat Radiology 02/12/19 14:13 Ordered Medical Decision Making - Medical Decision Making HPI: 88yo F with PMH of CHF, COPD (3L home O2), asthma, CVA, gastritis, afib (eliquis , s/p pacemaker), CAD, NE, HTN, HLD, GERD, and CKD who complaining of SOB. Daughter is at the bedside providing collateral history. Patient has been short of breath for the past two weeks, but especially last night. Has been unable to lay flat at bedtime. While she has some leg swelling at baseline, it has significantly worsened such that she has severe pain. Also endorsing chest pain. Patient reports compliance to medications and also adherent to fluid restriction. Was recently admitted to our hospital with similar presentation (-12/31/18 and 01/13-01/26/19). Reports epigastric pain that is at baseline. Denies fevers, but endorses chills. PCP: Dr. Johnson ROS: Constitutional: no fever, +chills HEENT: no throat pain, no dysphagia Cardiovascular: +chest pain, no palpitations Respiratory: no cough, +shortness of breath Gastrointestinal: +abdominal pain, no nausea Genitourinary: no dysuria, no hematuria Musculoskeletal: no myalgia, no arthralgia Skin: no rash, no itching Neurologic: no headache, no weakness Psych: No confusion, no agitation PE: General: Awake, alert, and fully oriented, in no acute distress Head: No signs of trauma Eyes: EOMI, sclera anicteric ENT: Moist mucus membranes Neck: Normal ROM, supple Lungs: Rales present at bilateral bases Cardio: Irregular rhythm, S1 and S2 present Abdomen: Tender to palpation in epigastrium. Soft, nondistended. No guarding, no rebound, no masses Extremities: Distal pulses present. 4+ pitting edema in BLE with mild erythema. No calf tenderness SKIN: Warm, Dry, normal turgor Neurologic: Cranial nerves II through XII grossly intact. Normal speech ED Course/MDM: DDX including but not limited to COPD/asthma/CHF exacerbation, ACS, PE, PNA, GERD Labs, EKG, CXR [facility] EKG: rate 75, Qtc 506, paced rhythm 02/12/19 14:14 CXR as reported by radiology: "Since 01/20/2019, the cardiac silhouette remains enlarged. Bilateral increased interstitial lung markings have slightly worsened since the prior examination suggestive of worsening interstitial infiltrates or pulmonary venous congestion. There is also suggestion of interval slight increase left pleural effusion that remains small. A left-sided pacer with leads again seen satisfactory position. Right internal jugular central catheter is present with its tip in the region of the superior vena cava. No gross pneumothorax is identified IMPRESSION: There is suggestion of interval mild worsening for pulmonary venous congestion versus interstitial infiltrates. A small left pleural effusion that has also slightly increased since the prior examination. Correlate clinically and follow up is needed " 02/12/19 15:08 CBC WBC 11.6 K/mm3 (4.0-10.0) H 02/12/19 15:25 RBC 3.63 M/mm3 (3.60-5.2) 02/12/19 15:25 Hgb 9.4 GM/dL (10.7-15.3) L 02/12/19 15:25 Hct 31.0 % (32.4-45.2) L 02/12/19 15:25 MCV 85.6 fl (80-96) 02/12/19 15:25 MCH 25.8 pg (25.7-33.7) 02/12/19 15:25 MCHC 30.1 g/dl (32.0-36.0) L 02/12/19 15:25 RDW 18.7 % (11.6-15.6) H 02/12/19 15:25 Plt Count 274 K/MM3 (134-434) D 02/12/19 15:25 MPV 7.6 fl (7.5-11.1) 02/12/19 15:25 Absolute Neuts (auto) 8.9 K/mm3 (1.5-8.0) H 02/12/19 15:25 Neutrophils % 76.9 % (42.8-82.8) 02/12/19 15:25 Neutrophils % (Manual) 72.9 % (42.8-82.8) 02/12/19 15:25 Band Neutrophils % 0.0 % 02/12/19 15:25 Lymphocytes % 10.8 % (8-40) 02/12/19 15:25 Lymphocytes % (Manual) 6.6 % (8-40) L 02/12/19 15:25 Monocytes % 11.0 % (3.8-10.2) H 02/12/19 15:25 Monocytes % (Manual) 8 % (3.8-10.2) D 02/12/19 15:25 Eosinophils % 0.8 % (0-4.5) 02/12/19 15:25 Eosinophils % (Manual) 0.0 % (0-4.5) 02/12/19 15:25 Basophils % 0.5 % (0-2.0) 02/12/19 15:25 Basophils % (Manual) 0.0 % (0-2.0) 02/12/19 15:25 Myelocytes % (Man) 1 % (0-2) D 02/12/19 15:25 Promyelocytes % (Man) 0 % (0-2) 02/12/19 15:25 Blast Cells % (Manual) 0 % (0-0) 02/12/19 15:25 Nucleated RBC % 0 % (0-0) 02/12/19 15:25 Metamyelocytes 0 % (0-2) 02/12/19 15:25 Hypochromia 2+ 02/12/19 15:25 Platelet Estimate Normal 02/12/19 15:25 Polychromasia 1+ 02/12/19 15:25 Anisocytosis 1+ 02/12/19 15:25 Schistocytes 1+ 02/12/19 15:25 Mild leukocytosis CMP Sodium 132 mmol/L (136-145) L 02/12/19 16:00 Potassium 4.2 mmol/L (3.5-5.1) 02/12/19 16:00 Chloride 99 mmol/L (98-107) 02/12/19 16:00 Carbon Dioxide 23 mmol/L (21-32) 02/12/19 16:00 Anion Gap 10 MMOL/L (8-16) 02/12/19 16:00 BUN 55.6 mg/dL (7-18) H 02/12/19 16:00 Creatinine 4.2 mg/dL (0.55-1.3) H 02/12/19 16:00 Est GFR (CKD-EPI)AfAm 10.42 02/12/19 16:00 Est GFR (CKD-EPI)NonAf 8.99 02/12/19 16:00 Random Glucose 105 mg/dL (74-106) 02/12/19 16:00 Calcium 8.9 mg/dL (8.5-10.1) 02/12/19 16:00 Total Bilirubin 0.6 mg/dL (0.2-1) 02/12/19 16:00 AST 20 U/L (15-37) 02/12/19 16:00 ALT 8 U/L (13-61) L 02/12/19 16:00 Alkaline Phosphatase 136 U/L (45-117) H 02/12/19 16:00 Creatine Kinase 27 U/L (26-192) 02/12/19 16:00 Troponin I < 0.02 ng/ml (0.00-0.05) 02/12/19 16:00 B-Natriuretic Peptide 6386.1 pg/ml (5-450) H 02/12/19 16:00 Total Protein 6.2 g/dl (6.4-8.2) L 02/12/19 16:00 Albumin 2.8 g/dl (3.4-5.0) L 02/12/19 16:00 Lipase 138 U/L (73-393) 02/12/19 16:00 Mild low sodium BUN and Cr elevated BNP elevated Tpn undetectable Lasix 40 ordered MB sent 02/12/19 17:59 Awaiting callback from admitting team 02/12/19 19:[address] Albrecht who accepted patient for admission under Dr. Gerard 02/12/19 19:40 Updated patient's daughter over the phone 02/12/19 20:05 Discharge - Discharge Information Problems reviewed: Yes Clinical Impression/Diagnosis: Acute exacerbation of CHF (congestive heart failure) Qualifiers: Heart failure type: unspecified Qualified Code(s): I50.9 - Heart failure, unspecified Condition: Guarded - Admission Yes - Follow up/Referral - Patient Discharge Instructions - Post Discharge Activity
--- NOTE | 2019-02-12 14:22 | PDOC ---
Attending Attestation - Resident Resident Name: Martina Cannon - HPI HPI: 02/12/19 16:19 Pt presents to the ED complaining of shortness of breath, increasing leg swelling and pain in her legs. History of ESRD on HD, missed HD today. - Physicial Exam PE: 02/12/19 16:38 Agree with resident exam. patient is alert and oriented and in no acute distress. Lung exam: + crackles. CV: rrr no m/r. ext: + 5 pitting edema to the knee bilterally. - Medical Decision Making 02/12/19 16:47 Pt presents to the ED complaining of worsening edema and shortness of breath. History of ESRD on HD. CXR shows pulmonary congestion. Differential includes CHF, overload secondary to missing HD. Will admit to medicine for continued management. 02/12/19 16:49
[2019-02-12] MEDS ORDERED: ALBUTEROL SO4 2.5/IPRATROPIUM 0.5 INH SOL 3 ML VIAL.NEB. NEB ONE ×2 (14:25→14:40)
[2019-02-12] MEDS ORDERED: ACETAMINOPHEN 1000 MG/100 ML VIAL (NON FORMULARY) IVPB ONE (15:18)
[2019-02-12 15:38] LABS: BASO % 0.5 % (0-2.0); EOS % 0.8 % (0-4.5); HEMOGLOBIN 9.4 GM/dL (10.7-15.3); LYMPH % 10.8 % (8-40); MCH 25.8 pg (25.7-33.7); MCHC 30.1 g/dl (32.0-36.0); MEAN CELL VOLUME 85.6 fl (80-96); MEAN PLT VOLUME 7.6 fl (7.5-11.1); NEUT % 76.9 % (42.8-82.8); PLATELET COUNT 274 K/MM3 (134-434); RBC 3.63 M/mm3 (3.60-5.2); RDW 18.7 % (11.6-15.6); WHITE BLOOD COUNT 11.6 K/mm3 (4.0-10.0)
[2019-02-12] MEDS ORDERED: ACETAMINOPHEN INJECTION 100 ML IVPB ONE (16:25)
[2019-02-12 16:49] LABS: ANISOCYTOSIS 1+; PLATELET ESTIMATE NORMAL
[2019-02-12 17:13] LABS: ALBUMIN 2.8 g/dl (3.4-5.0); ALK PHOS 136 U/L (45-117); ANION GAP 10 MMOL/L (8-16); BILIRUBIN,TOTAL 0.6 mg/dL (0.2-1); BLOOD UREA NITROGEN 55.6 mg/dL (7-18); CALCIUM 8.9 mg/dL (8.5-10.1); CHLORIDE 99 mmol/L (98-107); CO2 23 mmol/L (21-32); CREATININE 4.2 mg/dL (0.55-1.3); GLUCOSE,RANDOM 105 mg/dL (74-106); LIPASE 138 U/L (73-393); POTASSIUM 4.2 mmol/L (3.5-5.1); SGOT/AST 20 U/L (15-37); SGPT/ALT 8 U/L (13-61); SODIUM 132 mmol/L (136-145); TOT PROT 6.2 g/dl (6.4-8.2)
[2019-02-12] MEDS ORDERED: FUROSEMIDE 40 MG/4 ML INJECTABLE VIAL IVPUSH ONE (17:45)
[2019-02-12] MEDS ORDERED: FUROSEMIDE 40 MG/4 ML INJECTABLE VIAL ONE ×2 (17:52→22:37)
--- NOTE | 2019-02-12 19:18 | PN ---
Teaching Attending Note Name of Resident: Ksenia Albrecht ATTENDING PHYSICIAN STATEMENT I saw and evaluated the patient. I reviewed the resident's note and discussed the case with the resident. I agree with the resident's findings and plan as documented. SUBJECTIVE: Patient is a an 88 year old woman with PMH of ESRD on hemodialysis, COPD (on home oxygen, 3L), Diastolic CHF, Atrial fibrillation (on Eliquis, s/p Pacemaker) , Coronary artery disease, Hypertension, Hyperlipidemia and CVA, presents with shortness of breath worse on exertion and worsening leg edema. Daughter is at the bedside providing collateral history. Patient has been short of breath for the past two weeks, but especially last night. Has been unable to lay flat. While she has some leg swelling at baseline, it has significantly worsened such that she has severe pain. Also has chest pain. Patient reports compliance to medications and also adherent to fluid restriction. Was recently admitted to [facility] with a similar presentation (12/24/18-12/31/18 and 01/13-01/26/19). Reports epigastric pain that is at baseline. Denies fevers, but endorses chills. No vomiting. nausea or dysuria. Missed one dialysis session. Get UA if she makes urine. OBJECTIVE: Alert Vital Signs Period Temp Pulse Resp BP Sys/Perez Pulse Ox Last 24 Hr 97.5 F 60-71 16-18 103-115/56-69 99-100 HEENT: No Jaundice, eye redness or discharge, PERRLA, EOMI. Normocephalic, atraumatic. External ears are normal and hearing is grossly intact. No nasal discharge. Neck: Supple, nontender. No palpable adenopathy or thyromegaly. No JVD Chest: Good effort. Right chest permacath. Diminished breath sounds with few bibasilar crackles. Clear to percussion. Heart: Regular. No S3, rub or murmur Abdomen: Not distended, soft, nontender and no HSM. No rebound or guarding. Normal bowel sounds. Ext: Peripheral pulses intact. Leg edema with erythema. Skin: Warm and dry. No petechiae, rash or ecchymosis. Neuro: Alert. Oriented x3. CN 2-12 grossly intact. Sensation grossly intact in all four extremities and DTR are symmetric. Psych: Appropriate mood and affect. Good insight. Home Medications Medication Instructions Recorded Apixaban [Eliquis] 2.5 tab PO BID 05/22/17 Fluticasone/Salmeterol [Advair Hfa 12 gm IH DAILY 05/22/17 230-21 Mcg Inhaler] Omeprazole 40 mg PO DAILY 05/22/17 Simvastatin 40 mg PO DAILY 05/22/17 Tiotropium [place] [Spiriva] 2.5 mcg IH BID 05/22/17 Diltiazem Cd [Cardizem Cd -] 120 mg PO DAILY 30 Days #30 01/26/19 cap.cd.24h Furosemide [Lasix] 40 mg PO BID 30 Days #60 tablet 01/26/19 Metoprolol Succinate [Toprol Xl] 50 mg PO BID 30 Days #60 tab.er.24h 01/26/19 Abnormal Lab Results 02/12/19 02/12/19 02/12/19 15:25 16:00 16:00 WBC 11.6 H Hgb 9.4 L Hct 31.0 L MCHC 30.1 L RDW 18.7 H Absolute Neuts (auto) 8.9 H Lymphocytes % (Manual) 6.6 L Monocytes % 11.0 H Sodium 132 L BUN 55.6 H Creatinine 4.2 H ALT 8 L Alkaline Phosphatase 136 H B-Natriuretic Peptide 6386.1 H Total Protein 6.2 L Albumin 2.8 L ASSESSMENT AND PLAN: 1. CHF exacerbation/ESRD with fluid overload - CXR shows cardiomegaly with pulmonary vascular congestion and left side pleural effusion. Likely has exacerbation of CHF worsened by fluid overload due to CKD. Needs adequate dialysis fluid removal. Nephrology consulted. Will attempt diuresis with escalating doses of IV lasix tonight. Will continue comprehensive care for all of patients comorbid conditions including Eliquis for Afib. EKG shows a ventricular paced rhythm with a rate of 75, and no significant changes of ischemia; troponin is negative. Leukocytosis may be due to inhaled steroids, but since she has a catheter, we will do blood cultures, repeat WBC and get rectal temperature. 2. Hypoalbuminemia - Possibly due to combined effects of malnutrition and inflammation associated with comorbid chronic conditions. Will ensure adequate dietary protein intake and also consult shingles roofer helper. 3. ESRD - Will consult nephrology for hemodialysis with aggressive ultrafiltration to mobilize excess fluid. Avoid nephrotoxic agents such as NSAIDS, aminoglycosides, contrast dyes and certain Alternative medicine products. 4. Anemia - Likely mostly renal anemia. Will do basic anemia work up including serial stool guaiacs, reticulocyte count and iron studies. Would benefit from Procrit therapy once iron replete. 5. Obesity Counseled on the risks associated with obesity. Will provide patient all the necessary assistance, counseling and positive reinforcement to facilitate weight loss. Consult shingles roofer helper. 6. Hypertension - Restart suitable outpatient antihypertensive drugs when clinically appropriate. Revise regimen to ensure [id number] excellent BP control and family life counselor patient on the injurious effects of uncontrolled hypertension. Nonpharmacologic measures to control hypertension like weight loss , salt restriction and exercise discussed. Importance of adherence to treatment regimen and attainment of normotension emphasized. 7. DVT prophylaxis - On Eliquis for Afib 8. Advance directives - Full code
[2019-02-12] MEDS ORDERED: FUROSEMIDE 40 MG/4 ML INJECTABLE VIAL IVPB ONE (20:58)
[2019-02-12] MEDS ORDERED: HEPARIN NA (PORCINE) 5,000 UNITS/ML 1ML VIAL SQ ONE (22:08)
[2019-02-12] MEDS ORDERED: HEPARIN NA (PORCINE) 5,000 UNITS/ML 1ML VIAL ONE (22:36)
--- NOTE | 2019-02-13 01:04 | HP ---
CHIEF COMPLAINT: b/l leg pain PCP: Dr. Johnson HISTORY OF PRESENT ILLNESS: 88 y.o. F PMH chroni resp failure 2/2 COPD on 3L home O2, chronic diastolic HF, A-fib on eliquis has pacemaker, CAD, HTN, chronic LBBB, HLD, ESRD on hemodialysis Sat Sat, CVA presenting for b/l LE pain for the past 2-3 days. Pt has chronic LE edema which she says has been increasing over the past few days. The pain is sharp, constant, feels like pressure and does not radiate. Elevating legs alleviates the pain and edema slightly. Pt also having SOB slightly worse than her baseline which began 2-3 days ago. She has been taking all of her medications as prescribed. Patient was recently discharged from [facility] on 01/26/19 for a similar presentation. Patient missed her dialysis session today , was last dialyzed on Saturday. ER course was notable for: (1) Lasix 40mg IV (2) placed on NC 3L (3) Recent Travel: denies PAST MEDICAL HISTORY: as per HPI PAST SURGICAL HISTORY: pacemaker placement Social History: Smoking: former smoker Alcohol: denies Drugs: denies Allergies aspirin Allergy (Verified 12/24/18 09:29) HOME MEDICATIONS: Home Medications Medication Instructions Recorded Apixaban [Eliquis] 2.5 tab PO BID 05/22/17 Fluticasone/Salmeterol [Advair Hfa 12 gm IH DAILY 05/22/17 230-21 Mcg Inhaler] Omeprazole 40 mg PO DAILY 05/22/17 Simvastatin 40 mg PO DAILY 05/22/17 Tiotropium [place] [Spiriva] 2.5 mcg IH BID 05/22/17 Diltiazem Cd [Cardizem Cd -] 120 mg PO DAILY 30 Days #30 01/26/19 cap.cd.24h Furosemide [Lasix] 40 mg PO BID 30 Days #60 tablet 01/26/19 Metoprolol Succinate [Toprol Xl] 50 mg PO BID 30 Days #60 tab.er.24h 01/26/19 PHYSICAL EXAMINATION Vital Signs - 24 hr 02/12/19 02/12/19 02/12/19 13:05 15:00 15:19 Temperature 97.5 F L Pulse Rate 71 Pulse Rate [ 60 Left Radial] Respiratory 16 18 Rate Blood Pressure 103/56 L Blood Pressure 115/69 [Left Arm] O2 Sat by Pulse 100 100 99 Oximetry (%) 02/12/19 19:34 Temperature Pulse Rate Pulse Rate [ 68 Left Radial] Respiratory 18 Rate Blood Pressure Blood Pressure 107/58 L [Left Arm] O2 Sat by Pulse 100 Oximetry (%) GENERAL: Aox3 NAD. HEENT: NCAT. Sclera anicteric. No conjunctival pallor. PERRLA. MMM. LUNGS: Crackling heard b/l lower lungs. Some incr work of breathing. HEART: RRR. S1S2 heard no murmurs ABDOMEN: Soft, nontender, not distended, normoactive bowel sounds, no guarding UPPER EXTREMITIES: 2+ pulses, warm, well-perfused. + clubbing. LOWER EXTREMITIES: 2+ pulses. 2+ pitting edema b/l. Erythema noted b/l LE. Laboratory Results - last 24 hr 02/12/19 02/12/19 02/12/19 15:25 15:25 16:00 WBC 11.6 H RBC 3.63 Hgb 9.4 L Hct 31.0 L MCV 85.6 MCH 25.8 MCHC 30.1 L RDW 18.7 H Plt Count 274 D MPV 7.6 Absolute Neuts (auto) 8.9 H Neutrophils % 76.9 Neutrophils % (Manual) 72.9 Band Neutrophils % 0.0 Lymphocytes % 10.8 Lymphocytes % (Manual) 6.6 L Monocytes % 11.0 H Monocytes % (Manual) 8 D Eosinophils % 0.8 Eosinophils % (Manual) 0.0 Basophils % 0.5 Basophils % (Manual) 0.0 Myelocytes % (Man) 1 D Promyelocytes % (Man) 0 Blast Cells % (Manual) 0 Nucleated RBC % 0 Metamyelocytes 0 Hypochromia 2+ Platelet Estimate Normal Polychromasia 1+ Anisocytosis 1+ Schistocytes 1+ PT with INR Cancelled INR Cancelled Sodium 132 L Potassium 4.2 Chloride 99 Carbon Dioxide 23 Anion Gap 10 BUN 55.6 H Creatinine 4.2 H Est GFR (CKD-EPI)AfAm 10.42 Est GFR (CKD-EPI)NonAf 8.99 Random Glucose 105 Calcium 8.9 Total Bilirubin 0.6 AST 20 ALT 8 L Alkaline Phosphatase 136 H Creatine Kinase 27 Troponin I < 0.02 B-Natriuretic Peptide Total Protein 6.2 L Albumin 2.8 L Lipase 138 02/12/19 16:00 WBC RBC Hgb Hct MCV MCH MCHC RDW Plt Count MPV Absolute Neuts (auto) Neutrophils % Neutrophils % (Manual) Band Neutrophils % Lymphocytes % Lymphocytes % (Manual) Monocytes % Monocytes % (Manual) Eosinophils % Eosinophils % (Manual) Basophils % Basophils % (Manual) Myelocytes % (Man) Promyelocytes % (Man) Blast Cells % (Manual) Nucleated RBC % Metamyelocytes Hypochromia Platelet Estimate Polychromasia Anisocytosis Schistocytes PT with INR INR Sodium Potassium Chloride Carbon Dioxide Anion Gap BUN Creatinine Est GFR (CKD-EPI)AfAm Est GFR (CKD-EPI)NonAf Random Glucose Calcium Total Bilirubin AST ALT Alkaline Phosphatase Creatine Kinase Troponin I B-Natriuretic Peptide 6386.1 H Total Protein Albumin Lipase ASSESSMENT/PLAN: 88 y.o. F PMH chroni resp failure 2/2 COPD on 3L home O2, chronic diastolic HF, A-fib on eliquis has pacemaker, CAD, HTN, chronic LBBB, HLD, ESRD on hemodialysis Sat, CVA presenting for b/l LE pain. #Acute CHF exacerbation -CXR shows worsening pulm venous congestion/ interstitial infiltrates & L pl effusion incr from prior study. -Lasix 80mg IV given -EKG shows ventricular paced rhythm rate 75; neg trop -Monitor Is & Os -Daily weights -Nephro consulted (Dr. Barrios) -Monitor on telemetry #ESRD on HD -Schedule Sat-- miss dialysis today will dialyze tomorrow -Diuresis w/ Lasix IV -Nephro consulted-- will see pt, likely needs dialysis in AM d.t missed session today. -Avoid nephrotoic agents #COPD -C.w NC @ 3L home O2 -C/w spiriva, advair -Monitor vitals #A-fib -Has pacemaker -C/w eliquis #HTN -Metoprolol succ 50mg PO BID, diltiazem 120g PO daily -Monitor vitals #HLD -Simvastatin 40mg daily #Normocytic anemia -F/u iron studies -F/u AM CBC #FEN -No fluids -trend lytes -Na controlled/ renal diet #DVT PPX -on eliquis #Dispo Telemetry Visit type - Emergency Visit Emergency Visit: Yes ED Registration Date: 02/12/19 Care time: The patient presented to the Emergency Department on the above date and was hospitalized for further evaluation of their emergent condition. - New Patient This patient is new to me today: Yes Date on this admission: 02/13/19 - Critical Care Critical Care patient: No ATTENDING PHYSICIAN STATEMENT I saw and evaluated the patient. I reviewed the resident's note and discussed the case with the resident. I agree with the resident's findings and plan as documented. SUBJECTIVE: OBJECTIVE: ASSESSMENT AND PLAN:
[2019-02-13 01:17] LABS: HEMATOCRIT 30.1 % (32.4-45.2); HEMOGLOBIN 9.1 GM/dL (10.7-15.3); MCH 25.9 pg (25.7-33.7); MCHC 30.2 g/dl (32.0-36.0); MEAN CELL VOLUME 85.7 fl (80-96); MEAN PLT VOLUME 7.5 fl (7.5-11.1); PLATELET COUNT 312 K/MM3 (134-434); RBC 3.51 M/mm3 (3.60-5.2); RDW 18.8 % (11.6-15.6); WHITE BLOOD COUNT 11.2 K/mm3 (4.0-10.0)
[2019-02-13 07:03] LABS: BASO % 0.7 % (0-2.0); EOS % 0.4 % (0-4.5); HEMATOCRIT 30.4 % (32.4-45.2); HEMOGLOBIN 9.3 GM/dL (10.7-15.3); LYMPH % 10.8 % (8-40); MCH 26.4 pg (25.7-33.7); MCHC 30.7 g/dl (32.0-36.0); MEAN CELL VOLUME 85.8 fl (80-96); MEAN PLT VOLUME 7.4 fl (7.5-11.1); NEUT % 79.1 % (42.8-82.8); PLATELET COUNT 323 K/MM3 (134-434); RBC 3.54 M/mm3 (3.60-5.2); RDW 18.7 % (11.6-15.6); WHITE BLOOD COUNT 11.1 K/mm3 (4.0-10.0)
[2019-02-13 07:19] LABS: BILIRUBIN,TOTAL 0.8 mg/dL (0.2-1); CALCIUM 9.3 mg/dL (8.5-10.1); CREATININE 4.5 mg/dL (0.55-1.3); MAGNESIUM 2.4 mg/dL (1.8-2.4); POTASSIUM 4.1 mmol/L (3.5-5.1); TOT PROT 6.7 g/dl (6.4-8.2)
[2019-02-13] MEDS: LIPASE/PROTEASE/AMYLASE 36,000 UNIT CAPSULE PO SCH (08:50)
[2019-02-13] MEDS ORDERED: TIOTROPIUM BROMIDE 2.5 MCG IH SCH (10:00)
[2019-02-13] MEDS ORDERED: PATIENT'S OWN MEDICATION (NON-FORMULARY) (Omeprazole [Omeprazole] 40 MG) PO SCH (10:00)
[2019-02-13] MEDS ORDERED: APIXABAN 2.5 MG TABLET PO SCH (10:00)
[2019-02-13] MEDS ORDERED: PATIENT'S OWN MEDICATION (NON-FORMULARY) (Fluticasone/Salmeterol [Advair Hfa 230-21 Mcg In IH SCH (10:00)
[2019-02-13] MEDS ORDERED: PATIENT'S OWN MEDICATION (NON-FORMULARY) (Simvastatin [Simvastatin] 40 MG) PO SCH (10:00)
[2019-02-13] MEDS ORDERED: EPOETIN ALFA 2,000 UNIT/1 ML VIAL IVPUSH ONE (12:00)
[2019-02-13] MEDS ORDERED: ACETAMINOPHEN 325 MG TABLET (FP) PO ONE (12:00)
[2019-02-13] MEDS ORDERED: SODIUM CHLORIDE 250 ML IV PRN ×2 (12:00→15:49)
[2019-02-13] MEDS ORDERED: IRON SUCROSE INJECTION 100 MG in SODIUM CHLORIDE 95 ML IVPB ONE (12:00)
[2019-02-13] MEDS ORDERED: SENNOSIDES 8.6MG TABLET (FP) PO PRN (14:17)
[2019-02-13] MEDS ORDERED: DOCUSATE SODIUM 100 MG CAPSULE (FP) PO PRN (14:17)
--- NOTE | 2019-02-13 14:28 | EKG ---
Test Reason : Blood Pressure : / mmHG Vent. Rate : 070 BPM Atrial Rate : 079 BPM P-R Int : 000 ms QRS Dur : 134 ms QT Int : 462 ms P-R-T Axes : 000 -88 086 degrees QTc Int : 498 ms POOR DATA QUALITY, INTERPRETATION MAY BE ADVERSELY AFFECTED Ventricular-paced rhythm WITH OCCASIONAL AV dual-paced complexes Biventricular pacemaker detected ABNORMAL ECG WHEN COMPARED WITH ECG OF 14-JAN-2019 23:32, VENT. RATE HAS DECREASED BY 8 BPM Confirmed by CORNEL HOANG MD ([id number]) on 02/13/2019 2:27:43 PM Referred By: Confirmed By:CORNEL HOANG MD
--- NOTE | 2019-02-13 14:34 | EKG ---
Test Reason : Blood Pressure : / mmHG Vent. Rate : 075 BPM Atrial Rate : 040 BPM P-R Int : 000 ms QRS Dur : 146 ms QT Int : 454 ms P-R-T Axes : 000 269 087 degrees QTc Int : 506 ms Ventricular-paced rhythm WITH OCCASIONAL AV dual-paced complexes Biventricular pacemaker detected ABNORMAL ECG WHEN COMPARED WITH ECG OF 14-JAN-2019 23:32, ELECTRONIC VENTRICULAR PACEMAKER HAS REPLACED ATRIAL FIBRILLATION Confirmed by VIKTOR STATON, CORNEL ([id number]) on 02/13/2019 2:34:22 PM Referred By: Confirmed By:CORNEL HOANG MD
--- NOTE | 2019-02-13 15:23 | PN ---
Teaching Attending Note Name of Resident: Samantha Dash ATTENDING PHYSICIAN STATEMENT I saw and evaluated the patient. I reviewed the resident's note and discussed the case with the resident. I agree with the resident's findings and plan as documented with exceptions below. SUBJECTIVE: Patient seen and examined. still with dysnea, orthopnea, leg swelling. reports urinated 'a lot' since being in the ED. Denies any recent fevers, chills, or sick contacts or URI like illness. OBJECTIVE: Vital Signs Period Temp Pulse Resp BP Sys/Perez Pulse Ox Last 24 Hr 97.5 F-97.9 F 67-114 16-22 85-123/38-84 93-100 Intake & Output 02/10/19 02/11/19 02/12/19 02/13/19 23:59 23:59 23:59 23:59 Intake Total 25 200 Output Total 100 Balance -75 200 Weight 150 lb General: sitting in stretcher in Ed, some tachypnea, use of accessory muscles of respiration Neck: neck vein distension Chest: Bibiasilar till mid lung fine crackles, pos air entry, no wheezing Abdomen;Soft, distended, vague generalized tenderness, no voluntary or involuntary guarding or rigidity Extremities3+ pitting pedal edema, upto mid thigh Home Medications Medication Instructions Recorded Apixaban [Eliquis] 2.5 tab PO BID 05/22/17 Fluticasone/Salmeterol [Advair Hfa 12 gm IH DAILY 05/22/17 230-21 Mcg Inhaler] Omeprazole 40 mg PO DAILY 05/22/17 Simvastatin 40 mg PO DAILY 05/22/17 Tiotropium [place] [Spiriva] 2.5 mcg IH BID 05/22/17 Diltiazem Cd [Cardizem Cd -] 120 mg PO DAILY 30 Days #30 01/26/19 cap.cd.24h Furosemide [Lasix] 40 mg PO BID 30 Days #60 tablet 01/26/19 Metoprolol Succinate [Toprol Xl] 50 mg PO BID 30 Days #60 tab.er.24h 01/26/19 Active Medications Acetaminophen (Tylenol -) 650 mg PO Q6H PRN PRN Reason: Fever Or Pain Apixaban (Eliquis -) 2.5 mg PO BID KESHAWN Atorvastatin Calcium (Lipitor -) 20 mg PO HS KESHAWN Budesonide/Formoterol Fumarate (Symbicort 80/4.5mcg -) 2 puff IH BID [facility] Diltiazem HCl (Cardizem Cd -) 120 mg PO DAILY [facility] Docusate Sodium (Colace -) 100 mg PO Q12H PRN PRN Reason: CONSTIPATION Sodium Chloride (Normal Saline -) 250 mls @ 3,000 mls/hr IV PRN PRN PRN Reason: Hypotension during Dialysis Stop: 02/14/19 11:59 Metoprolol Succinate (Toprol Xl -) 50 mg PO BID [facility] Pancrelipase (Creon Dr 36,000 Units Capsule) 1 cap PO TIDCM KESHAWN Last Admin: 02/13/19 08:50 Dose: 1 cap Pantoprazole Sodium (Protonix -) 40 mg PO DAILY [facility] Polyethylene Glycol (Miralax (For Daily Use) -) 17 gm PO DAILY [facility] Senna (Senna -) 2 tab PO HS PRN PRN Reason: CONSTIPATION Tiotropium [place] (Spiriva Respimat) 2 puff IH DAILY [facility] Laboratory Results - last 24 hr 02/12/19 02/12/19 02/12/19 15:25 15:25 16:00 WBC 11.6 H RBC 3.63 Hgb 9.4 L Hct 31.0 L MCV 85.6 MCH 25.8 MCHC 30.1 L RDW 18.7 H Plt Count 274 D MPV 7.6 Absolute Neuts (auto) 8.9 H Neutrophils % 76.9 Neutrophils % (Manual) 72.9 Band Neutrophils % 0.0 Lymphocytes % 10.8 Lymphocytes % (Manual) 6.6 L Monocytes % 11.0 H Monocytes % (Manual) 8 D Eosinophils % 0.8 Eosinophils % (Manual) 0.0 Basophils % 0.5 Basophils % (Manual) 0.0 Myelocytes % (Man) 1 D Promyelocytes % (Man) 0 Blast Cells % (Manual) 0 Nucleated RBC % 0 Metamyelocytes 0 Hypochromia 2+ Platelet Estimate Normal Polychromasia 1+ Anisocytosis 1+ Schistocytes 1+ Retic Count PT with INR Cancelled INR Cancelled Sodium 132 L Potassium 4.2 Chloride 99 Carbon Dioxide 23 Anion Gap 10 BUN 55.6 H Creatinine 4.2 H Est GFR (CKD-EPI)AfAm 10.42 Est GFR (CKD-EPI)NonAf 8.99 Random Glucose 105 Calcium 8.9 Phosphorus Magnesium Iron TIBC Iron Saturation Unsaturated IBC Ferritin Total Bilirubin 0.6 AST 20 ALT 8 L Alkaline Phosphatase 136 H Creatine Kinase 27 Troponin I < 0.02 B-Natriuretic Peptide Total Protein 6.2 L Albumin 2.8 L Lipase 138 02/12/19 02/13/19 02/13/19 16:00 00:15 03:30 WBC 11.2 H RBC 3.51 L Hgb 9.1 L Hct 30.1 L MCV 85.7 MCH 25.9 MCHC 30.2 L RDW 18.8 H Plt Count 312 MPV 7.5 Absolute Neuts (auto) Neutrophils % Neutrophils % (Manual) Band Neutrophils % Lymphocytes % Lymphocytes % (Manual) Monocytes % Monocytes % (Manual) Eosinophils % Eosinophils % (Manual) Basophils % Basophils % (Manual) Myelocytes % (Man) Promyelocytes % (Man) Blast Cells % (Manual) Nucleated RBC % Metamyelocytes Hypochromia Platelet Estimate Polychromasia Anisocytosis Schistocytes Retic Count PT with INR INR Sodium Potassium Chloride Carbon Dioxide Anion Gap BUN Creatinine Est GFR (CKD-EPI)AfAm Est GFR (CKD-EPI)NonAf Random Glucose Calcium Phosphorus Magnesium Iron TIBC Iron Saturation Unsaturated IBC Ferritin Total Bilirubin AST ALT Alkaline Phosphatase Creatine Kinase Troponin I < 0.02 B-Natriuretic Peptide 6386.1 H Total Protein Albumin Lipase 02/13/19 02/13/19 02/13/19 05:35 05:35 05:35 WBC 11.1 H RBC 3.54 L Hgb 9.3 L Hct 30.4 L MCV 85.8 MCH 26.4 MCHC 30.7 L RDW 18.7 H Plt Count 323 MPV 7.4 L Absolute Neuts (auto) 8.8 H Neutrophils % 79.1 Neutrophils % (Manual) Band Neutrophils % Lymphocytes % 10.8 Lymphocytes % (Manual) Monocytes % 9.0 Monocytes % (Manual) Eosinophils % 0.4 Eosinophils % (Manual) Basophils % 0.7 Basophils % (Manual) Myelocytes % (Man) Promyelocytes % (Man) Blast Cells % (Manual) Nucleated RBC % 1 H Metamyelocytes Hypochromia Platelet Estimate Polychromasia Anisocytosis Schistocytes Retic Count 3.36 H PT with INR INR Sodium 134 L Potassium 4.1 Chloride 100 Carbon Dioxide 25 Anion Gap 9 BUN 57.0 H Creatinine 4.5 H Est GFR (CKD-EPI)AfAm 9.59 Est GFR (CKD-EPI)NonAf 8.27 Random Glucose 97 Calcium 9.3 Phosphorus 6.0 H Magnesium 2.4 Iron TIBC Iron Saturation Unsaturated IBC Ferritin Total Bilirubin 0.8 AST 18 ALT 9 L Alkaline Phosphatase 132 H Creatine Kinase Troponin I B-Natriuretic Peptide Total Protein 6.7 Albumin 3.0 L Lipase 02/13/19 05:35 WBC RBC Hgb Hct MCV MCH MCHC RDW Plt Count MPV Absolute Neuts (auto) Neutrophils % Neutrophils % (Manual) Band Neutrophils % Lymphocytes % Lymphocytes % (Manual) Monocytes % Monocytes % (Manual) Eosinophils % Eosinophils % (Manual) Basophils % Basophils % (Manual) Myelocytes % (Man) Promyelocytes % (Man) Blast Cells % (Manual) Nucleated RBC % Metamyelocytes Hypochromia Platelet Estimate Polychromasia Anisocytosis Schistocytes Retic Count PT with INR INR Sodium Potassium Chloride Carbon Dioxide Anion Gap BUN Creatinine Est GFR (CKD-EPI)AfAm Est GFR (CKD-EPI)NonAf Random Glucose Calcium Phosphorus Magnesium Iron 18 L TIBC 407 Iron Saturation 4 L Unsaturated IBC 389 H Ferritin 77.2 Total Bilirubin AST ALT Alkaline Phosphatase Creatine Kinase Troponin I B-Natriuretic Peptide Total Protein Albumin Lipase CXR results and image reviewed EKG V paced rhythm with occasional AV paced dual complexes ASSESSMENT AND PLAN: 88 yof with PMhx of ESRD, started on HD in 01/2019 (on TThSat), chronic hypoxic/ hypercapneic resp failure/COPD on 3L home O2, chronic diastolic HF, A-fib on eliquis has pacemaker, CAD, HTN, chronic LBBB, HLD, CVA admitted with progressive dyspnea. -Acute on chronic diastolic heart failure exacerbation, suspect from missing HD sessions +/- dietary/medication non compliance, r/o Afib with RVR -ESRD recent started on HD in 01/2019 (on TThSat) -Atrial fibrillation with RVR, from above vs underyling etiology for recurrent CHF. -Chronic hypoxic/hypercapneic respiratory failure -COPD on 3 L home oxygen -Afib on eliquis, s/p PPM -Iron deficiency anemia -CAD -HTN -HLD -CVA Plan: Anasarcic, for HD with fluid removal. lasix 80 mg IV In Ed, Follow up with renal for additional dosing. Diltiazem/Toprol XL as hemodynamics permit Telemetry. Nutrition consult to address CHF education/diet. Cont eliquis recent 2D echo noted. s/p IV iron, monitor h/h. Dispo pending improvement in volume status. Discussed with patient.
--- NOTE | 2019-02-13 15:49 | CONSULT ---
Consult Consult Specialty:: Nephrology Reason for Consultation:: ESRD - History of Present Illness Chief Complaint: lower ext pain History of Present Illness: Pt is an 88 year old female with pmhx of ESRD, COPD, asthma, CVA, a-fib, CAD, and HTN who presents to the ER with lower ext pain and edema. She was due for HD yesterday but missed her session. She is on chronic o2 at home. SHe does not feel that he breathing is worse. She was recently discharged from [facility]. SHe is on a TTS schedule. 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 No: Sleep Apnea Gastrointestinal: Yes: GERD Renal/: Yes: Renal Inusuff - Alcohol/Substance Use Hx Alcohol Use: No - Smoking History Smoking history: Unknown if ever smoked Have you smoked in the past 12 months: No Aproximately how many cigarettes per day: 0 If you are a former smoker, when did you quit?: 1994 Home Medications - Allergies Allergies/Adverse Reactions: Allergies Allergy/AdvReac Type Severity Reaction Status Date / Time aspirin Allergy Verified 12/24/18 09:29 - Home Medications Home Medications: Ambulatory Orders Apixaban [Eliquis] 2.5 tab PO BID 05/22/17 Fluticasone/Salmeterol [Advair Hfa 230-21 Mcg Inhaler] 12 gm IH DAILY 05/22/17 Omeprazole 40 mg PO DAILY 05/22/17 Simvastatin 40 mg PO DAILY 05/22/17 Tiotropium [place] [Spiriva] 2.5 mcg IH BID 05/22/17 Diltiazem Cd [Cardizem Cd -] 120 mg PO DAILY 30 Days #30 cap.cd.24h 01/26/19 Furosemide [Lasix] 40 mg PO BID 30 Days #60 tablet 01/26/19 Metoprolol Succinate [Toprol Xl] 50 mg PO BID 30 Days #60 tab.er.24h 01/26/19 Family Medical History Family History: Denies Review of Systems - Review of Systems Constitutional: reports: Malaise Eyes: reports: No Symptoms HENT: reports: No Symptoms Neck: reports: No Symptoms Cardiovascular: reports: Edema Respiratory: reports: SOB on Exertion Genitourinary: reports: No Symptoms Musculoskeletal: reports: Extremity Pain Integumentary: reports: No Symptoms Endocrine: reports: No Symptoms Psychiatric: reports: No Symptoms Physical Exam Vital Signs: Vital Signs Temperature 97.5 F L 02/13/19 10:30 Pulse Rate 112 H 02/13/19 14:09 Respiratory Rate 18 02/13/19 14:09 Blood Pressure 98/54 L 02/13/19 14:09 O2 Sat by Pulse Oximetry (%) 95 02/13/19 08:50 Constitutional: Yes: Calm Eyes: Yes: Conjunctiva Clear HENT: Yes: Atraumatic Neck: Yes: Supple Cardiovascular: Yes: S1, S2 Respiratory: Yes: On Nasal O2 Gastrointestinal: Yes: Normal Bowel Sounds, Soft Renal/: Yes: WNL Musculoskeletal: Yes: WNL Edema: Yes Edema: LLE: 2+, RLE: 2+ Neurological: Yes: Oriented Psychiatric: Yes: Oriented Labs: CBC, BMP 02/13/19 05:35 02/13/19 05:35 Laboratory Tests 02/13/19 02/13/19 05:35 05:35 Hgb 9.3 L Sodium 134 L Creatinine 4.5 H Imaging - Results Chest X-ray: Report Reviewed Problem List - Problems (1) ESRD (end stage renal disease) Code(s): N18.6 - END STAGE RENAL DISEASE Assessment/Plan Current Medications Generic Name Dose Route Start Last Admin Trade Name Freq PRN Reason Stop Dose Admin Acetaminophen 650 mg 02/13/19 13:53 Tylenol - PO Q6H PRN Fever Or Pain Apixaban 2.5 mg 02/13/19 10:00 Eliquis - PO BID KESHAWN Atorvastatin Calcium 20 mg 02/13/19 22:00 Lipitor - PO HS KESHAWN Budesonide/Formoterol Fumarate 2 puff 02/13/19 10:00 Symbicort 80/4.5mcg - IH BID KESHAWN Diltiazem HCl 120 mg 02/13/19 10:00 Cardizem Cd - PO DAILY KESHAWN Docusate Sodium 100 mg 02/13/19 22:00 Colace - PO BID KESHAWN Sodium Chloride 250 mls @ 3,000 mls/hr 02/13/19 12:00 Normal Saline - IV 02/14/19 11:59 PRN PRN Hypotension during Dialysis Metoprolol Succinate 50 mg 02/13/19 10:00 Toprol Xl - PO BID KESHAWN Pancrelipase 1 cap 02/13/19 08:00 02/13/19 08:[address] 36,000 Units Capsule PO 1 cap TIDCM KESHAWN Administration Pantoprazole Sodium 40 mg 02/13/19 10:00 Protonix - PO DAILY KESHAWN Polyethylene Glycol 17 gm 02/13/19 14:30 Miralax (For Daily Use) - PO DAILY KESHAWN Senna 2 tab 02/13/19 14:17 Senna - PO HS PRN CONSTIPATION Tiotropium [place] 2 puff 02/13/19 10:00 Spiriva Respimat IH DAILY KESHAWN Impression 1. ESRD 2. CHF 3. COPD 4. asthma 5. dyspnea 6. HTN 7. a-fib 8. CHF 9. CAD 10. fluid overload Plan - will arrange for HD today - HD again tomorrow - give lasix on Saturday - pt is on TTS schedule - HD set up at [facility] - renal [facility] [place]
--- NOTE | 2019-02-13 16:10 | PN ---
Physical Exam: SUBJECTIVE: Patient seen and examined. She reports shortness of breath, mild cough, and bilateral lower leg redness. She denies fever, chills, nausea, or vomiting. OBJECTIVE: Vital Signs Period Temp Pulse Resp BP Sys/Perez Pulse Ox Last 24 Hr 97.5 F-97.9 F 67-114 16-22 85-123/38-84 93-100 GENERAL: The patient is awake, alert, and fully oriented, in no acute distress. HEAD: Normal with no signs of trauma. Wears glasses. EYES: PERRL, extraocular movements intact ENT: Ears normal, nares patent, moist mucous membranes. NECK: Trachea midline, full range of motion LUNGS: Crackles at right base, no accessory muscle use. HEART: Regular rate and rhythm, no murmur ABDOMEN: Soft, diffusely tender, distended, normoactive bowel sounds EXTREMITIES: warm, well-perfused, bilateral erythema and +2 pitting edema below knees NEUROLOGICAL: Normal speech. Motor strength 5/5 in extremities PSYCH: Normal mood, normal affect. SKIN: Warm, dry, normal turgor, no rashes or lesions noted other than stated above Laboratory Results - last 24 hr 02/12/19 02/12/19 02/12/19 15:25 16:00 16:00 WBC RBC Hgb Hct MCV MCH MCHC RDW Plt Count MPV Absolute Neuts (auto) Neutrophils % Neutrophils % (Manual) 72.9 Band Neutrophils % 0.0 Lymphocytes % Lymphocytes % (Manual) 6.6 L Monocytes % Monocytes % (Manual) 8 D Eosinophils % Eosinophils % (Manual) 0.0 Basophils % Basophils % (Manual) 0.0 Myelocytes % (Man) 1 D Promyelocytes % (Man) 0 Blast Cells % (Manual) 0 Nucleated RBC % Metamyelocytes 0 Hypochromia 2+ Platelet Estimate Normal Polychromasia 1+ Anisocytosis 1+ Schistocytes 1+ Retic Count Sodium 132 L Potassium 4.2 Chloride 99 Carbon Dioxide 23 Anion Gap 10 BUN 55.6 H Creatinine 4.2 H Est GFR (CKD-EPI)AfAm 10.42 Est GFR (CKD-EPI)NonAf 8.99 Random Glucose 105 Calcium 8.9 Phosphorus Magnesium Iron TIBC Iron Saturation Unsaturated IBC Ferritin Total Bilirubin 0.6 AST 20 ALT 8 L Alkaline Phosphatase 136 H Creatine Kinase 27 Troponin I < 0.02 B-Natriuretic Peptide 6386.1 H Total Protein 6.2 L Albumin 2.8 L Lipase 138 02/13/19 02/13/19 02/13/19 00:15 03:30 05:35 WBC 11.2 H 11.1 H RBC 3.51 L 3.54 L Hgb 9.1 L 9.3 L Hct 30.1 L 30.4 L MCV 85.7 85.8 MCH 25.9 26.4 MCHC 30.2 L 30.7 L RDW 18.8 H 18.7 H Plt Count 312 323 MPV 7.5 7.4 L Absolute Neuts (auto) 8.8 H Neutrophils % 79.1 Neutrophils % (Manual) Band Neutrophils % Lymphocytes % 10.8 Lymphocytes % (Manual) Monocytes % 9.0 Monocytes % (Manual) Eosinophils % 0.4 Eosinophils % (Manual) Basophils % 0.7 Basophils % (Manual) Myelocytes % (Man) Promyelocytes % (Man) Blast Cells % (Manual) Nucleated RBC % 1 H Metamyelocytes Hypochromia Platelet Estimate Polychromasia Anisocytosis Schistocytes Retic Count Sodium Potassium Chloride Carbon Dioxide Anion Gap BUN Creatinine Est GFR (CKD-EPI)AfAm Est GFR (CKD-EPI)NonAf Random Glucose Calcium Phosphorus Magnesium Iron TIBC Iron Saturation Unsaturated IBC Ferritin Total Bilirubin AST ALT Alkaline Phosphatase Creatine Kinase Troponin I < 0.02 B-Natriuretic Peptide Total Protein Albumin Lipase 02/13/19 02/13/19 02/13/19 05:35 05:35 05:35 WBC RBC Hgb Hct MCV MCH MCHC RDW Plt Count MPV Absolute Neuts (auto) Neutrophils % Neutrophils % (Manual) Band Neutrophils % Lymphocytes % Lymphocytes % (Manual) Monocytes % Monocytes % (Manual) Eosinophils % Eosinophils % (Manual) Basophils % Basophils % (Manual) Myelocytes % (Man) Promyelocytes % (Man) Blast Cells % (Manual) Nucleated RBC % Metamyelocytes Hypochromia Platelet Estimate Polychromasia Anisocytosis Schistocytes Retic Count 3.36 H Sodium 134 L Potassium 4.1 Chloride 100 Carbon Dioxide 25 Anion Gap 9 BUN 57.0 H Creatinine 4.5 H Est GFR (CKD-EPI)AfAm 9.59 Est GFR (CKD-EPI)NonAf 8.27 Random Glucose 97 Calcium 9.3 Phosphorus 6.0 H Magnesium 2.4 Iron 18 L TIBC 407 Iron Saturation 4 L Unsaturated IBC 389 H Ferritin 77.2 Total Bilirubin 0.8 AST 18 ALT 9 L Alkaline Phosphatase 132 H Creatine Kinase Troponin I B-Natriuretic Peptide Total Protein 6.7 Albumin 3.0 L Lipase Active Medications Generic Name Dose Route Start Last Admin Trade Name Freq PRN Reason Stop Dose Admin Acetaminophen 650 mg 02/13/19 13:53 Tylenol - PO Q6H PRN Fever Or Pain Apixaban 2.5 mg 02/13/19 10:00 Eliquis - PO BID [facility] Atorvastatin Calcium 20 mg 02/13/19 22:00 Lipitor - PO HS [facility] Budesonide/Formoterol Fumarate 2 puff 02/13/19 10:00 Symbicort 80/4.5mcg - IH BID [facility] Diltiazem HCl 120 mg 02/13/19 10:00 Cardizem Cd - PO DAILY [facility] Docusate Sodium 100 mg 02/13/19 22:00 Colace - PO BID [facility] Epoetin Abdirashid 4,000 unit 02/14/19 15:49 Epogen - IVPUSH 02/14/19 15:50 ONCE ONE Sodium Chloride 250 mls @ 3,000 mls/hr 02/13/19 12:00 Normal Saline - IV 02/14/19 11:59 PRN PRN Hypotension during Dialysis Sodium Chloride 250 mls @ 3,000 mls/hr 02/13/19 15:49 Normal Saline - IV 02/14/19 15:50 PRN PRN Hypotension during Dialysis Iron Sucrose 100 mg/ Sodium 100 mls @ 200 mls/hr 02/14/19 15:49 Chloride IVPB 02/14/19 16:18 ONCE ONE Metoprolol Succinate 50 mg 02/13/19 10:00 Toprol Xl - PO BID [facility] Pancrelipase 1 cap 02/13/19 08:00 02/13/19 08:50 Creon 36,000 Units Capsule PO 1 cap TIDCM [facility] Administration Pantoprazole Sodium 40 mg 02/13/19 10:00 Protonix - PO DAILY [facility] Polyethylene Glycol 17 gm 02/13/19 14:30 Miralax (For Daily Use) - PO DAILY [facility] Senna 2 tab 02/13/19 14:17 Senna - PO HS PRN CONSTIPATION Tiotropium [place] 2 puff 02/13/19 10:00 Spiriva Respimat IH DAILY [facility] ASSESSMENT/PLAN: Ms. Owen is an 88 y/o female with diastolic CHF, recent onset ESRD on HD TTS, paroxysmal a-fib s/p PPM on Eliquis, COPD, CAD, HTN, HLD, and CVA who presents with bilateral lower extremity pain and shortness of breath. #acute on chronic diastolic CHF CXR shows worsening pulmonary venous congestion and interstitial infiltrates with left pleural effusion. Pt is short of breath at rest. Lasix given in ED. Unsure if pt is compliant with diet and medications. -dialyze today and tomorrow -Lasix in 2 days -I/Os -daily weights -tele #ESRD on HD T S Cr 4.5. -dialyze today and tomorrow -nephrology following #paroxysmal a-fib s/p PPM -Eliquis 2.5mg BID -metoprolol -diltiazem #COPD 3L O2 at home -Spiriva -Advair -Symbicort #HTN -metoprolol, diltiazem #HLD -simvastatin 20mg daily #iron deficiency anemia Hb 9.3. Low iron. Slightly lower than baseline. -follow pending studies -iron supplementation #constipation -miralax -senna -colace FEN PO fluids monitor labs sodium diet DVT Ppx Eliquis Dispo Tele Monitoring fluid status Visit type - Emergency Visit Emergency Visit: Yes ED Registration Date: 02/12/19 Care time: The patient presented to the Emergency Department on the above date and was hospitalized for further evaluation of their emergent condition. - New Patient This patient is new to me today: Yes Date on this admission: 02/13/19 - Critical Care Critical Care patient: No - Discharge Referral Referred to [facility] Med P.C.: No ATTENDING PHYSICIAN STATEMENT I saw and evaluated the patient. I reviewed the resident's note and discussed the case with the resident. I agree with the resident's findings and plan as documented. SUBJECTIVE: OBJECTIVE: ASSESSMENT AND PLAN:
[2019-02-13 17:20] VITALS: BMI 31.5
[2019-02-13] MEDS: APIXABAN 2.5 MG TABLET PO SCH (21:44)
[2019-02-13] MEDS: DOCUSATE SODIUM 100 MG CAPSULE (FP) PO SCH (21:44)
[2019-02-13] MEDS: POLYETHYLENE GLYCOL 3350 119 GM BTL PO SCH (21:45)
[2019-02-13] MEDS: ACETAMINOPHEN 325 MG TABLET (FP) PO PRN (21:46)
[2019-02-13] MEDS: ATORVASTATIN CA 20 MG TABLET (FP) PO SCH (21:46)
[2019-02-13] MEDS: BUDESONIDE/FORMETEROL FUMARATE 80/4.5 mcg INHALER IH SCH (23:30)
[2019-02-14] MEDS: LIPASE/PROTEASE/AMYLASE 36,000 UNIT CAPSULE PO SCH ×3 (08:00→18:05)
[2019-02-14 09:51] LABS: HEMATOCRIT 28.6 % (32.4-45.2); HEMOGLOBIN 8.8 GM/dL (10.7-15.3); MCH 26.1 pg (25.7-33.7); MCHC 30.7 g/dl (32.0-36.0); MEAN CELL VOLUME 85.1 fl (80-96); MEAN PLT VOLUME 7.2 fl (7.5-11.1); PLATELET COUNT 241 K/MM3 (134-434); RBC 3.36 M/mm3 (3.60-5.2); RDW 18.9 % (11.6-15.6)
[2019-02-14] MEDS: POLYETHYLENE GLYCOL 3350 119 GM BTL PO SCH (10:00)
[2019-02-14] MEDS: DOCUSATE SODIUM 100 MG CAPSULE (FP) PO SCH ×2 (10:00→22:21)
[2019-02-14 10:31] LABS: BLOOD UREA NITROGEN 32.8 mg/dL (7-18); CALCIUM 8.7 mg/dL (8.5-10.1); CREATININE 3.2 mg/dL (0.55-1.3); POTASSIUM 3.5 mmol/L (3.5-5.1)
[2019-02-14] MEDS: ACETAMINOPHEN 325 MG TABLET (FP) PO PRN (11:30)
[2019-02-14] MEDS ORDERED: PT OWN MED DRAWER 7, Y5N ONE (11:44)
[2019-02-14] MEDS: TIOTROPIUM BROMIDE 2.5 MCG (SPIRIVA) RESPIMAT INHALER IH SCH (11:59)
[2019-02-14] MEDS: BUDESONIDE/FORMETEROL FUMARATE 80/4.5 mcg INHALER IH SCH ×2 (11:59→22:34)
--- NOTE | 2019-02-14 13:01 | PN ---
Teaching Attending Note Name of Resident: Samantha Dsah ATTENDING PHYSICIAN STATEMENT I saw and evaluated the patient. I reviewed the resident's note and discussed the case with the resident. I agree with the resident's findings and plan as documented with exceptions below. SUBJECTIVE: Patient seen and examined. still with dyspnea, pain all over. OBJECTIVE: Vital Signs Period Temp Pulse Resp BP Sys/Perez Pulse Ox Last 24 Hr 97.3 F-98.1 F 67-112 18-20 85-107/38-75 94-96 Intake & Output 02/11/19 02/12/19 02/13/19 02/14/19 23:59 23:59 23:59 23:59 Intake Total 25 450 100 Output Total 100 Balance -75 450 100 Weight 150 lb 145 lb 12.8 oz 145 lb 9.6 oz General: sitting in bed, improved tachypnea Neck: neck vein distension Chest: fine bibasilar crackles Abdomen:soft, some improvement in distension, vague tenderness, all over , no voluntary or involuntary guarding or rigidity, Extremities:2-3+ pedal pitting edema, some maroon/pink discoloration symmetrical lower extremities with sharp demarcation below the knee, vague generalized tenderness on palpation, pos DP pulses Home Medications Medication Instructions Recorded RX: Apixaban [Eliquis] 2.5 tab PO BID 05/22/17 RX: Fluticasone/Salmeterol [Advair 12 gm IH DAILY 05/22/17 Hfa 230-21 Mcg Inhaler] RX: Omeprazole 40 mg PO DAILY 05/22/17 RX: Simvastatin 40 mg PO DAILY 05/22/17 RX: Tiotropium [place] [Spiriva] 2.5 mcg IH BID 05/22/17 Furosemide [Lasix] 40 mg PO BID 30 Days #60 tablet 01/26/19 RX: Diltiazem Cd [Cardizem Cd -] 120 mg PO DAILY 30 Days #30 01/26/19 cap.cd.24h RX: Metoprolol Succinate [Toprol 50 mg PO BID 30 Days #60 tab.er.24h 01/26/19 Xl] RX: Albuterol Sulfate Inhaler - 180 mcg IH Q4H PRN 02/14/19 [Ventolin HFA Inhaler -] Active Medications Acetaminophen (Tylenol -) 650 mg PO Q6H PRN PRN Reason: Fever Or Pain Last Admin: 02/14/19 11:30 Dose: 650 mg Apixaban (Eliquis -) 2.5 mg PO BID [facility] Last Admin: 02/13/19 21:44 Dose: 2.5 mg Atorvastatin Calcium (Lipitor -) 20 mg PO HS [facility] Last Admin: 02/13/19 21:46 Dose: 20 mg Budesonide/Formoterol Fumarate (Symbicort 80/4.5mcg -) 2 puff IH BID [facility] Last Admin: 02/14/19 11:59 Dose: 2 puff Diltiazem HCl (Cardizem Cd -) 120 mg PO DAILY [facility] Docusate Sodium (Colace -) 100 mg PO BID [facility] Last Admin: 02/13/19 21:44 Dose: 100 mg Epoetin Abdirashid (Epogen -) 4,000 unit IVPUSH ONCE ONE Stop: 02/14/19 15:50 Sodium Chloride (Normal Saline -) 250 mls @ 3,000 mls/hr IV PRN PRN PRN Reason: Hypotension during Dialysis Stop: 02/14/19 15:50 Iron Sucrose 100 mg/ Sodium (Chloride) 100 mls @ 200 mls/hr IVPB ONCE ONE Stop: 02/14/19 16:18 Metoprolol Succinate (Toprol Xl -) 50 mg PO BID [facility] Last Admin: 02/13/19 21:44 Dose: 50 mg Pancrelipase (Creon Dr 36,000 Units Capsule) 1 cap PO TIDCM [facility] Last Admin: 02/13/19 08:50 Dose: 1 cap Pantoprazole Sodium (Protonix -) 40 mg PO DAILY [facility] Polyethylene Glycol (Miralax (For Daily Use) -) 17 gm PO DAILY [facility] Last Admin: 02/13/19 21:45 Dose: 17 grams Senna (Senna -) 2 tab PO HS PRN PRN Reason: CONSTIPATION Tiotropium [place] (Spiriva Respimat) 2 puff IH DAILY [facility] Last Admin: 02/14/19 11:59 Dose: 2 puff Laboratory Results - last 24 hr 02/13/19 02/13/19 02/14/19 05:35 10:45 09:15 WBC RBC Hgb Hct MCV MCH MCHC RDW Plt Count MPV Sodium 136 Potassium 3.5 Chloride 99 Carbon Dioxide 28 Anion Gap 9 BUN 32.8 H Creatinine 3.2 H Est GFR (CKD-EPI)AfAm 14.48 Est GFR (CKD-EPI)NonAf 12.49 Random Glucose 197 H Calcium 8.7 Transferrin 327 Hep Bs Antigen Negative Hep C Ab Diagnostic 0.1 02/14/19 09:15 WBC 8.0 RBC 3.36 L Hgb 8.8 L Hct 28.6 L MCV 85.1 MCH 26.1 MCHC 30.7 L RDW 18.9 H Plt Count 241 D MPV 7.2 L Sodium Potassium Chloride Carbon Dioxide Anion Gap BUN Creatinine Est GFR (CKD-EPI)AfAm Est GFR (CKD-EPI)NonAf Random Glucose Calcium Transferrin Hep Bs Antigen Hep C Ab Diagnostic Microbiology 02/13/19 00:15 Blood - Peripheral Venous Blood Culture - Preliminary NO GROWTH OBTAINED AFTER 24 HOURS, INCUBATION TO CONTINUE FOR 4 DAYS. 02/13/19 00:15 Blood - Peripheral Venous Blood Culture - Preliminary NO GROWTH OBTAINED AFTER 24 HOURS, INCUBATION TO CONTINUE FOR 4 DAYS. ASSESSMENT AND PLAN: 88 yof with PMhx of CKD stage V, transiently on HD in , discharged on lasix, planned for outpatient HD at [facility], but missed her session, concern for lasix non compliance chronic hypoxic/hypercapneic resp failure/COPD on 3L home O2, chronic diastolic HF, A-fib on eliquis has pacemaker, CAD, HTN, chronic LBBB, HLD, CVA admitted with progressive dyspnea. -Acute on chronic diastolic heart failure exacerbation, suspect from missing HD session/dietary/medication non compliance, r/o Afib with RVR -CKD stage V, transiently on HD in , discharged on lasix, planned for outpatient HD at [facility], but missed her session -Atrial fibrillation with RVR, from above vs underyling etiology for recurrent CHF. -Chronic hypoxic/hypercapneic respiratory failure -COPD on 3 L home oxygen -Afib on eliquis, s/p PPM -Iron deficiency anemia -CAD -HTN -HLD -CVA Plan: Additional HD today with 1.5 kg fluid removal. Monitor hemodynamics and volume status. Additional lasix per renal. Anticipate needs correction HD. Will defer access arrangements to renal. HR improved. Diltiazem/Toprol XL as hemodynamics permit Nutrition consult to address CHF education/diet. LE skin changes seem more from long standing edema rather than cellulitis. Monitor clinically, address fluid removal and hold off on abx for now. Cont eliquis recent 2D echo noted. s/p IV iron, monitor h/h. Dispo pending improvement in volume status. Discussed with patient and nursing.
[2019-02-14] MEDS ORDERED: ALBUTEROL SO4 8 GM HFA INHALER IH PRN (13:14)
--- NOTE | 2019-02-14 13:55 | PN ---
Physical Exam: SUBJECTIVE: Patient seen and examined. She reports a little improvement in shortness of breath. She also has intermittent chest tightness. She reports mild tenderness in legs. She denies abdominal pain, nausea, or vomiting. OBJECTIVE: Vital Signs Period Temp Pulse Resp BP Sys/Perez Pulse Ox Last 24 Hr 97.3 F-98.1 F 69-112 18-20 85-107/44-75 94-96 GENERAL: The patient is awake, alert, and fully oriented, not in distress, receiving HD HEAD: Normal with no signs of trauma. EYES: PERRL, extraocular movements intact, wears glasses ENT: Ears normal, nares patent, moist mucous membranes. NECK: Trachea midline, full range of motion CHEST: ecchymosis center of chest with multiple healing stages, right side cath port LUNGS: left side rhonchi, no accessory muscle use HEART: Regular rate and rhythm, no murmur ABDOMEN: Soft, tender epigastric area, normoactive bowel sounds EXTREMITIES: bilateral lower extremity circumferential erythema with demarcation line just below knees, +2 pitting edema, tender to palpation NEUROLOGICAL: Normal speech, moves all limbs PSYCH: Normal mood, normal affect. SKIN: Warm, dry, normal turgor tele: few episodes of NSVT and a-fib Laboratory Results - last 24 hr 02/13/19 02/13/19 02/14/19 05:35 10:45 09:15 WBC RBC Hgb Hct MCV MCH MCHC RDW Plt Count MPV Sodium 136 Potassium 3.5 Chloride 99 Carbon Dioxide 28 Anion Gap 9 BUN 32.8 H Creatinine 3.2 H Est GFR (CKD-EPI)AfAm 14.48 Est GFR (CKD-EPI)NonAf 12.49 Random Glucose 197 H Calcium 8.7 Transferrin 327 Hep Bs Antigen Negative Hep C Ab Diagnostic 0.1 02/14/19 09:15 WBC 8.0 RBC 3.36 L Hgb 8.8 L Hct 28.6 L MCV 85.1 MCH 26.1 MCHC 30.7 L RDW 18.9 H Plt Count 241 D MPV 7.2 L Sodium Potassium Chloride Carbon Dioxide Anion Gap BUN Creatinine Est GFR (CKD-EPI)AfAm Est GFR (CKD-EPI)NonAf Random Glucose Calcium Transferrin Hep Bs Antigen Hep C Ab Diagnostic Active Medications Generic Name Dose Route Start Last Admin Trade Name Freq PRN Reason Stop Dose Admin Acetaminophen 650 mg 02/13/19 13:53 02/14/19 11:30 Tylenol - PO 650 mg Q6H PRN Administration Fever Or Pain Albuterol Sulfate 2 puff 02/14/19 13:14 Ventolin Hfa Inhaler - IH Q4H PRN SHORT OF BREATH/WHEEZING Albuterol/Ipratropium 1 amp 02/14/19 13:15 Duoneb - NEB Q4H [facility] Apixaban 2.5 mg 02/13/19 10:00 02/13/19 21:44 Eliquis - PO 2.5 mg BID [facility] Administration Atorvastatin Calcium 20 mg 02/13/19 22:00 02/13/19 21:46 Lipitor - PO 20 mg HS [facility] Administration Budesonide/Formoterol Fumarate 2 puff 02/13/19 10:00 02/14/19 11:59 Symbicort 80/4.5mcg - IH 2 puff BID [facility] Administration Diltiazem HCl 120 mg 02/13/19 10:00 Cardizem Cd - PO DAILY [facility] Docusate Sodium 100 mg 02/13/19 22:00 02/13/19 21:44 Colace - PO 100 mg BID [facility] Administration Epoetin Abdirashid 4,000 unit 02/14/19 15:49 Epogen - IVPUSH 02/14/19 15:50 ONCE ONE Sodium Chloride 250 mls @ 3,000 mls/hr 02/13/19 15:49 Normal Saline - IV 02/14/19 15:50 PRN PRN Hypotension during Dialysis Iron Sucrose 100 mg/ Sodium 100 mls @ 200 mls/hr 02/14/19 15:49 Chloride IVPB 02/14/19 16:18 ONCE ONE Metoprolol Succinate 50 mg 02/13/19 10:00 02/13/19 21:44 Toprol Xl - PO 50 mg BID [facility] Administration Pancrelipase 1 cap 02/13/19 08:00 02/13/19 08:[address] 36,000 Units Capsule PO 1 cap TIDCM [facility] Administration Pantoprazole Sodium 40 mg 02/13/19 10:00 Protonix - PO DAILY [facility] Polyethylene Glycol 17 gm 02/13/19 14:30 02/13/19 21:45 Miralax (For Daily Use) - PO 17 grams DAILY [facility] Administration Senna 2 tab 02/13/19 14:17 Senna - PO HS PRN CONSTIPATION Tiotropium [place] 2 puff 02/13/19 10:00 02/14/19 11:59 Spiriva Respimat IH 2 puff DAILY [facility] Administration ASSESSMENT/PLAN: Ms. Owen is an 88 y/o female with diastolic CHF, recent onset ESRD on HD TTS, paroxysmal a-fib s/p PPM on Eliquis, COPD, CAD, HTN, HLD, and CVA who presents with bilateral lower extremity pain and shortness of breath. She has had recent admission for CHF exacerbation. CXR showed congestion. She is being hemodialyzed. #acute on chronic diastolic CHF HD yesterday took off 2L. HD being done today. CXR shows worsening pulmonary venous congestion and interstitial infiltrates with left pleural effusion. Pt is short of breath at rest. Lasix given in ED. Unsure if pt is compliant with diet and medications. -dialyze today -Lasix in tomorrow -I/Os -daily weights -tele #ESRD on HD T Cr 4.5-->3.2. -dialyze today -nephrology following #bilateral lower extremity erythema Not present on prior admission. Tender to palpation. On AC. -doppler LE b/l #paroxysmal a-fib s/p PPM RRR on exam today -Eliquis 2.5mg BID -metoprolol -diltiazem #COPD 3L O2 at home -Spiriva -Advair -Symbicort #HTN -metoprolol, diltiazem #HLD -simvastatin 20mg daily #iron deficiency anemia Hb 8.8. Low iron, high unsaturated IBC. Slightly lower than baseline Hb. -Venofer x1 -monitor #constipation -miralax -senna -colace FEN PO fluids monitor labs sodium diet DVT Ppx Eliquis Dispo Tele Monitoring fluid status Visit type - Emergency Visit Emergency Visit: Yes ED Registration Date: 02/12/19 Care time: The patient presented to the Emergency Department on the above date and was hospitalized for further evaluation of their emergent condition. - New Patient This patient is new to me today: No - Critical Care Critical Care patient: No - Discharge Referral Referred to [facility] Med [facility].C.: No ATTENDING PHYSICIAN STATEMENT I saw and evaluated the patient. I reviewed the resident's note and discussed the case with the resident. I agree with the resident's findings and plan as documented. SUBJECTIVE: OBJECTIVE: ASSESSMENT AND PLAN:
[2019-02-14] MEDS: PANTOPRAZOLE 40 MG TABLET (FP) PO SCH (13:56)
[2019-02-14] MEDS: APIXABAN 2.5 MG TABLET PO SCH ×2 (13:56→22:22)
[2019-02-14] MEDS ORDERED: IRON SUCROSE INJECTION 100 MG in SODIUM CHLORIDE 95 ML IVPB ONE (15:49)
[2019-02-14] MEDS ORDERED: EPOETIN ALFA 2,000 UNIT/1 ML VIAL IVPUSH ONE (15:49)
[2019-02-14] MEDS: ALBUTEROL SO4 2.5/IPRATROPIUM 0.5 INH SOL 3 ML VIAL.NEB. NEB SCH ×2 (16:24→20:39)
--- NOTE | 2019-02-14 19:48 | PN ---
Progress Note (short form) - Note Progress Note: Problems 1. ESRD 2. CHF 3. COPD 4. asthma 5. dyspnea 6. HTN 7. a-fib 8. CHF 9. CAD 10. fluid overload Current Medications Acetaminophen (Tylenol -) 650 mg PO Q6H PRN PRN Reason: Fever Or Pain Last Admin: 02/14/19 11:30 Dose: 650 mg Albuterol Sulfate (Ventolin Hfa Inhaler -) 2 puff IH Q4H PRN PRN Reason: SHORT OF BREATH/WHEEZING Albuterol/Ipratropium (Duoneb -) 1 amp NEB RQ4H [facility] Last Admin: 02/14/19 16:24 Dose: 1 amp Apixaban (Eliquis -) 2.5 mg PO BID [facility] Last Admin: 02/14/19 13:56 Dose: 2.5 mg Atorvastatin Calcium (Lipitor -) 20 mg PO HS [facility] Last Admin: 02/13/19 21:46 Dose: 20 mg Budesonide/Formoterol Fumarate (Symbicort 80/4.5mcg -) 2 puff IH BID [facility] Last Admin: 02/14/19 11:59 Dose: 2 puff Diltiazem HCl (Cardizem Cd -) 120 mg PO DAILY [facility] Last Admin: 02/14/19 13:50 Dose: Not Given Docusate Sodium (Colace -) 100 mg PO BID [facility] Last Admin: 02/14/19 10:00 Dose: Not Given Epoetin Abdirashid (Epogen -) 4,000 unit IVPUSH ONCE ONE Stop: 02/14/19 15:50 Sodium Chloride (Normal Saline -) 250 mls @ 3,000 mls/hr IV PRN PRN PRN Reason: Hypotension during Dialysis Stop: 02/14/19 15:50 Iron Sucrose 100 mg/ Sodium (Chloride) 100 mls @ 200 mls/hr IVPB ONCE ONE Stop: 02/14/19 16:18 Metoprolol Succinate (Toprol Xl -) 50 mg PO BID [facility] Last Admin: 02/14/19 13:50 Dose: Not Given Pancrelipase (Creon Dr 36,000 Units Capsule) 1 cap PO TIDCM [facility] Last Admin: 02/14/19 18:05 Dose: 1 cap Pantoprazole Sodium (Protonix -) 40 mg PO DAILY [facility] Last Admin: 02/14/19 13:56 Dose: 40 mg Polyethylene Glycol (Miralax (For Daily Use) -) 17 gm PO DAILY [facility] Last Admin: 02/14/19 10:00 Dose: Not Given Senna (Senna -) 2 tab PO HS PRN PRN Reason: CONSTIPATION Tiotropium [place] (Spiriva Respimat) 2 puff IH DAILY [facility] Last Admin: 02/14/19 11:59 Dose: 2 puff Last Vital Signs Temp Pulse Resp BP Pulse Ox 97.9 F 97 H 20 89/58 L 96 02/14/19 17:00 02/14/19 17:00 02/14/19 17:00 02/14/19 17:00 02/14/19 09:00 CBC, BMP 02/14/19 09:15 02/14/19 09:15 seen during dialysis treatment uneventful
[2019-02-14] MEDS: ATORVASTATIN CA 20 MG TABLET (FP) PO SCH (22:22)
[2019-02-15] MEDS: ALBUTEROL SO4 2.5/IPRATROPIUM 0.5 INH SOL 3 ML VIAL.NEB. NEB SCH ×6 (00:10→21:00)
[2019-02-15] MEDS: ACETAMINOPHEN 325 MG TABLET (FP) PO PRN ×2 (01:26→22:33)
[2019-02-15 06:54] LABS: BASO % 0.6 % (0-2.0); EOS % 0.8 % (0-4.5); HEMATOCRIT 28.4 % (32.4-45.2); HEMOGLOBIN 8.7 GM/dL (10.7-15.3); LYMPH % 16.6 % (8-40); MCH 26.2 pg (25.7-33.7); MCHC 30.8 g/dl (32.0-36.0); MEAN CELL VOLUME 85.2 fl (80-96); MEAN PLT VOLUME 7.3 fl (7.5-11.1); MONO % 13.3 % (3.8-10.2); NEUT % 68.7 % (42.8-82.8); PLATELET COUNT 205 K/MM3 (134-434); RBC 3.33 M/mm3 (3.60-5.2); RDW 18.6 % (11.6-15.6)
[2019-02-15 07:29] LABS: BLOOD UREA NITROGEN 27.9 mg/dL (7-18); CALCIUM 8.8 mg/dL (8.5-10.1); CREATININE 2.6 mg/dL (0.55-1.3); POTASSIUM 3.4 mmol/L (3.5-5.1)
[2019-02-15] MEDS ORDERED: PT OWN MED DRAWER 7, Y5N ONE (07:54)
[2019-02-15] MEDS: LIPASE/PROTEASE/AMYLASE 36,000 UNIT CAPSULE PO SCH ×3 (07:57→17:22)
[2019-02-15] MEDS: APIXABAN 2.5 MG TABLET PO SCH ×2 (09:45→22:19)
[2019-02-15] MEDS: DOCUSATE SODIUM 100 MG CAPSULE (FP) PO SCH ×2 (09:45→22:19)
[2019-02-15] MEDS: BUDESONIDE/FORMETEROL FUMARATE 80/4.5 mcg INHALER IH SCH ×2 (09:45→22:20)
[2019-02-15] MEDS: PANTOPRAZOLE 40 MG TABLET (FP) PO SCH (09:45)
[2019-02-15] MEDS: TIOTROPIUM BROMIDE 2.5 MCG (SPIRIVA) RESPIMAT INHALER IH SCH (09:45)
[2019-02-15] MEDS: POLYETHYLENE GLYCOL 3350 119 GM BTL PO SCH (10:06)
--- NOTE | 2019-02-15 12:43 | PN ---
Physical Exam: SUBJECTIVE: Patient seen and examined, breathing improved, some leg pain, no fevers, chills noted. OBJECTIVE: Vital Signs Period Temp Pulse Resp BP Sys/Perez Pulse Ox Last 24 Hr 97.8 F-98.8 F 85-100 20-22 89-103/42-66 98-98 Intake & Output 02/12/19 02/13/19 02/14/19 02/15/19 23:59 23:59 23:59 23:59 Intake Total 25 450 810 10 Output Total 100 2300 Balance -75 450 -1490 10 Weight 150 lb 145 lb 12.8 oz 145 lb 9.6 oz 143 lb General: sitting in bed,markedly improved, no use of accessory muscles of breathing, able to talk in full sentences Neck: neck vein distension improved Chest: fine bibasilar crackles improved Abdomen:soft, some improvement in distension, vague tenderness, all over , no voluntary or involuntary guarding or rigidity, Extremities:2+ pedal pitting edema, some maroon/pink discoloration symmetrical lower extremities with sharp demarcation below the knee, vague generalized tenderness on palpation, pos DP pulses, improved swelling Laboratory Results - last 24 hr 02/15/19 02/15/19 06:00 06:00 WBC 8.0 RBC 3.33 L Hgb 8.7 L Hct 28.4 L MCV 85.2 MCH 26.2 MCHC 30.8 L RDW 18.6 H Plt Count 205 MPV 7.3 L Absolute Neuts (auto) 5.5 Neutrophils % 68.7 Lymphocytes % 16.6 D Monocytes % 13.3 H Eosinophils % 0.8 D Basophils % 0.6 Nucleated RBC % 0 Sodium 139 Potassium 3.4 L Chloride 100 Carbon Dioxide 30 Anion Gap 9 BUN 27.9 H Creatinine 2.6 H Est GFR (CKD-EPI)AfAm 18.61 Est GFR (CKD-EPI)NonAf 16.06 Random Glucose 94 Calcium 8.8 Active Medications Generic Name Dose Route Start Last Admin Trade Name Freq PRN Reason Stop Dose Admin Acetaminophen 650 mg 02/13/19 13:53 02/15/19 01:26 Tylenol - PO 650 mg Q6H PRN Administration Fever Or Pain Albuterol Sulfate 2 puff 02/14/19 13:14 Ventolin Hfa Inhaler - IH Q4H PRN SHORT OF BREATH/WHEEZING Albuterol/Ipratropium 1 amp 02/14/19 16:00 02/15/19 12:11 Duoneb - NEB 1 amp RQ4H KESHAWN Administration Apixaban 2.5 mg 02/13/19 10:00 02/15/19 09:45 Eliquis - PO 2.5 mg BID KESHAWN Administration Atorvastatin Calcium 20 mg 02/13/19 22:00 02/14/19 22:22 Lipitor - PO 20 mg HS KESHAWN Administration Budesonide/Formoterol Fumarate 2 puff 02/13/19 10:00 02/15/19 09:45 Symbicort 80/4.5mcg - IH 2 puff BID KESHAWN Administration Cephalexin HCl 250 mg 02/15/19 20:00 Keflex - PO 02/20/19 08:01 Q12H KESHAWN Diltiazem HCl 120 mg 02/13/19 10:00 02/15/19 09:44 Cardizem Cd - PO 120 mg DAILY KESHAWN Administration Docusate Sodium 100 mg 02/13/19 22:00 02/15/19 09:45 Colace - PO 100 mg BID KESHAWN Administration Epoetin Abdirashid 4,000 unit 02/14/19 15:49 Epogen - IVPUSH 02/14/19 15:50 ONCE ONE Sodium Chloride 250 mls @ 3,000 mls/hr 02/13/19 15:49 Normal Saline - IV 02/14/19 15:50 PRN PRN Hypotension during Dialysis Iron Sucrose 100 mg/ Sodium 100 mls @ 200 mls/hr 02/14/19 15:49 Chloride IVPB 02/14/19 16:18 ONCE ONE Metoprolol Succinate 50 mg 02/13/19 10:00 02/15/19 09:45 Toprol Xl - PO 50 mg BID KESHAWN Administration Pancrelipase 1 cap 02/13/19 08:00 02/15/19 11:[address] 36,000 Units Capsule PO 1 cap TIDCM KESHAWN Administration Pantoprazole Sodium 40 mg 02/13/19 10:00 02/15/19 09:45 Protonix - PO 40 mg DAILY KESHAWN Administration Polyethylene Glycol 17 gm 02/13/19 14:30 02/14/19 10:00 Miralax (For Daily Use) - PO Not Given DAILY KESHAWN Senna 2 tab 02/13/19 14:17 Senna - PO HS PRN CONSTIPATION Tiotropium [place] 2 puff 02/13/19 10:00 02/15/19 09:45 Spiriva Respimat IH 2 puff DAILY KESHAWN Administration Duplex LE neg for DVT ASSESSMENT/PLAN: 88 yof with PMhx of CKD stage V, transiently on HD in , discharged on lasix, planned for outpatient HD at [facility], but missed her session, concern for lasix non compliance chronic hypoxic/hypercapneic resp failure/COPD on 3L home O2, chronic diastolic HF, A-fib on eliquis has pacemaker, CAD, HTN, chronic LBBB, HLD, CVA admitted with progressive dyspnea. -Acute on chronic diastolic heart failure exacerbation, suspect from missing HD session/dietary/medication non compliance, r/o Afib with RVR -CKD stage V, transiently on HD in , discharged on lasix, planned for outpatient HD at [facility], but missed her session -Atrial fibrillation with RVR, from above vs underyling etiology for recurrent CHF. -Chronic hypoxic/hypercapneic respiratory failure -COPD on 3 L home oxygen -Afib on eliquis, s/p PPM -Iron deficiency anemia -CAD -HTN -HLD -CVA Plan: Volume status improved. Additional lasix per renal. Anticipate needs [facility]. Will defer access arrangements to renal. HR improved. Paced rhythm on tele, d/c telemetry. Diltiazem/Toprol XL as hemodynamics permit Nutrition consult to address CHF education/diet. LE duplex noted, Short course of keflex. patient advised leg elevation as able. Cont eliquis Recent 2D echo noted. s/p IV iron, monitor h/h. Dispo transfer to med surg Dispo planning in 24 hours if volume status continues to improve. Discussed with patient and nursing. Visit type - Emergency Visit Emergency Visit: Yes ED Registration Date: 02/12/19 Care time: The patient presented to the Emergency Department on the above date and was hospitalized for further evaluation of their emergent condition. - New Patient This patient is new to me today: No - Critical Care Critical Care patient: No - Discharge Referral Referred to [facility] No
--- NOTE | 2019-02-15 16:30 | PN ---
Progress Note (short form) - Note Progress Note: Problems 1. ESRD 2. CHF 3. COPD 4. asthma 5. dyspnea 6. HTN 7. a-fib 8. CHF 9. CAD 10. fluid overload 88 yof with PMhx of CKD stage V, transiently on HD in , discharged on lasix, planned for outpatient HD at [facility], but missed her session, concern for lasix non compliance chronic hypoxic/hypercapneic resp failure/COPD on 3L home O2, chronic diastolic HF, A-fib on eliquis has pacemaker, CAD, HTN, chronic LBBB, HLD, CVA admitted with progressive dyspnea. -Acute on chronic diastolic heart failure exacerbation, suspect from missing HD session/dietary/medication non compliance, r/o Afib with RVR -CKD stage V, transiently on HD in , discharged on lasix, planned for outpatient HD at [facility], but missed her session -Atrial fibrillation with RVR, from above vs underyling etiology for recurrent CHF. -Chronic hypoxic/hypercapneic respiratory failure -COPD on 3 L home oxygen -Afib on eliquis, s/p PPM -Iron deficiency anemia -CAD -HTN -HLD -CVA Current Medications Acetaminophen (Tylenol -) 650 mg PO Q6H PRN PRN Reason: Fever Or Pain Last Admin: 02/15/19 01:26 Dose: 650 mg Albuterol Sulfate (Ventolin Hfa Inhaler -) 2 puff IH Q4H PRN PRN Reason: SHORT OF BREATH/WHEEZING Albuterol/Ipratropium (Duoneb -) 1 amp NEB RQ4H [facility] Last Admin: 02/15/19 12:11 Dose: 1 amp Apixaban (Eliquis -) 2.5 mg PO BID [facility] Last Admin: 02/15/19 09:45 Dose: 2.5 mg Atorvastatin Calcium (Lipitor -) 20 mg PO HS [facility] Last Admin: 02/14/19 22:22 Dose: 20 mg Budesonide/Formoterol Fumarate (Symbicort 80/4.5mcg -) 2 puff IH BID [facility] Last Admin: 02/15/19 09:45 Dose: 2 puff Cephalexin HCl (Keflex -) 250 mg PO BID [facility] Stop: 02/20/19 10:01 Diltiazem HCl (Cardizem Cd -) 120 mg PO DAILY [facility] Last Admin: 02/15/19 09:44 Dose: 120 mg Docusate Sodium (Colace -) 100 mg PO BID [facility] Last Admin: 02/15/19 09:45 Dose: 100 mg Epoetin Abdirashid (Epogen -) 4,000 unit IVPUSH ONCE ONE Stop: 02/14/19 15:50 Sodium Chloride (Normal Saline -) 250 mls @ 3,000 mls/hr IV PRN PRN PRN Reason: Hypotension during Dialysis Stop: 02/14/19 15:50 Iron Sucrose 100 mg/ Sodium (Chloride) 100 mls @ 200 mls/hr IVPB ONCE ONE Stop: 02/14/19 16:18 Metoprolol Succinate (Toprol Xl -) 50 mg PO BID [facility] Last Admin: 02/15/19 09:45 Dose: 50 mg Pancrelipase (Creon Dr 36,000 Units Capsule) 1 cap PO TIDCM [facility] Last Admin: 02/15/19 11:33 Dose: 1 cap Pantoprazole Sodium (Protonix -) 40 mg PO DAILY [facility] Last Admin: 02/15/19 09:45 Dose: 40 mg Polyethylene Glycol (Miralax (For Daily Use) -) 17 gm PO DAILY [facility] Last Admin: 02/14/19 10:00 Dose: Not Given Senna (Senna -) 2 tab PO HS PRN PRN Reason: CONSTIPATION Tiotropium [place] (Spiriva Respimat) 2 puff IH DAILY [facility] Last Admin: 02/15/19 09:45 Dose: 2 puff Last Vital Signs Temp Pulse Resp BP Pulse Ox 97.8 F 94 H 20 100/61 98 02/15/19 10:00 02/15/19 10:00 02/15/19 10:00 02/15/19 10:00 02/15/19 09:00 alert in nad Lungs clear Heart reg Abd soft nontender Ext no edema CBC, BMP 02/15/19 06:00 02/15/19 06:00 IMP- ESRD ON HD COPD on 3L home O2, chronic diastolic HF, A-fib on eliquis has pacemaker, CAD, HTN, chronic LBBB, HLD, CVA S/P UNEVENTFUL HD YESTERDAY PLAN HD ON SATURDAY
[2019-02-15] MEDS ORDERED: ALBUTEROL SO4 8 GM HFA INHALER IH PRN (20:13)
[2019-02-15] MEDS ORDERED: SENNOSIDES 8.6MG TABLET (FP) PO PRN (20:13)
[2019-02-15] MEDS ORDERED: EPOETIN ALFA 2,000 UNIT/1 ML VIAL IVPUSH ONE (20:13)
--- NOTE | 2019-02-15 22:05 | EKG ---
Test Reason : Blood Pressure : / mmHG Vent. Rate : 080 BPM Atrial Rate : 045 BPM P-R Int : 000 ms QRS Dur : 150 ms QT Int : 452 ms P-R-T Axes : 000 -87 093 degrees QTc Int : 521 ms Ventricular-paced rhythm WITH OCCASIONAL AV dual-paced complexes AND WITH OCCASIONAL and consecutive PREMATURE VENTRICULAR COMPLEXES Biventricular pacemaker detected ABNORMAL ECG WHEN COMPARED WITH ECG OF 12-FEB-2019 23:31, PREMATURE VENTRICULAR COMPLEXES ARE NOW PRESENT VENT. RATE HAS INCREASED BY 10 BPM Confirmed by Alison Vega ([id number]) on 02/15/2019 10:04:41 PM Referred By: Confirmed By:Alison Vega
[2019-02-15] MEDS: CEPHALEXIN MONOHYDRATE 250 MG CAPSULE (FP) PO SCH (22:19)
[2019-02-15] MEDS: ATORVASTATIN CA 20 MG TABLET (FP) PO SCH (22:19)
[2019-02-16] MEDS: ALBUTEROL SO4 2.5/IPRATROPIUM 0.5 INH SOL 3 ML VIAL.NEB. NEB SCH ×6 (05:01→20:50)
[2019-02-16 08:41] LABS: EOS % 1.9 % (0-4.5); HEMATOCRIT 27.8 % (32.4-45.2); HEMOGLOBIN 8.6 GM/dL (10.7-15.3); LYMPH % 15.3 % (8-40); MCH 26.4 pg (25.7-33.7); MCHC 30.9 g/dl (32.0-36.0); MEAN CELL VOLUME 85.5 fl (80-96); MEAN PLT VOLUME 7.4 fl (7.5-11.1); MONO % 12.7 % (3.8-10.2); NEUT % 69.1 % (42.8-82.8); PLATELET COUNT 185 K/MM3 (134-434); RBC 3.25 M/mm3 (3.60-5.2); RDW 18.7 % (11.6-15.6); WHITE BLOOD COUNT 8.1 K/mm3 (4.0-10.0)
[2019-02-16] MEDS: LIPASE/PROTEASE/AMYLASE 36,000 UNIT CAPSULE PO SCH ×4 (08:44→17:30)
[2019-02-16] MEDS: TIOTROPIUM BROMIDE 2.5 MCG (SPIRIVA) RESPIMAT INHALER IH SCH ×2 (08:45→09:57)
[2019-02-16] MEDS: APIXABAN 2.5 MG TABLET PO SCH ×3 (08:45→22:04)
[2019-02-16] MEDS: BUDESONIDE/FORMETEROL FUMARATE 80/4.5 mcg INHALER IH SCH ×3 (08:45→22:09)
[2019-02-16] MEDS: PANTOPRAZOLE 40 MG TABLET (FP) PO SCH ×2 (08:45→09:38)
[2019-02-16 09:03] LABS: BLOOD UREA NITROGEN 38.9 mg/dL (7-18); CALCIUM 8.9 mg/dL (8.5-10.1); CREATININE 3.2 mg/dL (0.55-1.3); MAGNESIUM 2.1 mg/dL (1.8-2.4); PHOSPHOROUS 3.9 mg/dL (2.5-4.9); POTASSIUM 3.8 mmol/L (3.5-5.1)
[2019-02-16] MEDS ORDERED: PT OWN MED DRAWER 7, Y5N ONE ×2 (09:28→22:01)
[2019-02-16] MEDS: DOCUSATE SODIUM 100 MG CAPSULE (FP) PO SCH ×2 (09:38→22:03)
[2019-02-16] MEDS: CEPHALEXIN MONOHYDRATE 250 MG CAPSULE (FP) PO SCH ×2 (09:38→22:04)
[2019-02-16] MEDS: POLYETHYLENE GLYCOL 3350 119 GM BTL PO SCH (09:40)
[2019-02-16] MEDS: ACETAMINOPHEN 325 MG TABLET (FP) PO PRN ×2 (11:57→22:46)
--- NOTE | 2019-02-16 12:53 | PN ---
Teaching Attending Note Name of Resident: Samantha Dash ATTENDING PHYSICIAN STATEMENT I saw and evaluated the patient. I reviewed the resident's note and discussed the case with the resident. I agree with the resident's findings and plan as documented with exceptions below. SUBJECTIVE: Patient seen and examined. breathing improved, leg pain but better. OBJECTIVE: Vital Signs Period Temp Pulse Resp BP Sys/Perez Pulse Ox Last 24 Hr 96.8 F-98.6 F 58-96 18-20 95-109/50-64 98 Intake & Output 02/13/19 02/14/19 02/15/19 02/16/19 23:59 23:59 23:59 23:59 Intake Total 450 810 120 440 Output Total 2300 Balance 450 -1490 120 440 Weight 145 lb 12.8 oz 145 lb 9.6 oz 143 lb 144 lb 8 oz general: sitting in chair, breathing better neck: soft, supple, improved neck vein distension Abdomen:soft, improved distension, NT extremities: improved pedal pitting edema 2+, sharply demarcated erythema more uniform with peeling noted Home Medications Medication Instructions Recorded Apixaban [Eliquis] 2.5 tab PO BID 05/22/17 Fluticasone/Salmeterol [Advair Hfa 12 gm IH DAILY 05/22/17 230-21 Mcg Inhaler] Omeprazole 40 mg PO DAILY 05/22/17 Simvastatin 40 mg PO DAILY 05/22/17 Tiotropium [place] [Spiriva] 2.5 mcg IH BID 05/22/17 Diltiazem Cd [Cardizem Cd -] 120 mg PO DAILY 30 Days #30 01/26/19 cap.cd.24h Furosemide [Lasix] 40 mg PO BID 30 Days #60 tablet 01/26/19 Metoprolol Succinate [Toprol Xl] 50 mg PO BID 30 Days #60 tab.er.24h 01/26/19 Albuterol Sulfate Inhaler - 180 mcg IH Q4H PRN 02/14/19 [Ventolin HFA Inhaler -] Active Medications Acetaminophen (Tylenol -) 650 mg PO Q6H PRN PRN Reason: Fever Or Pain Last Admin: 02/16/19 11:57 Dose: 650 mg Albuterol Sulfate (Ventolin Hfa Inhaler -) 2 puff IH Q4H PRN PRN Reason: SHORT OF BREATH/WHEEZING Albuterol/Ipratropium (Duoneb -) 1 amp NEB RQ4H [facility] Last Admin: 02/16/19 11:47 Dose: 1 amp Apixaban (Eliquis -) 2.5 mg PO BID [facility] Last Admin: 02/16/19 09:38 Dose: 2.5 mg Atorvastatin Calcium (Lipitor -) 20 mg PO HS [facility] Last Admin: 02/15/19 22:19 Dose: 20 mg Budesonide/Formoterol Fumarate (Symbicort 80/4.5mcg -) 2 puff IH BID [facility] Last Admin: 02/15/19 22:20 Dose: 2 puff Cephalexin HCl (Keflex -) 250 mg PO BID [facility] Stop: 02/20/19 10:01 Last Admin: 02/16/19 09:38 Dose: 250 mg Diltiazem HCl (Cardizem Cd -) 120 mg PO DAILY [facility] Docusate Sodium (Colace -) 100 mg PO BID [facility] Last Admin: 02/16/19 09:38 Dose: 100 mg Epoetin Abdirashid (Epogen -) 4,000 unit IVPUSH ONCE ONE Stop: 02/15/19 20:14 Sodium Chloride (Normal Saline -) 250 mls @ 3,000 mls/hr IV PRN PRN PRN Reason: Hypotension during Dialysis Iron Sucrose 100 mg/ Sodium (Chloride) 100 mls @ 200 mls/hr IVPB ONCE ONE Stop: 02/15/19 20:42 Metoprolol Succinate (Toprol Xl -) 50 mg PO BID [facility] Last Admin: 02/15/19 22:19 Dose: 50 mg Pancrelipase (Creon Dr 36,000 Units Capsule) 1 cap PO TIDCM [facility] Last Admin: 02/16/19 11:57 Dose: 1 cap Pantoprazole Sodium (Protonix -) 40 mg PO DAILY [facility] Last Admin: 02/16/19 09:38 Dose: 40 mg Polyethylene Glycol (Miralax (For Daily Use) -) 17 gm PO DAILY [facility] Last Admin: 02/16/19 09:40 Dose: Not Given Senna (Senna -) 2 tab PO HS PRN PRN Reason: CONSTIPATION Tiotropium [place] (Spiriva Respimat) 2 puff IH DAILY [facility] Last Admin: 02/16/19 09:57 Dose: 2 puff Laboratory Results - last 24 hr 02/16/19 02/16/19 07:42 07:42 WBC 8.1 RBC 3.25 L Hgb 8.6 L Hct 27.8 L MCV 85.5 MCH 26.4 MCHC 30.9 L RDW 18.7 H Plt Count 185 MPV 7.4 L Absolute Neuts (auto) 5.6 Neutrophils % 69.1 Lymphocytes % 15.3 Monocytes % 12.7 H Eosinophils % 1.9 D Basophils % 1.0 Nucleated RBC % 0 Sodium 137 Potassium 3.8 Chloride 99 Carbon Dioxide 30 Anion Gap 8 BUN 38.9 H Creatinine 3.2 H Est GFR (CKD-EPI)AfAm 14.48 Est GFR (CKD-EPI)NonAf 12.49 Random Glucose 121 H Calcium 8.9 Phosphorus 3.9 Magnesium 2.1 Microbiology 02/13/19 00:15 Blood - Peripheral Venous Blood Culture - Preliminary NO GROWTH OBTAINED AFTER 72 HOURS, INCUBATION TO CONTINUE FOR 2 DAYS. 02/13/19 00:15 Blood - Peripheral Venous Blood Culture - Preliminary NO GROWTH OBTAINED AFTER 72 HOURS, INCUBATION TO CONTINUE FOR 2 DAYS. ASSESSMENT AND PLAN: 88 yof with PMhx of CKD stage V, transiently on HD in , discharged on lasix, planned for outpatient HD at [facility], but missed her session, concern for lasix non compliance chronic hypoxic/hypercapneic resp failure/COPD on 3L home O2, chronic diastolic HF, A-fib on eliquis has pacemaker, CAD, HTN, chronic LBBB, HLD, CVA admitted with progressive dyspnea. -Acute on chronic diastolic heart failure exacerbation, suspect from missing HD session/dietary/medication non compliance, r/o Afib with RVR -CKD stage V, transiently on HD in , discharged on lasix, planned for outpatient HD at [facility], but missed her session -Atrial fibrillation with RVR, from above vs underyling etiology for recurrent CHF. -Chronic hypoxic/hypercapneic respiratory failure -LE cellulitis vs contact dermatitis -COPD on 3 L home oxygen -Afib on eliquis, s/p PPM -Iron deficiency anemia -CAD -HTN -HLD -CVA Plan: Volume status improved. For HD tomorrow again. Additional lasix per renal. Anticipate needs intermediate HD. Will defer access arrangements to renal. Diltiazem/Toprol XL as hemodynamics permit Nutrition consult to address CHF education/diet. LE duplex noted, LE findings more suggestive of contact dermatitis, ?from recent trial with compression stockings. Short course of keflex, monitor for now. Cont eliquis Recent 2D echo noted. s/p IV iron, monitor h/h. Dispo pending improvement in volume status Discussed with patient and nursing.
[2019-02-16] MEDS ORDERED: FUROSEMIDE 40 MG/4 ML INJECTABLE VIAL IVPUSH ONE (14:17)
[2019-02-16] MEDS ORDERED: SODIUM CHLORIDE 250 ML IV PRN (14:49)
--- NOTE | 2019-02-16 14:49 | PN ---
Progress Note, Physician History of Present Illness: Pt seen and examined at bedside. She complains of lower ext edema. SHe is refusing to have an extra HD session today. - Current Medication List Current Medications: Active Medications Acetaminophen (Tylenol -) 650 mg PO Q6H PRN PRN Reason: Fever Or Pain Last Admin: 02/16/19 11:57 Dose: 650 mg Albuterol Sulfate (Ventolin Hfa Inhaler -) 2 puff IH Q4H PRN PRN Reason: SHORT OF BREATH/WHEEZING Albuterol/Ipratropium (Duoneb -) 1 amp NEB RQ4H [facility] Last Admin: 02/16/19 11:47 Dose: 1 amp Apixaban (Eliquis -) 2.5 mg PO BID [facility] Last Admin: 02/16/19 09:38 Dose: 2.5 mg Atorvastatin Calcium (Lipitor -) 20 mg PO HS [facility] Last Admin: 02/15/19 22:19 Dose: 20 mg Budesonide/Formoterol Fumarate (Symbicort 80/4.5mcg -) 2 puff IH BID [facility] Last Admin: 02/15/19 22:20 Dose: 2 puff Cephalexin HCl (Keflex -) 250 mg PO BID [facility] Stop: 02/20/19 10:01 Last Admin: 02/16/19 09:38 Dose: 250 mg Diltiazem HCl (Cardizem Cd -) 120 mg PO DAILY [facility] Docusate Sodium (Colace -) 100 mg PO BID [facility] Last Admin: 02/16/19 09:38 Dose: 100 mg Emollient Ointment (Aquaphor -) 1 applic TP BID [facility] Epoetin Abdirashid (Epogen -) 4,000 unit IVPUSH ONCE ONE Stop: 02/15/19 20:14 Furosemide (Lasix Injection -) 80 mg IVPUSH ONCE ONE Stop: 02/16/19 14:18 Sodium Chloride (Normal Saline -) 250 mls @ 3,000 mls/hr IV PRN PRN PRN Reason: Hypotension during Dialysis Iron Sucrose 100 mg/ Sodium (Chloride) 100 mls @ 200 mls/hr IVPB ONCE ONE Stop: 02/15/19 20:42 Metoprolol Succinate (Toprol Xl -) 50 mg PO BID [facility] Last Admin: 02/15/19 22:19 Dose: 50 mg Pancrelipase (Creon Dr 36,000 Units Capsule) 1 cap PO TIDCM [facility] Last Admin: 02/16/19 11:57 Dose: 1 cap Pantoprazole Sodium (Protonix -) 40 mg PO DAILY [facility] Last Admin: 02/16/19 09:38 Dose: 40 mg Polyethylene Glycol (Miralax (For Daily Use) -) 17 gm PO DAILY [facility] Last Admin: 02/16/19 09:40 Dose: Not Given Senna (Senna -) 2 tab PO HS PRN PRN Reason: CONSTIPATION Tiotropium [place] (Spiriva Respimat) 2 puff IH DAILY [facility] Last Admin: 02/16/19 09:57 Dose: 2 puff - Objective Vital Signs: Vital Signs Temperature 97.8 F 02/16/19 10:00 Pulse Rate 82 02/16/19 10:00 Respiratory Rate 19 02/16/19 10:00 Blood Pressure 96/60 02/16/19 10:00 O2 Sat by Pulse Oximetry (%) 98 02/16/19 10:00 Constitutional: Yes: Calm Eyes: Yes: Conjunctiva Clear HENT: Yes: Atraumatic Neck: Yes: Supple Cardiovascular: Yes: S1, S2 Respiratory: Yes: On Nasal O2 Gastrointestinal: Yes: Soft, Abdomen, Obese Genitourinary: Yes: WNL Extremities: Yes: WNL Edema: Yes Edema: LLE: 2+, RLE: 2+ Neurological: Yes: Oriented Psychiatric: Yes: Oriented Labs: CBC, BMP 02/16/19 07:42 02/16/19 07:42 INR, PTT INR Cancelled 02/12/19 15:25 Problem List - Problems (1) ESRD (end stage renal disease) Code(s): N18.6 - END STAGE RENAL DISEASE Assessment/Plan Current Medications Generic Name Dose Route Start Last Admin Trade Name Freq PRN Reason Stop Dose Admin Acetaminophen 650 mg 02/15/19 20:13 02/16/19 11:57 Tylenol - PO 650 mg Q6H PRN Administration Fever Or Pain Albuterol Sulfate 2 puff 02/15/19 20:13 Ventolin Hfa Inhaler - IH Q4H PRN SHORT OF BREATH/WHEEZING Albuterol/Ipratropium 1 amp 02/16/19 00:00 02/16/19 11:47 Duoneb - NEB 1 amp RQ4H KESHAWN Administration Apixaban 2.5 mg 02/15/19 22:00 02/16/19 09:38 Eliquis - PO 2.5 mg BID KESHAWN Administration Atorvastatin Calcium 20 mg 02/15/19 22:00 02/15/19 22:19 Lipitor - PO 20 mg HS KESHAWN Administration Budesonide/Formoterol Fumarate 2 puff 02/15/19 22:00 02/15/19 22:20 Symbicort 80/4.5mcg - IH 2 puff BID KESHAWN Administration Cephalexin HCl 250 mg 02/15/19 22:00 02/16/19 09:38 Keflex - PO 02/20/19 10:01 250 mg BID KESHAWN Administration Diltiazem HCl 120 mg 02/16/19 10:00 Cardizem Cd - PO DAILY KESHAWN Docusate Sodium 100 mg 02/15/19 22:00 02/16/19 09:38 Colace - PO 100 mg BID KESHAWN Administration Emollient Ointment 1 applic 02/16/19 22:00 Aquaphor - TP BID [facility]HAWN Epoetin Abdirashid 4,000 unit 02/15/19 20:13 Epogen - IVPUSH 02/15/19 20:14 ONCE ONE Furosemide 80 mg 02/16/19 14:17 Lasix Injection - IVPUSH 02/16/19 14:18 ONCE ONE Sodium Chloride 250 mls @ 3,000 mls/hr 02/15/19 20:13 Normal Saline - IV PRN PRN Hypotension during Dialysis Iron Sucrose 100 mg/ Sodium 100 mls @ 200 mls/hr 02/15/19 20:13 Chloride IVPB 02/15/19 20:42 ONCE ONE Metoprolol Succinate 50 mg 02/15/19 22:00 02/15/19 22:19 Toprol Xl - PO 50 mg BID KESHAWN Administration Pancrelipase 1 cap 02/16/19 08:00 02/16/19 11:[address] 36,000 Units Capsule PO 1 cap TIDCM KESHAWN Administration Pantoprazole Sodium 40 mg 02/16/19 10:00 02/16/19 09:38 Protonix - PO 40 mg DAILY KESHAWN Administration Polyethylene Glycol 17 gm 02/16/19 10:00 02/16/19 09:40 Miralax (For Daily Use) - PO Not Given DAILY KESHAWN Senna 2 tab 02/15/19 20:13 Senna - PO HS PRN CONSTIPATION Tiotropium [place] 2 puff 02/16/19 10:00 02/16/19 09:57 Spiriva Respimat IH 2 puff DAILY KESHAWN Administration Impression 1. ESRD 2. CHF 3. COPD 4. asthma 5. dyspnea 6. HTN 7. a-fib 8. fluid overload 9. CAD Plan - give lasix - HD tomorrow - pt refused DH today - pt is on TTS schedule - renal diet
--- NOTE | 2019-02-16 18:30 | PN ---
Physical Exam: SUBJECTIVE: Patient seen and examined. She reports epigastric pain. She reports improved shortness of breath. She denies chest pain, nausea, or vomiting. Lower extremities itch. OBJECTIVE: Vital Signs Period Temp Pulse Resp BP Sys/Perez Pulse Ox Last 24 Hr 96.8 F-98.8 F 82-96 18-20 95-109/50-68 98-98 GENERAL: The patient is awake, alert, and fully oriented, not in distress, receiving HD HEAD: Normal with no signs of trauma. EYES: PERRL, extraocular movements intact, wears glasses ENT: Ears normal, nares patent, moist mucous membranes. NECK: Trachea midline, full range of motion CHEST: ecchymosis center of chest with multiple healing stages, right side cath port LUNGS: left side rhonchi, no accessory muscle use HEART: Regular rate and rhythm, no murmur ABDOMEN: Soft, tender epigastric area, normoactive bowel sounds EXTREMITIES: bilateral lower extremity circumferential erythema with demarcation line just below knees, erythema is decreased, peeling skin, +1 pitting edema, tender to palpation NEUROLOGICAL: Normal speech, moves all limbs PSYCH: Normal mood, normal affect. SKIN: Warm, dry, normal turgor Laboratory Results - last 24 hr 02/16/19 02/16/19 07:42 07:42 WBC 8.1 RBC 3.25 L Hgb 8.6 L Hct 27.8 L MCV 85.5 MCH 26.4 MCHC 30.9 L RDW 18.7 H Plt Count 185 MPV 7.4 L Absolute Neuts (auto) 5.6 Neutrophils % 69.1 Lymphocytes % 15.3 Monocytes % 12.7 H Eosinophils % 1.9 D Basophils % 1.0 Nucleated RBC % 0 Sodium 137 Potassium 3.8 Chloride 99 Carbon Dioxide 30 Anion Gap 8 BUN 38.9 H Creatinine 3.2 H Est GFR (CKD-EPI)AfAm 14.48 Est GFR (CKD-EPI)NonAf 12.49 Random Glucose 121 H Calcium 8.9 Phosphorus 3.9 Magnesium 2.1 Active Medications Generic Name Dose Route Start Last Admin Trade Name Freq PRN Reason Stop Dose Admin Acetaminophen 650 mg 02/15/19 20:13 02/16/19 11:57 Tylenol - PO 650 mg Q6H PRN Administration Fever Or Pain Albuterol Sulfate 2 puff 02/15/19 20:13 Ventolin Hfa Inhaler - IH Q4H PRN SHORT OF BREATH/WHEEZING Albuterol/Ipratropium 1 amp 02/16/19 00:00 02/16/19 15:59 Duoneb - NEB 1 amp RQ4H KESHAWN Administration Apixaban 2.5 mg 02/15/19 22:00 02/16/19 09:38 Eliquis - PO 2.5 mg BID KESHAWN Administration Atorvastatin Calcium 20 mg 02/15/19 22:00 02/15/19 22:19 Lipitor - PO 20 mg HS KESHAWN Administration Budesonide/Formoterol Fumarate 2 puff 02/15/19 22:00 02/16/19 14:52 Symbicort 80/4.5mcg - IH 2 puff BID KESHAWN Administration Cephalexin HCl 250 mg 02/15/19 22:00 02/16/19 09:38 Keflex - PO 02/20/19 10:01 250 mg BID KESHAWN Administration Diltiazem HCl 120 mg 02/16/19 10:00 02/16/19 14:55 Cardizem Cd - PO Not Given DAILY [facility] Docusate Sodium 100 mg 02/15/19 22:00 02/16/19 09:38 Colace - PO 100 mg BID KESHAWN Administration Emollient Ointment 1 applic 02/16/19 22:00 Aquaphor - TP BID [facility] Epoetin Abdirashid 4,000 unit 02/15/19 20:13 Epogen - IVPUSH 02/15/19 20:14 ONCE ONE Epoetin Abdirashid 5,000 unit 02/17/19 14:49 Epogen - IVPUSH 02/17/19 14:50 ONCE ONE Sodium Chloride 250 mls @ 3,000 mls/hr 02/15/19 20:13 Normal Saline - IV PRN PRN Hypotension during Dialysis Iron Sucrose 100 mg/ Sodium 100 mls @ 200 mls/hr 02/15/19 20:13 Chloride IVPB 02/15/19 20:42 ONCE ONE Sodium Chloride 250 mls @ 3,000 mls/hr 02/16/19 14:49 Normal Saline - IV 02/17/19 14:49 PRN PRN Hypotension during Dialysis Metoprolol Succinate 50 mg 02/15/19 22:00 02/16/19 14:55 Toprol Xl - PO Not Given BID [facility] Pancrelipase 1 cap 02/16/19 08:00 02/16/19 17:30 Clair Mcgee 36,000 Units Capsule PO 1 cap TIDCM KESHAWN Administration Pantoprazole Sodium 40 mg 02/16/19 10:00 02/16/19 09:38 Protonix - PO 40 mg DAILY KESHAWN Administration Polyethylene Glycol 17 gm 02/16/19 10:00 02/16/19 09:40 Miralax (For Daily Use) - PO Not Given DAILY KESHAWN Senna 2 tab 02/15/19 20:13 Senna - PO HS PRN CONSTIPATION Tiotropium [place] 2 puff 02/16/19 10:00 02/16/19 09:57 Spiriva Respimat IH 2 puff DAILY KESHAWN Administration ASSESSMENT/PLAN: Ms. Owen is an 88 y/o female with diastolic CHF, recent onset ESRD on HD TTS, paroxysmal a-fib s/p PPM on Eliquis, COPD, CAD, HTN, HLD, and CVA who presents with bilateral lower extremity pain and shortness of breath. She has had recent admission for CHF exacerbation. CXR showed congestion. She is being hemodialyzed. #acute on chronic diastolic CHF HD yesterday took off 2L. HD being done today. CXR shows worsening pulmonary venous congestion and interstitial infiltrates with left pleural effusion. Pt is short of breath at rest. Lasix given in ED. Unsure if pt is compliant with diet and medications. -Lasix 80mg today -I/Os -daily weights -tele #ESRD on HD T Cr 3.2. -nephrology following #bilateral lower extremity erythema Doppler LE b/l negative for DVT. Not present on prior admission. Tender to palpation. On AC. #paroxysmal a-fib s/p PPM RRR on exam today -Eliquis 2.5mg BID -metoprolol -diltiazem #COPD 3L O2 at home -Spiriva -Advair -Symbicort #HTN -metoprolol, diltiazem #HLD -simvastatin 20mg daily #iron deficiency anemia Hb 8.6. Low iron, high unsaturated IBC. Slightly lower than baseline Hb. Venofer x1 -monitor #constipation -miralax -senna -colace FEN PO fluids monitor labs sodium diet DVT Ppx Eliquis Dispo med/surg Monitoring fluid status Visit type - Emergency Visit Emergency Visit: Yes ED Registration Date: 02/12/19 Care time: The patient presented to the Emergency Department on the above date and was hospitalized for further evaluation of their emergent condition. - New Patient This patient is new to me today: No - Critical Care Critical Care patient: No - Discharge Referral Referred to [facility] Med P.C.: No ATTENDING PHYSICIAN STATEMENT I saw and evaluated the patient. I reviewed the resident's note and discussed the case with the resident. I agree with the resident's findings and plan as documented. SUBJECTIVE: OBJECTIVE: ASSESSMENT AND PLAN:
[2019-02-16] MEDS: ATORVASTATIN CA 20 MG TABLET (FP) PO SCH (22:04)
[2019-02-16] MEDS: MINERAL OIL/PET HY-PHL TOPICAL OINTMENT 454 GM JAR TP SCH (22:12)
[2019-02-17] MEDS: ALBUTEROL SO4 2.5/IPRATROPIUM 0.5 INH SOL 3 ML VIAL.NEB. NEB SCH ×6 (00:39→20:24)
[2019-02-17] MEDS ORDERED: MINERAL OIL/PETROLAT/WATER TOPICAL CREAM 113 GM JAR TP PRN (07:12)
[2019-02-17] MEDS ORDERED: PT OWN MED DRAWER 7, Y5N ONE ×4 (07:52→21:38)
[2019-02-17] MEDS: LIPASE/PROTEASE/AMYLASE 36,000 UNIT CAPSULE PO SCH ×3 (07:54→17:27)
[2019-02-17] MEDS: ACETAMINOPHEN 325 MG TABLET (FP) PO PRN ×2 (08:05→16:40)
[2019-02-17 09:09] LABS: HEMATOCRIT 27.8 % (32.4-45.2); HEMOGLOBIN 8.4 GM/dL (10.7-15.3); MCH 26.4 pg (25.7-33.7); MCHC 30.3 g/dl (32.0-36.0); MEAN CELL VOLUME 87.2 fl (80-96); MEAN PLT VOLUME 7.7 fl (7.5-11.1); PLATELET COUNT 178 K/MM3 (134-434); RBC 3.19 M/mm3 (3.60-5.2); RDW 18.8 % (11.6-15.6); WHITE BLOOD COUNT 7.7 K/mm3 (4.0-10.0)
[2019-02-17] MEDS ORDERED: SODIUM CHLORIDE 250 ML IV PRN ×2 (09:29→13:58)
[2019-02-17 09:30] LABS: BLOOD UREA NITROGEN 48.4 mg/dL (7-18); CALCIUM 8.8 mg/dL (8.5-10.1); CREATININE 3.4 mg/dL (0.55-1.3)
[2019-02-17] MEDS ORDERED: EPOETIN ALFA 2,000 UNIT/1 ML VIAL IVPUSH ONE (09:30)
[2019-02-17] MEDS ORDERED: IRON SUCROSE INJECTION 100 MG in SODIUM CHLORIDE 95 ML IVPB ONE (09:30)
--- NOTE | 2019-02-17 11:05 | PN ---
Physical Exam: SUBJECTIVE: Patient seen and examined. She reports shortness of breath and lower leg swelling. Pt was on her way to dialysis after interview. OBJECTIVE: Vital Signs Period Temp Pulse Resp BP Sys/Perez Pulse Ox Last 24 Hr 97.3 F-98.8 F 88-111 18-20 100-130/51-79 100 GENERAL: The patient is awake, alert, and fully oriented, not in distress HEAD: Normal with no signs of trauma. EYES: PERRL, extraocular movements intact, wears glasses ENT: Ears normal, nares patent, moist mucous membranes. NECK: Trachea midline, full range of motion CHEST: right side cath port LUNGS: CTA, no accessory muscle use HEART: Regular rate and rhythm, no murmur ABDOMEN: Soft, tender epigastric area, normoactive bowel sounds EXTREMITIES: bilateral lower extremity circumferential erythema with demarcation line just below knees, erythema is continuing to decrease peeling skin, +1 pitting edema, tender to palpation NEUROLOGICAL: Normal speech, moves all limbs PSYCH: Normal mood, normal affect. SKIN: Warm, dry, normal turgor Laboratory Results - last 24 hr 02/17/19 02/17/19 08:40 08:40 WBC 7.7 RBC 3.19 L Hgb 8.4 L Hct 27.8 L MCV 87.2 MCH 26.4 MCHC 30.3 L RDW 18.8 H Plt Count 178 MPV 7.7 Sodium 134 L Potassium 4.0 Chloride 100 Carbon Dioxide 26 Anion Gap 8 BUN 48.4 H Creatinine 3.4 H Est GFR (CKD-EPI)AfAm 13.45 Est GFR (CKD-EPI)NonAf 11.61 Random Glucose 105 Calcium 8.8 Active Medications Generic Name Dose Route Start Last Admin Trade Name Freq PRN Reason Stop Dose Admin Acetaminophen 650 mg 02/15/19 20:13 02/17/19 08:05 Tylenol - PO 650 mg Q6H PRN Administration Fever Or Pain Albuterol Sulfate 2 puff 02/15/19 20:13 Ventolin Hfa Inhaler - IH Q4H PRN SHORT OF BREATH/WHEEZING Albuterol/Ipratropium 1 amp 02/16/19 00:00 02/17/19 08:25 Duoneb - NEB 1 amp RQ4H KESHAWN Administration Apixaban 2.5 mg 02/15/19 22:00 02/16/19 22:04 Eliquis - PO 2.5 mg BID KESHAWN Administration Atorvastatin Calcium 20 mg 02/15/19 22:00 02/16/19 22:04 Lipitor - PO 20 mg HS KESHAWN Administration Budesonide/Formoterol Fumarate 2 puff 02/15/19 22:00 02/16/19 22:09 Symbicort 80/4.5mcg - IH 2 puff BID KESHAWN Administration Cephalexin HCl 250 mg 02/15/19 22:00 02/16/19 22:04 Keflex - PO 02/20/19 10:01 250 mg BID KESHAWN Administration Diltiazem HCl 120 mg 02/16/19 10:00 02/16/19 14:55 Cardizem Cd - PO Not Given DAILY KESHAWN Docusate Sodium 100 mg 02/15/19 22:00 02/16/19 22:03 Colace - PO 100 mg BID KESHAWN Administration Emollient Ointment 1 applic 02/16/19 22:00 02/16/19 22:12 Aquaphor - TP 1 applic BID KESHAWN Administration Sodium Chloride 250 mls @ 3,000 mls/hr 02/17/19 09:29 Normal Saline - IV PRN PRN Hypotension during Dialysis Metoprolol Succinate 50 mg 02/15/19 22:00 02/16/19 22:04 Toprol Xl - PO 50 mg BID KESHAWN Administration Multi-Ingredient Lotion 1 applic 02/17/19 07:12 Eucerin (Small Jar) - TP DAILY PRN DRY SKIN Pancrelipase 1 cap 02/16/19 08:00 02/17/19 07:[address] 36,000 Units Capsule PO 1 cap TIDCM KESHAWN Administration Pantoprazole Sodium 40 mg 02/16/19 10:00 02/16/19 09:38 Protonix - PO 40 mg DAILY KESHAWN Administration Polyethylene Glycol 17 gm 02/16/19 10:00 02/16/19 09:40 Miralax (For Daily Use) - PO Not Given DAILY KESHAWN Senna 2 tab 02/15/19 20:13 Senna - PO HS PRN CONSTIPATION Tiotropium [place] 2 puff 02/16/19 10:00 02/16/19 09:57 Spiriva Respimat IH 2 puff DAILY KESHAWN Administration ASSESSMENT/PLAN: Ms. Owen is an 88 y/o female with diastolic CHF, recent onset ESRD on HD TTS, paroxysmal a-fib s/p PPM on Eliquis, COPD, CAD, HTN, HLD, and CVA who presents with bilateral lower extremity pain and shortness of breath. She has had recent admission for CHF exacerbation. CXR showed congestion. She is being hemodialyzed. #acute on chronic diastolic CHF HD took off 2.8kg today. CXR at admission shows worsening pulmonary venous congestion and interstitial infiltrates with left pleural effusion. Pt is short of breath at rest. Lasix given in ED. Pt is non-compliant with out pt HD. Lasix given yesterday. -I/Os -daily weights -tele #ESRD on HD T S Cr 3.4 pre and 1.2 post HD. -nephrology following #bilateral lower extremity erythema Doppler LE b/l negative for DVT. Not present on prior admission. Tender to palpation. On AC. Empirically tx for cellulitis. -Keflex day 3 #paroxysmal a-fib s/p PPM RRR on exam -Eliquis 2.5mg BID -metoprolol -diltiazem #COPD 3L O2 at home -Spiriva -Advair -Symbicort #HTN -metoprolol, diltiazem #HLD -simvastatin 20mg daily #iron deficiency anemia Hb 8.4. Low iron, high unsaturated IBC. Slightly lower than baseline Hb. Venofer x1. -monitor #constipation -miralax -senna -colace FEN PO fluids monitor labs sodium diet DVT Ppx Eliquis Dispo med/surg monitoring fluid status, possible d/c 24-48 hours Visit type - Emergency Visit Emergency Visit: Yes ED Registration Date: 02/12/19 Care time: The patient presented to the Emergency Department on the above date and was hospitalized for further evaluation of their emergent condition. - New Patient This patient is new to me today: No - Critical Care Critical Care patient: No - Discharge Referral Referred to [facility] Med P.C.: No ATTENDING PHYSICIAN STATEMENT I saw and evaluated the patient. I reviewed the resident's note and discussed the case with the resident. I agree with the resident's findings and plan as documented. SUBJECTIVE: OBJECTIVE: ASSESSMENT AND PLAN:
--- NOTE | 2019-02-17 12:23 | PN ---
Teaching Attending Note Name of Resident: Samantha Dash ATTENDING PHYSICIAN STATEMENT I saw and evaluated the patient. I reviewed the resident's note and discussed the case with the resident. I agree with the resident's findings and plan as documented with exceptions below. SUBJECTIVE: Patient seen and examined. getting HD, no complaints currently, Breathing better , reports gets dialysis only when she wants to and feels upto it. OBJECTIVE: Vital Signs Period Temp Pulse Resp BP Sys/Perez Pulse Ox Last 24 Hr 97.3 F-98.8 F 79-111 18-20 97-130/49-80 100 Intake & Output 02/14/19 02/15/19 02/16/19 02/17/19 23:59 23:59 23:59 23:59 Intake Total 100 724 6574 100 Output Total 2300 Balance -2949 830 6365 100 Weight 145 lb 9.6 oz 143 lb 144 lb 8 oz 147 lb 3.2 oz general: sitting in chair, breathing better neck: soft, supple, improved neck vein distension Abdomen:soft, improved distension, NT extremities: improved pedal pitting edema 2+, sharply demarcated erythema more uniform with peeling noted Home Medications Medication Instructions Recorded Apixaban [Eliquis] 2.5 tab PO BID 05/22/17 Fluticasone/Salmeterol [Advair Hfa 12 gm IH DAILY 05/22/17 230-21 Mcg Inhaler] Omeprazole 40 mg PO DAILY 05/22/17 Simvastatin 40 mg PO DAILY 05/22/17 Tiotropium [place] [Spiriva] 2.5 mcg IH BID 05/22/17 Diltiazem Cd [Cardizem Cd -] 120 mg PO DAILY 30 Days #30 01/26/19 cap.cd.24h Furosemide [Lasix] 40 mg PO BID 30 Days #60 tablet 01/26/19 Metoprolol Succinate [Toprol Xl] 50 mg PO BID 30 Days #60 tab.er.24h 01/26/19 Albuterol Sulfate Inhaler - 180 mcg IH Q4H PRN 02/14/19 [Ventolin HFA Inhaler -] Active Medications Acetaminophen (Tylenol -) 650 mg PO Q6H PRN PRN Reason: Fever Or Pain Last Admin: 02/17/19 08:05 Dose: 650 mg Albuterol Sulfate (Ventolin Hfa Inhaler -) 2 puff IH Q4H PRN PRN Reason: SHORT OF BREATH/WHEEZING Albuterol/Ipratropium (Duoneb -) 1 amp NEB RQ4H [facility] Last Admin: 02/17/19 12:23 Dose: 1 amp Apixaban (Eliquis -) 2.5 mg PO BID [facility] Last Admin: 02/16/19 22:04 Dose: 2.5 mg Atorvastatin Calcium (Lipitor -) 20 mg PO HS [facility] Last Admin: 02/16/19 22:04 Dose: 20 mg Budesonide/Formoterol Fumarate (Symbicort 80/4.5mcg -) 2 puff IH BID [facility] Last Admin: 02/16/19 22:09 Dose: 2 puff Cephalexin HCl (Keflex -) 250 mg PO BID [facility] Stop: 02/20/19 10:01 Last Admin: 02/16/19 22:04 Dose: 250 mg Diltiazem HCl (Cardizem Cd -) 120 mg PO DAILY [facility] Last Admin: 02/16/19 14:55 Dose: Not Given Docusate Sodium (Colace -) 100 mg PO BID [facility] Last Admin: 02/16/19 22:03 Dose: 100 mg Emollient Ointment (Aquaphor -) 1 applic TP BID [facility] Last Admin: 02/16/19 22:12 Dose: 1 applic Sodium Chloride (Normal Saline -) 250 mls @ 3,000 mls/hr IV PRN PRN PRN Reason: Hypotension during Dialysis Metoprolol Succinate (Toprol Xl -) 50 mg PO BID [facility] Last Admin: 02/16/19 22:04 Dose: 50 mg Multi-Ingredient Lotion (Eucerin (Small Jar) -) 1 applic TP DAILY PRN PRN Reason: DRY SKIN Pancrelipase (Creon Dr 36,000 Units Capsule) 1 cap PO TIDCM [facility] Last Admin: 02/17/19 07:54 Dose: 1 cap Pantoprazole Sodium (Protonix -) 40 mg PO DAILY [facility] Last Admin: 02/16/19 09:38 Dose: 40 mg Polyethylene Glycol (Miralax (For Daily Use) -) 17 gm PO DAILY [facility] Last Admin: 02/16/19 09:40 Dose: Not Given Senna (Senna -) 2 tab PO HS PRN PRN Reason: CONSTIPATION Tiotropium [place] (Spiriva Respimat) 2 puff IH DAILY [facility] Last Admin: 02/16/19 09:57 Dose: 2 puff Laboratory Results - last 24 hr 02/17/19 02/17/19 08:40 08:40 WBC 7.7 RBC 3.19 L Hgb 8.4 L Hct 27.8 L MCV 87.2 MCH 26.4 MCHC 30.3 L RDW 18.8 H Plt Count 178 MPV 7.7 Sodium 134 L Potassium 4.0 Chloride 100 Carbon Dioxide 26 Anion Gap 8 BUN 48.4 H Creatinine 3.4 H Est GFR (CKD-EPI)AfAm 13.45 Est GFR (CKD-EPI)NonAf 11.61 Random Glucose 105 Calcium 8.8 Microbiology 02/13/19 00:15 Blood - Peripheral Venous Blood Culture - Preliminary NO GROWTH OBTAINED AFTER 96 HOURS, INCUBATION TO CONTINUE FOR 1 DAYS. 02/13/19 00:15 Blood - Peripheral Venous Blood Culture - Preliminary NO GROWTH OBTAINED AFTER 96 HOURS, INCUBATION TO CONTINUE FOR 1 DAYS. ASSESSMENT AND PLAN: 88 yof with PMhx of CKD stage V, transiently on HD in , discharged on lasix, planned for outpatient HD at [facility], but missed her session, concern for lasix non compliance chronic hypoxic/hypercapneic resp failure/COPD on 3L home O2, chronic diastolic HF, A-fib on eliquis has pacemaker, CAD, HTN, chronic LBBB, HLD, CVA admitted with progressive dyspnea. -Acute on chronic diastolic heart failure exacerbation, suspect from missing HD session/dietary/medication non compliance, r/o Afib with RVR -CKD stage V, transiently on HD in , discharged on lasix, planned for outpatient HD at [facility], but missed her session -Atrial fibrillation with RVR, from above vs underyling etiology for recurrent CHF. -Chronic hypoxic/hypercapneic respiratory failure -LE cellulitis vs contact dermatitis -COPD on 3 L home oxygen -Afib on eliquis, s/p PPM -Iron deficiency anemia -CAD -HTN -HLD -CVA Plan: Volume status improved. Intermittently refusing HD in the hospital, Discussed with patient in detail, stressed importance of compliance with HD, diet and fluid restriction to avoid recurrent admissions. She relays understanding. Additional lasix per renal. Fluid restriction. Anticipate needs retirement HD. Will defer access arrangements to renal. discussed with Dr. Barrios, plan for repeat HD tomorrow and d/c with outpatient follow up if no concerns. Diltiazem/Toprol XL as hemodynamics permit Nutrition consult to address CHF education/diet. LE duplex noted, LE findings more suggestive of contact dermatitis, ?from recent trial with compression stockings. Short course of keflex, monitor for now. Cont eliquis Recent 2D echo noted. s/p IV iron, monitor h/h. Dispo dc in 24 hours with ongoing outpatient HD. Discussed with patient, nursing and nephrology.
[2019-02-17] MEDS: TIOTROPIUM BROMIDE 2.5 MCG (SPIRIVA) RESPIMAT INHALER IH SCH (12:34)
[2019-02-17] MEDS: BUDESONIDE/FORMETEROL FUMARATE 80/4.5 mcg INHALER IH SCH ×2 (12:35→22:21)
[2019-02-17] MEDS: DOCUSATE SODIUM 100 MG CAPSULE (FP) PO SCH ×2 (12:39→22:17)
[2019-02-17] MEDS: APIXABAN 2.5 MG TABLET PO SCH ×2 (12:39→22:16)
[2019-02-17] MEDS: PANTOPRAZOLE 40 MG TABLET (FP) PO SCH (12:40)
[2019-02-17] MEDS: POLYETHYLENE GLYCOL 3350 119 GM BTL PO SCH (12:44)
[2019-02-17] MEDS: CEPHALEXIN MONOHYDRATE 250 MG CAPSULE (FP) PO SCH ×2 (12:50→22:17)
[2019-02-17] MEDS: MINERAL OIL/PET HY-PHL TOPICAL OINTMENT 454 GM JAR TP SCH ×2 (12:55→22:21)
[2019-02-17 13:11] LABS: BLOOD UREA NITROGEN 11.6 mg/dL (7-18); CREATININE 1.2 mg/dL (0.55-1.3)
--- NOTE | 2019-02-17 13:58 | PN ---
Progress Note, Physician History of Present Illness: Pt seen and examined at bedside. She tolerated HD today. She complains of lower ext edema. - Current Medication List Current Medications: Active Medications Acetaminophen (Tylenol -) 650 mg PO Q6H PRN PRN Reason: Fever Or Pain Last Admin: 02/17/19 08:05 Dose: 650 mg Albuterol Sulfate (Ventolin Hfa Inhaler -) 2 puff IH Q4H PRN PRN Reason: SHORT OF BREATH/WHEEZING Albuterol/Ipratropium (Duoneb -) 1 amp NEB RQ4H [facility] Last Admin: 02/17/19 12:23 Dose: 1 amp Apixaban (Eliquis -) 2.5 mg PO BID [facility] Last Admin: 02/17/19 12:39 Dose: 2.5 mg Atorvastatin Calcium (Lipitor -) 20 mg PO HS [facility] Last Admin: 02/16/19 22:04 Dose: 20 mg Budesonide/Formoterol Fumarate (Symbicort 80/4.5mcg -) 2 puff IH BID [facility] Last Admin: 02/17/19 12:35 Dose: 2 puff Cephalexin HCl (Keflex -) 250 mg PO BID [facility] Stop: 02/20/19 10:01 Last Admin: 02/17/19 12:50 Dose: 250 mg Diltiazem HCl (Cardizem Cd -) 120 mg PO DAILY [facility] Last Admin: 02/17/19 12:39 Dose: 120 mg Docusate Sodium (Colace -) 100 mg PO BID [facility] Last Admin: 02/17/19 12:39 Dose: Not Given Emollient Ointment (Aquaphor -) 1 applic TP BID [facility] Last Admin: 02/17/19 12:55 Dose: 1 applic Sodium Chloride (Normal Saline -) 250 mls @ 3,000 mls/hr IV PRN PRN PRN Reason: Hypotension during Dialysis Metoprolol Succinate (Toprol Xl -) 50 mg PO BID [facility] Last Admin: 02/17/19 12:39 Dose: 50 mg Multi-Ingredient Lotion (Eucerin (Small Jar) -) 1 applic TP DAILY PRN PRN Reason: DRY SKIN Pancrelipase (Creon Dr 36,000 Units Capsule) 1 cap PO TIDCM [facility] Last Admin: 02/17/19 12:38 Dose: 1 cap Pantoprazole Sodium (Protonix -) 40 mg PO DAILY [facility] Last Admin: 02/17/19 12:40 Dose: 40 mg Polyethylene Glycol (Miralax (For Daily Use) -) 17 gm PO DAILY [facility] Last Admin: 02/17/19 12:44 Dose: Not Given Senna (Senna -) 2 tab PO HS PRN PRN Reason: CONSTIPATION Tiotropium [place] (Spiriva Respimat) 2 puff IH DAILY [facility] Last Admin: 02/17/19 12:34 Dose: 2 puff - Objective Vital Signs: Vital Signs Temperature 97.2 F L 02/17/19 12:30 Pulse Rate 118 H 02/17/19 12:30 Respiratory Rate 18 02/17/19 12:30 Blood Pressure 113/71 02/17/19 12:30 O2 Sat by Pulse Oximetry (%) 98 02/17/19 12:00 Constitutional: Yes: Calm Eyes: Yes: Conjunctiva Clear HENT: Yes: Atraumatic Neck: Yes: Supple Cardiovascular: Yes: S1, S2 Respiratory: Yes: On Nasal O2 Gastrointestinal: Yes: Normal Bowel Sounds, Soft, Abdomen, Obese Genitourinary: Yes: WNL Musculoskeletal: Yes: WNL Edema: Yes Edema: LLE: 2+, RLE: 2+ Integumentary: Yes: Erythema, Venous Stasis Changes Neurological: Yes: Oriented Psychiatric: Yes: Oriented Labs: CBC, BMP 02/17/19 08:40 02/17/19 12:10 INR, PTT INR Cancelled 02/12/19 15:25 Problem List - Problems (1) ESRD (end stage renal disease) Code(s): N18.6 - END STAGE RENAL DISEASE Assessment/Plan Current Medications Generic Name Dose Route Start Last Admin Trade Name Freq PRN Reason Stop Dose Admin Acetaminophen 650 mg 02/15/19 20:13 02/17/19 08:05 Tylenol - PO 650 mg Q6H PRN Administration Fever Or Pain Albuterol Sulfate 2 puff 02/15/19 20:13 Ventolin Hfa Inhaler - IH Q4H PRN SHORT OF BREATH/WHEEZING Albuterol/Ipratropium 1 amp 02/16/19 00:00 02/17/19 12:23 Duoneb - NEB 1 amp RQ4H KESHAWN Administration Apixaban 2.5 mg 02/15/19 22:00 02/17/19 12:39 Eliquis - PO 2.5 mg BID KESHAWN Administration Atorvastatin Calcium 20 mg 02/15/19 22:00 02/16/19 22:04 Lipitor - PO 20 mg HS KESHAWN Administration Budesonide/Formoterol Fumarate 2 puff 02/15/19 22:00 02/17/19 12:35 Symbicort 80/4.5mcg - IH 2 puff BID KESHAWN Administration Cephalexin HCl 250 mg 02/15/19 22:00 02/17/19 12:50 Keflex - PO 02/20/19 10:01 250 mg BID KESHAWN Administration Diltiazem HCl 120 mg 02/16/19 10:00 02/17/19 12:39 Cardizem Cd - PO 120 mg DAILY KESHAWN Administration Docusate Sodium 100 mg 02/15/19 22:00 02/17/19 12:39 Colace - PO Not Given BID KESHAWN Emollient Ointment 1 applic 02/16/19 22:00 02/17/19 12:55 Aquaphor - TP 1 applic BID KESHAWN Administration Sodium Chloride 250 mls @ 3,000 mls/hr 02/17/19 09:29 Normal Saline - IV PRN PRN Hypotension during Dialysis Metoprolol Succinate 50 mg 02/15/19 22:00 02/17/19 12:39 Toprol Xl - PO 50 mg BID KESHAWN Administration Multi-Ingredient Lotion 1 applic 02/17/19 07:12 Eucerin (Small Jar) - TP DAILY PRN DRY SKIN Pancrelipase 1 cap 02/16/19 08:00 02/17/19 12:[address] 36,000 Units Capsule PO 1 cap TIDCM KESHAWN Administration Pantoprazole Sodium 40 mg 02/16/19 10:00 02/17/19 12:40 Protonix - PO 40 mg DAILY KESHAWN Administration Polyethylene Glycol 17 gm 02/16/19 10:00 02/17/19 12:44 Miralax (For Daily Use) - PO Not Given DAILY KESHAWN Senna 2 tab 02/15/19 20:13 Senna - PO HS PRN CONSTIPATION Tiotropium [place] 2 puff 02/16/19 10:00 02/17/19 12:34 Spiriva Respimat IH 2 puff DAILY KESHAWN Administration Impression 1. ESRD 2. CHF 3. COPD 4. asthma 5. dyspnea 6. HTN 7. a-fib 8. fluid overload 9. CAD 10. cellulitis Plan - HD again tomorrow if she agrees for volume removal - elevate legs - abx for cellulitis - pt is on TTS schedule - renal diet
[2019-02-17] MEDS: ATORVASTATIN CA 20 MG TABLET (FP) PO SCH (22:17)
[2019-02-18] MEDS: ALBUTEROL SO4 2.5/IPRATROPIUM 0.5 INH SOL 3 ML VIAL.NEB. NEB SCH ×5 (00:12→17:28)
[2019-02-18] MEDS: ACETAMINOPHEN 325 MG TABLET (FP) PO PRN ×2 (01:21→08:08)
[2019-02-18] MEDS ORDERED: PT OWN MED DRAWER 7, Y5N ONE ×2 (08:04→12:23)
[2019-02-18] MEDS: LIPASE/PROTEASE/AMYLASE 36,000 UNIT CAPSULE PO SCH ×3 (08:13→17:40)
[2019-02-18 08:29] LABS: BLOOD UREA NITROGEN 28.2 mg/dL (7-18); CALCIUM 9.4 mg/dL (8.5-10.1); CREATININE 2.6 mg/dL (0.55-1.3); POTASSIUM 4.2 mmol/L (3.5-5.1)
[2019-02-18] MEDS: DOCUSATE SODIUM 100 MG CAPSULE (FP) PO SCH ×2 (10:27→12:25)
[2019-02-18] MEDS: APIXABAN 2.5 MG TABLET PO SCH ×2 (10:27→12:25)
[2019-02-18] MEDS: PANTOPRAZOLE 40 MG TABLET (FP) PO SCH ×2 (10:28→12:25)
[2019-02-18] MEDS: BUDESONIDE/FORMETEROL FUMARATE 80/4.5 mcg INHALER IH SCH ×2 (10:28→12:29)
[2019-02-18] MEDS: CEPHALEXIN MONOHYDRATE 250 MG CAPSULE (FP) PO SCH ×2 (10:28→12:31)
[2019-02-18] MEDS: TIOTROPIUM BROMIDE 2.5 MCG (SPIRIVA) RESPIMAT INHALER IH SCH ×2 (10:28→12:30)
[2019-02-18] MEDS: POLYETHYLENE GLYCOL 3350 119 GM BTL PO SCH ×2 (10:28→12:27)
[2019-02-18] MEDS: MINERAL OIL/PET HY-PHL TOPICAL OINTMENT 454 GM JAR TP SCH (10:30)
--- NOTE | 2019-02-18 13:06 | PN ---
Progress Note, Physician History of Present Illness: Pt seen and examined at bedside. She tolerated HD this morning. - Current Medication List Current Medications: Active Medications Acetaminophen (Tylenol -) 650 mg PO Q6H PRN PRN Reason: Fever Or Pain Last Admin: 02/18/19 08:08 Dose: 650 mg Albuterol Sulfate (Ventolin Hfa Inhaler -) 2 puff IH Q4H PRN PRN Reason: SHORT OF BREATH/WHEEZING Albuterol/Ipratropium (Duoneb -) 1 amp NEB RQ4H [facility] Last Admin: 02/18/19 08:42 Dose: Not Given Apixaban (Eliquis -) 2.5 mg PO BID [facility] Last Admin: 02/18/19 12:25 Dose: 2.5 mg Atorvastatin Calcium (Lipitor -) 20 mg PO HS [facility] Last Admin: 02/17/19 22:17 Dose: 20 mg Budesonide/Formoterol Fumarate (Symbicort 80/4.5mcg -) 2 puff IH BID [facility] Last Admin: 02/18/19 12:29 Dose: 2 puff Cephalexin HCl (Keflex -) 250 mg PO BID [facility] Stop: 02/20/19 10:01 Last Admin: 02/18/19 12:31 Dose: 250 mg Diltiazem HCl (Cardizem Cd -) 120 mg PO DAILY [facility] Last Admin: 02/18/19 10:27 Dose: Not Given Docusate Sodium (Colace -) 100 mg PO BID [facility] Last Admin: 02/18/19 12:25 Dose: 100 mg Emollient Ointment (Aquaphor -) 1 applic TP BID [facility] Last Admin: 02/18/19 10:30 Dose: Not Given Sodium Chloride (Normal Saline -) 250 mls @ 3,000 mls/hr IV PRN PRN PRN Reason: Hypotension during Dialysis Sodium Chloride (Normal Saline -) 250 mls @ 3,000 mls/hr IV PRN PRN PRN Reason: Hypotension during Dialysis Stop: 02/18/19 13:58 Metoprolol Succinate (Toprol Xl -) 50 mg PO BID [facility] Last Admin: 02/18/19 10:29 Dose: Not Given Multi-Ingredient Lotion (Eucerin (Small Jar) -) 1 applic TP DAILY PRN PRN Reason: DRY SKIN Pancrelipase (Creon Dr 36,000 Units Capsule) 1 cap PO TIDCM [facility] Last Admin: 02/18/19 12:26 Dose: 1 cap Pantoprazole Sodium (Protonix -) 40 mg PO DAILY [facility] Last Admin: 02/18/19 12:25 Dose: 40 mg Polyethylene Glycol (Miralax (For Daily Use) -) 17 gm PO DAILY [facility] Last Admin: 02/18/19 12:27 Dose: 17 grams Senna (Senna -) 2 tab PO HS PRN PRN Reason: CONSTIPATION Tiotropium [place] (Spiriva Respimat) 2 puff IH DAILY [facility] Last Admin: 02/18/19 12:30 Dose: 2 puff - Objective Vital Signs: Vital Signs Temperature 97.4 F L 02/18/19 12:39 Pulse Rate 98 H 02/18/19 12:39 Respiratory Rate 20 02/18/19 12:39 Blood Pressure 135/71 02/18/19 12:39 O2 Sat by Pulse Oximetry (%) 97 02/18/19 12:39 Constitutional: Yes: Calm Eyes: Yes: Conjunctiva Clear HENT: Yes: Atraumatic Cardiovascular: Yes: S1, S2 Respiratory: Yes: On Nasal O2 Gastrointestinal: Yes: Soft Genitourinary: Yes: WNL Musculoskeletal: Yes: WNL Edema: Yes Edema: LLE: 2+, RLE: 2+ Neurological: Yes: Oriented Psychiatric: Yes: Oriented Labs: CBC, BMP 02/17/19 08:40 02/18/19 07:35 INR, PTT INR Cancelled 02/12/19 15:25 Problem List - Problems (1) ESRD (end stage renal disease) Code(s): N18.6 - END STAGE RENAL DISEASE Assessment/Plan Current Medications Generic Name Dose Route Start Last Admin Trade Name Freq PRN Reason Stop Dose Admin Acetaminophen 650 mg 02/15/19 20:13 02/18/19 08:08 Tylenol - PO 650 mg Q6H PRN Administration Fever Or Pain Albuterol Sulfate 2 puff 02/15/19 20:13 Ventolin Hfa Inhaler - IH Q4H PRN SHORT OF BREATH/WHEEZING Albuterol/Ipratropium 1 amp 02/16/19 00:00 02/18/19 08:42 Duoneb - NEB Not Given RQ4H [facility] Apixaban 2.5 mg 02/15/19 22:00 02/18/19 12:25 Eliquis - PO 2.5 mg BID [facility] Administration Atorvastatin Calcium 20 mg 02/15/19 22:00 02/17/19 22:17 Lipitor - PO 20 mg HS [facility] Administration Budesonide/Formoterol Fumarate 2 puff 02/15/19 22:00 02/18/19 12:29 Symbicort 80/4.5mcg - IH 2 puff BID [facility] Administration Cephalexin HCl 250 mg 02/15/19 22:00 02/18/19 12:31 Keflex - PO 02/20/19 10:01 250 mg BID [facility] Administration Diltiazem HCl 120 mg 02/16/19 10:00 02/18/19 10:27 Cardizem Cd - PO Not Given DAILY [facility] Docusate Sodium 100 mg 02/15/19 22:00 02/18/19 12:25 Colace - PO 100 mg BID [facility] Administration Emollient Ointment 1 applic 02/16/19 22:00 02/18/19 10:30 Aquaphor - TP Not Given BID [facility] Sodium Chloride 250 mls @ 3,000 mls/hr 02/17/19 09:29 Normal Saline - IV PRN PRN Hypotension during Dialysis Sodium Chloride 250 mls @ 3,000 mls/hr 02/17/19 13:58 Normal Saline - IV 02/18/19 13:58 PRN PRN Hypotension during Dialysis Metoprolol Succinate 50 mg 02/15/19 22:00 02/18/19 10:29 Toprol Xl - PO Not Given BID [facility] Multi-Ingredient Lotion 1 applic 02/17/19 07:12 Eucerin (Small Jar) - TP DAILY PRN DRY SKIN Pancrelipase 1 cap 02/16/19 08:00 02/18/19 12:[address] 36,000 Units Capsule PO 1 cap TIDCM [facility] Administration Pantoprazole Sodium 40 mg 02/16/19 10:00 02/18/19 12:25 Protonix - PO 40 mg DAILY [facility] Administration Polyethylene Glycol 17 gm 02/16/19 10:00 02/18/19 12:27 Miralax (For Daily Use) - PO 17 grams DAILY [facility] Administration Senna 2 tab 02/15/19 20:13 Senna - PO HS PRN CONSTIPATION Tiotropium [place] 2 puff 02/16/19 10:00 02/18/19 12:30 Spiriva Respimat IH 2 puff DAILY [facility] Administration Impression 1. ESRD 2. CHF 3. COPD 4. asthma 5. dyspnea 6. HTN 7. a-fib 8. fluid overload 9. CAD 10. cellulitis Plan - pt tolerated HD today - HD tomorrow set up as outpt - 80 mg of lasix on non HD days - elevate legs - abx for cellulitis - renal diet, discussed with pt and daughter, pt eating chicken wings
--- NOTE | 2019-02-18 13:24 | PN ---
Teaching Attending Note Name of Resident: Samantha Dash ATTENDING PHYSICIAN STATEMENT I saw and evaluated the patient. I reviewed the resident's note and discussed the case with the resident. I agree with the resident's findings and plan as documented with exceptions below. SUBJECTIVE: Patient seen and examined, getting HD, no complaints. OBJECTIVE: Vital Signs Period Temp Pulse Resp BP Sys/Perez Pulse Ox Last 24 Hr 96.9 F-98.2 F 80-108 18-20 93-135/43-93 97-97 Intake & Output 02/15/19 02/16/19 02/17/19 02/18/19 23:59 23:59 23:59 23:59 Intake Total 120 1140 1300 500 Output Total 2800 2500 Balance 120 1140 -1500 -2000 Weight 143 lb 144 lb 8 oz 147 lb 3.2 oz 145 lb 14.4 oz General: sitting in bed, breathing improved neck: soft, supple Chest: minimal fine basilar rales, no wheezing Abdomen:soft, NT Extremities: improved pedal edema and erythema Home Medications Medication Instructions Recorded Apixaban [Eliquis] 2.5 tab PO BID 05/22/17 Fluticasone/Salmeterol [Advair Hfa 12 gm IH DAILY 05/22/17 230-21 Mcg Inhaler] Omeprazole 40 mg PO DAILY 05/22/17 Simvastatin 40 mg PO DAILY 05/22/17 Tiotropium [place] [Spiriva] 2.5 mcg IH BID 05/22/17 Diltiazem Cd [Cardizem Cd -] 120 mg PO DAILY 30 Days #30 01/26/19 cap.cd.24h Furosemide [Lasix] 40 mg PO BID 30 Days #60 tablet 01/26/19 Metoprolol Succinate [Toprol Xl] 50 mg PO BID 30 Days #60 tab.er.24h 01/26/19 Albuterol Sulfate Inhaler - 180 mcg IH Q4H PRN 02/14/19 [Ventolin HFA Inhaler -] Cephalexin Monohydrate [Keflex -] 250 mg PO BID 5 Days #10 capsule 02/18/19 Lactobacillus Acidophilus [Bacid -] 1 each PO DAILY 7 Days #7 capsule 02/18/19 Active Medications Acetaminophen (Tylenol -) 650 mg PO Q6H PRN PRN Reason: Fever Or Pain Last Admin: 02/18/19 08:08 Dose: 650 mg Albuterol Sulfate (Ventolin Hfa Inhaler -) 2 puff IH Q4H PRN PRN Reason: SHORT OF BREATH/WHEEZING Albuterol/Ipratropium (Duoneb -) 1 amp NEB RQ4H [facility] Last Admin: 02/18/19 08:42 Dose: Not Given Apixaban (Eliquis -) 2.5 mg PO BID [facility] Last Admin: 02/18/19 12:25 Dose: 2.5 mg Atorvastatin Calcium (Lipitor -) 20 mg PO HS [facility] Last Admin: 02/17/19 22:17 Dose: 20 mg Budesonide/Formoterol Fumarate (Symbicort 80/4.5mcg -) 2 puff IH BID [facility] Last Admin: 02/18/19 12:29 Dose: 2 puff Cephalexin HCl (Keflex -) 250 mg PO BID [facility] Stop: 02/20/19 10:01 Last Admin: 02/18/19 12:31 Dose: 250 mg Diltiazem HCl (Cardizem Cd -) 120 mg PO DAILY [facility] Last Admin: 02/18/19 10:27 Dose: Not Given Docusate Sodium (Colace -) 100 mg PO BID [facility] Last Admin: 02/18/19 12:25 Dose: 100 mg Emollient Ointment (Aquaphor -) 1 applic TP BID [facility] Last Admin: 02/18/19 10:30 Dose: Not Given Sodium Chloride (Normal Saline -) 250 mls @ 3,000 mls/hr IV PRN PRN PRN Reason: Hypotension during Dialysis Sodium Chloride (Normal Saline -) 250 mls @ 3,000 mls/hr IV PRN PRN PRN Reason: Hypotension during Dialysis Stop: 02/18/19 13:58 Metoprolol Succinate (Toprol Xl -) 50 mg PO BID [facility] Last Admin: 02/18/19 10:29 Dose: Not Given Multi-Ingredient Lotion (Eucerin (Small Jar) -) 1 applic TP DAILY PRN PRN Reason: DRY SKIN Pancrelipase (Creon Dr 36,000 Units Capsule) 1 cap PO TIDCM [facility] Last Admin: 02/18/19 12:26 Dose: 1 cap Pantoprazole Sodium (Protonix -) 40 mg PO DAILY [facility] Last Admin: 02/18/19 12:25 Dose: 40 mg Polyethylene Glycol (Miralax (For Daily Use) -) 17 gm PO DAILY [facility] Last Admin: 02/18/19 12:27 Dose: 17 grams Senna (Senna -) 2 tab PO HS PRN PRN Reason: CONSTIPATION Tiotropium [place] (Spiriva Respimat) 2 puff IH DAILY [facility] Last Admin: 02/18/19 12:30 Dose: 2 puff Laboratory Results - last 24 hr 02/18/19 07:35 Sodium 139 Potassium 4.2 Chloride 101 Carbon Dioxide 30 Anion Gap 9 BUN 28.2 H Creatinine 2.6 H Est GFR (CKD-EPI)AfAm 18.61 Est GFR (CKD-EPI)NonAf 16.06 Random Glucose 110 H Calcium 9.4 Microbiology 02/13/19 00:15 Blood - Peripheral Venous Blood Culture - Final NO GROWTH AFTER 5 DAYS INCUBATION 02/13/19 00:15 Blood - Peripheral Venous Blood Culture - Final NO GROWTH AFTER 5 DAYS INCUBATION ASSESSMENT AND PLAN: 88 yof with PMhx of CKD stage V, transiently on HD in , discharged on lasix, planned for outpatient HD at [facility], but missed her session, concern for lasix non compliance chronic hypoxic/hypercapneic resp failure/COPD on 3L home O2, chronic diastolic HF, A-fib on eliquis has pacemaker, CAD, HTN, chronic LBBB, HLD, CVA admitted with progressive dyspnea. -Acute on chronic diastolic heart failure exacerbation, suspect from missing HD session/dietary/medication non compliance, r/o Afib with RVR -CKD stage V, transiently on HD in , discharged on lasix, planned for outpatient HD at [facility], but missed her session -Atrial fibrillation with RVR, from above vs underyling etiology for recurrent CHF. -Chronic hypoxic/hypercapneic respiratory failure -LE cellulitis vs contact dermatitis -COPD on 3 L home oxygen -Afib on eliquis, s/p PPM -Iron deficiency anemia -CAD -HTN -HLD -CVA Plan: Continues to improve, another session of HD Intermittently refusing HD in the hospital, Discussed with patient in detail, stressed importance of compliance with HD, diet and fluid restriction to avoid recurrent admissions. She relays understanding. Additional lasix per renal. Fluid restriction. Anticipate needs [facility] HD. Will defer access arrangements to renal. discussed with Dr. Barrios, plan for repeat HD tomorrow and d/c with outpatient follow up if no concerns. Diltiazem/Toprol XL as hemodynamics permit Nutrition consult to address CHF education/diet. LE duplex noted, LE findings more suggestive of contact dermatitis, ?from recent trial with compression stockings. Short course of keflex, monitor for now. Cont eliquis Recent 2D echo noted. s/p IV iron, monitor h/h. Dispo dc home with services with outpatient HD. Discussed with patient, nursing and nephrology.
[2019-02-18] MEDS ORDERED: ACETAMINOPHEN 325 MG TABLET (FP) PO ONE (13:34)
[2019-02-18] MEDS ORDERED: MAG HYDROX/AL HYDROX/SIMETH 30 ML UNIT-DOSE CUP PO ONE (13:45)
[2019-02-18 16:32] VITALS: BP 91/47; PULSE 103; TEMP 98.2
--- NOTE | 2019-02-18 16:38 | DS ---
Physical Exam: SUBJECTIVE: Patient seen and examined initially during HD. She had epigastric pain and shortness of breath. She reported improvement in lower extremity redness. Following HD, she reports epigastric pain, bilateral leg pain, right shoulder pain, and shortness of breath. The epigastric and leg pain are chronic and occur often after HD per pt. She denies chest pain. OBJECTIVE: Vital Signs Period Temp Pulse Resp BP Sys/Perez Pulse Ox Last 24 Hr 96.9 F-98.2 F 80-105 18-24 91-135/43-93 97-97 PHYSICAL EXAM GENERAL: The patient is awake, alert, and fully oriented, not in distress HEAD: Normal with no signs of trauma. EYES: PERRL, extraocular movements intact, wears glasses ENT: Ears normal, nares patent, moist mucous membranes. NECK: Trachea midline, full range of motion CHEST: right side cath port, healing ecchymosis LUNGS: CTA, no accessory muscle use HEART: Regular rate and rhythm, no murmur ABDOMEN: Distended, tender epigastric area, normoactive bowel sounds EXTREMITIES: bilateral lower extremity circumferential erythema with demarcation line just below knees, erythema is continuing to decrease and well as peeling skin, +1 pitting edema, tender to palpation; right shoulder pain with abduction and flexion, no crepitus noted on passive ROM NEUROLOGICAL: Normal speech, moves all limbs PSYCH: Normal mood, normal affect. SKIN: Warm, dry, normal turgor LABS Laboratory Results - last 24 hr 02/18/19 07:35 Sodium 139 Potassium 4.2 Chloride 101 Carbon Dioxide 30 Anion Gap 9 BUN 28.2 H Creatinine 2.6 H Est GFR (CKD-EPI)AfAm 18.61 Est GFR (CKD-EPI)NonAf 16.06 Random Glucose 110 H Calcium 9.4 HOSPITAL COURSE: Ms. Owen is an 88 y/o female with diastolic CHF, recent onset ESRD on HD TTS (non-compliant), paroxysmal a-fib s/p PPM on Eliquis, COPD (3L O2 at home), CAD, HTN, HLD, and CVA who presents with bilateral lower extremity pain and shortness of breath. She has had recent admissions for CHF exacerbation following missing HD sessions. She was SOB on presentation with abdominal distention and bilateral sharply demarcated erythema and swelling of bilateral lower extremities below the knees. She also had a mild leukocytosis. Hemodynamically stable. CXR showed congestion. Doppler negative for DVTs bilaterally. Pt was given Lasix and HD on alternating days. She was also given Keflex for possible cellulitis of LEs. Erythema and swelling improved, but pt did not report much improvement in SOB. She was discharged home and is to attend her regular session of HD tomorrow. Date of Admission:02/12/19 Date of Discharge: 02/18/19 Minutes to complete discharge: 35 Discharge Summary Problems reviewed: Yes Reason For Visit: ACUTE ON CHRONIC HEART FAILURE Current Active Problems Acute on chronic diastolic CHF (congestive heart failure) (Acute) Erythema of lower extremity (Acute) Iron deficiency anemia (Acute) FRYE (dyspnea on exertion) (Chronic) ESRD (end stage renal disease) (Chronic) History of COPD (Chronic) Condition: Stable - Instructions Diet, Activity, Other Instructions: Hospital visit: You were admitted to the hospital to have extra fluid removed by dialysis. You had several sessions which helped. You also had redness on your legs that were treated with antibiotics. You are able to go home and continue dialysis tomorrow as usual. Medications: TAKE LASIX 80MG ONCE A DAY ON DAYS YOU DO NOT HAVE DIALYSIS. DO NOT TAKE LASIX ON DIALYSIS DAYS. Continue all your other home medications like before. Keflex 250mg twice a day for 5 days (antibiotic) Bacid 1 pill once a day for 7 days. Take this at least 2 hours apart from Keflex. (probiotic) Follow up: Dr. Johnson, primary care, within 1 week of discharge to check your legs and the hemoglobin level in your blood. Dr. Barrios, nephology. Call his office tomorrow to make an appointment. Resume your normal dialysis schedule starting tomorrow at [facility]. Diet: It is important to eat a low salt diet and limit the amount of liquids you drink to 4 8oz cups a day. This will prevent fluid from building up in your body. Other instructions: Monitor your weight daily. If you notice a 2-3 pound weight gain in 4-5 days, call Dr. Johnson or Dr. Barrios. You can also go to the emergency room. Keep your legs elevated if possible to help the swelling in your legs. Return to the emergency room also if you have chest pain, difficulty breathing, or lightheadedness/dizziness or any new concerns. Referrals: Diaz Johnson MD [Staff Physician] - Michell Barrios MD [Staff Physician] - Disposition: VNS/HOME HEALTH CARE - Home Medications Comprehensive Discharge Medication List: Ambulatory Orders Apixaban [Eliquis] 2.5 tab PO BID 05/22/17 Fluticasone/Salmeterol [Advair Hfa 230-21 Mcg Inhaler] 12 gm IH DAILY 05/22/17 Omeprazole 40 mg PO DAILY 05/22/17 Simvastatin 40 mg PO DAILY 05/22/17 Tiotropium [place] [Spiriva] 2.5 mcg IH BID 05/22/17 Diltiazem Cd [Cardizem Cd -] 120 mg PO DAILY 30 Days #30 cap.cd.24h 01/26/19 Metoprolol Succinate [Toprol Xl] 50 mg PO BID 30 Days #60 tab.er.24h 01/26/19 Albuterol Sulfate Inhaler - [Ventolin HFA Inhaler -] 180 mcg IH Q4H PRN Cephalexin Monohydrate [Keflex -] 250 mg PO BID 5 Days #10 capsule 02/18/19 Furosemide 80 mg PO ASDIR #30 tablet 02/18/19 Lactobacillus Acidophilus [Bacid -] 1 each PO DAILY 7 Days #7 capsule 02/18/19 This patient is new to me today: Yes Date on this admission: 02/18/19 Emergency Visit: Yes ED Registration Date: 02/12/19 Care time: The patient presented to the Emergency Department on the above date and was hospitalized for further evaluation of their emergent condition. Critical Care patient: No - Discharge Referral Referred to [facility] No ATTENDING PHYSICIAN STATEMENT I saw and evaluated the patient. I reviewed the resident's note and discussed the case with the resident. I agree with the resident's findings and plan as documented. SUBJECTIVE: OBJECTIVE: ASSESSMENT AND PLAN:
== END 2019-02-18 19:52 | disposition home health service (06) | DRG 291 ==
LOC: JER 13:03 → JERBED 19:38 → J4W 02-13 15:43 → J5S 02-15 19:12
PROVIDERS: ADMIT Internal Medicine; ATTEND Hospitalist
PROC: 5A1D70Z Performance of Urinary Filtration, Intermittent, Less than 6 Hours Per Day (ICD-10-PCS; principal; 2019-02-13)
PROC: 5A1D70Z Performance of Urinary Filtration, Intermittent, Less than 6 Hours Per Day (ICD-10-PCS; 2019-02-14)
PROC: 5A1D70Z Performance of Urinary Filtration, Intermittent, Less than 6 Hours Per Day (ICD-10-PCS; 2019-02-17)
PROC: 5A1D70Z Performance of Urinary Filtration, Intermittent, Less than 6 Hours Per Day (ICD-10-PCS; 2019-02-18)
DX: I13.2 Hypertensive heart and chronic kidney disease with heart failure and with stage 5 chronic kidney disease, or end stage renal disease (principal); N18.6 End stage renal disease; I50.33 Acute on chronic diastolic (congestive) heart failure; J96.12 Chronic respiratory failure with hypercapnia; J96.11 Chronic respiratory failure with hypoxia; L03.116 Cellulitis of left lower limb; L03.115 Cellulitis of right lower limb; J44.9 Chronic obstructive pulmonary disease, unspecified; I48.91 Unspecified atrial fibrillation; K21.9 Gastro-esophageal reflux disease without esophagitis; I25.10 Atherosclerotic heart disease of native coronary artery without angina pectoris; E78.5 Hyperlipidemia, unspecified; I10 Essential (primary) hypertension; E88.09 Other disorders of plasma-protein metabolism, not elsewhere classified; E87.70 Fluid overload, unspecified; D50.9 Iron deficiency anemia, unspecified; E66.9 Obesity, unspecified; Z68.31 Body mass index [BMI] 31.0-31.9, adult; I44.7 Left bundle-branch block, unspecified; D64.9 Anemia, unspecified; Z86.73 Personal history of transient ischemic attack (TIA), and cerebral infarction without residual deficits; Z95.0 Presence of cardiac pacemaker; Z99.81 Dependence on supplemental oxygen; Z99.2 Dependence on renal dialysis; Z91.14 Patient's other noncompliance with medication regimen
CPT/HCPCS: 36415; 71045-TC-FY; 80048; 80053; 82550; 82565; 82728; 83540; 83550; 83690; 83735; 83880; 84100; 84466; 84484; 84520; 85025; 85027; 85044; 86803; 87040; 87340; 93005; 93010; 93970-TC; 94640; 97116-GP; 97161-GP; 99285-25; J0131; J0885; J1644; J1756

== ENCOUNTER 2019-02-19 03:51 | Inpatient (IN) | payer OTHER ==
[2019-02-19] MEDS ORDERED: ALBUTEROL SO4 2.5/IPRATROPIUM 0.5 INH SOL 3 ML VIAL.NEB. NEB ONE (03:55)
[2019-02-19] MEDS ORDERED: FUROSEMIDE 100 MG/10 ML INJECTABLE VIAL IVPB ONE (04:10)
--- NOTE | 2019-02-19 04:23 | PDOC ---
Attending Attestation - Resident Resident Name: Mario Fonseca - ED Attending Attestation I have performed the following: I have examined & evaluated the patient, The case was reviewed & discussed with the resident, I agree w/resident's findings & plan, Exceptions are as noted - HPI HPI: 02/19/19 04:18 88 y/o f CHF, ESRD on HD TTS via right tunneled subclavian cathetar, paroxysmal a-fib s/p PPM on Eliquis, COPD (3L O2 at home), CAD, HTN, HLD, and CVA who presents with sobPatient was recently admitted to the hospital for CHF exacerbation and just discharged from the hospital yesterday evening. Here with recurrent shortness of breath. States that her last dialysis was Saturday she is scheduled to receive dialysis this a.m. denies any fevers or chills or cough is complaining currently of some substernal epigastric pain no fever no chills no cough Review of recent discharge note shows the patient was initially admitted for CHF exacerbation and fluid overload was dialyzed given 80 of Lasix alternating days he was feeling much improved shortness of breath and discharged home during that stay she did also have negative Doppler studies of bilateral lower extremities and was treated for a potential cellulitis with Keflex - Physicial Exam PE: 02/19/19 04:20 Patient is awake alert feels to be in mild respiratory distress with accessory muscle use patient has diffuse crackles most lung drake heart is regular no murmurs rubs or gallops abdomen is obese mildly distended nontender extremities are with 2+ pitting edema bilaterally she has a well demarcated erythematous rash that has some peeling to the mid de la fuente down to her feet. She has 2+ DP PT pulses neurologically she is awake alert and oriented x3 moves all 4 extremities appears anxious - Medical Decision Making 02/19/19 04:21 88-year-old female history of COPD CHF end-stage renal disease on dialysis here with acute onset shortness of breath following her recent discharge less than 12 hours ago. Differential includes fluid overload, pneumonia, PE less likely as the patient is anticoagulated had a recent Doppler in the last week which was negative for DVT. Plan she was initially given DuoNeb's for potential COPD EKG CBC CMP chest x-ray was ordered she became increasingly short of breath with increased work of breathing BiPAP was ordered she was given 80 of Lasix IV piggyback focused cardiac ultrasound at bedside was performed patient has mild decreased contractility no pericardial effusion was noted no RV strain or dilation appreciated. Bilateral lung drake show diffuse B-lines consistent with pulmonary edema there was noted to be bilateral pleural effusions at the bases and air bronchograms in the right base consistent with possible atelectasis versus pneumonia chest x-ray is pending
--- NOTE | 2019-02-19 04:37 | PDOC ---
History of Present Illness - General Chief Complaint: Respiratory Stated Complaint: DIFFICULTY BREATHING Time Seen by Provider: 02/19/19 03:55 History Source: Patient, EMS, Old Records Exam Limitations: Clinical Condition, Language Barrier - History of Present Illness Initial Comments: 02/19/19 19:38 HPI: 88F PMH COPD (home O2 3L), ESRD HD (tunnel cath. right subclavian), pAF s/p PPM (on Eliquis), HTN/HLD/CAD, past CVA who was recently admitted to [facility] for CHF exacerbation (d/c 02/18/19) BIBEMS for recurrent SOB. Patient unable to fully participate in hx 2/2 sob and agitation/panic. Denies f/c. Endorsing substernal/ epigastric pain. Chart review shows patient was non-compliant w/ HD, had HD 02/17/19, and due for HD session this AM. Pt was noted to have well demarcated erythema of b/l LEs , DVT studies neg., treated w/ Keflex for possible cellulitis. HD and Lasix on alternating days during last admission. Past History - Past Medical History Allergies/Adverse Reactions: Allergies Allergy/AdvReac Type Severity Reaction Status Date / Time aspirin Allergy Verified 02/19/19 04:35 Home Medications: Ambulatory Orders Apixaban [Eliquis] 2.5 tab PO BID 05/22/17 Fluticasone/Salmeterol [Advair Hfa 230-21 Mcg Inhaler] 12 gm IH DAILY 05/22/17 Omeprazole 40 mg PO DAILY 05/22/17 Simvastatin 40 mg PO DAILY 05/22/17 Tiotropium [place] [Spiriva] 2.5 mcg IH BID 05/22/17 Diltiazem Cd [Cardizem Cd -] 120 mg PO DAILY 30 Days #30 cap.cd.24h 01/26/19 Metoprolol Succinate [Toprol Xl] 50 mg PO BID 30 Days #60 tab.er.24h 01/26/19 Albuterol Sulfate Inhaler - [Ventolin HFA Inhaler -] 180 mcg IH Q4H PRN Cephalexin Monohydrate [Keflex -] 250 mg PO BID 5 Days #10 capsule 02/18/19 Furosemide 80 mg PO ASDIR #30 tablet 02/18/19 Lactobacillus Acidophilus [Bacid -] 1 each PO DAILY 7 Days #7 capsule 02/18/19 Anemia: No Asthma: Yes Cancer: No Cardiac Disorders: Yes (AF, PPM, CAD, VA) CVA: Yes COPD: Yes CHF: Yes Dementia: No Diabetes: No GI Disorders: Yes (GASTRITIS) Disorders: No HTN: Yes Hypercholesterolemia: Yes Liver Disease: No Seizures: No Thyroid Disease: No - Surgical History Abdominal Surgery: No Appendectomy: No Cardiac Surgery: Yes (PACEMAKER) Cholecystectomy: No Lung Surgery: No Neurologic Surgery: No Orthopedic Surgery: No - Immunization History Td Vaccination: No TDAP Vaccination: No Immunization Up to Date: No - Psycho Social/Smoking Cessation Hx Smoking Status: Yes Smoking History: Former smoker Have you smoked in the past 12 months: No Number of Cigarettes Smoked Daily: 0 If you are a former smoker, when did you quit?: 1994 Information on smoking cessation initiated: No 'Breaking Loose' booklet given: 11/04/18 Hx Alcohol Use: No Drug/Substance Use Hx: No Substance Use Type: None Hx Substance Use Treatment: No Review of Systems - Review of Systems Able to Perform ROS?: No (clinical condition) Comments:: 02/19/19 19:38 ROS: CONSTITUTIONAL: Denies F / C RESP: Endorses SOB CARD: Endorses substernal chest pain, palpitations GI: Endorses epigastric pain Limited ROS 2/2 clinical condition Is the patient limited Amharic proficient: Yes *Physical Exam - Vital Signs Last Vital Signs Temp Pulse Resp BP Pulse Ox 97.3 F L 78 20 112/61 100 02/19/19 04:02 02/19/19 04:02 02/19/19 04:02 02/19/19 04:02 02/19/19 04:02 - Physical Exam Comments: 02/19/19 19:38 PE: GEN: Acutely distressed HEENT: NC/AT. No facial asymmetry. Normal voice. CV: S1/S2, RRR. LUNG: Poor air movement, quiet exam w/ coarse sounds throughout, unable to accurately assess for wheezing/rales/crackles. Increased work of breathing. GI: soft, ndnt, +BS EXTREMITIES: 2+ pitting edema of b/l LE. Well dermarcated erythema of the b/l LEs up the mid-de la fuente. LLE has a few bullae. SKIN: warm, dry, normal turgor NEURO: Moving all extremities well. ED Treatment Course - LABORATORY CBC & Chemistry Diagram: 02/19/19 04:40 02/19/19 04:40 - Medications Given in the ED: ED Medications Discontinued Medications Generic Name Dose Route Start Last Admin Trade Name Gee PRN Reason Stop Dose Admin Albuterol/Ipratropium 3 amp 02/19/19 03:55 02/19/19 04:00 Duoneb - NEB 02/19/19 03:56 3 amp ONCE ONE Administration Medical Decision Making - Critical Care Time Total Critical Care Time (minutes): 30 Critical Care Statement: The care of this patient involved high complexity decision making to prevent further life threatening deterioration of the patient 's condition and/or to evaluate & treat vital organ system(s) failure or risk of failure. - Medical Decision Making 02/19/19 04:37 MDM: 88F COPD, ESRD, pAF (PPM, Eliquis), CHF presenting with SOB shortly after discharge for CHF exacerbation admission. - BIPAP - CBC, CMP, VBG/ABG, BNP, CARDIAC, COAG, LACTATE - CXR, EKG - LASIX - RENAL C/S - ICU C/S - ADMIT 02/19/19 06:14 - labs reviewed - ICU consulted, no ICU at this time - Admit to hospitalists 02/19/19 07:20 signed out to day team Discharge - Discharge Information Problems reviewed: Yes Clinical Impression/Diagnosis: Acute on chronic diastolic CHF (congestive heart failure), Acute respiratory failure Pulmonary edema Qualifiers: Chronicity: acute Qualified Code(s): J81.0 - Acute pulmonary edema Condition: Stable - Admission Yes - Follow up/Referral - Patient Discharge Instructions - Post Discharge Activity
[2019-02-19] MEDS ORDERED: FUROSEMIDE 40 MG/4 ML INJECTABLE VIAL ONE (04:48)
[2019-02-19 04:59] LABS: BASO % 1.4 % (0-2.0); EOS % 0.8 % (0-4.5); HEMOGLOBIN 9.1 GM/dL (10.7-15.3); LYMPH % 17.7 % (8-40); MCH 26.4 pg (25.7-33.7); MCHC 30.2 g/dl (32.0-36.0); MEAN CELL VOLUME 87.5 fl (80-96); MEAN PLT VOLUME 7.9 fl (7.5-11.1); MONO % 15.2 % (3.8-10.2); NEUT % 64.9 % (42.8-82.8); PLATELET COUNT 168 K/MM3 (134-434); RBC 3.43 M/mm3 (3.60-5.2); RDW 19.2 % (11.6-15.6); WHITE BLOOD COUNT 7.7 K/mm3 (4.0-10.0)
[2019-02-19 05:17] LABS: VENOUS PC02 59.4 mmHg (38-52); VENOUS PH 7.33 (7.31-7.41); VENOUS PO2 < 49 mmHg (28-48)
[2019-02-19 05:25] LABS: ALBUMIN 3.3 g/dl (3.4-5.0); BILIRUBIN,TOTAL 0.8 mg/dL (0.2-1); BLOOD UREA NITROGEN 25.4 mg/dL (7-18); CALCIUM 9.2 mg/dL (8.5-10.1); CREATININE 2.7 mg/dL (0.55-1.3); MAGNESIUM 1.8 mg/dL (1.8-2.4); N-TERMINAL BNP 7027.9 pg/ml (5-450); TOT PROT 6.8 g/dl (6.4-8.2)
[2019-02-19 05:27] LABS: INR 2.09 (0.83-1.09); PROTHROMBIN TIME (PATIENT) 24.9 SEC (9.7-13.0)
--- NOTE | 2019-02-19 06:03 | CONSULT ---
Consultation: REQUESTING PROVIDER: Dr. Mario Fonseca CONSULT REQUEST: We have been asked to medically evaluate this patient for SOB. HISTORY OF PRESENT ILLNESS: 88 y/o F acute on chronic diastolic CHF, ESRD on HD (TTS) via right tunneled subclavian catheter, paroxysmal a-fib s/p PPM on Eliquis, COPD (3L O2 at home), CAD, HTN, HLD, and CVA, who presents to the ED c/o SOB. Per granddaughter at bedside, pt has been feeling SOB ever since her d/c yesterday. Was initially admitted for acute on chronic diastolic CHF exacerbation, and her vol overload was corrected with lasix diuresis as well as hemodialysis while in-patient. She was d/c yesterday 02/18. Per ED staff, when pt arrived she was SOB, but was sat 90's on 3L NC. She was given IV lasix 80mg x 1 and was placed on biPAP (low settings 10/5) for work of breathing. Upon my examination, pt having full conversation while on BiPAP, sat 95%. Does not appear to be in any distress currently. Denies CHINO, fever, chills, chest pain or changes in urinary or bowel function. ICU was consulted for SOB. Nephro was consulted by ED, and pt will likely need dialysis today. REVIEW OF SYSTEMS: +SOB PHYSICAL EXAMINATION Vital Signs - 24 hr 02/19/19 02/19/19 04:02 05:37 Temperature 97.3 F L Pulse Rate 78 Respiratory 20 Rate Blood Pressure 112/61 O2 Sat by Pulse 99 100 Oximetry (%) GENERAL: AAO x 2 (self, place- baseline per granddaughter) HEAD: Normal with no signs of trauma. EYES: Pupils equal, round and reactive to light, extraocular movements intact, sclera anicteric, conjunctiva clear. No lid lag. EARS, NOSE, THROAT: Ears normal, nares patent, oropharynx clear without exudates. Moist mucous membranes. NECK: Normal range of motion, supple LUNGS: +diffuse crackles bilaterally, no accessory m usage currently HEART: Regular rate and rhythm, normal S1 and S2 without murmur, rub or gallop. ABDOMEN: Soft, obese, mildly tender, not distended LOWER EXTREMITIES: 2+ pt pulses, warm, well demarcated erythema to mid-de la fuente, 2+ pitting edema b/l NEUROLOGICAL: Cranial nerves II-XII intact. PSYCHIATRIC: Cooperative. SKIN: as above; well demarcated Laboratory Tests 02/19/19 02/19/19 02/19/19 04:40 04:40 04:40 WBC 7.7 Hgb 9.1 L Hct 30.0 L Plt Count 168 INR 2.09 H VBG pH Sodium 139 Potassium 4.0 Chloride 102 Carbon Dioxide 29 Anion Gap 7 L BUN 25.4 H Creatinine 2.7 H Alkaline Phosphatase 118 H B-Natriuretic Peptide 7027.9 H 02/19/19 04:40 INR VBG pH 7.33 Sodium CXR: +w/ vol overload, congestion, blunting costophrenic angles - pl eff. same as previous. ASSESSMENT/PLAN: 88 y/o F acute on chronic diastolic CHF, ESRD on HD (TTS) via right tunneled subclavian catheter, paroxysmal a-fib s/p PPM on Eliquis, COPD (3L O2 at home), CAD, HTN, HLD, and CVA, who presents to the ED c/o SOB. ICU was consulted for SOB. #Neuro -AAOx 2, at baseline per granddaughter #Pulm/Renal SOB likely 2/ vol overload 2/2 ESRD, non-compliance -per granddaughter, pt non-compliant, may have drank increased amt water after d /c -pt will likely need dialysis today. (//Sat); renal contacted by ED (Dr. Barrios) -can wean from BiPAP as able; pt currently sat 100%. appears comfortable -c/t diurese lasix 80mg IVP on non-dialysis days -recommend ABG. VBG was done pH 7.33 Acute on diastolic CHF -recommend c/w lasix, daily wts, na control 2g, strict i/o -recent ECHO 12/2018: RV normal size and fnc, mod MR, mod TR, RVSP elevated at 30 -40mmHg -CXR appears unchanged from previous; with cont'd overload, b/l pl eff #Cardio paraoxysmal afib, s/p PPM HTN -currently in sinus -diltiazem, toprol as hemodynamics permit -c/w eliquis #ID LE cellulitis vs. contact dermatitis -c/w keflex course, initiated on d/c #F/E/N no IVF at this time continue to follow lytes NPO while on BiPAP #PPX on eliquis #Dispo at this time, pt is sat 100% and appears very comfortable on BiPAP. Able to hold full conversation without distress. No accessory m usage. Will not take to ICU . However please consult back as needed. D/w Theron Booker, and Aretha. Sari Cedeño MD PGY-3 ICU team Visit type - Emergency Visit Emergency Visit: Yes Care time: The patient presented to the Emergency Department on the above date and was hospitalized for further evaluation of their emergent condition. - New Patient This patient is new to me today: Yes Date on this admission: 02/19/19 - Critical Care Critical Care patient: No
[2019-02-19 07:17] LABS: ARTERIAL BLD GAS O2 SATURATION 98.2 % (95-98); ARTERIAL BLOOD GAS BASE EXCESS 1.6 meq/l (-2-2); ARTERIAL BLOOD GAS PCO2 46.4 mmHg (35-45); ARTERIAL BLOOD GAS PO2 108 mmHg (80-100); ARTERIAL BLOOD GAS pH 7.38 (7.35-7.45); CARBOXYHEMOGLOBIN 1.5 % (0-2)
[2019-02-19 07:19] LABS: ALLENS TEST POSITIVE
--- NOTE | 2019-02-19 07:35 | PDOC ---
*Physical Exam - Vital Signs Last Vital Signs Temp Pulse Resp BP Pulse Ox 97.3 F L 86 14 113/77 95 02/19/19 04:02 02/19/19 07:22 02/19/19 06:45 02/19/19 06:45 02/19/19 07:22 - Physical Exam General Appearance: Yes: Nourished, Appropriately Dressed. No: Apparent Distress HEENT: positive: EOMI, JANETT, Normal Voice, Symmetrical, Pharynx Normal, Hearing Grossly Normal. negative: Scleral Icterus (R), Scleral Icterus (L) Neck: positive: Normal Thyroid, Rigid, Supple. negative: Tender, Lymphadenopathy (R), Lymphadenopathy (L) Respiratory/Chest: positive: Lungs Clear, Crackles (bilateral lower lobe crackles). negative: Chest Tender, Accessory Muscle Use, Stridor Cardiovascular: positive: Irregularly Irregular Gastrointestinal/Abdominal: positive: Normal Bowel Sounds, Flat, Soft. negative : Tender Musculoskeletal: positive: Normal Inspection. negative: CVA Tenderness Extremity: positive: Normal Capillary Refill, Normal Range of Motion, Pedal Edema, Swelling (bilateral LE edema with erythema concerning for cellulitis). negative: Normal Inspection Integumentary: positive: Normal Color, Dry, Warm. negative: Clammy Neurologic: positive: Alert, Normal Mood/Affect, Normal Response ED Treatment Course - LABORATORY CBC & Chemistry Diagram: 02/19/19 04:40 02/19/19 04:40 - ADDITIONAL ORDERS Additional order review: Laboratory Results 02/19/19 02/19/19 02/19/19 07:06 04:40 04:40 PT with INR INR PTT (Actin FS) Anticoagulation Therapy No Result Required. Puncture Site Right radial ABG pH 7.38 ABG pCO2 at Pt Temp 46.4 H ABG pO2 at Pt Temp 108 H ABG HCO3 26.5 ABG O2 Sat (Measured) 98.2 H ABG O2 Content 11.9 ABG Base Excess 1.6 Ankit Test Positive VBG pH 7.33 POC VBG pCO2 59.4 H POC VBG pO2 < 49 H VBG HCO3 30.3 H VBG O2 Sat (Daniella) 32.2 L VBG Base Excess 4.0 H Carboxyhemoglobin 1.5 Methemoglobin < 1.0 O2 Delivery Device Bipap Oxygen Flow Rate 35% Vent Mode No Result Required. Vent Rate 14 Mechanical Rate No Result Required. Pressure Support Vent 02/07 Sodium Potassium Chloride Carbon Dioxide Anion Gap BUN Creatinine Est GFR (CKD-EPI)AfAm Est GFR (CKD-EPI)NonAf Random Glucose Lactic Acid Calcium Magnesium Total Bilirubin AST ALT Alkaline Phosphatase Creatine Kinase Troponin I B-Natriuretic Peptide Total Protein Albumin Blood Type O POSITIVE Antibody Screen Negative 02/19/19 02/19/19 02/19/19 04:40 04:40 04:40 PT with INR 24.90 H INR 2.09 H PTT (Actin FS) 33.8 Anticoagulation Therapy Puncture Site ABG pH ABG pCO2 at Pt Temp ABG pO2 at Pt Temp ABG HCO3 ABG O2 Sat (Measured) ABG O2 Content ABG Base Excess Ankit Test VBG pH POC VBG pCO2 POC VBG pO2 VBG HCO3 VBG O2 Sat (Daniella) VBG Base Excess Carboxyhemoglobin Methemoglobin O2 Delivery Device Oxygen Flow Rate Vent Mode Vent Rate Mechanical Rate Pressure Support Vent Sodium 139 Potassium 4.0 Chloride 102 Carbon Dioxide 29 Anion Gap 7 L BUN 25.4 H Creatinine 2.7 H Est GFR (CKD-EPI)AfAm 17.78 Est GFR (CKD-EPI)NonAf 15.34 Random Glucose 92 Lactic Acid Calcium 9.2 Magnesium 1.8 Total Bilirubin 0.8 AST 26 ALT 10 L Alkaline Phosphatase 118 H Creatine Kinase 41 Troponin I 0.02 B-Natriuretic Peptide 7027.9 H Total Protein 6.8 Albumin 3.3 L Blood Type Antibody Screen 02/19/19 04:10 PT with INR INR PTT (Actin FS) Anticoagulation Therapy Puncture Site ABG pH ABG pCO2 at Pt Temp ABG pO2 at Pt Temp ABG HCO3 ABG O2 Sat (Measured) ABG O2 Content ABG Base Excess Ankit Test VBG pH POC VBG pCO2 POC VBG pO2 VBG HCO3 VBG O2 Sat (Daniella) VBG Base Excess Carboxyhemoglobin Methemoglobin O2 Delivery Device Oxygen Flow Rate Vent Mode Vent Rate Mechanical Rate Pressure Support Vent Sodium Potassium Chloride Carbon Dioxide Anion Gap BUN Creatinine Est GFR (CKD-EPI)AfAm Est GFR (CKD-EPI)NonAf Random Glucose Lactic Acid 1.8 Calcium Magnesium Total Bilirubin AST ALT Alkaline Phosphatase Creatine Kinase Troponin I B-Natriuretic Peptide Total Protein Albumin Blood Type Antibody Screen 02/19/19 04:40 RBC 3.43 L MCV 87.5 MCHC 30.2 L RDW 19.2 H MPV 7.9 Neutrophils % 64.9 Lymphocytes % 17.7 Monocytes % 15.2 H Eosinophils % 0.8 Basophils % 1.4 - Medications Given in the ED: ED Medications Discontinued Medications Generic Name Dose Route Start Last Admin Trade Name Gee PRN Reason Stop Dose Admin Albuterol/Ipratropium 3 amp 02/19/19 03:55 02/19/19 04:00 Duoneb - NEB 02/19/19 03:56 3 amp ONCE ONE Administration Furosemide 80 mg 02/19/19 04:10 02/19/19 04:57 Lasix Injection - IVPB 02/19/19 04:11 80 mg ONCE ONE Administration Medical Decision Making - Medical Decision Making 02/19/19 07:30 Signed out to me by Dr. Fonseca. Angélica Owen is an 88F with PMH CHF <24hr s/p admission for exacerbation , COPD on 3L home O2, pAF on Eliquis s/p pacemaker, ESRD on HD T// presenting with SOB and respiratory distress. Patient was recently discharged after admission for a CHF exacerbation, discharged last night, bounce back for SOB. Placed on BiPap, and given 80mg IV Lasixsignificant improvement. Evidence of pulmonary edema/CHF on CXR, bedside US,and physical exam. Has well-demarcated BLE edema, discharged home on Keflex by admitting team last night for possible cellulitis. Non-compliant with dietary restrictions for ESRD, drinks a significant amount of water/salty foods despite counseling that this will worsen her fluid overload. Needs HD today, , last HD 2 days ago Nephro consulted, Dr. Barrios on board to dialyze her today. ICU consulted, no need for ICU at this time. Pending admission. 02/19/19 07:40 CXR preliminary read shows diffuse opacification of the airspaces in both lungs L > R consistent with pulmonary edema. ECG shows paced Afib rhythm. 02/19/19 07:[address] Christensen and Dr. Brown. Dr. Brown is familiar with the patient, knows she is non-compliant with diet. Concern for CHF exacerbation and would normally need tele bed, but would cause delay in getting dialysis which is what the patient actually needs. Given ECG showing paced afib rhythm with majority of QRS paced and no evidence of RVR or VS instability, patient resting comfortably satting 97% on 3L NC, patient good candidate for Med-Surg. Plan to admit patient to Med-Surg and AM dialysis. Discharge - Discharge Information Problems reviewed: Yes Clinical Impression/Diagnosis: Acute on chronic diastolic CHF (congestive heart failure) Pulmonary edema Qualifiers: Chronicity: acute Qualified Code(s): J81.0 - Acute pulmonary edema Acute respiratory failure Qualifiers: Respiratory failure complication: hypoxia Qualified Code(s): J96.01 - Acute respiratory failure with hypoxia Condition: Stable - Admission Yes - Follow up/Referral - Patient Discharge Instructions - Post Discharge Activity
[2019-02-19] MEDS ORDERED: ACETAMINOPHEN 325 MG TABLET (FP) PO ONE ×2 (07:47→20:15)
[2019-02-19] MEDS ORDERED: ACETAMINOPHEN 325 MG TABLET (FP) ONE (07:50)
[2019-02-19] MEDS ORDERED: ALBUTEROL SO4 8 GM HFA INHALER IH PRN ×2 (08:16→10:30)
--- NOTE | 2019-02-19 08:35 | HP ---
CHIEF COMPLAINT: shortness of breath PCP: Dr. Franklin HISTORY OF PRESENT ILLNESS: Patient is a 88 y/o female with a history of COPD on 3L O2, HFpEF, afib on eliquis, CAD, HTN, HLD, ESRD on dialysis (, Sat, Sat), and CVA who presents for shortness of breath. Patient was discharged from the hospital yesterday. She was admitted for CHF exacerbation and began dialysis to help her anasarca. She was discharged with a schedule and follow up through [facility]. Patient's last dialysis was Saturday and was scheduled for dialysis today. She presented to the ED due to worsening shortness of breath. While in the ED patient was placed on bipap and given 80 of lasix. States she feels better. Denies headache , nausea, vomiting, chest pain. Only complains of shortness of breath and worsening swelling. ER course was notable for: (1) (2) (3) Recent Travel: PAST MEDICAL HISTORY: COPD on 3L O2, HFpEF, afib on eliquis, CAD, HTN, HLD, ESRD on dialysis (, Sat, Sat), and CVA PAST SURGICAL HISTORY: pacemaker placement Social History: Smoking: former smoker Alcohol: denies Drugs: denies Allergies aspirin Allergy (Verified 02/19/19 04:35) HOME MEDICATIONS: Home Medications Medication Instructions Recorded Apixaban [Eliquis] 2.5 tab PO BID 05/22/17 Fluticasone/Salmeterol [Advair Hfa 12 gm IH DAILY 05/22/17 230-21 Mcg Inhaler] Omeprazole 40 mg PO DAILY 05/22/17 Simvastatin 40 mg PO DAILY 05/22/17 Tiotropium [place] [Spiriva] 2.5 mcg IH BID 05/22/17 Diltiazem Cd [Cardizem Cd -] 120 mg PO DAILY 30 Days #30 01/26/19 cap.cd.24h Metoprolol Succinate [Toprol Xl] 50 mg PO BID 30 Days #60 tab.er.24h 01/26/19 Albuterol Sulfate Inhaler - 180 mcg IH Q4H PRN 02/14/19 [Ventolin HFA Inhaler -] Cephalexin Monohydrate [Keflex -] 250 mg PO BID 5 Days #10 capsule 02/18/19 Furosemide 80 mg PO ASDIR #30 tablet 02/18/19 Lactobacillus Acidophilus [Bacid -] 1 each PO DAILY 7 Days #7 capsule 02/18/19 REVIEW OF SYSTEMS CONSTITUTIONAL: Absent: fever, chills, diaphoresis, generalized weakness, malaise, loss of appetite, weight change HEENT: Absent: rhinorrhea, nasal congestion, throat pain, throat swelling, difficulty swallowing, mouth swelling, ear pain, eye pain, visual changes CARDIOVASCULAR: Absent: chest pain, syncope, palpitations, irregular heart rate, lightheadedness , peripheral edema RESPIRATORY: shortness of breath Absent: cough, dyspnea with exertion, orthopnea, wheezing, stridor, hemoptysis GASTROINTESTINAL: Absent: abdominal pain, abdominal distension, nausea, vomiting, diarrhea, constipation, melena, hematochezia GENITOURINARY: Absent: dysuria, frequency, urgency, hesitancy, hematuria, flank pain, genital pain MUSCULOSKELETAL: Absent: myalgia, arthralgia, joint swelling, back pain, neck pain SKIN: Absent: rash, itching, pallor HEMATOLOGIC/IMMUNOLOGIC: Absent: easy bleeding, easy bruising, lymphadenopathy, frequent infections ENDOCRINE: Absent: unexplained weight gain, unexplained weight loss, heat intolerance, cold intolerance NEUROLOGIC: Absent: headache, focal weakness or paresthesias, dizziness, unsteady gait, seizure, mental status changes, bladder or bowel incontinence PSYCHIATRIC: Absent: anxiety, depression, suicidal or homicidal ideation, hallucinations. PHYSICAL EXAMINATION Vital Signs - 24 hr 02/19/19 02/19/19 02/19/19 04:02 05:37 06:45 Temperature 97.3 F L Pulse Rate 78 Pulse Rate [ 78 Left] Respiratory 20 14 Rate Blood Pressure 112/61 Blood Pressure 113/77 [Right Arm] O2 Sat by Pulse 99 100 99 Oximetry (%) 02/19/19 07:22 Temperature Pulse Rate 86 Pulse Rate [ Left] Respiratory Rate Blood Pressure Blood Pressure [Right Arm] O2 Sat by Pulse 95 Oximetry (%) GENERAL: Awake, alert, and fully oriented, HEAD: Normal with no signs of trauma. EYES: Pupils equal, round and reactive to light, extraocular movements intact, EARS, NOSE, THROAT: Moist mucous membranes. LUNGS: decreased breath sounds HEART: Regular rate and rhythm, normal S1 and S2 without murmur, rub or gallop. ABDOMEN: Soft, nontender, not distended, normoactive bowel sounds, no guarding, no rebound, no masses. . LOWER EXTREMITIES: 2+ pulses, warm, well-perfused. No calf tenderness. 2+ pitting edema SKIN: well demarcated erythema below knee, warm to tough, diffuse pitting edema CBC, BMP 02/19/19 04:40 02/19/19 04:40 ASSESSMENT/PLAN: Patient is a 88 y/o female with a history of COPD on 3L O2, HFpEF, afib on eliquis, CAD, HTN, HLD, ESRD on dialysis (T, [place], Sat), and CVA who is admitted 2/2 to anasarca and shortness of breath. #SOB - 2/2 to anasarca, HFpEF, need for dialysis - CXR: congestion - ED discussed with Dr. Olea, patient to go to dialysis today - fluid restriction - monitor weight daily - held lasix and BP medication in anticipation of dialysis, would continue after dialysis if pressures permit #cellulitis of lower extremity - Keflex 250 BID, continue for 5 more days - continue lactobacillus #ESRD - patient to get dialysis today - patient given albumin - followed by Dr. Olea #afib - conitnue elliquis - hr controlled #COPD - patient on 2-3 L baseline - continue home medicatios #HLD - continue atorvastatin #GERD - continue protonix #DVT ppx - continue elliquis FEN - Low sodium diet -fluid restriction 1.5 L Dispo: monitor on med surg, can likely be DC after dialysis Visit type - Emergency Visit Emergency Visit: Yes ED Registration Date: 02/19/19 Care time: The patient presented to the Emergency Department on the above date and was hospitalized for further evaluation of their emergent condition. - New Patient This patient is new to me today: Yes Date on this admission: 02/20/19 - Critical Care Critical Care patient: No ATTENDING PHYSICIAN STATEMENT I saw and evaluated the patient. I reviewed the resident's note and discussed the case with the resident. I agree with the resident's findings and plan as documented. SUBJECTIVE: OBJECTIVE: ASSESSMENT AND PLAN:
[2019-02-19] MEDS ORDERED: APIXABAN 2.5 MG TABLET PO SCH ×2 (10:00→10:30)
[2019-02-19] MEDS ORDERED: PATIENT'S OWN MEDICATION (NON-FORMULARY) (Fluticasone/Salmeterol [Advair Hfa 230-21 Mcg In IH SCH (10:00)
[2019-02-19] MEDS ORDERED: SODIUM CHLORIDE 250 ML IV PRN (10:37)
[2019-02-19] MEDS ORDERED: EPOETIN ALFA 10,000 UNIT/1 ML VIAL IVPUSH ONE (11:00)
[2019-02-19] MEDS: ALBUMIN HUMAN 25% 12.5 GM/50 ML VIAL IVPB SCH ×4 (11:00→13:00)
--- NOTE | 2019-02-19 13:19 | EKG ---
Test Reason : Blood Pressure : / mmHG Vent. Rate : 077 BPM Atrial Rate : 085 BPM P-R Int : 000 ms QRS Dur : 134 ms QT Int : 408 ms P-R-T Axes : 000 057 246 degrees QTc Int : 461 ms ATRIAL FIBRILLATION WITH FREQUENT ventricular-paced complexes NON-SPECIFIC INTRA-VENTRICULAR CONDUCTION BLOCK CANNOT RULE OUT ANTERIOR INFARCT , AGE UNDETERMINED T WAVE ABNORMALITY, CONSIDER INFEROLATERAL ISCHEMIA ABNORMAL ECG WHEN COMPARED WITH ECG OF 13-FEB-2019 03:16, PREMATURE VENTRICULAR COMPLEXES ARE NO LONGER PRESENT VENT. RATE HAS DECREASED BY 3 BPM Confirmed by JUSTEN THIBODEAUX MD ([id number]) on 02/19/2019 1:19:13 PM Referred By: Confirmed By:JUSTEN THIBODEAUX MD
--- NOTE | 2019-02-19 14:55 | CONSULT ---
Consult Consult Specialty:: Nephrology Reason for Consultation:: ESRD - History of Present Illness Chief Complaint: shortness of breath History of Present Illness: Please see H and P from last hospitalization. Pt is an 88 year old female who was discharged yesterday. She returned to ER overnight for shortness of breath. She is due for HD today. SHe was dialyzed the last 2 days in a row. She is not compliant with fluid intake. 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 No: Sleep Apnea Gastrointestinal: Yes: GERD Renal/: Yes: Renal Inusuff - Alcohol/Substance Use Hx Alcohol Use: No - Smoking History Smoking history: Former smoker Have you smoked in the past 12 months: No Aproximately how many cigarettes per day: 0 If you are a former smoker, when did you quit?: 1994 Home Medications - Allergies Allergies/Adverse Reactions: Allergies Allergy/AdvReac Type Severity Reaction Status Date / Time aspirin Allergy Verified 02/19/19 04:35 - Home Medications Home Medications: Ambulatory Orders Apixaban [Eliquis] 2.5 tab PO BID 05/22/17 Fluticasone/Salmeterol [Advair Hfa 230-21 Mcg Inhaler] 12 gm IH DAILY 05/22/17 Omeprazole 40 mg PO DAILY 05/22/17 Simvastatin 40 mg PO DAILY 05/22/17 Tiotropium [place] [Spiriva] 2.5 mcg IH BID 05/22/17 Diltiazem Cd [Cardizem Cd -] 120 mg PO DAILY 30 Days #30 cap.cd.24h 01/26/19 Metoprolol Succinate [Toprol Xl] 50 mg PO BID 30 Days #60 tab.er.24h 01/26/19 Albuterol Sulfate Inhaler - [Ventolin HFA Inhaler -] 180 mcg IH Q4H PRN Cephalexin Monohydrate [Keflex -] 250 mg PO BID 5 Days #10 capsule 02/18/19 Furosemide 80 mg PO ASDIR #30 tablet 02/18/19 Lactobacillus Acidophilus [Bacid -] 1 each PO DAILY 7 Days #7 capsule 02/18/19 Family Medical History Family History: Denies Review of Systems - Review of Systems Constitutional: reports: Malaise Physical Exam Vital Signs: Vital Signs Temperature 97.6 F 02/19/19 10:25 Pulse Rate 74 02/19/19 13:30 Respiratory Rate 16 02/19/19 13:30 Blood Pressure 107/59 L 02/19/19 13:30 O2 Sat by Pulse Oximetry (%) 100 02/19/19 09:31 Constitutional: Yes: Calm Eyes: Yes: Conjunctiva Clear HENT: Yes: Atraumatic Neck: Yes: Supple Cardiovascular: Yes: S1, S2 Respiratory: Yes: On Nasal O2 Gastrointestinal: Yes: Normal Bowel Sounds, Soft Musculoskeletal: Yes: WNL Edema: Yes Edema: LLE: 2+, RLE: 2+ Neurological: Yes: Oriented Labs: CBC, BMP 02/19/19 04:40 02/19/19 04:40 Imaging - Results Chest X-ray: Report Reviewed Assessment/Plan Current Medications Generic Name Dose Route Start Last Admin Trade Name Freq PRN Reason Stop Dose Admin Albuterol Sulfate 1 puff 02/19/19 10:30 Ventolin Hfa Inhaler - IH Q4H PRN SHORT OF BREATH/WHEEZING Apixaban 2.5 mg 02/19/19 10:30 Eliquis - PO BID KESHAWN Atorvastatin Calcium 20 mg 02/19/19 22:00 Lipitor - PO HS KESHAWN Cephalexin HCl 250 mg 02/19/19 10:00 Keflex - PO BID KESHAWN Sodium Chloride 250 mls @ 3,000 mls/hr 02/19/19 10:37 Normal Saline - IV 02/20/19 10:36 PRN PRN Hypotension during Dialysis Lactobacillus Acidophilus 1 tab 02/19/19 10:00 Bacid - PO DAILY KESHAWN Non-Formulary Medication 12 gm 02/19/19 10:00 Fluticasone/Salmeterol [Advair Hfa 230-21 Mcg Inhaler] IH DAILY KESHAWN Pantoprazole Sodium 40 mg 02/19/19 10:00 Protonix - PO DAILY KESHAWN Tiotropium [place] 2 puff 02/19/19 10:00 Spiriva Respimat IH DAILY KESHAWN Impression 1. ESRD 2. CHF 3. COPD 4. asthma 5. dyspnea 6. HTN 7. a-fib 8. fluid overload 9. CAD 10. cellulitis Plan - HD today - renal diet - restrict fluids - next HD on Sat, has HD set up as outpt - 80 mg of lasix on non HD days - elevate legs - abx for cellulitis
[2019-02-19] MEDS ORDERED: ALBUTEROL SO4 0.083% IH SOL 2.5 MG/3 ML VIAL.NEB. NEB PRN (15:36)
[2019-02-19 15:45] VITALS: BMI 40.8
[2019-02-19] MEDS: CEPHALEXIN MONOHYDRATE 250 MG CAPSULE (FP) PO SCH ×2 (15:52→23:10)
[2019-02-19] MEDS: PANTOPRAZOLE 40 MG TABLET (FP) PO SCH (15:52)
[2019-02-19] MEDS: LACTOBACILLUS ACIDOPHILUS 1 TABLET PO SCH (15:52)
[2019-02-19] MEDS: TIOTROPIUM BROMIDE 2.5 MCG (SPIRIVA) RESPIMAT INHALER IH SCH (15:52)
--- NOTE | 2019-02-19 16:28 | PN ---
Teaching Attending Note Name of Resident: Margret Christensen ATTENDING PHYSICIAN STATEMENT I saw and evaluated the patient. I reviewed the resident's note and discussed the case with the resident. I agree with the resident's findings and plan as documented with exceptions below. SUBJECTIVE: 88 yof with PMhx of CKD stage V, transiently on HD in , discharged on lasix, planned for outpatient HD at [facility], but missed her session, concern for lasix non compliance chronic hypoxic/hypercapneic resp failure/COPD on 3L home O2, chronic diastolic HF, A-fib on eliquis has pacemaker, CAD, HTN, chronic LBBB, HLD, CVA, recurrent admissions to different facilities for CHF, non compliance with HD, fluids, diet, d/noel yesterday comes back with worsening breathing. Was placed on bipap in ED and s/p HD with 3L fluid removal with improvement. OBJECTIVE: Vital Signs Period Temp Pulse Resp BP Sys/Perez Pulse Ox Last 24 Hr 97.3 F-97.7 F 71-101 14-22 87-144/49-82 95-100 Intake & Output 02/16/19 02/17/19 02/18/19 02/19/19 23:59 23:59 23:59 23:59 Intake Total 500 Output Total 2400 Balance -1900 Weight 189 lb GENERAL: Awake, alert, oriented to self place, place, mild tachypnea, use of accessory muscles of respiration HEAD: Normal with no signs of trauma. EYES: Pupils equal, round and reactive to light, extraocular movements intact, sclera anicteric, conjunctiva clear. No lid lag. EARS, NOSE, THROAT: Ears normal, nares patent, oropharynx clear without exudates. Moist mucous membranes. NECK: Normal range of motion, supple , pos neck vein distesnsion LUNGS: bibasilar till mid lung fine rales, no wheezing, pos air entry HEART: Regular rate and rhythm, normal S1 and S2 ABDOMEN: Soft, distended, NT, pos bowel sounds MUSCULOSKELETAL: Normal range of motion at all joints. No bony deformities or tenderness. No CVA tenderness. UPPER EXTREMITIES: 2+ pulses, warm, well-perfused. No cyanosis. No clubbing. No peripheral edema. LOWER EXTREMITIES: 2+ pedal pitting edema NEUROLOGICAL: AAOx2, Cranial nerves II-XII intact. Normal speech.gait not observed PSYCHIATRIC: Cooperative. Good eye contact. Appropriate mood and affect. SKIN: Warm, dry, normal turgor, no rashes or lesions noted, normal capillary refill. Home Medications Medication Instructions Recorded Apixaban [Eliquis] 2.5 tab PO BID 05/22/17 Fluticasone/Salmeterol [Advair Hfa 12 gm IH DAILY 05/22/17 230-21 Mcg Inhaler] Omeprazole 40 mg PO DAILY 05/22/17 Simvastatin 40 mg PO DAILY 05/22/17 Tiotropium [place] [Spiriva] 2.5 mcg IH BID 05/22/17 Diltiazem Cd [Cardizem Cd -] 120 mg PO DAILY 30 Days #30 01/26/19 cap.cd.24h Metoprolol Succinate [Toprol Xl] 50 mg PO BID 30 Days #60 tab.er.24h 01/26/19 Albuterol Sulfate Inhaler - 180 mcg IH Q4H PRN 02/14/19 [Ventolin HFA Inhaler -] Cephalexin Monohydrate [Keflex -] 250 mg PO BID 5 Days #10 capsule 02/18/19 Furosemide 80 mg PO ASDIR #30 tablet 02/18/19 Lactobacillus Acidophilus [Bacid -] 1 each PO DAILY 7 Days #7 capsule 02/18/19 Active Medications Albuterol Sulfate (Ventolin 0.083% Nebulizer Soln -) 1 amp NEB Q4H PRN PRN Reason: SHORT OF BREATH/WHEEZING Apixaban (Eliquis -) 2.5 mg PO BID [facility] Atorvastatin Calcium (Lipitor -) 20 mg PO HS KESHAWN Cephalexin HCl (Keflex -) 250 mg PO BID [facility] Last Admin: 02/19/19 15:52 Dose: Not Given Furosemide (Lasix -) 80 mg PO DAILY [facility] Sodium Chloride (Normal Saline -) 250 mls @ 3,000 mls/hr IV PRN PRN PRN Reason: Hypotension during Dialysis Stop: 02/20/19 10:36 Lactobacillus Acidophilus (Bacid -) 1 tab PO DAILY [facility] Last Admin: 02/19/19 15:52 Dose: Not Given Non-Formulary Medication (Fluticasone/Salmeterol [Advair Hfa 230-21 Mcg Inhaler] ) 12 gm IH DAILY [facility] Pantoprazole Sodium (Protonix -) 40 mg PO DAILY [facility] Last Admin: 02/19/19 15:52 Dose: Not Given Tiotropium [place] (Spiriva Respimat) 2 puff IH DAILY [facility] Last Admin: 02/19/19 15:52 Dose: Not Given Laboratory Results - last 24 hr 02/19/19 02/19/19 02/19/19 04:10 04:40 04:40 WBC RBC Hgb Hct MCV MCH MCHC RDW Plt Count MPV Absolute Neuts (auto) Neutrophils % Lymphocytes % Monocytes % Eosinophils % Basophils % Nucleated RBC % PT with INR INR PTT (Actin FS) 33.8 Anticoagulation Therapy Puncture Site ABG pH ABG pCO2 at Pt Temp ABG pO2 at Pt Temp ABG HCO3 ABG O2 Sat (Measured) ABG O2 Content ABG Base Excess Ankit Test VBG pH POC VBG pCO2 POC VBG pO2 VBG HCO3 VBG O2 Sat (Daniella) VBG Base Excess Carboxyhemoglobin Methemoglobin O2 Delivery Device Oxygen Flow Rate Vent Mode Vent Rate Mechanical Rate Pressure Support Vent Sodium 139 Potassium 4.0 Chloride 102 Carbon Dioxide 29 Anion Gap 7 L BUN 25.4 H Creatinine 2.7 H Est GFR (CKD-EPI)AfAm 17.78 Est GFR (CKD-EPI)NonAf 15.34 Random Glucose 92 Lactic Acid 1.8 Calcium 9.2 Magnesium 1.8 Total Bilirubin 0.8 AST 26 ALT 10 L Alkaline Phosphatase 118 H Creatine Kinase 41 Troponin I 0.02 B-Natriuretic Peptide 7027.9 H Total Protein 6.8 Albumin 3.3 L Blood Type Antibody Screen 02/19/19 02/19/19 02/19/19 04:40 04:40 04:40 WBC 7.7 RBC 3.43 L Hgb 9.1 L Hct 30.0 L MCV 87.5 MCH 26.4 MCHC 30.2 L RDW 19.2 H Plt Count 168 MPV 7.9 Absolute Neuts (auto) 5.0 Neutrophils % 64.9 Lymphocytes % 17.7 Monocytes % 15.2 H Eosinophils % 0.8 Basophils % 1.4 Nucleated RBC % 0 PT with INR 24.90 H INR 2.09 H PTT (Actin FS) Anticoagulation Therapy Puncture Site ABG pH ABG pCO2 at Pt Temp ABG pO2 at Pt Temp ABG HCO3 ABG O2 Sat (Measured) ABG O2 Content ABG Base Excess Ankit Test VBG pH POC VBG pCO2 POC VBG pO2 VBG HCO3 VBG O2 Sat (Daniella) VBG Base Excess Carboxyhemoglobin Methemoglobin O2 Delivery Device Oxygen Flow Rate Vent Mode Vent Rate Mechanical Rate Pressure Support Vent Sodium Potassium Chloride Carbon Dioxide Anion Gap BUN Creatinine Est GFR (CKD-EPI)AfAm Est GFR (CKD-EPI)NonAf Random Glucose Lactic Acid Calcium Magnesium Total Bilirubin AST ALT Alkaline Phosphatase Creatine Kinase Troponin I B-Natriuretic Peptide Total Protein Albumin Blood Type O POSITIVE Antibody Screen Negative 02/19/19 02/19/19 04:40 07:06 WBC RBC Hgb Hct MCV MCH MCHC RDW Plt Count MPV Absolute Neuts (auto) Neutrophils % Lymphocytes % Monocytes % Eosinophils % Basophils % Nucleated RBC % PT with INR INR PTT (Actin FS) Anticoagulation Therapy No Result Required. Puncture Site Right radial ABG pH 7.38 ABG pCO2 at Pt Temp 46.4 H ABG pO2 at Pt Temp 108 H ABG HCO3 26.5 ABG O2 Sat (Measured) 98.2 H ABG O2 Content 11.9 ABG Base Excess 1.6 Ankit Test Positive VBG pH 7.33 POC VBG pCO2 59.4 H POC VBG pO2 < 49 H VBG HCO3 30.3 H VBG O2 Sat (Danielal) 32.2 L VBG Base Excess 4.0 H Carboxyhemoglobin 1.5 Methemoglobin < 1.0 O2 Delivery Device Bipap Oxygen Flow Rate 35% Vent Mode No Result Required. Vent Rate 14 Mechanical Rate No Result Required. Pressure Support Vent 10/5 Sodium Potassium Chloride Carbon Dioxide Anion Gap BUN Creatinine Est GFR (CKD-EPI)AfAm Est GFR (CKD-EPI)NonAf Random Glucose Lactic Acid Calcium Magnesium Total Bilirubin AST ALT Alkaline Phosphatase Creatine Kinase Troponin I B-Natriuretic Peptide Total Protein Albumin Blood Type Antibody Screen ASSESSMENT AND PLAN: 88 yof with PMhx of CKD stage V, transiently on HD in , discharged on lasix, planned for outpatient HD at [facility], but missed her session, concern for lasix non compliance chronic hypoxic/hypercapneic resp failure/COPD on 3L home O2, chronic diastolic HF, A-fib on eliquis has pacemaker, CAD, HTN, chronic LBBB, HLD, CVA recurrent admissions to different facilities for CHF, non compliance with HD, fluids, diet, d/noel yesterday comes back with worsening breathing. -Acute on chronic diastolic heart failure exacerbation, suspect from missing HD session/dietary/medication/fluid non compliance -Acute on chronic hypoxic/hypercapneic respiratory failure, from above -ESRD now on HD -Atrial Fibrillation with RVR, from above vs underyling etiology for recurrent CHF. -LE Cellulitis vs contact dermatitis -COPD on 3 L home oxygen -Afib on eliquis, s/p PPM -Iron deficiency anemia -CAD -HTN -HLD -CVA Plan: S/p 3 L fluid removal with HD. Continue HD. lasix on non HD Aggressive education on dietary/medication/HD compliance. Fluid restriction Daily weights. Diltiazem/Toprol XL as hemodynamics permit Nutrition consult to address CHF education/diet. Keflex from recent admit Cont eliquis Recent 2D echo noted. s/p IV iron on recent admission, monitor h/h. Needs correction plan to address compliance and avoid recurrent admissions. Social work consult. Dispo admit to inpatient. Discussed with patient, nursing and nephrology.
[2019-02-19] MEDS ORDERED: ATORVASTATIN CA 20 MG TABLET (FP) PO SCH (22:00)
[2019-02-19] MEDS ORDERED: PT OWN MED DRAWER 7, Y5N ONE (22:03)
[2019-02-19] MEDS: APIXABAN 2.5 MG TABLET PO SCH (22:06)
[2019-02-20 06:09] VITALS: TEMP 98.2
[2019-02-20 08:26] LABS: BASO % 1.3 % (0-2.0); HEMATOCRIT 29.8 % (32.4-45.2); LYMPH % 13.4 % (8-40); MCH 26.8 pg (25.7-33.7); MCHC 30.1 g/dl (32.0-36.0); MEAN CELL VOLUME 89.2 fl (80-96); MEAN PLT VOLUME 8.3 fl (7.5-11.1); MONO % 13.3 % (3.8-10.2); PLATELET COUNT 165 K/MM3 (134-434); RBC 3.34 M/mm3 (3.60-5.2); RDW 19.5 % (11.6-15.6); WHITE BLOOD COUNT 8.6 K/mm3 (4.0-10.0)
[2019-02-20 09:02] LABS: ALBUMIN 3.8 g/dl (3.4-5.0); BLOOD UREA NITROGEN 25.4 mg/dL (7-18); CALCIUM 9.2 mg/dL (8.5-10.1); CREATININE 2.8 mg/dL (0.55-1.3); MAGNESIUM 1.8 mg/dL (1.8-2.4); PHOSPHOROUS 2.9 mg/dL (2.5-4.9); POTASSIUM 3.6 mmol/L (3.5-5.1)
[2019-02-20] MEDS ORDERED: FUROSEMIDE 40 MG TABLET (FP) PO SCH (10:00)
[2019-02-20] MEDS: LACTOBACILLUS ACIDOPHILUS 1 TABLET PO SCH (10:59)
[2019-02-20] MEDS: APIXABAN 2.5 MG TABLET PO SCH (11:03)
[2019-02-20] MEDS: PANTOPRAZOLE 40 MG TABLET (FP) PO SCH (11:03)
[2019-02-20] MEDS: TIOTROPIUM BROMIDE 2.5 MCG (SPIRIVA) RESPIMAT INHALER IH SCH (11:04)
[2019-02-20] MEDS: CEPHALEXIN MONOHYDRATE 250 MG CAPSULE (FP) PO SCH (11:04)
[2019-02-20 12:39] VITALS: BP 104/56; PULSE 102
--- NOTE | 2019-02-20 13:06 | PN ---
Teaching Attending Note Name of Resident: Samantha Dash ATTENDING PHYSICIAN STATEMENT I saw and evaluated the patient. I reviewed the resident's note and discussed the case with the resident. I agree with the resident's findings and plan as documented with exceptions below. SUBJECTIVE: patient seen and examined, breathing better, no complaints. OBJECTIVE: Vital Signs Period Temp Pulse Resp BP Sys/Perez Pulse Ox Last 24 Hr 97.5 F-98.2 F 74-102 16-22 104-144/49-82 94-100 Intake & Output 02/17/19 02/18/19 02/19/19 02/20/19 23:59 23:59 23:59 23:59 Intake Total 820 510 Output Total 2400 Balance -1580 510 Weight 189 lb 142 lb 6 oz General: improved breath Neck: improved vein distension Chest: few basilar rales, improved air entry Abdomen:soft, NT Extremities: 2+ pitting edema with unchanged erythema, sharply demarcated, improved peeling Home Medications Medication Instructions Recorded Apixaban [Eliquis] 2.5 tab PO BID 05/22/17 Fluticasone/Salmeterol [Advair Hfa 12 gm IH DAILY 05/22/17 230-21 Mcg Inhaler] Omeprazole 40 mg PO DAILY 05/22/17 Simvastatin 40 mg PO DAILY 05/22/17 Tiotropium [place] [Spiriva] 2.5 mcg IH BID 05/22/17 Diltiazem Cd [Cardizem Cd -] 120 mg PO DAILY 30 Days #30 01/26/19 cap.cd.24h Metoprolol Succinate [Toprol Xl] 50 mg PO BID 30 Days #60 tab.er.24h 01/26/19 Albuterol Sulfate Inhaler - 180 mcg IH Q4H PRN 02/14/19 [Ventolin HFA Inhaler -] Cephalexin Monohydrate [Keflex -] 250 mg PO BID 5 Days #10 capsule 02/18/19 Furosemide 80 mg PO ASDIR #30 tablet 02/18/19 Lactobacillus Acidophilus [Bacid -] 1 each PO DAILY 7 Days #7 capsule 02/18/19 ASSESSMENT AND PLAN: 88 yof with PMhx of CKD stage V, transiently on HD in , discharged on lasix, planned for outpatient HD at [facility], but missed her session, concern for lasix non compliance chronic hypoxic/hypercapneic resp failure/COPD on 3L home O2, chronic diastolic HF, A-fib on eliquis has pacemaker, CAD, HTN, chronic LBBB, HLD, CVA recurrent admissions to different facilities for CHF, non compliance with HD, fluids, diet, d/noel yesterday comes back with worsening breathing. -Acute on chronic diastolic heart failure exacerbation, suspect from missing HD session/dietary/medication/fluid non compliance -Acute on chronic hypoxic/hypercapneic respiratory failure, from above -ESRD now on HD -Atrial Fibrillation with RVR, from above vs underyling etiology for recurrent CHF. -LE Cellulitis vs contact dermatitis -COPD on 3 L home oxygen -Afib on eliquis, s/p PPM -Iron deficiency anemia -CAD -HTN -HLD -CVA Plan: Doing well For outpatient HD tomorrow Grandson at bedside Patient and family seem to have poor insight into dietary, fluid compliance. Educated again in detail about sodium/fluid restriction to patient and grandson Also need for compliance with HD to avoid recurrent admissions. They relay understanding and agree to comply Outpatient HD tomorrow arranged d/c home today, discussed with social work.
--- NOTE | 2019-02-20 14:36 | DS ---
Physical Exam: SUBJECTIVE: Patient seen and examined. She reports shortness of breath and itching of lower extremities. She denies chest pain, n/v/d. OBJECTIVE: Vital Signs Period Temp Pulse Resp BP Sys/Perez Pulse Ox Last 24 Hr 97.8 F-98.2 F 80-102 20-22 104-116/56-67 94-99 PHYSICAL EXAM GENERAL: The patient is awake, alert, and fully oriented, in no acute distress. HEAD: Normal with no signs of trauma. EYES: PERRL, extraocular movements intact ENT: Ears normal, nares patent, moist mucous membranes. NECK: Trachea midline LUNGS: Breath sounds equal, clear to auscultation bilaterally, no wheezes or crackles HEART: Regular rate and rhythm, no murmur ABDOMEN: Soft, nontender, distended, normoactive bowel sounds EXTREMITIES: sharply demarcated area of erythema in bilateral extremities below knees NEUROLOGICAL: Normal speech PSYCH: Normal mood, normal affect. SKIN: Warm, dry, normal turgor LABS Laboratory Results - last 24 hr 02/20/19 02/20/19 07:45 07:45 WBC 8.6 RBC 3.34 L Hgb 9.0 L Hct 29.8 L MCV 89.2 MCH 26.8 MCHC 30.1 L RDW 19.5 H Plt Count 165 MPV 8.3 Absolute Neuts (auto) 6.1 Neutrophils % 71.0 Lymphocytes % 13.4 D Monocytes % 13.3 H Eosinophils % 1.0 Basophils % 1.3 Nucleated RBC % 0 Sodium 136 Potassium 3.6 Chloride 98 Carbon Dioxide 30 Anion Gap 9 BUN 25.4 H Creatinine 2.8 H Est GFR (CKD-EPI)AfAm 17.01 Est GFR (CKD-EPI)NonAf 14.68 Random Glucose 135 H Calcium 9.2 Phosphorus 2.9 Magnesium 1.8 Total Bilirubin 1.0 AST 22 ALT 10 L Alkaline Phosphatase 157 H Total Protein 7.0 Albumin 3.8 HOSPITAL COURSE: Ms. Owen is an 88 y/o female with diastolic CHF (non-compliant with diet), recent onset ESRD on HD TTS, paroxysmal a-fib s/p PPM on Eliquis, COPD (3L O2 at home), CAD, HTN, HLD, and CVA who presents with shortness of breath. She was discharged on 02/18/19 with Lasix 80mg on non-dialysis days and was instructed to continue routine HD on 02/19/19. She was SOB on presentation and persistent bilateral sharply demarcated erythema below the knees. No leukocytosis. Hemodynamically stable. CXR showed mild improvement in aeration, small amount of fluid at bases, not worse than CXR on 02/12/19. Doppler negative for DVTs bilaterally on previous admission. Pt was given IV Lasix. She was also continued on Keflex for possible cellulitis of LEs. She was discharged home and is to attend her regular session of HD tomorrow. Date of Admission:02/19/19 Date of Discharge: 02/20/19 Minutes to complete discharge: 35 Discharge Summary Problems reviewed: Yes Reason For Visit: PULMONARY EDEMA,ACUTE CHRONIC DIASTOLIC CHF Current Active Problems Acute on chronic diastolic CHF (congestive heart failure) (Acute) Acute respiratory failure (Acute) Erythema of lower extremity (Acute) Pulmonary edema (Acute) ESRD (end stage renal disease) (Chronic) Condition: Stable - Instructions Diet, Activity, Other Instructions: Hospital visit: You were admitted to the hospital for shortness of breath. You were given extra fluid pills. The redness on your legs were treated with antibiotics. You are able to go home and continue dialysis tomorrow as usual. Medications: TAKE LASIX 80MG ONCE A DAY ON DAYS YOU DO NOT HAVE DIALYSIS. DO NOT TAKE LASIX ON DIALYSIS DAYS. Continue all your other home medications like before. Keflex 250mg twice a day for 3 days (antibiotic) Bacid 1 pill once a day for 5 days. Take this at least 2 hours apart from Keflex. (probiotic) Follow up: Dr. Johnson, primary care, within 1 week of discharge to check your legs and the hemoglobin level in your blood. Dr. Barrios, nephology. Call his office tomorrow to make an appointment. Resume your normal dialysis schedule starting tomorrow at [facility]. Diet: It is important to eat a low salt diet and limit the amount of liquids you drink to 4 8oz cups a day. This will prevent fluid from building up in your body. Other instructions: Monitor your weight daily. If you notice a 2-3 pound weight gain in 4-5 days, call Dr. Johnson or Dr. Barrios. You can also go to the emergency room. Keep your legs elevated if possible to help the swelling in your legs. Return to the emergency room also if you have chest pain, difficulty breathing, or lightheadedness/dizziness or any new concerns. Referrals: Diaz Johnson MD [Primary Care Provider] - Michell Barrios MD [Staff Physician] - Disposition: [facility]/HOME HEALTH CARE - Home Medications Comprehensive Discharge Medication List: Ambulatory Orders Apixaban [Eliquis] 2.5 tab PO BID 05/22/17 Fluticasone/Salmeterol [Advair Hfa 230-21 Mcg Inhaler] 12 gm IH DAILY 05/22/17 Omeprazole 40 mg PO DAILY 05/22/17 Simvastatin 40 mg PO DAILY 05/22/17 Tiotropium [place] [Spiriva] 2.5 mcg IH BID 05/22/17 Diltiazem Cd [Cardizem Cd -] 120 mg PO DAILY 30 Days #30 cap.cd.24h 01/26/19 Metoprolol Succinate [Toprol Xl] 50 mg PO BID 30 Days #60 tab.er.24h 01/26/19 Albuterol Sulfate Inhaler - [Ventolin HFA Inhaler -] 180 mcg IH Q4H PRN Cephalexin Monohydrate [Keflex -] 250 mg PO BID 5 Days #10 capsule 02/18/19 Furosemide 80 mg PO ASDIR #30 tablet 02/18/19 Lactobacillus Acidophilus [Bacid -] 1 each PO DAILY 7 Days #7 capsule 02/18/19 This patient is new to me today: Yes Date on this admission: 02/20/19 Emergency Visit: Yes ED Registration Date: 02/19/19 Care time: The patient presented to the Emergency Department on the above date and was hospitalized for further evaluation of their emergent condition. Critical Care patient: No - Discharge Referral Referred to [facility] No ATTENDING PHYSICIAN STATEMENT I saw and evaluated the patient. I reviewed the resident's note and discussed the case with the resident. I agree with the resident's findings and plan as documented. SUBJECTIVE: OBJECTIVE: ASSESSMENT AND PLAN:
== END 2019-02-20 14:39 | disposition home health service (06) | DRG 291 ==
LOC: JER 03:51 → JERBED 06:16 → J6S 11:52
PROVIDERS: ADMIT Hospitalist; ATTEND Hospitalist
DX: I13.2 Hypertensive heart and chronic kidney disease with heart failure and with stage 5 chronic kidney disease, or end stage renal disease (principal); J81.0 Acute pulmonary edema; J96.21 Acute and chronic respiratory failure with hypoxia; J96.22 Acute and chronic respiratory failure with hypercapnia; N18.6 End stage renal disease; I50.33 Acute on chronic diastolic (congestive) heart failure; L03.116 Cellulitis of left lower limb; J44.9 Chronic obstructive pulmonary disease, unspecified; I25.10 Atherosclerotic heart disease of native coronary artery without angina pectoris; E78.5 Hyperlipidemia, unspecified; I48.0 Paroxysmal atrial fibrillation; E87.70 Fluid overload, unspecified; D50.9 Iron deficiency anemia, unspecified; I44.7 Left bundle-branch block, unspecified; K21.9 Gastro-esophageal reflux disease without esophagitis; Z95.0 Presence of cardiac pacemaker; Z99.81 Dependence on supplemental oxygen; I25.2 Old myocardial infarction; Z86.73 Personal history of transient ischemic attack (TIA), and cerebral infarction without residual deficits; Z91.19 Patient's noncompliance with other medical treatment and regimen
CPT/HCPCS: 36415; 36600; 71045-TC-FY; 80053; 82375; 82550; 82803; 83050; 83605; 83735; 83880; 84100; 84484; 85025; 85610; 85730; 86850; 86900; 86901; 93005; 93010; 94640; 94660; 99285-25; J0885; P9047

== ENCOUNTER 2019-02-24 21:03 | Inpatient (IN) | payer OTHER ==
--- NOTE | 2019-02-24 22:16 | PDOC ---
Attending Attestation - Resident Resident Name: Bandar Vaca - ED Attending Attestation I have performed the following: I have examined & evaluated the patient, The case was reviewed & discussed with the resident, I agree w/resident's findings & plan - HPI HPI: 02/25/19 00:52 see resident hpi - Physicial Exam PE: 02/25/19 00:52 agree with resident exam - Medical Decision Making 02/25/19 00:52 88-year-old female with shortness of breath and extensive past medical history including COPD and CHF, end-stage renal disease status status post dialysis earlier today Chest x-ray shows cardiomegaly with congestive changes EKG shows a paced rhythm with underlying A. fib Plan for ICU consultation, BiPAP initiated due to increased work of breathing, patient will not likely tolerate Lasix/nitrates secondary to borderline blood pressure Nephrology consult for probable dialysis in the morning
[2019-02-24 22:42] VITALS: BMI 28.1
[2019-02-24 23:54] LABS: BASO % 1.3 % (0-2.0); EOS % 1.7 % (0-4.5); HEMATOCRIT 28.8 % (32.4-45.2); HEMOGLOBIN 8.7 GM/dL (10.7-15.3); MCH 26.3 pg (25.7-33.7); MCHC 30.3 g/dl (32.0-36.0); MEAN CELL VOLUME 86.6 fl (80-96); MEAN PLT VOLUME 8.5 fl (7.5-11.1); MONO % 11.6 % (3.8-10.2); NEUT % 72.4 % (42.8-82.8); PLATELET COUNT 181 K/MM3 (134-434); RBC 3.33 M/mm3 (3.60-5.2); RDW 21.5 % (11.6-15.6); WHITE BLOOD COUNT 7.1 K/mm3 (4.0-10.0)
--- NOTE | 2019-02-25 00:04 | PDOC ---
History of Present Illness - General Chief Complaint: Shortness of Breath Stated Complaint: DIFFICULTY BREATHING Time Seen by Provider: 02/24/19 22:16 History Source: Patient Exam Limitations: No Limitations - History of Present Illness Initial Comments: 02/25/19 00:04 88 y/o female with a history of COPD on 3L O2, HFpEF, afib on eliquis, CAD, HTN , HLD, ESRD on dialysis (T, [facility], Sat), and CVA who presents to the emergency department with SOB since yesterday night. Per the patient, she states she has difficulty sleeping due to the shortness of breath. In addition, she states she feels chest tightness concurrent with her respiratory symptoms. She was recently admitted in the previous week for shortness of breath with a clinical course including IV lasix. The patient denies the following: fever, chills, nausea, vomiting, lightheadedness, abdominal pain, and diarrhea. Unable to make urine and has bilateral LE edema with worsening swelling. Allergies: aspirin Past History - Past Medical History Allergies/Adverse Reactions: Allergies Allergy/AdvReac Type Severity Reaction Status Date / Time aspirin Allergy Verified 02/24/19 22:50 Home Medications: Ambulatory Orders Fluticasone/Salmeterol [Advair Hfa 230-21 Mcg Inhaler] 12 gm IH DAILY 05/22/17 Omeprazole 40 mg PO DAILY 05/22/17 Simvastatin 40 mg PO DAILY 05/22/17 Tiotropium [place] [Spiriva] 2.5 mcg IH BID 05/22/17 Diltiazem Cd [Cardizem Cd -] 120 mg PO DAILY 30 Days #30 cap.cd.24h 01/26/19 Metoprolol Succinate [Toprol Xl] 50 mg PO BID 30 Days #60 tab.er.24h 01/26/19 Albuterol Sulfate Inhaler - [Ventolin HFA Inhaler -] 180 mcg IH Q4H PRN Furosemide 80 mg PO ASDIR #30 tablet 02/18/19 Lactobacillus Acidophilus [Bacid -] 1 each PO DAILY 7 Days #7 capsule 02/18/19 Apixaban [Eliquis -] 2.5 mg PO BID tablet 02/25/19 Anemia: No Asthma: Yes Cancer: No Cardiac Disorders: Yes (AF, PPM, CAD, [place]) CVA: Yes COPD: Yes CHF: Yes Dementia: No Diabetes: No GI Disorders: Yes (GASTRITIS) Disorders: No HTN: Yes Hypercholesterolemia: Yes Liver Disease: No Seizures: No Thyroid Disease: No - Surgical History Abdominal Surgery: No Appendectomy: No Cardiac Surgery: Yes (PACEMAKER) Cholecystectomy: No Lung Surgery: No Neurologic Surgery: No Orthopedic Surgery: No - Immunization History Td Vaccination: No TDAP Vaccination: No Immunization Up to Date: No - Psycho Social/Smoking Cessation Hx Smoking Status: Yes Smoking History: Former smoker Have you smoked in the past 12 months: No Number of Cigarettes Smoked Daily: 0 If you are a former smoker, when did you quit?: 25 years ago Information on smoking cessation initiated: No 'Breaking Loose' booklet given: 11/04/18 Hx Alcohol Use: No Drug/Substance Use Hx: No Substance Use Type: None Hx Substance Use Treatment: No Review of Systems - Review of Systems Able to Perform ROS?: Yes Is the patient limited Cam[place]onian proficient: No Constitutional: Yes: Weakness. No: Chills, Diaphoresis, Fever HEENTM: No: Eye Pain, Ear Pain, Nose Pain, Throat Pain, Mouth Pain Respiratory: Yes: Shortness of Breath. No: Cough, Hemoptysis Cardiac (ROS): Yes: Edema, Chest Tightness. No: Chest Pain, Lightheadedness, Palpitations, Syncope ABD/GI: No: Constipated, Diarrhea, Nausea, Rectal Bleeding, Vomiting, Tarry Stools : No: Burning, Dysuria, Hematuria Musculoskeletal: No: Back Pain, Joint Pain, Neck Pain Integumentary: Yes: Erythema. No: Bruising, Sweating Neurological: No: Headache, Numbness, Tingling, Tremors Psychiatric: No: Change in Appetite Endocrine: No: Unexplained Weight Gain Hematologic/Lymphatic: No: Anemia *Physical Exam - Vital Signs Last Vital Signs Temp Pulse Resp BP Pulse Ox 97.6 F 64 16 101/53 L 100 02/24/19 21:10 02/24/19 21:10 02/24/19 21:10 02/24/19 21:10 02/24/19 21:10 - Physical Exam General Appearance: Yes: Nourished, Appropriately Dressed, Obese. No: Apparent Distress, Intoxicated HEENT: positive: EOMI, JANETT, Normal Voice, Symmetrical, Pharynx Normal, Hearing Grossly Normal. negative: Pale Conjunctivae, Scleral Icterus (R), Scleral Icterus (L), Muffled/Hoarse voice, Pharyngeal Erythema, Tonsillar Exudate Neck: positive: Trachea midline, Supple. negative: Tender, Lymphadenopathy (R) , Lymphadenopathy (L), Tender lateral, Tender midline Respiratory/Chest: positive: Lungs Clear, Decreased Breath Sounds. negative: Chest Tender, Normal Breath Sounds, Respiratory Distress, Accessory Muscle Use, Crackles, Rales, Rhonchi, Stridor, Wheezing Cardiovascular: positive: Regular Rhythm, Regular Rate, S1, S2. negative: Systolic Murmur Gastrointestinal/Abdominal: positive: Normal Bowel Sounds, Flat, Soft. negative : Tender Lymphatic: negative: Adenopathy Musculoskeletal: positive: Normal Inspection. negative: CVA Tenderness, Vertebral Tenderness Extremity: positive: Normal Capillary Refill, Normal Range of Motion, Pedal Edema (3+ pitting edema bilaterally with erythema demarcation on the legs bilaterally), Swelling. negative: Tender Integumentary: positive: Normal Color, Dry, Warm. 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 NML intact, Fully Oriented, Alert, Normal Mood/ Affect, Normal Response, Motor Strength / ED Treatment Course - LABORATORY CBC & Chemistry Diagram: 02/26/19 07:15 02/26/19 07:15 - ADDITIONAL ORDERS Additional order review: 02/24/19 23:42 RBC 3.33 L MCV 86.6 MCHC 30.3 L RDW 21.5 H MPV 8.5 Neutrophils % 72.4 Lymphocytes % 13.0 Monocytes % 11.6 H Eosinophils % 1.7 Basophils % 1.3 - RADIOLOGY Radiology Studies Ordered: Category Date Time Status CHEST X-RAY PORTABLE* [RAD] Stat Radiology 02/24/19 23:04 Taken Medical Decision Making - Medical Decision Making 88 y/o female with a history of COPD on 3L O2, HFpEF, afib on eliquis, CAD, HTN , HLD, ESRD on dialysis (T, [facility], Sat), and CVA who presents to the emergency department with SOB since yesterday night. Initial vitals: Initial Vital Signs Temp Pulse Resp BP Pulse Ox 97.6 F 64 16 101/53 L 100 02/24/19 21:10 02/24/19 21:10 02/24/19 21:10 02/24/19 21:10 02/24/19 21:10 Work up: ddx: CHF vs COPD exacerbation vs ACS vs PNA Suspect the patient has hypervolemia after dialysis causing SOB. Laboratory Tests 02/24/19 02/24/19 02/24/19 23:42 23:42 23:42 WBC 7.1 RBC 3.33 L Hgb 8.7 L Hct 28.8 L MCV 86.6 MCH 26.3 MCHC 30.3 L RDW 21.5 H Plt Count 181 MPV 8.5 Absolute Neuts (auto) 5.1 Neutrophils % 72.4 Lymphocytes % 13.0 Monocytes % 11.6 H Eosinophils % 1.7 Basophils % 1.3 Nucleated RBC % 0 PT with INR 17.20 H INR 1.45 H Anticoagulation Therapy Puncture Site ABG pH ABG pCO2 at Pt Temp ABG pO2 at Pt Temp ABG HCO3 ABG O2 Sat (Measured) ABG O2 Content ABG Base Excess Ankit Test Carboxyhemoglobin Methemoglobin O2 Delivery Device Oxygen Flow Rate Vent Mode Vent Rate Mechanical Rate Pressure Support Vent Sodium 134 L Potassium 4.1 Chloride 97 L Carbon Dioxide 25 Anion Gap 12 BUN 32.9 H Creatinine 3.6 H Est GFR (CKD-EPI)AfAm 12.56 Est GFR (CKD-EPI)NonAf 10.83 Random Glucose 94 Calcium 8.8 Total Bilirubin 1.0 AST 29 ALT 9 L Alkaline Phosphatase 108 Creatine Kinase 82 Troponin I 0.02 B-Natriuretic Peptide 6194.4 H Total Protein 6.4 Albumin 3.2 L 02/25/19 00:28 WBC RBC Hgb Hct MCV MCH MCHC RDW Plt Count MPV Absolute Neuts (auto) Neutrophils % Lymphocytes % Monocytes % Eosinophils % Basophils % Nucleated RBC % PT with INR INR Anticoagulation Therapy No Result Required. Puncture Site Right brachial ABG pH 7.39 ABG pCO2 at Pt Temp 41.9 ABG pO2 at Pt Temp 110 H ABG HCO3 24.5 ABG O2 Sat (Measured) 98.0 ABG O2 Content 11.9 ABG Base Excess 0.1 Ankit Test Positive Carboxyhemoglobin 1.9 Methemoglobin < 1.0 O2 Delivery Device N/c Oxygen Flow Rate 3lpm Vent Mode No Result Required. Vent Rate No Result Required. Mechanical Rate No Result Required. Pressure Support Vent No Result Required. Sodium Potassium Chloride Carbon Dioxide Anion Gap BUN Creatinine Est GFR (CKD-EPI)AfAm Est GFR (CKD-EPI)NonAf Random Glucose Calcium Total Bilirubin AST ALT Alkaline Phosphatase Creatine Kinase Troponin I B-Natriuretic Peptide Total Protein Albumin CXR shows congestive changes Labs show elevated BNP. Patient to be admitted for CHF exacerbation. A call was placed to her rn [facility]'s service (Dr. Perkins) at 12:18 am, 12:54 am, and 1:34 am. Patient was endorsed to admitting team. Patient to be admitted for CHF exacerbation with requirements of bipap due to severe SOB. 02/25/19 03:13 Discharge - Discharge Information Problems reviewed: Yes Clinical Impression/Diagnosis: FRYE (dyspnea on exertion), ESRD (end stage renal disease) Hyperlipidemia Qualifiers: Hyperlipidemia type: pure hypercholesterolemia Qualified Code(s): E78.00 - Pure hypercholesterolemia, unspecified Condition: Stable Disposition: HOME - Follow up/Referral - Patient Discharge Instructions - Post Discharge Activity
[2019-02-25 00:32] LABS: ALBUMIN 3.2 g/dl (3.4-5.0); BLOOD UREA NITROGEN 32.9 mg/dL (7-18); CALCIUM 8.8 mg/dL (8.5-10.1); CREATININE 3.6 mg/dL (0.55-1.3); N-TERMINAL BNP 6194.4 pg/ml (5-450); POTASSIUM 4.1 mmol/L (3.5-5.1); TOT PROT 6.4 g/dl (6.4-8.2)
[2019-02-25 00:36] LABS: INR 1.45 (0.83-1.09); PROTHROMBIN TIME (PATIENT) 17.2 SEC (9.7-13.0)
[2019-02-25 00:47] LABS: ARTERIAL BLOOD GAS BASE EXCESS 0.1 meq/l (-2-2); ARTERIAL BLOOD GAS PCO2 41.9 mmHg (35-45); ARTERIAL BLOOD GAS PO2 110 mmHg (80-100); ARTERIAL BLOOD GAS pH 7.39 (7.35-7.45); CARBOXYHEMOGLOBIN 1.9 % (0-2)
[2019-02-25 00:56] LABS: ALLENS TEST POSITIVE
--- NOTE | 2019-02-25 01:35 | CONSULT ---
Consultation: REQUESTING PROVIDER: Dr. Pyle CONSULT REQUEST: We have been asked to medically evaluate this patient for ICU admission for shortness of breath. HISTORY OF PRESENT ILLNESS: Patient is an 88 year old female with history of heart failure with preserved ejection fraction, end stage renal disease on hemodialysis (Saturday, , Saturday; right tunneled catheter), paroxysmal atrial fibrillation (on Eliquis) , past CVA, coronary artery disease, hypertension, hyperlpidemia, presents with complaint of shortness of breath. Of note, patient had had numerous admissions with similar presentation in the past months. Patient admits that she had her last hemodialysis session earlier today; tolerated full session. However, despite her session, patient endorsed worsening shortness of breath with chest tightness and bilateral lower extremity pain. Upon my encounter, patient is in no apparent distress, and able to speak in complete sentences wit her daughter at bedside. REVIEW OF SYSTEMS: CONSTITUTIONAL: Admits: generalized weakness. Absent: fever, chills, diaphoresis, malaise, loss of appetite, weight change HEENT: Absent: rhinorrhea, nasal congestion, throat pain, throat swelling, difficulty swallowing, mouth swelling, ear pain, eye pain, visual changes CARDIOVASCULAR: Admits: chest tightness. Absent: syncope, palpitations, irregular heart rate, lightheadedness, peripheral edema RESPIRATORY: Admits: shortness of breath, dyspnea with exertion. Absent: cough, orthopnea, wheezing, stridor, hemoptysis GASTROINTESTINAL: Absent: abdominal pain, abdominal distension, nausea, vomiting, diarrhea, constipation, melena, hematochezia GENITOURINARY: Absent: dysuria, frequency, urgency, hesitancy, hematuria, flank pain, genital pain MUSCULOSKELETAL: Absent: myalgia, arthralgia, joint swelling, back pain, neck pain SKIN: Absent: rash, itching, pallor HEMATOLOGIC/IMMUNOLOGIC: Absent: easy bleeding, easy bruising, lymphadenopathy, frequent infections ENDOCRINE: Absent: unexplained weight gain, unexplained weight loss, heat intolerance, cold intolerance NEUROLOGIC: Absent: headache, focal weakness or paresthesias, dizziness, unsteady gait, seizure, mental status changes, bladder or bowel incontinence PSYCHIATRIC: Absent: anxiety, depression, suicidal or homicidal ideation, hallucinations. PHYSICAL EXAMINATION Vital Signs - 24 hr 02/24/19 02/25/19 21:10 00:35 Temperature 97.6 F Pulse Rate 64 Respiratory 16 Rate Blood Pressure 101/53 L O2 Sat by Pulse 99 98 Oximetry (%) GENERAL: The patient is awake, alert, and fully oriented, in no acute distress. HEAD: Normocephalic, atraumatic. EYES: PERRL, extraocular movements intact, sclera anicteric, conjunctiva clear. ENT: Oropharynx clear, without erythema or exudates. Moist mucous membranes. NECK: Trachea midline, full range of motion. Supple without lymphadenopathy. LUNGS: Good inspiratory effort with poor air entry bilaterally. Diffuse crackles auscultated bilateral lower lobes. HEART: Irregular rate and rhythm, S1, S2 without murmur, rub or gallop. ABDOMEN: Soft, nondistended, nontender to light and deep palpation x4 quadrants , no rebound tenderness, no guarding. Normoactive bowel sounds x4 quadrants. no hepatosplenomegaly, no masses. EXTREMITIES: 2+ radial, dorsalis pedis pulses bilaterally. Warm, well-perfused. 2+ lower extremity edema bilaterally. NEUROLOGICAL: Cranial nerves II through XII grossly intact. Normal speech. No gross focal deficits. PSYCH: Normal mood, normal affect upon my encounter. SKIN: Warm, dry. Erythema along distal lower extremities bilaterally. Laboratory Results - last 24 hr 02/24/19 02/24/19 02/24/19 23:42 23:42 23:42 WBC 7.1 RBC 3.33 L Hgb 8.7 L Hct 28.8 L MCV 86.6 MCH 26.3 MCHC 30.3 L RDW 21.5 H Plt Count 181 MPV 8.5 Absolute Neuts (auto) 5.1 Neutrophils % 72.4 Lymphocytes % 13.0 Monocytes % 11.6 H Eosinophils % 1.7 Basophils % 1.3 Nucleated RBC % 0 PT with INR 17.20 H INR 1.45 H Anticoagulation Therapy Puncture Site ABG pH ABG pCO2 at Pt Temp ABG pO2 at Pt Temp ABG HCO3 ABG O2 Sat (Measured) ABG O2 Content ABG Base Excess Ankit Test Carboxyhemoglobin Methemoglobin O2 Delivery Device Oxygen Flow Rate Vent Mode Vent Rate Mechanical Rate Pressure Support Vent Sodium 134 L Potassium 4.1 Chloride 97 L Carbon Dioxide 25 Anion Gap 12 BUN 32.9 H Creatinine 3.6 H Est GFR (CKD-EPI)AfAm 12.56 Est GFR (CKD-EPI)NonAf 10.83 Random Glucose 94 Calcium 8.8 Total Bilirubin 1.0 AST 29 ALT 9 L Alkaline Phosphatase 108 Creatine Kinase 82 Troponin I 0.02 B-Natriuretic Peptide 6194.4 H Total Protein 6.4 Albumin 3.2 L 02/25/19 00:28 WBC RBC Hgb Hct MCV MCH MCHC RDW Plt Count MPV Absolute Neuts (auto) Neutrophils % Lymphocytes % Monocytes % Eosinophils % Basophils % Nucleated RBC % PT with INR INR Anticoagulation Therapy No Result Required. Puncture Site Right brachial ABG pH 7.39 ABG pCO2 at Pt Temp 41.9 ABG pO2 at Pt Temp 110 H ABG HCO3 24.5 ABG O2 Sat (Measured) 98.0 ABG O2 Content 11.9 ABG Base Excess 0.1 Ankit Test Positive Carboxyhemoglobin 1.9 Methemoglobin < 1.0 O2 Delivery Device N/c Oxygen Flow Rate 3lpm Vent Mode No Result Required. Vent Rate No Result Required. Mechanical Rate No Result Required. Pressure Support Vent No Result Required. Sodium Potassium Chloride Carbon Dioxide Anion Gap BUN Creatinine Est GFR (CKD-EPI)AfAm Est GFR (CKD-EPI)NonAf Random Glucose Calcium Total Bilirubin AST ALT Alkaline Phosphatase Creatine Kinase Troponin I B-Natriuretic Peptide Total Protein Albumin ASSESSMENT/PLAN: Heart failure with preserved ejection fraction End stage renal disease on hemodialysis Paroxysmal atrial fibrillation Past CVA Coronary artery disease, Hypertension Hyperlpidemia Neurological -Patient is awake, alert, oriented in no acute distress. Per daughter at bedside, patient is currently at her baseline. -Monitor for mental status changes. Cardiac Heart failure with preserved ejection fraction Paroxysmal atrial fibrillation Coronary artery disease, Hypertension Hyperlpidemia -EKG reveals atrial fibrillation at 74BPM with ventricular paced complex -Currently rate controlled. Home Cardizem, and Metoprolol with caution, as permited by hemodynamics -Continue Eliquis -Continue Simvastatin Pulmonary Acute on chronic respiratory failure -Chest radiograph reveals bilateral congestive changes, with alveolar infiltrates. Similar to study at prior admission. -Currently saturating well on BiLevel 12/6 at 40% FiO2, RR14. -ABG reveals no acidemia, no CO2 retention. Continue Bilevel ventilaton and wean as tolerated. Nephrologic End stage renal disease on hemodialysis -Recommend Nephrlogy consult (seen by Dr. Barrios in prior admissions). Patient may require additional sessions of hemodialysis. -Diuresis as permitted by hemodynamics FEN -No IV fluids indicated -Follow BMP -NPO while on Bilevel ventilation. Renal diet recommended subsequently. Prophylaxis -Patient is on Eliquis for atrial fibrillation Disposition Patient is currently saturating 100% on BiLevel ventilation, and speaking full sentences without distress. Vital signs currently stable, at patient's baseline. Recommend telemetry monitoring with continuos pulse oximetry. Please re-consult if any change in patient's clinical status. Thank you for this consultive opportunity. Visit type - Emergency Visit Emergency Visit: Yes ED Registration Date: 02/25/19 Care time: The patient presented to the Emergency Department on the above date and was hospitalized for further evaluation of their emergent condition. - New Patient This patient is new to me today: Yes Date on this admission: 02/25/19 - Critical Care Critical Care patient: Yes Total Critical Care Time (in minutes): 36 Critical Care Statement: The care of this patient involved high complexity decision making to prevent further life threatening deterioration of the patient 's condition and/or to evaluate & treat vital organ system(s) failure or risk of failure. ATTENDING PHYSICIAN STATEMENT I saw and evaluated the patient. I reviewed the resident's note and discussed the case with the resident. I agree with the resident's findings and plan as documented. SUBJECTIVE: OBJECTIVE: ASSESSMENT AND PLAN:
--- NOTE | 2019-02-25 02:15 | PN ---
Teaching Attending Note Name of Resident: Farida Dunn ATTENDING PHYSICIAN STATEMENT I saw and evaluated the patient. I reviewed the resident's note and discussed the case with the resident. I agree with the resident's findings and plan as documented. SUBJECTIVE: Patient is an 88 year old woman with PMH of COPD (on 3L O2), HFpEF, Afib on eliquis, CAD, HTN, Pacemaker, Aspirin allergy, HLD, ESRD on hemodialysis (T, [facility] , Sat), and CVA who presents to the ER with SOB since yesterday night. Per the patient, she states she has difficulty sleeping due to the shortness of breath. In addition, she states she feels chest tightness concurrent with her respiratory symptoms. She was recently admitted in the previous week for shortness of breath with a clinical course including IV lasix. The patient denies fever, chills, nausea, vomiting, lightheadedness, abdominal pain, and diarrhea. Unable to make urine and has bilateral leg edema with worsening swelling. OBJECTIVE: Alert Vital Signs Period Temp Pulse Resp BP Sys/Perez Pulse Ox Last 24 Hr 97.6 F 64 16 101/53 98-100 HEENT: No Jaundice, eye redness or discharge, PERRLA, EOMI. Normocephalic, atraumatic. External ears are normal and hearing is grossly intact. No nasal discharge. Neck: Supple, nontender. No palpable adenopathy or thyromegaly. No JVD Chest: Good effort.Right chest permacath and left chest pacemaker. Clear to auscultation and percussion. Heart: Regular. No S3, rub or murmur Abdomen: Not distended, soft, nontender and no HSM. No rebound or guarding. Normal bowel sounds. Ext: Peripheral pulses intact. Leg edema. RLE erythema. Skin: Warm and dry. No petechiae, rash or ecchymosis. Neuro: Alert. Oriented x3. CN 2-12 grossly intact. Sensation grossly intact in all four extremities and DTR are symmetric. Psych: Appropriate mood and affect. Good insight. Home Medications Medication Instructions Recorded Apixaban [Eliquis] 2.5 tab PO BID 05/22/17 Fluticasone/Salmeterol [Advair Hfa 12 gm IH DAILY 05/22/17 230-21 Mcg Inhaler] Omeprazole 40 mg PO DAILY 05/22/17 Simvastatin 40 mg PO DAILY 05/22/17 Tiotropium [place] [Spiriva] 2.5 mcg IH BID 05/22/17 Diltiazem Cd [Cardizem Cd -] 120 mg PO DAILY 30 Days #30 01/26/19 cap.cd.24h Metoprolol Succinate [Toprol Xl] 50 mg PO BID 30 Days #60 tab.er.24h 01/26/19 Albuterol Sulfate Inhaler - 180 mcg IH Q4H PRN 02/14/19 [Ventolin HFA Inhaler -] Cephalexin Monohydrate [Keflex -] 250 mg PO BID 5 Days #10 capsule 02/18/19 Furosemide 80 mg PO ASDIR #30 tablet 02/18/19 Lactobacillus Acidophilus [Bacid -] 1 each PO DAILY 7 Days #7 capsule 02/18/19 Abnormal Lab Results 02/24/19 02/24/19 02/24/19 23:42 23:42 23:42 RBC 3.33 L Hgb 8.7 L Hct 28.8 L MCHC 30.3 L RDW 21.5 H Monocytes % 11.6 H PT with INR 17.20 H INR 1.45 H ABG pO2 at Pt Temp Sodium 134 L Chloride 97 L BUN 32.9 H Creatinine 3.6 H ALT 9 L B-Natriuretic Peptide 6194.4 H Albumin 3.2 L 02/25/19 00:28 RBC Hgb Hct MCHC RDW Monocytes % PT with INR INR ABG pO2 at Pt Temp 110 H Sodium Chloride BUN Creatinine ALT B-Natriuretic Peptide Albumin ASSESSMENT AND PLAN: 1. CHF exacerbation/ESRD - Patient likely has fluid retention due to ESRD precipitating LV dysfunction. CXR shows cardiomegaly with pulmonary vascular congestion. ECHO from 12/25/18 showed normal LV size, thickness and function with EF of 55-60%. EKG shows Afib with rate of 74 with ventricular paced complexes; nonspecific ST-T wave changes - no significant change compared to prior EKGs. Treatment with Lasix, Cardiazem and Metoprolol may be causing predailysis and severe recurrent intradialytic hypotension - making it difficult to adequately remove fluid during hemodialysis or infact prompting normal saline administration during dialysis to treat hypotension. Furthermore, efficacy of her dialysis treatment will be suboptimal via the right chest dialysis catheter. Consult both Cardiology and Nephrology to explore the following options - 1)Discontinue both cardiazem and metoprolol, and of course lasix, and use amiodarone for rate control - thus allowing her BP to "rise" and permit adequate fluid removal during dialysis; 2) Dialyze her more frequently than 3 X a week to allow slow/increased fluid removal; 3) Explore the option of peritoneal dialysis with the family. Continue to avoid nephrotoxic agents such as NSAIDS, aminoglycosides, contrast dyes and certain Alternative medicine products. Will continue comprehensive care for all of patients comorbid conditions. 2. Hypoalbuminemia - Possibly due to combined effects of malnutrition and inflammation associated with comorbid chronic conditions. Will ensure adequate dietary protein intake and also consult quoter. 3. Anemia - Likely partly due to ESRD. Will do basic anemia work up including serial stool guaiacs, reticulocyte count and iron studies. Would benefit from Procrit therapy once iron replete. 4. Hypertension - Restart suitable outpatient antihypertensive drugs when clinically appropriate. Will benefit from gradually increasing dialytic fluid removal and taper off some antihypertensive drugs. Patient counseled on the injurious effects of uncontrolled hypertension. Nonpharmacologic measures to control hypertension like weight loss, salt restriction and exercise discussed. Importance of adherence to treatment regimen and attainment of normotension emphasized. 5. DVT prophylaxis - On Eliquis for Afib. 6. Advance directives - Full code
[2019-02-25] MEDS ORDERED: ALBUTEROL SO4 8 GM HFA INHALER IH PRN (03:42)
[2019-02-25 05:40] LABS: ANISOCYTOSIS 2+; MACROCYTOSIS 2+; PLATELET ESTIMATE DECREASED
--- NOTE | 2019-02-25 05:57 | HP ---
CHIEF COMPLAINT: SOB/ CHF exacerbation PCP: Dr. Johnson HISTORY OF PRESENT ILLNESS: Patient is an 88 year old female with history of heart failure with preserved ejection fraction, end stage renal disease on hemodialysis (Saturday, , Saturday; right tunneled catheter), paroxysmal atrial fibrillation (on Eliquis), past CVA, coronary artery disease, hypertension, hyperlpidemia, presents with complaint of shortness of breath. Of note, patient had had numerous admissions with similar presentation in the past months. Patient admits that she had her last hemodialysis session earlier today ; tolerated full session. However, despite her session, patient endorsed worsening shortness of breath with chest tightness and bilateral lower extremity pain and worsening of her edema. Patient reports she has been compliant with her medications since discharge including her lasix on non- dialysis days. She reported she finished her keflex which was prescribed for her bilateral LE cellulitis on her last admission 1 week ago. ER course was notable for: (1) CXR showing cardiomegaly and congestive changes (2) BP ~90/60, decision to hold lasix 2/2 low BP (3) EKG showing paced rhythm and afib unchanged from previous. QTc 506 Recent Travel: denies PAST MEDICAL HISTORY: heart failure with preserved ejection fraction, end stage renal disease on hemodialysis (Saturday, , Saturday; right tunneled catheter), paroxysmal atrial fibrillation (on Eliquis), past CVA, coronary artery disease, hypertension, hyperlpidemia, gastritis PAST SURGICAL HISTORY: pacemaker, c-sections Social History: Smoking: former 1 ppd smoker for 46y, quit 20 years ago Alcohol: denies Drugs: denies Allergies aspirin Allergy (Verified 02/24/19 22:50)- gives stomach problems HOME MEDICATIONS: Home Medications Medication Instructions Recorded Apixaban [Eliquis] 2.5 tab PO BID 05/22/17 Fluticasone/Salmeterol [Advair Hfa 12 gm IH DAILY 05/22/17 230-21 Mcg Inhaler] Omeprazole 40 mg PO DAILY 05/22/17 Simvastatin 40 mg PO DAILY 05/22/17 Tiotropium [place] [Spiriva] 2.5 mcg IH BID 05/22/17 Diltiazem Cd [Cardizem Cd -] 120 mg PO DAILY 30 Days #30 01/26/19 cap.cd.24h Metoprolol Succinate [Toprol Xl] 50 mg PO BID 30 Days #60 tab.er.24h 01/26/19 Albuterol Sulfate Inhaler - 180 mcg IH Q4H PRN 02/14/19 [Ventolin HFA Inhaler -] Cephalexin Monohydrate [Keflex -] 250 mg PO BID 5 Days #10 capsule 02/18/19 Furosemide 80 mg PO ASDIR #30 tablet 02/18/19 Lactobacillus Acidophilus [Bacid -] 1 each PO DAILY 7 Days #7 capsule 02/18/19 REVIEW OF SYSTEMS CONSTITUTIONAL: Absent: fever, chills, diaphoresis, generalized weakness, malaise, loss of appetite, weight change HEENT: Absent: rhinorrhea, nasal congestion, throat pain, throat swelling, difficulty swallowing, mouth swelling, ear pain, eye pain, visual changes CARDIOVASCULAR: worsening peripheral edema Absent: chest pain, syncope, palpitations, irregular heart rate, lightheadedness , RESPIRATORY: cough, shortness of breath,orthopnea Absent: dyspnea with exertion, , wheezing, stridor, hemoptysis GASTROINTESTINAL: epigastric abdominal pain Absent: abdominal distension, nausea, vomiting, diarrhea, constipation, melena , hematochezia GENITOURINARY: does not make urine Absent: dysuria, frequency, urgency, hesitancy, hematuria, flank pain, genital pain MUSCULOSKELETAL: Absent: myalgia, arthralgia, joint swelling, back pain, neck pain SKIN: Absent: rash, itching, pallor HEMATOLOGIC/IMMUNOLOGIC: Absent: easy bleeding, easy bruising, lymphadenopathy, frequent infections ENDOCRINE: Absent: unexplained weight gain, unexplained weight loss, heat intolerance, cold intolerance NEUROLOGIC: Absent: headache, focal weakness or paresthesias, dizziness, unsteady gait, seizure, mental status changes, bladder or bowel incontinence PSYCHIATRIC: Absent: anxiety, depression, suicidal or homicidal ideation, hallucinations. PHYSICAL EXAMINATION Vital Signs - 24 hr 02/24/19 02/25/19 02/25/19 21:10 00:35 00:37 Temperature 97.6 F Pulse Rate 64 Pulse Rate [ Left Apical] Respiratory 16 Rate Blood Pressure 101/53 L Blood Pressure [Right Arm] O2 Sat by Pulse 100 98 98 Oximetry (%) 02/25/19 02/25/19 04:30 05:56 Temperature Pulse Rate Pulse Rate [ 65 Left Apical] Respiratory 15 Rate Blood Pressure Blood Pressure 89/59 L [Right Arm] O2 Sat by Pulse 98 100 Oximetry (%) GENERAL: Awake, alert, and fully oriented, in no acute distress, breathing comfortably on BiPAP 40% FiO2 (IPAP/EPAP 04/10) HEAD: Normal with no signs of trauma. EYES: Pupils equal, round and reactive to light, extraocular movements intact, sclera anicteric, conjunctiva clear. No lid lag. EARS, NOSE, THROAT: Ears normal NECK: Normal range of motion, supple without lymphadenopathy, or JVD LUNGS: Breath sounds equal, distant with decreased respiratory effort, no wheezes, and no crackles. No accessory muscle use. HEART: Regular rate and irregularly irregular rhythm, normal S1 and S2 without murmur ABDOMEN: Soft, tender to palaption in epigastric region, not distended, normoactive bowel sounds, no guarding, no rebound, no masses. Pitting edema present on lower abdomen to navel and present on buttocks (1+ edema). MUSCULOSKELETAL: Normal range of motion at all joints. No bony deformities or tenderness. No CVA tenderness. R chest dialysis catheter UPPER EXTREMITIES: 2+ pulses, warm, well-perfused. No cyanosis. No clubbing. No peripheral edema. LOWER EXTREMITIES: 2+ pulses, warm, well-perfused. No calf tenderness. 2+ pitting edema from toes to knee. 1+ pitting edema to navel. NEUROLOGICAL: Cranial nerves II-XII intact. Normal speech. Normal gait. PSYCHIATRIC: Cooperative. Good eye contact. Appropriate mood and affect. SKIN: Warm, dry, normal turgor, bilateral red rash with sloughing skin on lower extremity until 2inches below knee with sharp line of demarcation. Laboratory Results - last 24 hr 02/24/19 02/24/19 02/24/19 23:42 23:42 23:42 WBC 7.1 RBC 3.33 L Hgb 8.7 L Hct 28.8 L MCV 86.6 MCH 26.3 MCHC 30.3 L RDW 21.5 H Plt Count 181 MPV 8.5 Absolute Neuts (auto) 5.1 Neutrophils % 72.4 Lymphocytes % 13.0 Monocytes % 11.6 H Eosinophils % 1.7 Basophils % 1.3 Nucleated RBC % 0 Hypochromia 1+ Platelet Estimate Decreased Polychromasia 1+ Poikilocytosis 1+ Anisocytosis 2+ Macrocytosis 2+ Spherocytes 1+ PT with INR 17.20 H INR 1.45 H Anticoagulation Therapy Puncture Site ABG pH ABG pCO2 at Pt Temp ABG pO2 at Pt Temp ABG HCO3 ABG O2 Sat (Measured) ABG O2 Content ABG Base Excess Ankit Test Carboxyhemoglobin Methemoglobin O2 Delivery Device Oxygen Flow Rate Vent Mode Vent Rate Mechanical Rate Pressure Support Vent Sodium 134 L Potassium 4.1 Chloride 97 L Carbon Dioxide 25 Anion Gap 12 BUN 32.9 H Creatinine 3.6 H Est GFR (CKD-EPI)AfAm 12.56 Est GFR (CKD-EPI)NonAf 10.83 Random Glucose 94 Calcium 8.8 Total Bilirubin 1.0 AST 29 ALT 9 L Alkaline Phosphatase 108 Creatine Kinase 82 Troponin I 0.02 B-Natriuretic Peptide 6194.4 H Total Protein 6.4 Albumin 3.2 L 02/25/19 00:28 WBC RBC Hgb Hct MCV MCH MCHC RDW Plt Count MPV Absolute Neuts (auto) Neutrophils % Lymphocytes % Monocytes % Eosinophils % Basophils % Nucleated RBC % Hypochromia Platelet Estimate Polychromasia Poikilocytosis Anisocytosis Macrocytosis Spherocytes PT with INR INR Anticoagulation Therapy No Result Required. Puncture Site Right brachial ABG pH 7.39 ABG pCO2 at Pt Temp 41.9 ABG pO2 at Pt Temp 110 H ABG HCO3 24.5 ABG O2 Sat (Measured) 98.0 ABG O2 Content 11.9 ABG Base Excess 0.1 Ankit Test Positive Carboxyhemoglobin 1.9 Methemoglobin < 1.0 O2 Delivery Device N/c Oxygen Flow Rate 3lpm Vent Mode No Result Required. Vent Rate No Result Required. Mechanical Rate No Result Required. Pressure Support Vent No Result Required. Sodium Potassium Chloride Carbon Dioxide Anion Gap BUN Creatinine Est GFR (CKD-EPI)AfAm Est GFR (CKD-EPI)NonAf Random Glucose Calcium Total Bilirubin AST ALT Alkaline Phosphatase Creatine Kinase Troponin I B-Natriuretic Peptide Total Protein Albumin ASSESSMENT/PLAN: Patient is an 88 year old female with history of heart failure with preserved ejection fraction, end stage renal disease on hemodialysis (Saturday, , Saturday; right tunneled catheter), paroxysmal atrial fibrillation (on Eliquis) , past CVA, coronary artery disease, hypertension, hyperlpidemia, presents with complaint of shortness of breath and worsening lower extremity edema. #CHF exacerbation - Patient with pitting edema to the abdomen despite dialysis and lasix QOD. Likely 2/2 to her ESRD precipitating LV dysfunction. CXR showing cardiomegaly and pulmonary vascular congestion. HFpEF (EF 55-60%). Additionally , lasix in combo with her meds for rate control (cardizem and metoprolol) may be contributing to hypotension during dialysis sessions which then results in difficulty removing fluid during hemodialysis (especially if the patient is requiring IVF repletion during dialysis sessions for hypotension). - consult nephrology, appreciate recommendations - inquire about stopping lasix (in addition to d/c cardiazem and metoprolol and starting amio for rate control) to allow BP to "rise" and permit adequate fluid removal during dialysis - alternatively inquire about dialyzing her more frequently than 3 X a week to allow slow/increased fluid removal OR exploring the option of peritoneal dialysis with the family. - consult cardiology to ask about d/c cardiazem and metroprolol and starting amiodarone/ digoxin for rate control #HTN- Restart suitable outpatient antihypertensive drugs when clinically appropriate. Will benefit from gradually increasing dialytic fluid removal and taper off some antihypertensive drugs. - Cardiology (Dr. Lancaster) consulted, appreciate recommendations #FEN - No standing fluids - replete PRN - NPO while on BiPAP, then Na controlled, diet #Ppx -DVT: continue home Eliquis Disposition - admit to [facility] [place] Visit type - Emergency Visit Emergency Visit: Yes ED Registration Date: 02/25/19 Care time: The patient presented to the Emergency Department on the above date and was hospitalized for further evaluation of their emergent condition. - New Patient This patient is new to me today: Yes Date on this admission: 02/25/19 - Critical Care Critical Care patient: No ATTENDING PHYSICIAN STATEMENT I saw and evaluated the patient. I reviewed the resident's note and discussed the case with the resident. I agree with the resident's findings and plan as documented. SUBJECTIVE: OBJECTIVE: ASSESSMENT AND PLAN:
[2019-02-25] MEDS ORDERED: ACETAMINOPHEN 325 MG TABLET (FP) PO PRN ×2 (09:19→21:01)
--- NOTE | 2019-02-25 09:30 | CONSULT ---
Consultation: REQUESTING PROVIDER: Dr. Ramirez CONSULT REQUEST: We have been asked to medically evaluate this patient for ESRD. HISTORY OF PRESENT ILLNESS: Pt. is an 88 y.o. F w/ PMHx. of HTN, HLD, Afib (on Eliquis; s/p Pacemaker), ESRD(TTS), CAD, CVA, HFpEF COPD( on home 3L O2) presents with shortness of breath. Pt. was recently admitted for shortness of breath and states that since discharge her breathing has not improved even after HD, and even with her recent medication change of taking Lasix 80 mg on non-HD days. Pt. endorses making urine and states that "sometime it is a lot and sometimes it is a little." Pt. denies any increase in swelling in her legs but endorses mata ther swelling has not gotten better since discharge. Pt. states that she was taking Kefflex for her improving cellulitis of b/l lower extremities and was supposed to complete her 5 day regimen today. Pt. denies any fever or chills at home. Pt. denies ever being told that she needed to be on CPAP at home but endorses using supplemental oxygen. Pt. denies any constipation or diarrhea. Of note Pt. has history of non-compliance with diet and drinks a lot of fluids. REVIEW OF SYSTEMS: CONSTITUTIONAL: Absent: fever, chills, diaphoresis, generalized weakness, malaise, loss of appetite, weight change HEENT: Absent: rhinorrhea, nasal congestion, throat pain, throat swelling, difficulty swallowing, mouth swelling, ear pain, eye pain, visual changes CARDIOVASCULAR: peripheral edema Absent: chest pain, syncope, palpitations, irregular heart rate, lightheadedness , RESPIRATORY: shortness of breath, dyspnea with exertion, orthopnea Absent: cough, wheezing, stridor, hemoptysis GASTROINTESTINAL: Absent: abdominal pain, abdominal distension, nausea, vomiting, diarrhea, constipation, melena, hematochezia GENITOURINARY: Absent: dysuria, frequency, urgency, hesitancy, hematuria, flank pain, genital pain MUSCULOSKELETAL: Absent: myalgia, arthralgia, joint swelling, back pain, neck pain SKIN: rash Absent: itching, pallor HEMATOLOGIC/IMMUNOLOGIC: Absent: easy bleeding, easy bruising, lymphadenopathy, frequent infections ENDOCRINE: cold intolerance Absent: unexplained weight gain, unexplained weight loss, heat intolerance, NEUROLOGIC: Absent: headache, focal weakness or paresthesias, dizziness, unsteady gait, seizure, mental status changes, bladder or bowel incontinence PSYCHIATRIC: Absent: anxiety, depression, suicidal or homicidal ideation, hallucinations. PHYSICAL EXAMINATION Vital Signs - 24 hr 02/24/19 02/25/19 02/25/19 21:10 00:35 00:37 Temperature 97.6 F Pulse Rate 64 Pulse Rate [ Left Apical] Respiratory 16 Rate Blood Pressure 101/53 L Blood Pressure [Right Arm] O2 Sat by Pulse 100 98 98 Oximetry (%) 02/25/19 02/25/19 02/25/19 04:30 05:56 05:57 Temperature Pulse Rate Pulse Rate [ 65 Left Apical] Respiratory 15 Rate Blood Pressure Blood Pressure 89/59 L [Right Arm] O2 Sat by Pulse 98 100 100 Oximetry (%) GENERAL: Awake, alert, and fully oriented, in no acute distress. HEAD: Normal with no signs of trauma. EYES: Extraocular movements intact, sclera anicteric, conjunctiva clear. EARS, NOSE, THROAT: Ears normal, nares patent, oropharynx clear without exudates. Moist mucous membranes. NECK: Normal range of motion, supple without JVD, or masses. LUNGS: Diffuse crackles, decreased inspiration, no accessory muscle use HEART: Irregular rate, normal S1 and S2 without murmur MUSCULOSKELETAL: Normal range of motion at all joints. No bony deformities or tenderness. No CVA tenderness. UPPER EXTREMITIES: 2+ radial pulses, warm, well-perfused. LOWER EXTREMITIES: warm, well-perfused. No calf tenderness. 3+ edema with well- demarcated erythema up to the knees. NEUROLOGICAL: Cranial nerves II-XII intact. Normal speech. Slow Gait PSYCHIATRIC: Cooperative. Good eye contact. Appropriate mood and affect. SKIN: Warm, dry, increased turgor in b/l LE Laboratory Results - last 24 hr 02/24/19 02/24/19 02/24/19 23:42 23:42 23:42 WBC 7.1 RBC 3.33 L Hgb 8.7 L Hct 28.8 L MCV 86.6 MCH 26.3 MCHC 30.3 L RDW 21.5 H Plt Count 181 MPV 8.5 Absolute Neuts (auto) 5.1 Neutrophils % 72.4 Lymphocytes % 13.0 Monocytes % 11.6 H Eosinophils % 1.7 Basophils % 1.3 Nucleated RBC % 0 Hypochromia 1+ Platelet Estimate Decreased Polychromasia 1+ Poikilocytosis 1+ Anisocytosis 2+ Macrocytosis 2+ Spherocytes 1+ PT with INR 17.20 H INR 1.45 H Anticoagulation Therapy Puncture Site ABG pH ABG pCO2 at Pt Temp ABG pO2 at Pt Temp ABG HCO3 ABG O2 Sat (Measured) ABG O2 Content ABG Base Excess Ankit Test Carboxyhemoglobin Methemoglobin O2 Delivery Device Oxygen Flow Rate Vent Mode Vent Rate Mechanical Rate Pressure Support Vent Sodium 134 L Potassium 4.1 Chloride 97 L Carbon Dioxide 25 Anion Gap 12 BUN 32.9 H Creatinine 3.6 H Est GFR (CKD-EPI)AfAm 12.56 Est GFR (CKD-EPI)NonAf 10.83 Random Glucose 94 Calcium 8.8 Total Bilirubin 1.0 AST 29 ALT 9 L Alkaline Phosphatase 108 Creatine Kinase 82 Troponin I 0.02 B-Natriuretic Peptide 6194.4 H Total Protein 6.4 Albumin 3.2 L 02/25/19 00:28 WBC RBC Hgb Hct MCV MCH MCHC RDW Plt Count MPV Absolute Neuts (auto) Neutrophils % Lymphocytes % Monocytes % Eosinophils % Basophils % Nucleated RBC % Hypochromia Platelet Estimate Polychromasia Poikilocytosis Anisocytosis Macrocytosis Spherocytes PT with INR INR Anticoagulation Therapy No Result Required. Puncture Site Right brachial ABG pH 7.39 ABG pCO2 at Pt Temp 41.9 ABG pO2 at Pt Temp 110 H ABG HCO3 24.5 ABG O2 Sat (Measured) 98.0 ABG O2 Content 11.9 ABG Base Excess 0.1 Ankit Test Positive Carboxyhemoglobin 1.9 Methemoglobin < 1.0 O2 Delivery Device N/c Oxygen Flow Rate 3lpm Vent Mode No Result Required. Vent Rate No Result Required. Mechanical Rate No Result Required. Pressure Support Vent No Result Required. Sodium Potassium Chloride Carbon Dioxide Anion Gap BUN Creatinine Est GFR (CKD-EPI)AfAm Est GFR (CKD-EPI)NonAf Random Glucose Calcium Total Bilirubin AST ALT Alkaline Phosphatase Creatine Kinase Troponin I B-Natriuretic Peptide Total Protein Albumin Active Medications Home Medications Medication Instructions Recorded Apixaban [Eliquis] 2.5 tab PO BID 05/22/17 Fluticasone/Salmeterol [Advair Hfa 12 gm IH DAILY 05/22/17 230-21 Mcg Inhaler] Omeprazole 40 mg PO DAILY 05/22/17 Simvastatin 40 mg PO DAILY 05/22/17 Tiotropium [place] [Spiriva] 2.5 mcg IH BID 05/22/17 Diltiazem Cd [Cardizem Cd -] 120 mg PO DAILY 30 Days #30 01/26/19 cap.cd.24h Metoprolol Succinate [Toprol Xl] 50 mg PO BID 30 Days #60 tab.er.24h 01/26/19 Albuterol Sulfate Inhaler - 180 mcg IH Q4H PRN 02/14/19 [Ventolin HFA Inhaler -] Cephalexin Monohydrate [Keflex -] 250 mg PO BID 5 Days #10 capsule 02/18/19 Furosemide 80 mg PO ASDIR #30 tablet 02/18/19 Lactobacillus Acidophilus [Bacid -] 1 each PO DAILY 7 Days #7 capsule 02/18/19 Current Medications Acetaminophen (Tylenol -) 650 mg PO Q6H PRN PRN Reason: PAIN Albuterol Sulfate (Ventolin Hfa Inhaler -) 2 puff IH Q4H PRN PRN Reason: SHORT OF BREATH/WHEEZING Apixaban (Eliquis -) 2.5 mg PO BID KESHAWN Atorvastatin Calcium (Lipitor -) 20 mg PO HS KESHAWN Budesonide/Formoterol Fumarate (Symbicort 80/4.5mcg -) 2 puff IH BID KESHAWN Diltiazem HCl (Cardizem Cd -) 120 mg PO DAILY KESHAWN Lactobacillus Acidophilus (Bacid -) 1 tab PO DAILY KESHAWN Metoprolol Succinate (Toprol Xl -) 50 mg PO BID KESHAWN Pantoprazole Sodium (Protonix -) 40 mg PO DAILY KESHAWN Tiotropium [place] (Spiriva Respimat) 2 puff IH DAILY [facility] ASSESSMENT/PLAN: Pt. is an 88 y.o. F w/ PMHx. of HTN, HLD, Afib (on Eliquis; s/p Pacemaker), ESRD (TTS), CAD, CVA, HFpEF COPD( on home 3L O2) presents with shortness of breath. #Shortness of breath 2/2 volume overload CXR: increase bilateral congestion compared to 02/19/19 with increased bilateral pleural effusions c/w supplemental O2 BiPaP PRN during day and at night as needed ABG unremarkable: pCO2 41.9, pH 7.39 likely a component of non-compliance with diet (salt and fluid intake) Last Echo (12/25/18): EF:55-60% mod. MR and TR, RVP: 30-40 mmHg #ESRD for HD on TTS will continue Lasix on non-HD days #Anemia of Chronic Disease HgB stable at 8.7 Transfusion threshhold ay 8 given cardiac medical history #FEN Strict Fluid restriction of 2 L monitor lytes and replete as needed Low sodium Diet #DVT Ppx. Eliquis 2.5mg BID Dispo: We will continue to follow the patient. Thank you for this consultative opportunity. Visit type - Emergency Visit Emergency Visit: Yes ED Registration Date: 02/25/19 Care time: The patient presented to the Emergency Department on the above date and was hospitalized for further evaluation of their emergent condition. - New Patient This patient is new to me today: Yes Date on this admission: 02/25/19 - Critical Care Critical Care patient: No ATTENDING PHYSICIAN STATEMENT I saw and evaluated the patient. I reviewed the resident's note and discussed the case with the resident. I agree with the resident's findings and plan as documented. SUBJECTIVE: OBJECTIVE: ASSESSMENT AND PLAN:
[2019-02-25] MEDS ORDERED: PT OWN MED DRAWER 7, Y5N ONE (09:31)
[2019-02-25] MEDS ORDERED: ACETAMINOPHEN 325 MG TABLET (FP) ONE (09:35)
--- NOTE | 2019-02-25 09:58 | EKG ---
Test Reason : Blood Pressure : / mmHG Vent. Rate : 074 BPM Atrial Rate : 064 BPM P-R Int : 000 ms QRS Dur : 136 ms QT Int : 456 ms P-R-T Axes : 000 083 -87 degrees QTc Int : 506 ms ATRIAL FIBRILLATION WITH FREQUENT ventricular-paced complexes NON-SPECIFIC INTRA-VENTRICULAR CONDUCTION BLOCK POSSIBLE LATERAL INFARCT , AGE UNDETERMINED T WAVE ABNORMALITY, CONSIDER INFERIOR ISCHEMIA ABNORMAL ECG WHEN COMPARED WITH ECG OF 19-FEB-2019 04:35, VENT. RATE HAS DECREASED BY 3 BPM Confirmed by ARTUR STATON, DILCIA ([id number]) on 02/25/2019 9:57:36 AM Referred By: Confirmed By:DILCIA SIDDIQUI MD
[2019-02-25] MEDS ORDERED: BUDESONIDE/FORMETEROL FUMARATE 80/4.5 mcg INHALER IH SCH (10:00)
[2019-02-25] MEDS ORDERED: PATIENT'S OWN MEDICATION (NON-FORMULARY) (Simvastatin [Simvastatin] 40 MG) PO SCH (10:00)
[2019-02-25] MEDS ORDERED: LACTOBACILLUS ACIDOPHILUS 1 TABLET PO SCH (10:00)
[2019-02-25] MEDS ORDERED: APIXABAN 2.5 MG TABLET PO SCH (10:00)
[2019-02-25] MEDS ORDERED: TIOTROPIUM BROMIDE 2.5 MCG IH SCH (10:00)
[2019-02-25] MEDS ORDERED: PATIENT'S OWN MEDICATION (NON-FORMULARY) (Omeprazole [Omeprazole] 40 MG) PO SCH (10:00)
[2019-02-25] MEDS ORDERED: PATIENT'S OWN MEDICATION (NON-FORMULARY) (Fluticasone/Salmeterol [Advair Hfa 230-21 Mcg In IH SCH (10:00)
[2019-02-25] MEDS ORDERED: PANTOPRAZOLE 40 MG TABLET (FP) PO SCH (10:00)
[2019-02-25] MEDS ORDERED: TIOTROPIUM BROMIDE 2.5 MCG (SPIRIVA) RESPIMAT INHALER IH SCH (10:00)
[2019-02-25] MEDS ORDERED: ALBUTEROL SO4 0.083% IH SOL 2.5 MG/3 ML VIAL.NEB. NEB ONE ×2 (11:40→11:42)
[2019-02-25] MEDS ORDERED: FUROSEMIDE 40 MG/4 ML INJECTABLE VIAL IVPUSH ONE (12:27)
[2019-02-25] MEDS ORDERED: FUROSEMIDE 40 MG/4 ML INJECTABLE VIAL ONE (13:48)
--- NOTE | 2019-02-25 14:03 | PN ---
Teaching Attending Note Name of Resident: Heri Sampson ATTENDING PHYSICIAN STATEMENT I saw and evaluated the patient. I reviewed the resident's note and discussed the case with the resident. I agree with the resident's findings and plan as documented. SUBJECTIVE: Pt states breathing slightly improved. No chest pain currently. Still with LE swelling and orthopnea. OBJECTIVE: Vital Signs Period Temp Pulse Resp BP Sys/Perez Pulse Ox Last 24 Hr 97.2 F-97.6 F 64-72 15-20 89-101/53-63 95-100 Intake & Output 02/22/19 02/23/19 02/24/19 02/25/19 23:59 23:59 23:59 23:59 Weight 58.967 kg Gen: NAD in chair Heart: RRR Lung: decreased breath sounds at the bases Abd: soft, nontender Ext: + edema CBC, BMP 02/24/19 23:42 02/24/19 23:42 Active Medications Acetaminophen (Tylenol -) 650 mg PO Q6H PRN PRN Reason: PAIN Albuterol Sulfate (Ventolin Hfa Inhaler -) 2 puff IH Q4H PRN PRN Reason: SHORT OF BREATH/WHEEZING Last Admin: 02/25/19 11:39 Dose: 1 neb Apixaban (Eliquis -) 2.5 mg PO BID [facility] Last Admin: 02/25/19 09:48 Dose: 2.5 mg Atorvastatin Calcium (Lipitor -) 20 mg PO KESHAWN Budesonide/Formoterol Fumarate (Symbicort 80/4.5mcg -) 2 puff IH BID [facility] Last Admin: 02/25/19 11:33 Dose: 2 puff Diltiazem HCl (Cardizem Cd -) 120 mg PO DAILY [facility] Last Admin: 02/25/19 09:48 Dose: 120 mg Lactobacillus Acidophilus (Bacid -) 1 tab PO DAILY [facility] Last Admin: 02/25/19 09:48 Dose: 1 tab Metoprolol Succinate (Toprol Xl -) 50 mg PO BID [facility] Last Admin: 02/25/19 13:43 Dose: Not Given Pantoprazole Sodium (Protonix -) 40 mg PO DAILY [facility] Last Admin: 02/25/19 09:48 Dose: 40 mg Tiotropium [place] (Spiriva Respimat) 2 puff IH DAILY [facility] Last Admin: 02/25/19 11:33 Dose: 2 puff ASSESSMENT AND PLAN: Acute on Chronic Diastolic Heart Failure ESRD on HD Volume Overload Pulmonary HTN Paroxysmal Atrial Fibrillation CAD HTN Hyperlipidemia h/o CVA - trial of lasix - HD per renal - daily weights - O2 to keep SpO2 >90% - inhaled bronchodilators - BiPAP as needed to assist in work of breathing - rate control - continue anticoagulation Thank you for this consult Justin Chowdhury MD
[2019-02-25] MEDS ORDERED: ALBUTEROL SO4 0.083% IH SOL 2.5 MG/3 ML VIAL.NEB. NEB PRN ×2 (14:06→21:01)
[2019-02-25] MEDS: ALBUMIN HUMAN 25% 12.5 GM/50 ML VIAL IVPB SCH ×4 (15:15→16:45)
--- NOTE | 2019-02-25 17:37 | PN ---
Physical Exam: SUBJECTIVE: Patient seen and examined Endorses mild SOB, expressed desire to sit upright OBJECTIVE: Vital Signs Period Temp Pulse Resp BP Sys/Perez Pulse Ox Last 24 Hr 97.2 F-97.6 F 64-72 15-20 89-101/53-63 95-100 GENERAL: The patient is awake, alert, and fully oriented, in no acute distress. HEAD: NC/AT EYES:sclera anicteric, conjunctiva clear. ENT: Ears normal, nares patent, moist mucous membranes. NECK: Trachea midline, full range of motion, supple. LUNGS: Breath sounds equal, mild crackles to lung bases b/l, no accessory muscle use. HEART: Regular rate and rhythm, S1, S2 without murmur, rub or gallop. ABDOMEN: Soft, nontender, nondistended, no guarding, no rebound, no hepatosplenomegaly, no masses. EXTREMITIES: 1+ pulses, warm, well-perfused. 2+ edema of BLE up to hips NEUROLOGICAL: Normal speech, gait not observed. PSYCH: Normal mood, normal affect. Laboratory Results - last 24 hr 02/24/19 02/24/19 02/24/19 23:42 23:42 23:42 WBC 7.1 RBC 3.33 L Hgb 8.7 L Hct 28.8 L MCV 86.6 MCH 26.3 MCHC 30.3 L RDW 21.5 H Plt Count 181 MPV 8.5 Absolute Neuts (auto) 5.1 Neutrophils % 72.4 Lymphocytes % 13.0 Monocytes % 11.6 H Eosinophils % 1.7 Basophils % 1.3 Nucleated RBC % 0 Hypochromia 1+ Platelet Estimate Decreased Polychromasia 1+ Poikilocytosis 1+ Anisocytosis 2+ Macrocytosis 2+ Spherocytes 1+ PT with INR 17.20 H INR 1.45 H Anticoagulation Therapy Puncture Site ABG pH ABG pCO2 at Pt Temp ABG pO2 at Pt Temp ABG HCO3 ABG O2 Sat (Measured) ABG O2 Content ABG Base Excess Ankit Test Carboxyhemoglobin Methemoglobin O2 Delivery Device Oxygen Flow Rate Vent Mode Vent Rate Mechanical Rate Pressure Support Vent Sodium 134 L Potassium 4.1 Chloride 97 L Carbon Dioxide 25 Anion Gap 12 BUN 32.9 H Creatinine 3.6 H Est GFR (CKD-EPI)AfAm 12.56 Est GFR (CKD-EPI)NonAf 10.83 Random Glucose 94 Calcium 8.8 Total Bilirubin 1.0 AST 29 ALT 9 L Alkaline Phosphatase 108 Creatine Kinase 82 Troponin I 0.02 B-Natriuretic Peptide 6194.4 H Total Protein 6.4 Albumin 3.2 L 02/25/19 00:28 WBC RBC Hgb Hct MCV MCH MCHC RDW Plt Count MPV Absolute Neuts (auto) Neutrophils % Lymphocytes % Monocytes % Eosinophils % Basophils % Nucleated RBC % Hypochromia Platelet Estimate Polychromasia Poikilocytosis Anisocytosis Macrocytosis Spherocytes PT with INR INR Anticoagulation Therapy No Result Required. Puncture Site Right brachial ABG pH 7.39 ABG pCO2 at Pt Temp 41.9 ABG pO2 at Pt Temp 110 H ABG HCO3 24.5 ABG O2 Sat (Measured) 98.0 ABG O2 Content 11.9 ABG Base Excess 0.1 Ankit Test Positive Carboxyhemoglobin 1.9 Methemoglobin < 1.0 O2 Delivery Device N/c Oxygen Flow Rate 3lpm Vent Mode No Result Required. Vent Rate No Result Required. Mechanical Rate No Result Required. Pressure Support Vent No Result Required. Sodium Potassium Chloride Carbon Dioxide Anion Gap BUN Creatinine Est GFR (CKD-EPI)AfAm Est GFR (CKD-EPI)NonAf Random Glucose Calcium Total Bilirubin AST ALT Alkaline Phosphatase Creatine Kinase Troponin I B-Natriuretic Peptide Total Protein Albumin Active Medications Generic Name Dose Route Start Last Admin Trade Name Freq PRN Reason Stop Dose Admin Acetaminophen 650 mg 02/25/19 09:19 Tylenol - PO Q6H PRN PAIN Albuterol Sulfate 1 amp 02/25/19 14:06 Ventolin 0.083% Nebulizer Soln - NEB Q6H PRN SHORT OF BREATH/WHEEZING Apixaban 2.5 mg 02/25/19 10:00 02/25/19 09:48 Eliquis - PO 2.5 mg BID KESHAWN Administration Atorvastatin Calcium 20 mg 02/25/19 22:00 Lipitor - PO HS KESHAWN Budesonide/Formoterol Fumarate 2 puff 02/25/19 10:00 02/25/19 11:33 Symbicort 80/4.5mcg - IH 2 puff BID KESHAWN Administration Diltiazem HCl 120 mg 02/25/19 10:00 02/25/19 09:48 Cardizem Cd - PO 120 mg DAILY KESHAWN Administration Lactobacillus Acidophilus 1 tab 02/25/19 10:00 02/25/19 09:48 Bacid - PO 1 tab DAILY KESHAWN Administration Metoprolol Succinate 50 mg 02/25/19 10:00 02/25/19 13:43 Toprol Xl - PO Not Given BID KESHAWN Pantoprazole Sodium 40 mg 02/25/19 10:00 02/25/19 09:48 Protonix - PO 40 mg DAILY KESHAWN Administration Tiotropium [place] 2 puff 02/25/19 10:00 02/25/19 11:33 Spiriva Respimat IH 2 puff DAILY KESHAWN Administration ASSESSMENT/PLAN: 88F w/ pmh of HFpEF, ESRD on HD(T/R/S via right TC), pAF(on Eliquis), past CVA, CAD, HTN, HLD, presents with complaint of shortness of breath and worsening lower extremity edema after receiving HD. #CHF exacerbation - Patient with pitting edema to the abdomen despite dialysis and lasix QOD. Likely 2/2 to her ESRD precipitating LV dysfunction. CXR showing cardiomegaly and pulmonary vascular congestion. HFpEF (EF 55-60%). Additionally , lasix in combo with her meds for rate control (cardizem and metoprolol) may be contributing to hypotension during dialysis sessions which then results in difficulty removing fluid during hemodialysis (especially if the patient is requiring IVF repletion during dialysis sessions for hypotension). > CXR: cardiomegaly, vasc congestion - consult nephrology, appreciate recommendations: --HD today -- inquire about stopping lasix (in addition to d/c cardiazem and metoprolol and starting amio for rate control) to allow BP to "rise" and permit adequate fluid removal during dialysis -- alternatively inquire about dialyzing her more frequently than 3 X a week to allow slow/increased fluid removal OR exploring the option of peritoneal dialysis with the family. - consult cardiology to ask about d/c cardiazem and metroprolol and starting amiodarone/ digoxin for rate control #HTN- Restart suitable outpatient antihypertensive drugs when clinically appropriate. Will benefit from gradually increasing dialytic fluid removal and taper off some antihypertensive drugs. - Cardiology (Dr. Lancaster) consulted, appreciate recommendations #FEN - No standing fluids - replete PRN - NPO while on BiPAP, then Na controlled, diet #Ppx -DVT: continue home Eliquis Disposition - discharge home after HD Visit type - Emergency Visit Emergency Visit: No - New Patient This patient is new to me today: No - Critical Care Critical Care patient: No ATTENDING PHYSICIAN STATEMENT I saw and evaluated the patient. I reviewed the resident's note and discussed the case with the resident. I agree with the resident's findings and plan as documented. SUBJECTIVE: OBJECTIVE: ASSESSMENT AND PLAN:
--- NOTE | 2019-02-25 17:37 | DS ---
Physical Exam: SUBJECTIVE: Patient seen and examined OBJECTIVE: Vital Signs Period Temp Pulse Resp BP Sys/Perez Pulse Ox Last 24 Hr 97.2 F-97.6 F 64-72 15-20 89-101/53-63 95-100 PHYSICAL EXAM GENERAL: The patient is awake, alert, and fully oriented, in no acute distress. HEAD: Normal with no signs of trauma. EYES: PERRL, extraocular movements intact, sclera anicteric, conjunctiva clear. ENT: Ears normal, nares patent, oropharynx clear without exudates, moist mucous membranes. NECK: Trachea midline, full range of motion, supple. LUNGS: Breath sounds equal, clear to auscultation bilaterally, no wheezes, no crackles, no accessory muscle use. HEART: Regular rate and rhythm, S1, S2 without murmur, rub or gallop. ABDOMEN: Soft, nontender, nondistended, normoactive bowel sounds, no guarding, no rebound, no hepatosplenomegaly, no masses. EXTREMITIES: 2+ pulses, warm, well-perfused, no edema. NEUROLOGICAL: Cranial nerves II through XII grossly intact. Normal speech, gait not observed. PSYCH: Normal mood, normal affect. SKIN: Warm, dry, normal turgor, no rashes or lesions noted. LABS Laboratory Results - last 24 hr 02/24/19 02/24/19 02/24/19 23:42 23:42 23:42 WBC 7.1 RBC 3.33 L Hgb 8.7 L Hct 28.8 L MCV 86.6 MCH 26.3 MCHC 30.3 L RDW 21.5 H Plt Count 181 MPV 8.5 Absolute Neuts (auto) 5.1 Neutrophils % 72.4 Lymphocytes % 13.0 Monocytes % 11.6 H Eosinophils % 1.7 Basophils % 1.3 Nucleated RBC % 0 Hypochromia 1+ Platelet Estimate Decreased Polychromasia 1+ Poikilocytosis 1+ Anisocytosis 2+ Macrocytosis 2+ Spherocytes 1+ PT with INR 17.20 H INR 1.45 H Anticoagulation Therapy Puncture Site ABG pH ABG pCO2 at Pt Temp ABG pO2 at Pt Temp ABG HCO3 ABG O2 Sat (Measured) ABG O2 Content ABG Base Excess Ankit Test Carboxyhemoglobin Methemoglobin O2 Delivery Device Oxygen Flow Rate Vent Mode Vent Rate Mechanical Rate Pressure Support Vent Sodium 134 L Potassium 4.1 Chloride 97 L Carbon Dioxide 25 Anion Gap 12 BUN 32.9 H Creatinine 3.6 H Est GFR (CKD-EPI)AfAm 12.56 Est GFR (CKD-EPI)NonAf 10.83 Random Glucose 94 Calcium 8.8 Total Bilirubin 1.0 AST 29 ALT 9 L Alkaline Phosphatase 108 Creatine Kinase 82 Troponin I 0.02 B-Natriuretic Peptide 6194.4 H Total Protein 6.4 Albumin 3.2 L 02/25/19 00:28 WBC RBC Hgb Hct MCV MCH MCHC RDW Plt Count MPV Absolute Neuts (auto) Neutrophils % Lymphocytes % Monocytes % Eosinophils % Basophils % Nucleated RBC % Hypochromia Platelet Estimate Polychromasia Poikilocytosis Anisocytosis Macrocytosis Spherocytes PT with INR INR Anticoagulation Therapy No Result Required. Puncture Site Right brachial ABG pH 7.39 ABG pCO2 at Pt Temp 41.9 ABG pO2 at Pt Temp 110 H ABG HCO3 24.5 ABG O2 Sat (Measured) 98.0 ABG O2 Content 11.9 ABG Base Excess 0.1 Ankit Test Positive Carboxyhemoglobin 1.9 Methemoglobin < 1.0 O2 Delivery Device N/c Oxygen Flow Rate 3lpm Vent Mode No Result Required. Vent Rate No Result Required. Mechanical Rate No Result Required. Pressure Support Vent No Result Required. Sodium Potassium Chloride Carbon Dioxide Anion Gap BUN Creatinine Est GFR (CKD-EPI)AfAm Est GFR (CKD-EPI)NonAf Random Glucose Calcium Total Bilirubin AST ALT Alkaline Phosphatase Creatine Kinase Troponin I B-Natriuretic Peptide Total Protein Albumin HOSPITAL COURSE: Date of Admission:02/25/19 Date of Discharge: 02/25/19 Discharge Summary Problems reviewed: Yes Reason For Visit: ACUTE ON CHRONIC DIASTOLIC CONGESTIVE HEART Current Active Problems FRYE (dyspnea on exertion) (Chronic) ESRD (end stage renal disease) (Chronic) Hyperlipidemia (Chronic) Condition: Stable - Instructions Diet, Activity, Other Instructions: You were evaluated in the hospital for shortness of breath. You were given medications to help urinate out excess body water. You also received dialysis while you were here. Medications: TAKE LASIX 80MG ONCE A DAY ON DAYS YOU DO NOT HAVE DIALYSIS. DO NOT TAKE LASIX ON DIALYSIS DAYS. Continue all your other home medications like before. Follow up: Dr. Johnson, primary care, within 1 week of discharge to check your legs. Dr. Barrios, nephrology. Resume your normal dialysis schedule(//Sat). Diet: It is important to eat a low salt diet and limit the amount of liquids you drink to 4 8oz cups a day. This will prevent fluid from building up in your body. Other instructions: Monitor your weight daily. If you notice a 2-3 pound weight gain in 4-5 days, call Dr. Johnson or Dr. Barrios. You can also go to the emergency room. Keep your legs elevated if possible to help the swelling in your legs. Return to the emergency room also if you have chest pain, difficulty breathing, or lightheadedness/dizziness or any new concerns. Referrals: Diaz Johnson MD [Primary Care Provider] - Michell Barrios MD [Staff Physician] - Disposition: HOME - Home Medications Comprehensive Discharge Medication List: Ambulatory Orders Fluticasone/Salmeterol [Advair Hfa 230-21 Mcg Inhaler] 12 gm IH DAILY 05/22/17 Omeprazole 40 mg PO DAILY 05/22/17 Simvastatin 40 mg PO DAILY 05/22/17 Tiotropium [place] [Spiriva] 2.5 mcg IH BID 05/22/17 Diltiazem Cd [Cardizem Cd -] 120 mg PO DAILY 30 Days #30 cap.cd.24h 01/26/19 Metoprolol Succinate [Toprol Xl] 50 mg PO BID 30 Days #60 tab.er.24h 01/26/19 Albuterol Sulfate Inhaler - [Ventolin HFA Inhaler -] 180 mcg IH Q4H PRN Furosemide 80 mg PO ASDIR #30 tablet 02/18/19 Lactobacillus Acidophilus [Bacid -] 1 each PO DAILY 7 Days #7 capsule 02/18/19 Apixaban [Eliquis -] 2.5 mg PO BID tablet 02/25/19 ATTENDING PHYSICIAN STATEMENT I saw and evaluated the patient. I reviewed the resident's note and discussed the case with the resident. I agree with the resident's findings and plan as documented. SUBJECTIVE: OBJECTIVE: ASSESSMENT AND PLAN:
--- NOTE | 2019-02-25 17:48 | PN ---
Teaching Attending Note Name of Resident: Mario Ramirez (Nephrology) ATTENDING PHYSICIAN STATEMENT I saw and evaluated the patient. I reviewed the resident's note and discussed the case with the resident. I agree with the resident's findings and plan as documented. Renal Pt is an 88 year old female with pmhx of esrd, copd, and chf who presents with shortness of breath. Her last HD was yesterday she is not compliant with diet or fluid intake. She denies chest pain. pmhx esrd chf copd allergeis asa family hx dm ros sob Current Medications Generic Name Dose Route Start Last Admin Trade Name Freq PRN Reason Stop Dose Admin Acetaminophen 650 mg 02/25/19 09:19 Tylenol - PO Q6H PRN PAIN Albuterol Sulfate 1 amp 02/25/19 14:06 Ventolin 0.083% Nebulizer Soln - NEB Q6H PRN SHORT OF BREATH/WHEEZING Apixaban 2.5 mg 02/25/19 10:00 02/25/19 09:48 Eliquis - PO 2.5 mg BID KESHAWN Administration Atorvastatin Calcium 20 mg 02/25/19 22:00 Lipitor - PO HS KESHAWN Budesonide/Formoterol Fumarate 2 puff 02/25/19 10:00 02/25/19 11:33 Symbicort 80/4.5mcg - IH 2 puff BID KESHAWN Administration Diltiazem HCl 120 mg 02/25/19 10:00 02/25/19 09:48 Cardizem Cd - PO 120 mg DAILY KESHAWN Administration Lactobacillus Acidophilus 1 tab 02/25/19 10:00 02/25/19 09:48 Bacid - PO 1 tab DAILY KESHAWN Administration Metoprolol Succinate 50 mg 02/25/19 10:00 02/25/19 13:43 Toprol Xl - PO Not Given BID KESHAWN Pantoprazole Sodium 40 mg 02/25/19 10:00 02/25/19 09:48 Protonix - PO 40 mg DAILY KESHAWN Administration Tiotropium [place] 2 puff 02/25/19 10:00 02/25/19 11:33 Spiriva Respimat IH 2 puff DAILY KESHAWN Administration Laboratory Tests 02/24/19 02/24/19 23:42 23:42 Hgb 8.7 L Sodium 134 L BUN 32.9 H Creatinine 3.6 H Last Vital Signs Temp Pulse Resp BP Pulse Ox 97.2 F L 72 20 96/63 95 02/25/19 08:30 02/25/19 08:30 02/25/19 08:30 02/25/19 08:30 02/25/19 08:30 cardio s1s2 pulm rhonchi GI soft, obese ext plus 2 edema neuro awake and alert Impression 1. ESRD 2. CHF 3. COPD 4. asthma 5. dyspnea 6. HTN 7. a-fib 8. fluid overload 9. CAD 10. cellulitis Plan - will arrange for HD today for volume removal - cxr is improved - discussed compliance with pt and family - family feel that her fluid intake has been difficult to control - she had HD set up as outpt and should go tomorrow if she is discharged - 80 mg of lasix on non HD days - elevate legs
--- NOTE | 2019-02-25 19:31 | PN ---
Teaching Attending Note Name of Resident: Jerardo Mar ATTENDING PHYSICIAN STATEMENT I saw and evaluated the patient. I reviewed the resident's note and discussed the case with the resident. I agree with the resident's findings and plan as documented. SUBJECTIVE: SOB improving but still has LE edema++. No chest pain/palpitations. No cough/sputum. No fever/chills. OBJECTIVE: Afebrile, Hemodynamically stable. spO2 95% on 2L via NC. Last Vital Signs Temp Pulse Resp BP Pulse Ox 97.5 F L 73 18 115/48 L 95 02/25/19 15:50 02/25/19 19:03 02/25/19 19:03 02/25/19 19:03 02/25/19 08:30 HEENT - Atraumatic, Normocephalic. Heart - S1, S2, RRR Lungs - basal crackles Abdomen - Soft, non-tender. Bowel Sounds normal. Extremities - Edema++ Laboratory Results - last 24 hr 02/24/19 02/24/19 02/24/19 23:42 23:42 23:42 WBC 7.1 RBC 3.33 L Hgb 8.7 L Hct 28.8 L MCV 86.6 MCH 26.3 MCHC 30.3 L RDW 21.5 H Plt Count 181 MPV 8.5 Absolute Neuts (auto) 5.1 Neutrophils % 72.4 Lymphocytes % 13.0 Monocytes % 11.6 H Eosinophils % 1.7 Basophils % 1.3 Nucleated RBC % 0 Hypochromia 1+ Platelet Estimate Decreased Polychromasia 1+ Poikilocytosis 1+ Anisocytosis 2+ Macrocytosis 2+ Spherocytes 1+ PT with INR 17.20 H INR 1.45 H Anticoagulation Therapy Puncture Site ABG pH ABG pCO2 at Pt Temp ABG pO2 at Pt Temp ABG HCO3 ABG O2 Sat (Measured) ABG O2 Content ABG Base Excess Ankit Test Carboxyhemoglobin Methemoglobin O2 Delivery Device Oxygen Flow Rate Vent Mode Vent Rate Mechanical Rate Pressure Support Vent Sodium 134 L Potassium 4.1 Chloride 97 L Carbon Dioxide 25 Anion Gap 12 BUN 32.9 H Creatinine 3.6 H Est GFR (CKD-EPI)AfAm 12.56 Est GFR (CKD-EPI)NonAf 10.83 Random Glucose 94 Calcium 8.8 Total Bilirubin 1.0 AST 29 ALT 9 L Alkaline Phosphatase 108 Creatine Kinase 82 Troponin I 0.02 B-Natriuretic Peptide 6194.4 H Total Protein 6.4 Albumin 3.2 L 02/25/19 00:28 WBC RBC Hgb Hct MCV MCH MCHC RDW Plt Count MPV Absolute Neuts (auto) Neutrophils % Lymphocytes % Monocytes % Eosinophils % Basophils % Nucleated RBC % Hypochromia Platelet Estimate Polychromasia Poikilocytosis Anisocytosis Macrocytosis Spherocytes PT with INR INR Anticoagulation Therapy No Result Required. Puncture Site Right brachial ABG pH 7.39 ABG pCO2 at Pt Temp 41.9 ABG pO2 at Pt Temp 110 H ABG HCO3 24.5 ABG O2 Sat (Measured) 98.0 ABG O2 Content 11.9 ABG Base Excess 0.1 Ankit Test Positive Carboxyhemoglobin 1.9 Methemoglobin < 1.0 O2 Delivery Device N/c Oxygen Flow Rate 3lpm Vent Mode No Result Required. Vent Rate No Result Required. Mechanical Rate No Result Required. Pressure Support Vent No Result Required. Sodium Potassium Chloride Carbon Dioxide Anion Gap BUN Creatinine Est GFR (CKD-EPI)AfAm Est GFR (CKD-EPI)NonAf Random Glucose Calcium Total Bilirubin AST ALT Alkaline Phosphatase Creatine Kinase Troponin I B-Natriuretic Peptide Total Protein Albumin Current Medications Generic Name Dose Route Start Last Admin Trade Name Freq PRN Reason Stop Dose Admin Acetaminophen 650 mg 02/25/19 09:19 Tylenol - PO Q6H PRN PAIN Albuterol Sulfate 1 amp 02/25/19 14:06 Ventolin 0.083% Nebulizer Soln - NEB Q6H PRN SHORT OF BREATH/WHEEZING Apixaban 2.5 mg 02/25/19 10:00 02/25/19 09:48 Eliquis - PO 2.5 mg BID KESHAWN Administration Atorvastatin Calcium 20 mg 02/25/19 22:00 Lipitor - PO HS KESHAWN Budesonide/Formoterol Fumarate 2 puff 02/25/19 10:00 02/25/19 11:33 Symbicort 80/4.5mcg - IH 2 puff BID KESHAWN Administration Diltiazem HCl 120 mg 02/25/19 10:00 02/25/19 09:48 Cardizem Cd - PO 120 mg DAILY KESHAWN Administration Lactobacillus Acidophilus 1 tab 02/25/19 10:00 02/25/19 09:48 Bacid - PO 1 tab DAILY KESHAWN Administration Metoprolol Succinate 50 mg 02/25/19 10:00 02/25/19 13:43 Toprol Xl - PO Not Given BID KESHAWN Pantoprazole Sodium 40 mg 02/25/19 10:00 02/25/19 09:48 Protonix - PO 40 mg DAILY KESHAWN Administration Tiotropium [place] 2 puff 02/25/19 10:00 02/25/19 11:33 Spiriva Respimat IH 2 puff DAILY KESHAWN Administration Home Medications Medication Instructions Recorded Fluticasone/Salmeterol [Advair Hfa 12 gm IH DAILY 05/22/17 230-21 Mcg Inhaler] Omeprazole 40 mg PO DAILY 05/22/17 Simvastatin 40 mg PO DAILY 05/22/17 Tiotropium [place] [Spiriva] 2.5 mcg IH BID 05/22/17 Diltiazem Cd [Cardizem Cd -] 120 mg PO DAILY 30 Days #30 01/26/19 cap.cd.24h Metoprolol Succinate [Toprol Xl] 50 mg PO BID 30 Days #60 tab.er.24h 01/26/19 Albuterol Sulfate Inhaler - 180 mcg IH Q4H PRN 02/14/19 [Ventolin HFA Inhaler -] Furosemide 80 mg PO ASDIR #30 tablet 02/18/19 Lactobacillus Acidophilus [Bacid -] 1 each PO DAILY 7 Days #7 capsule 02/18/19 Apixaban [Eliquis -] 2.5 mg PO BID tablet 02/25/19 ASSESSMENT AND PLAN: 88 year old female with history of chronic diastolic CHF, ESRD on HD (Saturday, , Saturday via right tunneled catheter), paroxysmal atrial fibrillation (on Eliquis), Hx CVA, Chronic Respiratory Failure sec to COPD, CAD, hypertension , hyperlpidemia, presents with complaint of shortness of breath and worsening LE edema, noted to be fluid overloaded. CXR - cardiomegaly and congestive changes 1. Fluid Overload secondary to ESRD Received HD yesterday but limited due to hypotension. Seen by Nephrology - for HD today and Lasix on non-HD days. Medically Stable for discharge after HD if BP ok. 2. HTN - resume home medications if BP allows - Metoprolol, Diltiazem 3. Atrial fibrillation - continue BB, CCB, Eliquis. 4. HLD - Continue Simvastatin 5. GERD - Continue Omperazole. 6. Chronic Respiratory Failure sec to COPD - Stable, no evidence of acute exacerbation. Continue Advair, Spiriva, albuterol PRN DVT Px - on Eliquis
[2019-02-25] MEDS ORDERED: ATORVASTATIN CA 20 MG TABLET (FP) PO SCH ×2 (22:00)
[2019-02-25] MEDS: APIXABAN 2.5 MG TABLET PO SCH (23:30)
[2019-02-25] MEDS: BUDESONIDE/FORMETEROL FUMARATE 80/4.5 mcg INHALER IH SCH (23:31)
[2019-02-26] MEDS ORDERED: ACETAMINOPHEN 325 MG TABLET (FP) PO ONE (00:57)
[2019-02-26 08:01] LABS: BASO % 1.6 % (0-2.0); EOS % 2.1 % (0-4.5); HEMATOCRIT 28.1 % (32.4-45.2); HEMOGLOBIN 8.7 GM/dL (10.7-15.3); MCH 26.8 pg (25.7-33.7); MCHC 30.9 g/dl (32.0-36.0); MEAN CELL VOLUME 86.8 fl (80-96); MEAN PLT VOLUME 8.3 fl (7.5-11.1); MONO % 13.4 % (3.8-10.2); NEUT % 68.9 % (42.8-82.8); PLATELET COUNT 203 K/MM3 (134-434); RBC 3.23 M/mm3 (3.60-5.2); RDW 20.7 % (11.6-15.6); WHITE BLOOD COUNT 7.1 K/mm3 (4.0-10.0)
[2019-02-26 08:33] LABS: ALBUMIN 3.7 g/dl (3.4-5.0); BILIRUBIN,TOTAL 1.2 mg/dL (0.2-1); BLOOD UREA NITROGEN 25.4 mg/dL (7-18); CALCIUM 9.1 mg/dL (8.5-10.1); PHOSPHOROUS 4.2 mg/dL (2.5-4.9); POTASSIUM 3.9 mmol/L (3.5-5.1); TOT PROT 6.7 g/dl (6.4-8.2)
[2019-02-26] MEDS ORDERED: EPOETIN ALFA 2,000 UNIT/1 ML VIAL IVPUSH ONE (08:36)
[2019-02-26] MEDS ORDERED: ACETAMINOPHEN 325 MG TABLET (FP) PO PRN (09:15)
[2019-02-26] MEDS ORDERED: PT OWN MED DRAWER 7, Y5N ONE (09:19)
[2019-02-26] MEDS ORDERED: PANTOPRAZOLE 40 MG TABLET (FP) PO SCH (10:00)
[2019-02-26] MEDS ORDERED: LACTOBACILLUS ACIDOPHILUS 1 TABLET PO SCH (10:00)
[2019-02-26] MEDS ORDERED: TIOTROPIUM BROMIDE 2.5 MCG (SPIRIVA) RESPIMAT INHALER IH SCH (10:00)
[2019-02-26] MEDS: ALBUMIN HUMAN 25% 12.5 GM/50 ML VIAL IVPB SCH ×4 (11:00→12:30)
[2019-02-26] MEDS ORDERED: EPOETIN ALFA 10,000 UNIT/1 ML VIAL IVPUSH ONE (11:00)
[2019-02-26] MEDS ORDERED: SODIUM CHLORIDE 250 ML IV PRN (11:00)
--- NOTE | 2019-02-26 11:23 | PN ---
Progress Note (short form) - Note Progress Note: PULMONARY Dialyzed last night and currently on HD. States breathing slightly improving. Still with leg swelling. Vital Signs Period Temp Pulse Resp BP Sys/Perez Pulse Ox Last 24 Hr 97.1 F-97.5 F 63-107 18-20 92-115/40-67 94-94 Intake & Output 02/23/19 02/24/19 02/25/19 02/26/19 23:59 23:59 23:59 23:59 Intake Total 700 460 Output Total 2500 Balance -1800 460 Weight 58.967 kg 65.907 kg Gen: mildly tachypneic at rest Heart: RRR Lung: decreased breath sounds at the bases Abd: soft, nontender Ext: + edema CBC, BMP 02/26/19 07:15 02/26/19 07:15 Active Medications Acetaminophen (Tylenol -) 650 mg PO Q6H PRN PRN Reason: PAIN LEVEL 1-5 Albumin Human (Albumin Human 25%) 12.5 gm IVPB Q30M [facility] Stop: 02/26/19 12:31 Albuterol Sulfate (Ventolin 0.083% Nebulizer Soln -) 1 amp NEB Q6H PRN PRN Reason: SHORT OF BREATH/WHEEZING Last Admin: 02/25/19 23:26 Dose: 1 amp Apixaban (Eliquis -) 2.5 mg PO BID [facility] Last Admin: 02/25/19 23:30 Dose: 2.5 mg Atorvastatin Calcium (Lipitor -) 20 mg PO HS [facility] Last Admin: 02/25/19 23:30 Dose: 20 mg Budesonide/Formoterol Fumarate (Symbicort 80/4.5mcg -) 2 puff IH BID [facility] Last Admin: 02/25/19 23:31 Dose: 2 puff Diltiazem HCl (Cardizem Cd -) 120 mg PO DAILY [facility] Sodium Chloride (Normal Saline -) 250 mls @ 3,000 mls/hr IV PRN PRN PRN Reason: Hypotension during Dialysis Stop: 02/27/19 10:59 Lactobacillus Acidophilus (Bacid -) 1 tab PO DAILY [facility] Metoprolol Succinate (Toprol Xl -) 50 mg PO BID [facility] Last Admin: 02/25/19 23:30 Dose: 50 mg Pantoprazole Sodium (Protonix -) 40 mg PO DAILY [facility] Tiotropium [place] (Spiriva Respimat) 2 puff IH DAILY KESHAWN A/P Acute on Chronic Diastolic Heart Failure ESRD on HD Volume Overload Pulmonary HTN Paroxysmal Atrial Fibrillation CAD HTN Hyperlipidemia h/o CVA - HD per renal with ultrafiltration - daily weights - O2 to keep SpO2 >90% - inhaled bronchodilators - BiPAP as needed to assist in work of breathing - rate control - continue anticoagulation
[2019-02-26 13:01] VITALS: TEMP 97.1
[2019-02-26] MEDS: APIXABAN 2.5 MG TABLET PO SCH (13:43)
[2019-02-26] MEDS: BUDESONIDE/FORMETEROL FUMARATE 80/4.5 mcg INHALER IH SCH (13:44)
[2019-02-26 14:02] VITALS: BP 116/70; PULSE 72
--- NOTE | 2019-02-26 14:18 | PN ---
Progress Note, Physician History of Present Illness: Pt seen and examined at bedside. She tolerated HD. She feels that her breathing is improved. - Current Medication List Current Medications: Active Medications Acetaminophen (Tylenol -) 650 mg PO Q6H PRN PRN Reason: PAIN LEVEL 1-5 Albuterol Sulfate (Ventolin 0.083% Nebulizer Soln -) 1 amp NEB Q6H PRN PRN Reason: SHORT OF BREATH/WHEEZING Last Admin: 02/25/19 23:26 Dose: 1 amp Apixaban (Eliquis -) 2.5 mg PO BID ON LICENSE OF [facility] Last Admin: 02/26/19 13:43 Dose: 2.5 mg Atorvastatin Calcium (Lipitor -) 20 mg PO HS ON LICENSE OF [facility] Last Admin: 02/25/19 23:30 Dose: 20 mg Budesonide/Formoterol Fumarate (Symbicort 80/4.5mcg -) 2 puff IH BID ON LICENSE OF [facility] Last Admin: 02/26/19 13:44 Dose: 2 puff Diltiazem HCl (Cardizem Cd -) 120 mg PO DAILY ON LICENSE OF [facility] Last Admin: 02/26/19 13:42 Dose: 120 mg Sodium Chloride (Normal Saline -) 250 mls @ 3,000 mls/hr IV PRN PRN PRN Reason: Hypotension during Dialysis Stop: 02/27/19 10:59 Lactobacillus Acidophilus (Bacid -) 1 tab PO DAILY ON LICENSE OF [facility] Last Admin: 02/26/19 13:42 Dose: 1 tab Metoprolol Succinate (Toprol Xl -) 50 mg PO BID ON LICENSE OF [facility] Last Admin: 02/26/19 13:43 Dose: 50 mg Pantoprazole Sodium (Protonix -) 40 mg PO DAILY ON LICENSE OF [facility] Last Admin: 02/26/19 13:43 Dose: 40 mg Tiotropium [place] (Spiriva Respimat) 2 puff IH DAILY ON LICENSE OF [facility] Last Admin: 02/26/19 13:44 Dose: 2 puff - Objective Vital Signs: Vital Signs Temperature 97.1 F L 02/26/19 10:00 Pulse Rate 72 02/26/19 13:20 Respiratory Rate 18 02/26/19 13:20 Blood Pressure 116/70 02/26/19 13:20 O2 Sat by Pulse Oximetry (%) 100 02/26/19 09:00 Constitutional: Yes: Calm Eyes: Yes: Conjunctiva Clear HENT: Yes: Atraumatic Neck: Yes: Supple Cardiovascular: Yes: S1, S2 Respiratory: Yes: CTA Bilaterally, On Nasal O2 Gastrointestinal: Yes: Soft Genitourinary: Yes: WNL Musculoskeletal: Yes: WNL Edema: Yes Edema: LLE: 1+, RLE: 1+ Neurological: Yes: Oriented Psychiatric: Yes: Oriented Labs: CBC, BMP 02/26/19 07:15 02/26/19 07:15 INR, PTT INR 1.45 (0.83-1.09) H 02/24/19 23:42 Assessment/Plan Current Medications Generic Name Dose Route Start Last Admin Trade Name Freq PRN Reason Stop Dose Admin Acetaminophen 650 mg 02/26/19 09:15 Tylenol - PO Q6H PRN PAIN LEVEL 1-5 Albuterol Sulfate 1 amp 02/25/19 21:01 02/25/19 23:26 Ventolin 0.083% Nebulizer Soln - NEB 1 amp Q6H PRN Administration SHORT OF BREATH/WHEEZING Apixaban 2.5 mg 02/25/19 22:00 02/26/19 13:43 Eliquis - PO 2.5 mg BID KESHAWN Administration Atorvastatin Calcium 20 mg 02/25/19 22:00 02/25/19 23:30 Lipitor - PO 20 mg HS KESHAWN Administration Budesonide/Formoterol Fumarate 2 puff 02/25/19 22:00 02/26/19 13:44 Symbicort 80/4.5mcg - IH 2 puff BID KESHAWN Administration Diltiazem HCl 120 mg 02/26/19 10:00 02/26/19 13:42 Cardizem Cd - PO 120 mg DAILY KESHAWN Administration Sodium Chloride 250 mls @ 3,000 mls/hr 02/26/19 11:00 Normal Saline - IV 02/27/19 10:59 PRN PRN Hypotension during Dialysis Lactobacillus Acidophilus 1 tab 02/26/19 10:00 02/26/19 13:42 Bacid - PO 1 tab DAILY KESHAWN Administration Metoprolol Succinate 50 mg 02/25/19 22:00 02/26/19 13:43 Toprol Xl - PO 50 mg BID KESHAWN Administration Pantoprazole Sodium 40 mg 02/26/19 10:00 02/26/19 13:43 Protonix - PO 40 mg DAILY KESHAWN Administration Tiotropium [place] 2 puff 02/26/19 10:00 02/26/19 13:44 Spiriva Respimat IH 2 puff DAILY KESHAWN Administration Impression 1. ESRD 2. CHF 3. COPD 4. asthma 5. dyspnea 6. HTN 7. a-fib 8. fluid overload 9. CAD 10. cellulitis Plan - pt tolerated HD - she has HD set up as outpt - lasix on non hd days - discussed diet and fluid restriction with pt and her family - elevate legs
--- NOTE | 2019-02-26 15:27 | PN ---
Teaching Attending Note Name of Resident: Jerardo Mar ATTENDING PHYSICIAN STATEMENT I saw and evaluated the patient. I reviewed the resident's note and discussed the case with the resident. I agree with the resident's findings and plan as documented. SUBJECTIVE: SOB improving. No chest pain/palpitations. No cough/sputum. No fever /chills. OBJECTIVE: Afebrile, Hemodynamically stable. SpO2 100% on 2L via NC. Last Vital Signs Temp Pulse Resp BP Pulse Ox 97.1 F L 72 18 116/70 100 02/26/19 10:00 02/26/19 13:20 02/26/19 13:20 02/26/19 13:20 02/26/19 09:00 Heart - S1, S2, RRR Lungs - mild decrease in air entry at bases. Abdomen - Soft, non-tender. Bowel Sounds normal. Extremities - Edema++ with venous stasis dermatitis. Laboratory Results - last 24 hr 02/26/19 02/26/19 07:15 07:15 WBC 7.1 RBC 3.23 L Hgb 8.7 L Hct 28.1 L MCV 86.8 MCH 26.8 MCHC 30.9 L RDW 20.7 H Plt Count 203 MPV 8.3 Absolute Neuts (auto) 4.9 Neutrophils % 68.9 Lymphocytes % 14.0 Monocytes % 13.4 H Eosinophils % 2.1 Basophils % 1.6 Nucleated RBC % 0 Sodium 136 Potassium 3.9 Chloride 99 Carbon Dioxide 27 Anion Gap 10 BUN 25.4 H Creatinine 3.0 H Est GFR (CKD-EPI)AfAm 15.65 Est GFR (CKD-EPI)NonAf 13.50 Random Glucose 92 Calcium 9.1 Phosphorus 4.2 Magnesium 2.0 Total Bilirubin 1.2 H AST 20 ALT 8 L Alkaline Phosphatase 102 Total Protein 6.7 Albumin 3.7 Current Medications Generic Name Dose Route Start Last Admin Trade Name Freq PRN Reason Stop Dose Admin Acetaminophen 650 mg 02/26/19 09:15 Tylenol - PO Q6H PRN PAIN LEVEL 1-5 Albuterol Sulfate 1 amp 02/25/19 21:01 02/25/19 23:26 Ventolin 0.083% Nebulizer Soln - NEB 1 amp Q6H PRN Administration SHORT OF BREATH/WHEEZING Apixaban 2.5 mg 02/25/19 22:00 02/26/19 13:43 Eliquis - PO 2.5 mg BID KESHAWN Administration Atorvastatin Calcium 20 mg 02/25/19 22:00 02/25/19 23:30 Lipitor - PO 20 mg HS KESHAWN Administration Budesonide/Formoterol Fumarate 2 puff 02/25/19 22:00 02/26/19 13:44 Symbicort 80/4.5mcg - IH 2 puff BID KESHAWN Administration Diltiazem HCl 120 mg 02/26/19 10:00 02/26/19 13:42 Cardizem Cd - PO 120 mg DAILY KESHAWN Administration Sodium Chloride 250 mls @ 3,000 mls/hr 02/26/19 11:00 Normal Saline - IV 02/27/19 10:59 PRN PRN Hypotension during Dialysis Lactobacillus Acidophilus 1 tab 02/26/19 10:00 02/26/19 13:42 Bacid - PO 1 tab DAILY KESHAWN Administration Metoprolol Succinate 50 mg 02/25/19 22:00 02/26/19 13:43 Toprol Xl - PO 50 mg BID KESHAWN Administration Pantoprazole Sodium 40 mg 02/26/19 10:00 02/26/19 13:43 Protonix - PO 40 mg DAILY KESHAWN Administration Tiotropium [place] 2 puff 02/26/19 10:00 02/26/19 13:44 Spiriva Respimat IH 2 puff DAILY KESHAWN Administration Home Medications Medication Instructions Recorded Fluticasone/Salmeterol [Advair Hfa 12 gm IH DAILY 05/22/17 230-21 Mcg Inhaler] Omeprazole 40 mg PO DAILY 05/22/17 Simvastatin 40 mg PO DAILY 05/22/17 Tiotropium [place] [Spiriva] 2.5 mcg IH BID 05/22/17 Diltiazem Cd [Cardizem Cd -] 120 mg PO DAILY 30 Days #30 01/26/19 cap.cd.24h Metoprolol Succinate [Toprol Xl] 50 mg PO BID 30 Days #60 tab.er.24h 01/26/19 Albuterol Sulfate Inhaler - 180 mcg IH Q4H PRN 02/14/19 [Ventolin HFA Inhaler -] Furosemide 80 mg PO ASDIR #30 tablet 02/18/19 Lactobacillus Acidophilus [Bacid -] 1 each PO DAILY 7 Days #7 capsule 02/18/19 Apixaban [Eliquis -] 2.5 mg PO BID tablet 02/25/19 ASSESSMENT AND PLAN: 88 year old female with history of chronic diastolic CHF, ESRD on HD (Saturday, , Saturday via right tunneled catheter), paroxysmal atrial fibrillation (on Eliquis), Hx CVA, Chronic Respiratory Failure sec to COPD, CAD, hypertension , hyperlpidemia, presents with complaint of shortness of breath and worsening LE edema, noted to be fluid overloaded. CXR - cardiomegaly and congestive changes 1. Fluid Overload secondary to ESRD Received HD yesterday and today. Seen by Nephrology - for Lasix on non-HD days. Medically Stable for discharge after HD today if BP ok. 2. HTN - continue Metoprolol, Diltiazem 3. Atrial fibrillation - continue BB, CCB, Eliquis. 4. HLD - Continue Simvastatin 5. GERD - Continue Omperazole. 6. Chronic Respiratory Failure sec to COPD - Stable, no evidence of acute exacerbation. Continue Advair, Spiriva, albuterol PRN DVT Px - on Eliquis
--- NOTE | 2019-02-26 15:59 | DS ---
Physical Exam: SUBJECTIVE: Patient seen and examined Endorsing improvement in SOB after HD. OBJECTIVE: Vital Signs Period Temp Pulse Resp BP Sys/Perez Pulse Ox Last 24 Hr 97.1 F-97.5 F 63-107 18-22 92-132/40-75 94-100 PHYSICAL EXAM GENERAL: The patient is awake, alert, and fully oriented, in no acute distress. HEAD: NC/AT EYES:sclera anicteric, conjunctiva clear. ENT: Ears normal, nares patent, moist mucous membranes. NECK: Trachea midline, full range of motion, supple. LUNGS: Breath sounds equal, mild crackles to lung bases b/l, no accessory muscle use. HEART: Regular rate and rhythm, S1, S2 without murmur, rub or gallop. ABDOMEN: Soft, nontender, nondistended, no guarding, no rebound, no hepatosplenomegaly, no masses. EXTREMITIES: 1+ pulses, warm, well-perfused. 1+ edema of BLE up to hips NEUROLOGICAL: Normal speech, gait not observed. PSYCH: Normal mood, normal affect. LABS Laboratory Results - last 24 hr 02/26/19 02/26/19 07:15 07:15 WBC 7.1 RBC 3.23 L Hgb 8.7 L Hct 28.1 L MCV 86.8 MCH 26.8 MCHC 30.9 L RDW 20.7 H Plt Count 203 MPV 8.3 Absolute Neuts (auto) 4.9 Neutrophils % 68.9 Lymphocytes % 14.0 Monocytes % 13.4 H Eosinophils % 2.1 Basophils % 1.6 Nucleated RBC % 0 Sodium 136 Potassium 3.9 Chloride 99 Carbon Dioxide 27 Anion Gap 10 BUN 25.4 H Creatinine 3.0 H Est GFR (CKD-EPI)AfAm 15.65 Est GFR (CKD-EPI)NonAf 13.50 Random Glucose 92 Calcium 9.1 Phosphorus 4.2 Magnesium 2.0 Total Bilirubin 1.2 H AST 20 ALT 8 L Alkaline Phosphatase 102 Total Protein 6.7 Albumin 3.7 HOSPITAL COURSE: 88F w/ pmh of HFpEF, ESRD on HD(T/R/S via right TC), pAF(on Eliquis), past CVA, CAD, HTN, HLD, presents with complaint of shortness of breath and worsening lower extremity edema after receiving HD. Date of Admission:02/25/19 Date of Discharge: 02/26/19 Discharge Summary Problems reviewed: Yes Reason For Visit: ACUTE ON CHRONIC DIASTOLIC CONGESTIVE HEART Condition: Stable - Instructions Diet, Activity, Other Instructions: You were evaluated in the hospital for shortness of breath. You were given medications to help urinate out excess body water. You also received dialysis while you were here. Medications: TAKE LASIX 80MG ONCE A DAY ON DAYS YOU DO NOT HAVE DIALYSIS. DO NOT TAKE LASIX ON DIALYSIS DAYS. Continue all your other home medications like before. Follow up: Dr. Johnson, primary care, within 1 week of discharge to check your legs. Dr. Barrios, nephrology. Resume your normal dialysis schedule(//Sat). Diet: It is important to eat a low salt diet and limit the amount of liquids you drink to 4 8oz cups a day. This will prevent fluid from building up in your body. Other instructions: Monitor your weight daily. If you notice a 2-3 pound weight gain in 4-5 days, call Dr. Johnson or Dr. Barrios. You can also go to the emergency room. Keep your legs elevated if possible to help the swelling in your legs. Return to the emergency room also if you have chest pain, difficulty breathing, or lightheadedness/dizziness or any new concerns. Referrals: Diaz Johnson MD [Primary Care Provider] - Michell Barrios MD [Staff Physician] - Disposition: HOME - Home Medications Comprehensive Discharge Medication List: Ambulatory Orders Fluticasone/Salmeterol [Advair Hfa 230-21 Mcg Inhaler] 12 gm IH DAILY 05/22/17 Omeprazole 40 mg PO DAILY 05/22/17 Simvastatin 40 mg PO DAILY 05/22/17 Tiotropium [place] [Spiriva] 2.5 mcg IH BID 05/22/17 Diltiazem Cd [Cardizem Cd -] 120 mg PO DAILY 30 Days #30 cap.cd.24h 01/26/19 Metoprolol Succinate [Toprol Xl] 50 mg PO BID 30 Days #60 tab.er.24h 01/26/19 Albuterol Sulfate Inhaler - [Ventolin HFA Inhaler -] 180 mcg IH Q4H PRN Furosemide 80 mg PO ASDIR #30 tablet 02/18/19 Lactobacillus Acidophilus [Bacid -] 1 each PO DAILY 7 Days #7 capsule 02/18/19 Apixaban [Eliquis -] 2.5 mg PO BID tablet 02/25/19 ATTENDING PHYSICIAN STATEMENT I saw and evaluated the patient. I reviewed the resident's note and discussed the case with the resident. I agree with the resident's findings and plan as documented. SUBJECTIVE: OBJECTIVE: ASSESSMENT AND PLAN:
== END 2019-02-26 15:18 | disposition home health service (06) | DRG 291 ==
LOC: JER 21:03 → JERBED 02-25 01:56 → J5S 02-25 19:48
PROVIDERS: ADMIT Internal Medicine
PROC: 5A1D70Z Performance of Urinary Filtration, Intermittent, Less than 6 Hours Per Day (ICD-10-PCS; principal; 2019-02-25)
DX: I13.2 Hypertensive heart and chronic kidney disease with heart failure and with stage 5 chronic kidney disease, or end stage renal disease (principal); N18.6 End stage renal disease; I50.33 Acute on chronic diastolic (congestive) heart failure; J96.10 Chronic respiratory failure, unspecified whether with hypoxia or hypercapnia; Z99.2 Dependence on renal dialysis; I25.10 Atherosclerotic heart disease of native coronary artery without angina pectoris; E78.5 Hyperlipidemia, unspecified; E87.70 Fluid overload, unspecified; I27.20 Pulmonary hypertension, unspecified; I48.0 Paroxysmal atrial fibrillation; K21.9 Gastro-esophageal reflux disease without esophagitis; J44.9 Chronic obstructive pulmonary disease, unspecified; D63.1 Anemia in chronic kidney disease
CPT/HCPCS: 36415; 36600; 71045-TC-FY; 80053; 82375; 82550; 82803; 83050; 83735; 83880; 84100; 84484; 85025; 85610; 93005; 93010; 94640; 97116-GP; 97162-GP; 99285-25; J0885; P9047

== ENCOUNTER 2019-02-27 05:35 | Emergency (ER) | payer OTHER ==
--- NOTE | 2019-02-27 05:39 | PDOC ---
History of Present Illness - General Stated Complaint: DIFFICULTY BREATHING Time Seen by Provider: 02/27/19 05:38 History Source: Patient Exam Limitations: No Limitations - History of Present Illness Initial Comments: 02/27/19 05:40 88 y/o female with a history of COPD on 3L O2, HFpEF, afib on eliquis, CAD, HTN , HLD, ESRD on dialysis (T, [place], Sat), and CVA who presents to the emergency department with SOB that awoken. Per the patient, she was recently discharged from the hospital. She received dialysis on , 02/25, and 02/24. The patient has a history of non compliance with adherence to diet (Admits to drinking copious amounts of water and consumption of salty food in the past). The patient states she is compliant with her medications. Denies chest pain. Denies the following: fevers, chills, nausea, vomiting, abdominal pain, diarrhea , and melena. Endorses bilateral leg swelling. Allergies: aspirin Past History - Past Medical History Allergies/Adverse Reactions: Allergies Allergy/AdvReac Type Severity Reaction Status Date / Time aspirin Allergy Verified 02/24/19 22:50 Home Medications: Ambulatory Orders Fluticasone/Salmeterol [Advair Hfa 230-21 Mcg Inhaler] 12 gm IH DAILY 05/22/17 Omeprazole 40 mg PO DAILY 05/22/17 Simvastatin 40 mg PO DAILY 05/22/17 Tiotropium [place] [Spiriva] 2.5 mcg IH BID 05/22/17 Diltiazem Cd [Cardizem Cd -] 120 mg PO DAILY 30 Days #30 cap.cd.24h 01/26/19 Metoprolol Succinate [Toprol Xl] 50 mg PO BID 30 Days #60 tab.er.24h 01/26/19 Furosemide 80 mg PO ASDIR #30 tablet 02/18/19 Lactobacillus Acidophilus [Bacid -] 1 each PO DAILY 7 Days #7 capsule 02/18/19 Apixaban [Eliquis -] 2.5 mg PO BID tablet 02/25/19 Acetaminophen [Tylenol .Regular Strength -] 650 mg PO Q6H PRN tablet 03/01/19 Albuterol 2.5/Ipratropium 0.5 [Duoneb -] 1 amp NEB Q6H PRN #120 amp 03/01/19 Albuterol Sulfate Inhaler - [Ventolin HFA Inhaler -] 2 puff IH Q4H PRN inhaler 03/01/19 Nebulizer and Compressor [Comp-Air Nebulizer System] 1 each ASDIR #1 each Anemia: No Asthma: Yes Cancer: No Cardiac Disorders: Yes (AF, PPM, CAD, [place]) CVA: Yes COPD: Yes CHF: Yes Dementia: No Diabetes: No GI Disorders: Yes (GASTRITIS) Disorders: No HTN: Yes Hypercholesterolemia: Yes Liver Disease: No Seizures: No Thyroid Disease: No - Surgical History Abdominal Surgery: No Appendectomy: No Cardiac Surgery: Yes (PACEMAKER) Cholecystectomy: No Lung Surgery: No Neurologic Surgery: No Orthopedic Surgery: No - Immunization History Td Vaccination: No TDAP Vaccination: No Immunization Up to Date: No - Psycho Social/Smoking Cessation Hx Smoking Status: Yes Smoking History: Former smoker Have you smoked in the past 12 months: No Number of Cigarettes Smoked Daily: 0 If you are a former smoker, when did you quit?: 25 years ago 'Breaking Loose' booklet given: 11/04/18 Hx Alcohol Use: No Drug/Substance Use Hx: No Substance Use Type: None Hx Substance Use Treatment: No Review of Systems - Review of Systems Able to Perform ROS?: Yes Is the patient limited Luxembourger proficient: No Constitutional: No: Chills, Diaphoresis, Fever, Weakness HEENTM: No: Eye Pain, Ear Pain, Nose Pain, Throat Pain, Mouth Pain Respiratory: Yes: Shortness of Breath, SOB at Rest. No: Cough, Hemoptysis Cardiac (ROS): No: Chest Pain, Lightheadedness, Palpitations, Syncope ABD/GI: No: Constipated, Diarrhea, Nausea, Rectal Bleeding, Vomiting, Tarry Stools : No: Burning, Dysuria, Hematuria Musculoskeletal: No: Back Pain, Joint Pain, Neck Pain Integumentary: No: Bruising, Erythema, Rash Neurological: No: Headache, Numbness, Tingling, Tremors Psychiatric: No: Change in Appetite Endocrine: No: Unexplained Weight Gain Hematologic/Lymphatic: No: Anemia *Physical Exam - Physical Exam General Appearance: Yes: Nourished, Appropriately Dressed, Obese. No: Apparent Distress, Intoxicated HEENT: positive: EOMI, JANETT, Normal Voice, Symmetrical, Pharynx Normal, Hearing Grossly Normal. negative: Pale Conjunctivae, Scleral Icterus (R), Scleral Icterus (L), Muffled/Hoarse voice, Pharyngeal Erythema, Tonsillar Exudate, Tonsillar Erythema, Nasal Congestion, Rhinorrhea, Sinus Tenderness, Excessive drooling Neck: positive: Trachea midline, Supple. negative: Tender, Lymphadenopathy (R) , Lymphadenopathy (L), Tender lateral, Tender midline Respiratory/Chest: positive: Decreased Breath Sounds, Crackles. negative: Chest Tender, Lungs Clear, Respiratory Distress, Accessory Muscle Use Cardiovascular: positive: Regular Rhythm, Regular Rate, S1, S2. negative: Systolic Murmur Gastrointestinal/Abdominal: positive: Normal Bowel Sounds, Flat, Soft. negative : Tender Lymphatic: negative: Adenopathy Musculoskeletal: positive: Normal Inspection. negative: CVA Tenderness, Vertebral Tenderness Extremity: positive: Normal Capillary Refill, Normal Range of Motion. negative : Normal Inspection (pitting edema noted bilaterally. 3+. erythema with sharp demarcation of the legs distal to the knee to the ankle. ), Tender Integumentary: positive: Normal Color, Dry, Warm Neurologic: positive: Fully Oriented, Alert, Normal Mood/Affect ED Treatment Course - LABORATORY CBC & Chemistry Diagram: 02/27/19 05:55 02/27/19 05:55 Medical Decision Making - Medical Decision Making 88 y/o female with a history of COPD on 3L O2, HFpEF, afib on eliquis, CAD, HTN , HLD, ESRD on dialysis (T, [place], Sat), and CVA who presents to the emergency department with SOB that awoken. Initial vitals: Initial Vital Signs Temp Pulse Resp BP Pulse Ox 97.4 F L 77 20 145/111 H 98 02/27/19 05:43 02/27/19 05:43 02/27/19 05:43 02/27/19 05:43 02/27/19 05:43 Work up: ddx: SOB secondary to CHF exacerbation vs fluid overload (likely more the case due to poor compliance of diet thus requiring multiple days of hemodialysis). patient was recently discharged (yesterday) and presents with SOB again. will obtain cbc, cmp, BNP, trops, Patient was signed out to day team Discharge - Discharge Information Problems reviewed: Yes Clinical Impression/Diagnosis: CHF (congestive heart failure) Qualifiers: Heart failure type: unspecified Heart failure chronicity: unspecified Qualified Code(s): I50.9 - Heart failure, unspecified Condition: Stable Disposition: HOME - Follow up/Referral Referrals: Diaz oJhnson MD [Primary Care Provider] - - Patient Discharge Instructions Patient Printed Discharge Instructions: DI for Heart Failure Additional Instructions: You were seen in the ED for shortness of breath You are set to have dialysis tomorrow and have been given medications here until you can be dialyzed. Return to the ED if you experience worsening shortness of breath, leg swelling, chest pain or any other concerning symptoms. - Post Discharge Activity
[2019-02-27 05:51] VITALS: BMI 54.1
--- NOTE | 2019-02-27 06:09 | PDOC ---
Attending Attestation - Resident Resident Name: LioBandar - ED Attending Attestation I have performed the following: I have examined & evaluated the patient, The case was reviewed & discussed with the resident, I agree w/resident's findings & plan, Exceptions are as noted - HPI HPI: 02/27/19 07:08 88F HTN, HLD, CAD, AFib on AC, COPD, ESRD HD tts here with acutely worsening SOB that woke her from sleep. Patient was recently admitted for similar presentation. No n/v, f/c, d/c, sick contacts. - Physicial Exam PE: 02/27/19 07:10 Agree with exam as documented by resident - Medical Decision Making 02/27/19 07:11 SOB 2/2 fluid overload, patient non-compliant with diet recommendations f/u labs, cxr, ekg will need admisison for optimization
[2019-02-27 06:10] LABS: BASO % 0.9 % (0-2.0); EOS % 1.2 % (0-4.5); HEMATOCRIT 30.1 % (32.4-45.2); HEMOGLOBIN 9.3 GM/dL (10.7-15.3); MCH 26.7 pg (25.7-33.7); MCHC 30.7 g/dl (32.0-36.0); MEAN PLT VOLUME 8.2 fl (7.5-11.1); MONO % 15.5 % (3.8-10.2); NEUT % 66.4 % (42.8-82.8); PLATELET COUNT 192 K/MM3 (134-434); RBC 3.46 M/mm3 (3.60-5.2); RDW 20.4 % (11.6-15.6); WHITE BLOOD COUNT 6.4 K/mm3 (4.0-10.0)
[2019-02-27] MEDS ORDERED: ACETAMINOPHEN 325 MG TABLET (FP) PO ONE (06:24)
[2019-02-27 06:25] LABS: VENOUS PC02 56.2 mmHg (38-52); VENOUS PH 7.35 (7.31-7.41)
[2019-02-27] MEDS ORDERED: ACETAMINOPHEN 325 MG TABLET (FP) ONE (06:26)
[2019-02-27 06:32] LABS: VENOUS PO2 < 49 mmHg (28-48)
[2019-02-27 06:40] LABS: ALBUMIN 3.6 g/dl (3.4-5.0); BILIRUBIN,TOTAL 0.9 mg/dL (0.2-1); BLOOD UREA NITROGEN 20.4 mg/dL (7-18); CALCIUM 9.2 mg/dL (8.5-10.1); CREATININE 2.9 mg/dL (0.55-1.3); N-TERMINAL BNP 7523.3 pg/ml (5-450); TOT PROT 6.7 g/dl (6.4-8.2)
[2019-02-27] MEDS ORDERED: FUROSEMIDE 40 MG TABLET (FP) PO ONE (09:50)
[2019-02-27] MEDS ORDERED: FUROSEMIDE 40 MG TABLET (FP) ONE (09:51)
--- NOTE | 2019-02-27 09:56 | PDOC ---
*Physical Exam - Vital Signs Last Vital Signs Temp Pulse Resp BP Pulse Ox 97.4 F L 78 16 101/55 L 100 02/27/19 05:43 02/27/19 07:40 02/27/19 07:40 02/27/19 07:40 02/27/19 07:40 ED Treatment Course - LABORATORY CBC & Chemistry Diagram: 02/27/19 05:55 02/27/19 05:55 - ADDITIONAL ORDERS Additional order review: Laboratory Results 02/27/19 02/27/19 02/27/19 05:55 05:55 05:55 VBG pH 7.35 POC VBG pCO2 56.2 H POC VBG pO2 < 49 H VBG HCO3 30.2 H VBG O2 Sat (Daniella) 60.5 L VBG Base Excess 4.3 H Sodium 137 Potassium 4.0 Chloride 100 Carbon Dioxide 30 Anion Gap 8 BUN 20.4 H Creatinine 2.9 H Est GFR (CKD-EPI)AfAm 16.31 Est GFR (CKD-EPI)NonAf 14.07 Random Glucose 105 Calcium 9.2 Total Bilirubin 0.9 AST 25 ALT 9 L Alkaline Phosphatase 109 Creatine Kinase 93 Troponin I 0.02 B-Natriuretic Peptide 7523.3 H Total Protein 6.7 Albumin 3.6 02/27/19 05:55 RBC 3.46 L MCV 87.0 MCHC 30.7 L RDW 20.4 H MPV 8.2 Neutrophils % 66.4 Lymphocytes % 16.0 Monocytes % 15.5 H Eosinophils % 1.2 Basophils % 0.9 - Medications Given in the ED: ED Medications Discontinued Medications Generic Name Dose Route Start Last Admin Trade Name Freq PRN Reason Stop Dose Admin Acetaminophen 975 mg 02/27/19 06:24 02/27/19 06:30 Tylenol - PO 02/27/19 06:25 975 mg ONCE ONE Administration Medical Decision Making - Medical Decision Making 02/27/19 09:52 Patient signed out by overnight team Discussed case with admitted team who consulted Dr. Bruno Per Dr. Bruno patient should be diuresed until dialysis tomorrow Patient observed bp 136/104 sat 99 on home 3L NC Will dose 40 po lasix to hold patient until she can be dialysed tomorrow Discharge - Discharge Information Problems reviewed: Yes Clinical Impression/Diagnosis: CHF (congestive heart failure) Condition: Stable Disposition: HOME - Admission No - Follow up/Referral Referrals: Diaz Johnson MD [Primary Care Provider] - - Patient Discharge Instructions Patient Printed Discharge Instructions: DI for Heart Failure Additional Instructions: You were seen in the ED for shortness of breath You are set to have dialysis tomorrow and have been given medications here until you can be dialyzed. Return to the ED if you experience worsening shortness of breath, leg swelling, chest pain or any other concerning symptoms. - Post Discharge Activity
--- NOTE | 2019-02-27 10:03 | CONSULT ---
Consultation: REQUESTING PROVIDER: Dr. Ponce/Dr. Beltran CONSULT REQUEST: We have been asked to medically evaluate this patient for shortness of breath. HISTORY OF PRESENT ILLNESS: 88F w/ pmhx of heart failure with preserved ejection fraction, ESRD on HD ( Saturday, , Saturday; right tunneled catheter), paroxysmal atrial fibrillation (on Eliquis), past CVA, coronary artery disease, HTN/HLD, presents with complaints of shortness of breath. Granddaughter present at bedside states at 5am pt woke up from sleep screaming with complaints of sob. Of note, pt was recently discharged yesterday 02/26, treated for CHF exacerbation and underwent dialysis on 02/24, 02/25, 02/26. She was seen by nephro during most recent admission with recommendation to continue dialysis on , , Sat and to continue taking Lasix on non-HD days. Upon my evaluation of the patient in the ED, pt was seen comfortable, on 3L O2 NC satting 99-100% in no acute respiratory distress. Dr. Barrios was contacted for further recommendation and advised dialysis tomorrow (Saturday) to continue with pt's normal schedule. I discussed further observation of pt by ED team to assess respiratory and hemodynamic status prior to possible admission. REVIEW OF SYSTEMS: CONSTITUTIONAL: Absent: fever, chills, diaphoresis, generalized weakness, malaise, loss of appetite, weight change HEENT: Absent: rhinorrhea, nasal congestion, throat pain, throat swelling, difficulty swallowing, mouth swelling, ear pain, eye pain, visual changes CARDIOVASCULAR: +b/l LE edema Absent: chest pain, syncope, palpitations, irregular heart rate, lightheadedness RESPIRATORY: +shortness of breath Absent: cough, dyspnea with exertion, orthopnea, wheezing, stridor, hemoptysis GASTROINTESTINAL: Absent: abdominal pain, abdominal distension, nausea, vomiting, diarrhea, constipation, melena, hematochezia GENITOURINARY: Absent: dysuria, frequency, urgency, hesitancy, hematuria, flank pain, genital pain MUSCULOSKELETAL: Absent: myalgia, arthralgia, joint swelling, back pain, neck pain SKIN: Absent: rash, itching, pallor HEMATOLOGIC/IMMUNOLOGIC: Absent: easy bleeding, easy bruising, lymphadenopathy, frequent infections ENDOCRINE: Absent: unexplained weight gain, unexplained weight loss, heat intolerance, cold intolerance NEUROLOGIC: Absent: headache, focal weakness or paresthesias, dizziness, unsteady gait, seizure, mental status changes, bladder or bowel incontinence PSYCHIATRIC: Absent: anxiety, depression, suicidal or homicidal ideation, hallucinations. PHYSICAL EXAMINATION Vital Signs - 24 hr 02/27/19 02/27/19 05:43 07:40 Temperature 97.4 F L Pulse Rate 77 Pulse Rate [ 78 Left Radial] Respiratory 20 16 Rate Blood Pressure 145/111 H Blood Pressure 101/55 L [Left Arm] O2 Sat by Pulse 98 100 Oximetry (%) GENERAL: Chilean-speaking female, in no acute distress. Mildly uncom HEENT: AT/NC. EOMI. MMM NECK: Normal range of motion, supple without lymphadenopathy, JVD, or masses. LUNGS: Good inspiratory effort. B/l crackles heard throughout. Symmetric chest rise. Speaks in complete sentences. On 3L NC. HEART: RRR. Normal S1, S2. No murmurs noted. ABDOMEN: Obese, soft, NT/ND. Normoactive bowel sounds. MUSCULOSKELETAL: Normal range of motion at all joints. No bony deformities or tenderness. No CVA tenderness. EXTREMITIES: 2+ pitting edema noted b/l. Redness on b/l lower extremities. NEUROLOGICAL: Cranial nerves II-XII intact. Normal speech. SKIN: Warm, dry, normal turgor, no rashes or lesions noted. Laboratory Results - last 24 hr 02/27/19 02/27/19 02/27/19 05:55 05:55 05:55 WBC 6.4 RBC 3.46 L Hgb 9.3 L Hct 30.1 L MCV 87.0 MCH 26.7 MCHC 30.7 L RDW 20.4 H Plt Count 192 MPV 8.2 Absolute Neuts (auto) 4.3 Neutrophils % 66.4 Lymphocytes % 16.0 Monocytes % 15.5 H Eosinophils % 1.2 Basophils % 0.9 Nucleated RBC % 0 VBG pH POC VBG pCO2 POC VBG pO2 VBG HCO3 VBG O2 Sat (Daniella) VBG Base Excess Sodium 137 Potassium 4.0 Chloride 100 Carbon Dioxide 30 Anion Gap 8 BUN 20.4 H Creatinine 2.9 H Est GFR (CKD-EPI)AfAm 16.31 Est GFR (CKD-EPI)NonAf 14.07 Random Glucose 105 Calcium 9.2 Total Bilirubin 0.9 AST 25 ALT 9 L Alkaline Phosphatase 109 Creatine Kinase 93 Troponin I 0.02 B-Natriuretic Peptide 7523.3 H Total Protein 6.7 Albumin 3.6 02/27/19 05:55 WBC RBC Hgb Hct MCV MCH MCHC RDW Plt Count MPV Absolute Neuts (auto) Neutrophils % Lymphocytes % Monocytes % Eosinophils % Basophils % Nucleated RBC % VBG pH 7.35 POC VBG pCO2 56.2 H POC VBG pO2 < 49 H VBG HCO3 30.2 H VBG O2 Sat (Daniella) 60.5 L VBG Base Excess 4.3 H Sodium Potassium Chloride Carbon Dioxide Anion Gap BUN Creatinine Est GFR (CKD-EPI)AfAm Est GFR (CKD-EPI)NonAf Random Glucose Calcium Total Bilirubin AST ALT Alkaline Phosphatase Creatine Kinase Troponin I B-Natriuretic Peptide Total Protein Albumin ASSESSMENT/PLAN: 88F w/ pmhx of heart failure with preserved ejection fraction, ESRD on HD ( Saturday, , Saturday; right tunneled catheter), paroxysmal atrial fibrillation (on ), past CVA, coronary artery disease, HTN/HLD, presents with complaints of shortness of breath. Patient was seen in ED for further medicine evaluation. She was seen comfortable sitting in chair, without signs of respiratory distress, satting in 99-100% on home 3L O2. CXR reviewed today was unchanged from previous on . No signs of significant fluid overload at this time. Nephro was contacted and made aware of patient with recommendation to have patient continue next scheduled dialysis tomorrow with no need for emergent dialysis today. Repeat vitals done showed BP of 134/104. I spoke to pt's granddaughter in depth regarding need to comply with medications as well as diet recommendations given to patient upon most recent discharge from the hospital. I strongly advised regular check up with her PCP, Dr. Johnson as well as her outpatient litigation assistant, Dr. Roa. I also advised pt's family to obtain appropriate sleeping accommodations in the household to avoid further episodes of shortness of breath as laying flat worsens her symptoms at night. Additionally, I discussed recommendation for [facility] [employer] and to obtain appropriate paperwork from insurance to have PCP fill out. Family and pt both verbalized understanding. Dispo: We will continue to follow the patient. Thank you for this consultative opportunity. <Claudine Mcguire - Last Filed: 03/02/19 08:45> Consultation: ATTENDING ATTESTATION Patient already left the ED by the time I attended her assigned ED bed. I have reviewed the chart and agree with the resident's assessment and plan as outlined above. I have discussed the case in detail with Dr. Avila who does not believe the patient to need emergent HD today and will maintain her normal HD schedule for HD tomorrow. <Giacomo Ramirez - Last Filed: 03/02/19 19:22> Visit type - Emergency Visit Emergency Visit: Yes Care time: The patient presented to the Emergency Department on the above date and was hospitalized for further evaluation of their emergent condition. - New Patient This patient is new to me today: Yes Date on this admission: 02/27/19 - Critical Care Critical Care patient: No <Claudine Mcguire - Last Filed: 03/02/19 08:45> ATTENDING PHYSICIAN STATEMENT I saw and evaluated the patient. I reviewed the resident's note and discussed the case with the resident. I agree with the resident's findings and plan as documented. SUBJECTIVE: OBJECTIVE: ASSESSMENT AND PLAN: <Claudine Mcguire - Last Filed: 03/02/19 08:45> ATTENDING PHYSICIAN STATEMENT I saw and evaluated the patient. I reviewed the resident's note and discussed the case with the resident. I agree with the resident's findings and plan as documented. SUBJECTIVE: OBJECTIVE: ASSESSMENT AND PLAN: <Giacomo Ramirez - Last Filed: 03/02/19 19:22>
[2019-02-27 10:14] VITALS: BP 103/57; PULSE 65; TEMP 98.2
--- NOTE | 2019-02-27 13:25 | EKG ---
Test Reason : Blood Pressure : / mmHG Vent. Rate : 073 BPM Atrial Rate : 074 BPM P-R Int : 000 ms QRS Dur : 138 ms QT Int : 458 ms P-R-T Axes : 000 077 231 degrees QTc Int : 504 ms ATRIAL FIBRILLATION WITH A DEMAND PACEMAKER POSSIBLE LATERAL INFARCT , AGE UNDETERMINED T WAVE ABNORMALITY, CONSIDER INFERIOR ISCHEMIA ABNORMAL ECG Confirmed by CORNEL HOANG MD ([id number]) on 02/27/2019 1:25:36 PM Referred By: Confirmed By:CORNEL HOANG MD
== END 2019-02-27 10:44 | disposition home or self-care (01) ==
LOC: JER 05:35
DX: I13.2 Hypertensive heart and chronic kidney disease with heart failure and with stage 5 chronic kidney disease, or end stage renal disease (principal); I50.9 Heart failure, unspecified; I25.10 Atherosclerotic heart disease of native coronary artery without angina pectoris; N18.6 End stage renal disease; I50.89 Other heart failure; N17.8 Other acute kidney failure; Z99.2 Dependence on renal dialysis; Z87.891 Personal history of nicotine dependence; I48.0 Paroxysmal atrial fibrillation; Z79.01 Long term (current) use of anticoagulants; I25.2 Old myocardial infarction; Z95.0 Presence of cardiac pacemaker; E78.5 Hyperlipidemia, unspecified; J44.9 Chronic obstructive pulmonary disease, unspecified; J45.998 Other asthma; Z99.81 Dependence on supplemental oxygen; Z86.73 Personal history of transient ischemic attack (TIA), and cerebral infarction without residual deficits; Z88.6 Allergy status to analgesic agent
CPT/HCPCS: 36415; 71045-TC-FY; 80053; 82550; 82803; 83880; 84484; 85025; 93005; 93010; 99284-25

== ENCOUNTER 2019-02-27 17:50 | Inpatient (IN) | payer OTHER ==
[2019-02-27] MEDS ORDERED: ALBUTEROL SO4 2.5/IPRATROPIUM 0.5 INH SOL 3 ML VIAL.NEB. NEB ONE ×2 (18:20→19:27)
[2019-02-27] MEDS ORDERED: DEXAMETHASONE SOD PHOSPHATE 10 MG/1 ML VIAL ONE (18:21)
--- NOTE | 2019-02-27 18:30 | PDOC ---
History of Present Illness - General Chief Complaint: Shortness of Breath Stated Complaint: DIFF BREATHING Time Seen by Provider: 02/27/19 18:12 - History of Present Illness Initial Comments: Ms. Owen is a 88 y/o female with PMH significant for COPD, home O2 3L, a- fib, on eliquis, CHF, CAD, HTN, HLD, ESRD on dialysis (T//Sat), CVA, presenting with shortness of breath that started a couple hours ago during the afternoon. Patient was seen in the ED for similar (SOB that woke up her up this morning, given 40 lasix PO and plan to dialyze tomorrow). Per records, patient is minimally adherent to diet, with increased fluid and sodium intake. Past History - Past Medical History Allergies/Adverse Reactions: Allergies Allergy/AdvReac Type Severity Reaction Status Date / Time aspirin Allergy Verified 02/24/19 22:50 Home Medications: Ambulatory Orders Fluticasone/Salmeterol [Advair Hfa 230-21 Mcg Inhaler] 12 gm IH DAILY 05/22/17 Omeprazole 40 mg PO DAILY 05/22/17 Simvastatin 40 mg PO DAILY 05/22/17 Tiotropium [place] [Spiriva] 2.5 mcg IH BID 05/22/17 Diltiazem Cd [Cardizem Cd -] 120 mg PO DAILY 30 Days #30 cap.cd.24h 01/26/19 Metoprolol Succinate [Toprol Xl] 50 mg PO BID 30 Days #60 tab.er.24h 01/26/19 Albuterol Sulfate Inhaler - [Ventolin HFA Inhaler -] 180 mcg IH Q4H PRN Furosemide 80 mg PO ASDIR #30 tablet 02/18/19 Lactobacillus Acidophilus [Bacid -] 1 each PO DAILY 7 Days #7 capsule 02/18/19 Apixaban [Eliquis -] 2.5 mg PO BID tablet 02/25/19 Anemia: No Asthma: Yes Cancer: No Cardiac Disorders: Yes (AF, PPM, CAD, PA) CVA: Yes COPD: Yes CHF: Yes Dementia: No Diabetes: No GI Disorders: Yes (GASTRITIS) Disorders: No HTN: Yes Hypercholesterolemia: Yes Liver Disease: No Seizures: No Thyroid Disease: No - Surgical History Abdominal Surgery: No Appendectomy: No Cardiac Surgery: Yes (PACEMAKER) Cholecystectomy: No Lung Surgery: No Neurologic Surgery: No Orthopedic Surgery: No - Immunization History Td Vaccination: No TDAP Vaccination: No Immunization Up to Date: No - Psycho Social/Smoking Cessation Hx Smoking Status: Yes Smoking History: Former smoker Have you smoked in the past 12 months: No Number of Cigarettes Smoked Daily: 0 If you are a former smoker, when did you quit?: 25 years ago Information on smoking cessation initiated: No 'Breaking Loose' booklet given: 11/04/18 Hx Alcohol Use: No Drug/Substance Use Hx: No Substance Use Type: None Hx Substance Use Treatment: No Respiratory Specific PMHX - Complaint Specific PMHX Hx Angina: No Review of Systems - Review of Systems Comments:: GENERAL/CONSTITUTIONAL: No fever or chills. No weakness._ HEAD, EYES, EARS, NOSE AND THROAT: No change in vision. No change in hearing. No sore throat._ CARDIOVASCULAR: No chest pain. Reports shortness of breath. Reports orthopnea. RESPIRATORY: Denies cough, hemoptysis_ GASTROINTESTINAL: No nausea, vomiting, diarrhea or constipation._ GENITOURINARY: No dysuria, frequency, or change in urination._ MUSCULOSKELETAL: Reports lower leg swelling (chronic). No neck or back pain._ SKIN: No rash_ NEUROLOGIC: No headache, vertigo, loss of consciousness, or change in strength/ sensation._ ENDOCRINE: No increased thirst. No abnormal weight change_ HEMATOLOGIC/LYMPHATIC: No anemia, easy bleeding, or history of blood clots._ ALLERGIC/IMMUNOLOGIC: No hives or skin allergy._ *Physical Exam - Vital Signs Last Vital Signs Temp Pulse Resp BP Pulse Ox 97.5 F L 81 22 H 105/72 97 02/27/19 17:55 02/27/19 17:55 02/27/19 17:55 02/27/19 17:55 02/27/19 17:55 - Physical Exam Comments: GENERAL: Awake, alert, and oriented, in no acute distress_ HEAD: No signs of trauma, normocephalic, atraumatic _ EYES: PERRLA, EOMI, sclera anicteric, conjunctiva clear_ ENT: Hearing grossly normal, nares patent, oropharynx clear without exudates. No uvular deviation. Moist mucosa_ NECK: Normal ROM, supple, no lymphadenopathy, JVD, or masses_ LUNGS: On 3L NC, bibasilar crackles, mild wheezes bilaterally. HEART: Irregular, normal S1 and S2, no murmurs appreciated, peripheral pulses normal and equal bilaterally._ ABDOMEN: Soft, nontender, normoactive bowel sounds. No guarding, no rebound. No masses_ EXTREMITIES: Normal range of motion. No clubbing or cyanosis. Bilateral pitting edema 3+. Mild redness in bilateral lower extremities. NEUROLOGICAL: Cranial nerves II through XII grossly intact. Normal speech, no focal sensorimotor deficits _ SKIN: Warm, Dry, normal turgor, no rashes or lesions noted. ED Treatment Course - LABORATORY CBC & Chemistry Diagram: 02/28/19 05:20 02/28/19 05:20 Medical Decision Making - Medical Decision Making 02/27/19 18:45 88F with hx of CHF, COPD, a-fib, presenting with shortness of breath that started a couple hours ago this afternoon. Seen here for same this morning and was given 40 lasix PO. Received dialysis e, Sat, [facility]. Plan to give 80 lasix IV and admit for dialysis tomorrow. 02/27/19 18:53 EKG shows 88 bpm, LBBB, no ST elevation/depression, QTc 513. 02/27/19 20:35 Discussed with the hospitalist who agrees to admit the patient. Discharge - Discharge Information Problems reviewed: Yes Clinical Impression/Diagnosis: CHF (congestive heart failure) Qualifiers: Heart failure type: unspecified Heart failure chronicity: unspecified Qualified Code(s): I50.9 - Heart failure, unspecified - Follow up/Referral - Patient Discharge Instructions - Post Discharge Activity
[2019-02-27] MEDS ORDERED: FUROSEMIDE 40 MG/4 ML INJECTABLE VIAL IVPUSH ONE (18:38)
[2019-02-27] MEDS ORDERED: FUROSEMIDE 40 MG/4 ML INJECTABLE VIAL ONE (18:45)
--- NOTE | 2019-02-27 18:55 | PDOC ---
Documentation entered by Lesvia Rebolledo SCRIBE, acting as scribe for David Colon MD. David Colon MD: This documentation has been prepared by the Kesha garrett Adrianna, SCRIBE, under my direction and personally reviewed by me in its entirety. I confirm that the documentation accurately reflects all work, treatment, procedures, and medical decision making performed by me. Attending Attestation - Resident Resident Name: Ngoc WangMelvin - HPI HPI: 88 y.o F, with PMH of COPD (on 3L home O2), HFpEF, Afib (on eliquis_, CAD, HTN, HLD, ESRD (on dialysis T, [place], Sat), and CVA, presenting with SOB. Patient complains of SOB upon waking up. She was seen in the ED earlier today without any acute pathology, but denies any change in her symptoms. Allergies: aspirin Surgical History: pacemaker Social History: Former smoker (quit 25 years ago). Denies EtOH or illicit drug use PCP: Dr. Johnson - Physicial Exam PE: 02/27/19 18:52 Patient is awake and alert, obese, in mild distress Patient is on 3 L via nasal cannula with active saturation noted to be 96% Normal cephalic, atraumatic Positive JVD Conjunctiva are pink Lungs: Decreased air entry bilaterally, no crackles/wheezing/rhonchi Irregularly irregular +2 pitting edema of lower extremity's bilaterally - Medical Decision Making 02/27/19 18:54 Patient is an 88-year-old female with multiple comorbidities who presents with recurrent shortness of breath. Patient was seen and discharged earlier in the day after being administered 40 mg of Lasix p.o. with instructions to follow-up for outpatient dialysis in 24 hours. Patient's hemodynamically stable with decreased air entry bilaterally. EKG is paced without evidence of hyperacute T waves. Will administer IV Lasix. Will admit for inpatient dialysis.
[2019-02-27] MEDS ORDERED: ALBUTEROL SO4 8 GM HFA INHALER IH PRN (20:41)
--- NOTE | 2019-02-27 20:42 | HP ---
CHIEF COMPLAINT: shortness of breath PCP: Dr. Franklin HISTORY OF PRESENT ILLNESS: Patient is a 88 y/o female with a history of COPD on 3L O2, HFpEF, afib on eliquis, CAD, HTN, HLD, ESRD on dialysis (, Sat, Sat), and CVA who presents for shortness of breath. Patient was discharged from the hospital yesterday and represented to the hospital today. She was admitted for CHF exacerbation and began dialysis to help her anasarca. She was discharged with a schedule and follow up and continue her home medication/ Patient's last dialysis was . She presented to the ED due to worsening shortness of breath. While in the ED patient was given 80 of lasix. Patient is anuric. Denies headache, nausea, vomiting, chest pain. Only complains of shortness of breath and worsening swelling. ER course was notable for: (1) lasix 80 IV (2) (3) Recent Travel: denies PAST MEDICAL HISTORY: COPD on 3L O2, HFpEF, afib on eliquis, CAD, HTN, HLD, ESRD on dialysis (, Sat, Sat), and CVA PAST SURGICAL HISTORY: pacemaker placement Social History: Smoking: former smoker Alcohol: denies Drugs: denies Allergies aspirin Allergy (Verified 02/24/19 22:50) HOME MEDICATIONS: Home Medications Medication Instructions Recorded Fluticasone/Salmeterol [Advair Hfa 12 gm IH DAILY 05/22/17 230-21 Mcg Inhaler] Omeprazole 40 mg PO DAILY 05/22/17 Simvastatin 40 mg PO DAILY 05/22/17 Tiotropium [place] [Spiriva] 2.5 mcg IH BID 05/22/17 Diltiazem Cd [Cardizem Cd -] 120 mg PO DAILY 30 Days #30 01/26/19 cap.cd.24h Metoprolol Succinate [Toprol Xl] 50 mg PO BID 30 Days #60 tab.er.24h 01/26/19 Albuterol Sulfate Inhaler - 180 mcg IH Q4H PRN 02/14/19 [Ventolin HFA Inhaler -] Furosemide 80 mg PO ASDIR #30 tablet 02/18/19 Lactobacillus Acidophilus [Bacid -] 1 each PO DAILY 7 Days #7 capsule 02/18/19 Apixaban [Eliquis -] 2.5 mg PO BID tablet 02/25/19 REVIEW OF SYSTEMS CONSTITUTIONAL: Absent: fever, chills, diaphoresis, generalized weakness, malaise, loss of appetite, weight change HEENT: Absent: rhinorrhea, nasal congestion, throat pain, throat swelling, difficulty swallowing, mouth swelling, ear pain, eye pain, visual changes CARDIOVASCULAR: Absent: chest pain, syncope, palpitations, irregular heart rate, lightheadedness , peripheral edema RESPIRATORY: shortness of breath Absent: cough, dyspnea with exertion, orthopnea, wheezing, stridor, hemoptysis GASTROINTESTINAL: Absent: abdominal pain, abdominal distension, nausea, vomiting, diarrhea, constipation, melena, hematochezia GENITOURINARY: Absent: dysuria, frequency, urgency, hesitancy, hematuria, flank pain, genital pain MUSCULOSKELETAL: Absent: myalgia, arthralgia, joint swelling, back pain, neck pain SKIN: Absent: rash, itching, pallor HEMATOLOGIC/IMMUNOLOGIC: Absent: easy bleeding, easy bruising, lymphadenopathy, frequent infections ENDOCRINE: Absent: unexplained weight gain, unexplained weight loss, heat intolerance, cold intolerance NEUROLOGIC: Absent: headache, focal weakness or paresthesias, dizziness, unsteady gait, seizure, mental status changes, bladder or bowel incontinence PSYCHIATRIC: Absent: anxiety, depression, suicidal or homicidal ideation, hallucinations. PHYSICAL EXAMINATION Vital Signs - 24 hr 02/27/19 02/27/19 02/27/19 17:55 18:52 19:05 Temperature 97.5 F L Pulse Rate 81 Pulse Rate [ 82 Left Radial] Respiratory 22 H 22 H Rate Blood Pressure 105/72 Blood Pressure 111/71 [Right Arm] O2 Sat by Pulse 97 100 97 Oximetry (%) GENERAL: Awake, alert, and fully oriented, HEAD: Normal with no signs of trauma. EYES: Pupils equal, round and reactive to light, extraocular movements intact, EARS, NOSE, THROAT: Moist mucous membranes. LUNGS: decreased breath sounds HEART: Regular rate and rhythm, normal S1 and S2 without murmur, rub or gallop. ABDOMEN: Soft, nontender, not distended, normoactive bowel sounds, no guarding, no rebound, no masses. . LOWER EXTREMITIES: 2+ pulses, warm, well-perfused. No calf tenderness. 2+ pitting edema SKIN: well demarcated erythema below knee, warm to tough, diffuse pitting edema ASSESSMENT/PLAN: Patient is a 88 y/o female with a history of COPD on 3L O2, HFpEF, afib on eliquis, CAD, HTN, HLD, ESRD on dialysis (T, [place], Sat), and CVA who is admitted 2/2 to anasarca and shortness of breath. #SOB with baseline hypotension - 2/2 to anasarca, HFpEF, need for dialysis - CXR: congestion - fluid restriction - monitor weight daily - hold lasix and BP medication in anticipation of dialysis, would continue after dialysis if pressures permit - patient is anuric, lasix will not help patient relieve her shortness of breath - consider VNS specific for CHF to help prevent readmission #ESRD - patient receives 3 hours of dialysis, likely needs longer duration and slower removal of fluid - may be beneficial to patient to consider peritoneal dialysis - due for dialysis tomorrow #afib - conitnue elliquis - hr controlled - would consider discontinuing cardizem in setting of CHF - can consider amiodarone for heart rate control in the setting of hypotension #COPD - patient on 2-3 L baseline - continue home medications #HLD - continue atorvastatin #GERD - continue protonix #DVT ppx - continue elliquis FEN - Low sodium diet - fluid restriction 1.5 L Dispo: monitor on tele, can likely be DC after dialysis Visit type - Emergency Visit Emergency Visit: Yes ED Registration Date: 02/27/19 Care time: The patient presented to the Emergency Department on the above date and was hospitalized for further evaluation of their emergent condition. - New Patient This patient is new to me today: Yes Date on this admission: 02/28/19 - Critical Care Critical Care patient: No ATTENDING PHYSICIAN STATEMENT I saw and evaluated the patient. I reviewed the resident's note and discussed the case with the resident. I agree with the resident's findings and plan as documented. SUBJECTIVE: OBJECTIVE: ASSESSMENT AND PLAN:
[2019-02-27] MEDS ORDERED: ATORVASTATIN CA 20 MG TABLET (FP) ONE (21:17)
[2019-02-27] MEDS ORDERED: APIXABAN 5 MG TABLET ONE (21:17)
[2019-02-27] MEDS: APIXABAN 2.5 MG TABLET PO SCH (21:26)
[2019-02-27] MEDS: ATORVASTATIN CA 20 MG TABLET (FP) PO SCH (21:26)
--- NOTE | 2019-02-27 21:35 | PN ---
Teaching Attending Note Name of Resident: Margret Christensen ATTENDING PHYSICIAN STATEMENT I saw and evaluated the patient. I reviewed the resident's note and discussed the case with the resident. I agree with the resident's findings and plan as documented. SUBJECTIVE: SUBJECTIVE: Patient is an 88 year old woman with PMH of COPD (on 3L O2), HFpEF, Afib on eliquis, CAD, HTN, Pacemaker, Aspirin allergy, HLD, ESRD on hemodialysis (T, [facility] , Sat), and CVA who presents to the ER with SOB for the second time today. Was admitted on 02/25/19 for the same complaint. Patient she has difficulty sleeping due to the shortness of breath. She has had multiple ER visits and hospitalizations recently for symptoms attributed to volume overload/CHF exacerbation. She professes compliance to prescribed PO lasix 80 mg in the off dialysis days. The patient denies fever, chills, nausea, vomiting, lightheadedness, abdominal pain, and diarrhea. Unable to make urine and has bilateral leg edema with worsening swelling. No recent travel. Denies alcohol, tobacco or illicit drug use. OBJECTIVE: Alert Vital Signs Period Temp Pulse Resp BP Sys/Perez Pulse Ox Last 24 Hr 97.5 F 81-84 18-22 105-119/71-75 97-100 HEENT: No Jaundice, eye redness or discharge, PERRLA, EOMI. Normocephalic, atraumatic. External ears are normal and hearing is grossly intact. No nasal discharge. Neck: Supple, nontender. No palpable adenopathy or thyromegaly. No JVD Chest: Good effort. Right chest hemdialysis permacath and left chest pacemaker. Clear to auscultation and percussion. Heart: Regular. No S3, rub or murmur Abdomen: Not distended, soft, nontender and no HSM. No rebound or guarding. Normal bowel sounds. Ext: Peripheral pulses intact. Bilateral leg edema. RLE erythema. Skin: Warm and dry. No petechiae, rash or ecchymosis. Neuro: Alert. Oriented x3. CN 2-12 grossly intact. Sensation grossly intact in all four extremities and DTR are symmetric. Psych: Appropriate mood and affect. Good insight. Current Medications Generic Name Dose Route Start Last Admin Trade Name Freq PRN Reason Stop Dose Admin Albuterol Sulfate 2 puff 02/27/19 20:41 Ventolin Hfa Inhaler - IH Q4H PRN SHORT OF BREATH/WHEEZING Apixaban 2.5 mg 02/27/19 22:00 02/27/19 21:26 Eliquis - PO 2.5 mg BID KESHAWN Administration Atorvastatin Calcium 20 mg 02/27/19 22:00 02/27/19 21:26 Lipitor - PO 20 mg HS KESHAWN Administration Pantoprazole Sodium 40 mg 02/28/19 10:00 Protonix - PO DAILY [facility] Tiotropium [place] 2 puff 02/28/19 10:00 Spiriva Respimat IH DAILY [facility] Home Medications Medication Instructions Recorded Fluticasone/Salmeterol [Advair Hfa 12 gm IH DAILY 05/22/17 230-21 Mcg Inhaler] Omeprazole 40 mg PO DAILY 05/22/17 Simvastatin 40 mg PO DAILY 05/22/17 Tiotropium [place] [Spiriva] 2.5 mcg IH BID 05/22/17 Diltiazem Cd [Cardizem Cd -] 120 mg PO DAILY 30 Days #30 01/26/19 cap.cd.24h Metoprolol Succinate [Toprol Xl] 50 mg PO BID 30 Days #60 tab.er.24h 01/26/19 Albuterol Sulfate Inhaler - 180 mcg IH Q4H PRN 02/14/19 [Ventolin HFA Inhaler -] Furosemide 80 mg PO ASDIR #30 tablet 02/18/19 Lactobacillus Acidophilus [Bacid -] 1 each PO DAILY 7 Days #7 capsule 02/18/19 Apixaban [Eliquis -] 2.5 mg PO BID tablet 02/25/19 ASSESSMENT AND PLAN: 1. Volume overload due to ESRD/CHF exacerbation - Inadequate dialysis fluid removal is likely precipitating CHF exacerbation. It was documented during her last admission that HYPOTESNION is limiting adequate dialysis fluid removal. CXR shows cardiomegaly with pulmonary vascular congestion. ECHO from 12/25/18 showed normal LV size, thickness and function with EF of 55-60%. EKG shows Afib with rate of 74 with ventricular paced complexes; nonspecific ST-T wave changes - no significant change compared to prior EKGs. A preciado objective in her care would be to reduce the risk of pre- and intradialytic hypotension to permit adequate fluid removal during hemodialysis. Treatment with Lasix, Cardiazem and Metoprolol may be causing predailysis and severe recurrent intradialytic hypotension - making it difficult to adequately remove fluid during hemodialysis or in fact prompting normal saline administration during dialysis to treat hypotension. Furthermore, efficacy of her dialysis treatment will be suboptimal via the right chest dialysis catheter. Consult both Cardiology and Nephrology to explore the following options - 1)Discontinue both cardiazem and metoprolol, and of course lasix, and use amiodarone for rate control - thus allowing her BP to "rise" and permit adequate fluid removal during dialysis; 2) Consider dialyzing her more frequently than 3 X a week to allow slow and increased fluid removal; and 3) Explore the option of peritoneal dialysis with the family. Will continue comprehensive care for all of patients comorbid conditions including Eliquis for Afib.. 2. Hypoalbuminemia - Possibly due to combined effects of malnutrition and inflammation associated with comorbid chronic conditions. Will ensure adequate dietary protein intake and also consult melter assistant. 3. Anemia - Likely partly due to ESRD. Will do basic anemia work up including serial stool guaiacs, reticulocyte count and iron studies. Would benefit from Procrit therapy once iron replete. 4. Hypertension - Restart suitable outpatient antihypertensive drugs when clinically appropriate. Will benefit from gradually increasing dialytic fluid removal and taper off some antihypertensive drugs. Patient counseled on the injurious effects of uncontrolled hypertension. Nonpharmacologic measures to control hypertension like weight loss, salt restriction and exercise discussed. Importance of adherence to treatment regimen and attainment of normotension emphasized. 5. DVT prophylaxis - On Eliquis for Afib. 6. Advance directives - Full code
[2019-02-27] MEDS: ACETAMINOPHEN 325 MG TABLET (FP) PO PRN (23:25)
[2019-02-28 00:07] VITALS: BMI 31.6
[2019-02-28] MEDS: ACETAMINOPHEN 325 MG TABLET (FP) PO PRN ×2 (05:54→20:00)
[2019-02-28 07:56] LABS: HEMOGLOBIN 9.1 GM/dL (10.7-15.3); MCH 26.4 pg (25.7-33.7); MCHC 30.3 g/dl (32.0-36.0); MEAN CELL VOLUME 87.3 fl (80-96); PLATELET COUNT 259 K/MM3 (134-434); RBC 3.44 M/mm3 (3.60-5.2); RDW 20.2 % (11.6-15.6); WHITE BLOOD COUNT 3.3 K/mm3 (4.0-10.0)
--- NOTE | 2019-02-28 08:01 | PN ---
Progress Note, Physician Chief Complaint: Examined while being dialzyed. In no apparent distress. History of Present Illness: Patient is a 88 y/o female with a history of COPD on 3L home O2, CHF afib on eliquis, CAD, HTN, HLD, ESRD on dialysis (T, [facility], Sat), and CVA who presents for shortness of breath after being seen and discharge home from ED last night. While in the ED patient was given 80 of lasix. Pt has had multipke readmission for same complaints. She was due to have her scheduled HD today. - Current Medication List Current Medications: Active Medications Acetaminophen (Tylenol -) 650 mg PO Q6H PRN PRN Reason: PAIN LEVEL 6-10 Last Admin: 02/28/19 05:54 Dose: 650 mg Albuterol Sulfate (Ventolin Hfa Inhaler -) 2 puff IH Q4H PRN PRN Reason: SHORT OF BREATH/WHEEZING Apixaban (Eliquis -) 2.5 mg PO BID [facility] Last Admin: 02/27/19 21:26 Dose: 2.5 mg Atorvastatin Calcium (Lipitor -) 20 mg PO HS [facility] Last Admin: 02/27/19 21:26 Dose: 20 mg Pantoprazole Sodium (Protonix -) 40 mg PO DAILY [facility] Tiotropium [place] (Spiriva Respimat) 2 puff IH DAILY [facility] - Objective Vital Signs: Vital Signs Temperature 97.6 F 02/28/19 06:00 Pulse Rate 82 02/28/19 06:00 Respiratory Rate 18 02/28/19 06:00 Blood Pressure 116/67 02/28/19 06:00 O2 Sat by Pulse Oximetry (%) 100 02/27/19 21:29 Constitutional: Yes: Well Nourished, Mild Distress Eyes: Yes: WNL, Conjunctiva Clear HENT: Yes: WNL, Atraumatic, Normocephalic Neck: Yes: WNL, Supple, Trachea Midline Cardiovascular: Yes: WNL, Regular Rate and Rhythm Respiratory: Yes: WNL, Regular, Diminished (at bases), On Nasal O2, SOB Gastrointestinal: Yes: WNL ...Rectal Exam: Yes: Deferred Genitourinary: Yes: Anuria Breast(s): Yes: WNL Musculoskeletal: Yes: WNL Extremities: Yes: Other (left forearm AV fistula) Edema: Yes Edema: LUE: 1+, RUE: 1+, LLE: 2+, RLE: 2+ Peripheral Pulses: Left Radial: 2+, Right Radial: 2+, Left Doralis Pedis: 2+, Right Dorsalis Pedis: 2+, Left Femoral: 2+, Right Femoral: 2+ Integumentary: Yes: Venous Stasis Changes, Other (well demarcated erythema below knee, warm to touch, diffuse pitting edema) Neurological: Yes: WNL ...Motor Strength: WNL - ....Imaging Chest X-ray: Image Reviewed (Increased PVC) Problem List - Problems (1) Acute respiratory failure Assessment/Plan: Pt with SOB, 2L NC, presently being dislyzed c/w supplemental O2 Bipap as needed to maintain SPO2 >88% will request TRILOGY for home use NIPPV home ventilator to be requested in AVAPS-AE mode and after further view, BiPap and been ruled ineffective due to patients acute on chronic respiratory failure as a consequence of COPD/recurrent frequent pneumonia. Patient will require non-invasive home ventilator to help decrease the work of breathing and improve pulmonary status. If left untreated may cause harm to patient and/or . -will consult with SW/CM about discharge planning c/w inhaled bronchodilators prn Code(s): J96.00 - ACUTE RESPIRATORY FAILURE, UNSP W HYPOXIA OR HYPERCAPNIA Qualifiers: Respiratory failure complication: hypoxia Qualified Code(s): J96.01 - Acute respiratory failure with hypoxia (2) CKD (chronic kidney disease) Code(s): N18.9 - CHRONIC KIDNEY DISEASE, UNSPECIFIED Qualifiers: Chronic kidney disease stage: stage 3 (moderate) Qualified Code(s): N18.3 - Chronic kidney disease, stage 3 (moderate) (3) ESRD (end stage renal disease) Assessment/Plan: HD as per schedule laxis 80mg on non HD days Code(s): N18.6 - END STAGE RENAL DISEASE (4) HTN (hypertension) Assessment/Plan: c/w metoprolol if BP is maintained after HD Code(s): I10 - ESSENTIAL (PRIMARY) HYPERTENSION (5) Hyperlipidemia Assessment/Plan: c/w atorvastatin Code(s): E78.5 - HYPERLIPIDEMIA, UNSPECIFIED Qualifiers: Hyperlipidemia type: pure hypercholesterolemia Qualified Code(s): E78.00 - Pure hypercholesterolemia, unspecified; E78.0 - Pure hypercholesterolemia (6) History of COPD Assessment/Plan: c/w spiriva NIPPV as needed Code(s): Z87.09 - PERSONAL HISTORY OF OTHER DISEASES OF THE RESPIRATORY SYSTEM (7) Prophylactic measure Assessment/Plan: FEN Fluids: no additional IVF needed, lasix prn Electrolytes: replete as indicated Nutrition:renal diet DVT prophylaxis: SCDs, oob, ambulation Dispo: continues to require inpatient care. Full code discharge planning with VNS services Code(s): Z29.9 - ENCOUNTER FOR PROPHYLACTIC MEASURES, UNSPECIFIED Visit type - Emergency Visit Emergency Visit: Yes ED Registration Date: 02/27/19 Care time: The patient presented to the Emergency Department on the above date and was hospitalized for further evaluation of their emergent condition. - New Patient This patient is new to me today: Yes Date on this admission: 02/28/19 - Critical Care Critical Care patient: No - Discharge Referral Referred to [facility] Med P.C.: No
[2019-02-28 08:20] LABS: ALBUMIN 3.8 g/dl (3.4-5.0); BILIRUBIN,TOTAL 1.1 mg/dL (0.2-1); BLOOD UREA NITROGEN 32.4 mg/dL (7-18); CALCIUM 9.4 mg/dL (8.5-10.1); CREATININE 3.6 mg/dL (0.55-1.3); MAGNESIUM 2.1 mg/dL (1.8-2.4); PHOSPHOROUS 4.5 mg/dL (2.5-4.9); POTASSIUM 4.3 mmol/L (3.5-5.1); TOT PROT 7.2 g/dl (6.4-8.2)
[2019-02-28] MEDS ORDERED: EPOETIN ALFA 10,000 UNIT/1 ML VIAL IVPUSH ONE (09:00)
[2019-02-28 11:47] LABS: ANISOCYTOSIS 1+; MACROCYTOSIS 0; PLATELET ESTIMATE NORMAL; TARGET CELLS 1+; TEAR DROP CELLS 1+
[2019-02-28] MEDS: ALBUMIN HUMAN 25% 12.5 GM/50 ML VIAL IVPB SCH ×3 (12:41→12:43)
[2019-02-28] MEDS: APIXABAN 2.5 MG TABLET PO SCH ×2 (14:09→21:36)
[2019-02-28] MEDS: TIOTROPIUM BROMIDE 2.5 MCG (SPIRIVA) RESPIMAT INHALER IH SCH (14:10)
[2019-02-28] MEDS: PANTOPRAZOLE 40 MG TABLET (FP) PO SCH (14:10)
--- NOTE | 2019-02-28 15:59 | CONSULT ---
Consult Consult Specialty:: Nephrology Reason for Consultation:: ESRD - History of Present Illness Chief Complaint: shortness of breath History of Present Illness: Pt is an 88 year old female with pmhx of esrd, dm, copd and htn who presents with increased shortness of breath. She as last dialyzed on . She was dialyzed here today and tolerated. She feels better now. 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 No: Sleep Apnea Gastrointestinal: Yes: GERD Renal/: Yes: Renal Inusuff ...: No - Alcohol/Substance Use Hx Alcohol Use: No - Smoking History Smoking history: Former smoker Have you smoked in the past 12 months: No Aproximately how many cigarettes per day: 0 If you are a former smoker, when did you quit?: 25 years ago Home Medications - Allergies Allergies/Adverse Reactions: Allergies Allergy/AdvReac Type Severity Reaction Status Date / Time aspirin Allergy Verified 02/24/19 22:50 - Home Medications Home Medications: Ambulatory Orders Fluticasone/Salmeterol [Advair Hfa 230-21 Mcg Inhaler] 12 gm IH DAILY 05/22/17 Omeprazole 40 mg PO DAILY 05/22/17 Simvastatin 40 mg PO DAILY 05/22/17 Tiotropium [place] [Spiriva] 2.5 mcg IH BID 05/22/17 Diltiazem Cd [Cardizem Cd -] 120 mg PO DAILY 30 Days #30 cap.cd.24h 01/26/19 Metoprolol Succinate [Toprol Xl] 50 mg PO BID 30 Days #60 tab.er.24h 01/26/19 Albuterol Sulfate Inhaler - [Ventolin HFA Inhaler -] 180 mcg IH Q4H PRN Furosemide 80 mg PO ASDIR #30 tablet 02/18/19 Lactobacillus Acidophilus [Bacid -] 1 each PO DAILY 7 Days #7 capsule 02/18/19 Apixaban [Eliquis -] 2.5 mg PO BID tablet 02/25/19 Family Medical History Family History: Denies Review of Systems - Review of Systems Constitutional: reports: Malaise Eyes: reports: No Symptoms Neck: reports: No Symptoms Cardiovascular: reports: Edema Respiratory: reports: SOB, SOB on Exertion Genitourinary: reports: No Symptoms Musculoskeletal: reports: No Symptoms Neurological: reports: No Symptoms Endocrine: reports: No Symptoms Hematology/Lymphatic: reports: No Symptoms Physical Exam Vital Signs: Vital Signs Temperature 98.6 F 02/28/19 10:00 Pulse Rate 68 02/28/19 12:32 Respiratory Rate 18 02/28/19 12:32 Blood Pressure 110/62 02/28/19 12:32 O2 Sat by Pulse Oximetry (%) 100 02/28/19 09:00 Constitutional: Yes: Calm Eyes: Yes: Conjunctiva Clear Cardiovascular: Yes: S1, S2 Respiratory: Yes: On Nasal O2 Gastrointestinal: Yes: Normal Bowel Sounds, Soft, Abdomen, Obese Renal/: Yes: WNL Musculoskeletal: Yes: WNL Edema: Yes Edema: LLE: 2+, RLE: 2+ Neurological: Yes: Oriented Psychiatric: Yes: Oriented Labs: CBC, BMP 02/28/19 07:40 02/28/19 05:20 Imaging - Results Chest X-ray: Report Reviewed Assessment/Plan Current Medications Generic Name Dose Route Start Last Admin Trade Name Freq PRN Reason Stop Dose Admin Acetaminophen 650 mg 02/27/19 23:01 02/28/19 05:54 Tylenol - PO 650 mg Q6H PRN Administration PAIN LEVEL 6-10 Albuterol/Ipratropium 1 amp 02/28/19 13:59 Duoneb - NEB Q6H PRN SHORTNESS OF BREATH Apixaban 2.5 mg 02/27/19 22:00 02/28/19 14:09 Eliquis - PO 2.5 mg BID KESHAWN Administration Atorvastatin Calcium 20 mg 02/27/19 22:00 02/27/19 21:26 Lipitor - PO 20 mg HS KESHAWN Administration Furosemide 80 mg 03/01/19 10:00 Lasix - PO 03/02/19 10:01 DAILY KES[facility] Pantoprazole Sodium 40 mg 02/28/19 10:00 02/28/19 14:10 Protonix - PO 40 mg DAILY KESHAWN Administration Tiotropium [place] 2 puff 02/28/19 10:00 02/28/19 14:10 Spiriva Respimat IH 2 puff DAILY KESHAWN Administration Impression 1. ESRD 2. CHF 3. COPD 4. asthma 5. dyspnea 6. HTN 7. a-fib 8. fluid overload 9. CAD 10. cellulitis Plan - HD today - pulm eval for optimization - renal diet - lasix on non hd days - discussed diet and fluid restriction with pt and her family - elevate legs
[2019-02-28 17:02] LABS: ARTERIAL BLD GAS O2 SATURATION 98.5 % (95-98); ARTERIAL BLOOD GAS BASE EXCESS 4.5 meq/l (-2-2); ARTERIAL BLOOD GAS PCO2 49.7 mmHg (35-45); ARTERIAL BLOOD GAS PO2 119 mmHg (80-100); ARTERIAL BLOOD GAS pH 7.39 (7.35-7.45)
[2019-02-28 17:03] LABS: ALLENS TEST POSITIVE
[2019-02-28] MEDS: ATORVASTATIN CA 20 MG TABLET (FP) PO SCH (21:36)
[2019-02-28] MEDS: ALBUTEROL SO4 2.5/IPRATROPIUM 0.5 INH SOL 3 ML VIAL.NEB. NEB PRN (23:25)
[2019-03-01] MEDS: ALBUTEROL SO4 2.5/IPRATROPIUM 0.5 INH SOL 3 ML VIAL.NEB. NEB PRN (06:36)
--- NOTE | 2019-03-01 08:06 | PN ---
Progress Note, Physician Chief Complaint: c/o SOB more at night. Refusing BiPap but states nebs decrease WOB History of Present Illness: Patient is a 88 y/o female with a history of COPD on 3L home O2, CHF afib on eliquis, CAD, HTN, HLD, ESRD on dialysis (T, [place], Sat), and CVA who presents for shortness of breath after being seen and discharge home from ED last night. While in the ED patient was given 80 of lasix. Pt has had multipke readmission for same complaints. She was due to have her scheduled HD today. - Current Medication List Current Medications: Active Medications Acetaminophen (Tylenol -) 650 mg PO Q6H PRN PRN Reason: PAIN LEVEL 6-10 Last Admin: 02/28/19 20:00 Dose: 650 mg Albuterol/Ipratropium (Duoneb -) 1 amp NEB Q6H PRN PRN Reason: SHORTNESS OF BREATH Last Admin: 03/01/19 06:36 Dose: 1 amp Apixaban (Eliquis -) 2.5 mg PO BID [facility] Last Admin: 02/28/19 21:36 Dose: 2.5 mg Atorvastatin Calcium (Lipitor -) 20 mg PO HS [facility] Last Admin: 02/28/19 21:36 Dose: 20 mg Furosemide (Lasix -) 80 mg PO DAILY [facility] Stop: 03/02/19 10:01 Pantoprazole Sodium (Protonix -) 40 mg PO DAILY [facility] Last Admin: 02/28/19 14:10 Dose: 40 mg Tiotropium [place] (Spiriva Respimat) 2 puff IH DAILY [facility] Last Admin: 02/28/19 14:10 Dose: 2 puff - Objective Vital Signs: Vital Signs Temperature 97.6 F 03/01/19 06:00 Pulse Rate 96 H 03/01/19 06:00 Respiratory Rate 20 03/01/19 06:00 Blood Pressure 113/67 03/01/19 06:00 O2 Sat by Pulse Oximetry (%) 99 02/28/19 20:15 Additional Findings/Remarks: Constitutional: Yes: Well Nourished, Mild Distress Eyes: Yes: WNL, Conjunctiva Clear HENT: Yes: WNL, Atraumatic, Normocephalic Neck: Yes: WNL, Supple, Trachea Midline Cardiovascular: Yes: WNL, Regular Rate and Rhythm Respiratory: Yes: WNL, Regular, Diminished (at bases), On Nasal O2, SOB Gastrointestinal: Yes: WNL ...Rectal Exam: Yes: Deferred Genitourinary: Yes: Anuria Breast(s): Yes: WNL Musculoskeletal: Yes: WNL Extremities: Yes: Other (left forearm AV fistula) Edema: Yes Edema: LUE: 1+, RUE: 1+, LLE: 2+, RLE: 2+ Peripheral Pulses: Left Radial: 2+, Right Radial: 2+, Left Doralis Pedis: 2+, Right Dorsalis Pedis: 2+, Left Femoral: 2+, Right Femoral: 2+ Integumentary: Yes: Venous Stasis Changes, Other (well demarcated erythema below knee, warm to touch, diffuse pitting edema) Neurological: Yes: WNL ...Motor Strength: WNL Labs: CBC, BMP 02/28/19 07:40 02/28/19 05:20 - ....Imaging Chest X-ray: Image Reviewed (Increased PVC) Problem List - Problems (1) Acute respiratory failure Assessment/Plan: c/w supplemental O2 pt refusing BiPap, request removed for home p c/w inhaled bronchodilators prn and will order one for home use Code(s): J96.00 - ACUTE RESPIRATORY FAILURE, UNSP W HYPOXIA OR HYPERCAPNIA Qualifiers: Respiratory failure complication: hypoxia Qualified Code(s): J96.01 - Acute respiratory failure with hypoxia (2) CKD (chronic kidney disease) Assessment/Plan: HD as per schedule lasix 80mg on non HD days Code(s): N18.9 - CHRONIC KIDNEY DISEASE, UNSPECIFIED Qualifiers: Chronic kidney disease stage: stage 3 (moderate) Qualified Code(s): N18.3 - Chronic kidney disease, stage 3 (moderate) (3) ESRD (end stage renal disease) Assessment/Plan: HD as per schedule laxix 80mg on non HD days Code(s): N18.6 - END STAGE RENAL DISEASE (4) HTN (hypertension) Assessment/Plan: c/w metoprolol with hold parameters Code(s): I10 - ESSENTIAL (PRIMARY) HYPERTENSION (5) Hyperlipidemia Assessment/Plan: c/w atorvastatin Code(s): E78.5 - HYPERLIPIDEMIA, UNSPECIFIED Qualifiers: Hyperlipidemia type: pure hypercholesterolemia Qualified Code(s): E78.00 - Pure hypercholesterolemia, unspecified; E78.0 - Pure hypercholesterolemia (6) History of COPD Assessment/Plan: c/w spiriva refusing BiPAp Code(s): Z87.09 - PERSONAL HISTORY OF OTHER DISEASES OF THE RESPIRATORY SYSTEM (7) Prophylactic measure Assessment/Plan: FEN Fluids: no additional IVF needed, lasix prn Electrolytes: replete as indicated Nutrition:renal diet DVT prophylaxis: SCDs, oob, ambulation Dispo: continues to require inpatient care. Full code discharge planning with VNS services Code(s): Z29.9 - ENCOUNTER FOR PROPHYLACTIC MEASURES, UNSPECIFIED Visit type - Emergency Visit Emergency Visit: Yes ED Registration Date: 02/27/19 Care time: The patient presented to the Emergency Department on the above date and was hospitalized for further evaluation of their emergent condition. - New Patient This patient is new to me today: No - Critical Care Critical Care patient: No - Discharge Referral Referred to [facility] Med P.C.: No
[2019-03-01 08:55] LABS: BASO % 0.3 % (0-2.0); LYMPH % 9.4 % (8-40); MCH 25.8 pg (25.7-33.7); MCHC 29.1 g/dl (32.0-36.0); MEAN CELL VOLUME 88.6 fl (80-96); MEAN PLT VOLUME 8.1 fl (7.5-11.1); MONO % 8.5 % (3.8-10.2); NEUT % 81.8 % (42.8-82.8); PLATELET COUNT 275 K/MM3 (134-434); RBC 3.49 M/mm3 (3.60-5.2); RDW 20.6 % (11.6-15.6); WHITE BLOOD COUNT 7.8 K/mm3 (4.0-10.0)
[2019-03-01 09:25] LABS: ALBUMIN 4.2 g/dl (3.4-5.0); BLOOD UREA NITROGEN 26.8 mg/dL (7-18); CALCIUM 9.8 mg/dL (8.5-10.1); MAGNESIUM 2.2 mg/dL (1.8-2.4); TOT PROT 7.2 g/dl (6.4-8.2)
[2019-03-01] MEDS: APIXABAN 2.5 MG TABLET PO SCH ×2 (09:48→21:37)
[2019-03-01] MEDS: PANTOPRAZOLE 40 MG TABLET (FP) PO SCH (09:48)
[2019-03-01] MEDS: FUROSEMIDE 40 MG TABLET (FP) PO SCH (09:49)
[2019-03-01] MEDS: TIOTROPIUM BROMIDE 2.5 MCG (SPIRIVA) RESPIMAT INHALER IH SCH (10:00)
--- NOTE | 2019-03-01 10:40 | EKG ---
Test Reason : Blood Pressure : / mmHG Vent. Rate : 088 BPM Atrial Rate : 081 BPM P-R Int : 000 ms QRS Dur : 132 ms QT Int : 424 ms P-R-T Axes : 000 029 229 degrees QTc Int : 513 ms WIDE QRS RHYTHM WITH FREQUENT ventricular-paced complexes LEFT BUNDLE BRANCH BLOCK ABNORMAL ECG WHEN COMPARED WITH ECG OF 27-FEB-2019 06:27, ELECTRONIC VENTRICULAR PACEMAKER HAS REPLACED ATRIAL FIBRILLATION Confirmed by ARTUR STATON, DILCIA ([id number]) on 03/01/2019 10:40:39 AM Referred By: Confirmed By:DILCIA SIDDIQUI MD
--- NOTE | 2019-03-01 12:42 | CON.PULM ---
Consult Consult Specialty:: PULMONARY Referred by:: JESSCIA Cedeño Reason for Consultation:: shortness of breath - History of Present Illness Chief Complaint: shortness of breath History of Present Illness: 88yo female with h/o HTN, hyperlipidemia, CAD, LV diastolic dysfunction, paroxysmal atrial fibrillation, h/o CVA, pulmonary HTN, COPD, chronic hypoxic respiratory failure on home O2, ESRD on HD, recent admission for volume overload who was admitted with worsening shortness of breath. No chest pain or discomfort. +nonproductive cough without wheezing. No fevers, chills or sweats. She is a former smoker. 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 No: Sleep Apnea Gastrointestinal: Yes: GERD Renal/: Yes: Renal Inusuff ...: No - Alcohol/Substance Use Hx Alcohol Use: No - Smoking History Smoking history: Former smoker Have you smoked in the past 12 months: No Aproximately how many cigarettes per day: 0 If you are a former smoker, when did you quit?: 25 years ago Home Medications - Allergies Allergies/Adverse Reactions: Allergies Allergy/AdvReac Type Severity Reaction Status Date / Time aspirin Allergy Verified 02/24/19 22:50 - Home Medications Home Medications: Ambulatory Orders Fluticasone/Salmeterol [Advair Hfa 230-21 Mcg Inhaler] 12 gm IH DAILY 05/22/17 Omeprazole 40 mg PO DAILY 05/22/17 Simvastatin 40 mg PO DAILY 05/22/17 Tiotropium [place] [Spiriva] 2.5 mcg IH BID 05/22/17 Diltiazem Cd [Cardizem Cd -] 120 mg PO DAILY 30 Days #30 cap.cd.24h 01/26/19 Metoprolol Succinate [Toprol Xl] 50 mg PO BID 30 Days #60 tab.er.24h 01/26/19 Furosemide 80 mg PO ASDIR #30 tablet 02/18/19 Lactobacillus Acidophilus [Bacid -] 1 each PO DAILY 7 Days #7 capsule 02/18/19 Apixaban [Eliquis -] 2.5 mg PO BID tablet 02/25/19 Acetaminophen [Tylenol .Regular Strength -] 650 mg PO Q6H PRN tablet 03/01/19 Albuterol 2.5/Ipratropium 0.5 [Duoneb -] 1 amp NEB Q6H PRN #120 amp 03/01/19 Albuterol Sulfate Inhaler - [Ventolin HFA Inhaler -] 2 puff IH Q4H PRN inhaler 03/01/19 Review of Systems - Review of Systems Constitutional: reports: Weakness. denies: Chills, Fever Eyes: denies: Recent Change in Vision HENT: denies: Nasal Congestion, Throat Pain Neck: denies: Stiffness, Tenderness Cardiovascular: reports: Edema, Shortness of Breath. denies: Chest Pain Respiratory: reports: Cough. denies: Hemoptysis, Wheezing Gastrointestinal: denies: Abdominal Pain, Nausea, Vomiting Genitourinary: denies: Dysuria, Hematuria Neurological: denies: Dizziness, Headache Endocrine: denies: Unexplained Weight Loss Physical Exam Vital Sings: Vital Signs Temperature 98.4 F 03/01/19 10:00 Pulse Rate 78 03/01/19 10:00 Respiratory Rate 20 03/01/19 10:00 Blood Pressure 109/64 03/01/19 10:00 O2 Sat by Pulse Oximetry (%) 98 03/01/19 09:00 Constitutional: Yes: Calm Eyes: Yes: Conjunctiva Clear, EOM Intact HENT: Yes: Atraumatic, Normocephalic Neck: Yes: Supple, Trachea Midline Cardiovascular: Yes: Regular Rate and Rhythm Respiratory: Yes: Diminished (decreased breath sounds at the bases) ...Clubbing: No Gastrointestinal: Yes: Normal Bowel Sounds, Soft. No: Tenderness Edema: Yes Neurological: Yes: Alert, Oriented Labs: CBC, BMP 03/01/19 08:36 03/01/19 08:36 ABG Results ABG pH 7.39 (7.35-7.45) 02/28/19 16:40 ABG pCO2 at Pt Temp 49.7 mmHg (35-45) H 02/28/19 16:40 ABG pO2 at Pt Temp 119 mmHg (80-100) H 02/28/19 16:40 ABG HCO3 29.5 mmol/L (22-27) H 02/28/19 16:40 ABG O2 Sat (Measured) 98.5 % (95-98) H 02/28/19 16:40 ABG O2 Content 12.3 % vol 02/28/19 16:40 ABG Base Excess 4.5 meq/l (-2-2) H 02/28/19 16:40 Imaging - Results Chest X-ray: Report Reviewed, Image Reviewed (increased pulmonary vascular congestion) Assessment/Plan Acute on Chronic Diastolic Heart Failure ESRD on HD Volume Overload Pulmonary HTN Paroxysmal Atrial Fibrillation CAD COPD Chronic Hypoxic Respiratory Failure HTN Hyperlipidemia h/o CVA - HD per renal with ultrafiltration - daily weights - may need a lower dry weight - O2 to keep SpO2 >90% - inhaled bronchodilators - BiPAP as needed to assist in work of breathing - rate control - continue anticoagulation Thank you for this consult Justin Chowdhury MD
--- NOTE | 2019-03-01 15:19 | PN ---
Progress Note, Physician History of Present Illness: Pt seen and examined at bedside. She is awake and alert. She still gets bouts of shortness of breath. - Current Medication List Current Medications: Active Medications Acetaminophen (Tylenol -) 650 mg PO Q6H PRN PRN Reason: PAIN LEVEL 6-10 Last Admin: 02/28/19 20:00 Dose: 650 mg Albuterol/Ipratropium (Duoneb -) 1 amp NEB Q6H PRN PRN Reason: SHORTNESS OF BREATH Last Admin: 03/01/19 06:36 Dose: 1 amp Apixaban (Eliquis -) 2.5 mg PO BID [facility] Last Admin: 03/01/19 09:48 Dose: 2.5 mg Atorvastatin Calcium (Lipitor -) 20 mg PO HS [facility] Last Admin: 02/28/19 21:36 Dose: 20 mg Furosemide (Lasix -) 80 mg PO DAILY [facility] Stop: 03/02/19 10:01 Last Admin: 03/01/19 09:49 Dose: 80 mg Pantoprazole Sodium (Protonix -) 40 mg PO DAILY [facility] Last Admin: 03/01/19 09:48 Dose: 40 mg Tiotropium [place] (Spiriva Respimat) 2 puff IH DAILY [facility] Last Admin: 02/28/19 14:10 Dose: 2 puff - Objective Vital Signs: Vital Signs Temperature 98.4 F 03/01/19 10:00 Pulse Rate 78 03/01/19 10:00 Respiratory Rate 20 03/01/19 10:00 Blood Pressure 109/64 03/01/19 10:00 O2 Sat by Pulse Oximetry (%) 98 03/01/19 09:00 Constitutional: Yes: Calm Eyes: Yes: Conjunctiva Clear HENT: Yes: Atraumatic Neck: Yes: Supple Cardiovascular: Yes: S1, S2 Respiratory: Yes: On Nasal O2, Wheezes Gastrointestinal: Yes: Soft, Abdomen, Obese Genitourinary: Yes: WNL Musculoskeletal: Yes: WNL Edema: Yes Edema: LLE: 2+, RLE: 2+ Neurological: Yes: Oriented Psychiatric: Yes: Oriented Labs: CBC, BMP 03/01/19 08:36 03/01/19 08:36 Assessment/Plan Current Medications Generic Name Dose Route Start Last Admin Trade Name Freq PRN Reason Stop Dose Admin Acetaminophen 650 mg 02/27/19 23:01 02/28/19 20:00 Tylenol - PO 650 mg Q6H PRN Administration PAIN LEVEL 6-10 Albuterol/Ipratropium 1 amp 02/28/19 13:59 03/01/19 06:36 Duoneb - NEB 1 amp Q6H PRN Administration SHORTNESS OF BREATH Apixaban 2.5 mg 02/27/19 22:00 03/01/19 09:48 Eliquis - PO 2.5 mg BID KESHAWN Administration Atorvastatin Calcium 20 mg 02/27/19 22:00 02/28/19 21:36 Lipitor - PO 20 mg HS KESHAWN Administration Furosemide 80 mg 03/01/19 10:00 03/01/19 09:49 Lasix - PO 03/02/19 10:01 80 mg DAILY KESHAWN Administration Pantoprazole Sodium 40 mg 02/28/19 10:00 03/01/19 09:48 Protonix - PO 40 mg DAILY KESHAWN Administration Tiotropium [place] 2 puff 02/28/19 10:00 02/28/19 14:10 Spiriva Respimat IH 2 puff DAILY KESHAWN Administration Impression 1. ESRD 2. CHF 3. COPD 4. asthma 5. dyspnea 6. HTN 7. a-fib 8. fluid overload 9. CAD 10. cellulitis Plan - HD with UF tomorrow - renal diet - pulm input appreciated - cont lasix - discussed diet and fluid restriction with pt and her family again today - elevate legs
[2019-03-01] MEDS: ATORVASTATIN CA 20 MG TABLET (FP) PO SCH (21:37)
[2019-03-02] MEDS ORDERED: SODIUM CHLORIDE 250 ML IV PRN ×2 (07:00→13:45)
[2019-03-02] MEDS ORDERED: EPOETIN ALFA 10,000 UNIT/1 ML VIAL IVPUSH ONE (07:00)
--- NOTE | 2019-03-02 07:31 | DS ---
Physical Exam: SUBJECTIVE: Patient seen and examined OBJECTIVE: Vital Signs Period Temp Pulse Resp BP Sys/Perez Pulse Ox Last 24 Hr 97.1 F-98.4 F 78-99 20-20 106-126/58-84 98-100 PHYSICAL EXAM Constitutional: Yes: Well Nourished, Mild Distress Eyes: Yes: WNL, Conjunctiva Clear HENT: Yes: WNL, Atraumatic, Normocephalic Neck: Yes: WNL, Supple, Trachea Midline Cardiovascular: Yes: WNL, Regular Rate and Rhythm Respiratory: Yes: WNL, Regular, Diminished (at bases), On Nasal O2, SOB Gastrointestinal: Yes: WNL ...Rectal Exam: Yes: Deferred Genitourinary: Yes: Anuria Breast(s): Yes: WNL Musculoskeletal: Yes: WNL Extremities: Yes: Other (left forearm AV fistula) Edema: Yes Edema: LUE: 1+, RUE: 1+, LLE: 2+, RLE: 2+ Peripheral Pulses: Left Radial: 2+, Right Radial: 2+, Left Doralis Pedis: 2+, Right Dorsalis Pedis: 2+, Left Femoral: 2+, Right Femoral: 2+ Integumentary: Yes: Venous Stasis Changes, Other (well demarcated erythema below knee, warm to touch, diffuse pitting edema) Neurological: Yes: WNL ...Motor Strength: WNL LABS Laboratory Results - last 24 hr 03/01/19 03/01/19 08:36 08:36 WBC 7.8 RBC 3.49 L Hgb 9.0 L Hct 31.0 L MCV 88.6 MCH 25.8 MCHC 29.1 L RDW 20.6 H Plt Count 275 MPV 8.1 Absolute Neuts (auto) 6.4 Neutrophils % 81.8 D Lymphocytes % 9.4 D Monocytes % 8.5 Eosinophils % 0.0 D Basophils % 0.3 Nucleated RBC % 0 Sodium 141 Potassium 4.0 Chloride 101 Carbon Dioxide 30 Anion Gap 10 BUN 26.8 H Creatinine 3.0 H Est GFR (CKD-EPI)AfAm 15.65 Est GFR (CKD-EPI)NonAf 13.50 Random Glucose 134 H Calcium 9.8 Phosphorus 4.0 Magnesium 2.2 Total Bilirubin 1.0 AST 21 ALT 9 L Alkaline Phosphatase 100 Total Protein 7.2 Albumin 4.2 HOSPITAL COURSE: Date of Admission:02/27/19 Date of Discharge: 03/02/19 Discharge Summary Problems reviewed: Yes Reason For Visit: CONGESTIVE HEART FAILURE Current Active Problems Prophylactic measure (Acute) CHF (congestive heart failure) (Chronic) - Instructions Referrals: Diaz Johnson MD [Primary Care Provider] - Disposition: VNS/HOME HEALTH CARE - Home Medications Comprehensive Discharge Medication List: Ambulatory Orders Fluticasone/Salmeterol [Advair Hfa 230-21 Mcg Inhaler] 12 gm IH DAILY 05/22/17 Omeprazole 40 mg PO DAILY 05/22/17 Simvastatin 40 mg PO DAILY 05/22/17 Tiotropium [place] [Spiriva] 2.5 mcg IH BID 05/22/17 Diltiazem Cd [Cardizem Cd -] 120 mg PO DAILY 30 Days #30 cap.cd.24h 01/26/19 Metoprolol Succinate [Toprol Xl] 50 mg PO BID 30 Days #60 tab.er.24h 01/26/19 Furosemide 80 mg PO ASDIR #30 tablet 02/18/19 Lactobacillus Acidophilus [Bacid -] 1 each PO DAILY 7 Days #7 capsule 02/18/19 Apixaban [Eliquis -] 2.5 mg PO BID tablet 02/25/19 Acetaminophen [Tylenol .Regular Strength -] 650 mg PO Q6H PRN tablet 03/01/19 Albuterol 2.5/Ipratropium 0.5 [Duoneb -] 1 amp NEB Q6H PRN #120 amp 03/01/19 Albuterol Sulfate Inhaler - [Ventolin HFA Inhaler -] 2 puff IH Q4H PRN inhaler 03/01/19 Nebulizer and Compressor [Comp-Air Nebulizer System] 1 each ASDIR #1 each Problem List - Problems (1) Acute respiratory failure Code(s): J96.00 - ACUTE RESPIRATORY FAILURE, UNSP W HYPOXIA OR HYPERCAPNIA Qualifiers: Respiratory failure complication: hypoxia Qualified Code(s): J96.01 - Acute respiratory failure with hypoxia (2) CKD (chronic kidney disease) Code(s): N18.9 - CHRONIC KIDNEY DISEASE, UNSPECIFIED Qualifiers: Chronic kidney disease stage: stage 3 (moderate) Qualified Code(s): N18.3 - Chronic kidney disease, stage 3 (moderate) (3) ESRD (end stage renal disease) Code(s): N18.6 - END STAGE RENAL DISEASE (4) HTN (hypertension) Code(s): I10 - ESSENTIAL (PRIMARY) HYPERTENSION (5) Hyperlipidemia Code(s): E78.5 - HYPERLIPIDEMIA, UNSPECIFIED Qualifiers: Hyperlipidemia type: pure hypercholesterolemia Qualified Code(s): E78.00 - Pure hypercholesterolemia, unspecified; E78.0 - Pure hypercholesterolemia (6) History of COPD Code(s): Z87.09 - PERSONAL HISTORY OF OTHER DISEASES OF THE RESPIRATORY SYSTEM (7) Prophylactic measure Code(s): Z29.9 - ENCOUNTER FOR PROPHYLACTIC MEASURES, UNSPECIFIED - Discharge Referral Referred to [facility] Med P.C.: No
[2019-03-02] MEDS: ALBUMIN HUMAN 25% 12.5 GM/50 ML VIAL IVPB SCH ×3 (08:30→10:07)
[2019-03-02 08:51] LABS: HEMATOCRIT 29.3 % (32.4-45.2); HEMOGLOBIN 8.8 GM/dL (10.7-15.3); MCH 26.3 pg (25.7-33.7); MEAN CELL VOLUME 87.6 fl (80-96); MEAN PLT VOLUME 7.8 fl (7.5-11.1); PLATELET COUNT 275 K/MM3 (134-434); RBC 3.35 M/mm3 (3.60-5.2); RDW 20.8 % (11.6-15.6); WHITE BLOOD COUNT 7.9 K/mm3 (4.0-10.0)
[2019-03-02 09:09] LABS: BLOOD UREA NITROGEN 38.9 mg/dL (7-18); CALCIUM 9.4 mg/dL (8.5-10.1); CREATININE 3.3 mg/dL (0.55-1.3); POTASSIUM 3.8 mmol/L (3.5-5.1)
[2019-03-02] MEDS: PANTOPRAZOLE 40 MG TABLET (FP) PO SCH (11:12)
[2019-03-02] MEDS: FUROSEMIDE 40 MG TABLET (FP) PO SCH (11:13)
[2019-03-02] MEDS: APIXABAN 2.5 MG TABLET PO SCH (11:13)
--- NOTE | 2019-03-02 12:51 | PN ---
Progress Note (short form) - Note Progress Note: Feels overall better. No CP or SOB. No acute events overnight. Intake & Output 02/27/19 02/28/19 03/01/19 03/02/19 23:59 23:59 23:59 23:59 Intake Total 160 650 990 600 Output Total 2600 3300 Balance 160 -1950 990 -2700 Weight 146 lb 6.4 oz 146 lb 12.8 oz 145 lb 2 oz Last Vital Signs Temp Pulse Resp BP Pulse Ox 97 F L 73 18 113/76 100 03/02/19 06:55 03/02/19 10:41 03/02/19 10:41 03/02/19 10:41 03/01/19 20:43 Active Medications Acetaminophen (Tylenol -) 650 mg PO Q6H PRN PRN Reason: PAIN LEVEL 6-10 Last Admin: 02/28/19 20:00 Dose: 650 mg Albuterol/Ipratropium (Duoneb -) 1 amp NEB Q6H PRN PRN Reason: SHORTNESS OF BREATH Last Admin: 03/01/19 06:36 Dose: 1 amp Apixaban (Eliquis -) 2.5 mg PO BID [facility] Last Admin: 03/02/19 11:13 Dose: 2.5 mg Atorvastatin Calcium (Lipitor -) 20 mg PO HS [facility] Last Admin: 03/01/19 21:37 Dose: 20 mg Pantoprazole Sodium (Protonix -) 40 mg PO DAILY [facility] Last Admin: 03/02/19 11:12 Dose: 40 mg Tiotropium [place] (Spiriva Respimat) 2 puff IH DAILY [facility] Last Admin: 03/01/19 10:00 Dose: Not Given Constitutional: Yes: NAD Eyes: Yes: Conjunctiva Clear, EOM Intact HENT: Yes: Atraumatic, Normocephalic Neck: Yes: Supple, Trachea Midline Cardiovascular: Yes: Regular Rate and Rhythm Respiratory: Yes: Diminished breath sounds at the bases ...Clubbing: No Gastrointestinal: Yes: Normal Bowel Sounds, Soft. No: Tenderness Edema: Yes Neurological: Yes: Alert, Oriented Labs: Laboratory Results - last 24 hr 03/02/19 03/02/19 07:00 07:00 WBC 7.9 RBC 3.35 L Hgb 8.8 L Hct 29.3 L MCV 87.6 MCH 26.3 MCHC 30.0 L RDW 20.8 H Plt Count 275 MPV 7.8 Sodium 139 Potassium 3.8 Chloride 100 Carbon Dioxide 32 Anion Gap 8 BUN 38.9 H Creatinine 3.3 H Est GFR (CKD-EPI)AfAm 13.95 Est GFR (CKD-EPI)NonAf 12.04 Random Glucose 87 Calcium 9.4 Assessment/Plan Acute on Chronic Diastolic Heart Failure ESRD on HD Volume Overload Pulmonary HTN Paroxysmal Atrial Fibrillation CAD COPD Chronic Hypoxic Respiratory Failure HTN Hyperlipidemia h/o CVA - Outpatient HD per renal - daily weights - O2 to keep SpO2 >90% - inhaled bronchodilators - continue anticoagulation - DC planning Dr Dickens
[2019-03-02] MEDS: ALBUTEROL SO4 2.5/IPRATROPIUM 0.5 INH SOL 3 ML VIAL.NEB. NEB PRN (13:18)
--- NOTE | 2019-03-02 13:45 | PN ---
Progress Note, Physician History of Present Illness: Pt seen and examined at bedside. She tolerated HD today. - Current Medication List Current Medications: Active Medications Acetaminophen (Tylenol -) 650 mg PO Q6H PRN PRN Reason: PAIN LEVEL 6-10 Last Admin: 02/28/19 20:00 Dose: 650 mg Albuterol/Ipratropium (Duoneb -) 1 amp NEB Q6H PRN PRN Reason: SHORTNESS OF BREATH Last Admin: 03/02/19 13:18 Dose: 1 amp Apixaban (Eliquis -) 2.5 mg PO BID [facility] Last Admin: 03/02/19 11:13 Dose: 2.5 mg Atorvastatin [place]cium (Lipitor -) 20 mg PO HS [facility] Last Admin: 03/01/19 21:37 Dose: 20 mg Pantoprazole Sodium (Protonix -) 40 mg PO DAILY [facility] Last Admin: 03/02/19 11:12 Dose: 40 mg Tiotropium [place] (Spiriva Respimat) 2 puff IH DAILY [facility] Last Admin: 03/01/19 10:00 Dose: Not Given - Objective Vital Signs: Vital Signs Temperature 97 F L 03/02/19 06:55 Pulse Rate 73 03/02/19 10:41 Respiratory Rate 18 03/02/19 10:41 Blood Pressure 113/76 03/02/19 10:41 O2 Sat by Pulse Oximetry (%) 95 03/02/19 08:15 Constitutional: Yes: Calm Eyes: Yes: Conjunctiva Clear HENT: Yes: Atraumatic Neck: Yes: Supple Cardiovascular: Yes: S1, S2 Respiratory: Yes: CTA Bilaterally, On Nasal O2 Gastrointestinal: Yes: Soft, Abdomen, Obese Musculoskeletal: Yes: WNL Edema: Yes Edema: LLE: 2+, RLE: 2+ Neurological: Yes: Oriented Psychiatric: Yes: Oriented Labs: CBC, BMP 03/02/19 07:00 03/02/19 07:00 Assessment/Plan Current Medications Generic Name Dose Route Start Last Admin Trade Name Freq PRN Reason Stop Dose Admin Acetaminophen 650 mg 02/27/19 23:01 02/28/19 20:00 Tylenol - PO 650 mg Q6H PRN Administration PAIN LEVEL 6-10 Albuterol/Ipratropium 1 amp 02/28/19 13:59 03/02/19 13:18 Duoneb - NEB 1 amp Q6H PRN Administration SHORTNESS OF BREATH Apixaban 2.5 mg 02/27/19 22:00 03/02/19 11:13 Eliquis - PO 2.5 mg BID KESHAWN Administration Atorvastatin Calcium 20 mg 02/27/19 22:00 03/01/19 21:37 Lipitor - PO 20 mg HS KESHAWN Administration Pantoprazole Sodium 40 mg 02/28/19 10:00 03/02/19 11:12 Protonix - PO 40 mg DAILY KESHAWN Administration Tiotropium [place] 2 puff 02/28/19 10:00 03/01/19 10:00 Spiriva Respimat IH Not Given DAILY KESHAWN Impression 1. ESRD 2. CHF 3. COPD 4. asthma 5. dyspnea 6. HTN 7. a-fib 8. fluid overload 9. CAD 10. cellulitis Plan - pt tolerated HD - arrange for HD again tomorrow to get her back on schedule - renal diet - pulm input appreciated - discussed diet and fluid restriction with pt
[2019-03-02 15:58] VITALS: BP 114/54; PULSE 110; TEMP 97.8
[2019-03-02] MEDS: TIOTROPIUM BROMIDE 2.5 MCG (SPIRIVA) RESPIMAT INHALER IH SCH (17:55)
[2019-03-03] MEDS ORDERED: ALBUMIN HUMAN 25% 12.5 GM/50 ML VIAL IVPB SCH (13:45)
[2019-03-03] MEDS ORDERED: EPOETIN ALFA 3,000 UNIT/1 ML ML IVPUSH ONE (13:45)
== END 2019-03-02 16:31 | disposition home or self-care (01) | DRG 291 ==
LOC: JER 17:50 → JERBED 18:52 → J4W 23:08
PROVIDERS: ADMIT Internal Medicine; ATTEND Nurse Practitioner Acute Care
PROC: 5A1D70Z Performance of Urinary Filtration, Intermittent, Less than 6 Hours Per Day (ICD-10-PCS; principal; 2019-02-28)
PROC: 5A1D70Z Performance of Urinary Filtration, Intermittent, Less than 6 Hours Per Day (ICD-10-PCS; 2019-03-02)
DX: I13.2 Hypertensive heart and chronic kidney disease with heart failure and with stage 5 chronic kidney disease, or end stage renal disease (principal); N18.6 End stage renal disease; I50.33 Acute on chronic diastolic (congestive) heart failure; J96.10 Chronic respiratory failure, unspecified whether with hypoxia or hypercapnia; E87.70 Fluid overload, unspecified; I25.10 Atherosclerotic heart disease of native coronary artery without angina pectoris; J44.9 Chronic obstructive pulmonary disease, unspecified; E78.5 Hyperlipidemia, unspecified; I95.9 Hypotension, unspecified; R00.0 Tachycardia, unspecified; F41.9 Anxiety disorder, unspecified; K21.9 Gastro-esophageal reflux disease without esophagitis; D63.1 Anemia in chronic kidney disease; E88.09 Other disorders of plasma-protein metabolism, not elsewhere classified; D64.9 Anemia, unspecified; E66.9 Obesity, unspecified; Z68.31 Body mass index [BMI] 31.0-31.9, adult; I27.20 Pulmonary hypertension, unspecified; I48.0 Paroxysmal atrial fibrillation; Z99.81 Dependence on supplemental oxygen; Z95.0 Presence of cardiac pacemaker; Z86.73 Personal history of transient ischemic attack (TIA), and cerebral infarction without residual deficits; Z99.2 Dependence on renal dialysis; Z87.09 Personal history of other diseases of the respiratory system
CPT/HCPCS: 36415; 36600; 71045-TC-FY; 80048; 80053; 82803; 82962; 83735; 84100; 85025; 85027; 93005; 93010; 94640; 94660; 99284-25; J0885; P9047

== ENCOUNTER 2019-03-03 05:09 | Inpatient (IN) | payer OTHER ==
--- NOTE | 2019-03-03 05:33 | PDOC ---
Attending Attestation - Resident Resident Name: ChildJose Antonio - ED Attending Attestation I have performed the following: I have examined & evaluated the patient, The case was reviewed & discussed with the resident, I agree w/resident's findings & plan - HPI HPI: 03/03/19 07:04 see resident hpi - Physicial Exam PE: 03/03/19 07:04 agree with resident exam - Medical Decision Making 03/03/19 07:11 78-year-old female with generalized malaise EKG shows atrial fibrillation Patient due for hemodialysis today CT chest ordered to further evaluate effusion versus vascular congestion versus infiltrate due to recent visit Plan for admission to medical service for further evaluation
[2019-03-03 05:34] VITALS: BMI 68.7
[2019-03-03] MEDS ORDERED: ALBUTEROL SO4 2.5/IPRATROPIUM 0.5 INH SOL 3 ML VIAL.NEB. NEB ONE ×2 (05:44→06:16)
--- NOTE | 2019-03-03 05:49 | PDOC ---
History of Present Illness - General Chief Complaint: Shortness of Breath Stated Complaint: S.O.B. Time Seen by Provider: 03/03/19 05:16 History Source: Patient, Sample Tester Used (wunderloop # [id number]), Old Records Exam Limitations: Language Barrier - History of Present Illness Initial Comments: HPI: 88 y/o female presenting to [facility] ER complaining of shortness of breath and "abdominal problems." Pt is [place]ian speaking only. Interview performed via telephone sales stock associate. Pt refused to fully participate in the interview. Initially complained of chest pain and shortness of breath but then denied chest pain. Would not elaborate on SOB, rather simply repeated that no one was helping her. Then complained of dizziness that started in her feet and moved to her stomach. Denies nausea or vomiting. Reported she ate lasagna last evening without difficulty. Next stated she did not have any problems with her legs. Pt then refused to hold the sales stock associate telephone. Attempted to continue interview with [employer]underloop phone on speaker function but pt stated the talking was making her tired and no one was helping. Pt not able to clearly communicate what changed from leaving the hospital yesterday to today. Pts daughter arrived at bedside after initial interview. Reported she gave her mother her evening medications. Her mother became more short of breath during the night. She attempted to apply the pts breathing mast multiple times without improvement in symptoms. Pt and daughter began to fight because the daughter did not want to call an ambulance. Medical Hx: - COPD on home O2 3L - A-fib on eliquis - CHF - CAD - S/p pacemaker placement - HTN - HLD - ESRD on dialysis (//Sat) - CVA - Former smoker Review of Systems: Pt would not participate in ROS despite multiple attempts to clarify complaints Physical Examination: Constitutional- Elderly adult female in no acute distress. Found semi-fowlers on hospital bed. Head- Normocephalic. No obvious external signs of trauma. Neck- Supple, trachea is midline. No JVD. Cardiovascular / Chest- Tachcyardic rate with irregularly irregular rhythm. No murmur, rubs, clicks, or gallops. Peripheral pulses- radial pulses full. 2+ pitting edema to mid thigh bilaterally. Dialysis access in right upper chest with clean and dry dressing. Pacemaker in left upper chest. Respiratory- Nasal cannula in place. Restrictive pattern on continuous capnography. Breathing mildly tachypneic. Pt speaking in 5-6 word responses before pausing for breath. Equal chest rise and fall. Auscultation exam limited as pt refused to attempt deep inspiration. No stridor, no wheezing, no rhonchi. Gastrointestinal- abdomen is soft and nondistended. No grimace, rebound, or guarding. Neuro- Alert and oriented x4. Moving all four extremities spontaneously. Skin- Warm, dry, and intact. Psych- Affect- appropriate. Mood- emotive. Speech was non-pressured. MDM: *Reviewed vital signs, nursing notes, and prior visit documentation (if available). 88 y/o female presenting with vague SOB and abdominal complaints. Unclear on change in symptoms from time of discharge from this facility yesterday. Afebrile. Vitals remarkable for borderline a-fib w/ RVR. No hypotension. Normoxic on home oxygen therapy. Physical exam as described above. Ordered Lasix , DuoNebs, and Solu-medrol for symptom relief. Discussed reason for repeat admissions with pts daughter alone. Reports her mothers kidneys started to fail earlier this month. Pt was opposed to dialysis and wanted to discuss other options, but her grandson signed the papers to begin HD. Pt is now upset with the entire family because of this decision. She becomes more upset after every HD run because she frequently has side effects. Daughter would like family meeting with team for assistance in going forward. 03 Mar 2019 07:20 AM Pt signed out to resident Dr. Jefferson after she was verbally appraised of the pts HPI, current ED course, and plan of management. Will follow up on pending chest CT and labs. Anticipate admission for shortness of breath and likely dialysis today. Jose Antonio Child M.D., PGY2 Emergency Medicine Resident Past History - Past Medical History Allergies/Adverse Reactions: Allergies Allergy/AdvReac Type Severity Reaction Status Date / Time aspirin Allergy Verified 02/24/19 22:50 Home Medications: Ambulatory Orders Fluticasone/Salmeterol [Advair Hfa 230-21 Mcg Inhaler] 12 gm IH DAILY 05/22/17 Omeprazole 40 mg PO DAILY 05/22/17 Simvastatin 40 mg PO DAILY 05/22/17 Tiotropium [place] [Spiriva] 2.5 mcg IH BID 05/22/17 Diltiazem Cd [Cardizem Cd -] 120 mg PO DAILY 30 Days #30 cap.cd.24h 01/26/19 Metoprolol Succinate [Toprol Xl] 50 mg PO BID 30 Days #60 tab.er.24h 01/26/19 Furosemide 80 mg PO ASDIR #30 tablet 02/18/19 Lactobacillus Acidophilus [Bacid -] 1 each PO DAILY 7 Days #7 capsule 02/18/19 Apixaban [Eliquis -] 2.5 mg PO BID tablet 02/25/19 Acetaminophen [Tylenol .Regular Strength -] 650 mg PO Q6H PRN tablet 03/01/19 Albuterol 2.5/Ipratropium 0.5 [Duoneb -] 1 amp NEB Q6H PRN #120 amp 03/01/19 Albuterol Sulfate Inhaler - [Ventolin HFA Inhaler -] 2 puff IH Q4H PRN inhaler 03/01/19 Nebulizer and Compressor [Comp-Air Nebulizer System] 1 each [facility] ASDIR #1 each Anemia: No Asthma: Yes Cancer: No Cardiac Disorders: Yes (AF, PPM, CAD, HI) CVA: Yes COPD: Yes CHF: Yes Dementia: No Diabetes: No GI Disorders: Yes (GASTRITIS) Disorders: No HTN: Yes Hypercholesterolemia: Yes Liver Disease: No Seizures: No Thyroid Disease: No - Surgical History Abdominal Surgery: No Appendectomy: No Cardiac Surgery: Yes (PACEMAKER) Cholecystectomy: No Lung Surgery: No Neurologic Surgery: No Orthopedic Surgery: No - Immunization History Td Vaccination: No TDAP Vaccination: No Immunization Up to Date: No - Psycho Social/Smoking Cessation Hx Smoking Status: Yes Smoking History: Former smoker Have you smoked in the past 12 months: No Number of Cigarettes Smoked Daily: 0 If you are a former smoker, when did you quit?: 25 years ago Information on smoking cessation initiated: No 'Breaking Loose' booklet given: 11/04/18 Hx Alcohol Use: No Drug/Substance Use Hx: No Substance Use Type: None Hx Substance Use Treatment: No *Physical Exam - Vital Signs Last Vital Signs Temp Pulse Resp BP Pulse Ox 97.4 F L 115 H 20 115/98 99 03/03/19 05:22 03/03/19 05:22 03/03/19 05:22 03/03/19 05:22 03/03/19 05:22 ED Treatment Course - LABORATORY CBC & Chemistry Diagram: 10/29/19 06:08 03/03/19 06:08 - RADIOLOGY Radiology Studies Ordered: Category Date Time Status CHEST CT WITHOUT CONTRAST [CT] Stat CT Scan 03/03/19 05:43 Ordered Discharge - Discharge Information Problems reviewed: Yes Clinical Impression/Diagnosis: Shortness of breath - Follow up/Referral Referrals: Diaz Johnson MD [Primary Care Provider] - - Patient Discharge Instructions - Post Discharge Activity
[2019-03-03] MEDS ORDERED: FUROSEMIDE 40 MG/4 ML INJECTABLE VIAL IVPUSH ONE (05:54)
[2019-03-03] MEDS ORDERED: methylPREDNISolone NA SUCC 125 MG/2 ML VIAL IVPUSH ONE (06:06)
[2019-03-03] MEDS ORDERED: methylPREDNISolone NA SUCC 125 MG/2 ML VIAL ONE (06:17)
[2019-03-03 06:54] LABS: BASO % 0.6 % (0-2.0); EOS % 0.8 % (0-4.5); HEMATOCRIT 27.5 % (32.4-45.2); HEMOGLOBIN 8.5 GM/dL (10.7-15.3); LYMPH % 17.9 % (8-40); MCH 26.4 pg (25.7-33.7); MCHC 30.8 g/dl (32.0-36.0); MEAN CELL VOLUME 85.6 fl (80-96); MEAN PLT VOLUME 8.2 fl (7.5-11.1); MONO % 12.9 % (3.8-10.2); NEUT % 67.8 % (42.8-82.8); PLATELET COUNT 253 K/MM3 (134-434); RBC 3.21 M/mm3 (3.60-5.2); WHITE BLOOD COUNT 6.4 K/mm3 (4.0-10.0)
[2019-03-03 07:16] LABS: MAGNESIUM 1.8 mg/dL (1.8-2.4)
[2019-03-03 07:19] LABS: BILIRUBIN,TOTAL 0.9 mg/dL (0.2-1); BLOOD UREA NITROGEN 30.8 mg/dL (7-18); CALCIUM 9.5 mg/dL (8.5-10.1); CREATININE 2.8 mg/dL (0.55-1.3); POTASSIUM 3.8 mmol/L (3.5-5.1); TOT PROT 6.8 g/dl (6.4-8.2)
--- NOTE | 2019-03-03 07:29 | PDOC ---
ED Treatment Course - LABORATORY CBC & Chemistry Diagram: 03/03/19 06:08 03/04/19 07:40 - Medications Given in the ED: ED Medications Discontinued Medications Generic Name Dose Route Start Last Admin Trade Name Freq PRN Reason Stop Dose Admin Albuterol/Ipratropium 2 amp 03/03/19 05:44 03/03/19 06:31 Duoneb - NEB 03/03/19 05:45 2 amp ONCE ONE Administration Methylprednisolone Sodium Succinate 125 mg 03/03/19 06:06 03/03/19 06:31 Solu-Medrol - IVPUSH 03/03/19 06:07 125 mg ONCE ONE Administration Medical Decision Making - Medical Decision Making Sign out received by Dr. Child, see prior note. 88 year old female with PMH HTN, HLD, COPD on 3L home O2, ESRD on HD (//, permacath), CAD, CVA, CHF, atrial fibrillation on eliquis presented to ED for shortness of breath. Pt has been admitted to [facility] multiple times in the last couple of months, most recently 02/12-03/02 for a CHF exacerbation. Daughter of patient expressed frustration with being unable to keep up with the care of her mother. Will consult with case management and social work. Initial Vital Signs Temp Pulse Resp BP Pulse Ox 97.4 F L 115 H 20 115/98 99 03/03/19 05:22 03/03/19 05:22 03/03/19 05:22 03/03/19 05:22 03/03/19 05:22 Afebrile. Tachycardic. Tachypneic. No hypotension. No hypoxia on room air. EKG performed at 0627: rate 115, irregular irregular rhythm, LBBB with discordant ST segments. -LBBB seen on prior EKG 02/27/19 Discontinued Medications Generic Name Dose Route Start Last Admin Trade Name Freq PRN Reason Stop Dose Admin Albuterol/Ipratropium 2 amp 03/03/19 05:44 03/03/19 06:31 Duoneb - NEB 03/03/19 05:45 2 amp ONCE ONE Administration Methylprednisolone Sodium Succinate 125 mg 03/03/19 06:06 03/03/19 06:31 Solu-Medrol - IVPUSH 03/03/19 06:07 125 mg ONCE ONE Administration Lasix 80 mg IV ordered, not yet given. 03/03/19 07:50 CMP Sodium 139 mmol/L (136-145) 03/03/19 06:08 Potassium 3.8 mmol/L (3.5-5.1) 03/03/19 06:08 Chloride 102 mmol/L (98-107) 03/03/19 06:08 Carbon Dioxide 30 mmol/L (21-32) 03/03/19 06:08 Anion Gap 7 MMOL/L (8-16) L 03/03/19 06:08 BUN 30.8 mg/dL (7-18) H 03/03/19 06:08 Creatinine 2.8 mg/dL (0.55-1.3) H 03/03/19 06:08 Est GFR (CKD-EPI)AfAm 17.01 03/03/19 06:08 Est GFR (CKD-EPI)NonAf 14.68 03/03/19 06:08 Random Glucose 91 mg/dL (74-106) 03/03/19 06:08 Lactic Acid 1.8 mmol/L (0.4-2.0) 03/03/19 06:08 Calcium 9.5 mg/dL (8.5-10.1) 03/03/19 06:08 Phosphorus 3.1 mg/dL (2.5-4.9) 03/03/19 06:08 Magnesium 1.8 mg/dL (1.8-2.4) 03/03/19 06:08 Total Bilirubin 0.9 mg/dL (0.2-1) 03/03/19 06:08 AST 27 U/L (15-37) 03/03/19 06:08 ALT 10 U/L (13-61) L 03/03/19 06:08 Alkaline Phosphatase 104 U/L (45-117) 03/03/19 06:08 Troponin I 0.04 ng/ml (0.00-0.05) 03/03/19 06:08 B-Natriuretic Peptide 9945.9 pg/ml (5-450) H 03/03/19 06:08 Total Protein 6.8 g/dl (6.4-8.2) 03/03/19 06:08 Albumin 4.0 g/dl (3.4-5.0) 03/03/19 06:08 Lipase 156 U/L (73-393) 03/03/19 06:08 Last BNP ~7000 Mild uremia. CKD. No hyperkalemia. 03/03/19 08:02 CBC WBC 6.4 K/mm3 (4.0-10.0) 03/03/19 06:08 RBC 3.21 M/mm3 (3.60-5.2) L 03/03/19 06:08 Hgb 8.5 GM/dL (10.7-15.3) L 03/03/19 06:08 Hct 27.5 % (32.4-45.2) L 03/03/19 06:08 MCV 85.6 fl (80-96) 03/03/19 06:08 MCH 26.4 pg (25.7-33.7) 03/03/19 06:08 MCHC 30.8 g/dl (32.0-36.0) L 03/03/19 06:08 RDW 20.0 % (11.6-15.6) H 03/03/19 06:08 Plt Count 253 K/MM3 (134-434) 03/03/19 06:08 MPV 8.2 fl (7.5-11.1) 03/03/19 06:08 Absolute Neuts (auto) 4.3 K/mm3 (1.5-8.0) 03/03/19 06:08 Neutrophils % 67.8 % (42.8-82.8) 03/03/19 06:08 Lymphocytes % 17.9 % (8-40) D 03/03/19 06:08 Monocytes % 12.9 % (3.8-10.2) H 03/03/19 06:08 Eosinophils % 0.8 % (0-4.5) D 03/03/19 06:08 Basophils % 0.6 % (0-2.0) 03/03/19 06:08 Nucleated RBC % 0 % (0-0) 03/03/19 06:08 No leukocytosis. Chronic normocytic anemia. No thrombocytopenia. 03/03/19 08:10 I spoke with Case Management about the patient, they reported they will send social work down. 03/03/19 09:33 Daughter, Marsha Owen, reported she is leaving and will return after 1300 - she can be reached at [phone]. Live in family member - Sharona Doan [phone]. 03/03/19 09:47 CT report: small to moderate right sided pleural effusion, atelectatic changes at the bases. no pneumothorax. no pneumomediastinum. emphysematous changes. cardiomegaly. pacemaker. ascites in the upper abdomen. 03/03/19 09:[address] Barrios, Nephrology, about the patient. He will consult and arrange dialysis. Discharge - Discharge Information Problems reviewed: Yes Clinical Impression/Diagnosis: Shortness of breath, COPD exacerbation, CHF exacerbation, ESRD needing dialysis Condition: Stable - Admission Yes - Follow up/Referral - Patient Discharge Instructions - Post Discharge Activity
[2019-03-03 07:49] LABS: N-TERMINAL BNP 9945.9 pg/ml (5-450); PHOSPHOROUS 3.1 mg/dL (2.5-4.9)
[2019-03-03] MEDS ORDERED: FUROSEMIDE 40 MG/4 ML INJECTABLE VIAL ONE (09:42)
[2019-03-03] MEDS ORDERED: PANTOPRAZOLE 40 MG TABLET (FP) PO SCH (10:15)
--- NOTE | 2019-03-03 10:17 | HP ---
CHIEF COMPLAINT: shortness of breath PCP: Dr. Johnson HISTORY OF PRESENT ILLNESS: 88 y/o Serbian-speaking female with a history of COPD on 3L O2, HFpEF, afib on eliquis, CAD, HTN, HLD, ESRD on dialysis (T, [place], Sat), and CVA who presents for shortness of breath. Pt was recently discharged yesterday and presents today for similar complaints. Pt has significant history of multiple recent hospital admissions for shortness of breath due to CHF exacerbation. Per ED, nephro was contacted with plan for inpatient dialysis today. ER course was notable for: (1) EKG showed afib w/ RVR, HR 115 (2) Solumedrol 125 mg, Lasix 80 IVP, Duonebs (3) Nephro consulted (Dr. Barrios) Recent Travel: Denies PAST MEDICAL HISTORY: As per HPI PAST SURGICAL HISTORY: Pacemaker placement Social History: Smoking: Former smoker Alcohol: Denies Drugs: Denies Allergies aspirin Allergy (Verified 02/24/19 22:50) HOME MEDICATIONS: Home Medications Medication Instructions Recorded Fluticasone/Salmeterol [Advair Hfa 12 gm IH DAILY 05/22/17 230-21 Mcg Inhaler] Omeprazole 40 mg PO DAILY 05/22/17 Simvastatin 40 mg PO DAILY 05/22/17 Tiotropium [place] [Spiriva] 2.5 mcg IH BID 05/22/17 Diltiazem Cd [Cardizem Cd -] 120 mg PO DAILY 30 Days #30 01/26/19 cap.cd.24h Metoprolol Succinate [Toprol Xl] 50 mg PO BID 30 Days #60 tab.er.24h 01/26/19 Furosemide 80 mg PO ASDIR #30 tablet 02/18/19 Lactobacillus Acidophilus [Bacid -] 1 each PO DAILY 7 Days #7 capsule 02/18/19 Apixaban [Eliquis -] 2.5 mg PO BID tablet 02/25/19 Acetaminophen [Tylenol .Regular 650 mg PO Q6H PRN tablet 03/01/19 Strength -] Albuterol Sulfate Inhaler - 2 puff IH Q4H PRN inhaler 03/01/19 [Ventolin HFA Inhaler -] Nebulizer and Compressor [Comp-Air 1 each MC ASDIR #1 each 03/01/19 Nebulizer System] REVIEW OF SYSTEMS CONSTITUTIONAL: Absent: fever, chills, diaphoresis, generalized weakness, malaise, loss of appetite, weight change HEENT: Absent: rhinorrhea, nasal congestion, throat pain, throat swelling, difficulty swallowing, mouth swelling, ear pain, eye pain, visual changes CARDIOVASCULAR: +b/l LE edema Absent: chest pain, syncope, palpitations, irregular heart rate, lightheadedness RESPIRATORY: +shortness of breath Absent: cough, dyspnea with exertion, orthopnea, wheezing, stridor, hemoptysis GASTROINTESTINAL: Absent: abdominal pain, abdominal distension, nausea, vomiting, diarrhea, constipation, melena, hematochezia GENITOURINARY: Absent: dysuria, frequency, urgency, hesitancy, hematuria, flank pain, genital pain MUSCULOSKELETAL: Absent: myalgia, arthralgia, joint swelling, back pain, neck pain SKIN: Absent: rash, itching, pallor HEMATOLOGIC/IMMUNOLOGIC: Absent: easy bleeding, easy bruising, lymphadenopathy, frequent infections ENDOCRINE: Absent: unexplained weight gain, unexplained weight loss, heat intolerance, cold intolerance NEUROLOGIC: Absent: headache, focal weakness or paresthesias, dizziness, unsteady gait, seizure, mental status changes, bladder or bowel incontinence PSYCHIATRIC: Absent: anxiety, depression, suicidal or homicidal ideation, hallucinations. PHYSICAL EXAMINATION Vital Signs - 24 hr 03/03/19 03/03/19 05:22 07:21 Temperature 97.4 F L Pulse Rate 115 H Respiratory 20 Rate Blood Pressure 115/98 O2 Sat by Pulse 99 95 Oximetry (%) GENERAL: Serbian-speaking female, in no acute distress. Resting comfortably. HEENT: AT/NC. EOMI. MMM NECK: Normal range of motion, supple without lymphadenopathy, JVD, or masses. LUNGS: Good inspiratory effort. B/l crackles heard throughout. Symmetric chest rise. Speaks in complete sentences. On 3L NC. HEART: Tachycardic. Irregularly irregular. Normal S1, S2. No murmurs noted. ABDOMEN: Obese, soft, NT/ND. Normoactive bowel sounds. MUSCULOSKELETAL: Normal range of motion at all joints. No bony deformities or tenderness. No CVA tenderness. EXTREMITIES: 2+ pitting edema noted b/l. Redness on b/l lower extremities. NEUROLOGICAL: Cranial nerves II-XII intact. Normal speech. SKIN: Warm, dry, normal turgor, no rashes or lesions noted. Laboratory Results - last 24 hr 03/03/19 03/03/19 03/03/19 06:08 06:08 06:08 WBC 6.4 RBC 3.21 L Hgb 8.5 L Hct 27.5 L MCV 85.6 MCH 26.4 MCHC 30.8 L RDW 20.0 H Plt Count 253 MPV 8.2 Absolute Neuts (auto) 4.3 Neutrophils % 67.8 Lymphocytes % 17.9 D Monocytes % 12.9 H Eosinophils % 0.8 D Basophils % 0.6 Nucleated RBC % 0 Sodium 139 Potassium 3.8 Chloride 102 Carbon Dioxide 30 Anion Gap 7 L BUN 30.8 H Creatinine 2.8 H Est GFR (CKD-EPI)AfAm 17.01 Est GFR (CKD-EPI)NonAf 14.68 Random Glucose 91 Lactic Acid 1.8 Calcium 9.5 Phosphorus 3.1 Magnesium Total Bilirubin 0.9 AST 27 ALT 10 L Alkaline Phosphatase 104 Troponin I 0.04 B-Natriuretic Peptide 9945.9 H Total Protein 6.8 Albumin 4.0 Lipase 03/03/19 06:08 WBC RBC Hgb Hct MCV MCH MCHC RDW Plt Count MPV Absolute Neuts (auto) Neutrophils % Lymphocytes % Monocytes % Eosinophils % Basophils % Nucleated RBC % Sodium Potassium Chloride Carbon Dioxide Anion Gap BUN Creatinine Est GFR (CKD-EPI)AfAm Est GFR (CKD-EPI)NonAf Random Glucose Lactic Acid Calcium Phosphorus Magnesium 1.8 Total Bilirubin AST ALT Alkaline Phosphatase Troponin I B-Natriuretic Peptide Total Protein Albumin Lipase 156 ASSESSMENT/PLAN: 88 y/o female with a history of COPD on 3L O2, HFpEF, afib on eliquis, CAD, HTN , HLD, ESRD on dialysis (T, [facility], Sat), and CVA who is admitted for shortness of breath likely 2/2 fluid overload. #Fluid Overload 2/2 ESRD; There may also be component of anxiety causing pt's sob prompting daily visits to the ED. - Nephro consulted; scheduled for inpatient HD today - fluid restriction - Cont Lasix on non-HD days - Pt may benefit from anxiolytic given pt's symptoms and thorough discussions with family; discuss best treatment with PCP #ESRD; on HD T/Th/Sat - Inpatient HD today - Nephro consulted #Afib; Cont home med: Eliquis 2.5 BID, Toprol XL 50 BID, Cardizem 120 QD #COPD; Stable, not in exacerbation. Cont home meds: Spiriva, Advair. On 3L satting at 100%. #HLD; Cont home med: Atorvastatin 10 QD #GERD; Continue home med: Protonix 40 QD #Prophylaxis DVT: Cont home Eliquis GI: Cont home Protonix FEN -no IVf -recheck lytes in AM -Renal diet Dispo -admit to med-surg Visit type - Emergency Visit Emergency Visit: Yes ED Registration Date: 03/03/19 Care time: The patient presented to the Emergency Department on the above date and was hospitalized for further evaluation of their emergent condition. - New Patient This patient is new to me today: Yes Date on this admission: 03/03/19 - Critical Care Critical Care patient: No ATTENDING PHYSICIAN STATEMENT I saw and evaluated the patient. I reviewed the resident's note and discussed the case with the resident. I agree with the resident's findings and plan as documented. SUBJECTIVE: OBJECTIVE: ASSESSMENT AND PLAN:
[2019-03-03] MEDS ORDERED: METOPROLOL TARTRATE 5 MG/5 ML VIAL IVPUSH ONE (10:20)
[2019-03-03] MEDS: ATORVASTATIN CA 10 MG TABLET (FP) PO SCH (10:30)
[2019-03-03] MEDS ORDERED: PANTOPRAZOLE 40 MG TABLET (FP) ONE (10:45)
[2019-03-03] MEDS ORDERED: dilTIAZem HCL 60 MG TABLET (FP) ONE (10:46)
[2019-03-03] MEDS ORDERED: METOPROLOL TARTRATE 5 MG/5 ML VIAL ONE (10:46)
[2019-03-03] MEDS ORDERED: ATORVASTATIN CA 10 MG TABLET (FP) ONE (10:46)
[2019-03-03] MEDS ORDERED: APIXABAN 5 MG TABLET ONE (10:47)
[2019-03-03] MEDS ORDERED: EPOETIN ALFA 20,000 UNIT/1 ML VIAL IVPUSH ONE (11:00)
--- NOTE | 2019-03-03 11:04 | EKG ---
Test Reason : Blood Pressure : / mmHG Vent. Rate : 115 BPM Atrial Rate : 117 BPM P-R Int : 000 ms QRS Dur : 134 ms QT Int : 312 ms P-R-T Axes : 000 023 209 degrees QTc Int : 431 ms ATRIAL FIBRILLATION WITH RAPID VENTRICULAR RESPONSE LEFT BUNDLE BRANCH BLOCK ABNORMAL ECG WHEN COMPARED WITH ECG OF 27-FEB-2019 18:13, ATRIAL FIBRILLATION HAS REPLACED ELECTRONIC VENTRICULAR PACEMAKER Confirmed by Melvin Lancaster MD ([id number]) on 03/03/2019 11:04:18 AM Referred By: Confirmed By:Melvin Lancaster MD
[2019-03-03] MEDS: APIXABAN 2.5 MG TABLET PO SCH ×3 (11:09→21:13)
[2019-03-03 11:21] LABS: URINE APPEARANCE CLEAR; URINE BILIRUBIN NEGATIVE (NEGATIVE); URINE COLOR YELLOW; URINE GLUCOSE (UA) NEGATIVE (NEGATIVE); URINE KETONE NEGATIVE (NEGATIVE); URINE LEUK ESTERASE TRACE (NEGATIVE); URINE NITRITE NEGATIVE (NEGATIVE); URINE PROTEIN 2+ (NEGATIVE); URINE UROBILINOGEN 0.2 mg/dL (0.2-1.0)
[2019-03-03 13:49] LABS: URINE RBC 4.4 /hpf (0-4); URINE WBC 0.1 /hpf (0-5)
[2019-03-03 13:50] LABS: EPI CELLS 0.1 /HPF (0-5/HPF); HYALINE CASTS 0 /lpf (0-8); URINE BACTERIA 0 /hpf (NEGATIVE)
[2019-03-03] MEDS: ALBUMIN HUMAN 25% 12.5 GM/50 ML VIAL IVPB SCH ×3 (14:00→16:25)
[2019-03-03 14:26] LABS: YEAST NONE SEEN (NEGATIVE)
--- NOTE | 2019-03-03 16:18 | PN ---
Teaching Attending Note Name of Resident: Claudine Mcguire ATTENDING PHYSICIAN STATEMENT I saw and evaluated the patient. I reviewed the resident's note and discussed the case with the resident. I agree with the resident's findings and plan as documented. SUBJECTIVE: Complains of intermittent dyspnea. No fever/chills. OBJECTIVE: Afebrile, Hemodynamically Stable. SpO2 99% on 3L via NC. Last Vital Signs Temp Pulse Resp BP Pulse Ox 97.7 F 54 L 18 139/72 100 03/03/19 13:25 03/03/19 16:00 03/03/19 16:00 03/03/19 16:00 03/03/19 12:40 HEENT - Atramatic, normocephalic. Heart - S1, S2, RRR Lungs - clear to auscultation abdomen - soft, mild generalized tenderness. Bowel Sounds normal. Extremities - Edema ++ Neuro - AAO x 3. Tone/Power normal all extremities. Laboratory Results - last 24 hr 03/03/19 03/03/19 03/03/19 06:08 06:08 06:08 WBC 6.4 RBC 3.21 L Hgb 8.5 L Hct 27.5 L MCV 85.6 MCH 26.4 MCHC 30.8 L RDW 20.0 H Plt Count 253 MPV 8.2 Absolute Neuts (auto) 4.3 Neutrophils % 67.8 Lymphocytes % 17.9 D Monocytes % 12.9 H Eosinophils % 0.8 D Basophils % 0.6 Nucleated RBC % 0 Sodium 139 Potassium 3.8 Chloride 102 Carbon Dioxide 30 Anion Gap 7 L BUN 30.8 H Creatinine 2.8 H Est GFR (CKD-EPI)AfAm 17.01 Est GFR (CKD-EPI)NonAf 14.68 Random Glucose 91 Lactic Acid 1.8 Calcium 9.5 Phosphorus 3.1 Magnesium Total Bilirubin 0.9 AST 27 ALT 10 L Alkaline Phosphatase 104 Troponin I 0.04 B-Natriuretic Peptide 9945.9 H Total Protein 6.8 Albumin 4.0 Lipase Urine Color Urine Appearance Urine pH Ur Specific [place] Urine Protein Urine Glucose (UA) Urine Ketones Urine Blood Urine Nitrite Urine Bilirubin Urine Urobilinogen Ur Leukocyte Esterase Urine WBC (Auto) Urine RBC (Auto) Urine Casts (Auto) U Pathogenic Cast Auto U Epithel Cells (Auto) Urine Bacteria (Auto) Urine Yeast (Auto) 03/03/19 03/03/19 06:08 11:05 WBC RBC Hgb Hct MCV MCH MCHC RDW Plt Count MPV Absolute Neuts (auto) Neutrophils % Lymphocytes % Monocytes % Eosinophils % Basophils % Nucleated RBC % Sodium Potassium Chloride Carbon Dioxide Anion Gap BUN Creatinine Est GFR (CKD-EPI)AfAm Est GFR (CKD-EPI)NonAf Random Glucose Lactic Acid Calcium Phosphorus Magnesium 1.8 Total Bilirubin AST ALT Alkaline Phosphatase Troponin I B-Natriuretic Peptide Total Protein Albumin Lipase 156 Urine Color Yellow Urine Appearance Clear Urine pH 5.0 Ur Specific [place] 1.014 Urine Protein 2+ H Urine Glucose (UA) Negative Urine Ketones Negative Urine Blood Negative Urine Nitrite Negative Urine Bilirubin Negative Urine Urobilinogen 0.2 Ur Leukocyte Esterase Trace Urine WBC (Auto) 0.1 Urine RBC (Auto) 4.4 Urine Casts (Auto) 0 U Pathogenic Cast Auto Few granular casts U Epithel Cells (Auto) 0.1 Urine Bacteria (Auto) 0 Urine Yeast (Auto) None seen Current Medications Generic Name Dose Route Start Last Admin Trade Name Freq PRN Reason Stop Dose Admin Acetaminophen 650 mg 03/03/19 10:14 Tylenol - PO Q6H PRN PAIN LEVEL 6-10 Albuterol Sulfate 2 puff 03/03/19 10:14 Ventolin Hfa Inhaler - IH Q4H PRN SHORT OF BREATH/WHEEZING Apixaban 2.5 mg 03/03/19 10:15 03/03/19 11:09 Eliquis - PO Not Given BID [facility] Atorvastatin Calcium 10 mg 03/03/19 10:15 03/03/19 10:30 Lipitor - PO 10 mg DAILY [facility] Administration Diltiazem HCl 120 mg 03/03/19 10:15 Cardizem Cd - PO DAILY [facility] Lactobacillus Acidophilus 1 tab 03/03/19 10:15 Bacid - PO DAILY [facility] Metoprolol Succinate 50 mg 03/03/19 10:15 03/03/19 11:09 Toprol Xl - PO Not Given BID [facility] Pantoprazole Sodium 40 mg 03/03/19 10:15 Protonix - PO DAILY [facility] Tiotropium [place] 2 puff 03/04/19 10:00 Spiriva Respimat IH DAILY [facility] Home Medications Medication Instructions Recorded Fluticasone/Salmeterol [Advair Hfa 12 gm IH DAILY 05/22/17 230-21 Mcg Inhaler] Omeprazole 40 mg PO DAILY 05/22/17 Simvastatin 40 mg PO DAILY 05/22/17 Tiotropium [place] [Spiriva] 2.5 mcg IH BID 05/22/17 Diltiazem Cd [Cardizem Cd -] 120 mg PO DAILY 30 Days #30 01/26/19 cap.cd.24h Metoprolol Succinate [Toprol Xl] 50 mg PO BID 30 Days #60 tab.er.24h 01/26/19 Furosemide 80 mg PO ASDIR #30 tablet 02/18/19 Lactobacillus Acidophilus [Bacid -] 1 each PO DAILY 7 Days #7 capsule 02/18/19 Apixaban [Eliquis -] 2.5 mg PO BID tablet 02/25/19 Acetaminophen [Tylenol .Regular 650 mg PO Q6H PRN tablet 03/01/19 Strength -] Albuterol Sulfate Inhaler - 2 puff IH Q4H PRN inhaler 03/01/19 [Ventolin HFA Inhaler -] Nebulizer and Compressor [Comp-Air 1 each MC ASDIR #1 each 03/01/19 Nebulizer System] Albuterol 2.5/Ipratropium 0.5 1 puff IH Q6H 03/03/19 [Duoneb -] traZODone HCL [Trazodone HCl] 50 mg PO HS 03/03/19 ASSESSMENT AND PLAN: 88 year old female with history of chronic diastolic CHF, ESRD on HD (Saturday, , Saturday via right tunneled catheter), paroxysmal atrial fibrillation (on Eliquis), Hx CVA, Chronic Respiratory Failure sec to COPD, CAD, hypertension , hyperlpidemia, presents with recurrent complaints of shortness of breath, after being discharged yesterday. this is her 4th presentation to ED and 3rd admission in [address] Chest - COPD changes with small bilateral pleural effusions R>L 1. Fluid Overload secondary to ESRD Received extra HD session yesterday - Nephrology will dialyse again today Continue Lasix on non-HD days. 2. SOB likely secondary to Anxiety rather than fluid overload. Patient admits to anxiety, especially at night prompting her re-presentation to ED almost daily. 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 3. HTN - continue Metoprolol, Diltiazem 4. Atrial Fibrillation - continue BB, CCB, Eliquis. 5. HLD - Continue Simvastatin 6. GERD - Continue PPI 7. Chronic Respiratory Failure sec to COPD - Stable, no evidence of acute exacerbation. Continue Advair, Spiriva, albuterol PRN 8. Anemia, multifactorial - Iron Deficiency and sec to ESRD - will discuss with Nephrology re: need for EPO +/- Venofer. DVT Px - on Eliquis
--- NOTE | 2019-03-03 17:06 | CONSULT ---
Consult Consult Specialty:: Nephrology Reason for Consultation:: ESRD - History of Present Illness Chief Complaint: shortness of breath History of Present Illness: Pt is an 88 year old female with esrd who presents with shortness of breath. She was discharged yesterday. She has had multiple admissions. She is tolerating HD. 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 No: Sleep Apnea Gastrointestinal: Yes: GERD Renal/: Yes: Renal Inusuff - Alcohol/Substance Use Hx Alcohol Use: No - Smoking History Smoking history: Former smoker Have you smoked in the past 12 months: No Aproximately how many cigarettes per day: 0 If you are a former smoker, when did you quit?: 25 years ago Home Medications - Allergies Allergies/Adverse Reactions: Allergies Allergy/AdvReac Type Severity Reaction Status Date / Time aspirin Allergy Verified 02/24/19 22:50 - Home Medications Home Medications: Ambulatory Orders RX: Fluticasone/Salmeterol [Advair Hfa 230-21 Mcg Inhaler] 12 gm IH DAILY RX: Omeprazole 40 mg PO DAILY 05/22/17 RX: Simvastatin 40 mg PO DAILY 05/22/17 RX: Tiotropium [place] [Spiriva] 2.5 mcg IH BID 05/22/17 RX: Diltiazem Cd [Cardizem Cd -] 120 mg PO DAILY 30 Days #30 cap.cd.24h RX: Metoprolol Succinate [Toprol Xl] 50 mg PO BID 30 Days #60 tab.er.24h RX: Furosemide 80 mg PO ASDIR #30 tablet 02/18/19 RX: Lactobacillus Acidophilus [Bacid -] 1 each PO DAILY 7 Days #7 capsule RX: Apixaban [Eliquis -] 2.5 mg PO BID tablet 02/25/19 RX: Acetaminophen [Tylenol .Regular Strength -] 650 mg PO Q6H PRN tablet RX: Albuterol Sulfate Inhaler - [Ventolin HFA Inhaler -] 2 puff IH Q4H PRN inhaler 03/01/19 RX: Nebulizer and Compressor [Comp-Air Nebulizer System] 1 each MC ASDIR #1 each 03/01/19 Albuterol 2.5/Ipratropium 0.5 [Duoneb -] 1 puff IH Q6H 03/03/19 RX: traZODone HCL [Trazodone HCl] 50 mg PO HS 03/03/19 Family Medical History Family History: Denies Review of Systems - Review of Systems Constitutional: reports: Malaise Physical Exam Vital Signs: Vital Signs Temperature 97.7 F 03/03/19 13:25 Pulse Rate 84 03/03/19 16:52 Respiratory Rate 18 03/03/19 16:52 Blood Pressure 121/61 03/03/19 16:52 O2 Sat by Pulse Oximetry (%) 100 03/03/19 12:40 Constitutional: Yes: Calm Eyes: Yes: Conjunctiva Clear HENT: Yes: Atraumatic Cardiovascular: Yes: S1, S2 Respiratory: Yes: On Nasal O2 Gastrointestinal: Yes: Soft Musculoskeletal: Yes: WNL Edema: Yes Edema: LLE: 2+, RLE: 2+ Neurological: Yes: Oriented Psychiatric: Yes: Oriented Labs: CBC, BMP 03/03/19 06:08 03/03/19 06:08 Laboratory Tests 03/03/19 03/03/19 03/03/19 06:08 06:08 11:05 WBC 6.4 Hgb 8.5 L Plt Count 253 Sodium 139 Potassium 3.8 Creatinine 2.8 H Urine Protein 2+ H Imaging - Results Chest X-ray: Report Reviewed Assessment/Plan Current Medications Generic Name Dose Route Start Last Admin Trade Name Freq PRN Reason Stop Dose Admin Acetaminophen 650 mg 03/03/19 10:14 Tylenol - PO Q6H PRN PAIN LEVEL 6-10 Albuterol Sulfate 2 puff 03/03/19 10:14 Ventolin Hfa Inhaler - IH Q4H PRN SHORT OF BREATH/WHEEZING Apixaban 2.5 mg 03/03/19 10:15 03/03/19 11:09 Eliquis - PO Not Given BID [facility] Atorvastatin Calcium 10 mg 03/03/19 10:15 03/03/19 10:30 Lipitor - PO 10 mg DAILY [facility] Administration Diltiazem HCl 120 mg 03/03/19 10:15 Cardizem Cd - PO DAILY [facility] Furosemide 80 mg 03/04/19 10:00 Lasix - PO [id number] [facility] Lactobacillus Acidophilus 1 tab 03/03/19 10:15 Bacid - PO DAILY [facility] Metoprolol Succinate 50 mg 03/03/19 10:15 03/03/19 11:09 Toprol Xl - PO Not Given BID [facility] Pantoprazole Sodium 40 mg 03/03/19 10:15 Protonix - PO DAILY [facility] Tiotropium [place] 2 puff 03/04/19 10:00 Spiriva Respimat IH DAILY [facility] Impression 1. ESRD 2. CHF 3. COPD 4. asthma 5. dyspnea 6. HTN 7. a-fib 8. fluid overload 9. CAD 10. cellulitis Plan - HD today - next HD - renal diet - consider placement in rehab that has on-site HD
[2019-03-03] MEDS: ACETAMINOPHEN 325 MG TABLET (FP) PO PRN (18:23)
[2019-03-03] MEDS ORDERED: ZOLPIDEM TARTRATE 5 MG TABLET PO ONE (20:55)
[2019-03-03] MEDS ORDERED: MELATONIN 5 MG TABLETS PO ONE (20:55)
[2019-03-04] MEDS: ALBUTEROL SO4 8 GM HFA INHALER IH PRN ×2 (04:32→10:44)
[2019-03-04 09:19] LABS: BLOOD UREA NITROGEN 29.2 mg/dL (7-18); CALCIUM 9.6 mg/dL (8.5-10.1); CREATININE 2.4 mg/dL (0.55-1.3); POTASSIUM 4.2 mmol/L (3.5-5.1)
[2019-03-04] MEDS ORDERED: TIOTROPIUM BROMIDE 2.5 MCG (SPIRIVA) RESPIMAT INHALER IH SCH (10:00)
[2019-03-04] MEDS ORDERED: FUROSEMIDE 40 MG TABLET (FP) PO SCH (10:00)
[2019-03-04] MEDS: LACTOBACILLUS ACIDOPHILUS 1 TABLET PO SCH (10:31)
[2019-03-04] MEDS: APIXABAN 2.5 MG TABLET PO SCH (10:32)
[2019-03-04] MEDS: ACETAMINOPHEN 325 MG TABLET (FP) PO PRN (10:42)
[2019-03-04] MEDS ORDERED: SODIUM CHLORIDE 250 ML IV PRN (12:05)
--- NOTE | 2019-03-04 12:05 | PN ---
Progress Note, Physician History of Present Illness: Pt seen and examined at bedside. She is out of bed to chair. She has chronic shortness of breath. - Current Medication List Current Medications: Active Medications Acetaminophen (Tylenol -) 650 mg PO Q6H PRN PRN Reason: PAIN LEVEL 6-10 Last Admin: 03/04/19 10:42 Dose: 650 mg Albuterol Sulfate (Ventolin Hfa Inhaler -) 2 puff IH Q4H PRN PRN Reason: SHORT OF BREATH/WHEEZING Last Admin: 03/04/19 10:44 Dose: 2 puff Apixaban (Eliquis -) 2.5 mg PO BID [facility] Last Admin: 03/04/19 10:32 Dose: 2.5 mg Atorvastatin Calcium (Lipitor -) 10 mg PO DAILY [facility] Last Admin: 03/03/19 10:30 Dose: 10 mg Diltiazem HCl (Cardizem Cd -) 120 mg PO DAILY [facility] Last Admin: 03/04/19 11:09 Dose: 120 mg Furosemide (Lasix -) 80 mg PO SuMoWeFr@1000 [facility] Last Admin: 03/04/19 11:07 Dose: 80 mg Lactobacillus Acidophilus (Bacid -) 1 tab PO DAILY [facility] Last Admin: 03/04/19 10:31 Dose: 1 tab Metoprolol Succinate (Toprol Xl -) 50 mg PO BID [facility] Last Admin: 03/04/19 11:09 Dose: 50 mg Pantoprazole Sodium (Protonix -) 40 mg PO DAILY [facility] Last Admin: 03/04/19 10:31 Dose: 40 mg Tiotropium [place] (Spiriva Respimat) 2 puff IH DAILY [facility] - Objective Vital Signs: Vital Signs Temperature 97.7 F 03/04/19 05:33 Pulse Rate 84 03/04/19 05:33 Respiratory Rate 18 03/04/19 05:33 Blood Pressure 99/49 L 03/04/19 05:33 O2 Sat by Pulse Oximetry (%) 98 03/03/19 21:00 Constitutional: Yes: Calm Eyes: Yes: Conjunctiva Clear HENT: Yes: Atraumatic Cardiovascular: Yes: S1, S2 Respiratory: Yes: On Nasal O2, Wheezes Gastrointestinal: Yes: Soft, Abdomen, Obese Genitourinary: Yes: WNL Edema: Yes Edema: LLE: 2+, RLE: 2+ Neurological: Yes: Oriented Psychiatric: Yes: Oriented Labs: CBC, BMP 03/03/19 06:08 03/04/19 07:40 Assessment/Plan Current Medications Generic Name Dose Route Start Last Admin Trade Name Gee PRN Reason Stop Dose Admin Acetaminophen 650 mg 03/03/19 10:14 03/04/19 10:42 Tylenol - PO 650 mg Q6H PRN Administration PAIN LEVEL 6-10 Albuterol Sulfate 2 puff 03/03/19 10:14 03/04/19 10:44 Ventolin Hfa Inhaler - IH 2 puff Q4H PRN Administration SHORT OF BREATH/WHEEZING Apixaban 2.5 mg 03/03/19 10:15 03/04/19 10:32 Eliquis - PO 2.5 mg BID [facility] Administration Atorvastatin Calcium 10 mg 03/03/19 10:15 03/03/19 10:30 Lipitor - PO 10 mg DAILY [facility] Administration Diltiazem HCl 120 mg 03/03/19 10:15 03/04/19 11:09 Cardizem Cd - PO 120 mg DAILY [facility] Administration Furosemide 80 mg 03/04/19 10:00 03/04/19 11:07 Lasix - PO 80 mg SuMoWeFr@1000 [facility] Administration Lactobacillus Acidophilus 1 tab 03/03/19 10:15 03/04/19 10:31 Bacid - PO 1 tab DAILY [facility] Administration Metoprolol Succinate 50 mg 03/03/19 10:15 03/04/19 11:09 Toprol Xl - PO 50 mg BID [facility] Administration Pantoprazole Sodium 40 mg 03/03/19 10:15 03/04/19 10:31 Protonix - PO 40 mg DAILY [facility] Administration Tiotropium [place] 2 puff 03/04/19 10:00 Spiriva Respimat IH DAILY [facility] Impression 1. ESRD 2. CHF 3. COPD 4. asthma 5. dyspnea 6. HTN 7. a-fib 8. fluid overload 9. CAD 10. cellulitis Plan - will arrange for HD tomorrow - cont renal diet - cnt fluid restriction - consider placement in rehab that has on-site HD
--- NOTE | 2019-03-04 13:28 | PN ---
Teaching Attending Note Name of Resident: Jerardo Mar ATTENDING PHYSICIAN STATEMENT I saw and evaluated the patient. I reviewed the resident's note and discussed the case with the resident. I agree with the resident's findings and plan as documented. SUBJECTIVE: Dyspnea resolved. No fever/chills. OBJECTIVE: Afebrile, Hemodynamically Stable. SpO2 99% on 3L via NC. Comfortable Last Vital Signs Temp Pulse Resp BP Pulse Ox 97.7 F 84 18 99/49 L 98 03/04/19 05:33 03/04/19 05:33 03/04/19 05:33 03/04/19 05:33 03/03/19 21:00 Heart - S1, S2, RRR Lungs - clear to auscultation, good air entry abdomen - soft, mild generalized tenderness. Bowel Sounds normal. Extremities - Edema ++ Neuro - AAO x 3. Tone/Power normal all extremities. Laboratory Results - last 24 hr 03/03/19 03/04/19 11:05 07:40 Sodium 137 Potassium 4.2 Chloride 100 Carbon Dioxide 29 Anion Gap 9 BUN 29.2 H Creatinine 2.4 H Est GFR (CKD-EPI)AfAm 20.50 Est GFR (CKD-EPI)NonAf 17.69 Random Glucose 102 Calcium 9.6 Urine WBC (Auto) 0.1 Urine RBC (Auto) 4.4 Urine Casts (Auto) 0 U Pathogenic Cast Auto Few granular casts U Epithel Cells (Auto) 0.1 Urine Bacteria (Auto) 0 Urine Yeast (Auto) None seen Current Medications Generic Name Dose Route Start Last Admin Trade Name Freq PRN Reason Stop Dose Admin Acetaminophen 650 mg 03/03/19 10:14 03/04/19 10:42 Tylenol - PO 650 mg Q6H PRN Administration PAIN LEVEL 6-10 Albumin Human 12.5 gm 03/05/19 12:15 Albumin Human 25% IVPB Q30M [facility] Albuterol Sulfate 2 puff 03/03/19 10:14 03/04/19 10:44 Ventolin Hfa Inhaler - IH 2 puff Q4H PRN Administration SHORT OF BREATH/WHEEZING Apixaban 2.5 mg 03/03/19 10:15 03/04/19 10:32 Eliquis - PO 2.5 mg BID [facility] Administration Atorvastatin Calcium 10 mg 03/03/19 10:15 03/03/19 10:30 Lipitor - PO 10 mg DAILY [facility] Administration Diltiazem HCl 120 mg 03/03/19 10:15 03/04/19 11:09 Cardizem Cd - PO 120 mg DAILY [facility] Administration Epoetin Abdirashid 12,000 unit 03/05/19 12:05 Epogen - IVPUSH 03/05/19 12:06 ONCE ONE Furosemide 80 mg 03/04/19 10:00 03/04/19 11:07 Lasix - PO 80 mg SuMoWeFr@1000 [facility] Administration Sodium Chloride 250 mls @ 3,000 mls/hr 03/04/19 12:05 Normal Saline - IV 03/05/19 12:06 PRN PRN Hypotension during Dialysis Lactobacillus Acidophilus 1 tab 03/03/19 10:15 03/04/19 10:31 Bacid - PO 1 tab DAILY [facility] Administration Metoprolol Succinate 50 mg 03/03/19 10:15 03/04/19 11:09 Toprol Xl - PO 50 mg BID [facility] Administration Pantoprazole Sodium 40 mg 03/03/19 10:15 03/04/19 10:31 Protonix - PO 40 mg DAILY [facility] Administration Tiotropium [place] 2 puff 03/04/19 10:00 Spiriva Respimat IH DAILY [facility] Home Medications Medication Instructions Recorded Fluticasone/Salmeterol [Advair Hfa 12 gm IH DAILY 05/22/17 230-21 Mcg Inhaler] Omeprazole 40 mg PO DAILY 05/22/17 Simvastatin 40 mg PO DAILY 05/22/17 Tiotropium [place] [Spiriva] 2.5 mcg IH BID 05/22/17 Diltiazem Cd [Cardizem Cd -] 120 mg PO DAILY 30 Days #30 01/26/19 cap.cd.24h Metoprolol Succinate [Toprol Xl] 50 mg PO BID 30 Days #60 tab.er.24h 01/26/19 Furosemide 80 mg PO ASDIR #30 tablet 02/18/19 Lactobacillus Acidophilus [Bacid -] 1 each PO DAILY 7 Days #7 capsule 02/18/19 Apixaban [Eliquis -] 2.5 mg PO BID tablet 02/25/19 Acetaminophen [Tylenol .Regular 650 mg PO Q6H PRN tablet 03/01/19 Strength -] Albuterol Sulfate Inhaler - 2 puff IH Q4H PRN inhaler 03/01/19 [Ventolin HFA Inhaler -] Nebulizer and Compressor [Comp-Air 1 each ASDIR #1 each 03/01/19 Nebulizer System] Albuterol 2.5/Ipratropium 0.5 1 puff IH Q6H 03/03/19 [Duoneb -] traZODone HCL [Trazodone HCl] 50 mg PO HS 03/03/19 ASSESSMENT AND PLAN: 88 year old female with history of chronic diastolic CHF, ESRD on HD (Saturday, , Saturday via right tunneled catheter), paroxysmal atrial fibrillation (on Eliquis), Hx CVA, Chronic Respiratory Failure sec to COPD, CAD, hypertension , hyperlpidemia, presents with recurrent complaints of shortness of breath, after being discharged yesterday. this is her 4th presentation to ED and 3rd admission in [address] Chest - COPD changes with small bilateral pleural effusions R>L 1. Fluid Overload secondary to ESRD s/p HD yesterday Continue Lasix on non-HD days. 2. SOB likely secondary to Anxiety rather than fluid overload. Patient admits to anxiety, especially at night prompting her re-presentation to ED almost daily. Discussed with PCP who will consider starting anxiolytic chronically as an out- patient. 3. HTN - continue Metoprolol, Diltiazem 4. Atrial Fibrillation - continue BB, CCB, Eliquis. 5. HLD - Continue Simvastatin 6. GERD - Continue PPI 7. Chronic Respiratory Failure sec to COPD - Stable, no evidence of acute exacerbation. Continue Advair, Spiriva, albuterol PRN 8. 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 Iron Sat 4% - discussed with Nephrology - to start on Ferrous Sulfate orally. DVT Px - on Eliquis
[2019-03-04] MEDS ORDERED: DOCUSATE SODIUM 100 MG CAPSULE (FP) PO PRN (13:31)
[2019-03-04] MEDS: ATORVASTATIN CA 10 MG TABLET (FP) PO SCH (14:22)
[2019-03-04] MEDS ORDERED: CEFPODOXIME PROXETIL 100 MG TABLET PO SCH (14:30)
[2019-03-04 15:28] VITALS: PULSE 88; TEMP 97.8
[2019-03-04] MEDS ORDERED: FERROUS SO4 325 MG TABLET (FP) PO SCH (17:30)
[2019-03-04 19:23] VITALS: BP 98/59
--- NOTE | 2019-03-04 20:00 | DS ---
Physical Exam: SUBJECTIVE: Patient seen and examined OBJECTIVE: Vital Signs Period Temp Pulse Resp BP Sys/Perez Pulse Ox Last 24 Hr 97.5 F-97.8 F 84-106 18-20 96-105/49-71 95-98 PHYSICAL EXAM GENERAL: The patient is awake, alert, and fully oriented, in no acute distress. HEAD: Normal with no signs of trauma. EYES: PERRL, extraocular movements intact, sclera anicteric, conjunctiva clear. ENT: Ears normal, nares patent, oropharynx clear without exudates, moist mucous membranes. NECK: Trachea midline, full range of motion, supple. LUNGS: Breath sounds equal, clear to auscultation bilaterally, no wheezes, no crackles, no accessory muscle use. HEART: Regular rate and rhythm, S1, S2 without murmur, rub or gallop. ABDOMEN: Soft, nontender, nondistended, normoactive bowel sounds, no guarding, no rebound, no hepatosplenomegaly, no masses. EXTREMITIES: 2+ pulses, warm, well-perfused, no edema. NEUROLOGICAL: Cranial nerves II through XII grossly intact. Normal speech, gait not observed. PSYCH: Normal mood, normal affect. SKIN: Warm, dry, normal turgor, no rashes or lesions noted. LABS Laboratory Results - last 24 hr 03/04/19 07:40 Sodium 137 Potassium 4.2 Chloride 100 Carbon Dioxide 29 Anion Gap 9 BUN 29.2 H Creatinine 2.4 H Est GFR (CKD-EPI)AfAm 20.50 Est GFR (CKD-EPI)NonAf 17.69 Random Glucose 102 Calcium 9.6 HOSPITAL COURSE: Date of Admission:03/03/19 Date of Discharge: 03/04/19 Discharge Summary Problems reviewed: Yes Reason For Visit: ESRD,SOB,ASCITES,COPD,CHF Current Active Problems CHF exacerbation (Acute) COPD exacerbation (Acute) ESRD needing dialysis (Acute) Shortness of breath (Acute) Condition: Stable - Instructions Diet, Activity, Other Instructions: You were evaluated in the hospital for shortness of breath. You were given medications to help urinate out excess body water. You also received dialysis while you were here. You were also found to have a urinary tract infection. You were started on antibiotics while you were here, please continue taking them for 5 days. You already received the first dose here in the hospital. Your blood work shows that you have anemia. Please take an iron supplement, Ferrous sulfate twice a day. Please note that this causes black stools and constipation. You may take stool softeners, such as Colace, as needed for constipation. Medications: 1. [id number] twice a day for 5 days starting tonight. 2. Ferrous sulfate 325mg twice a day. 3. Colace 100mg twice a day as needed for constipation. TAKE LASIX 80MG ONCE A DAY ON DAYS YOU DO NOT HAVE DIALYSIS. DO NOT TAKE LASIX ON DIALYSIS DAYS. Please Continue all your other home medications like before. Follow up: Dr. Johnson, primary care, within [address] Barrios, nephrology. Resume your normal dialysis schedule(//Sat). Diet: It is important to eat a low salt diet and limit the amount of liquids you drink to 4 8oz cups a day. This will prevent fluid from building up in your body. Other instructions: Monitor your weight daily. If you notice a 2-3 pound weight gain in 4-5 days, call Dr. Johnson or Dr. Barrios. You can also go to the emergency room. Keep your legs elevated if possible to help the swelling in your legs. Return to the emergency room also if you have chest pain, difficulty breathing, or lightheadedness/dizziness or any new concerns. Referrals: Diaz Johnson MD [Primary Care Provider] - Michell Barrios MD [Staff Physician] - Disposition: HOME - Home Medications Comprehensive Discharge Medication List: Ambulatory Orders Fluticasone/Salmeterol [Advair Hfa 230-21 Mcg Inhaler] 12 gm IH DAILY 05/22/17 Omeprazole 40 mg PO DAILY 05/22/17 Simvastatin 40 mg PO DAILY 05/22/17 Tiotropium [place] [Spiriva] 2.5 mcg IH BID 05/22/17 Diltiazem Cd [Cardizem Cd -] 120 mg PO DAILY 30 Days #30 cap.cd.24h 01/26/19 Metoprolol Succinate [Toprol Xl] 50 mg PO BID 30 Days #60 tab.er.24h 01/26/19 Furosemide 80 mg PO ASDIR #30 tablet 02/18/19 Lactobacillus Acidophilus [Bacid -] 1 each PO DAILY 7 Days #7 capsule 02/18/19 Apixaban [Eliquis -] 2.5 mg PO BID tablet 02/25/19 Acetaminophen [Tylenol .Regular Strength -] 650 mg PO Q6H PRN tablet 03/01/19 Albuterol Sulfate Inhaler - [Ventolin HFA Inhaler -] 2 puff IH Q4H PRN inhaler 03/01/19 Nebulizer and Compressor [Comp-Air Nebulizer System] 1 each ASDIR #1 each Albuterol 2.5/Ipratropium 0.5 [Duoneb -] 1 puff IH Q6H 03/03/19 traZODone HCL [Trazodone HCl] 50 mg PO HS 03/03/19 Cefpodoxime Proxetil [Vantin -] 100 mg PO BID #9 tablet 03/04/19 Docusate Sodium [Colace -] 100 mg PO BID PRN #60 capsule 03/04/19 Ferrous Sulfate [Feosol] 325 mg PO BIDWM #60 ud 03/04/19 ATTENDING PHYSICIAN STATEMENT I saw and evaluated the patient. I reviewed the resident's note and discussed the case with the resident. I agree with the resident's findings and plan as documented. SUBJECTIVE: OBJECTIVE: ASSESSMENT AND PLAN:
[2019-03-04] MEDS ORDERED: ATORVASTATIN CA 10 MG TABLET (FP) PO SCH (22:00)
[2019-03-05] MEDS ORDERED: ATORVASTATIN CA 10 MG TABLET (FP) PO SCH (10:00)
[2019-03-05] MEDS ORDERED: EPOETIN ALFA 2,000 UNIT/1 ML VIAL IVPUSH ONE (12:05)
[2019-03-05] MEDS ORDERED: ALBUMIN HUMAN 25% 12.5 GM/50 ML VIAL IVPB SCH (12:15)
== END 2019-03-04 20:48 | disposition home or self-care (01) | DRG 291 ==
LOC: JER 05:09 → JERBED 10:03 → J5S 16:55
PROC: 5A1D70Z Performance of Urinary Filtration, Intermittent, Less than 6 Hours Per Day (ICD-10-PCS; principal; 2019-03-03)
DX: I13.2 Hypertensive heart and chronic kidney disease with heart failure and with stage 5 chronic kidney disease, or end stage renal disease (principal); N18.6 End stage renal disease; J90 Pleural effusion, not elsewhere classified; J96.10 Chronic respiratory failure, unspecified whether with hypoxia or hypercapnia; N39.0 Urinary tract infection, site not specified; E87.70 Fluid overload, unspecified; I48.0 Paroxysmal atrial fibrillation; B96.1 Klebsiella pneumoniae [K. pneumoniae] as the cause of diseases classified elsewhere; J44.9 Chronic obstructive pulmonary disease, unspecified; I50.9 Heart failure, unspecified; I25.10 Atherosclerotic heart disease of native coronary artery without angina pectoris; K21.9 Gastro-esophageal reflux disease without esophagitis; D50.9 Iron deficiency anemia, unspecified; F41.9 Anxiety disorder, unspecified; D63.8 Anemia in other chronic diseases classified elsewhere; E78.5 Hyperlipidemia, unspecified; Z95.0 Presence of cardiac pacemaker; Z86.73 Personal history of transient ischemic attack (TIA), and cerebral infarction without residual deficits; Z99.81 Dependence on supplemental oxygen; Z99.2 Dependence on renal dialysis
CPT/HCPCS: 36415; 71250-TC; 80048; 80053; 81003; 83605; 83690; 83735; 83880; 84100; 84484; 85025; 87086; 87186; 93005; 93010; 99285-25; J0885; P9047